=== PATIENT | female | born 1995 | race Caucasian/White ===

== ENCOUNTER 2023-08-14 14:55 | Emergency (ER) | payer MEDICAID, SELFPAY ==
[2023-08-14 15:00] VITALS: BP 140/79; PULSE 91; TEMP 37.2; O2SAT 95; BMI 33.8
--- NOTE | 2023-08-14 15:13 | ED_ITS ---
HPI HPI - General Adult General Chief complaint: Abdominal Pain Stated complaint: UTI SYMPTOMS, NAUSEA, ABDOMINAL PAIN Time Seen by Provider: 08/14/23 14:57 Source: patient Mode of arrival: walk-in Limitations: no limitations History of Present Illness HPI narrative: Patient presents to ED complaining of nausea vomiting and lower abdominal pain. She has low-grade fever at 99. She has a history of UTIs and started having some frequency yesterday. She took Azo and then today started having right lower abdominal pain. She has some mild right flank pain but more of its anterior. She also reports history of ovarian cyst which feels similar to this in the past. She reports that she is unable to get because she has had a surgery on her tubes before. She reports 2 episodes of vomiting today. She is alert, ambulated to the bathroom and back in no acute distress. She does still have her gallbladder and appendix. Related Data Home Medications ?Medication ?Instructions ?Recorded ?Confirmed cariprazine 3 mg capsule (Vraylar) mg 08/14/23 lamotrigine 100 mg tablet mg 08/14/23 lamotrigine 150 mg tablet mg 08/14/23 sertraline 50 mg tablet mg 08/14/23 Previous Rx's ?Medication ?Instructions ?Recorded ciprofloxacin HCl 500 mg tablet 500 mg PO BID 7 days #14 tabs 08/14/23 (Cipro) ondansetron 4 mg disintegrating 4 mg PO DAILY PRN nausea and 08/14/23 tablet vomiting #15 tabs oxycodone-acetaminophen 5 mg-325 1 tab PO Q6H #10 tabs 08/14/23 mg tablet (Percocet) tamsulosin 0.4 mg capsule (Flomax) 0.4 mg PO DAILY #14 caps 08/14/23 Allergies Allergy/AdvReac Type Severity Reaction Status Date / Time No Known Drug Allergies Allergy Verified 08/14/23 15:02 Opioid HPI Opioid Management Most Recent Opioid Data: Last Pain Scale 6 08/14/23 17:02 Last MAR Pain Assessment 08/14/23 17:02 Review of Systems ROS Status of ROS 10 or more systems reviewed and unremark able except as noted in history and below Exam Narrative Exam Narrative: Time Seen: [] Vital Signs: [Per nurse's notes.] General: [Alert] Skin: [Warm, dry, no rash.] Head: [Normocephalic, atraumatic.] Neck: [Supple, trachea midline.] Eye: [Pupils are equal, round and reactive to light, extraocular movements are intact, normal conjunctiva.] Ears, nose, mouth and throat: oral mucosa moist. Cardiovascular: [Regular rate and rhythm, no murmur.] Respiratory: [Lungs are clear to auscultation, respirations are non-labored, breath sounds are equal.] Chest wall: [No tenderness, no deformity.] Gastrointestinal: [Soft, Mild to moderate tenderness right lower quadrant non distended, normal bowel sounds.] MSK: 5 out of 5 muscle strength x 4 extremities no calf pain or edema Lymphatics: [No lymphadenopathy.] Psychiatric: [Cooperative, appropriate mood & affect.] Neurological: [Alert and oriented to person, place, time, and situation, no focal neurological deficit observed.] Constitutional Vital Signs, click to edit/add: Last Vital Signs Temp 99.0 F 08/14/23 15:00 Pulse 91 H 08/14/23 15:00 Resp 16 08/14/23 15:00 BP 140/79 08/14/23 15:00 Pulse Ox 95 08/14/23 15:00 O2 Del Method Room Air 08/14/23 15:00 Course Vital Signs Vital signs: Vital Signs Temperature 99.0 F 08/14/23 15:00 Pulse Rate 91 H 08/14/23 15:00 Respiratory Rate 16 08/14/23 15:00 Blood Pressure 140/79 08/14/23 15:00 Pulse Oximetry 95 08/14/23 15:00 Oxygen Delivery Method Room Air 08/14/23 15:00 Temperature 99.0 F 08/14/23 15:00 Pulse Rate 91 H 08/14/23 15:00 Respiratory Rate 16 08/14/23 15:00 Blood Pressure 140/79 08/14/23 15:00 Pulse Oximetry 95 08/14/23 15:00 Oxygen Delivery Method Room Air 08/14/23 15:00 Medical Decision Making [facility] Narrative Medical decision making narrative: Patient has a 2 mm stone on the right. White blood cell count 13. BUN/creatinine are normal. Patient's pain is better with the medication although not completely resolved. She was given another dose of pain medication which did help. Patient will be sent home with pain medicine nausea medicine and Cipro. Her mom worked for a urology office for many years and she states she will be able to get close follow-up with urology. Patient instructed to return if fevers chills vomiting worsening pain or any other symptoms persist. Patient comfortable care plan for home. Differential Diagnosis Differential Diagnosis: UTI, pyelonephritis, kidney stone, acute appendicitis Medical Records Medical records reviewed: Yes I reviewed the patient's medical records Lab Data Lab results reviewed: Yes I reviewed the patient's lab results Labs: Lab Results 08/14/23 08/14/23 Range/Units 15:27 15:30 WBC 13.1 H (4.0-11.0) 10^3/uL RBC 4.72 (4.20-5.40) 10^6/uL Hgb 12.3 (12.0-16.0) g/dL Hct 38.5 (36.0-48.0) % MCV 81.6 (81.0-99.0) fL MCH 26.1 L (26.7-34.0) pg MCHC 31.9 (29.9-35.2) g/dL RDW 14.9 (11.0-15.0) % Plt Count 473 H (150-450) 10^3/uL MPV 9.3 L (9.5-13.5) fL Neut % (Auto) 62.6 (43.0-75.0) % Lymph % (Auto) 29.2 (20.5-60.0) % [place] % (Auto) 5.7 (1.7-12.0) % Eos % (Auto) 1.8 (0.9-7.0) % Baso % (Auto) 0.4 (0.2-2.0) % Neut # (Auto) 8.2 H (1.4-6.5) 10^3/uL Lymph # (Auto) 3.8 (1.2-3.8) 10^3/uL [place] # (Auto) 0.8 (0.3-0.8) 10^3/uL Eos # (Auto) 0.2 (0.0-0.7) 10^3/uL Baso # (Auto) 0.1 (0.0-0.1) 10^3/uL Abs Immat Gran (auto) 0.04 H (0.00-0.03) 10^3/uL Imm/Tot Granulo (auto) 0.3 (0.0-0.5) % Sodium 140 (136-145) mmol/L Potassium 3.7 (3.5-5.1) mmol/L Chloride 102 (98-107) mmol/L Carbon Dioxide 28.9 (21.0-32.0) mmol/L Anion Gap 12.8 BUN 17.0 (7.0-18.0) mg/dL Creatinine 0.93 (0.55-1.02) mg/dL Est GFR ( Amer) >60 (>=60) Est GFR (Non-Af Amer) >60 (>=60) BUN/Creatinine Ratio 18.3 Glucose 89 (74-106) mg/dL Calcium 9.1 (8.5-10.1) mg/dL Total Bilirubin 0.3 (0.2-1.0) mg/dL AST 8 L (15-37) U/L ALT 32 (14-59) U/L Alkaline Phosphatase 127 H (46-116) U/L Total Protein 8.3 H (6.4-8.2) g/dL Albumin 3.9 (3.4-5.0) g/dL Globulin 4.4 g/dL Albumin/Globulin Ratio 0.9 Urine Color Dk. orange (YELLOW) Urine Clarity Clear (CLEAR) Urine pH Color interference A (5.0-9.0) Ur Specific [place] 1.025 (1.005-1.025) Urine Protein Color interference A (NEG/TRACE) mg/dL Urine Glucose (UA) Color interference A (NEGATIVE) mg/dL Urine Ketones Color interference A (NEGATIVE) mg/dL Urine Occult Blood Color interference A (NEGATIVE) Urine Nitrite Color interference A (NEGATIVE) Urine Bilirubin Color interference A (NEGATIVE) Urine Urobilinogen Color interference A (0.2-1.0) EU/dL Ur Leukocyte Esterase Color interference A (NEGATIVE) Urine RBC 20-50 A (0-2) #/HPF Urine WBC 0-2 A (NONE SEEN) #/HPF Ur Squamous Epith Cells Few A (NONE/RARE) #/LPF Urine Crystals None seen (None Seen) #/HPF Urine Bacteria Trace A (NONE SEEN) #/HPF Urine Casts None seen (NONE SEEN) #/LPF Urine Mucus Trace A (NONE SEEN) Ur Culture Indicated? No Urine HCG, Qual Negative (NEGATIVE) Imaging Data CT scan - abdomen: Radiologist's impression: ITS Impressions Abdomen/Pelvis CT 08/14/23 16:07 IMPRESSION: 1. Obstructing 2 mm right UVJ stone resulting in mild hydronephrosis. Bilateral nephrolithiasis.. 2. Mild thickening of the terminal ileum. Correlate for terminal ileitis. Electronically authenticated by: MIL KILLIAN Date: 08/14/2023 16:53 Discharge Plan Discharge Stand Alone Forms: Portal Instructions Chief Complaint: Abdominal Pain Clinical Impression: Kidney stone Patient Disposition: Home, Self-Care Time of Disposition Decision: 17:07 Condition: Good Mode of Transportation: Private Vehicle Prescriptions / Home Meds: New ciprofloxacin HCl [Cipro] 500 mg tablet 500 mg PO BID 7 Days Qty: 14 0RF oxycodone-acetaminophen [Percocet] 5-325 mg tablet 1 tab PO Q6H Qty: 10 0RF tamsulosin [Flomax] 0.4 mg capsule 0.4 mg PO DAILY Qty: 14 0RF ondansetron 4 mg tablet,disintegrating 4 mg PO DAILY PRN (Reason: nausea and vomiting) Qty: 15 0RF No Action lamotrigine 150 mg tablet sertraline 50 mg tablet lamotrigine 100 mg tablet Vraylar 3 mg capsule Print Language: Hungarian Instructions: Kidney Stones (ED) Referrals: CHETAN RUTH [Primary Care Provider] - 1 week
[2023-08-14] MEDS: ONDANSETRON PF 4 MG/2 ML VIAL IV (15:33)
[2023-08-14] MEDS: KETOROLAC TROMETHAMINE 30 MG/ML VIAL 15 MG IVP (15:35)
[2023-08-14] MEDS: 0.9 % SODIUM CHLORIDE 1,000 ML 999 ML IV (15:37)
[2023-08-14 15:52] LABS: Basophils Absolute Auto 0.1 10^3/uL (0.0-0.1); Basophils Percent Auto 0.4 % (0.2-2.0); Eosinophils Absolute Auto 0.2 10^3/uL (0.0-0.7); Eosinophils Percent Auto 1.8 % (0.9-7.0); Hematocrit 38.5 % (36.0-48.0); Hemoglobin 12.3 g/dL (12.0-16.0); Immature Granulocytes Abs Auto 0.04 10^3/uL (0.00-0.03); Immature Granulocytes Pct Auto 0.3 % (0.0-0.5); Lymphocytes Absolute Auto 3.8 10^3/uL (1.2-3.8); Lymphocytes Percent Auto 29.2 % (20.5-60.0); Mean Corpuscular HGB Conc 31.9 g/dL (29.9-35.2); Mean Corpuscular Hemoglobin 26.1 pg (26.7-34.0); Mean Corpuscular Volume 81.6 fL (81.0-99.0); Mean Platelet Volume 9.3 fL (9.5-13.5); Monocytes Absolute Auto 0.8 10^3/uL (0.3-0.8); Monocytes Percent Auto 5.7 % (1.7-12.0); Neutrophils Absolute Auto 8.2 10^3/uL (1.4-6.5); Neutrophils Percent Auto 62.6 % (43.0-75.0); Platelet Count 473 10^3/uL (150-450); Red Blood Count 4.72 10^6/uL (4.20-5.40); Red Cell Distribution Width 14.9 % (11.0-15.0); White Blood Count 13.1 10^3/uL (4.0-11.0)
[2023-08-14 15:53] LABS: Clarity Urine CLEAR (CLEAR); Color Urine DK. ORANGE (YELLOW); Specific Gravity Urine 1.025 (1.005-1.025)
[2023-08-14 15:56] LABS: HCG Qualitative Urine* NEGATIVE (NEGATIVE); Internal Control Within Normal Limits
[2023-08-14 16:00] LABS: Bilirubin Urine COLOR INTERFERENCE (NEGATIVE); Blood Urine COLOR INTERFERENCE (NEGATIVE); Glucose Urine UA COLOR INTERFERENCE mg/dL (NEGATIVE); Ketones Urine COLOR INTERFERENCE mg/dL (NEGATIVE); Leukocyte Esterase Urine COLOR INTERFERENCE (NEGATIVE); Nitrite Urine COLOR INTERFERENCE (NEGATIVE); Protein Urine COLOR INTERFERENCE mg/dL (NEG/TRACE); Urine Microscopic Indicated YES; Urobilinogen Urine COLOR INTERFERENCE EU/dL (0.2-1.0); pH Urine COLOR INTERFERENCE (5.0-9.0)
[2023-08-14 16:02] LABS: Bacteria Urine TRACE #/HPF (NONE SEEN); Cast Seen? NONE SEEN #/LPF (NONE SEEN); Crystals Seen? None Seen #/HPF (None Seen); Mucus Urine TRACE (NONE SEEN); RBC Urine 20-50 #/HPF (0-2); Squamous Epithelial Cell Urine FEW #/LPF (NONE/RARE); Urine Culture Indicated NO; WBC Urine 0-2 #/HPF (NONE SEEN)
[2023-08-14 16:06] LABS: Alanine Aminotransferase 32 U/L (14-59); Albumin Globulin Ratio 0.9; Albumin Level 3.9 g/dL (3.4-5.0); Alkaline Phosphatase 127 U/L (46-116); Anion Gap 12.8; Aspartate Amino Transferase 8 U/L (15-37); BUN Creatinine Ratio 18.3; Bilirubin Total 0.3 mg/dL (0.2-1.0); Calcium 9.1 mg/dL (8.5-10.1); Carbon Dioxide 28.9 mmol/L (21.0-32.0); Chloride 102 mmol/L (98-107); Estimated GFR (African America >60 (>=60); Estimated GFR (Non-African Ame >60 (>=60); Globulin 4.4 g/dL; Glucose 89 mg/dL (74-106); Potassium 3.7 mmol/L (3.5-5.1); Sodium 140 mmol/L (136-145); Total Protein 8.3 g/dL (6.4-8.2)
--- NOTE | 2023-08-14 16:07 | CT_ITS ---
The [address] [address] Patient Name: LEONA GOODSON MRN: [id number] date: 1995 Sex: F Assigned Patient Location: ER Current Patient Location: ER Accession/Order Number: [id number] Exam Date: 08/14/2023 16:11 Report Date: 08/14/2023 16:53 At the request of: MONET GAYTAN Procedure: CT abdomen pelvis w con CT ABDOMEN/PELVIS WITH IV CONTRAST. INDICATION: RLQ pain. COMPARISON: 09/28/2011. TECHNIQUE: Contiguous axial images were obtained from the lung bases to the pelvic floor following the intravenous administration of contrast. Coronal and sagittal reformations are provided. FINDINGS: LOWER LUNGS: Clear. LIVER/BILIARY TREE: No mass. No intrahepatic ductal dilatation. GALLBLADDER: No significant gallbladder wall thickening. No radiopaque stone. CBD: Normal CBD. SPLEEN: Normal in size. PANCREAS: No acute findings. No peripancreatic fluid or inflammation. No pancreatic duct dilatation. No discrete mass. ADRENALS: Normal. KIDNEYS: There is an obstructing 2 x 2 mm right UVJ stone resulting in mild hydronephrosis There are nonobstructing bilateral renal stones measuring up to 6 mm. STOMACH AND BOWEL: Stomach is unremarkable. No dilated bowel loops. There is mild thickening of the terminal ileum APPENDIX: Unremarkable. PERITONEAL CAVITY: No fluid. No fat stranding. ABDOMINAL WALL: No subcutaneous stranding. No subcutaneous fluid collection. There is a small umbilical hernia containing fat LYMPH NODES: No mesenteric or retroperitoneal lymphadenopathy by CT criteria. ABDOMINAL AORTA: No aneurysm. PELVIS: Right UVJ 2 mm stone as described above MUSCULOSKELETAL: No acute osseous abnormality. CT/CT abdomen pelvis w con IMPRESSION: 1. Obstructing 2 mm right UVJ stone resulting in mild hydronephrosis. Bilateral nephrolithiasis.. 2. Mild thickening of the terminal ileum. Correlate for terminal ileitis. Electronically authenticated by: MIL KILLIAN Date: 08/14/2023 16:53
[2023-08-14] MEDS: MORPHINE SULFATE 4 MG/ML VIAL IV (17:02)
[2023-08-14 17:19] VITALS: BP 104/60; PULSE 88; O2SAT 100
== END 2023-08-14 17:19 | disposition home or self-care (01) ==
PROVIDERS: Emergency Provider Emergency Medicine; PCP Family Medicine
DX: N20.0 Calculus of kidney (principal); Z87.440 Personal history of urinary (tract) infections
CPT/HCPCS: 36415; 74177; 80053; 81001; 84703; 85025; 96361; 96374; 96375; 99285; J1885; J2270; J2405; Q9967

== ENCOUNTER 2023-08-16 04:43 | Observation (INO) | payer MEDICAID, SELFPAY ==
[2023-08-16] VITALS (15 sets, daily range): BP systolic 88–147; BP diastolic 59–95; PULSE 61–86; TEMP 36.7–36.9; O2SAT 90–97; BMI 33.8; BMI 35.3
--- NOTE | 2023-08-16 05:00 | XR_ITS ---
The [address] [address] Patient Name: LEONA GOODSON MRN: [id number] date: 1995 Sex: F Assigned Patient Location: ER Current Patient Location: ER Accession/Order Number: [id number] Exam Date: 08/16/2023 06:08 Report Date: 08/16/2023 06:29 At the request of: EVANS MARKER Procedure: XR abdomen 1V EXAM: XR abdomen 1V HISTORY: right sided kidney stone COMPARISON: CT abdomen pelvis, 08/14/2023. TECHNIQUE: AP abdominal x-ray. FINDINGS: There are 2 adjacent stones in the upper pole of the right kidney measuring 3 mm. Previously noted 2 mm stone at the right UVJ is not visualized. Several pelvic phleboliths are incidentally noted. Bowel gas pattern appears normal. XR/XR abdomen 1V IMPRESSION: 1. Right-sided nephrolithiasis. 2. Nonvisualization of the tiny 2 mm stone at the right UVJ seen on recent abdominal CT scan. This may be too small to visualize or passed in the interval. 3. No acute abdominal findings. Electronically authenticated by: CHRISTINE GREEN Date: 08/16/2023 06:29
--- NOTE | 2023-08-16 05:17 | ED.ABDPAIN1 ---
HPI - Abdominal Pain General Chief Complaint: Abdominal Pain Stated Complaint: ABD PAIN Time Seen by Provider: 08/16/23 04:50 Source: patient Mode of arrival: walk-in Limitations: no limitations History of Present Illness HPI narrative: This 27-year-old female who was diagnosed with a 2 mm right-sided kidney stone on Sunday, 2 days ago presents for evaluation of intractable pain and intractable nausea and vomiting. She states she cannot keep down the nausea medicine, the antibiotics, the Flomax or the Percocet she was prescribed for pain control and nausea control and to help her pass the stone. She has not had any fever. She denies any chest pain or shortness of breath. She states she has been vomiting so much that she is barely urinating. I reviewed her chart from her ED visit on 08/14/2023. At that time she presented with a low-grade fever of 99 and had a white count of 13 and antibiotics were ordered. Her urine at that time was contaminated with Azo and not cultured. Related Data Home Medications ?Medication ?Instructions ?Recorded ?Confirmed cariprazine 3 mg capsule (Vraylar) mg 08/14/23 lamotrigine 100 mg tablet mg 08/14/23 lamotrigine 150 mg tablet mg 08/14/23 sertraline 50 mg tablet mg 08/14/23 Previous Rx's ?Medication ?Instructions ?Recorded ciprofloxacin HCl 500 mg tablet 500 mg PO BID 7 days #14 tabs 08/14/23 (Cipro) ondansetron 4 mg disintegrating 4 mg PO DAILY PRN nausea and 08/14/23 tablet vomiting #15 tabs oxycodone-acetaminophen 5 mg-325 1 tab PO Q6H #10 tabs 08/14/23 mg tablet (Percocet) tamsulosin 0.4 mg capsule (Flomax) 0.4 mg PO DAILY #14 caps 08/14/23 Allergies Allergy/AdvReac Type Severity Reaction Status Date / Time No Known Drug Allergies Allergy Verified 08/16/23 04:50 Review of Systems ROS Status of ROS 10 or more systems reviewed and unremarkable except as noted in history and below Exam Narrative Exam Narrative: Vital signs and Nursing Notes reviewed: Patient is afebrile with a normal pulse, blood pressure is elevated at 147/95, she is not hypoxic with pulse ox of 96% on room air General: Awake, alert, nontoxic but uncomfortable appearing female, she is lying on her right side and crying, no respiratory distress, multiple episodes of dry heaves in the emergency department HEENT: Normocephalic atraumatic, mucous membranes are pink and dry Chest: Lungs are clear to auscultation with good air entry, there is no wheezing rhonchi or rales appreciated no accessory muscle use, patient is speaking in complete sentences-no chest wall tenderness to palpation CVS: Regular rate and rhythm S1-S2, no murmurs rubs or gallops, pulses are brisk and equal bilaterally ABD: Soft, nondistended, mild tenderness in the right lower quadrant and along the distribution of the right ureter and right lower lumbar region Extremities: Moving all extremities, no lower extremity tenderness or swelling noted, negative Homans' sign, pulses are brisk and equal bilaterally Skin: Normal in appearance without rash,pallor, petechiae or purpura Neuro: No focal deficits Constitutional Vital Signs, click to edit/add: Last Vital Signs Temp 98.1 F 08/16/23 04:47 Pulse 84 08/16/23 04:47 Resp 20 08/16/23 04:47 BP 147/95 H 08/16/23 04:47 Pulse Ox 96 08/16/23 04:47 O2 Del Method Room Air 08/16/23 04:47 Course Vital Signs Vital signs: Vital Signs Temperature 98.1 F 08/16/23 04:47 Pulse Rate 84 08/16/23 04:47 Respiratory Rate 20 08/16/23 04:47 Blood Pressure 147/95 H 08/16/23 04:47 Pulse Oximetry 96 08/16/23 04:47 Oxygen Delivery Method Room Air 08/16/23 04:47 Temperature 98.1 F 08/16/23 04:47 Pulse Rate 84 08/16/23 04:47 Respiratory Rate 20 08/16/23 04:47 Blood Pressure 147/95 H 08/16/23 04:47 Pulse Oximetry 96 08/16/23 04:47 Oxygen Delivery Method Room Air 08/16/23 04:47 MDM - Abdominal Pain MDM Narrative Medical decision making narrative: This 27-year-old female who was diagnosed with a 2 mm right-sided kidney stone on [place] [address] Brar and discharged home with Cipro, Zofran, Percocet and Flomax presents for evaluation of ongoing right lower quadrant abdominal pain with intractable nausea and vomiting. She states she cannot keep down any of her medications and is still having pain. She was noted to have a low-grade fever of 99 when she was here on Sunday. Her urine did not show any sign of infection but was contaminated with Azo and culture was not ordered. In light of this she was medicated with IV fluids, IV Zofran, IV Toradol, IV Dilaudid, IM Phenergan and a dose of IV Rocephin. Routine labs were ordered and she has an elevated WBC count at 15 today, 13.3 2 days ago-she has not had a fever and this may be due to her vomiting. Her BUN and creatinine are elevated compared to her baseline with a creatinine of 1.29 today likely indicating a degree of dehydration. After IV fluids Zofran Toradol Dilaudid and Phenergan she is feeling better. She is tolerating ice chips. She will receive an additional liter of normal saline and if she is able to tolerate ice chips and pain is under control she will be discharged home. I will change her antiemetics to Phenergan and her pain medication to [place] as her nausea and vomiting may be related to the medications as well as the recent kidney stone. X-ray of the abdomen does not show any stone at this time however it was noted that it may be too small to visualize on a KUB film. Medical Records Medical records narrative: [place] [address] XRay Report Signed Patient: LEONA GOODSON MR#: [id number] : 1995 Acct:[id number] Age/Sex: 27 / F ADM Date: 08/16/23 Loc: ER Attending Dr: Ordering Physician: Evans Marie Date of Service: 08/16/23 Procedure(s): XR abdomen 1V Accession Number(s): [id number] cc: CHETAN RUTH ; Evans Marie~ The [place] [id number] Patient Name: LEONA GOODSON MRN: [id number] date: 1995 Sex: F Assigned Patient Location: ER Current Patient Location: ER Accession/Order Number: [id number] Exam Date: 08/16/2023 06:08 Report Date: 08/16/2023 06:29 At the request of: EVANS MARKER Procedure: XR abdomen 1V EXAM: XR abdomen 1V HISTORY: right sided kidney stone COMPARISON: CT abdomen pelvis, 08/14/2023. TECHNIQUE: AP abdominal x-ray. FINDINGS: There are 2 adjacent stones in the upper pole of the right kidney measuring 3 mm. Previously noted 2 mm stone at the right UVJ is not visualized. Several pelvic phleboliths are incidentally noted. Bowel gas pattern appears normal. XR/XR abdomen 1V IMPRESSION: 1. Right-sided nephrolithiasis. 2. Nonvisualization of the tiny 2 mm stone at the right UVJ seen on recent abdominal CT scan. This may be too small to visualize or passed in the interval. 3. No acute abdominal findings Lab Data Labs: Lab Results 08/16/23 08/16/23 Range/Units 05:05 05:10 WBC 15.3 H (4.0-11.0) 10^3/uL RBC 4.83 (4.20-5.40) 10^6/uL Hgb 12.8 (12.0-16.0) g/dL Hct 39.4 (36.0-48.0) % MCV 81.6 (81.0-99.0) fL MCH 26.5 L (26.7-34.0) pg MCHC 32.5 (29.9-35.2) g/dL RDW 14.8 (11.0-15.0) % Plt Count 532 H (150-450) 10^3/uL MPV 9.4 L (9.5-13.5) fL Neut % (Auto) 78.8 H (43.0-75.0) % Lymph % (Auto) 15.7 L (20.5-60.0) % [place] % (Auto) 4.2 (1.7-12.0) % Eos % (Auto) 0.6 L (0.9-7.0) % Baso % (Auto) 0.4 (0.2-2.0) % Neut # (Auto) 12.0 H (1.4-6.5) 10^3/uL Lymph # (Auto) 2.4 (1.2-3.8) 10^3/uL [place] # (Auto) 0.6 (0.3-0.8) 10^3/uL Eos # (Auto) 0.1 (0.0-0.7) 10^3/uL Baso # (Auto) 0.1 (0.0-0.1) 10^3/uL Abs Immat Gran (auto) 0.05 H (0.00-0.03) 10^3/uL Imm/Tot Granulo (auto) 0.3 (0.0-0.5) % Sodium 138 (136-145) mmol/L Potassium 4.1 (3.5-5.1) mmol/L Chloride 101 (98-107) mmol/L Carbon Dioxide 27.6 (21.0-32.0) mmol/L Anion Gap 13.5 BUN 23.0 H (7.0-18.0) mg/dL Creatinine 1.29 H (0.55-1.02) mg/dL Est GFR ( Amer) 60 (>=60) Est GFR (Non-Af Amer) 50 L (>=60) BUN/Creatinine Ratio 17.8 Glucose 135 H (74-106) mg/dL Calcium 9.3 (8.5-10.1) mg/dL Total Bilirubin 0.3 (0.2-1.0) mg/dL AST 12 L (15-37) U/L ALT 30 (14-59) U/L Alkaline Phosphatase 125 H (46-116) U/L Total Protein 8.6 H (6.4-8.2) g/dL Albumin 4.0 (3.4-5.0) g/dL Globulin 4.6 g/dL Albumin/Globulin Ratio 0.9 Urine Color Lt. yellow (YELLOW) Urine Clarity Clear (CLEAR) Urine pH 7.0 (5.0-9.0) Ur Specific [place] 1.025 (1.005-1.025) Urine Protein Negative (NEG/TRACE) mg/dL Urine Glucose (UA) Negative (NEGATIVE) mg/dL Urine Ketones Negative (NEGATIVE) mg/dL Urine Occult Blood Small A (NEGATIVE) Urine Nitrite Positive A (NEGATIVE) Urine Bilirubin Negative (NEGATIVE) Urine Urobilinogen 0.2 (0.2-1.0) EU/dL Ur Leukocyte Esterase Negative (NEGATIVE) Urine RBC 2-5 A (0-2) #/HPF Urine WBC 5-10 A (NONE SEEN) #/HPF Ur Squamous Epith Cells Few A (NONE/RARE) #/LPF Urine Crystals Seen A (None Seen) #/HPF Amorphous Sediment Few Urine Bacteria Moderate A (NONE SEEN) #/HPF Urine Casts None seen (NONE SEEN) #/LPF Urine Mucus Large A (NONE SEEN) Ur Culture Indicated? Yes Discharge Plan Discharge Chief Complaint: Abdominal Pain Clinical Impression: Kidney stone Patient Disposition: Still a Patient Prescriptions / Home Meds: No Action lamotrigine 150 mg tablet sertraline 50 mg tablet lamotrigine 100 mg tablet Vraylar 3 mg capsule ciprofloxacin HCl [Cipro] 500 mg tablet 500 mg PO BID 7 Days Qty: 14 0RF oxycodone-acetaminophen [Percocet] 5-325 mg tablet 1 tab PO Q6H Qty: 10 0RF tamsulosin [Flomax] 0.4 mg capsule 0.4 mg PO DAILY Qty: 14 0RF ondansetron 4 mg tablet,disintegrating 4 mg PO DAILY PRN (Reason: nausea and vomiting) Qty: 15 0RF Print Language: Montenegrin Referrals: CHETAN RUTH [Primary Care Provider] - 1 week
[2023-08-16 05:34] LABS: Basophils Absolute Auto 0.1 10^3/uL (0.0-0.1); Basophils Percent Auto 0.4 % (0.2-2.0); Eosinophils Absolute Auto 0.1 10^3/uL (0.0-0.7); Eosinophils Percent Auto 0.6 % (0.9-7.0); Hematocrit 39.4 % (36.0-48.0); Hemoglobin 12.8 g/dL (12.0-16.0); Immature Granulocytes Abs Auto 0.05 10^3/uL (0.00-0.03); Immature Granulocytes Pct Auto 0.3 % (0.0-0.5); Lymphocytes Absolute Auto 2.4 10^3/uL (1.2-3.8); Lymphocytes Percent Auto 15.7 % (20.5-60.0); Mean Corpuscular HGB Conc 32.5 g/dL (29.9-35.2); Mean Corpuscular Hemoglobin 26.5 pg (26.7-34.0); Mean Corpuscular Volume 81.6 fL (81.0-99.0); Mean Platelet Volume 9.4 fL (9.5-13.5); Monocytes Absolute Auto 0.6 10^3/uL (0.3-0.8); Monocytes Percent Auto 4.2 % (1.7-12.0); Neutrophils Percent Auto 78.8 % (43.0-75.0); Platelet Count 532 10^3/uL (150-450); Red Blood Count 4.83 10^6/uL (4.20-5.40); Red Cell Distribution Width 14.8 % (11.0-15.0); White Blood Count 15.3 10^3/uL (4.0-11.0)
[2023-08-16] MEDS: ONDANSETRON PF 4 MG/2 ML VIAL IV (05:34)
[2023-08-16 05:35] LABS: Bilirubin Urine NEGATIVE (NEGATIVE); Blood Urine SMALL (NEGATIVE); Clarity Urine CLEAR (CLEAR); Color Urine LT. YELLOW (YELLOW); Glucose Urine UA NEGATIVE (NEGATIVE); Ketones Urine NEGATIVE (NEGATIVE); Leukocyte Esterase Urine NEGATIVE (NEGATIVE); Nitrite Urine POSITIVE (NEGATIVE); Protein Urine NEGATIVE (NEG/TRACE); Specific Gravity Urine 1.025 (1.005-1.025); Urobilinogen Urine 0.2 EU/dL (0.2-1.0)
[2023-08-16] MEDS: HYDROMORPHONE HCL 1 MG/ML CARTRIDGE IV (05:35)
[2023-08-16] MEDS: KETOROLAC TROMETHAMINE 30 MG/ML VIAL IVP (05:38)
[2023-08-16] MEDS: FAMOTIDINE/PF 20 MG/2 ML VIAL IV (05:39)
[2023-08-16] MEDS: 0.9 % SODIUM CHLORIDE 1,000 ML 1000 ML IV ×2 (05:41→06:22)
[2023-08-16] MEDS: PROMETHAZINE HCL 25 MG/ML VIAL 12.5 MG IM (05:41)
[2023-08-16 05:45] LABS: Amorphous Sediment Urine FEW; Bacteria Urine MODERATE #/HPF (NONE SEEN); Cast Seen? NONE SEEN #/LPF (NONE SEEN); Crystals Seen? Seen #/HPF (None Seen); Mucus Urine LARGE (NONE SEEN); Squamous Epithelial Cell Urine FEW #/LPF (NONE/RARE); Urine Culture Indicated YES
[2023-08-16 05:50] LABS: Alanine Aminotransferase 30 U/L (14-59); Albumin Globulin Ratio 0.9; Alkaline Phosphatase 125 U/L (46-116); Anion Gap 13.5; Aspartate Amino Transferase 12 U/L (15-37); BUN Creatinine Ratio 17.8; Bilirubin Total 0.3 mg/dL (0.2-1.0); Calcium 9.3 mg/dL (8.5-10.1); Carbon Dioxide 27.6 mmol/L (21.0-32.0); Chloride 101 mmol/L (98-107); Estimated GFR (African America 60 (>=60); Estimated GFR (Non-African Ame 50 (>=60); Globulin 4.6 g/dL; Glucose 135 mg/dL (74-106); Potassium 4.1 mmol/L (3.5-5.1); Sodium 138 mmol/L (136-145); Total Protein 8.6 g/dL (6.4-8.2)
[2023-08-16] MEDS: CEFTRIAXONE 1,000 MG in 0.9 % SODIUM CHLORIDE 50 ML 100 MG IV (06:18)
--- NOTE | 2023-08-16 09:48 | US_ITS ---
[address] [address] Patient Name: LEONA GOODSON MRN: [id number] date: 1995 Sex: F Assigned Patient Location: MS Current Patient Location: MS Accession/Order Number: [id number] Exam Date: 08/16/2023 11:00 Report Date: 08/16/2023 12:29 At the request of: JENNA ARREOLA Procedure: US renal bladder EXAMINATION: US renal bladder HISTORY: Flank Pain COMPARISON: 08/14/2023 TECHNIQUE: Ultrasound examination was performed of the bladder. FINDINGS: Right Kidney: Normal in size, contour and cortical echotexture. Hydronephrosis. Nonobstructing nephroliths. The cortex measures 0.9 cm. Height: 5.93 cm Length: 12.36 cm Width: 5.71 cm Left Kidney: Normal in size, contour and cortical echotexture. No hydronephrosis or solid cortical mass. Nonobstructing nephrolithiasis measuring up to 7 mm. The cortex measures 0.7 cm Height: 4.88 cm Length: 9.55 cm Width: 4.37 cm Urinary bladder: Prevoid volume 560 mL. Post void volume: 4 mL Distal right ureterolith measuring 6 mm. Ureteral jets: Not visualized on the right, normal on the left US/US renal bladder IMPRESSION: 6 mm distal right ureterolith with mild hydronephrosis Electronically authenticated by: PATEL LEVY Date: 08/16/2023 12:29
--- NOTE | 2023-08-16 09:51 | P.HP_ITS ---
HPI H&P: HPI History of Present Illness Chief complaint: ABD PAIN/ KIDNEY STONE Narrative: Patient with no history of kidney stones had acute onset of pain, was seen in the emergency room and found to have a 2 mm stone and sent home, her pain deteriorated so she Juvencio presented. Repeat KUB did not demonstrate the stone but does show significant hydronephrosis. Patient was admitted for pain control with positive UTI and possible pyelonephritis complicated by kidney stone with moderate hydronephrosis When I saw patient in the medical surgical floor, she was resting comfortably in bed. Did receive pain medication. Discussed plan of care for possible cystoscopy and stent placement later in the day. Patient denied any other complaints Opioid HPI Opioid Management Most Recent Pain and Opioid Data: Last Pain Scale 3 08/16/23 17:00 Last Pain Assessment 08/16/23 19:43 Last ED Pain Assessment 08/14/23 17:18 Last MAR Pain Assessment 08/14/23 17:02 Last ORT Total Score 4 08/16/23 09:46 Last ORT Risk Category Moderate Risk 08/16/23 09:46 Review of Systems ROS Status of ROS 10 or more systems reviewed and unremark able except as noted in history and below [facility] Medical History (Updated 08/16/23 @ 09:49 by Trena Pham) Bipolar 2 disorder ?F31.81 - Bipolar II disorder (ICD-10) Social History Highest level of school completed/degree received: Bachelor's degree Meds Home Medications and Allergies Home Medications ?Medication ?Instructions ?Recorded ?Confirmed ?Type ciprofloxacin HCl 500 mg tablet 500 mg PO BID 7 days #14 tabs 08/14/23 08/16/23 Rx (Cipro) lamotrigine 150 mg tablet 150 mg PO .QHS 08/14/23 08/16/23 History ondansetron 4 mg disintegrating 4 mg PO DAILY PRN nausea and 08/14/23 08/16/23 Rx tablet vomiting #15 tabs oxycodone-acetaminophen 5 mg-325 1 tab PO Q6H #10 tabs 08/14/23 08/16/23 Rx mg tablet (Percocet) tamsulosin 0.4 mg capsule (Flomax) 0.4 mg PO DAILY #14 caps 08/14/23 08/16/23 Rx cariprazine 3 mg capsule (Vraylar) 3 mg PO .QHS 08/16/23 08/16/23 History hyoscyamine sulfate 0.125 mg 0.125 mg sublingual QID #20 tabs 08/16/23 Rx sublingual tablet sertraline 50 mg tablet 50 mg PO .QHS 08/16/23 08/16/23 History Allergies Allergy/AdvReac Type Severity Reaction Status Date / Time No Known Drug Allergies Allergy Verified 08/16/23 04:50 Exam Constitutional Vital Signs, click to edit/add: Last Vital Signs Temp 98.0 F 08/16/23 09:46 Pulse 73 08/16/23 09:46 Resp 18 08/16/23 09:46 BP 100/66 08/16/23 09:46 Pulse Ox 93 L 08/16/23 09:46 O2 Del Method Room Air 08/16/23 09:46 Documenting provider has reviewed patient's vital signs: yes Common normals: no apparent distress HENMT Common normals: normocephalic Chest Common normals: inspection of chest normal Respiratory Common normals: normal respiratory effort and no retractions Cardio Common normals: regular rate and regular rhythm GI Common normals: Normal to inspection, nondistended, normoactive bowel sounds present Results Labs Labs: Short CBC 08/16/23 Range/Units 05:10 WBC 15.3 H (4.0-11.0) 10^3/uL Hgb 12.8 (12.0-16.0) g/dL Hct 39.4 (36.0-48.0) % Plt Count 532 H (150-450) 10^3/uL BMP 08/16/23 05:10 Sodium 138 Potassium 4.1 Chloride 101 Carbon Dioxide 27.6 BUN 23.0 H Creatinine 1.29 H Glucose 135 H Calcium 9.3 Liver Function 08/16/23 Range/Units 05:10 Total Bilirubin 0.3 (0.2-1.0) mg/dL AST 12 L (15-37) U/L ALT 30 (14-59) U/L Alkaline Phosphatase 125 H (46-116) U/L Albumin 4.0 (3.4-5.0) g/dL Urine 08/16/23 Range/Units 05:05 Urine Color Lt. yellow (YELLOW) Urine Clarity Clear (CLEAR) Urine pH 7.0 (5.0-9.0) Ur Specific Stephan 1.025 (1.005-1.025) Urine Protein Negative (NEG/TRACE) mg/dL Urine Glucose (UA) Negative (NEGATIVE) mg/dL Assessment and Plan Assessment and Plan (1) Kidney stone: Plan Uncontrolled hypertension, acute kidney injury with a baseline creatinine of 0.93 progressing to 1.21, that is 138.7% above baseline. Significant leukocytosis, thrombocythemia, elevated liver function tests secondary to acute right-sided pyelonephritis secondary to obstructive kidney stone with moderate hydronephrosis. Case discussed with urology. Plan for cystoscopy later in the day. Plan of care based on findings at cystoscopy Bipolar disorder-continue with home medications Acute kidney injury as outlined above-IV fluids Leukocytosis as outlined above-monitor daily Admission status: With kidney stone, possible discharge later today so placed patient observation status.
[2023-08-16] MEDS: LACTATED RINGER'S SOLUTION 1,000 ML 100 ML IV (10:32)
--- NOTE | 2023-08-16 10:50 | CM.NOTE ---
Rounds made with Dr. Boone. Dr. Boone reviewed plan of care w Emma and plan for OR. Emma verbalizes understanding. Dr. Boone discussed possible discharge later today after surgery
[2023-08-16 10:58] LABS: Lactate/Lactic Acid 1.4 mmol/L (0.4-2.0)
[2023-08-16 11:15] LABS: HCG Qualitative NEGATIVE (NEGATIVE); Internal Control Within Normal Limits
[2023-08-16] MEDS: TAMSULOSIN HCL 0.4 MG CAPSULE 0.400000000000000022 MG PO (12:30)
[2023-08-16] MEDS: CIPROFLOXACIN IN 5 % DEXTROSE 400 MG/200 ML PIGGYBACK 200 MG IV (12:31)
[2023-08-16] MEDS: HYOSCYAMINE SULFATE 0.125 MG TAB.SUBL SL (12:31)
--- NOTE | 2023-08-16 18:47 | PM.DS1 ---
DS: Providers Provider Date of admission: 08/16/23 08:50 Primary care physician: CHETAN RUTH Consults: 08/16/23 09:45 Consult to Pharmacy Routine Consulting Provider: Reason for consultation: Please [place] me when Med Rec is Updated Has provider been notified: No Consult to Urology Routine Consulting Provider: Jesse Ba Reason for consultation: hydronepohrosis Has provider been notified: Yes DS: Diagnosis Discharge Diagnosis (1) Kidney stone: Plan Right-sided hydronephrosis with right sided ureteral lithiasis. Status post cystoscopy DS: Summary Hospital Course Hospital Course: Patient was admitted with hydronephrosis after failed outpatient treatment of nephrolithiasis. Patient was made NPO. She had cystoscopy done. See operative report. Patient stable after procedure and was discharged to home in improving condition. Medications see list. Follow-up with PCP and urology as indicated. Status at Discharge Overall status at discharge: patient is not back to baseline Time Spent with Patient Time attestation: Total time spent providing and/or coordinating discharge services: Time spent: less than 30 minutes Exam Constitutional Vital Signs, click to edit/add: Last Vital Signs Temp 98.0 F 08/16/23 09:46 Pulse 73 08/16/23 09:46 Resp 18 08/16/23 09:46 BP 100/66 08/16/23 09:46 Pulse Ox 97 08/16/23 16:15 O2 Del Method Room Air 08/16/23 16:15 Documenting provider has reviewed patient's vital signs: yes Common normals: no apparent distress HENOH Common normals: normocephalic Chest Common normals: inspection of chest normal Respiratory Common normals: normal respiratory effort and no retractions Cardio Common normals: regular rate and regular rhythm GI Common normals: Normal to inspection, nondistended, normoactive bowel sounds present DS: Data Data Completed and Pending Labs on day of discharge: Labs from last 24 hours 08/16/23 08/16/23 08/16/23 10:11 05:10 05:05 WBC 15.3 H RBC 4.83 Hgb 12.8 Hct 39.4 MCV 81.6 MCH 26.5 L MCHC 32.5 RDW 14.8 Plt Count 532 H MPV 9.4 L Neut % (Auto) 78.8 H Lymph % (Auto) 15.7 L [place] % (Auto) 4.2 Eos % (Auto) 0.6 L Baso % (Auto) 0.4 Neut # (Auto) 12.0 H Lymph # (Auto) 2.4 [place] # (Auto) 0.6 Eos # (Auto) 0.1 Baso # (Auto) 0.1 Abs Immat Gran (auto) 0.05 H Imm/Tot Granulo (auto) 0.3 Sodium 138 Potassium 4.1 Chloride 101 Carbon Dioxide 27.6 Anion Gap 13.5 BUN 23.0 H Creatinine 1.29 H Est GFR ( Amer) 60 Est GFR (Non-Af Amer) 50 L BUN/Creatinine Ratio 17.8 Glucose 135 H Lactate 1.4 Calcium 9.3 Total Bilirubin 0.3 AST 12 L ALT 30 Alkaline Phosphatase 125 H Total Protein 8.6 H Albumin 4.0 Globulin 4.6 Albumin/Globulin Ratio 0.9 Serum HCG, Qual Negative Urine Color Lt. yellow Urine Clarity Clear Urine pH 7.0 Ur Specific [place] 1.025 Urine Protein Negative Urine Glucose (UA) Negative Urine Ketones Negative Urine Occult Blood Small A Urine Nitrite Positive A Urine Bilirubin Negative Urine Urobilinogen 0.2 Ur Leukocyte Esterase Negative Urine RBC 2-5 A Urine WBC 5-10 A Ur Squamous Epith Cells Few A Urine Crystals Seen A Amorphous Sediment Few Urine Bacteria Moderate A Urine Casts None seen Urine Mucus Large A Ur Culture Indicated? Yes Discharge Plan Discharge Disposition: Home, Self-Care Condition: Good Assessment: Pt is A&OX4, speech clear and appropriate. Gait steady without dizziness or complaint. IV discontinued without complications. Denies pain at present time. C/O irritation at urethra. Discussed discharge instructions. Pt educated to best of RN's capabilities. Plan of Treatment: Pt discharged with plan to follow up in office with PCP and Urology. Discharge Medications: New hyoscyamine sulfate 0.125 mg Tablet, Sublingual 0.125 mg sublingual QID Qty: 20 0RF Continued lamotrigine 150 mg tablet 150 mg PO .QHS ciprofloxacin HCl [Cipro] 500 mg tablet 500 mg PO BID 7 Days Qty: 14 0RF oxycodone-acetaminophen [Percocet] 5-325 mg tablet 1 tab PO Q6H Qty: 10 0RF tamsulosin [Flomax] 0.4 mg capsule 0.4 mg PO DAILY Qty: 14 0RF ondansetron 4 mg tablet,disintegrating 4 mg PO DAILY PRN (Reason: nausea and vomiting) Qty: 15 0RF sertraline 50 mg tablet 50 mg PO .QHS Vraylar 3 mg capsule 3 mg PO .QHS Activity: increase activity as tolerated, return to work once cleared by your PCP/specialist and resume usual activities as tolerated Diet: advance to your usual diet Print Language: [place] Patient Instructions: Kidney Stones (GEN), Hydronephrosis (GEN) Forms: Portal Instructions Follow Up Appointments: Call office in the AM to schedule your follow up appointment with Dr Ba as discussed with Physician. Discharge Date/Time: 08/16/23 21:14
--- NOTE | 2023-08-16 19:16 | P.URON_ITS ---
Urology Surgery Operative Note Operative Note Procedure Date: 08/16/23 Time Out Performed: yes Pre-op Diagnosis: Obstructing right ureteral calculus Post-op Diagnosis: other (Same plus distal right ureteral stricture) Procedures performed: 1. Cystoscopy. 2. Right rigid ureteral dilation. 3. Right ureteroscopy. 4. Thulium laser lithotripsy of right ureteral calculus. 5. Stone basket extraction. 6. Placement of 4.8 Ecuadorean variable length right ureteral stent Anesthesia: General-LMA Primary Surgeon: Jesse Ba Complications: None Estimated blood loss (mL): 0 Findings: Distal right ureteral stricture. 4 mm stone proximal to the stricture. Specimens: Right ureteral calculus fragments Drains: 4.8 Ecuadorean variable length right ureteral stent Indications for Procedures: This lady has been through the ER twice for a 2 mm right distal ureteral calculus. She was admitted to the hospital earlier today for pain management and urology consultation. She now presents for cystoscopy, right ureteroscopy, stone manipulation and possible stent placement. She has signed an informed consent after risks were explained. Detailed description of Procedure: The patient was brought to the operating room and placed on the operating room table in the supine position. SCDs were placed on the lower extremities and turned on and functioning during the entire case. Timeout was done by all parties in the room. We all agreed upon the patient's identification and the planned procedures for this patient. Genn. anesthesia was then administered. The patient was then repositioned into the modified dorsal lithotomy position. All pressure points were satisfactorily padded. Genitalia were sterilely prepped and draped in usual fashion.I started by passing a 22 Ecuadorean Olympus cystoscope per urethra and into the bladder. Panendoscopy in the bladder revealed no evidence of any tumors or stones. The right ureteral orifice was edematous and erythematous. While using fluoroscopy I could not appreciate a stone. I then passed a Glidewire through the scope and cannulated the right ureter and I could feel the tip of the wire hitting a stone and going beyond it into the kidney. I then used a 8 and 10 Ecuadorean rigid dilator to dilate the distal ureter. I could feel a popping sensation through a stricture. Cloudy debris then rolled out of the right ureter into the bladder. The cystoscope was removed. I then passed a semirigid ureteroscope up the right ureter and got right to the stone. It was linear and oblong. I then used a 200 Angstrom laser fiber and made contact with the stone. I then used 6 W On the fragment mode. The stone was cracked up into a few pieces. A nitinol basket was used and the pieces were extracted out and dumped in the base of the bladder. After going up and down the ureter numerous times it was stone free when I was done. The ureteroscope was removed. The cystoscope was backloaded over the wire and passed into the bladder and a 4.8 Ecuadorean ureteral stent was slid over the wire up to the kidney. The wire was removed and there were good curls in the kidney and in the bladder. I then used the Ilich evacuator and the stone pieces were removed from the base of the bladder and these were sent for stone analysis. The bladder was drained of its contents and the scope was then removed. She was then transferred to a [facility] bed and wheeled to PACU in stable condition.
--- NOTE | 2023-08-16 19:18 | FL_ITS ---
The [address] [address] Patient Name: LEONA GOODSON MRN: [id number] date: 1995 Sex: F Assigned Patient Location: MS Current Patient Location: Accession/Order Number: [id number] Exam Date: 08/16/2023 18:35 Report Date: 08/17/2023 07:08 At the request of: HAIDER SOUZA Procedure: FL fluoroscopy <1hr NON-READ EXAM: FL fluoroscopy <1hr NON-READ HISTORY: TECHNIQUE: FINDINGS: Please see Operative Report. Electronically authenticated by: RADIOLOGIST NO Date: 08/17/2023 07:08
--- NOTE | 2023-08-16 19:24 | PC.NURSE ---
191 Bedside Nursing report completed. Pt remains in OR at present time. Awaiting PACU notification and updated report.
[2023-08-16] MEDS: SOLIFENACIN SUCCINATE 10 MG TABLET PO (19:29)
--- NOTE | 2023-08-17 13:09 | PM.CN ---
Consult Note: [facility] Data of Consult Consult date: 08/16/23 Requesting Physician: Seth Boone MD Primary Care Provider: CHETAN RUTH Consult Narrative Reason for consult: Obstructing right ureteral calculus and UTI Narrative: This lady presented to the emergency room just a couple days ago with acute right flank pain. She had a CT scan done and this showed a 2 mm distal right ureteral calculus with ipsilateral hydronephrosis. She was discharged to home. Her pain intermittently continued until today when it became severe again. She had some nausea And burning with urination but no fevers or shaking chills. She presented to the emergency room today. Her white count was found to be 15.3 thousand. Her creatinine bumped up to 1.2. She was pancultured and empirically started on Cipro. KUB x-ray was done and no stone was seen. She was admitted for pain management and urologic consultation.Urology was consulted for the above reasons. She has no stones in the past.She does not get recurrent urinary tract infections. cc:: CC: Seth Boone MD Review of Systems ROS Status of ROS 10 or more systems reviewed and unremarkable except as noted in history and below [facility] Medical History Bipolar 2 disorder ?F31.81 - Bipolar II disorder (ICD-10) Social History Highest level of school completed/degree received: Bachelor's degree Meds Home Medications and Allergies Home Medications ?Medication ?Instructions ?Recorded ?Confirmed ?Type ciprofloxacin HCl 500 mg tablet 500 mg PO BID 7 days #14 tabs 08/14/23 08/16/23 Rx (Cipro) lamotrigine 150 mg tablet 150 mg PO .QHS 08/14/23 08/16/23 History ondansetron 4 mg disintegrating 4 mg PO DAILY PRN nausea and 08/14/23 08/16/23 Rx tablet vomiting #15 tabs oxycodone-acetaminophen 5 mg-325 1 tab PO Q6H #10 tabs 08/14/23 08/16/23 Rx mg tablet (Percocet) tamsulosin 0.4 mg capsule (Flomax) 0.4 mg PO DAILY #14 caps 06/25/24 06/27/24 Rx cariprazine 3 mg capsule (Vraylar) 3 mg PO .QHS 08/16/23 08/16/23 History hyoscyamine sulfate 0.125 mg 0.125 mg sublingual QID #20 tabs 08/16/23 Rx sublingual tablet sertraline 50 mg tablet 50 mg PO .QHS 08/16/23 08/16/23 History Allergies Allergy/AdvReac Type Severity Reaction Status Date / Time No Known Drug Allergies Allergy Verified 08/16/23 04:50 Exam Narrative Exam Narrative: She is resting comfortably in the bed. She is in no acute distress. Afebrile vital signs are stable. Abdomen is soft but tender in the right lower quadrant and tender in the right CVA. No masses are palpable. Constitutional Vital Signs, click to edit/add: Last Vital Signs Temp 98.1 F 08/16/23 20:46 Pulse 62 08/16/23 20:46 Resp 18 08/16/23 20:46 BP 116/76 08/16/23 20:46 Pulse Ox 95 08/16/23 20:58 O2 Del Method Room Air 08/16/23 20:58 Assessment and Plan Assessment and Plan (1) Ureteral stone with hydronephrosis: Assessment and Plan: This lady has a 6 mm distal right ureteral calculus causing ipsilateral hydronephrosis VERONICA, UTI and pain. She is admitted for pain management. She needs to get un obstructed.She is getting added on for surgery later today for cystoscopy right stent placement and possible ureteroscopic stone manipulation. (2) Kidney stone: Assessment and Plan: On her ultrasound she has bilateral nonobstructing renal stones. This suggest that she has a metabolic disorder causing her stones. Once she is stent free we then will need to do a full stone metabolic workup to figure out the etiology of her stone formation and help her with future stone prevention. (3) Urinary tract infection: Assessment and Plan: She seems to have a concomitant UTI from her stone. She is being managed with Cipro while in the hospital. (4) VERONICA (acute kidney injury): Assessment and Plan: Her obstructing stone has caused her creatinine to raise up to 1.2. This should normalize once she is stented. Over 30 minutes of clinical time was spent talking with the nursing staff, the patient and reviewing her chart and films. Thank you for letting me take part in her care.
--- NOTE | 2023-08-20 11:39 | CM.DCFOLLOWU ---
Person spoke with: patient How are you feeling? well How is your pain? limited Did you understand your discharge instructions? yes Do you have any questions about your discharge instructions? no Were you given any prescriptions at discharge? yes Were you able to get your prescriptions filled? yes Do you understand how to take your medications as ordered? yes Do you have any questions about your follow up appointment and do you plan to keep your follow up appointment? no questions, reviewed follow ups Is there anything else that you would like to discuss? no Questions/Comments/Concerns/Other: no
== END 2023-08-16 21:14 | disposition home or self-care (01) ==
LOC: ER 07:44 → MS 08:53
PROVIDERS: Emergency Medicine; Urology; Admitting Provider Family Medicine; Emergency Provider Emergency Medicine Emergency Medical Services; PCP Family Medicine; Visit Provider Family Medicine
PROC: (CPT 918; principal; 2023-08-16 16:15)
DX: N13.6 Pyonephrosis (principal); I10 Essential (primary) hypertension; N17.9 Acute kidney failure, unspecified; R79.89 Other specified abnormal findings of blood chemistry; F31.9 Bipolar disorder, unspecified; D72.829 Elevated white blood cell count, unspecified
CPT/HCPCS: 00918; 52320; 52356; 36415; 74018; 76000; 76770; 80053; 81001; 82365; 83605; 84703; 85025; 87040; 87086; 94667; 94668; 94761; 96365; 96367; 96372; 96375; 99285; 99999; G0378; J0696; J0744; J1170; J1885; J2250; J2371; J2405; J2704; J3010

== ENCOUNTER 2024-09-06 17:07 | Emergency (ER) | payer OTHER, SELFPAY ==
[2024-09-06 17:11] VITALS: BP 132/77; PULSE 115; TEMP 36.8; O2SAT 98; BMI 32.9
--- NOTE | 2024-09-06 17:23 | ED.ABDPAIN1 ---
HPI - Abdominal Pain General Chief Complaint: Abdominal Pain Stated Complaint: Kidney Stone Time Seen by Provider: 09/06/24 17:22 Source: patient Mode of arrival: walk-in Limitations: no limitations History of Present Illness HPI narrative: The patient is a 28-year-old female is coming to the ER with a right sided flank pain that started this morning, pain associate with nausea and vomiting. Pain on arrival is 10 out of 10 and the patient mentioned that she had a history of kidney stone before and she had to had a surgery for the There is no history of fever or chills and no other complaints Patient mentioned that she is actively in her menstruation period As well Related Data Home Medications ?Medication ?Instructions ?Recorded ?Confirmed lamotrigine 150 mg tablet 150 mg PO .QHS 08/14/23 08/16/23 cariprazine 3 mg capsule (Vraylar) 3 mg PO .QHS 08/16/23 08/16/23 sertraline 50 mg tablet 50 mg PO .QHS 08/16/23 08/16/23 Previous Rx's ?Medication ?Instructions ?Recorded ciprofloxacin HCl 500 mg tablet 500 mg PO BID 7 days #14 tabs 08/14/23 (Cipro) ondansetron 4 mg disintegrating 4 mg PO DAILY PRN nausea and 08/14/23 tablet vomiting #15 tabs oxycodone-acetaminophen 5 mg-325 1 tab PO Q6H #10 tabs 08/14/23 mg tablet (Percocet) tamsulosin 0.4 mg capsule (Flomax) 0.4 mg PO DAILY #14 caps 08/14/23 hyoscyamine sulfate 0.125 mg 0.125 mg sublingual QID #20 tabs 08/16/23 sublingual tablet Allergies Allergy/AdvReac Type Severity Reaction Status Date / Time No Known Drug Allergies Allergy Verified 09/06/24 17:10 Review of Systems ROS Status of ROS 10 or more systems reviewed and unremarkable except as noted in history and below PFSH PFSH Medical History Bipolar 2 disorder ?F31.81 - Bipolar II disorder (ICD-10) Social History Highest level of school completed/degree received: Bachelor's degree Little interest or pleasure in doing things: not at all Feeling down, depressed, or hopeless: not at all Exam Narrative Exam Narrative: Nurses notes and vital signs reviewed and patient is not hypoxic. General: Well-appearing and in distress due to pain Skin: Warm, dry, no pallor noted. No rash. Head: Normocephalic, atraumatic. Neck: Supple, non-tender. Respiratory: No accessory muscle use or respiratory distress. Lungs are clear to auscultation, no wheezing, rales or rhonchi Chest Wall: no tenderness Back: No midline thoracic or lumbar vertebral tenderness. Right CVA tenderness Musculoskeletal: normal ROM, no calf or popliteal tenderness, no lower extremity edema/swelling GI: Abdomen is soft, non-distended. Normal bowel sounds. No masses appreciated. No tenderness to palpation. No rebound, guarding, or rigidity noted. Neurological: A&O x4. No cranial nerve dysfunction observed. No truncal ataxia. Moves all extremities. Sensation intact. Psychiatric: Cooperative and interactive. Normal mood and affect. Constitutional Vital Signs, click to edit/add: Last Vital Signs Temp 98.3 F 09/06/24 17:11 Pulse 115 H 09/06/24 17:11 Resp 20 09/06/24 17:11 BP 132/77 09/06/24 17:11 Pulse Ox 98 09/06/24 17:11 O2 Del Method Room Air 09/06/24 17:11 Course Vital Signs Vital signs: Vital Signs Temperature 98.3 F 09/06/24 17:11 Pulse Rate 115 H 09/06/24 17:11 Respiratory Rate 20 09/06/24 17:11 Blood Pressure 132/77 09/06/24 17:11 Pulse Oximetry 98 09/06/24 17:11 Oxygen Delivery Method Room Air 09/06/24 17:11 Temperature 98.3 F 09/06/24 17:11 Pulse Rate 115 H 09/06/24 17:11 Respiratory Rate 20 09/06/24 17:11 Blood Pressure 132/77 09/06/24 17:11 Pulse Oximetry 98 09/06/24 17:11 Oxygen Delivery Method Room Air 09/06/24 17:11 MDM - Abdominal Pain MDM Narrative Medical decision making narrative: The patient was noted to be tachycardic on arrival she was started IV fluid in addition to Toradol and Zofran for pain and nausea The patient then had a white blood cell elevated of 13 and lactic acid was 2.6 the patient then was started on sepsis protocol coverage with fluid 30 cc/kg in addition to the patient also was covered after blood culture with ciprofloxacin for possible UTI The chemistry showed no acute pathology and the patient test was negative Especially with the patient presentation and possible kidney stone awaiting the results of the CT Lab Data Labs: Lab Results 09/06/24 09/06/24 Range/Units 17:35 18:00 WBC 13.2 H (4.0-11.0) 10^3/uL RBC 4.50 (4.20-5.40) 10^6/uL Hgb 11.9 L (12.0-16.0) g/dL Hct 36.2 (36.0-48.0) % MCV 80.4 L (81.0-99.0) fL MCH 26.4 L (26.7-34.0) pg MCHC 32.9 (29.9-35.2) g/dL RDW 14.8 (11.0-15.0) % Plt Count 569 H (150-450) 10^3/uL MPV 9.1 L (9.5-13.5) fL Neut % (Auto) 69.3 (43.0-75.0) % Lymph % (Auto) 21.7 (20.5-60.0) % [place] % (Auto) 5.9 (1.7-12.0) % Eos % (Auto) 2.6 (0.9-7.0) % Baso % (Auto) 0.3 (0.2-2.0) % Neut # (Auto) 9.1 H (1.4-6.5) 10^3/uL Lymph # (Auto) 2.9 (1.2-3.8) 10^3/uL [place] # (Auto) 0.8 (0.3-0.8) 10^3/uL Eos # (Auto) 0.3 (0.0-0.7) 10^3/uL Baso # (Auto) 0.0 (0.0-0.1) 10^3/uL Abs Immat Gran (auto) 0.03 (0.00-0.03) 10^3/uL Imm/Tot Granulo (auto) 0.2 (0.0-0.5) % Sodium 144 (136-145) mmol/L Potassium 3.7 (3.5-5.1) mmol/L Chloride 105 (98-107) mmol/L Carbon Dioxide 30.1 (21.0-32.0) mmol/L Anion Gap 12.6 BUN 12.0 (7.0-18.0) mg/dL Creatinine 1.02 (0.55-1.02) mg/dL Est GFR ( Amer) >60 (>=60 mL/min/1.73m^2) Est GFR (Non-Af Amer) >60 (>=60 mL/min/1.73m^2) BUN/Creatinine Ratio 11.8 Glucose 97 (74-106) mg/dL Lactate 2.6 H* (0.4-2.0) mmol/L Calcium 9.3 (8.5-10.1) mg/dL Total Bilirubin 0.1 L (0.2-1.0) mg/dL AST 15 (15-37) U/L ALT 37 (14-59) U/L Alkaline Phosphatase 127 H (46-116) U/L Total Protein 7.8 (6.4-8.2) g/dL Albumin 3.6 (3.4-5.0) g/dL Globulin 4.2 g/dL Albumin/Globulin Ratio 0.9 Serum HCG, Qual Negative (NEGATIVE) Urine Color Lt. yellow (YELLOW) Urine Clarity Clear (CLEAR) Urine pH 7.5 (5.0-9.0) Ur Specific [place] 1.015 (1.005-1.025) Urine Protein 30 A (NEG/TRACE) mg/dL Urine Glucose (UA) Negative (NEGATIVE) mg/dL Urine Ketones Negative (NEGATIVE) mg/dL Urine Occult Blood Large A (NEGATIVE) Urine Nitrite Negative (NEGATIVE) Urine Bilirubin Negative (NEGATIVE) Urine Urobilinogen 0.2 (0.2-1.0) EU/dL Ur Leukocyte Esterase Large A (NEGATIVE) Urine RBC 2-5 A (0-2) #/HPF Urine WBC 20-50 A (NONE SEEN) #/HPF Ur Squamous Epith Cells Few A (NONE/RARE) #/LPF Urine Crystals None seen (None Seen) #/HPF Urine Bacteria Moderate A (NONE SEEN) #/HPF Urine Casts None seen (NONE SEEN) #/LPF Urine Mucus Trace A (NONE SEEN) Ur Culture Indicated? Yes-[facility] [place] Discharge Plan Discharge Patient Disposition: Still a Patient
--- NOTE | 2024-09-06 17:39 | CT_ITS ---
The [address] [address] Patient Name: LEONA GOODSON MRN: [id number] date: 1995 Sex: F Assigned Patient Location: ED.MAIN Current Patient Location: ED.MAIN Accession/Order Number: [id number] Exam Date: 09/06/2024 18:45 Report Date: 09/06/2024 18:51 At the request of: KRISTINE DENG MD Procedure: CT abdomen pelvis wo con CT ABDOMEN AND PELVIS WITHOUT INTRAVENOUS CONTRAST: CLINICAL HISTORY: rt flank pain hx of kidney stones COMPARISON: Abdominal x-ray 08/16/2023, CT abdomen pelvis 08/14/2023 TECHNIQUE: Spiral images were obtained through the abdomen and pelvis without intravenous contrast. This CT exam was performed using one or more following dose reduction techniques: Automated exposure control, adjustment of the mA and/or kV according to patient size, or use of iterative reconstruction technique. FINDINGS: Lung Bases: [No focal airspace.] Organs:Right renal staghorn calculi up to 2.2 cm in size. Left-sided renal calculi measuring up to 6 mm in size. There is mild urothelial thickening involving the right proximal ureter and right collecting system. No definite distal ureteral calculi identified. Otherwise the liver, spleen, adrenals, pancreas unremarkable.[ GI: Mild retained stool throughout the colon without evidence of bowel obstruction. Appendix unremarkable.[ Pelvis:[Bladder collapsed. Slight heterogeneous appearance of the uterus. No definite adnexal mass.] Peritoneum/Retroperitoneum:No free air or free fluid. Small fat-containing umbilical hernia.[ Abd wall/Bones:No suspicious osseous lesion..[ CT/CT abdomen pelvis wo con IMPRESSION: Right sided staghorn calculi and slight thickening of the proximal collecting system and ureter with mild stranding fat stranding could be infectious or inflammatory or reactive due to the staghorn calculi.. Recently passed right-sided ureteral calculus could be considered in appropriate clinical setting. Impression dictated by: Wayne Wylie M.D. 09/06/2024 6:51 PM Dictation Location: [place] [address] Electronically authenticated by: [id number] Y Date: 09/06/2024 18:51
[2024-09-06] MEDS: KETOROLAC TROMETHAMINE 30 MG/ML VIAL IVP (17:47)
[2024-09-06] MEDS: 0.9 % SODIUM CHLORIDE 1,000 ML 1000 ML IV (17:48)
[2024-09-06 17:51] LABS: Hematocrit 36.2 % (36.0-48.0); Hemoglobin 11.9 g/dL (12.0-16.0); Immature Granulocytes Abs Auto 0.03 10^3/uL (0.00-0.03); Immature Granulocytes Pct Auto 0.2 % (0.0-0.5); Lymphocytes Absolute Auto 2.9 10^3/uL (1.2-3.8); Mean Corpuscular HGB Conc 32.9 g/dL (29.9-35.2); Mean Corpuscular Hemoglobin 26.4 pg (26.7-34.0); Mean Corpuscular Volume 80.4 fL (81.0-99.0); Platelet Count 569 10^3/uL (150-450); Red Blood Count 4.50 10^6/uL (4.20-5.40); White Blood Count 13.2 10^3/uL (4.0-11.0)
[2024-09-06 18:06] LABS: Alanine Aminotransferase 37 U/L (14-59); Albumin Globulin Ratio 0.9; Albumin Level 3.6 g/dL (3.4-5.0); Alkaline Phosphatase 127 U/L (46-116); Anion Gap 12.6; Aspartate Amino Transferase 15 U/L (15-37); Blood Urea Nitrogen 12.0 mg/dL (7.0-18.0); Calcium 9.3 mg/dL (8.5-10.1); Carbon Dioxide 30.1 mmol/L (21.0-32.0); Chloride 105 mmol/L (98-107); Estimated GFR (African America >60 (>=60 mL/min/1.73m^2); Estimated GFR (Non-African Ame >60 (>=60 mL/min/1.73m^2); Globulin 4.2 g/dL; Glucose 97 mg/dL (74-106); Potassium 3.7 mmol/L (3.5-5.1); Sodium 144 mmol/L (136-145); Total Protein 7.8 g/dL (6.4-8.2)
[2024-09-06 18:09] LABS: Glucose Urine UA NEGATIVE (NEGATIVE)
[2024-09-06 18:14] LABS: Lactate/Lactic Acid 2.6 mmol/L (0.4-2.0)
[2024-09-06 18:20] LABS: Cast Seen? NONE SEEN #/LPF (NONE SEEN); Crystals Seen? None Seen #/HPF (None Seen); Urine Culture Indicated YES-FRMC
[2024-09-06 19:15] VITALS: BP 117/82; PULSE 93; O2SAT 99
[2024-09-06] MEDS: 0.9 % SODIUM CHLORIDE 1,503 ML 501 ML IV (19:15)
[2024-09-06] MEDS: CIPROFLOXACIN IN 5 % DEXTROSE 400 MG/200 ML PREMIX 200 MG IV (19:30)
[2024-09-06] MEDS: HYDROCODONE/ACET 5-325 MG TABLET 1 TAB PO ×2 (20:06→20:22)
== END 2024-09-06 20:26 | disposition home or self-care (01) ==
PROVIDERS: Emergency Medicine; Emergency Provider Emergency Medicine; PCP Family Medicine
DX: N20.0 Calculus of kidney (principal); N39.0 Urinary tract infection, site not specified; D72.829 Elevated white blood cell count, unspecified; Z87.442 Personal history of urinary calculi
CPT/HCPCS: 36415; 74176; 80053; 81001; 83605; 84703; 85025; 87040; 87086; 87088; 87186; 96361; 96365; 96375; 99285; J0744; J1885; J2405

== ENCOUNTER 2024-09-09 12:33 | Outpatient (OUT) | payer OTHER, SELFPAY ==
--- OUTSIDE RECORDS SUMMARY | 2024-09-08 23:59 | XMS_ITS | Continuity of Care Document ---
Author Organization [facility] Address [address] [place] [address] [place] [address] Care Team Providers Care Doctor Of Dental Medicine Name Role Phone THEO ACOSTA Primary Care Physician Encounter FT_AMBFIN [id number] Date(s): 09/08/24 - 09/08/24 [facility] [address] [place] [address] [place] [address]- Encounter Diagnosis Acute cystitis(Discharge Diagnosis) - 09/08/24 Right flank pain(Discharge Diagnosis) - 09/08/24 Kidney stones(Discharge Diagnosis) - 09/08/24 Discharge Disposition: Home (Routine DC) Attending Physician: Jesse SOUZA MD Encounter Type: Clinic Allergies, Adverse Reactions, Alerts Substance Criticality Severity Reaction Reaction Severity Status NuvaRing High criticality Severe Depression Ac tive Immunizations Given and Recorded Vaccine Date Status Refusal Reason influenza virus vaccine, inactivated 03/06/23 Ron rded influenza virus vaccine, inactivated 12/22/22 Ron rded influenza virus vaccine, inactivated 11/25/19 Ron rded influenza virus vaccine, inactivated 01/24/19 Ron rded SARS-CoV-2 (COVID-19) mRNA BNT-162b2 vax 01/06/21 Recorded SARS-CoV-2 (COVID-19) mRNA BNT-162b2 vax 12/08/20 Recorded measles/mumps/rubella virus vaccine 03/06/19 Recor ded measles/mumps/rubella virus vaccine 08/16/01 Recor ded measles/mumps/rubella virus vaccine 04/06/97 Recor ded diphtheria/pertussis, acel/tetanus adult 01/24/19 Recorded diphtheria/pertussis, acel/tetanus adult 10/09/17 Recorded poliovirus vaccine, inactivated 04/25/01 Recorded poliovirus vaccine, inactivated 01/15/98 Recorded poliovirus vaccine, inactivated 05/01/96 Recorded poliovirus vaccine, inactivated 02/29/96 Recorded DTaP, unspecified formulation 04/25/01 Recorded DTaP, unspecified formulation 01/15/98 Recorded DTaP, unspecified formulation 07/01/96 Recorded DTaP, unspecified formulation 05/01/96 Recorded DTaP, unspecified formulation 02/29/96 Recorded varicella virus vaccine 07/27/00 Recorded hepatitis B pediatric vaccine 07/01/96 Recorded hepatitis B pediatric vaccine 02/29/96 Recorded hepatitis B pediatric vaccine 95 Recorded Medications acetaminophen-hydrocodone 325 mg-5 mg oral tablet 1 tab(s), Refill(s) 0 Start Date: 09/08/24 Status: Ordered Repeat number: 1 ciprofloxacin 500 mg Tab 14 EA, 0 Refill(s), TAKE 1 TABLET BY MOUTH TWICE DAILY FOR 7 DAYS, Refills(s) 0 Start Date: 09/08/24 Status: Ordered Repeat number: 1 ketorolac 10 mg Tab 10 mg = 1 tab(s), Oral, q4hr, PRN for pain, # 60 tab(s), Refills(s) 0 Start Date: 09/08/24 Status: Ordered Quantity: 60.0 Unit: tab(s) Repeat number: 1 lamotrigine 150 mg Tab mg tab(s), Oral, BID, Refills(s) 0 Start Date: 12/31/19 Status: Ordered Repeat number: 1 Vistaril 25 mg Cap mg cap(s), Oral, QID, Refills(s) 0 Start Date: 12/31/19 Status: Ordered Repeat number: 1 Vraylar 3 mg oral capsule mg cap(s), Oral, Daily, Refills(s) 0 Start Date: 12/31/19 Status: Ordered Repeat number: 1 Zoloft 50 mg Tab mg tab(s), Oral, Daily, Refills(s) 0 Start Date: 12/31/19 Status: Ordered Repeat number: 1 Problem List Condition Confirmation Course Effective Dates Status Health St atus Informant Asymptomatic bacteriuria in 1 Confirmed Active Chronic cystitis Confirmed Active Dysuria Confirmed Active Hyperemesis gravidarum 2 Confirmed Active Kidney stones Confirmed Active Nausea and vomiting 3 Confirmed Active Right flank pain Confirmed Active Urinary tract infectious disease 4 Confirmed Active 1Outside Source Comment: Problem List clean-up per request of Phys. EHR Cmte 2Outside Source Comment: Problem List clean-up per request of Phys. EHR Cmte 3Outside Source Comment: Problem List clean-up per request of Phys. EHR Cmte 4Outside Source Comment: Problem List clean-up per request of Phys. EHR Cmte Procedures Procedure Date Related Diagnosis Body Site Status Cysto/UD Completed Social History Social History Type Response Smoking Status Never (less than 100 in lifetime);Never entered on: 09/08/24 Sex Female Sex Representation Female (finding) Hospital Discharge Instructions Patient Education 09/08/2024 18:01:10 Laser Therapy for Kidney Stones, Care After Laser Therapy for Kidney Stones, Care After After laser therapy for kidney stones, it is common to have: ??? Pain. ??? A burning feeling when you pee (urinate). ??? Small amounts of blood in your pee (urine). ??? A need to pee a lot. ??? Parts of the kidney stone in your pee. ??? Mild discomfort in your back when you pee. You may have this if you had a small mesh tube (stent) placed during the procedure. Follow these instructions at home: Medicines ??? Take ityj-wgx-mkwpkkh and prescription medicines only as told by your health care provider. ??? If you were prescribed antibiotics, take them as told by your provider. Do not stop using the antibiotic even if you start to feel better. ??? Ask your provider if the medicine prescribed to you: ??? Requires you to avoid driving or using machinery. ??? Can cause constipation. You may need to take these actions to prevent or treat constipation: ??? Drink enough fluid to keep your pee pale yellow. ??? Take skom-bni-vfcnpau or prescription medicines. ??? Eat foods that are high in fiber, such as beans, whole grains, and fresh fruits and vegetables. ??? Limit foods that are high in fat and processed sugars, such as fried or sweet foods. Activity ??? If you were given a sedative during the procedure, it can affect you for several hours. Do not drive or operate machinery until your provider says that it is safe. ??? Return to your normal activities as told by your provider. Ask your provider what activities are safe for you. General instructions ??? Your provider may recommend that you drink a lot of water for a few hours after your procedure.If you have heart or kidney disease, ask your provider how much you should drink. ??? You may be asked to strain your pee to collect any stone pieces that you pass. Your provider may have these pieces tested. ??? Do not take baths, swim, or use a hot tub until your provider approves. Ask your provider if you may take warm baths to soothe the burning. ??? Keep all follow-up visits. If you have a stent, you will need to go back to your provider to have it removed. Your provider may give you more instructions. Make sure you know what you can and cannot do. Contact a health care provider if: ??? You have pain or a burning feeling that lasts for more than 2 days. ??? You feel nauseous. ??? You vomit more and more often. ??? You have trouble peeing. ??? You have pain that gets worse or does not get better with medicine. ??? You have a fever or shaking chills. Get help right away if: ??? You cannot pee, even when your bladder feels full. ??? You faint. ??? You have chest pain, shortness of breath, or cough up blood. ??? You have: ??? Bright red blood or blood clots in your pee. ??? Severe pain or discomfort. ??? Pain in your abdomen. ??? Swelling in your legs. These symptoms may be an emergency. Get help right away. Call 911. ??? Do not wait to see if the symptoms will go away. ??? Do not drive yourself to the hospital. This information is not intended to replace advice given to you by your health care provider. Make sure you discuss any questions you have with your health care provider. Document Revised: 10/06/2022 Document Reviewed: 10/06/2022 [employer] Patient Education ?? 2023 [employer] Shelf. 09/08/2024 18:01:10 Laser Therapy for Kidney Stones Laser Therapy for Kidney Stones Laser therapy for kidney stones is a procedure to break up rock-like masses that form inside the kidneys (kidney stones). It is done using a device that beams a strong light (laser) on the kidney stones. This breaks the stones up into small pieces. These small pieces may leave your body when you pee (urinate) or may be taken out during the procedure. You may need laser therapy if you have kidney stones that are painful or that are stopping you frombeing able to pee. Tell a health care provider about: ??? Any allergies you have. ??? All medicines you are taking, including vitamins, herbs, eye drops, creams, and rqvj-alu-mvkvagi medicines. ??? Any problems you or family members have had with anesthesia. ??? Any bleeding problems you have. ??? Any surgeries you have had. ??? Any medical conditions you have. ??? Whether you are or may be . What are the risks? Your health care provider will talk with you about risks. These may include: ??? Infection. ??? Bleeding. ??? Allergic reactions to medicines. ??? Damage to: ??? The part of your body that drains pee (urine) from the bladder (urethra). ??? The bladder. ??? The tube that connects the bladder to the kidneys (ureter). ??? Urinary tract infection (UTI). ??? Urethral stricture. This is when the urethra is narrowed by scarring. ??? Trouble peeing. ??? Blockage of the kidney. This may be caused by a piece of kidney stone. What happens before the procedure? When to stop eating and drinking Follow instructions from your provider about what you may eat and drink. These may include: ??? 8 hours before the procedure ??? Stop eating most foods. Do not eat meat, fried foods, or fatty foods. ??? Eat only light foods, such as toast or crackers. ??? All liquids are okay except energy drinks and alcohol. ??? 6 hours before the procedure ??? Stop eating. ??? Drink only clear liquids, such as water, clear fruit juice, black coffee, plain tea, and sportsdrinks. ??? Do not drink energy drinks or alcohol. ??? 2 hours before the procedure ??? Stop drinking all liquids. ??? You may be allowed to take medicines with small sips of water. ??? If you do not follow your provider's instructions, your procedure may be delayed or canceled. Medicines ??? Ask your provider about: ??? Changing or stopping your regular medicines. These include any diabetes medicines or blood thinners you take. ??? Taking medicines such as aspirin and ibuprofen. These medicines can thin your blood. Do not take them unless your provider tells you to. ??? Taking mgco-svr-pbhdopg medicines, vitamins, herbs, and supplements. Tests ??? You may have a physical exam before the procedure. You may also have tests done. These may include: ??? Imaging tests. ??? Blood or pee tests. Surgery safety ??? Ask your provider: ??? How your surgery site will be marked. ??? What steps will be taken to help prevent infection. These steps may include: ??? Removing hair at the surgery site. ??? Washing skin with a soap that kills germs. ??? Taking antibiotics. General instructions ??? Do not use any products that contain nicotine or tobacco for at least 4 weeks before the procedure. These products include cigarettes, chewing tobacco, and vaping devices, such as e-cigarettes. If you need help quitting, ask your provider. ??? If you will be going home right after the procedure, plan to have a responsible adult: ??? Take you home from the hospital or clinic. You will not be allowed to drive. ??? Care for you for the time you are told. What happens during the procedure? An IV will be inserted into one of your veins. ??? You will be given: ??? A sedative. This helps you relax. ??? Anesthesia. This keeps you from feeling pain. It will make you fall asleep for surgery. ??? A tool with a camera on the end (ureteroscope) will be put into your urethra. It will be moved through your bladder to your kidney. It will send pictures to a screen in the operating room. This will show what parts of your kidney need to be treated. ??? A tube will be put through the ureteroscope. It will be moved into your kidney. ??? The laser device will be put into your kidney through the tube. The laser will be used to breakup the kidney stones. ??? A tool with a tiny wire basket may be put through the tube into your kidney. This can help remove the small pieces of the kidney stone. ??? A small mesh tube (stent) may be placed to allow your kidney to drain. ??? The tube and ureteroscope will be taken out at the end of the surgery. The procedure may vary among providers and hospitals. What happens after the procedure? Your blood pressure, heart rate, breathing rate, and blood oxygen level will be monitored untilyou leave the hospital or clinic. ??? If you had a stent placed, it may have a string that will be secured to your skin. This helps your provider remove the stent. ??? You may be given a strainer to collect any stone pieces that you pass in your pee. Your provider may have these tested. This information is not intended to replace advice given to you by your health care provider. Make sure you discuss any questions you have with your health care provider. Document Revised: 10/06/2022 Document Reviewed: 10/06/2022 [employer] Patient Education ?? 2023 the Shelf. Follow Up Care 09/08/2024 14:33:27 With:HARLEY MACKAY, Jesse Robertson, URL Address: [facility] [address], [place] [address]- When: Unknown Patient Care team information Care Team Personnel Name: THEO ACOSTA DO Member Role: Primary Care Physician Address: [address] [place] [address]- Telecom: Care Team Related Persons Name: NATAN CHASE Insurance Providers Guarantor name: Health Plan Information #: 1 Payer: NA Payer Identifier: [id number] Member Number: [id number] Group Number: [id number] Subscriber Identifier: [id number] Relationship to Subscriber: Self Coverage Type: PRIVATE HEALTH INSURANCE Coverage Verification Date: NA Telecom: NA Address: NA
--- OUTSIDE RECORDS SUMMARY | 2024-09-09 12:37 | XMS_ITS | Clinical Summary ---
Author Organization [facility] Address [address] [place] [address] Care Team Providers Care Certified Medical Assistant Name Role Phone ConsueloAlexandrebliane Penelope Collins APRN-BUSINESS SUPPORT PROFESSIONAL Unavailable Blane Beavers DO Primary Care Provider Allergies Active Allergy Reactions Criticality Noted Date Comments Etonogestrel-Ethinyl Estradiol Other 07/01 Severe depression Medications SEMAGLUTIDE PO Take by mouth Active Cariprazine HCl (Vraylar) 3 MG capsuleIndicati ons:Bipolar 2 disorder (HCC) Take 1 capsule by mouth Daily 90 capsule 05/29/2024 Active sertraline (Zoloft) 50 MG tabletIndicatio ns:Bipolar 2 disorder (HCC) Take 1 tablet (50 mg) by mouth Daily 90 tablet 05/29/2024 Active lamoTRIgine (LaMICtal) 150 MG tabletIndicatio ns:Bipolar 2 disorder (HCC) Take 1 tablet (150 mg) by mouth Daily 90 tablet 05/29/2024 Active Active Problems Problem Noted Date Diagnosed Date Abnormal cytological finding s in specimens from other organs, systems and tissues 02/08/2023 Cannabis abuse 02/08/2023 Cervical high risk HPV (human papillomavirus) te st positive 02/08/2023 Depression 02/08/2023 Disorder of female genital organ 02/08/2023 Menstrual disorder 02/08/2023 Bipolar 2 disorder 07/01/2022 Anxiety 07/01/2022 Encounters Date Type Department Care Team Description 09/09/2024 Abstract [facility] [address] [place] [address] Blane Beavers DO from Last 3 Months Immunizations Immunization Administration Dates Next Due DTaP, Unspecified 04/25/2001, 8,07/01/1996,1996,02/29/1996 Hep B, Adolescent or Pediatric 07/01/1996,1996,1995 IPV 04/25/2001, 8,05/01/1996,1996 Influenza, injectable, MDCK, preservative free, quadrivalent 01/24/2019 Influenza, injectable, quadr ivalent, preservative free 12/22/2022,11/25/2019 MMR 03/06/2019,08/16/2001,04/06/1997 PPD Test 10/24/2022, 0,05/02/2019,2019 Tdap 01/24/2019,10/09/2017,10/23/2014 Varicella 07/27/2000 Family History Medical History Relation Name Comments Hypertension Father Testicular cancer Father Diabetes Mother Depression Mother's Brother DJ Schizophrenia Mother's Brother DJ Crohn's disease Mother's Sister Lung cancer Paternal Grandfather Relation Name Status Comments Brother 1 Daughter 1 Father Alive Mother Alive Mother's Brother DJ Mother's Sister Paternal Grandfather Son 2 Social History Tobacco Use Types Packs/Day Years Used Date Smoking Tobacco: Never Smokeless Tobacco: Never Tobacco Cessation:Counseling Given: Not Answered Alcohol Use Standard Drinks/Week Comments Not Currently 0 (1 standard drink = 0.6 oz pure alcohol) 80-200 mg of caffiene, energy drinks Humiliation, Afraid, Rape, and Kick questionnair e Answer Date Recorded Within the last year, have y ou been afraid of your partner or ex-partner? No 02/09/2023 Within the last year, have y ou been humiliated or emotionally abused in other ways by your partner or ex-partner? No Within the last year, have y ou been kicked, hit, slapped, or otherwise physically hurt by your partner or ex-partner? No 02/09/2023 Within the last year, have y ou been raped or forced to have any kind of sexual activity by your partner or ex-partner? No 02/09/2023 Social Connection and Isolat ion Panel [NHANES] Answer Date Recorded In a typical week, how many times do you talk on the phone with family, friends, or neighbors? More than three times a week 02/09/2023 How often do you get togethe r with friends or relatives? Once a week 02/09/2023 How often do you attend chur or adventism services? Never 02/09/2023 Do you belong to any clubs o r organizations such as taoist groups, unions, fraternal or athletic groups, or school groups? No 02/09/2023 How often do you attend meet ings of the clubs or organizations you belong to? Never 02/09/2023 Are you , , di vorced, , never , or living with a partner? Living with partner 02/09/2023 AUDIT-C Answer Date Recorded Q1: How often do you have a drink containing alc ohol? Monthly or less 02/09/2023 Q2: How many drinks containi ng alcohol do you have on a typical day when you are drinking? 1 or 2 02/09/2023 Q3: How often do you have si x or more drinks on one occasion? Never 02/09/2023 Overall Financial Resource Strain (CARDIA) Answe r Date Recorded How hard is it for you to pa y for the very basics like food, housing, medical care, and heating? Hard 02/09/2023 PHQ-2 Answer Date Recorded Patient Health Questionnaire-2 Score 1 12/17/2023 [facility] of Occupat ional Health - Occupational Stress Questionnaire Answer Date Recorded Do you feel stress - tense, restless, nervous, or anxious, or unable to sleep at night because your mind is troubled all the time - these days? Not at all 02/09/2023 Exercise Vital Sign Answer Date Recorde d On average, how many days pe r week do you engage in moderate to strenuous exercise (like a brisk walk)? 0 days 02/09/2023 On average, how many minutes do you engage in exercise at this level? 0 min 02/09/2023 Hunger Vital Sign Answer Date Recorded Within the past 12 months, y ou worried that your food would run out before you got the money to buy more. Patient declined Within the past 12 months, t he food you bought just didn't last and you didn't have money to get more. Patient declined PRAPARE - Transportation Answer Date Re corded In the past 12 months, has l ack of transportation kept you from medical appointments or from getting medications? No 01/20 In the past 12 months, has l ack of transportation kept you from meetings, work, or from getting things needed for daily living? No 02/09/2023 Housing Stability Vital Sign Answer Bhavin e Recorded In the last 12 months, was t here a time when you were not able to pay the mortgage or rent on time? Yes 02/09/2023 In the last 12 months, how many places have you lived? 1 02/09/2023 In the last 12 months, was t here a time when you did not have a steady place to sleep or slept in a fdc (including now)? No 02/09/2023 Education Answer Date Recorded What is the highest level of school you have completed or the highest degree you have received? Master's degree (e.g., MA, MS, Jennifer, MEd, RESEARCH INTERVIEWER, NILAM) 03/19/2023 Comments Unknown Sex and Gender Information Value Date Recorded Sex Assigned at Not on file Legal Sex Female 6:35 PM EDT Gender Identity Not on file Sexual Orientation Not on file Occupation Industry Job Start Date Job End Date Not on file Not on file Not on file Not on file Last Filed Vital Signs Vital Sign Reading Time Taken Comments Blood Pressure 112/76 05/29/2024 11:20 AM EDT Pulse 101 05/29/2024 11:20 AM EDT Temperature 36.3 C (97.4 F) 04/08/2024 9:02 AM EST Respiratory Rate - - Oxygen Saturation 98% 04/08/2024 9:02 AM EST Inhaled Oxygen Concentration - - Weight 86.2 kg (190 lb) 05/29/2024 11:20 AM EDT Height 157.5 cm (5' 2 ) 04/08/2024 9:02 AM EST Body Mass Index 34.75 04/08/2024 9:02 AM EST Plan of Treatment Upcoming Encounters Date Type Department Care Team (Late st Contact Info) Description 09/19/2024 10:00 AM EDT Office Visit [facility] [address] [place] [address] Penelope Walker, CLINICAL ADVISOR-BUSINESS SUPPORT PROFESSIONAL 112 [facility] 160 [place] [address] Health Maintenance Due Date Last Done Comments Influenza Vaccine (#1) 2024 4, 12/22/2022, 11/25/2019, Additional history exists Insurance [facility] Care Teams Certified Medical Assistant Relationship Specialty Start Date End Date Blane Beavers DO [address] [place] [address] PCP - General Family Medicine 02/09/23 Penelope Walker, CLINICAL ADVISOR-BUSINESS SUPPORT PROFESSIONAL [address] [facility] 160 [place] [address] Nurse Practitioner Behavioral Health 07/28/22
--- OUTSIDE RECORDS SUMMARY | 2024-09-09 12:37 | XMS_ITS | Encounter Summary ---
Author Organization [facility] Address [address] [place] [address] Care Team Providers Care Business Manager Name Role Phone Penelope Walker CHIEF SALES OFFICER-ORACLE FINANCIALS DEVELOPER Unavailable Blane Beavers DO Primary Care Provider [phone]- [phone] Penelope Walker CHIEF SALES OFFICER-ORACLE FINANCIALS DEVELOPER Unavailable Encounter Details Date Type Department Care Team (Late st Contact Info) Description 08/17/2023 Abstract [facility] [address] [facility] 230 [place] [phone] Blane Beavers DO [address] [facility] 230 [place], [place] [id number] Social History Tobacco Use Types Packs/Day Years Used Date Smoking Tobacco: Never Smokeless Tobacco: Never Alcohol Use Standard Drinks/Week Comments Yes 0 (1 standard drink = 0.6 oz pure alcohol) 600 mg of caffiene, energy drinks Humiliation, Afraid, [...] 02/09/2023 How often do you attend chur Job[employer]ore[employer] or sabianist services? Never 02/09/2023 Do you belong to any clubs o r organizations such as caodaism groups, unions, fraternal or athletic groups, or [...] Answer Date Recorded Patient Health Questionnaire-2 Score 0 04/13/2023 [facility] of Occupat ional Health - Occupational Stress [...] place to sleep or slept in a senior care (including now)? No 02/09/2023 Education Answer Date Recorded What is the highest level of school you have completed or the highest degree you have received? 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 [address] [place] [address] Penelope Walker, CHIEF SALES OFFICER-ORACLE FINANCIALS DEVELOPER [address] [place] [address] documented as of this encounter Visit Diagnoses Not on filedocumented in this encounter Care Teams Business Manager Relationship Specialty Start Date End Date Blane Beavers DO [address] [facility] 230 [place] [address] PCP - General Family Medicine 02/09/23 Penelope Walker, CHIEF SALES OFFICER-ORACLE FINANCIALS DEVELOPER 112 [facility] 160 [place] [address] [facility] 02/20/24 Penelope Walker, CHIEF SALES OFFICER-ORACLE FINANCIALS DEVELOPER [address] [address] Nurse Practitioner Behavioral Health 07/28/22 documented as of this encounter
--- OUTSIDE RECORDS SUMMARY | 2024-09-09 12:37 | XMS_ITS | Encounter Summary ---
Author Organization [facility] Address [address] [place] [address] Care Team Providers Care Chain Sales Representative Name Role Phone Penelope Walker SURVEY RESEARCH ASSOCIATE-ORTHODONTIST Unavailable Blane Beavers DO Primary Care Provider [phone] Encounter Details Date Type Department Care Team (Late st Contact Info) Description 09/09/2024 Abstract [facility] [address] [facility] [address] [place] [phone] Blane Beavers DO [address] [facility] [address] [place] [address] Social History Tobacco Use Types Packs/Day Years Used Date Smoking Tobacco: Never Smokeless Tobacco: Never Alcohol Use Standard Drinks/Week Comments Not Currently [...] How often do you attend chur or pentecostalism services? Never 02/09/2023 Do you belong to any clubs o r organizations such as confucianist groups, unions, fraternal or athletic groups, or [...] Recorded Patient Health Questionnaire-2 Score 1 12/17/2023 [facility] of Occupat ional Health - [...] place to sleep or slept in a intermediate (including now)? No 02/09/2023 Education Answer Date Recorded What is the highest level of school you have completed or the highest degree you have received? Master's degree (e.g., MA, MS, Jennifer, MEd, METER/RELAY TECHNICIAN, NILAM) 03/19/2023 Comments Unknown Sex and Gender Information Value Date Recorded Sex Assigned at Not on file Legal Sex Female 6:35 PM EDT Gender Identity Not on file Sexual Orientation Not on file Occupation Industry Job Start Date Job End Date Not on file Not on file Not on file Not on file documented as of this encounter Plan of Treatment Upcoming Encounters Date Type Department Care Team (Late st Contact Info) Description 09/19/2024 10:00 AM EDT Office Visit [facility] [address] [place] [address] Penelope Walker, SURVEY RESEARCH ASSOCIATE-ORTHODONTIST [address] [facility] 160 [place] [address] documented as of this encounter Visit Diagnoses Not on filedocumented in this encounter Care Teams Chain Sales Representative Relationship Specialty Start Date End Date Blane Beavers DO [address] [facility] [address] [place] [address] PCP - General Family Medicine 02/09/23 Penelope Walker, SURVEY RESEARCH ASSOCIATE-ORTHODONTIST [address] [facility] 160 [place] [address] Nurse Practitioner Behavioral Health 07/28/22 documented as of this encounter
--- OUTSIDE RECORDS SUMMARY | 2024-09-09 12:37 | XMS_ITS | Encounter Summary ---
Author Organization [facility] Address [address] [place] [address] Care Team Providers Care Crts Name Role Phone Penelope Walker FITNESS MANAGEMENT DIRECTOR-SHOE SALESMAN Unavailable Blane Beavers DO Primary Care Provider [phone] Penelope Walker FITNESS MANAGEMENT DIRECTOR-SHOE SALESMAN Unavailable Encounter Details Date Type Department Care Team (Late st Contact Info) Description 08/17/2023 Abstract [facility] [address] [facility] 230 [place] [phone] Blane Beavers DO [address] [facility] 230 [place], [place] [address] Social History Tobacco Use Types Packs/Day Years [...] 02/09/2023 How often do you attend chur [employer] or synagogue services? Never 02/09/2023 Do you belong to any clubs o r organizations such as sabianism groups, unions, fraternal or athletic groups, or [...] Recorded Patient Health Questionnaire-2 Score 0 04/13/2023 [facility] of Occupat ional Health - [...] to sleep or slept in a senior living (including now)? No 02/09/2023 Education Answer Date Recorded What is the highest level of school you have completed or the highest degree you have received? 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 on file Not on nidia e Not on file documented as of this encounter Plan of Treatment Upcoming Encounters Date Type Department Care Team (Late st Contact Info) Description 09/19/2024 10:00 AM EDT Office Visit [facility] [address] [place] [address] Penelope Walker, FITNESS MANAGEMENT DIRECTOR-SHOE SALESMAN [address] [place] [address] documented as of this encounter Visit Diagnoses Not on filedocumented in this encounter Care Teams Crts Relationship Specialty Start Date End Date Blane Beavers DO [address] [facility] 230 [place] [address] PCP - General Family Medicine 02/09/23 Penelope Walker, FITNESS MANAGEMENT DIRECTOR-SHOE SALESMAN 112 [facility] 160 [place] [address] [facility] 02/20/24 Penelope Walker, FITNESS MANAGEMENT DIRECTOR-SHOE SALESMAN [address] [address] Nurse Practitioner Behavioral Health 07/28/22 documented as of this encounter
--- OUTSIDE RECORDS SUMMARY | 2024-09-09 12:37 | XMS_ITS | Continuity of Care Document ---
Author Organization Replaced By [facility] Address [address] [place] [address] Social History Not on File Plan of Treatment Not on file
--- OUTSIDE RECORDS SUMMARY | 2024-09-09 12:38 | XMS_ITS | Encounter Summary ---
Author Organization [facility] Address [address] [place] [address] Care Team Providers Care Newspaper Deliverer Name Role Phone Penelope Walker HANDS ASSEMBLER-BRANCH LENDING MANAGER Unavailable Blane Beavers DO Primary Care Provider [phone]- [phone] Peenlope Walker HANDS ASSEMBLER-BRANCH LENDING MANAGER Unavailable Encounter Details Date Type Department Care Team (Late st Contact Info) Description 08/17/2023 Abstract [facility] [address] [facility] 230 [place] [phone] Blane Beavers DO [address] [facility] 230 [place], [place] [address] Social History Tobacco Use Types Packs/Day Years [...] 02/09/2023 How often do you attend chur Tamr or evangelical services? Never 02/09/2023 Do you belong to any clubs o r organizations such as jain groups, unions, fraternal or athletic groups, or [...] Recorded Patient Health Questionnaire-2 Score 0 04/13/2023 [facility] of Occupat ional Health - Occupational [...] place to sleep or slept in a residential (including now)? No 02/09/2023 Education Answer Date Recorded What is the highest level of school you have completed or the highest degree you have received? 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 on file Not on nidia e Not on file documented as of this encounter Plan of Treatment Upcoming Encounters Date Type Department Care Team (Late st Contact Info) Description 09/19/2024 10:00 AM EDT Office Visit [facility] [address] [place] [address] Penelope Walker, HANDS ASSEMBLER-BRANCH LENDING MANAGER [address] [place] [address] documented as of this encounter Visit Diagnoses Not on filedocumented in this encounter Care Teams Newspaper Deliverer Relationship Specialty Start Date End Date Blane Beavers DO [address] [facility] 230 [place] [address] PCP - General Family Medicine 02/09/23 Penelope Walker, HANDS ASSEMBLER-BRANCH LENDING MANAGER 112 [facility] 160 [place] [address] [facility] 02/20/24 Penelope Walker, HANDS ASSEMBLER-BRANCH LENDING MANAGER [address] [address] Nurse Practitioner Behavioral Health 07/28/22 documented as of this encounter
--- OUTSIDE RECORDS SUMMARY | 2024-09-09 12:38 | XMS_ITS | Encounter Summary ---
Author Organization [facility] Address [address] [place] [address] Care Team Providers Care Relief Charge Nurse Name Role Phone Penelope Walker FEATHER MAKER-INFRASTRUCTURE MANAGER Unavailable Blane Beavers DO Primary Care Provider [phone]- [phone] Penelope Walker FEATHER MAKER-INFRASTRUCTURE MANAGER Unavailable Encounter Details Date Type Department Care Team (Late st Contact Info) Description 08/17/2023 Abstract [facility] [address] [facility] 230 [place] [phone] Blane Beavers DO [address] [facility] 230 [place], [place] [id number] Social History Tobacco Use Types Packs/Day Years [...] 02/09/2023 How often do you attend chur [employer] or worship services? Never 02/09/2023 Do you belong to any clubs o r organizations such as judaism groups, unions, fraternal or athletic groups, or [...] Recorded Patient Health Questionnaire-2 Score 0 04/13/2023 [facility] of Occupat ional Health - Occupational Stress [...] place to sleep or slept in a correction (including now)? No 02/09/2023 Education Answer Date Recorded What is the highest level of school you have completed or the highest degree you have received? 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 Not on nidia e Not on file documented as of this encounter Plan of Treatment Upcoming Encounters Date Type Department Care Team (Late st Contact Info) Description 09/19/2024 10:00 AM EDT Office Visit [facility] [address] [place] [address] Penelope Walker, FEATHER MAKER-INFRASTRUCTURE MANAGER [address] [place] [address] documented as of this encounter Visit Diagnoses Not on filedocumented in this encounter Care Teams Relief Charge Nurse Relationship Specialty Start Date End Date Blane Beavers DO [address] [facility] 230 [place] [address] PCP - General Family Medicine 02/09/23 Penelope Walker, FEATHER MAKER-INFRASTRUCTURE MANAGER 112 [facility] 160 [place] [address] [facility] 02/20/24 Penelope Walker, FEATHER MAKER-INFRASTRUCTURE MANAGER [address] [address] Nurse Practitioner Behavioral Health 07/28/22 documented as of this encounter
--- OUTSIDE RECORDS SUMMARY | 2024-09-09 12:38 | XMS_ITS | Encounter Summary ---
Author Organization [facility] Address [address] [place] [address] Care Team Providers Care Bobbin Sorter Name Role Phone Penelope Walker LABOR STANDARDS DIRECTOR-LUMBER STACKER Unavailable Blane Beavers DO Primary Care Provider [phone]- [phone] Penelope Walker LABOR STANDARDS DIRECTOR-LUMBER STACKER Unavailable Encounter Details Date Type Department Care Team (Late st Contact Info) Description 08/17/2023 Abstract [facility] [address] [facility] 230 [place] [phone] Blane Beavers DO [address] [facility] 230 [place], [place] [address] Social History Tobacco Use Types Packs/Day Years [...] 02/09/2023 How often do you attend chur [employer] or protestant services? 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 on 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 Not on nidia e Not on file documented as of this encounter Plan of Treatment Upcoming Encounters Date Type Department Care Team (Late st Contact Info) Description 09/19/2024 10:00 AM EDT Office Visit [facility] [address] [place] [address] Penelope Walker, LABOR STANDARDS DIRECTOR-LUMBER STACKER [address] [place] [address] documented as of this encounter Visit Diagnoses Not on filedocumented in this encounter Care Teams Bobbin Sorter Relationship Specialty Start Date End Date Blane Beavers DO [address] [facility] 230 [place] [address] PCP - General Family Medicine 02/09/23 Penelope Walker, LABOR STANDARDS DIRECTOR-LUMBER STACKER 112 [facility] 160 [place] [address] [facility] 02/20/24 Penelope Walker, LABOR STANDARDS DIRECTOR-LUMBER STACKER [address] [address] Nurse Practitioner Behavioral Health 07/28/22 documented as of this encounter
--- OUTSIDE RECORDS SUMMARY | 2024-09-09 12:38 | XMS_ITS | Encounter Summary ---
Author Organization [employer] tem Address [id number] [address] [place] [address] Care Team Providers Care Director Of Marketing Communications Name Role Phone Unavailable Primary Care Provider Unavailabl e Encounter Details Date Type Department Care Team (Late st Contact Info) Description 05/20/2020 Orders Only Maternal- Medicine at [address] [place] [address] External, Scanning Provider Social History Tobacco Use Types Packs/Day Years Used Date Smoking Tobacco: Never Alcohol Use Standard Drinks/Week Comments Not Currently 0 (1 standard drink = 0.6 oz pur e alcohol) Childcare Answer Date Recorded Childcare Unknown 07/28/2018 Employment Answer Date Recorded Employment Unknown 07/28/2018 Purpose - Life Answer Date Recorded Purpose and direction in life Unknown Comments Yes Sex and Gender Information Value Date Recorded Sex Assigned at Not on file Legal Sex Female 12:11 PM EDT Gender Identity Not on file Sexual Orientation Not on file documented as of this encounter Plan of Treatment Not on file documented as of this encounter Procedures Procedure Name Priority Date/Time Associated Diagnosis Comments US PREG LMTD 1 OR MORE FETUS Routine 05/17/2020 US PREG LMTD 1 OR MORE FETUS Routine 04/19/2020 US PREG LMTD 1 OR MORE FETUS Routine 01/30/2020 documented in this encounter Results * Ultrasound limited 1 or more fetus (05/17/2020) Anatomical Region Laterality Modality OB-ROAD SUPERVISOR OF ENGINES Ultrasound Narrative 05/17/2020 See attached report us Scanning Provider External IMG US ORDERABLES Philippe richi Result - Final * Ultrasound limited 1 or more fetus (04/19/2020) Anatomical Region Laterality Modality OB-ROAD SUPERVISOR OF ENGINES Ultrasound Narrative 04/19/2020 See attached report us Scanning Provider External IMG US ORDERABLES Philippe richi Result - Final * Ultrasound limited 1 or more fetus (01/30/2020) Anatomical Region Laterality Modality OB-ROAD SUPERVISOR OF ENGINES Ultrasound Narrative 01/30/2020 See attached report us Scanning Provider External IMG US ORDERABLES Philippe richi Result - Final documented in this encounter Visit Diagnoses Not on filedocumented in this encounter
--- OUTSIDE RECORDS SUMMARY | 2024-09-09 12:38 | XMS_ITS | Clinical Summary ---
Author Organization [employer] tem Address [id number] [address] [place] [address] Care Team Providers Care Toys And Games Hand Finisher Name Role Phone Unavailable Primary Care Provider Unavailabl e Allergies Active Allergy Reactions Criticality Noted Date Comments Etonogestrel-Ethinyl Estradiol 05/20 Medications sertraline (ZOLOFT) 50 mg tablet Take 50 mg by mouth daily. Active ondansetron ODT (ZOFRAN-ODT) 8 mg disintegrating tablet Dissolve 8 mg on tongue every 8 (eight) hours as needed for nausea or vomiting. Active Active Problems No known active problems Family History Medical History Relation Name Comments Hypertension Father Crohn's disease Maternal Aunt Depression Maternal Uncle Schizophrenia Maternal Uncle Lung cancer Paternal Grandfather Relation Name Status Comments Brother Alive Daughter Alive Father Alive Maternal Aunt Maternal Uncle Mother Alive Paternal Grandfather Son Alive Social History Tobacco Use Types Packs/Day Years Used Date Smoking Tobacco: Never Smokeless Tobacco: Never Alcohol Use Standard Drinks/Week Comments Not Currently 0 (1 standard drink = 0.6 oz pur e alcohol) Childcare Answer Date Recorded Childcare Unknown 07/28/2018 Employment Answer Date Recorded Employment Unknown 07/28/2018 Purpose - Life Answer Date Recorded Purpose and direction in life Unknown Comments No Sex and Gender Information Value Date Recorded Sex Assigned at Not on file Legal Sex Female 12:11 PM EDT Gender Identity Not on file Sexual Orientation Not on file Last Filed Vital Signs Vital Sign Reading Time Taken Comments Blood Pressure 112/71 05/25/2020 9:08 AM EDT Pulse 115 05/25/2020 9:08 AM EDT Temperature 36.8 C (98.2 F) 09/07/2017 6:39 PM EDT Respiratory Rate 18 09/07/2017 8:15 PM EDT Oxygen Saturation 98% 09/07/2017 6:39 PM EDT Inhaled Oxygen Concentration - - Weight 65.2 kg (143 lb 12.8 oz) 05/25/2020 9:08 AM EDT Height 160 cm (5' 3 ) 05/25/2020 9:08 AM EDT Body Mass Index 25.47 05/25/2020 9:08 AM EDT Plan of Treatment Health Maintenance Due Date Last Done Comments Depression Screening 2007 Tobacco Screening 2007 Adult BMI Screening 12/18/2013 DTaP,Tdap and Td Vaccines (1 - Tdap) 12/18/2014 Pap Smear 01/29/2023 01/30/2020 Influenza Vaccine 10/20/2024 Medical Devices Not on file Procedures Procedure Name Priority Date/Time Associated Diagnosis Comments HIGH RISK HPV W/ALMA Routine 01/30/2020 from Last 3 Months or Most Recently Relevant to Health Maintenance Results * High risk HPV w/alma (01/30/2020) Other High Risk Hpv See attached report MANUALLY TRANSCRIBED RESULTS Comment:See attached report us Not In System Ref Prov LAB BLOOD ORDERABLES Edit ed Result - Final MANUALLY TRANSCRIBED RESULTS from Last 3 Months or Most Recently Relevant to Health Maintenance Insurance [facility] MEDICAID Member Subscriber Plan / Payer (Ef fective 2022-Present) Name:Mahan, Emma Member ID:Not on file Relation to Subscriber:Self Name:Emma Mahan Subscriber ID:Not on file Payer ID:Not on file Group ID:Not on file Type:Not on file Address: [facility] [id number] [place] [id number] Advance Directives * Full Code (Latest Code Status on File) Date Activated Date Inactivated Comments 09/07/2017 8:59 PM 09/07/2017 11:24 PM
--- OUTSIDE RECORDS SUMMARY | 2024-09-09 12:38 | XMS_ITS | Encounter Summary ---
Author Organization [facility] Address [address] [place] [address] Care Team Providers Care Qa Specialist Name Role Phone Penelope Walker VISITOR SERVICES REPRESENTATIVE-WINDOWS ADMINISTRATOR Unavailable Blane Beavers DO Primary Care Provider +1- [phone] Penelope Walker VISITOR SERVICES REPRESENTATIVE-WINDOWS ADMINISTRATOR Unavailable Encounter Details Date Type Department Care Team (Late st Contact Info) Description 08/17/2023 Abstract [facility] [address] [facility] 230 [place] [phone] Blane Beavers DO [address] [facility] [address] [place], [place] [id number] Social History Tobacco Use Types Packs/Day Years [...] 02/09/2023 How often do you attend chur [employer] or yarsanism services? Never 02/09/2023 Do you belong to any clubs o r organizations such as jewish groups, unions, fraternal or athletic groups, or [...] Recorded Patient Health Questionnaire-2 Score 0 04/13/2023 [facility] of Occupat ional Health - [...] place to sleep or slept in a fci (including now)? No 02/09/2023 Education Answer Date Recorded What is the highest level of school you have completed or the highest degree you have received? 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 on file Not on nidia e Not on file documented as of this encounter Plan of Treatment Upcoming Encounters Date Type Department Care Team (Late st Contact Info) Description 09/19/2024 10:00 AM EDT Office Visit [facility] [address] [place] [address] Penelope Walker, VISITOR SERVICES REPRESENTATIVE-WINDOWS ADMINISTRATOR [address] [place] [address] documented as of this encounter Visit Diagnoses Not on filedocumented in this encounter Care Teams Qa Specialist Relationship Specialty Start Date End Date Blane Beavers DO [address] [facility] [address] [place] [address] PCP - General Family Medicine 02/09/23 Penelope Walker, VISITOR SERVICES REPRESENTATIVE-WINDOWS ADMINISTRATOR 112 [facility] 160 [place] [address] [facility] 02/20/24 Penelope Walker, VISITOR SERVICES REPRESENTATIVE-WINDOWS ADMINISTRATOR [address] [address] Nurse Practitioner Behavioral Health 07/28/22 documented as of this encounter
--- OUTSIDE RECORDS SUMMARY | 2024-09-09 12:38 | XMS_ITS | Encounter Summary ---
Author Organization [employer] tem Address [id number] [address] [place] [address] Care Team Providers Care Kick Boxer Name Role Phone Unavailable Primary Care Provider Unavailabl e Encounter Details Date Type Department Care Team (Late st Contact Info) Description 05/20/2020 Telephone Maternal- Medicine at [facility] [address] [place] [address] Charley Reyes LPN Social History Tobacco Use Types Packs/Day Years [...] on file documented as of this encounter Visit Diagnoses Not on filedocumented in this encounter
--- OUTSIDE RECORDS SUMMARY | 2024-09-09 12:38 | XMS_ITS | Encounter Summary ---
Author Organization [facility] Address [address] [place] [address] Care Team Providers Care Drink Mixer Name Role Phone Penelope Walker MIXED CROP AND LIVESTOCK FARM WORKER-OCULAR CARE TECHNOLOGIST Unavailable Blane Beavers DO Primary Care Provider [phone]- [phone] Penelope Walker MIXED CROP [employer] LIVESTOCK FARM WORKER-OCULAR CARE TECHNOLOGIST Unavailable Encounter Details Date Type Department Care Team (Late st Contact Info) Description 08/17/2023 Abstract [facility] [address] [facility] 230 [place] [phone] Blane Beavers DO [address] [facility] [address] [place], [place] [phone] Social History Tobacco Use Types Packs/Day Years [...] 02/09/2023 How often do you attend chur [employer] or baptist services? Never 02/09/2023 Do you belong to any clubs o r organizations such as roman catholic groups, unions, fraternal or athletic groups, or [...] Recorded Patient Health Questionnaire-2 Score 0 04/13/2023 [facility] of Occupat ional Health - Occupational Stress [...] place to sleep or slept in a long term (including now)? No 02/09/2023 Education Answer Date Recorded What is the highest level of school you have completed or the highest degree you have received? 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 on file Not on nidia e Not on file documented as of this encounter Plan of Treatment Upcoming Encounters Date Type Department Care Team (Late st Contact Info) Description 09/19/2024 10:00 AM EDT Office Visit [facility] [address] [place] [address] Penelope Walker, MIXED CROP AND LIVESTOCK FARM WORKER-OCULAR CARE TECHNOLOGIST [address] [place] [address] documented as of this encounter Visit Diagnoses Not on filedocumented in this encounter Care Teams Drink Mixer Relationship Specialty Start Date End Date Blane Beavers DO [address] [facility] [address] [place] [address] PCP - General Family Medicine 02/09/23 Peneloep Walker, MIXED CROP AND LIVESTOCK FARM WORKER-OCULAR CARE TECHNOLOGIST 112 [facility] 160 [place] [address] [facility] 02/20/24 Penelope Walker, MIXED CROP AND LIVESTOCK FARM WORKER-OCULAR CARE TECHNOLOGIST [address] [address] Nurse Practitioner Behavioral Health 07/28/22 documented as of this encounter
--- OUTSIDE RECORDS SUMMARY | 2024-09-09 12:38 | XMS_ITS | Encounter Summary ---
Author Organization [facility] Address [address] [place] [address] Care Team Providers Care Asbestos Shingle Inspector Name Role Phone Penelope Walker CONTINUOUS PROCESS TANNER ROTARY DRUM-DELIVERY MAN Unavailable Blane Beavers DO Primary Care Provider [phone]- [phone] Penelope Walker CONTINUOUS PROCESS TANNER ROTARY DRUM-DELIVERY MAN Unavailable Encounter Details Date Type Department Care Team (Late st Contact Info) Description 08/17/2023 Abstract [facility] [address] [facility] 230 [place] [phone] Blane Beavers DO [address] [facility] 230 [place], [place] [phone] Social History Tobacco Use Types Packs/Day Years [...] 02/09/2023 How often do you attend chur [employer] or faith services? 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 on file Not on nidia e Not on file documented as of this encounter Plan of Treatment Upcoming Encounters Date Type Department Care Team (Late st Contact Info) Description 09/19/2024 10:00 AM EDT Office Visit [facility] [address] [place] [address] Penelope Walker, CONTINUOUS PROCESS TANNER ROTARY DRUM-DELIVERY MAN [address] [place] [address] documented as of this encounter Visit Diagnoses Not on filedocumented in this encounter Care Teams Asbestos Shingle Inspector Relationship Specialty Start Date End Date Blane Beavers DO [address] [facility] 230 [place] [address] PCP - General Family Medicine 02/09/23 Penelope Walker, CONTINUOUS PROCESS TANNER ROTARY DRUM-DELIVERY MAN 112 [facility] 160 [place] [address] [facility] 02/20/24 Penelope Walker, CONTINUOUS PROCESS TANNER ROTARY DRUM-DELIVERY MAN [address] [address] Nurse Practitioner Behavioral Health 07/28/22 documented as of this encounter
--- OUTSIDE RECORDS SUMMARY | 2024-09-09 12:38 | XMS_ITS | Encounter Summary ---
Author Organization [facility] Address [address] [place] [address] Care Team Providers Care Technical Sales Associate Name Role Phone Penelope Walker LIBRARY ACQUISITIONS TECHNICIAN-PHARMACISTS Unavailable Blane Beavers DO Primary Care Provider [phone]- [phone] Penelope Walker LIBRARY ACQUISITIONS TECHNICIAN-PHARMACISTS Unavailable Encounter Details Date Type Department Care Team (Late st Contact Info) Description 08/17/2023 Abstract [facility] [address] [facility] 230 [place] [phone] Blane Beavers DO [address] [facility] 230 [place], [place] [id number] Social History Tobacco Use Types Packs/Day Years [...] 02/09/2023 How often do you attend chur [employer] or buddhism services? 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 on 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 Not on nidia e Not on file documented as of this encounter Plan of Treatment Upcoming Encounters Date Type Department Care Team (Late st Contact Info) Description 09/19/2024 10:00 AM EDT Office Visit [facility] [address] [place] [address] Penelope Walker, LIBRARY ACQUISITIONS TECHNICIAN-PHARMACISTS [address] [place] [address] documented as of this encounter Visit Diagnoses Not on filedocumented in this encounter Care Teams Technical Sales Associate Relationship Specialty Start Date End Date Blane Beavers DO [address] [facility] [address] [place] [address] PCP - General Family Medicine 02/09/23 Penelope Walker, LIBRARY ACQUISITIONS TECHNICIAN-PHARMACISTS 112 [facility] 160 [place] [address] [facility] 02/20/24 Penelope Walker, LIBRARY ACQUISITIONS TECHNICIAN-PHARMACISTS [address] [address] Nurse Practitioner Behavioral Health 07/28/22 documented as of this encounter
--- OUTSIDE RECORDS SUMMARY | 2024-09-09 12:38 | XMS_ITS | Encounter Summary ---
Author Organization [facility] Address [address] [place] [address] Care Team Providers Care Public Address Servicer Name Role Phone Penelope Walker HANDBAG FINISHER-DONATIONS ATTENDANT Unavailable Blane Beavers DO Primary Care Provider [phone] Penelope Walker HANDBAG FINISHER-DONATIONS ATTENDANT Unavailable Reason for Visit * Reason Comments Med Refill Encounter Details Date Type Department Care Team (Late st Contact Info) Description 07/15/2023 Refill [facility] [address] [facility] [address] [place] [phone] Penelope Walker, HANDBAG FINISHER-DONATIONS ATTENDANT [address] [facility] 160 [place] [address] Bipolar 2 disorder (HCC) Social History Tobacco Use Types Packs/Day Years [...] How often do you attend chur or methodist services? Never 02/09/2023 Do you belong to any clubs o r organizations such as faith groups, unions, fraternal or athletic groups, or [...] Recorded Patient Health Questionnaire-2 Score 0 04/13/2023 [facility] [place] [facility] of Occupat ional Health - Occupational Stress [...] Master's degree (e.g., MA, MS, Jennifer, MEd, RESIDENTIAL ELECTRICIAN, NILAM) 03/19/2023 Comments Unknown Sex and Gender Information Value Date Recorded Sex Assigned at Not on file Legal Sex Female 6:35 PM EDT Gender Identity Not on file Sexual Orientation Not on file Occupation Industry Job Start Date Job End Date 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 on file Not on nidia e Not on file documented as of this encounter Plan of Treatment Upcoming Encounters Date Type Department Care Team (Late st Contact Info) Description 09/19/2024 10:00 AM EDT Office Visit [facility] [address] [place] [address] Penelope Walker, HANDBAG FINISHER-DONATIONS ATTENDANT [address] [place] [address] documented as of this encounter Visit Diagnoses Diagnosis Bipolar 2 disorder (HCC) Other bipolar disorders documented in this encounter Care Teams Public Address Servicer Relationship Specialty Start Date End Date Blane Beavers DO [address] [facility] 230 [place] [address] PCP - General Family Medicine 02/09/23 Penelope Walker, HANDBAG FINISHER-DONATIONS ATTENDANT 112 [facility] 160 [place] [address] PCP - [facility] 02/20/24 Penelope Walker, HANDBAG FINISHER-DONATIONS ATTENDANT 112 [facility] 160 [place] [address] Nurse Practitioner Behavioral Health 07/28/22 documented as of this encounter
--- OUTSIDE RECORDS SUMMARY | 2024-09-09 12:38 | XMS_ITS | Encounter Summary ---
Author Organization [facility] Address [address] [place] [address] Care Team Providers Care Media Supervisor Name Role Phone Penelope Walker RETORT LOAD EXPEDITER-BULK SEALER OPERATOR Unavailable Blane Beavers DO Primary Care Provider [phone]- [phone] Penelope Walker RETORT LOAD EXPEDITER-BULK SEALER OPERATOR Unavailable Encounter Details Date Type Department Care Team (Late st Contact Info) Description 08/17/2023 Abstract [facility] [address] [facility] 230 [place] [phone] Blane Beavers DO [address] [facility] 230 [place], [place] [phone] Social History Tobacco Use Types Packs/Day Years [...] 02/09/2023 How often do you attend chur [employer] or quaker services? Never 02/09/2023 Do you belong to any clubs o r organizations such as lutheran groups, unions, fraternal or athletic groups, or [...] Recorded Patient Health Questionnaire-2 Score 0 04/13/2023 [facility] of Occupat ional Health - Occupational [...] place to sleep or slept in a assisted (including now)? No 02/09/2023 Education Answer Date Recorded What is the highest level of school you have completed or the highest degree you have received? 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 [address] [place] [address] Penelope Walker, RETORT LOAD EXPEDITER-BULK SEALER OPERATOR [address] [place] [address] documented as of this encounter Visit Diagnoses Not on filedocumented in this encounter Care Teams Media Supervisor Relationship Specialty Start Date End Date Blane Beavers DO [address] [facility] 230 [place] [address] PCP - General Family Medicine 02/09/23 Penelope Walker, RETORT LOAD EXPEDITER-BULK SEALER OPERATOR 112 [facility] 160 [place] [address] [facility] 02/20/24 Penelope Walker, RETORT LOAD EXPEDITER-BULK SEALER OPERATOR [address] [address] Nurse Practitioner Behavioral Health 07/28/22 documented as of this encounter
--- OUTSIDE RECORDS SUMMARY | 2024-09-09 12:38 | XMS_ITS | Encounter Summary ---
Author Organization [facility] Address [address] [place] [address] Care Team Providers Care Preventive Maintenance Engineer Name Role Phone Abrahan Merrill MD Primary Care Provider + [phone] Penelope Walker DIE FINISHER FORGING-MACHINE TRY OUT SETTER Unavailable Blane Beavers DO Primary Care Provider + [phone] Penelope Walker DIE FINISHER FORGING-MACHINE TRY OUT SETTER Unavailable Encounter Details Date Type Department Care Team (Late st Contact Info) Description 01/29/2023 Abstract [facility] [address] [facility] [address] [place] [address] Blane Beavers DO [address] [facility] 230 [place] [address] Social History Tobacco Use Types Packs/Day Years Used Date Smoking Tobacco: Never Smokeless Tobacco: Never Alcohol Use Standard Drinks/Week Comments Yes 0 (1 standard drink = 0.6 oz pure alcohol) 600 mg of caffiene, energy drinks AUDIT-C Answer Date Recorded Q1: How often do you have a drink containing alc ohol? 2-4 times a month 12/20/2022 Q2: How many drinks containi ng alcohol do you have on a typical day when you are drinking? 1 or 2 12/20/2022 Q3: How often do you have si x or more drinks on one occasion? Never 12/20/2022 PHQ-2 Answer Date Recorded Patient Health Questionnaire-2 Score 2 12/20/2022 Comments Unknown Sex and Gender Information Value Date Recorded Sex Assigned at Not on file Legal Sex Female 6:35 PM EDT Gender Identity Not on file Sexual Orientation Not on file COVID-19 Exposure Response Date Recorded In the last 10 days, have yo u been in contact with someone who was confirmed or suspected to have Coronavirus/COVID-19? No / Unsure 01/25/2023 1:58 PM EST documented as of this encounter Plan of Treatment Upcoming Encounters Date Type Department Care Team (Late st Contact Info) Description 09/19/2024 10:00 AM EDT Office Visit [facility] [address] [facility] [address] [place] [phone] Penelope Walker DIE FINISHER FORGING-MACHINE TRY OUT SETTER 112 [facility] 160 [place] [address] documented as of this encounter Visit Diagnoses Not on filedocumented in this encounter Care Teams Preventive Maintenance Engineer Relationship Specialty Start Date End Date Abrahan Merrill MD [address] [place] [address] PCP - General Family Medicine 07/28/22 02/08/23 Blane Beavers DO [address] [facility] 230 [place] [address] PCP - General Family Medicine 02/09/23 Penelope Walker DIE FINISHER FORGING-MACHINE TRY OUT SETTER 112 [facility] 160 [place] [address] PCP - [employer] 02/20/24 Penelope Walker DIE FINISHER FORGING-MACHINE TRY OUT SETTER 112 [facility] 160 [place] [address] Nurse Practitioner Behavioral Health 07/28/22 documented as of this encounter
--- NOTE | 2024-09-09 12:55 | XR_ITS ---
The [address] [address] Patient Name: LEONA GOODSON MRN: [id number] date: 1995 Sex: F Assigned Patient [facility] Current Patient Location: [facility] Accession/Order Number: [id number] Exam Date: 09/09/2024 13:15 Report Date: 09/09/2024 13:15 At the request of: HAIDER SOUZA MD Procedure: XR chest 2V Chest 2 views CLINICAL HISTORY: Preop exam COMPARISON: None FINDINGS: Heart normal size. Lungs are clear. No free air. XR/XR chest 2V IMPRESSION: NO ACUTE CARDIOPULMONARY ABNORMALITY. Impression dictated by: José Manuel Sim Jr. [email or web address] 09/09/2024 1:15 PM Dictation Location: [place] [address] Electronically authenticated by: [id number] Y Date: 09/09/2024 13:15
--- NOTE | 2024-09-09 13:05 | PM.PRESUREVA ---
History of Present Illness History of Present Illness Chief complaint: Right Kidney Stone Narrative: Patient presents for presurgical testing. Please see HPI from Dr. Ba dated September 08, 2024. Review of Systems ROS Narrative Please see ROS from Dr. Ba dated September 08, 2024. PFSH PFS Medical History (Updated 09/09/24 @ 12:54 by Lizz Glass NP) Bipolar disorder ?F31.9 - Bipolar disorder, unspecified (ICD-10) Depression ?F32.A - Depression, unspecified (ICD-10) Anxiety ?F41.9 - Anxiety disorder, unspecified (ICD-10) Kidney stone ?N20.0 - Calculus of kidney (ICD-10) Bipolar 2 disorder ?F31.81 - Bipolar II disorder (ICD-10) Surgical History (Updated 09/09/24 @ 12:54 by Lizz Glass NP) Status post dilation of urethral narrowing ?Z98.890 - Other specified postprocedural states (ICD-10) History of salpingectomy ?Z90.79 - Acquired absence of other genital organ(s) (ICD-10) S/P cystoscopy with ureteral stent placement (08/16/23) ?Z96.0 - Presence of urogenital implants (ICD-10) H/O lithotripsy ?Z98.890 - Other specified postprocedural states (ICD-10) Family History (Updated 09/09/24 @ 12:54 by Lizz Glass NP) Other Family history of diabetes mellitus Family history of hypertension Family history of prostate cancer Social History (Updated 09/09/24 @ 12:51 by Lizz Glass NP) Within the past year, how often did you have a drink containing alcohol: monthly or less Do you use any of these nicotine containing products: vaping products Non-prescribed substance use: denies use 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 Highest level of school completed/degree received: Bachelor's degree Little interest or pleasure in doing things: not at all Feeling down, depressed, or hopeless: not at all Meds Home Medications and Allergies Home Medications ?Medication ?Instructions ?Recorded ?Confirmed ?Type ciprofloxacin HCl 500 mg tablet 500 mg PO BID 7 days #14 tabs 08/14/23 09/09/24 Rx (Cipro) lamotrigine 150 mg tablet 150 mg PO .QHS 08/14/23 09/09/24 History cariprazine 3 mg capsule (Vraylar) 3 mg PO .QHS 08/16/23 09/09/24 History sertraline 50 mg tablet 50 mg PO .QHS 08/16/23 09/09/24 History ketorolac 10 mg tablet 10 mg PO Q8H PRN pain 5 days #15 09/06/24 09/09/24 Rx tabs Allergies Allergy/AdvReac Type Severity Reaction Status Date / Time ethinyl estradiol (From Allergy suicidal Verified 09/09/24 12:48 NuvaRing) etonogestrel (From NuvaRing) Allergy suicidal Verified 09/09/24 12:48 Exam Narrative Exam Narrative: Constitutional: Awake, alert, comfortable, well-appearing, nontoxic, interactive, vital signs as charted Head: Normocephalic, atraumatic Neck: Supple, normal appearance, normal range of motion, no meningeal signs, no lymphadenopathy Respiratory: No respiratory distress, breath sounds clear Cardiovascular: Regular rate and rhythm, strong and regular heart tones Abdomen: Nontender, normal bowel sounds, soft, no CVA tenderness Musculoskeletal: Normal gait, no swelling or edema Skin: No rashes or induration, no lesions, only visible skin inspected Neuro: No neurological deficits, normal sensation Psychiatric: Oriented ?3, normal affect Assessment and Plan Assessment and Plan (1) Kidney stone: Plan Cystoscopy, right retrograde, right ureteroscopy, holmium laser, possible right stent placement scheduled with Dr. Ba September 11, 2024.
[2024-09-09 13:25] LABS: INR 1.02; Partial Thromboplastin Time 27.8 sec (22.3-36.2); Prothrombin Time 10.8 sec (9.0-11.6)
== END 2024-09-09 12:34 | disposition home or self-care (01) ==
LOC: PST 12:35
PROVIDERS: PCP Family Medicine; Visit Provider Urology
DX: Z01.810 Encounter for preprocedural cardiovascular examination (principal); Z01.812 Encounter for preprocedural laboratory examination; Z01.818 Encounter for other preprocedural examination; N20.0 Calculus of kidney; N30.90 Cystitis, unspecified without hematuria
CPT/HCPCS: 71046; 85610; 85730; G0463

== ENCOUNTER 2024-09-11 08:34 | Day surgery (SDC) | payer OTHER, SELFPAY ==
[2024-09-09 13:02] VITALS: BP 126/82; PULSE 104; TEMP 36.3; O2SAT 97; BMI 33.3
[2024-09-11] VITALS (19 sets, daily range): BP systolic 106–149; BP diastolic 68–85; PULSE 89–108; TEMP 36.2–36.3; O2SAT 94–98; BMI 33.3
--- NOTE | 2024-09-11 09:06 | PC.NURSE ---
Patient has bruising bilateral arms and right had from IV sticks from recent er trip.
[2024-09-11] MEDS: CEFAZOLIN SODIUM 2 GM/50 ML D5W PREMIX IV (09:17)
[2024-09-11] MEDS: LEVOFLOXACIN 750 MG/150 ML IV (10:12)
[2024-09-11] MEDS: D5W IV (10:12)
[2024-09-11] MEDS: CEFAZOLIN SODIUM 1 GM/50 ML D5W PREMIX IV (10:19)
--- NOTE | 2024-09-11 11:56 | P.URON_ITS ---
Urology Surgery Operative Note Operative Note Procedure Date: 09/11/24 Time Out Performed: yes Pre-op Diagnosis: Right nephrolithiasis; partial staghorn Post-op Diagnosis: same as pre-op Procedures performed: 1. Cystoscopy. 2. Right ureteroscopy. 3. Right pyeloscopy. 4. Thulium laser lithotripsy of a very large stone burden i.e. greater than 2.5 cm. For over 1 hour 3. Stone fragment extraction. 4. Placement of 7 Northern Irish variable length right ureteral stent Anesthesia: JANET Primary Surgeon: Jesse Ba Complications: None Estimated blood loss (mL): 0 Findings: Extremely large right partial staghorn stone with an adjacent 8 mm stone. Specimens: Right renal stone pieces Drains: 7 Northern Irish variable length right ureteral stent Indications for Procedures: This 28-year-old lady developed flank pain and was found to have not only a UTI but a partial staghorn stone in the right renal collecting system. This was within the renal pelvis and it was essentially 2.5 cm. There was an adjacent stone about 8 mm also. She has been on oral Cipro for several days and her culture was pansensitive. She now presents for cystoscopy right stent placement and probable pyeloscopy and thulium laser lithotripsy. She has signed an informed consent after all risks were explained. Detailed description of Procedure: The patient was brought to the operating room and placed on the operating room table in the supine position. SCDs were placed on the lower extremities and turned on and functioning during the entire case. Timeout was done by all parties in the room. We all agreed upon the patient's identification and the planned procedures for this patient. Genn. anesthesia was then administered. The patient was then repositioned into the modified dorsal lithotomy position. All pressure points were satisfactorily padded. Genitalia were sterilely prepped and draped in usual fashion. I started by passing a 22 Northern Irish Olympus cystoscope per urethra and into the bladder. Panendoscopy in the bladder revealed no evidence of any tumor stones or lesions. I then passed a Glidewire through the scope and up the right ureter and it got right into the renal pelvis where I could see her large stone. The wire hit the stone and wrapped around it into the calyces. The scope was removed and I then passed a 10/12 Northern Irish ureteral access sheath over the wire up to the L5 position. The wire and stylette were then removed. I then passed a flexible ureteroscope through the sheath and into the ureter and ascended up the ureter and then went into the renal pelvis. I then passed the 270 ? laser fiber through the scope and made contact with the stone. I used the thulium laser initially at 8 W dusting then 10 W dusting. I ultimately went up to 15 W dusting. I then intermittently switched to 10 W fragmenting. The stone slowly steadily fragmented and dusted. A dramatic amount of debris and sand was created due to the very large size of the stone burden. We lasered straight for well over an hour. Upon completion, we could not appreciate any true formed stone remaining. Fluoroscopically we could not see any except for the ghost shadow of dust. The wire was passed through the scope into the kidney and the scope and sheath were then removed. Prior to removing the sheath we had tiny fragments E flux down the sheath into a specimen cup and these were sent for stone analysis. Cystoscope was backloaded over the wire and passed into the bladder and a 7 Northern Irish variable length stent was passed over the wire up to the kidney. The wire was removed and there were good curls in the kidney and in the bladder. The bladder was drained of its contents and the scope was then removed. The anesthetic was then reversed. She was then [facility] and wheeled to PACU in stable condition.
[2024-09-11] MEDS: HYDROMORPHONE HCL 0.5 MG/0.5 ML SYRINGE IV ×3 (12:06→12:29)
[2024-09-11] MEDS: SOLIFENACIN SUCCINATE 10 MG TABLET PO (12:06)
--- NOTE | 2024-09-11 12:52 | PC.NURSE ---
PATIENT STATES SHE IS UNCOMFORTABLE . PATIENT REQUESTED HEAT TO BE APPLIED RATING PAIN AT A 5. PATIENT STATES HEAT FEELS GOOD.
[2024-09-11] MEDS: PROMETHAZINE HCL 25 MG TABLET PO (13:59)
== END 2024-09-11 14:27 | disposition home or self-care (01) ==
PROVIDERS: Anesthesiology; PCP Family Medicine; Visit Provider Urology
PROC: (CPT 918; principal; 2024-09-11 09:30)
DX: N20.0 Calculus of kidney (principal); N30.90 Cystitis, unspecified without hematuria; F32.A Depression, unspecified; Z87.440 Personal history of urinary (tract) infections; F17.290 Nicotine dependence, other tobacco product, uncomplicated; Z98.51 Tubal ligation status
CPT/HCPCS: 52356; 36415; 76000; 82365; 84703; 99999; J0690; J1100; J1171; J1885; J2250; J2405; J2704; J3010; Q0169

== ENCOUNTER 2024-09-16 13:18 | Outpatient (OUT) | payer OTHER, SELFPAY ==
--- OUTSIDE RECORDS SUMMARY | 2018-09-25 09:00 | XMS_ITS | Continuity of Care Document ---
Author Organization [employer] [facility] Address [address] [facility] [place] [address] Phone Care Team Providers Care Heavy Truck Technician Name Role Phone Unavailable Unavailable Unavailable Procedures [...] Immunity Screen, ACIF. @ Test Performed By: [employer] [facility] Boby Casey M.D., Ph.D., Contamination Consultant [address] [place] [phone] [facility] #[id number] Panel Description: Mumps IgG Ab Final SPECIMEN: [...] Diagnoses Date Provider Providers Copied on Encounter [employer] [facility], [address] [facility], [place], [place], [id number], [place] tel:[phone] [facility] No Information No Information Family History [...]
--- OUTSIDE RECORDS SUMMARY | 2020-09-09 09:48 | XMS_ITS | Continuity of Care Document ---
Author Organization [facility] Address [address] [place] [address] Phone Care Team Providers Care Wood Gouger Name Role Phone Dee Gonzalez Unavailable Unavaila [...] Diagnoses Date Provider Providers Copied on Encounter [facility], [address] [place], [place], [id number], [place] tel:[phone] [facility] No Information 1 Maykel Price. [address] [place], [place], [id number] , [place]. tel:[phone] [facility], [address] [place], [place], [address], [place] tel:[phone] [facility] No Information 0 Caio Geller. [address] [place], [place], [id number] , [place]. tel: [phone] [facility], [address] [place], [place], [address], [place] tel:[phone] [facility] Encounter for screening for respiratory tuberculosis 9 [facility] [address] [place], [place], [address] , [place]. tel: [phone] [facility], [address] [place] [address], [id number], [place] tel:[phone] [facility] Encounter for screening for respiratory tuberculosis 9 [facility] DO Gauthier. [address] [place], [place], [address] , [place]. tel: [phone] OFFICE/OUTPAT IENT VISIT, EST [facility], [address] [place], [place], [address], [place] tel:[phone] [facility] Initial Visit (chief complaint) control (chief complaint) Gynecological ExaminationOther specified contraceptive managementNeoplasm of uncertain behavior of other and unspecified female genital organs 4 [facility] [address] [place], [place], [address] , [place]. tel: [phone] Family History Family Member Type Diagnosis Age [...] name Insurance type Covered republican ID Authoriza tidaniel(s) [place] [employer] [facility]FC 190 [id number] Medicaid Wrap - [facility] [place] [id number] [place] [employer] [place] 190 [id number] [place] [employer] [place] 190 [id number] Medicaid Wrap - [facility] [place] [id number] Social History Type Description Quantity Date Captured [...]
--- OUTSIDE RECORDS SUMMARY | 2024-09-16 13:20 | XMS_ITS | Encounter Summary ---
Author Organization [facility] Address [address] [facility] [place] [address] Care Team Providers Care Elevator Starter Name Role Phone Penelope Walker EMERGENCY DEPARTMENT-CRAB FISHERMAN Unavailable Blane Beavers DO Primary Care Provider [phone] Penelope Walker EMERGENCY DEPARTMENT-CRAB FISHERMAN Unavailable Encounter Details Date Type Department Care Team (Late st Contact Info) Description 08/17/2023 Abstract [facility] [address] [facility] [address] [place] [address] Blane Beavers DO [address] [facility] [address] [place] [address] Social History Tobacco Use Types Packs/Day Years [...] 02/09/2023 How often do you attend chur ch or caodaism services? Never 02/09/2023 Do you belong to any clubs o r organizations such as methodist groups, unions, fraternal or athletic groups, or [...] Recorded Patient Health Questionnaire-2 Score 0 04/13/2023 [facility] Occupat ional Health - [...] place to sleep or slept in a nursing home (including now)? No 02/09/2023 Education Answer Date Recorded What is the highest level of school you have completed or the highest degree you have received? 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 on file Not on nidia e Not on file documented as of this encounter Plan of Treatment Upcoming Encounters Date Type Department Care Team (Late st Contact Info) Description 09/19/2024 10:00 AM EDT [facility] [address] [place] [address] Penelope Walker, EMERGENCY DEPARTMENT-CRAB FISHERMAN [address] [place], [place] [id number] documented as of this encounter Visit Diagnoses Not on filedocumented in this encounter Care Teams Elevator Starter Relationship Specialty Start Date End Date Blane Beavers DO [address] [facility] [address] [place] [address] PCP - General Family Medicine 02/09/23 Penelope Walker, TRISTAN-CRAB FISHERMAN 112 [facility] 160 [place] [address] [facility] - [facility] 02/20/24 Penelope Walker, TRISTAN-CRAB FISHERMAN [address] [address] Nurse Practitioner Behavioral Health 07/28/22 documented as of this encounter
--- OUTSIDE RECORDS SUMMARY | 2024-09-16 13:20 | XMS_ITS | Encounter Summary ---
Author Organization [facility] Address [address] [facility] [place] [address] Care Team Providers Care Hide Shaker Name Role Phone Penelope Walker ARCHITECTURAL TECHNICIAN-BLANKET FOLDER Unavailable Blane Beavers DO Primary Care Provider [phone] Penelope Walker ARCHITECTURAL TECHNICIAN-BLANKET FOLDER Unavailable Encounter Details Date Type Department Care Team (Late st Contact Info) Description 08/17/2023 Abstract [facility] [address] [facility] [address] [place] [address] Blane Beavers DO [address] [facility] [address] [place] [address] Social History Tobacco Use Types Packs/Day Years [...] often do you attend chur ch or amish services? 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) Not on file Not on nidia e Not on file documented as of this encounter Plan of Treatment Upcoming Encounters Date Type Department Care Team (Late st Contact Info) Description 09/19/2024 10:00 AM EDT Office [facility] [address] [place] [address] Penelope Walker, ARCHITECTURAL TECHNICIAN-BLANKET FOLDER [address] [place], [place] [id number] documented as of this encounter Visit Diagnoses Not on filedocumented in this encounter Care Teams Hide Shaker Relationship Specialty Start Date End Date Blane Beavers DO [address] [facility] 230 [place] [address] PCP - General Family Medicine 02/09/23 Penelope Walker, TRISTAN-BLANKET FOLDER 112 [facility] 160 [place] [address] [facility] 02/20/24 Penelope Walker, TRISTAN-BLANKET FOLDER [address] [address] Nurse Practitioner Behavioral Health 07/28/22 documented as of this encounter
--- OUTSIDE RECORDS SUMMARY | 2024-09-16 13:20 | XMS_ITS | Clinical Summary ---
Author Organization [facility] Address [address] [place] [address] Care Team Providers Care Master Electrician Name Role Phone ConsueloAlexandreShamir valladaresPenelope Karina CALDERONN-FITNESS PLAN COORDINATOR Unavailable Blane Beavers DO Primary Care Provider Allergies Active Allergy Reactions Criticality Noted Date Comments Etonogestrel-Ethinyl Estradiol Other 07/01 Severe depression Medications SEMAGLUTIDE PO Take by mouth Active sertraline (Zoloft) 50 MG tabletIndicatio ns:Bipolar 2 disorder (HCC) Take 1 tablet (50 mg) by mouth Daily 90 tablet 5 Active lamoTRIgine (LaMICtal) 150 MG tabletIndicatio ns:Bipolar 2 disorder (HCC) Take 1 tablet (150 mg) by mouth Daily 90 tablet 5 Active Cariprazine HCl (Vraylar) 3 MG capsuleIndicati ons:Bipolar 2 disorder (HCC) Take 1 capsule by mouth Daily 90 capsule 5 12/11/19 25 Active Cariprazine HCl (Vraylar) 3 MG capsuleIndicati ons:Bipolar 2 disorder (HCC) Take 1 capsule by mouth Daily 90 capsule 5 09/12/19 25 Discontinu ed(Reorder ) Active Problems Problem Noted Date Diagnosed Date Abnormal cytological finding s in specimens from other organs, systems and tissues 02/08/2023 Cannabis abuse 02/08/2023 Cervical high risk HPV (human papillomavirus) te st positive 02/08/2023 Depression 02/08/2023 Disorder of female genital organ 02/08/2023 Menstrual disorder 02/08/2023 Bipolar 2 disorder 07/01/2022 Anxiety 07/01/2022 Encounters Date Type Department Care Team Description 09/11/2024 Refill [facility] [address] [place] [address] Penelope Walker, MUNICIPAL CLERK-FITNESS PLAN COORDINATOR Bipolar 2 disorder (HCC) 09/09/2024 Abstract [facility] [address] [place] [address] Blane Beavers, DO 09/09/2024 Abstract [facility] [address] [place] [address] Blane Beavers, DO 09/09/2024 Abstract [facility] [address] [place] [address] Blane Beavers, DO from Last 3 Months Immunizations Immunization [...] How often do you attend chur or bahai services? Never 02/09/2023 Do you belong to any clubs o r organizations such as yazdanism groups, unions, fraternal or athletic groups, or [...] Recorded Patient Health Questionnaire-2 Score 1 12/17/2023 [facility]at ional [facility] - Occupational Stress Questionnaire Answer Date Recorded [...] Master's degree (e.g., MA, MS, Jennifer, MEd, VICE PRESIDENT MEDICAL AFFAIRS, [place]) 03/19/2023 Comments Unknown Sex and Gender [...] 09/19/2024 10:00 AM EDT Office Visit [facility] [address] [place] [address] Penelope Walker, MUNICIPAL CLERK-FITNESS PLAN COORDINATOR [address] [place] [address] Health Maintenance Due Date Last Done Comments Influenza Vaccine (#1) 2024 4, 12/22/2022, 11/25/2019, Additional history exists Insurance [facility] [employer] [employer] Care Teams Master Electrician Relationship Specialty Start Date End Date Blane Beavers DO [address] [facility] 230 [place] [address] PCP - General Family Medicine 02/09/23 Penelope Walker, MUNICIPAL CLERK-FITNESS PLAN COORDINATOR [address] [facility] 160 [place] [address] Nurse Practitioner Behavioral Health 07/28/22
--- OUTSIDE RECORDS SUMMARY | 2024-09-16 13:20 | XMS_ITS | Encounter Summary ---
Author Organization [facility] Address [address] [place] [address] Care Team Providers Care Vascular Technologist Name Role Phone Penelope Walker MAT WORKER-CASH APPLICATIONS MANAGER Unavailable Blane Beavers DO Primary Care Provider [phone] Penelope Walker MAT WORKER-CASH APPLICATIONS MANAGER Unavailable Encounter Details Date Type Department Care Team (Late st Contact Info) Description 08/17/2023 Abstract [facility] [address] [facility] [address] [place] [address] Blane Beavers DO [address] [facility] [address] [place] [address] Social History Tobacco Use Types Packs/Day Years [...] often do you attend chur ch or cheondoism services? Never 02/09/2023 Do you belong to any clubs o r organizations such as latter day groups, unions, fraternal or athletic groups, or [...] Recorded Patient Health Questionnaire-2 Score 0 04/13/2023 [facility] of Occupat ional Health - Occupational [...] place to sleep or slept in a retirement (including now)? No 02/09/2023 Education Answer Date Recorded What is the highest level of school you have completed or the highest degree you have received? 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 on file Not on nidia e Not on file documented as of this encounter Plan of Treatment Upcoming Encounters Date Type Department Care Team (Late st Contact Info) Description 09/19/2024 10:00 AM EDT Office [facility] [address] [place] [address] Penelope Walker, MAT WORKER-CASH APPLICATIONS MANAGER [address] [place], [place] [phone] documented as of this encounter Visit Diagnoses Not on filedocumented in this encounter Care Teams Vascular Technologist Relationship Specialty Start Date End Date Blane Beavers DO [address] [facility] 230 [place] [address] PCP - General Family Medicine 02/09/23 Penelope Walker, TRISTAN-CASH APPLICATIONS MANAGER 112 [facility] 160 [place] [address] [facility] 02/20/24 Penelope Walker, TRISTAN-CASH APPLICATIONS MANAGER [address] [address] Nurse Practitioner Behavioral Health 07/28/22 documented as of this encounter
--- OUTSIDE RECORDS SUMMARY | 2024-09-16 13:20 | XMS_ITS | Encounter Summary ---
Author Organization [employer] tem Address [id number] [address] [place] [address] Care Team Providers Care Continuous Still Operator Name Role Phone Unavailable Primary Care Provider Unavailabl e Encounter Details Date Type Department Care Team (Late st Contact Info) Description 05/20/2020 Telephone Maternal- Medicine at [facility] [address] [place] [address] Charley Reyes LPN Social History [...]
--- OUTSIDE RECORDS SUMMARY | 2024-09-16 13:20 | XMS_ITS | Encounter Summary ---
Author Organization [facility] Address [address] [facility] [place] [address] Care Team Providers Care House Painting Instructor Name Role Phone Penelope Walker FIRST AID OFFICER-LOCKSTITCHER Unavailable Blane Beavers DO Primary Care Provider +[phone]- [phone] Penelope Walker FIRST AID OFFICER-LOCKSTITCHER Unavailable Encounter Details Date Type Department Care Team (Late st Contact Info) Description 08/17/2023 Abstract [facility] [address] [facility] [address] [place] [address] Blane Beavers DO [address] [facility] [address] [place] [address] Social History Tobacco Use Types Packs/Day Years [...] often do you attend chur ch or advent services? 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) Not on file Not on nidia e Not on file documented as of this encounter Plan of Treatment Upcoming Encounters Date Type Department Care Team (Late st Contact Info) Description 09/19/2024 10:00 AM EDT Office [facility] [address] [place] [address] Penelope Walker, FIRST AID OFFICER-LOCKSTITCHER [address] [place], [place] [id number] documented as of this encounter Visit Diagnoses Not on filedocumented in this encounter Care Teams House Painting Instructor Relationship Specialty Start Date End Date Blane Beavers DO [address] [facility] 230 [place] [address] PCP - General Family Medicine 02/09/23 Penelope Walker, TRISTAN-LOCKSTITCHER 112 [facility] 160 [place] [address] [facility] 02/20/24 Penelope Walker, TRISTAN-LOCKSTITCHER [address] [address] Nurse Practitioner Behavioral Health 07/28/22 documented as of this encounter
--- OUTSIDE RECORDS SUMMARY | 2024-09-16 13:20 | XMS_ITS | Encounter Summary ---
Author Organization [facility] Address [address] [facility] [place] [address] Care Team Providers Care Brokerage Purchase And Sale Clerk Name Role Phone Penelope Walker PROPERTY MANAGEMENT SUPERVISOR-ADVERTISER Unavailable Blane Beavers DO Primary Care Provider +[phone]- [phone] Penelope Walker PROPERTY MANAGEMENT SUPERVISOR-ADVERTISER Unavailable Encounter Details Date Type Department Care Team (Late st Contact Info) Description 08/17/2023 Abstract [facility] [address] [facility] [address] [place] [address] Blane Beavers DO [address] [facility] [address] [place] [address] Social History Tobacco Use Types Packs/Day Years [...] often do you attend chur ch or congregation services? Never 02/09/2023 Do you belong to any clubs o r organizations such as scientology groups, unions, fraternal or athletic groups, or [...] Recorded Patient Health Questionnaire-2 Score 0 04/13/2023 [facility] of Occupat ional Health - [...] place to sleep or slept in a mcc (including now)? No 02/09/2023 Education Answer Date Recorded What is the highest level of school you have completed or the highest degree you have received? 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 on file Not on nidia e Not on file documented as of this encounter Plan of Treatment Upcoming Encounters Date Type Department Care Team (Late st Contact Info) Description 09/19/2024 10:00 AM EDT Office [facility] [address] [place] [address] Penelope Walker, PROPERTY MANAGEMENT SUPERVISOR-ADVERTISER [address] [place], [place] [id number] documented as of this encounter Visit Diagnoses Not on filedocumented in this encounter Care Teams Brokerage Purchase And Sale Clerk Relationship Specialty Start Date End Date Blane Beavers DO [address] [facility] 230 [place] [address] PCP - General Family Medicine 02/09/23 Penelope Walker, TRISTAN-ADVERTISER 112 [facility] 160 [place] [address] [facility] 02/20/24 Penelope Walker, TRISTAN-ADVERTISER [address] [address] Nurse Practitioner Behavioral Health 07/28/22 documented as of this encounter
--- OUTSIDE RECORDS SUMMARY | 2024-09-16 13:20 | XMS_ITS | Encounter Summary ---
Author Organization [facility] Address [address] [facility] [place] [address] Care Team Providers Care Assistant Administrator Name Role Phone Penelope Walker FIRE WATCHMAN-FINAL ASSEMBLY INSPECTOR Unavailable Blane Beavers DO Primary Care Provider +[phone]- [phone] Penelope Walker FIRE WATCHMAN-FINAL ASSEMBLY INSPECTOR Unavailable Encounter Details Date Type Department Care Team (Late st Contact Info) Description 08/17/2023 Abstract [facility] [address] [facility] [address] [place] [address] Blane Beavers DO [address] [facility] [address] [place] [address] Social History Tobacco Use Types Packs/Day Years [...] often do you attend chur ch or jewish services? Never 02/09/2023 Do you belong to any clubs o r organizations such as christianity groups, unions, fraternal or athletic groups, or [...] Recorded Patient Health Questionnaire-2 Score 0 04/13/2023 [facility] of Occupat ional Health - [...] place to sleep or slept in a skilled nursing (including now)? No 02/09/2023 Education Answer Date Recorded What is the highest level of school you have completed or the highest degree you have received? 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 on file Not on nidia e Not on file documented as of this encounter Plan of Treatment Upcoming Encounters Date Type Department Care Team (Late st Contact Info) Description 09/19/2024 10:00 AM EDT Office [facility] [address] [place] [address] Penelope Walker, FIRE WATCHMAN-FINAL ASSEMBLY INSPECTOR [address] [place], [place] [phone] documented as of this encounter Visit Diagnoses Not on filedocumented in this encounter Care Teams Assistant Administrator Relationship Specialty Start Date End Date Blane Beavers DO [address] [facility] 230 [place] [address] PCP - General Family Medicine 02/09/23 Penelope Walker, TRISTAN-FINAL ASSEMBLY INSPECTOR 112 [facility] 160 [place] [address] [facility] 02/20/24 Penelope Walker, TRISTAN-FINAL ASSEMBLY INSPECTOR [address] [address] Nurse Practitioner Behavioral Health 07/28/22 documented as of this encounter
--- OUTSIDE RECORDS SUMMARY | 2024-09-16 13:20 | XMS_ITS | Encounter Summary ---
Author Organization [facility] Address [address] [facility] [place] [address] Care Team Providers Care Industrial Hygiene Technician Name Role Phone Penelope Walker ASSOCIATE PROFESSOR OF ART HISTORY-SALES OFFICE ADMINISTRATOR Unavailable Blane Beavers DO Primary Care Provider [phone]- [phone] Penelope Walker ASSOCIATE PROFESSOR OF ART HISTORY-SALES OFFICE ADMINISTRATOR Unavailable Encounter Details Date Type Department Care Team (Late st Contact Info) Description 08/17/2023 Abstract [facility] [address] [facility] [address] [place] [address] Blane Beavers DO [address] [facility] [address] [place] [address] Social History Tobacco Use Types Packs/Day Years [...] often do you attend chur ch or yazidism services? Never 02/09/2023 Do you belong to any clubs o r organizations such as anabaptism groups, unions, fraternal or athletic groups, or [...] Recorded Patient Health Questionnaire-2 Score 0 04/13/2023 [facility] of Occupat ional Health - Occupational [...] place to sleep or slept in a chcf (including now)? No 02/09/2023 Education Answer Date Recorded What is the highest level of school you have completed or the highest degree you have received? 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 Not on nidia e Not on file documented as of this encounter Plan of Treatment Upcoming Encounters Date Type Department Care Team (Late st Contact Info) Description 09/19/2024 10:00 AM EDT Office [facility] [address] [place] [address] Penelope Walker, ASSOCIATE PROFESSOR OF ART HISTORY-SALES OFFICE ADMINISTRATOR [address] [place], [place] [phone] documented as of this encounter Visit Diagnoses Not on filedocumented in this encounter Care Teams Industrial Hygiene Technician Relationship Specialty Start Date End Date Blane Beavers DO [address] [facility] 230 [place] [address] PCP - General Family Medicine 02/09/23 Penelope Walker, TRISTAN-SALES OFFICE ADMINISTRATOR 112 [facility] 160 [place] [address] [facility] 02/20/24 Penelope Walker, TRISTAN-SALES OFFICE ADMINISTRATOR [address] [address] Nurse Practitioner Behavioral Health 07/28/22 documented as of this encounter
--- OUTSIDE RECORDS SUMMARY | 2024-09-16 13:20 | XMS_ITS | Encounter Summary ---
Author Organization [employer] Address [id number] [address] [place] [address] Care Team Providers Care Refrigeration Tech Name Role Phone Unavailable Primary Care Provider Unavailabl e Encounter Details Date Type Department Care Team (Late st Contact Info) Description 05/20/2020 Orders Only Maternal- Medicine at [facility] [address] [place] [address] External, Scanning Provider Social History [...] more fetus (05/17/2020) Anatomical Region Laterality Modality OB-ELECTRICAL CAD DESIGNER Ultrasound Narrative 05/17/2020 See attached report us Scanning Provider External IMG US ORDERABLES Philippe richi Result - Final * Ultrasound limited 1 or more fetus (04/19/2020) Anatomical Region Laterality Modality OB-ELECTRICAL CAD DESIGNER Ultrasound Narrative 04/19/2020 See attached report us Scanning Provider External IMG US ORDERABLES Philippe richi Result - Final * Ultrasound limited 1 or more fetus (01/30/2020) Anatomical Region Laterality Modality OB-ELECTRICAL CAD DESIGNER Ultrasound Narrative 01/30/2020 See attached report us Scanning Provider External IMG US ORDERABLES Philippe richi Result - Final documented in this encounter Visit Diagnoses Not on filedocumented in this encounter
--- OUTSIDE RECORDS SUMMARY | 2024-09-16 13:20 | XMS_ITS | Encounter Summary ---
Author Organization [facility] Address [address] [place] [address] Care Team Providers Care Electrical Accessories I Assembler Name Role Phone Penelope Walker CHANNEL MAN-APPLICATION SUPPORT Unavailable Blane Beavers DO Primary Care Provider [phone] Penelope Walker CHANNEL MAN-APPLICATION SUPPORT Unavailable Encounter Details Date Type Department Care Team (Late st Contact Info) Description 08/17/2023 Abstract [facility] [address] [facility] [address] [place] [address] Blane Beavers DO [address] [facility] [address] [place] [address] Social History Tobacco Use Types Packs/Day Years [...] any clubs o r organizations such as presybeterian groups, unions, fraternal or athletic groups, or [...] Recorded Patient Health Questionnaire-2 Score 0 04/13/2023 [facility] of Occupat ional Health - Occupational [...] place to sleep or slept in a jail (including now)? No 02/09/2023 Education Answer Date Recorded What is the highest level of school you have completed or the highest degree you have received? 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 Not on nidia e Not on file documented as of this encounter Plan of Treatment Upcoming Encounters Date Type Department Care Team (Late st Contact Info) Description 09/19/2024 10:00 AM EDT Office [facility] [address] [place] [address] Penelope Walker, CHANNEL MAN-APPLICATION SUPPORT [address] [place], [place] [phone] documented as of this encounter Visit Diagnoses Not on filedocumented in this encounter Care Teams Electrical Accessories I Assembler Relationship Specialty Start Date End Date Blane Beavers DO [address] [facility] 230 [place] [address] PCP - General Family Medicine 02/09/23 Penelope Walker, TRISTAN-APPLICATION SUPPORT 112 [facility] 160 [place] [address] [facility] 02/20/24 Penelope Walker, TRISTAN-APPLICATION SUPPORT [address] [address] Nurse Practitioner Behavioral Health 07/28/22 documented as of this encounter
--- OUTSIDE RECORDS SUMMARY | 2024-09-16 13:20 | XMS_ITS | Encounter Summary ---
Author Organization [facility] Address [address] [facility] [place] [address] Care Team Providers Care Cutlet Maker Pork Name Role Phone Penelope Walker MANAGER ENT-FUEL CELL ASSEMBLER Unavailable Blane Beavers DO Primary Care Provider [phone] Encounter Details Date Type Department Care Team (Late st Contact Info) Description 09/09/2024 Abstract [facility] [address] [facility] [address] [place] [address] Blane Beavers DO [address] [facility] [address] [place] [address] Social History Tobacco Use Types [...] How often do you attend chur or jain services? Never 02/09/2023 Do you belong to any clubs o r organizations such as buddhist groups, unions, fraternal or athletic groups, or [...] Recorded Patient Health Questionnaire-2 Score 1 12/17/2023 [facility] of Occupat ional Health - Occupational Stress [...] Master's degree (e.g., MA, MS, Jennifer, MEd, PAYROLL EXAMINER, NILAM) 03/19/2023 Comments Unknown Sex and Gender [...] 09/19/2024 10:00 AM EDT Office Visit [facility] [address] [place] [address] Penelope Walker, MANAGER ENT-FUEL CELL ASSEMBLER [address] [place] [address] documented as of this encounter Visit Diagnoses Not on filedocumented in this encounter Care Teams Cutlet Maker Pork Relationship Specialty Start Date End Date Blane Beavers DO [address] [facility] 230 [place] [address] PCP - General Family Medicine 02/09/23 Penelope Walker, MANAGER ENT-FUEL CELL ASSEMBLER 112 [facility] 160 [place] [address] Nurse Practitioner Behavioral Health 07/28/22 documented as of this encounter
--- OUTSIDE RECORDS SUMMARY | 2024-09-16 13:21 | XMS_ITS | Encounter Summary ---
Author Organization [facility] Address [address] [place] [address] Care Team Providers Care Stamp Presser Name Role Phone Abrahan Merrill MD Primary Care Provider + [phone] Penelope Walker WIDTH STRIPPER-CHAIN MORTISER OPERATOR Unavailable Blane Beavers DO Primary Care Provider [phone] Penelope Walker WIDTH STRIPPER-CHAIN MORTISER OPERATOR Unavailable Encounter Details Date Type Department Care Team (Late st Contact Info) Description 01/29/2023 [facility] [address] [facility] [address] [place] [address] Blane Beavers DO [address] [facility] 230 [place] [address] Social History Tobacco Use Types [...] Upcoming Encounters Date Type Department Care Team ([facility] st Contact Info) Description 09/19/2024 10:00 AM EDT Office Visit [facility] [address] [facility] [address] [place] [address] Penelope Walker WIDTH STRIPPER-CHAIN MORTISER OPERATOR 112 [facility] 160 [place] [address] documented as of this encounter Visit Diagnoses Not on filedocumented in this encounter Care Teams Stamp Presser Relationship Specialty Start Date End Date Abrahan Merrill MD [address] [place] [address] PCP - General Family Medicine 07/28/22 02/08/23 Blane Beavers DO [address] [place] [address] PCP - General Family Medicine 02/09/23 Penelope Walker WIDTH STRIPPER-CHAIN MORTISER OPERATOR 112 [facility] 160 [place] [address] PCP - [employer] 02/20/24 Penelope Walker WIDTH STRIPPER-CHAIN MORTISER OPERATOR 112 [facility] 160 [place] [address] Nurse Practitioner Behavioral Health 07/28/22 documented as of this encounter
--- OUTSIDE RECORDS SUMMARY | 2024-09-16 13:21 | XMS_ITS | Encounter Summary ---
Author Organization [facility] Address [address] [facility] [place] [address] Care Team Providers Care Lead Burner Helper Name Role Phone Penelope Walker TERADATA ARCHITECT-SCHOOL OCCUPATIONAL THERAPIST Unavailable Blane Beavers DO Primary Care Provider [phone] Penelope Walker TERADATA ARCHITECT-SCHOOL OCCUPATIONAL THERAPIST Unavailable Encounter Details Date Type Department Care Team (Late st Contact Info) Description 08/17/2023 Abstract [facility] [address] [facility] [address] [place] [address] Blane Beavers DO [address] [facility] [address] [place] [address] Social History Tobacco Use Types Packs/Day Years [...] often do you attend chur ch or restorationism services? 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 on file Not on nidia e Not on file documented as of this encounter Plan of Treatment Upcoming Encounters Date Type Department Care Team (Late st Contact Info) Description 09/19/2024 10:00 AM EDT Office [facility] [address] [place] [address] Penelope Walker, TERADATA ARCHITECT-SCHOOL OCCUPATIONAL THERAPIST [address] [place], [place] [phone] documented as of this encounter Visit Diagnoses Not on filedocumented in this encounter Care Teams Lead Burner Helper Relationship Specialty Start Date End Date Blane Beavers DO [address] [facility] 230 [place] [address] PCP - General Family Medicine 02/09/23 Penelope Walker, TRISTAN-SCHOOL OCCUPATIONAL THERAPIST 112 [facility] 160 [place] [address] [facility] 02/20/24 Penelope Walker, TRISTAN-SCHOOL OCCUPATIONAL THERAPIST [address] [address] Nurse Practitioner Behavioral Health 07/28/22 documented as of this encounter
--- OUTSIDE RECORDS SUMMARY | 2024-09-16 13:21 | XMS_ITS | Clinical Summary ---
Author Organization [email or web address] Address [id number] [address] [place] [address] Care Team Providers Care Floor Hand Name Role Phone Unavailable Primary Care Provider [...] Most Recently Relevant to Health Maintenance Insurance [facility] MEDICAID Member Subscriber Plan / Payer (Ef fective 2022-Present) Name:Mahan, Emma Member ID:Not on file Relation to Subscriber:Self Name:Emma Mahan Subscriber ID:Not on file Payer ID:Not on file Group ID:Not on file Type:Not on file Address: [facility] [id number] [place] [id number] Advance Directives * Full Code (Latest Code Status on File) Date Activated Date Inactivated Comments 09/07/2017 8:59 PM 09/07/2017 11:24 PM
--- OUTSIDE RECORDS SUMMARY | 2024-09-16 13:21 | XMS_ITS | Encounter Summary ---
Author Organization [facility] Address [address] [place] [address] Care Team Providers Care Director Of Ancillary Services Name Role Phone Penelope Walker DRY DRUG WORKER-LIGHTOUT EXAMINER Unavailable Blane Beavers DO Primary Care Provider [phone] Encounter Details Date Type Department Care Team (Late st Contact Info) Description 09/09/2024 Abstract [facility] [address] [facility] [address] [place] [address] Blane Beavers DO [address] [facility] [address] [place] [address] Social History Tobacco Use Types [...] How often do you attend chur or jehovah's witness services? Never 02/09/2023 Do you belong to any clubs o r organizations such as pentecostalism groups, unions, fraternal or athletic groups, or [...] Recorded Patient Health Questionnaire-2 Score 1 12/17/2023 [facility] of Occupat ional Health - Occupational Stress [...] place to sleep or slept in a prison (including now)? No 02/09/2023 Education Answer Date Recorded What is the highest level of school you have completed or the highest degree you have received? Master's degree (e.g., MA, MS, Jennifer, MEd, IRRIGATIONIST DESIGNER, NILAM) 03/19/2023 Comments Unknown Sex and Gender [...] Health [address] [place] [address] Penelope Walker, DRY DRUG WORKER-LIGHTOUT EXAMINER [address] [place] [address] documented as of this encounter Visit Diagnoses Not on filedocumented in this encounter Care Teams Director Of Ancillary Services Relationship Specialty Start Date End Date Blane Beavers DO [address] [facility] 230 [place] [address] PCP - General Family Medicine 02/09/23 Penelope Walker, DRY DRUG WORKER-LIGHTOUT EXAMINER 112 [facility] 160 [place] [address] Nurse Practitioner Behavioral Health 07/28/22 documented as of this encounter
--- OUTSIDE RECORDS SUMMARY | 2024-09-16 13:21 | XMS_ITS | Encounter Summary ---
Author Organization [facility] Address [address] [facility] [place] [address] Care Team Providers Care Turfgrass Technician Name Role Phone Penelope Walker HOB GRINDER-ALUMNI RELATIONS COORDINATOR Unavailable Blane Beavers DO Primary Care Provider +[phone] Penelope Walker HOB GRINDER-ALUMNI RELATIONS COORDINATOR Unavailable Reason for Visit * Reason Comments Med Refill Encounter Details Date Type Department Care Team (Late st Contact Info) Description 07/15/2023 Refill [facility] [address] [facility] [address] [place] [id number] Penelope Walker, HOB GRINDER-ALUMNI RELATIONS COORDINATOR [address] [place] [address] Bipolar 2 disorder (HCC) Social History Tobacco [...] How often do you attend chur or orthodoxy services? 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 on file Not on nidia e Not on file documented as of this encounter Plan of Treatment Upcoming Encounters Date Type Department Care Team (Late st Contact Info) Description 09/19/2024 10:00 AM EDT Office Visit [facility] [address] [place] [address] Penelope Walker, HOB GRINDER-ALUMNI RELATIONS COORDINATOR [address] [place] [address] documented as of this encounter Visit Diagnoses Diagnosis Bipolar 2 disorder (HCC) Other bipolar disorders documented in this encounter Care Teams Turfgrass Technician Relationship Specialty Start Date End Date Blane Beavers DO [address] [place] [address] PCP - General Family Medicine 02/09/23 Penelope Walker, HOB GRINDER-ALUMNI RELATIONS COORDINATOR [address] [facility] 160 [place] [address] PCP - [facility] 02/20/24 Penelope Walker, HOB GRINDER-ALUMNI RELATIONS COORDINATOR [address] [facility] 160 [place] [address] Nurse Practitioner Behavioral Health 07/28/22 documented as of this encounter
--- OUTSIDE RECORDS SUMMARY | 2024-09-16 13:21 | XMS_ITS | Encounter Summary ---
Author Organization [facility] Address [address] [place] [address] Care Team Providers Care Facilities Officer Name Role Phone Penelope Walker DUNGEON MASTER-LOCAL COMPANY INTERMODAL TRUCK DRIVER Unavailable Blane Beavers DO Primary Care Provider + [phone] Reason for Visit * Reason Onset Date Comments Med Refill 09/11/2024 Encounter Details Date Type Department Care Team (Late st Contact Info) Description 09/11/2024 Refill [facility] 112 [facility] 160 [place] [phone] Penelope Walker, DUNGEON MASTERLOCAL COMPANY INTERMODAL TRUCK DRIVER 112 [facility] 160 [place] [address] Bipolar 2 disorder (HCC) Social History Tobacco [...] often do you attend chur ch or druze services? Never 02/09/2023 Do you belong to [...] Recorded Patient Health Questionnaire-2 Score 1 12/17/2023 [facility] of Occupat ional Health - Occupational Stress [...] place to sleep or slept in a snf (including now)? No 02/09/2023 Education Answer Date Recorded What is the highest level of school you have completed or the highest degree you have received? Master's degree (e.g., MA, MS, Jennifer, MEd, NEW CAR SALESPERSON, NILAM) 03/19/2023 Comments Unknown Sex and Gender [...] Health [address] [place] [address] Penelope Walker, DUNGEON MASTER-LOCAL COMPANY INTERMODAL TRUCK DRIVER [address] [place] [address] documented as of this encounter Visit Diagnoses Diagnosis Bipolar 2 disorder (HCC) Other bipolar disorders documented in this encounter Care Teams Facilities Officer Relationship Specialty Start Date End Date Blane Beavers DO [address] [facility] 230 [place] [address] PCP - General Family Medicine 02/09/23 Penelope Walker, DUNGEON MASTER-LOCAL COMPANY INTERMODAL TRUCK DRIVER 112 [facility] 160 [place] [address] Nurse Practitioner Behavioral Health 07/28/22 documented as of this encounter
--- OUTSIDE RECORDS SUMMARY | 2024-09-16 13:21 | XMS_ITS | Encounter Summary ---
Author Organization [facility] Address [address] [facility] [place] [address] Care Team Providers Care Musical Instruments Assembler Name Role Phone Penelope Walker DIRECTOR HR COMMUNICATIONS-SHUTTLE HAND Unavailable Blane Beavers DO Primary Care Provider +1 [phone] Encounter Details Date Type Department Care Team (Late st Contact Info) Description 09/09/2024 Abstract [facility] [address] [facility] [address] [place] [address] Blane Beavers DO [address] [facility] [address] [place] [address] Social History Tobacco Use Types [...] How often do you attend chur or protestant services? Never 02/09/2023 Do you belong to any clubs o r organizations such as holiness groups, unions, fraternal or athletic groups, or [...] Recorded Patient Health Questionnaire-2 Score 1 12/17/2023 [facility] of Occupat ional Health - Occupational Stress [...] Master's degree (e.g., MA, MS, Jennifer, MEd, LPN RN, NILAM) 03/19/2023 Comments Unknown Sex and Gender [...] [facility] [address] [facility] [address] [place] [address] Penelope Walker, DIRECTOR HR COMMUNICATIONS-SHUTTLE HAND [address] [place] [address] documented as of this encounter Visit Diagnoses Not on filedocumented in this encounter Care Teams Musical Instruments Assembler Relationship Specialty Start Date End Date Blane Beavers DO [address] [place] [address] PCP - General Family Medicine 02/09/23 Penelope Walker, DIRECTOR HR COMMUNICATIONS-SHUTTLE HAND [address] [facility] 160 [place] [address] Nurse Practitioner Behavioral Health 07/28/22 documented as of this encounter
--- OUTSIDE RECORDS SUMMARY | 2024-09-16 13:21 | XMS_ITS | Encounter Summary ---
Author Organization [facility] Address [address] [facility] [place] [address] Care Team Providers Care Medication Aid Name Role Phone Penelope Walker MANAGER OF HUMAN RESOURCES-ASSIGNMENT EDITOR Unavailable Blane Beavers DO Primary Care Provider [phone] Penelope Walker MANAGER OF HUMAN RESOURCES-ASSIGNMENT EDITOR Unavailable Encounter Details Date Type Department Care Team (Late st Contact Info) Description 08/17/2023 Abstract [facility] [address] [facility] [address] [place] [address] Blane Beavers DO [address] [facility] [address] [place] [address] Social History Tobacco Use Types Packs/Day Years [...] often do you attend chur ch or sabianism services? 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 on file Not on nidia e Not on file documented as of this encounter Plan of Treatment Upcoming Encounters Date Type Department Care Team (Late st Contact Info) Description 09/19/2024 10:00 AM EDT Office Visit [facility] [address] [place] [address] Penelope Walker, MANAGER OF HUMAN RESOURCES-ASSIGNMENT EDITOR [address] [place], [place] [phone] documented as of this encounter Visit Diagnoses Not on filedocumented in this encounter Care Teams Medication Aid Relationship Specialty Start Date End Date Blane Beavers DO [address] [facility] 230 [place] [address] PCP - General Family Medicine 02/09/23 Penelope Walker, TRISTAN-ASSIGNMENT EDITOR 112 [facility] 160 [place] [address] [facility]/24 Penelope Walker, TRISTAN-ASSIGNMENT EDITOR [address] [address] Nurse Practitioner Behavioral Health 07/28/22 documented as of this encounter
== END 2024-09-16 13:19 | disposition home or self-care (01) ==
LOC: PST 13:18
PROVIDERS: PCP Family Medicine; Visit Provider Urology
DX: Z01.818 Encounter for other preprocedural examination (principal); N20.0 Calculus of kidney

== ENCOUNTER 2024-09-17 00:27 | Inpatient (IN) | payer OTHER, SELFPAY ==
--- OUTSIDE RECORDS SUMMARY | 2018-09-25 09:00 | XMS_ITS | Continuity of Care Document ---
Author Organization [facility] [employer] [facility] Address [address] [facility] [place] [address] Phone Care Team Providers Care Dag Sprayer Name Role Phone Unavailable Unavailable Unavailable Procedures [...] Immunity Screen, ACIF. @ Test Performed By: [employer] [facility] Boby Casey M.D., Ph.D., Sand Plant Attendant [address] [place] [phone] [facility] #[id number] Panel Description: Mumps IgG Ab Final SPECIMEN: [...] Diagnoses Date Provider Providers Copied on Encounter [facility], [address] [facility], [place], [place], [id number], [place] tel:[phone] [facility] No Information No Information Family History Family Member Type Diagnosis Age At Onset No Information Payers Payer name Insurance type Covered libertarian ID Authoriza tion(s) No Information Social History [...]
--- OUTSIDE RECORDS SUMMARY | 2020-09-09 09:48 | XMS_ITS | Continuity of Care Document ---
Author Organization [facility] Address [address] [place] [address] Phone Care Team Providers Care Motor Coach Bus Driver Name Role Phone Dee Gonzalez Unavailable Unavaila [...] Copied on Encounter [facility], [address] [place], [place], [id number], [place] tel:[phone] [facility] No Information 1 Maykel Price. [address] [place], [place], [address] , [place]. tel:[phone] [facility], [address] [place], [place], [address], [place] tel:[phone] [facility] No Information 0 Caio Geller. [address] [place], [place], [address] , [place]. tel: [phone] [facility], [address] [place], [place], [address], [place] tel:[phone] [facility] for [facility] [address] [place], [place], [address] , [place]. tel: [phone] [facility], [address] [place] [address], [id number], [place] tel:[phone] [facility] Encounter for screening for respiratory tuberculosis 9 [facility] DO Gauthier. [address] [place], [place], [address] , [place]. tel: [phone] OFFICE/OUTPAT IENT VISIT, EST [facility], [address] [place], [place], [address], [place] tel:[phone] [facility] Initial Visit (chief complaint) control (chief complaint) Gynecological ExaminationOther specified contraceptive managementNeoplasm of uncertain behavior of other and unspecified female genital organs 4 [facility] [address] [place], [place], [address] , [place]. tel: [phone] Family History Family Member Type Diagnosis Age At Onset Mother Problem (finding) Alive and well Paternal grandfather Problem (finding) malignant neopl asm of lung Father Problem (finding) Alive and well Immunizations Vaccine Date Status Comments Flulaval/ Fluarix administered Source: Ne w Immunization Record Influenza administered Source: New Imm unization Record Tdap (Boostrix) administered Source: New Immunization Record Payers Payer name Insurance type Covered alliance party ID Authoriza tidaniel(s) [place] [facility]FC 190 [id number] Medicaid Wrap - [facility] [place] [id number] [place] [employer] [place] 190 [id number] [place] [employer] [place] 190 [id number] Medicaid Wrap - [facility] [place] [id number] Social History Type Description Quantity Date Captured [...]
[2024-09-17] VITALS (8 sets, daily range): BP systolic 102–136; BP diastolic 61–86; PULSE 84–111; TEMP 36.5–37.8; O2SAT 92–97; BMI 32.9; BMI 33.6
--- OUTSIDE RECORDS SUMMARY | 2024-09-17 00:43 | XMS_ITS | Encounter Summary ---
Author Organization [facility] Address [address] [facility] [place] [address] Care Team Providers Care Streetcar Motorman Name Role Phone Penelope Walker POTTERY DECORATOR-FRAMEMAN Unavailable Blane Beavers DO Primary Care Provider [phone] Penelope Walker POTTERY DECORATOR-FRAMEMAN Unavailable Encounter Details Date Type Department Care Team (Late st Contact Info) Description 08/17/2023 Abstract [facility] [address] [facility] [address] [place] [address] Blane Beavers DO [address] [facility] [address] [place] [address] Social History Tobacco Use Types Packs/Day Years [...] often do you attend chur ch or zoroastrian services? 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 on file Not on nidai e Not on file documented as of this encounter Plan of Treatment Upcoming Encounters Date Type Department Care Team (Late st Contact Info) Description 09/19/2024 10:00 AM EDT Office Visit [facility] [address] [place] [address] Penelope Walker, POTTERY DECORATOR-FRAMEMAN [address] [place], [place] [id number] documented as of this encounter Visit Diagnoses Not on filedocumented in this encounter Care Teams Streetcar Motorman Relationship Specialty Start Date End Date Blane Beavers DO [address] [facility] 230 [place] [address] PCP - General Family Medicine 02/09/23 Penelope Walker, TRISTAN-FRAMEMAN [address] [facility] 160 [place] [address] [facility] 02/20/24 Penelope Walker, TRISTAN-FRAMEMAN [address] [address] Nurse Practitioner Behavioral Health 07/28/22 documented as of this encounter
--- OUTSIDE RECORDS SUMMARY | 2024-09-17 00:43 | XMS_ITS | Clinical Summary ---
Author Organization [facility] Address [id number] [address] [place] [address] Care Team Providers Care Associate Editor Name Role Phone Unavailable Primary Care Provider [...] Most Recently Relevant to Health Maintenance Insurance [facility] MEDICAID Member Subscriber Plan / Payer (Ef fective 2022-Present) Name:Mahan, Emma Member ID:Not on file Relation to Subscriber:Self Name:Emma Mahan Subscriber ID:Not on file Payer ID:Not on file Group ID:Not on file Type:Not on file Address: [facility] [id number] [place] [id number] Advance Directives * Full Code (Latest Code Status on File) Date Activated Date Inactivated Comments 09/07/2017 8:59 PM 09/07/2017 11:24 PM
--- OUTSIDE RECORDS SUMMARY | 2024-09-17 00:43 | XMS_ITS | Encounter Summary ---
Author Organization [facility] Address [address] [place] [address] Care Team Providers Care Patternmaker Wood Name Role Phone Penelope Walker LABOR TRAINING MANAGER-PROPELLANT CHARGE ZONE ASSEMBLER Unavailable Blane Beavers DO Primary Care Provider [phone] Penelope Walker LABOR TRAINING MANAGER-PROPELLANT CHARGE ZONE ASSEMBLER Unavailable Encounter Details Date Type Department Care Team (Late st Contact Info) Description 08/17/2023 Abstract [facility] [address] [facility] [address] [place] [address] Blane Beavers DO [address] [facility] [address] [place] [address] Social History Tobacco Use Types Packs/Day Years [...] often do you attend chur ch or shinto services? 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 on file Not on nidia e Not on file documented as of this encounter Plan of Treatment Upcoming Encounters Date Type Department Care Team (Late st Contact Info) Description 09/19/2024 10:00 AM EDT Office Visit [facility] [address] [place] [address] Penelope Walker, LABOR TRAINING MANAGER-PROPELLANT CHARGE ZONE ASSEMBLER [address] [place], [place] [phone] documented as of this encounter Visit Diagnoses Not on filedocumented in this encounter Care Teams Patternmaker Wood Relationship Specialty Start Date End Date Blane Beavers DO [address] [place] [address] PCP - General Family Medicine 02/09/23 Penelope Walker, TRISTAN-PROPELLANT CHARGE ZONE ASSEMBLER 112 [facility] 160 [place] [address] [facility] 02/20/24 Penelope Walker, TRISTAN-PROPELLANT CHARGE ZONE ASSEMBLER [address] [address] Nurse Practitioner Behavioral Health 07/28/22 documented as of this encounter
--- OUTSIDE RECORDS SUMMARY | 2024-09-17 00:43 | XMS_ITS | Encounter Summary ---
Author Organization [facility] Address [address] [facility] [place] [address] Care Team Providers Care Sail Lay Out Worker Name Role Phone Penelope Walker PACS ADMINISTRATOR-WOOD MECHANIST Unavailable Blane Beavers DO Primary Care Provider +1 [phone] Encounter Details Date Type Department Care Team (Late st Contact Info) Description 09/09/2024 Abstract [facility] [address] [facility] [address] [place] [address] Blane Beavers DO [address] [facility] [address] [place] [address] Social History Tobacco Use Types [...] How often do you attend chur or hinduism services? Never 02/09/2023 Do you belong to any clubs o r organizations such as mandaen groups, unions, fraternal or athletic groups, or [...] Recorded Patient Health Questionnaire-2 Score 1 12/17/2023 [facility] of Occupat ional Health [...] degree (e.g., MA, MS, Jennifer, MEd, SENIOR QA ENGINEER, NILAM) 03/19/2023 Comments Unknown Sex and Gender [...] Health [address] [place] [address] Penelope Walker, PACS ADMINISTRATOR-WOOD MECHANIST [address] [place] [address] documented as of this encounter Visit Diagnoses Not on filedocumented in this encounter Care Teams Sail Lay Out Worker Relationship Specialty Start Date End Date Blane Beavers DO [address] [facility] 230 [place] [address] PCP - General Family Medicine 02/09/23 Penelope Walker, PACS ADMINISTRATOR-WOOD MECHANIST [address] [facility] 160 [place] [address] Nurse Practitioner Behavioral Health 07/28/22 documented as of this encounter
--- OUTSIDE RECORDS SUMMARY | 2024-09-17 00:43 | XMS_ITS | Encounter Summary ---
Author Organization [facility] Address [address] [facility] [place] [address] Care Team Providers Care Environmental Property Assessor Name Role Phone Penelope Walker ENDOCRINOLOGY TEACHER-ATHLETIC COACH Unavailable Blane Beavers DO Primary Care Provider [phone]- [phone] Penelope Walker ENDOCRINOLOGY TEACHER-ATHLETIC COACH Unavailable Encounter Details Date Type Department Care Team (Late st Contact Info) Description 08/17/2023 Abstract [facility] [address] [facility] [address] [place] [address] Blane Beavers DO [address] [facility] [address] [place] [address] Social History Tobacco Use Types Packs/Day Years [...] Master's degree (e.g., MA, MS, Jennifer, MEd, LEAD PERFORMANCE SUPPORT ANALYST, NILAM) 03/19/2023 Comments Unknown Sex and Gender Information Value Date Recorded Sex Assigned at Not on file Legal Sex Female 6:35 PM EDT Gender Identity Not on file Sexual Orientation Not on file Occupation Industry Job Start Date Job 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 Not on nidia e Not on file documented as of this encounter Plan of Treatment Upcoming Encounters Date Type Department Care Team (Late st Contact Info) Description 09/19/2024 10:00 AM EDT Office Visit [facility] [address] [place] [address] Penelope Walker, ENDOCRINOLOGY TEACHER-ATHLETIC COACH [address] [place], [place] [id number] documented as of this encounter Visit Diagnoses Not on filedocumented in this encounter Care Teams Environmental Property Assessor Relationship Specialty Start Date End Date Blane Beavers DO [address] [facility] 230 [place] [address] PCP - General Family Medicine 02/09/23 Penelope Walker, TRISTAN-ATHLETIC COACH 112 [facility] 160 [place] [address] [facility] Penelope Walker, TRISTAN-ATHLETIC COACH [address] [address] Nurse Practitioner Behavioral Health 07/28/22 documented as of this encounter
--- OUTSIDE RECORDS SUMMARY | 2024-09-17 00:43 | XMS_ITS | Encounter Summary ---
Author Organization [facility] Address [address] [facility] [place] [address] Care Team Providers Care Instructor Creeler Name Role Phone Penelope Walker ACCOUNT EXECUTIVE KEY ACCOUNTS-TONGSMAN Unavailable Blane Beavers DO Primary Care Provider +[phone] Encounter Details Date Type Department Care Team (Late st Contact Info) Description 09/09/2024 Abstract [facility] [address] [facility] [address] [place] [address] Blane Beavers DO [address] [facility] [address] [place] [address] Social History Tobacco Use Types [...] How often do you attend chur or quaker services? Never 02/09/2023 Do you belong to any clubs o r organizations such as pentecostal groups, unions, fraternal or athletic groups, or [...] Recorded Patient Health Questionnaire-2 Score 1 12/17/2023 [facility] of Occupat ional Health - Occupational [...] place to sleep or slept in a long-term (including now)? No 02/09/2023 Education Answer Date Recorded What is the highest level of school you have completed or the highest degree you have received? Master's degree (e.g., MA, MS, Jennifer, MEd, CADET DECK, NILAM) 03/19/2023 Comments Unknown Sex and Gender [...] [address] [place] [address] Penelope Walker, ACCOUNT EXECUTIVE KEY ACCOUNTS-TONGSMAN [address] [place] [address] documented as of this encounter Visit Diagnoses Not on filedocumented in this encounter Care Teams Instructor Creeler Relationship Specialty Start Date End Date Blane Beavers DO [address] [facility] 230 [place] [address] PCP - General Family Medicine 02/09/23 Penelope Walker, ACCOUNT EXECUTIVE KEY ACCOUNTS-TONGSMAN [address] [facility] 160 [place] [address] Nurse Practitioner Behavioral Health 07/28/22 documented as of this encounter
--- OUTSIDE RECORDS SUMMARY | 2024-09-17 00:43 | XMS_ITS | Clinical Summary ---
Author Organization [facility] Address [address] [place] [address] Care Team Providers Care Palliative Care Coordinator Name Role Phone ConsueloAlexandreShamir valladaresPenelope Karina CALDERONN-TRACTOR DRIVER TEAMSTER Unavailable Blane Beavers DO Primary Care Provider [...] Behavioral Health [address] [place] [address] Penelope Walker, PYROMETER MECHANIC-TRACTOR DRIVER TEAMSTER Bipolar 2 disorder (HCC) 09/09/2024 Abstract [facility] [address] [place] [address] Blane Beavers, DO 09/09/2024 Abstract [facility] [address] [place] [address] Blane Beavers, DO 09/09/2024 Abstract [facility] [address] [place] [address] Blane Beavers, DO from Last [...] How often do you attend chur or yazdanism services? Never 02/09/2023 Do you belong to any clubs o r organizations such as shinto groups, unions, fraternal or athletic groups, or [...] Recorded Patient Health Questionnaire-2 Score 1 12/17/2023 [facility] of Occupat ional [facility] - Occupational Stress Questionnaire Answer Date Recorded [...] place to sleep or slept in a alf (including now)? No 02/09/2023 Education Answer Date Recorded What is the highest level of school you have completed or the highest degree you have received? Master's degree (e.g., MA, MS, Jennifer, MEd, OPERATIONS SUPERVISOR CHEMICAL CLEANING, NILAM) 03/19/2023 Comments Unknown Sex and Gender [...] Health [address] [place] [address] Penelope Walker, PYROMETER MECHANIC-TRACTOR DRIVER TEAMSTER [address] [place] [address] Health Maintenance Due Date Last Done Comments Influenza Vaccine (#1) 2024 4, 12/22/2022, 11/25/2019, Additional history exists Insurance [employer] Care Teams Palliative Care Coordinator Relationship Specialty Start Date End Date Blane Beavers DO [address] [place] [address] PCP - General Family Medicine 02/09/23 Penelope Walker, PYROMETER MECHANIC-TRACTOR DRIVER TEAMSTER 112 [facility] 160 [place] [address] Nurse Practitioner Behavioral Health 07/28/22
--- OUTSIDE RECORDS SUMMARY | 2024-09-17 00:43 | XMS_ITS | Encounter Summary ---
Author Organization [facility] Address [address] [place] [place] [address] Care Team Providers Care Ecommerce Analyst Name Role Phone Penelope Walker RETAIL PRESENTATION SPECIALIST-CONTENT CREATION MANAGER Unavailable Blane Beavers DO Primary Care Provider [phone]- [phone] Penelope Walker RETAIL PRESENTATION SPECIALIST-CONTENT CREATION MANAGER Unavailable Encounter Details Date Type Department Care Team (Late st Contact Info) Description 08/17/2023 Abstract [facility] [address] [facility] [address] [address] [place] [address] Blane Beavers DO [address] [facility] [address] [place] [address] Social History Tobacco Use Types Packs/Day Years [...] often do you attend chur ch or yazdanism services? Never 02/09/2023 Do you belong to any clubs o r organizations such as amish groups, unions, fraternal or athletic groups, or [...] Recorded Patient Health Questionnaire-2 Score 0 04/13/2023 [facility] of Occupat ional Health - [...] place to sleep or slept in a care home (including now)? No 02/09/2023 Education Answer Date Recorded What is the highest level of school you have completed or the highest degree you have received? 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 on file Not on ndiia e Not on file documented as of this encounter Plan of Treatment Upcoming Encounters Date Type Department Care Team (Late st Contact Info) Description 09/19/2024 10:00 AM EDT Office [facility] [address] [place] [address] Penelope Walker, RETAIL PRESENTATION SPECIALIST-CONTENT CREATION MANAGER [address] [place], [place] [id number] documented as of this encounter Visit Diagnoses Not on filedocumented in this encounter Care Teams Ecommerce Analyst Relationship Specialty Start Date End Date Blane Beavers DO [address] [facility] 230 [place] [address] PCP - General Family Medicine 02/09/23 Peneolpe Walker, TRISTAN-CONTENT CREATION MANAGER [address] [facility] 160 [place] [address] [facility] 02/20/24 Penelope Walker, TRISTAN-CONTENT CREATION MANAGER [address] [address] Nurse Practitioner Behavioral Health 07/28/22 documented as of this encounter
--- OUTSIDE RECORDS SUMMARY | 2024-09-17 00:43 | XMS_ITS | Encounter Summary ---
Author Organization [facility] Address [address] [place] [address] Care Team Providers Care Round Corner Cutter Operator Name Role Phone Penelope Walker AGRONOMY MANAGER-MOTTLER MACHINE FEEDER Unavailable Blane Beavers DO Primary Care Provider [phone]- [phone] Penelope Walker AGRONOMY MANAGER-MOTTLER MACHINE FEEDER Unavailable Encounter Details Date Type Department Care Team (Late st Contact Info) Description 08/17/2023 Abstract [facility] [address] [place] [address] Blane Beavers DO [address] [facility] [address] [place] [address] Social History Tobacco Use Types Packs/Day Years [...] any clubs o r organizations such as druze groups, unions, fraternal or athletic groups, or [...] Master's degree (e.g., MA, MS, Jennifer, MEd, RUSTIC TERRAZZO SETTER, NILAM) 03/19/2023 Comments Unknown Sex and Gender Information Value Date Recorded Sex Assigned at Not on file Legal Sex Female 6:35 PM EDT Gender Identity Not on file Sexual Orientation Not on file Occupation Industry Job Start Date Job End Date 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 on file Not on nidia e Not on file documented as of this encounter Plan of Treatment Upcoming Encounters Date Type Department Care Team (Late st Contact Info) Description 09/19/2024 10:00 AM EDT Office [facility] [address] [place] [address] Penelope Walker, AGRONOMY MANAGER-MOTTLER MACHINE FEEDER [address] [place], [place] [id number] documented as of this encounter Visit Diagnoses Not on filedocumented in this encounter Care Teams Round Corner Cutter Operator Relationship Specialty Start Date End Date Blane Beavers DO [address] [facility] 230 [place] [address] PCP - General Family Medicine 02/09/23 Penelope Walker, TRISTAN-MOTTLER MACHINE FEEDER 112 [facility] 160 [place] [address] [facility] 02/20/24 Penelope Walker, TRISTAN-MOTTLER MACHINE FEEDER [address] [address] Nurse Practitioner Behavioral Health 07/28/22 documented as of this encounter
--- OUTSIDE RECORDS SUMMARY | 2024-09-17 00:43 | XMS_ITS | Encounter Summary ---
Author Organization [facility] Address [address] [place] [address] Care Team Providers Care Venetian Blind Mechanic Name Role Phone Penelope Walker WOOL MIXER-BIOMED TECH Unavailable Blane Beavers DO Primary Care Provider [phone] Encounter Details Date Type Department Care Team (Late st Contact Info) Description 09/09/2024 Abstract [facility] [address] [facility] [address] [place] [address] Blane Beavers DO [address] [facility] [address] [facility] [address] [place] [address] Social History Tobacco Use Types [...] How often do you attend chur or yarsani services? Never 02/09/2023 Do you belong to any clubs o r organizations such as orthodox groups, unions, fraternal or athletic groups, or [...] Recorded Patient Health Questionnaire-2 Score 1 12/17/2023 [facility] of Occupat ional Health - Occupational Stress [...] place to sleep or slept in a halfway (including now)? No 02/09/2023 Education Answer Date Recorded What is the highest level of school you have completed or the highest degree you have received? Master's degree (e.g., MA, MS, Jennifer, MEd, DAMAGED FREIGHT INSPECTOR, NILAM) 03/19/2023 Comments Unknown Sex and Gender [...] Health [address] [place] [address] Penelope Walker, WOOL MIXER-BIOMED TECH [address] [place] [address] documented as of this encounter Visit Diagnoses Not on filedocumented in this encounter Care Teams Venetian Blind Mechanic Relationship Specialty Start Date End Date Blane Beavers DO [address] [facility] 230 [place] [address] PCP - General Family Medicine 02/09/23 Penelope Walker, WOOL MIXER-BIOMED TECH [address] [place] [facility] 160 [place] [address] Nurse Practitioner Behavioral Health 07/28/22 documented as of this encounter
--- OUTSIDE RECORDS SUMMARY | 2024-09-17 00:43 | XMS_ITS | Encounter Summary ---
Author Organization [facility] Address [address] [place] [address] Care Team Providers Care Industrial Health And Safety Professor Name Role Phone Abrahan Merrill MD Primary Care Provider [phone] Penelope Walker HERB DOCTOR-UNIT LEADER Unavailable Blane Beavers DO Primary Care Provider + [phone] Penelope aWlker HERB DOCTOR-UNIT LEADER Unavailable Encounter Details Date Type Department Care Team (Late st Contact Info) Description 01/29/2023 Abstract [facility] [address] [facility] [address] [place] [address] Blane Beavers DO [address] [facility] 230 [place] [address] Social History Tobacco Use Types [...] Upcoming Encounters Date Type Department Care Team ([facility] st Contact Info) Description 09/19/2024 10:00 AM EDT Office Visit [facility] [address] [facility] [address] [place] [address] Penelope Walker HERB DOCTOR-UNIT LEADER 112 [facility] 160 [place] [address] documented as of this encounter Visit Diagnoses Not on filedocumented in this encounter Care Teams Industrial Health And Safety Professor Relationship Specialty Start Date End Date Abrahan Merrill MD [address] [place] [address] PCP - General Family Medicine 07/28/22 02/08/23 Blane Beavers DO [address] [place] [address] PCP - General Family Medicine 02/09/23 Penelope Walker HERB DOCTOR-UNIT LEADER 112 [facility] 160 [place] [address] PCP - [employer] 02/20/24 Penelope Walker HERB DOCTOR-UNIT LEADER 112 [facility] 160 [place] [address] Nurse Practitioner Behavioral Health 07/28/22 documented as of this encounter
--- OUTSIDE RECORDS SUMMARY | 2024-09-17 00:43 | XMS_ITS | Encounter Summary ---
Author Organization [employer] tem Address [id number] [place] [address] Care Team Providers Care Cafeteria Team Leader Name Role Phone Unavailable Primary Care Provider Unavailabl e Encounter Details Date Type Department Care Team (Late st Contact Info) Description 05/20/2020 Telephone Maternal- Medicine at [facility] [address] [place] [address] Charley Reyes LPN Social History [...]
--- OUTSIDE RECORDS SUMMARY | 2024-09-17 00:43 | XMS_ITS | Encounter Summary ---
Author Organization [facility] Address [address] [facility] [place] [address] Care Team Providers Care Refinery Operator Visbreaking Name Role Phone Penelope Walker TELESALES MANAGER-BOWLING ALLEY REFINISHER Unavailable Blane Beavers DO Primary Care Provider [phone] Penelope Walker TELESALES MANAGER-BOWLING ALLEY REFINISHER Unavailable Encounter Details Date Type Department Care Team (Late st Contact Info) Description 08/17/2023 Abstract [facility] [address] [facility] [address] [place] [address] Blane Beavers DO [address] [facility] [address] [place] [address] Social History Tobacco Use Types Packs/Day Years [...] often do you attend chur ch or scientologist services? Never 02/09/2023 Do you belong to any clubs o r organizations such as denominational groups, unions, fraternal or athletic groups, or [...] Recorded Patient Health Questionnaire-2 Score 0 04/13/2023 [facility] of Occupat ional Health - [...] place to sleep or slept in a group home (including now)? No 02/09/2023 Education Answer Date Recorded What is the highest level of school you have completed or the highest degree you have received? 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 on file Not on nidia e Not on file documented as of this encounter Plan of Treatment Upcoming Encounters Date Type Department Care Team (Late st Contact Info) Description 09/19/2024 10:00 AM EDT Office [facility] [address] [place] [address] Penelope Walker, TELESALES MANAGER-BOWLING ALLEY REFINISHER [address] [place], [place] [phone] documented as of this encounter Visit Diagnoses Not on filedocumented in this encounter Care Teams Refinery Operator Visbreaking Relationship Specialty Start Date End Date Blane Beavers DO [address] [facility] 230 [place] [address] PCP - General Family Medicine 02/09/23 Penelope Walker, TRISTAN-BOWLING ALLEY REFINISHER 112 [facility] 160 [place] [address] [facility] 02/20/24 Penelope Walker, TRISTAN-BOWLING ALLEY REFINISHER [address] [address] Nurse Practitioner Behavioral Health 07/28/22 documented as of this encounter
--- OUTSIDE RECORDS SUMMARY | 2024-09-17 00:43 | XMS_ITS | Encounter Summary ---
Author Organization [facility] Address [address] [place] [address] Care Team Providers Care Field Mechanical Meter Tester Name Role Phone Penelope Walker AIR CHIEF MARSHAL-PORCELAIN ENAMELER Unavailable Blane Beavers DO Primary Care Provider [phone] Penelope Walker AIR CHIEF MARSHAL-PORCELAIN ENAMELER Unavailable Reason for Visit * Reason Comments Med Refill Encounter Details Date Type Department Care Team (Late st Contact Info) Description 07/15/2023 Refill [facility] [address] [facility] [address] [place] [phone] Penelope Walker, AIR CHIEF MARSHAL-PORCELAIN ENAMELER [address] [place] [address] Bipolar 2 disorder (HCC) Social History Tobacco [...] How often do you attend chur or nondenominational services? Never 02/09/2023 Do you belong to [...] Recorded Patient Health Questionnaire-2 Score 0 04/13/2023 [facility] of Occupat ional Health - Occupational Stress [...] place to sleep or slept in a half-way (including now)? No 02/09/2023 Education Answer Date Recorded What is the highest level of school you have completed or the highest degree you have received? 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 on file Not on nidia e Not on file documented as of this encounter Plan of Treatment Upcoming Encounters Date Type Department Care Team (Late st Contact Info) Description 09/19/2024 10:00 AM EDT Office Visit [facility] [address] [place] [address] Penelope Walker, AIR CHIEF MARSHAL-PORCELAIN ENAMELER [address] [place] [address] documented as of this encounter Visit Diagnoses Diagnosis Bipolar 2 disorder (HCC) Other bipolar disorders documented in this encounter Care Teams Field Mechanical Meter Tester Relationship Specialty Start Date End Date Blane Beavers DO [address] [place] [address] PCP - General Family Medicine 02/09/23 Penelope Walker, AIR CHIEF MARSHAL-PORCELAIN ENAMELER [address] [facility] 160 [place] [address] PCP - [facility] 02/20/24 Penelope Walker, AIR CHIEF MARSHAL-PORCELAIN ENAMELER 112 [address] [facility] 160 [place] [address] Nurse Practitioner Behavioral Health 07/28/22 documented as of this encounter
--- OUTSIDE RECORDS SUMMARY | 2024-09-17 00:43 | XMS_ITS | Encounter Summary ---
Author Organization [facility] Address [address] [facility] [place] [address] Care Team Providers Care Director Of Head Start Name Role Phone Penelope Walker TRANSPORTATION ENGINEERING TECHNICIAN-DRESSING MACHINE OPERATOR Unavailable Blane Beavers DO Primary Care Provider [phone] Penelope Walker TRANSPORTATION ENGINEERING TECHNICIAN-DRESSING MACHINE OPERATOR Unavailable Encounter Details Date Type Department Care Team (Late st Contact Info) Description 08/17/2023 Abstract [facility] [address] [facility] [address] [place] [address] Blane Beavers DO [address] [facility] [address] [place] [address] Social History Tobacco Use Types Packs/Day Years [...] often do you attend chur ch or latter day services? Never 02/09/2023 Do you belong to any clubs o r organizations such as mormon groups, unions, fraternal or athletic groups, or [...] Questionnaire-2 Score 0 04/13/2023 [facility] of Occupat ional Health - Occupational [...] place to sleep or slept in a custodial (including now)? No 02/09/2023 Education Answer Date Recorded What is the highest level of school you have completed or the highest degree you have received? 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) Not on file Not on nidia e Not on file documented as of this encounter Plan of Treatment Upcoming Encounters Date Type Department Care Team (Late st Contact Info) Description 09/19/2024 10:00 AM EDT Office [facility] [address] [place] [address] Penelope Walker, TRANSPORTATION ENGINEERING TECHNICIAN-DRESSING MACHINE OPERATOR [address] [place], [place] [id number] documented as of this encounter Visit Diagnoses Not on filedocumented in this encounter Care Teams Director Of Head Start Relationship Specialty Start Date End Date Blane Beavers DO [address] [facility] 230 [place] [address] PCP - General Family Medicine 02/09/23 Penelope Walker, TRISTAN-DRESSING MACHINE OPERATOR 112 [facility] 160 [place] [address] [facility] 02/20/24 Penelope Walker, TRISTAN-DRESSING MACHINE OPERATOR [address] [address] Nurse Practitioner Behavioral Health 07/28/22 documented as of this encounter
--- OUTSIDE RECORDS SUMMARY | 2024-09-17 00:43 | XMS_ITS | Encounter Summary ---
Author Organization [facility] Address [address] [facility] [place] [address] Care Team Providers Care Engraver Wood Name Role Phone Penelope Walker STORES ASSISTANT-ACTION INSTALLER Unavailable Blane Beavers DO Primary Care Provider [phone] Penelope Walker STORES ASSISTANT-ACTION INSTALLER Unavailable Encounter Details Date Type Department Care Team (Late st Contact Info) Description 08/17/2023 Abstract [facility] [address] [facility] [address] [place] [address] Blane Beavers DO [address] [facility] [address] [place] [address] Social History Tobacco Use Types Packs/Day Years [...] often do you attend chur ch or restoration services? 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 on file Not on nidia e Not on file documented as of this encounter Plan of Treatment Upcoming Encounters Date Type Department Care Team (Late st Contact Info) Description 09/19/2024 10:00 AM EDT Office [facility] [address] [place] [address] Penelope Walker, STORES ASSISTANT-ACTION INSTALLER [address] [place], [place] [id number] documented as of this encounter Visit Diagnoses Not on filedocumented in this encounter Care Teams Engraver Wood Relationship Specialty Start Date End Date Blane Beavers DO [address] [facility] 230 [place] [address] PCP - General Family Medicine 02/09/23 Penelope Walker, TRISTAN-ACTION INSTALLER 112 [facility] 160 [place] [address] [facility] 02/20/24 Penelope Walker, TRISTAN-ACTION INSTALLER [address] [address] Nurse Practitioner Behavioral Health 07/28/22 documented as of this encounter
--- OUTSIDE RECORDS SUMMARY | 2024-09-17 00:43 | XMS_ITS | Encounter Summary ---
Author Organization [facility] Address [address] [facility] [place] [address] Care Team Providers Care Cashier And Waiter/Waitress Name Role Phone Penelope Walker TIMBER MANAGEMENT SPECIALIST-CHEMISTRY TECHNOLOGIST Unavailable Blane Beavers DO Primary Care Provider [phone] Penelope Walker TIMBER MANAGEMENT SPECIALIST-CHEMISTRY TECHNOLOGIST Unavailable Encounter Details Date Type Department Care Team (Late st Contact Info) Description 08/17/2023 Abstract [facility] [address] [facility] [address] [place] [address] Blane Beavers DO [address] [facility] [address] [place] [address] Social History Tobacco Use Types Packs/Day Years [...] often do you attend chur ch or moravian services? 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) Not on file Not on nidia e Not on file documented as of this encounter Plan of Treatment Upcoming Encounters Date Type Department Care Team (Late st Contact Info) Description 09/19/2024 10:00 AM EDT Office Visit [facility] [address] [place] [address] Penelope Walker, TIMBER MANAGEMENT SPECIALIST-CHEMISTRY TECHNOLOGIST [address] [place], [place] [id number] documented as of this encounter Visit Diagnoses Not on filedocumented in this encounter Care Teams Cashier And Waiter/Waitress Relationship Specialty Start Date End Date Blane Beavers DO [address] [facility] 230 [place] [address] PCP - General Family Medicine 02/09/23 Penelope Walker, TRISTAN-CHEMISTRY TECHNOLOGIST 112 [facility] 160 [place] [address] [facility] 02/20/24 Penelope Walker, TRISTAN-CHEMISTRY TECHNOLOGIST [address] [address] Nurse Practitioner Behavioral Health 07/28/22 documented as of this encounter
--- OUTSIDE RECORDS SUMMARY | 2024-09-17 00:43 | XMS_ITS | Encounter Summary ---
Author Organization [facility] Address [address] [place] [address] Care Team Providers Care Tennis Player Name Role Phone Penelope Walker CLINICAL SERVICES ASSISTANT-WOOD TILE INSTALLATION HELPER Unavailable Blane Beavers DO Primary Care Provider [phone] Penelope Walker CLINICAL SERVICES ASSISTANT-WOOD TILE INSTALLATION HELPER Unavailable Encounter Details Date Type Department Care Team (Late st Contact Info) Description 08/17/2023 Abstract [facility] [address] [place] [id number] Blane Beavers DO [address] [facility] [address] [place] [address] Social History Tobacco Use Types Packs/Day Years [...] often do you attend chur ch or hoahaoism services? Never 02/09/2023 Do you belong to [...] place to sleep or slept in a detention (including now)? No 02/09/2023 Education Answer Date Recorded What is the highest level of school you have completed or the highest degree you have received? 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 on file Not on nidia e Not on file documented as of this encounter Plan of Treatment Upcoming Encounters Date Type Department Care Team (Late st Contact Info) Description 09/19/2024 10:00 AM EDT Office [facility] [address] [place] [address] Penelope Walker, CLINICAL SERVICES ASSISTANT-WOOD TILE INSTALLATION HELPER [address] [place], [place] [id number] documented as of this encounter Visit Diagnoses Not on filedocumented in this encounter Care Teams Tennis Player Relationship Specialty Start Date End Date Blane Beavers DO [address] [facility] [address] [place] [address] PCP - General Family Medicine 02/09/23 Penelope Walker, TRISTAN-WOOD TILE INSTALLATION HELPER 112 [facility] [address] [place] [address] [facility] 02/20/24 Penelope Walker, TRISTAN-WOOD TILE INSTALLATION HELPER [address] [address] Nurse Practitioner Behavioral Health 07/28/22 documented as of this encounter
--- OUTSIDE RECORDS SUMMARY | 2024-09-17 00:43 | XMS_ITS | Encounter Summary ---
Author Organization [employer] tem Address [id number] [address] [place] [address] Care Team Providers Care Desizing Pad Operator Name Role Phone Unavailable Primary Care Provider Unavailabl e Encounter Details Date Type Department Care Team (Late st Contact Info) Description 05/20/2020 Orders Only Maternal- Medicine at [facility] [address] [place] [address] External, Scanning Provider Social History [...] more fetus (05/17/2020) Anatomical Region Laterality Modality OB-FINANCIAL ANALYSIS ADVISOR Ultrasound Narrative 05/17/2020 See attached report us Scanning Provider External IMG US ORDERABLES Philippe richi Result - Final * Ultrasound limited 1 or more fetus (04/19/2020) Anatomical Region Laterality Modality OB-FINANCIAL ANALYSIS ADVISOR Ultrasound Narrative 04/19/2020 See attached report us Scanning Provider External IMG US ORDERABLES Philippe richi Result - Final * Ultrasound limited 1 or more fetus (01/30/2020) Anatomical Region Laterality Modality OB-FINANCIAL ANALYSIS ADVISOR Ultrasound Narrative 01/30/2020 See attached report us Scanning Provider External IMG US ORDERABLES Philippe richi Result - Final documented in this encounter Visit Diagnoses Not on filedocumented in this encounter
--- OUTSIDE RECORDS SUMMARY | 2024-09-17 00:44 | XMS_ITS | Encounter Summary ---
Author Organization [facility] Address [address] [place] [address] Care Team Providers Care C Iron Worker Name Role Phone Penelope Walker SUPERINTENDENT DISTRIBUTION-CHAIN SALES CONSULTANT Unavailable Blane Beavers DO Primary Care Provider + [phone] Reason for Visit * Reason Onset Date Comments Med Refill 09/11/2024 Encounter Details Date Type Department Care Team (Late st Contact Info) Description 09/11/2024 Refill [facility] [address] [facility] [address] [place] [phone] Penelope Walker, SUPERINTENDENT DISTRIBUTIONCHAIN SALES CONSULTANT 112 [facility] [address] [place] [address] Bipolar 2 disorder (HCC) Social History Tobacco [...] any clubs o r organizations such as mormonism groups, unions, fraternal or athletic groups, or [...] Recorded Patient Health Questionnaire-2 Score 1 12/17/2023 [facility] - Occupational [...] Master's degree (e.g., MA, MS, Jennifer, MEd, DIE MACHINE OPERATOR, NILAM) 03/19/2023 Comments Unknown Sex [...] Health [address] [place] [address] Penelope Walker, SUPERINTENDENT DISTRIBUTION-CHAIN SALES CONSULTANT [address] [place] [address] documented as of this encounter Visit Diagnoses Diagnosis Bipolar 2 disorder (HCC) Other bipolar disorders documented in this encounter Care Teams C Iron Worker Relationship Specialty Start Date End Date Blane Beavers DO [address] [facility] [address] [place] [address] PCP - General Family Medicine 02/09/23 Penelope Walker, SUPERINTENDENT DISTRIBUTION-CHAIN SALES CONSULTANT 112 [facility] [address] [place] [address] Nurse Practitioner Behavioral Health 07/28/22 documented as of this encounter
--- NOTE | 2024-09-17 01:01 | CT_ITS ---
The [address] [address] Patient Name: LEONA GOODSON MRN: [id number] date: 1995 Sex: F Assigned Patient Location: ER Current Patient Location: [place] Accession/Order Number: [id number] Exam Date: 09/17/2024 06:02 Report Date: 09/17/2024 06:09 At the request of: EVANS SUMNER MD Procedure: CT abdomen pelvis wo con CT abdomen pelvis wo con 09/17/2024 1:48 AM SIGNS AND SYMPTOMS: ^S/P ;ithortripsy with right stent placement 09/11, right flank pain with nausea and vomiting TECHNIQUE: Multidetector ct axial images of the abdomen and pelvis were obtained without IV contrast. Multiplanar reformats were performed and reviewed to further define anatomy and possible pathology. CT was performed with one or more of the following dose reduction techniques: Automated exposure control, adjustment of the mA and/or kV according to patient size, or use of iterative reconstruction technique. COMPARISON: 09/06/2024 FINDINGS: Lower Chest: There is linear scarring in the right lung base. ABDOMEN: Liver: Within normal limits. Bile Ducts: Normal caliber. Gallbladder: No calcified gallstones. Normal caliber wall. Pancreas: Within normal limits. Spleen: Within normal limits. Adrenals: Within normal limits. Kidneys: Multiple large stone fragments are noted in the right renal pelvis consistent with interval lithotripsy of a staghorn calculus in the right renal pelvis. There is peripelvic fat stranding with mild right hydronephrosis. The proximal aspect of a right ureteral stent is noted within the right renal pelvis. Smaller nonobstructing left-sided renal stones are redemonstrated. Pelvis: Reproductive Organs: No pelvic masses. Ureters: A right ureteral stent is present. There is periureteral fat stranding on the right. Bladder: Within normal limits. Bowel: Normal caliber. There is a normal appendix in the right lower quadrant. Mesenteric Lymph Nodes: No enlarged mesenteric lymph nodes. Peritoneum: No ascites or free air, no fluid collection. Vessels: within normal limits Retroperitoneum: Within normal limits. Abdominal Wall: Within normal limits. Bones: Within normal limits. CT/CT abdomen pelvis wo con IMPRESSION: Multiple large stone fragments are noted in the right renal pelvis consistent with interval lithotripsy of a staghorn calculus in the right renal pelvis. There is peripelvic fat stranding with mild right hydronephrosis. A right ureteral stent is in satisfactory position. Fat stranding extends along the right ureter. Smaller nonobstructing left-sided renal stones are redemonstrated. No free fluid or free air. There is a normal appendix in the right lower quadrant. Impression dictated by: Lanre Sal M.D. 09/17/2024 6:09 AM Dictation Location: [place] [address] Electronically authenticated by: [id number] Y Date: 09/17/2024 06:09
--- NOTE | 2024-09-17 01:03 | ED_ITS ---
HPI - Abdominal Pain General Stated Complaint: LOWER ABDOMINAL PAIN, POST URO SURGERY Time Seen by Provider: 09/17/24 00:30 Mode of arrival: walk-in History of Present Illness HPI narrative: This 28-year-old female who is status post lithotripsy and right ureteral stent placement by Dr. Ba last , 09/11/2024 presents for evaluation of ongoing abdominal and flank pain with nausea. The patient states she has been so sick since the procedure she cannot get off the bed. She was sent home with a prescription for ketorolac. She had some leftover [place] which she has been out of for several days. She states that those medications are barely taking th off of her pain. Her temperature was mildly elevated at triage at 99.9. She has not had any fevers or chills. She has been urinating dark urine. She is also constipated and states she has not had a bowel movement since her procedure. She states the urologist nurse did follow-up with her after her procedure and she thought she was feeling better but they are unaware that her symptoms have worsened over the past several days. She states she cannot do anything. She cannot eat, drink, get off the couch or go to work due to her discomfort. She did have a kidney stone and ureteral stent a year ago but does not think it was as difficult to recover from as this is. Related Data Home Medications ?Medication ?Instructions ?Recorded ?Confirmed lamotrigine 150 mg tablet 150 mg PO .QHS 08/14/2308/21 cariprazine 3 mg capsule (Vraylar) 3 mg PO .QHS 09/17/24 sertraline 50 mg tablet 50 mg PO .QHS 08/16/2309/17 Previous Rx's ?Medication ?Instructions ?Recorded ketorolac 10 mg tablet 10 mg PO Q8H PRN pain 5 days #15 09/06/24 tabs cephalexin 500 mg capsule 500 mg PO BID 7 days #14 cap s 09/11/24 Allergies Allergy/AdvReac Type Severity Reaction Status Date / Time ethinyl estradiol (From Allergy suicidal Verified 09/17/24 01:44 NuvaRing) etonogestrel (From NuvaRing) Allergy suicidal Verified 09/17/24 01:44 Review of Systems ROS Status of ROS 10 or more systems reviewed and unremark able except as noted in history and below [facility] Medical History (Updated 09/17/24 @ 02:18 by Margarita Marie MD) Ureteral stone with hydronephrosis ?N13.2 - Hydronephrosis with renal and ureteral calculous obstruction (ICD- 10) Urinary tract infection ?N39.0 - Urinary tract infection, site not specified (ICD-10) VERONICA (acute kidney injury) ?N17.9 - Acute kidney failure, unspecified (ICD-10) Acute flank pain ?R10.9 - Unspecified abdominal pain (ICD-10) UTI (urinary tract infection) ?N39.0 - Urinary tract infection, site not specified (ICD-10) Staghorn calculus ?N20.0 - Calculus of kidney (ICD-10) PONV (postoperative nausea and vomiting) ?R11.2 - Nausea with vomiting, unspecified (ICD-10) ?Z98.890 - Other specified postprocedural states (ICD-10) Bipolar disorder ?F31.9 - Bipolar disorder, unspecified (ICD-10) Depression ?F32.A - Depression, unspecified (ICD-10) Anxiety ?F41.9 - Anxiety disorder, unspecified (ICD-10) Kidney stone ?N20.0 - Calculus of kidney (ICD-10) Bipolar 2 disorder ?F31.81 - Bipolar II disorder (ICD-10) Surgical History Status post dilation of urethral narrowing ?Z98.890 - Other specified postprocedural states (ICD-10) History of salpingectomy ?Z90.79 - Acquired absence of other genital organ(s) (ICD-10) S/P cystoscopy with ureteral stent placement (08/16/23) ?Z96.0 - Presence of urogenital implants (ICD-10) H/O lithotripsy ?Z98.890 - Other specified postprocedural states (ICD-10) Family History Other Family history of diabetes mellitus Family history of hypertension Family history of prostate cancer Social History Within the past year, how often did you have a drink containing alcohol: monthly or less Do you use any of these nicotine containing products: vaping products Nicotine containing products detail: vaped yesterday Non-prescribed substance use: denies use 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 Highest level of school completed/degree received: Bachelor's degree Little interest or pleasure in doing things: not at all Feeling down, depressed, or hopeless: not at all Exam Narrative Exam Narrative: Vital signs and Nursing Notes reviewed: Patient's temperature is mildly elevated 99.9, pulse is elevated 97, she has a stable blood pressure 136/86, she is not hypoxic with pulse ox of 95% on room air General: Awake, alert, oriented, nontoxic but uncomfortable appearing female, no respiratory distress HEENT: Normocephalic atraumatic, mucous membranes are moist and pink, eyes are clear, normal conjunctiva, vision is grossly intact Neck: Supple, no meningeal signs, no anterior or posterior cervical lymphadenopathy Chest: Lungs are clear to auscultation with good air entry, there is no wheezing rhonchi or rales appreciated no accessory muscle use, patient is speaking in complete sentences-no chest wall tenderness to palpation CVS: Regular rate and rhythm S1-S2, no murmurs rubs or gallops, pulses are brisk and equal bilaterally ABD: Softly distended with tenderness in the right lower lumbar region flank region and along the distribution of the right ureter and right lower quadrant, there is also mild tenderness and fullness in the left lower quadrant. Extremities: Moving all extremities, no lower extremity tenderness or swelling noted, negative Homans' sign, pulses are brisk and equal bilaterally Skin: Normal in appearance without rash,pallor, petechiae or purpura Neuro: No focal deficits Constitutional Vital Signs, click to edit/add: Last Vital Signs Temp 99.9 F 09/17/24 00:32 Pulse 97 H 09/17/24 00:32 Resp 16 09/17/24 00:32 BP 136/86 09/17/24 00:32 Pulse Ox 95 09/17/24 00:32 O2 Del Method Room Air 09/17/24 00:32 Course Vital Signs Vital signs: Vital Signs Temperature 99.9 F 09/17/24 00:32 Pulse Rate 97 H 09/17/24 00:32 Respiratory Rate 16 09/17/24 00:32 Blood Pressure 136/86 09/17/24 00:32 Pulse Oximetry 95 09/17/24 00:32 Oxygen Delivery Method Room Air 09/17/24 00:32 Temperature 99.9 F 09/17/24 00:32 Pulse Rate 97 H 09/17/24 00:32 Respiratory Rate 16 09/17/24 00:32 Blood Pressure 136/86 09/17/24 00:32 Pulse Oximetry 95 09/17/24 00:32 Oxygen Delivery Method Room Air 09/17/24 00:32 MDM - Abdominal Pain MDM Narrative Medical decision making narrative: This 28-year-old female who had lithotripsy for a staghorn calculi on , 09/11/2024 with a right ureteral stent placement with Dr. Ba presents for michelle luation of ongoing nausea, vomiting, right flank pain and right lower quadrant abdominal pain as well as constipation. She was unaware that she had a fever. Upon arrival it was noted that she had an elevated temperature. A rectal temperature was taken by myself and was 100.1. Septic workup was ordered including CBC with differential, comprehensive metabolic profile, urinalysis, 2 sets of blood cultures and lactic acid. Her white count is elevated 9.2 with a mildly low hemoglobin of 9.4. Comprehensive metabolic profile is mostly normal with mild elevation in her creatinine of 1.26. Urine is positive for leukocyte esterase and 75-100 white blood cells per high- power field. CT scan was ordered and is pending at the time of this dictation. An IV was placed and she was medicated with IV fluids, Zofran, Tylenol for her fever and Dilaudid. Her nausea improved but pain was persistent and she was remedicated with additional Dilaudid. I did review her urine culture results from last weekend she was positive for Klebsiella pneumoniae which was sensitive to most medications including Levaquin. 750 mg of IV Levaquin was ordered. I did discuss this case with urology on-call Dr. Segura who has agreed to see the patient in consult but advised that she will not likely have a procedure while she is actively sick or has an infection. The patient was made aware of this. She remains hemodynamically stable in the emergency department. The case was also discussed with the hospitalist and she is excepted for admission to [facility]. Lab Data Labs: Lab Results 09/17/24 09/17/24 Range/Units 00:55 01:18 WBC 19.2 H (4.0-11.0) 10^3/uL RBC 3.61 L (4.20-5.40) 10^6/uL Hgb 9.4 L (12.0-16.0) g/dL Hct 29.0 L (36.0-48.0) % MCV 80.3 L (81.0-99.0) fL MCH 26.0 L (26.7-34.0) pg MCHC 32.4 (29.9-35.2) g/dL RDW 15.0 (11.0-15.0) % Plt Count 592 H (150-450) 10^3/uL MPV 9.0 L (9.5-13.5) fL Neut % (Auto) 76.0 H (43.0-75.0) % Lymph % (Auto) 14.2 L (20.5-60.0) % [place] % (Auto) 7.1 (1.7-12.0) % Eos % (Auto) 1.6 (0.9-7.0) % Baso % (Auto) 0.3 (0.2-2.0) % Neut # (Auto) 14.6 H (1.4-6.5) 10^3/uL Lymph # (Auto) 2.7 (1.2-3.8) 10^3/uL [place] # (Auto) 1.4 H (0.3-0.8) 10^3/uL Eos # (Auto) 0.3 (0.0-0.7) 10^3/uL Baso # (Auto) 0.1 (0.0-0.1) 10^3/uL Abs Immat Gran (auto) 0.15 H (0.00-0.03) 10^3/uL Imm/Tot Granulo (auto) 0.8 H (0.0-0.5) % Sodium 134 L (136-145) mmol/L Potassium 4.5 (3.5-5.1) mmol/L Chloride 97 L (98-107) mmol/L Carbon Dioxide 29.1 (21.0-32.0) mmol/L Anion Gap 12.4 BUN 16.0 (7.0-18.0) mg/dL Creatinine 1.26 H (0.55-1.02) mg/dL Est GFR ( Amer) >60 (>=60 mL/min/1.73m^2) Est GFR (Non-Af Amer) 51 L (>=60 mL/min/1.73m^2) BUN/Creatinine Ratio 12.7 Glucose 124 H (74-106) mg/dL Lactate 1.2 (0.4-2.0) mmol/L Calcium 9.6 (8.5-10.1) mg/dL Total Bilirubin 0.4 (0.2-1.0) mg/dL AST 48 H (15-37) U/L ALT 91 H (14-59) U/L Alkaline Phosphatase 400 H (46-116) U/L Total Protein 8.0 (6.4-8.2) g/dL Albumin 2.4 L (3.4-5.0) g/dL Globulin 5.6 g/dL Albumin/Globulin Ratio 0.4 Serum HCG, Qual Negative (NEGATIVE) Urine Color Yellow (YELLOW) Urine Clarity Clear (CLEAR) Urine pH 6.0 (5.0-9.0) Ur Specific [place] 1.020 (1.005-1.025) Urine Protein 100 A (NEG/TRACE) mg/dL Urine Glucose (UA) Negative (NEGATIVE) mg/dL Urine Ketones Negative (NEGATIVE) mg/dL Urine Occult Blood Large A (NEGATIVE) Urine Nitrite Negative (NEGATIVE) Urine Bilirubin Negative (NEGATIVE) Urine Urobilinogen 1.0 (0.2-1.0) EU/dL Ur Leukocyte Esterase Moderate A (NEGATIVE) Urine RBC 2-5 A (0-2) #/HPF Urine WBC 75-100 A (NONE SEEN) #/HPF Ur Squamous Epith Cells Few A (NONE/RARE) #/LPF Urine Crystals Seen A (None Seen) #/HPF Amorphous Sediment Few Urine Bacteria Large A (NONE SEEN) #/HPF Urine Casts None seen (NONE SEEN) #/LPF Urine Mucus None seen (NONE SEEN) Ur Culture Indicated[place] [place] Discharge Clinical Impression: Post-procedural fever, Complicated urinary tract infection Patient Disposition: Admitted As Inpatient Time of Disposition Decision: 02:18 Condition: Fair
[2024-09-17 01:24] LABS: Hematocrit 29.0 % (36.0-48.0); Hemoglobin 9.4 g/dL (12.0-16.0); Immature Granulocytes Abs Auto 0.15 10^3/uL (0.00-0.03); Immature Granulocytes Pct Auto 0.8 % (0.0-0.5); Lymphocytes Absolute Auto 2.7 10^3/uL (1.2-3.8); Mean Corpuscular HGB Conc 32.4 g/dL (29.9-35.2); Mean Corpuscular Hemoglobin 26.0 pg (26.7-34.0); Mean Corpuscular Volume 80.3 fL (81.0-99.0); Platelet Count 592 10^3/uL (150-450); Red Blood Count 3.61 10^6/uL (4.20-5.40); White Blood Count 19.2 10^3/uL (4.0-11.0)
[2024-09-17 01:26] LABS: Glucose Urine UA NEGATIVE (NEGATIVE)
[2024-09-17] MEDS: 0.9 % SODIUM CHLORIDE 1,000 ML 1000 ML IV (01:29)
[2024-09-17] MEDS: HYDROMORPHONE HCL 1 MG/ML CARTRIDGE IV ×2 (01:30→02:09)
[2024-09-17 01:41] LABS: Cast Seen? NONE SEEN #/LPF (NONE SEEN); Crystals Seen? Seen #/HPF (None Seen); Urine Culture Indicated YES-FRMC
[2024-09-17 01:48] LABS: Alanine Aminotransferase 91 U/L (14-59); Albumin Globulin Ratio 0.4; Albumin Level 2.4 g/dL (3.4-5.0); Alkaline Phosphatase 400 U/L (46-116); Anion Gap 12.4; Aspartate Amino Transferase 48 U/L (15-37); Blood Urea Nitrogen 16.0 mg/dL (7.0-18.0); Calcium 9.6 mg/dL (8.5-10.1); Carbon Dioxide 29.1 mmol/L (21.0-32.0); Chloride 97 mmol/L (98-107); Estimated GFR (African America >60 (>=60 mL/min/1.73m^2); Estimated GFR (Non-African Ame 51 (>=60 mL/min/1.73m^2); Globulin 5.6 g/dL; Glucose 124 mg/dL (74-106); Potassium 4.5 mmol/L (3.5-5.1); Sodium 134 mmol/L (136-145); Total Protein 8.0 g/dL (6.4-8.2)
[2024-09-17 02:03] LABS: Lactate/Lactic Acid 1.2 mmol/L (0.4-2.0)
[2024-09-17] MEDS: ACETAMINOPHEN 325 MG TABLET 650 MG PO ×2 (02:08→10:38)
[2024-09-17] MEDS: LEVOFLOXACIN IN DEXTROSE 5 % 750 MG/150 ML PREMIX 100 MG IV (02:41)
[2024-09-17] MEDS: KETOROLAC TROMETHAMINE 30 MG/ML VIAL IVP (02:44)
[2024-09-17] MEDS: 0.9 % SODIUM CHLORIDE 1,000 ML 200 ML IV ×2 (04:19→09:14)
[2024-09-17] MEDS: SENNOSIDES/DOCUSATE SODIUM 1 TAB TABLET PO (04:21)
[2024-09-17] MEDS: ENOXAPARIN SODIUM 30 MG/0.3 ML SYRINGE SUBQ (04:21)
[2024-09-17 05:42] LABS: Hematocrit 26.6 % (36.0-48.0); Hemoglobin 8.4 g/dL (12.0-16.0); Immature Granulocytes Abs Auto 0.14 10^3/uL (0.00-0.03); Immature Granulocytes Pct Auto 0.7 % (0.0-0.5); Lymphocytes Absolute Auto 2.9 10^3/uL (1.2-3.8); Mean Corpuscular HGB Conc 31.6 g/dL (29.9-35.2); Mean Corpuscular Hemoglobin 25.5 pg (26.7-34.0); Mean Corpuscular Volume 80.9 fL (81.0-99.0); Platelet Count 562 10^3/uL (150-450); Red Blood Count 3.29 10^6/uL (4.20-5.40); White Blood Count 19.3 10^3/uL (4.0-11.0)
[2024-09-17 06:03] LABS: Alanine Aminotransferase 75 U/L (14-59); Albumin Globulin Ratio 0.4; Albumin Level 2.1 g/dL (3.4-5.0); Alkaline Phosphatase 333 U/L (46-116); Anion Gap 14.3; Aspartate Amino Transferase 33 U/L (15-37); Blood Urea Nitrogen 14.0 mg/dL (7.0-18.0); Calcium 8.9 mg/dL (8.5-10.1); Carbon Dioxide 26.8 mmol/L (21.0-32.0); Chloride 100 mmol/L (98-107); Estimated GFR (African America >60 (>=60 mL/min/1.73m^2); Estimated GFR (Non-African Ame 57 (>=60 mL/min/1.73m^2); Globulin 5.3 g/dL; Glucose 134 mg/dL (74-106); Potassium 4.1 mmol/L (3.5-5.1); Sodium 137 mmol/L (136-145); Total Protein 7.4 g/dL (6.4-8.2)
[2024-09-17] MEDS: DOCUSATE SODIUM 100 MG CAPSULE 200 MG PO ×2 (08:34→21:35)
--- NOTE | 2024-09-17 09:00 | CM.NOTE ---
Rounds made with Dr. Connors, pt will be inpt status. Dr. Connors discussed with pt diagnosis and plan of care. Pt will continue IV antibiotics and fluids. Awaiting repeat cultures.
[2024-09-17] MEDS: HYDROMORPHONE HCL 0.5 MG/0.5 ML SYRINGE IVP (09:12)
--- NOTE | 2024-09-17 09:38 | PM.IMHP1 ---
Internal Medicine - H&P: HPI History of Present Illness Chief complaint: LOWER ABD PAIN, POST URO SURGERY, POST OP INFECTIO Narrative: Please be aware I am seeing this pt for the first time today. Pt was admitted by night hospitalist. This is a 28 y.o female with recent bilateral renal colic s/p right ureteroscopy and lithotripsy of a very large stone burden greater than 2.5 cm (procedure lasted for more than 1 hour) 4 days ago and was scheduled for stent removal and left lithotripsy/cystoscopy in few days, states that soon after the procedure continued to have right flank pain radiating to the lower abdomen, 11/28, sharp and severe continuous, not alleviated by pain medications, a/w nausea and vomiting, with fever and chills yesterday, with a rectal temperature of 100.1. She decided to come to the ED for further workup. She met severe sepsis criteria: leukocytosis, fever, tachycardia, and increased lactic acid. CT abdomen pelvis showed multiple large stone fragments noted in the right renal pelvis consistent with interval lithotripsy of a staghorn calculus in the right renal pelvis. Right ureteral stent in satisfactory position, fat stranding extends along the right ureter. Smaller non-obstructing left sided renal stones, no free fluid or free air. Pt was admitted under hospitalist service for further workup and management. Review of Systems ROS Status of ROS 10 or more systems reviewed and unremarkable except as noted in history and below [facility] Medical History (Updated 09/17/24 @ 02:18 by Margarita Marie MD) Ureteral stone with hydronephrosis ?N13.2 - Hydronephrosis with renal and ureteral calculous obstruction (ICD-10) Urinary tract infection ?N39.0 - Urinary tract infection, site not specified (ICD-10) VERONICA (acute kidney injury) ?N17.9 - Acute kidney failure, unspecified (ICD-10) Acute flank pain ?R10.9 - Unspecified abdominal pain (ICD-10) UTI (urinary tract infection) ?N39.0 - Urinary tract infection, site not specified (ICD-10) Staghorn calculus ?N20.0 - Calculus of kidney (ICD-10) PONV (postoperative nausea and vomiting) ?R11.2 - Nausea with vomiting, unspecified (ICD-10) ?Z98.890 - Other specified postprocedural states (ICD-10) Bipolar disorder ?F31.9 - Bipolar disorder, unspecified (ICD-10) Depression ?F32.A - Depression, unspecified (ICD-10) Anxiety ?F41.9 - Anxiety disorder, unspecified (ICD-10) Kidney stone ?N20.0 - Calculus of kidney (ICD-10) Bipolar 2 disorder ?F31.81 - Bipolar II disorder (ICD-10) Surgical History Status post dilation of urethral narrowing ?Z98.890 - Other specified postprocedural states (ICD-10) History of salpingectomy ?Z90.79 - Acquired absence of other genital organ(s) (ICD-10) S/P cystoscopy with ureteral stent placement (08/16/23) ?Z96.0 - Presence of urogenital implants (ICD-10) H/O lithotripsy ?Z98.890 - Other specified postprocedural states (ICD-10) Family History Other Family history of diabetes mellitus Family history of hypertension Family history of prostate cancer Social History (Updated 09/17/24 @ 04:14 by Ana Marion RN) Within the past year, how often did you have a drink containing alcohol: monthly or less Do you use any of these nicotine containing products: vaping products Nicotine containing products detail: vaped yesterday Non-prescribed substance use: denies use 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 Highest level of school completed/degree received: Bachelor's degree Are you now , , , , never or living with a partner: In a typical week, how many times do you talk on the telephone with family, friends, or neighbors: twice per week How often do you get together with friends or relatives: twice per week Little interest or pleasure in doing things: not at all Feeling down, depressed, or hopeless: not at all Gender Identity: female Meds Home Medications and Allergies Home Medications ?Medication ?Instructions ?Recorded ?Confirmed ?Type lamotrigine 150 mg tablet 150 mg PO .QHS 08/14/23 09/17/24 History cariprazine 3 mg capsule (Vraylar) 3 mg PO .QHS 08/16/23 09/17/24 History sertraline 50 mg tablet 50 mg PO .QHS 08/16/23 09/17/24 History ketorolac 10 mg tablet 10 mg PO Q8H PRN pain 5 days #15 09/06/24 09/17/24 Rx tabs cephalexin 500 mg capsule 500 mg PO BID 7 days #14 caps 09/11/24 09/17/24 Rx mirabegron 50 mg tablet,extended 50 mg PO Q24H 09/17/24 09/17/24 History release 24 hr Allergies Allergy/AdvReac Type Severity Reaction Status Date / Time ethinyl estradiol (From Allergy suicidal Verified 09/17/24 01:44 NuvaRing) etonogestrel (From NuvaRing) Allergy suicidal Verified 09/17/24 01:44 Exam Narrative Exam Narrative: Constitutional: Ill appearing, not in acute distress, pleasant and cooperative, in pain slightly uncomfortable HEENT: Normocephalic atraumatic, mucous membranes are moist and pink, eyes are clear, normal conjunctiva, vision is grossly intact Neck: Supple, no meningeal signs, no anterior or posterior cervical lymphadenopathy Chest: Lungs are clear to auscultation with good air entry, there is no wheezing rhonchi or rales appreciated no accessory muscle use, patient is speaking in complete sentences-no chest wall tenderness to palpation CVS: Regular rate and rhythm S1-S2, no murmurs rubs or gallops, pulses are brisk and equal bilaterally ABD: Softly distended with tenderness in the right lower lumbar region flank region and along the distribution of the right ureter and right lower quadrant with +ve right CVA tenderness. Extremities: Moving all extremities, no lower extremity tenderness or swelling noted, negative Homans' sign, pulses are brisk and equal bilaterally Skin: Normal in appearance without rash,pallor, petechiae or purpura Neuro: No focal deficits, following commands, alert and oriented x3 Constitutional Vital Signs, click to edit/add: Last Vital Signs Temp 97.7 F 09/17/24 07:27 Pulse 90 09/17/24 07:45 Resp 16 09/17/24 07:27 BP 120/79 09/17/24 07:27 Pulse Ox 94 L 09/17/24 07:27 O2 Del Method Room Air 09/17/24 07:27 Internal Medicine - H&P: Reslt Labs Labs: Short CBC 09/17/24 09/17/24 Range/Units 01:18 05:31 WBC 19.2 H 19.3 H (4.0-11.0) 10^3/uL Hgb 9.4 L 8.4 L (12.0-16.0) g/dL Hct 29.0 L 26.6 L (36.0-48.0) % Plt Count 592 H 562 H (150-450) 10^3/uL BMP 09/17/24 09/17/24 01:18 05:31 Sodium 134 L 137 Potassium 4.5 4.1 Chloride 97 L 100 Carbon Dioxide 29.1 26.8 BUN 16.0 14.0 Creatinine 1.26 H 1.13 H Glucose 124 H 134 H Calcium 9.6 8.9 Liver Function 09/17/24 09/17/24 Range/Units 01:18 05:31 Total Bilirubin 0.4 0.3 (0.2-1.0) mg/dL AST 48 H 33 (15-37) U/L ALT 91 H 75 H (14-59) U/L Alkaline Phosphatase 400 H 333 H (46-116) U/L Albumin 2.4 L 2.1 L (3.4-5.0) g/dL Urine 09/17/24 Range/Units 00:55 Urine Color Yellow (YELLOW) Urine Clarity Clear (CLEAR) Urine pH 6.0 (5.0-9.0) Ur Specific [place] 1.020 (1.005-1.025) Urine Protein 100 A (NEG/TRACE) mg/dL Urine Glucose (UA) Negative (NEGATIVE) mg/dL Assessment and Plan Assessment and Plan (1) Complicated urinary tract infection: (2) Ureteral stone with hydronephrosis: (3) Staghorn calculus: (4) Depression: (5) Bipolar disorder: (6) Anxiety: (7) Bipolar 2 disorder: Plan Complicated UTI, with Recent Right ureteral stenting and bilateral nephrolithiasis Ruling out Bacteremia -Pt admitted to medical floor -Continue with IV ceftriaxone 2 grams q24 hours -Follow up Urine and blood cultures -Continuing Oxycodone and dilaudid for pain PRN -Continuing with additional bag of 1 liter NS -Urology consulted and aware of the pt, will see pt as consult as informed by ED -Enoxaparin for DVT PPx -Avoiding NSAIDs for possible slight VERONICA -Discussed the plan with the pt and
[2024-09-17] MEDS: HYOSCYAMINE SULFATE 0.125 MG TAB.SUBL SL (13:01)
[2024-09-17] MEDS: HYDROMORPHONE HCL 1 MG/ML CARTRIDGE IVP (13:03)
--- NOTE | 2024-09-17 13:38 | PM.CN ---
Consult Note: HPI Data of Consult Consult date: 09/17/24 Requesting Physician: Prema Lees MD Primary Care Provider: Blane Beavers Consult Narrative Reason for consult: Pain, UTI, sepsis Narrative: 28 year old female with history of nephrolithiasis who underwent right ureteroscopy with laser lithotripsy/stent placement by Dr. Ba on 09/11/24 for partial staghorn is admitted with uncontrolled renal colic and PO intolerance, found to have UTI sepsis. Tm rectal 100.1F, tachycardic in 90s, WBC 19, lactate 1.2, Cr mildly elevated 1.2 improved to 1.13 today, UA concerning for infection. CT AP wo contrast notes multiple large stone fragments within right renal pelvis with perinephric stranding and mild hydronephrosis. Right ureteral stent in appropriate position. On personal review, significant stone debris within right collecting system with likely stone fragments remaining, although difficult to discern given degree of debris. Patient was given fluids, given levofloxacin, continued on ceftriaxone, and admitted to hospitalist for further care. Urology was consulted for further evaluation. She has remained afebrile, labs slightly improving from overnight, tolerating PO. Her main complaint is RLQ/suprapubic pain from stent pain/bladder spasms. She has had poor fluid intake at home due to nausea/vomiting. Toradol is helping her pain at home. Now she just feels loopy from narcotics, but still with discomfort. Notes constipation, no BM since surgery. Denies hematuria, passage of fragments, incontinence or feeling of incomplete emptying. cc:: CC: Prema Lees MD Review of Systems ROS Status of ROS 10 or more systems reviewed and unremarkable except as noted in history and below Constitutional Reports: fatigue; Denies: chills Eyes Denies: change in vision or blurry vision Cardiovascular Denies: chest pain or palpitations Respiratory Denies: shortness of breath or cough Gastrointestinal Reports: abdominal pain, nausea and vomiting Genitourinary Denies: urinary incontinence or difficulty voiding Musculoskeletal Reports: back pain; Denies: neck pain Integumentary/Breast Denies: rash or itching Neurological Denies: numbness in extremities or confusion Hematologic/Lymphatic Denies: easy bruising or easy bleeding PFSH PFS Medical History (Updated 09/17/24 @ 14:13 by Paola Segura MD) Ureteral stone with hydronephrosis ?N13.2 - Hydronephrosis with renal and ureteral calculous obstruction (ICD-10) Urinary tract infection ?N39.0 - Urinary tract infection, site not specified (ICD-10) VERONICA (acute kidney injury) ?N17.9 - Acute kidney failure, unspecified (ICD-10) Acute flank pain ?R10.9 - Unspecified abdominal pain (ICD-10) UTI (urinary tract infection) ?N39.0 - Urinary tract infection, site not specified (ICD-10) Staghorn calculus ?N20.0 - Calculus of kidney (ICD-10) PONV (postoperative nausea and vomiting) ?R11.2 - Nausea with vomiting, unspecified (ICD-10) ?Z98.890 - Other specified postprocedural states (ICD-10) Bipolar disorder ?F31.9 - Bipolar disorder, unspecified (ICD-10) Depression ?F32.A - Depression, unspecified (ICD-10) Anxiety ?F41.9 - Anxiety disorder, unspecified (ICD-10) Kidney stone ?N20.0 - Calculus of kidney (ICD-10) Bipolar 2 disorder ?F31.81 - Bipolar II disorder (ICD-10) Surgical History Status post dilation of urethral narrowing ?Z98.890 - Other specified postprocedural states (ICD-10) History of salpingectomy ?Z90.79 - Acquired absence of other genital organ(s) (ICD-10) S/P cystoscopy with ureteral stent placement (08/16/23) ?Z96.0 - Presence of urogenital implants (ICD-10) H/O lithotripsy ?Z98.890 - Other specified postprocedural states (ICD-10) Family History Other Family history of diabetes mellitus Family history of hypertension Family history of prostate cancer Social History (Updated 09/17/24 @ 04:14 by Ana Marion RN) Within the past year, how often did you have a drink containing alcohol: monthly or less Do you use any of these nicotine containing products: vaping products Nicotine containing products detail: vaped yesterday Non-prescribed substance use: denies use 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 Highest level of school completed/degree received: Bachelor's degree Are you now , , , , never or living with a partner: In a typical week, how many times do you talk on the telephone with family, friends, or neighbors: twice per week How often do you get together with friends or relatives: twice per week Little interest or pleasure in doing things: not at all Feeling down, depressed, or hopeless: not at all Gender Identity: female Meds Home Medications and Allergies Home Medications ?Medication ?Instructions ?Recorded ?Confirmed ?Type lamotrigine 150 mg tablet 150 mg PO .QHS 08/14/23 09/17/24 History cariprazine 3 mg capsule (Vraylar) 3 mg PO .QHS 08/16/23 09/17/24 History sertraline 50 mg tablet 50 mg PO .QHS 08/16/23 09/17/24 History ketorolac 10 mg tablet 10 mg PO Q8H PRN pain 5 days #15 09/06/24 09/17/24 Rx tabs cephalexin 500 mg capsule 500 mg PO BID 7 days #14 caps 09/11/24 09/17/24 Rx mirabegron 50 mg tablet,extended 50 mg PO Q24H 09/17/24 09/17/24 History release 24 hr Allergies Allergy/AdvReac Type Severity Reaction Status Date / Time ethinyl estradiol (From Allergy suicidal Verified 09/17/24 01:44 NuvaRing) etonogestrel (From NuvaRing) Allergy suicidal Verified 09/17/24 01:44 Exam Narrative Exam Narrative: No acute distress, appears fatigued Nonlabored respirations, symmetric chest rise, on room air Normal rate and rhythm, no peripheral edema Right lower quadrant with tenderness to palpation, non distended Right CVA and suprapubic tenderness to palpation, no right CVA tenderness to palpation Moves all extremities, no deformities Alert and oriented x 4, no acute focal deficits Skin dry, intact Appropriate, cooperative Constitutional Vital Signs, click to edit/add: Last Vital Signs Temp 98.7 F 09/17/24 11:04 Pulse 98 H 09/17/24 11:04 Resp 18 09/17/24 11:04 BP 115/61 09/17/24 11:04 Pulse Ox 97 09/17/24 11:04 O2 Del Method Room Air 09/17/24 11:04 Results Labs Labs: Short CBC 09/17/24 09/17/24 Range/Units 01:18 05:31 WBC 19.2 H 19.3 H (4.0-11.0) 10^3/uL Hgb 9.4 L 8.4 L (12.0-16.0) g/dL Hct 29.0 L 26.6 L (36.0-48.0) % Plt Count 592 H 562 H (150-450) 10^3/uL BMP 09/17/24 09/17/24 01:18 05:31 Sodium 134 L 137 Potassium 4.5 4.1 Chloride 97 L 100 Carbon Dioxide 29.1 26.8 BUN 16.0 14.0 Creatinine 1.26 H 1.13 H Glucose 124 H 134 H Calcium 9.6 8.9 Liver Function 09/17/24 09/17/24 Range/Units 01:18 05:31 Total Bilirubin 0.4 0.3 (0.2-1.0) mg/dL AST 48 H 33 (15-37) U/L ALT 91 H 75 H (14-59) U/L Alkaline Phosphatase 400 H 333 H (46-116) U/L Albumin 2.4 L 2.1 L (3.4-5.0) g/dL Urine 09/17/24 Range/Units 00:55 Urine Color Yellow (YELLOW) Urine Clarity Clear (CLEAR) Urine pH 6.0 (5.0-9.0) Ur Specific [place] 1.020 (1.005-1.025) Urine Protein 100 A (NEG/TRACE) mg/dL Urine Glucose (UA) Negative (NEGATIVE) mg/dL Imaging CT scan - abdomen: Attestation: I personally reviewed and interpreted this imaging study as follows: (see HPI) Assessment and Plan Assessment and Plan (1) Complicated urinary tract infection: (2) Sepsis: (3) Renal colic on right side: (4) Pain due to ureteral stent: (5) Post-procedural fever: Plan 28 year old female as above admitted with uncontrolled pain and PO intolerance s/p right ureteroscopy with laser lithotripsy/stent placement by Dr. Ba on 09/11/24 for partial staghorn. She is admitted for sepsis treatment based on criteria, improving with IV antibiotics and hydration. She was scheduled for L ESWL, R stent removal tomorrow with Dr. Ba, which she was told is now cancelled. Discussed how intervention is not recommended during active infection and although very bothersome, stent removal at this time is not recommended. We will optimize her stent pain control with medications. Discussed overall treatment plan for antibiotics, follow up on urine/blood cultures. Pt and family state their understanding, all questions/concerns addressed. -Oxybutynin prn for bladder spasms/stent pain (pt on mirabegron at home, not available here). Vesicare also available if oxybutynin not effective -IV/PO hydration -Cont empiric abx, follow up urine/blood cultures, treat 7-14 days pending blood cultures -Pyridium prn for dysuria/bladder pain -Toradol 10 mg q6h prn for inflammatory stent pain -Tylenol prn for pain/inflammation as well -bowel regimen given constipation: fluids, colace, miralax -Follow up with Dr. Ba after UTI treated for completion of ongoing treatment plan
[2024-09-17] MEDS: KETOROLAC TROMETHAMINE 30 MG/ML VIAL 15 MG IVP (14:27)
[2024-09-17] MEDS: 0.9 % SODIUM CHLORIDE 1,000 ML 100 ML IV (14:46)
[2024-09-17] MEDS: OXYCODONE HCL 5 MG TABLET PO (17:00)
[2024-09-17] MEDS: SERTRALINE HCL 50 MG TABLET PO (21:35)
[2024-09-17] MEDS: LAMOTRIGINE 100 MG TABLET 150 MG PO (21:35)
[2024-09-17] MEDS: POLYETHYLENE GLYCOL 3350 17 GM POWDER PACKET PO (21:36)
[2024-09-17] MEDS: CARIPRAZINE 3 MG 3 EACH PO (21:39)
[2024-09-18] VITALS (8 sets, daily range): BP systolic 104–122; BP diastolic 67–81; PULSE 73–118; TEMP 37.2–39.4; O2SAT 90–96
[2024-09-18] MEDS: HYDROMORPHONE HCL 1 MG/ML CARTRIDGE IVP ×2 (00:55→06:23)
[2024-09-18] MEDS: PROMETHAZINE HCL 12.5 MG in 0.9 % SODIUM CHLORIDE 50 ML 204 MG IV ×2 (00:56→06:22)
[2024-09-18 05:35] LABS: Hematocrit 28.6 % (36.0-48.0); Hemoglobin 9.2 g/dL (12.0-16.0); Immature Granulocytes Abs Auto 0.18 10^3/uL (0.00-0.03); Immature Granulocytes Pct Auto 0.9 % (0.0-0.5); Lymphocytes Absolute Auto 3.6 10^3/uL (1.2-3.8); Mean Corpuscular HGB Conc 32.2 g/dL (29.9-35.2); Mean Corpuscular Hemoglobin 25.8 pg (26.7-34.0); Mean Corpuscular Volume 80.1 fL (81.0-99.0); Platelet Count 636 10^3/uL (150-450); Red Blood Count 3.57 10^6/uL (4.20-5.40); White Blood Count 20.9 10^3/uL (4.0-11.0)
[2024-09-18 06:17] LABS: Alanine Aminotransferase 62 U/L (14-59); Albumin Globulin Ratio 0.4; Albumin Level 2.4 g/dL (3.4-5.0); Alkaline Phosphatase 368 U/L (46-116); Anion Gap 14.2; Aspartate Amino Transferase 26 U/L (15-37); Blood Urea Nitrogen 10.0 mg/dL (7.0-18.0); Calcium 9.5 mg/dL (8.5-10.1); Carbon Dioxide 28.1 mmol/L (21.0-32.0); Chloride 99 mmol/L (98-107); Estimated GFR (African America 50 (>=60 mL/min/1.73m^2); Estimated GFR (Non-African Ame 42 (>=60 mL/min/1.73m^2); Globulin 5.9 g/dL; Glucose 107 mg/dL (74-106); Magnesium 2.2 mg/dL (1.8-2.4); Potassium 4.3 mmol/L (3.5-5.1); Sodium 137 mmol/L (136-145); Total Protein 8.3 g/dL (6.4-8.2)
[2024-09-18] MEDS: ENOXAPARIN SODIUM 30 MG/0.3 ML SYRINGE SUBQ (06:21)
[2024-09-18] MEDS: DOCUSATE SODIUM 100 MG CAPSULE 200 MG PO ×2 (09:46→20:56)
--- NOTE | 2024-09-18 09:51 | CT_ITS ---
The [address] [address] Patient Name: LEONA GOODSON MRN: [id number] date: 1995 Sex: F Assigned Patient Location: [place] Current Patient Location: [place] Accession/Order Number: [id number] Exam Date: 09/18/2024 10:31 Report Date: 09/18/2024 10:36 At the request of: ANILA MCGARRY MD Procedure: CT abdomen pelvis wo con CT abdomen pelvis wo con 09/18/2024 10:09 AM SIGNS AND SYMPTOMS: ^ruling out abscess and obstruction, right flank pain status post lithotripsy and ureteral stent placement TECHNIQUE: Multidetector ct axial images of the abdomen and pelvis were obtained without IV contrast. Multiplanar reformats were performed and reviewed to further define anatomy and possible pathology. CT was performed with one or more of the following dose reduction techniques: Automated exposure control, adjustment of the mA and/or kV according to patient size, or use of iterative reconstruction technique. COMPARISON: 09/17/2004 FINDINGS: Lower Chest: There is atelectasis in the right lung base. ABDOMEN: Liver: Within normal limits. Bile Ducts: Normal caliber. Gallbladder: No calcified gallstones. Normal caliber wall. Pancreas: Within normal limits. Spleen: Within normal limits. Adrenals: Within normal limits. Kidneys: Multiple large stone fragments are noted in the right renal pelvis consistent with interval lithotripsy of a staghorn calculus in the right renal pelvis. There is peripelvic fat stranding with mild right hydronephrosis. The proximal aspect of a right ureteral stent is noted within the right renal pelvis. There is a persistent enhancement within the right renal cortex suggesting renal insufficiency. Smaller nonobstructing left-sided renal stones are redemonstrated. Pelvis: Reproductive Organs: No pelvic masses. Ureters: A right ureteral stent is present. There is periureteral fat stranding on the right. Bladder: Within normal limits. Bowel: Normal caliber. There is a large amount stool within the colon suggesting constipation. There is a normal appendix. Mesenteric Lymph Nodes: No enlarged mesenteric lymph nodes. Peritoneum: No ascites or free air, no fluid collection. Vessels: within normal limits Retroperitoneum: Within normal limits. Abdominal Wall: There is a fat-containing periumbilical hernia. Bones: Within normal limits. CT/CT abdomen pelvis wo con IMPRESSION: Multiple large stone fragments are noted in the right renal pelvis consistent with interval lithotripsy of a staghorn calculus in the right renal pelvis. There is peripelvic fat stranding with mild right hydronephrosis. There is a persistent enhancement within the right renal cortex suggesting renal insufficiency. Smaller nonobstructing left-sided renal stones are redemonstrated. There is a large amount stool within the colon suggesting constipation. Impression dictated by: Lanre Sal M.D. 09/18/2024 10:36 AM Dictation Location: [place] [address] Electronically authenticated by: [id number] Y Date: 09/18/2024 10:36
--- NOTE | 2024-09-18 10:00 | CM.NOTE ---
Rounds made with Dr. Connors, discussed with pt plan of care. Pt will have repeat CT today and Dr. Connors will reach out to Dr. Agarwal for further recommendations. Pt continues with abdominal pain and spasms to R abdomen.
[2024-09-18] MEDS: 0.9 % SODIUM CHLORIDE 1,000 ML 100 ML IV ×2 (11:08→20:55)
[2024-09-18] MEDS: HYDROMORPHONE HCL 1 MG/ML CARTRIDGE 1.5 MG IVP ×3 (11:14→23:48)
[2024-09-18] MEDS: SOLIFENACIN SUCCINATE 10 MG TABLET PO (11:15)
[2024-09-18] MEDS: PROCHLORPERAZINE 10 MG/2 ML VIAL 5 MG IV ×3 (11:18→23:30)
[2024-09-18] MEDS: ACETAMINOPHEN 500 MG TABLET 1000 MG PO ×2 (11:42→21:43)
--- NOTE | 2024-09-18 12:18 | PM.PN ---
Progress Note: Subjective Subjective Interval history: Patient seen and examined at bedside. Had a rough night stating that she was having Omid pain with nausea and vomiting. Also she was complaining of spasms in her bladder. No fever no chills overnight. Labs were reviewed still having leukocytosis and does have slight VERONICA. I did discuss with her in details myself and the nurse at bedside the risks of ketorolac including VERONICA, but patient is on getting the medication, which I understand because she is she was very much in pain and the opioids were not helping. Exam Narrative Exam Narrative: Constitutional: Ill appearing, not in acute distress, pleasant and cooperative, in pain and was not comfortable HEENT: Normocephalic atraumatic, mucous membranes are moist and pink, eyes are clear, normal conjunctiva, vision is grossly intact Neck: Supple, no meningeal signs, no anterior or posterior cervical lymphadenopathy Chest: Lungs are clear to auscultation with good air entry, there is no wheezing rhonchi or rales appreciated no accessory muscle use, patient is speaking in complete sentences-no chest wall tenderness to palpation CVS: Regular rate and rhythm S1-S2, no murmurs rubs or gallops, pulses are brisk and equal bilaterally ABD: Softly distended with tenderness in the right lower lumbar region flank region and along the distribution of the right ureter and right lower quadrant with +ve right CVA tenderness, there is some voluntary guarding, but no signs of acute abdomen Extremities: Moving all extremities, no lower extremity tenderness or swelling noted, negative Homans' sign, pulses are brisk and equal bilaterally Skin: Normal in appearance without rash,pallor, petechiae or purpura Neuro: No focal deficits, following commands, alert and oriented x3 Constitutional Vital Signs, click to edit/add: Last Vital Signs Temp 100.1 F 09/18/24 11:34 Pulse 103 H 09/18/24 11:34 Resp 20 09/18/24 11:34 BP 108/70 09/18/24 11:34 Pulse Ox 95 09/18/24 11:34 O2 Del Method Room Air 09/18/24 11:34 Progress Note: Objective Labs Labs: Short CBC 09/18/24 Range/Units 05:22 WBC 20.9 H (4.0-11.0) 10^3/uL Hgb 9.2 L (12.0-16.0) g/dL Hct 28.6 L (36.0-48.0) % Plt Count 636 H (150-450) 10^3/uL BMP 09/18/24 05:22 Sodium 137 Potassium 4.3 Chloride 99 Carbon Dioxide 28.1 BUN 10.0 Creatinine 1.49 H Glucose 107 H Calcium 9.5 Liver Function 09/18/24 Range/Units 05:22 Total Bilirubin 0.3 (0.2-1.0) mg/dL AST 26 (15-37) U/L ALT 62 H (14-59) U/L Alkaline Phosphatase 368 H (46-116) U/L Albumin 2.4 L (3.4-5.0) g/dL Progress Note: A&P Assessment and Plan (1) Complicated urinary tract infection: (2) Sepsis: (3) Renal colic on right side: (4) Pain due to ureteral stent: (5) Post-procedural fever: Plan Complicated UTI due to Klebsiella pneumonia,, with Recent Right ureteral stenting and bilateral nephrolithiasis Ruling out Bacteremia -Pt admitted to medical floor -Continue with IV ceftriaxone 2 grams q24 hours -Follow up Urine and blood cultures -Continuing Oxycodone and dilaudid for pain PRN -Continuing with additional bag of 1 liter NS -Urology consulted and aware of the pt, will see pt as consult as informed by ED -Enoxaparin for DVT PPx -Avoiding NSAIDs for possible slight VERONICA -Discussed the plan with the pt and 09/18/2024 patient remains in pain and had a rough night with nausea vomiting and abdominal pain. She remains on IV ceftriaxone 2 g every 24 I will. Her labs reviewed showing leukocytosis which is persistent as well as VERONICA. Stopped her ketorolac completely. Also stopped her enoxaparin. I will put her on SCDs. I spoke with Dr. Gutierrez, reviewed with her the CT of the pelvis which did not show any much changes. As predicted low, this pain is typical for stent pain, she already ordered. DM as needed for dysuria/bladder pain as well as oxybutynin. She states that patient will need treatment for 7 to 14 days pending blood cultures. Also mentioned that we will need to continue with IV hydration and CT of the pelvis would not change plan of management. I started her on IV NS 100 mL/h for total of 2 L today as well. Will check renal function tomorrow. Discussed the plan with the patient at bedside. Answered all her questions. Patient will need at least another day or 2 with IV antibiotics and hydration given her VERONICA as well as persistent pain. Also will need IV antibiotics for now pending blood cultures and urine cultures
[2024-09-18 23:19] LABS: Lactate/Lactic Acid 0.8 mmol/L (0.4-2.0)
[2024-09-18] MEDS: FLUCONAZOLE IN NACL,ISO-OSM 200 MG/100 ML PREMIX 100 MG IV (23:26)
[2024-09-18] MEDS: SERTRALINE HCL 50 MG TABLET PO (23:28)
[2024-09-18] MEDS: LAMOTRIGINE 100 MG TABLET 150 MG PO (23:29)
[2024-09-18] MEDS: POLYETHYLENE GLYCOL 3350 17 GM POWDER PACKET PO (23:29)
[2024-09-19] VITALS (8 sets, daily range): BP systolic 116–132; BP diastolic 77–89; PULSE 92–123; TEMP 37.1–38; O2SAT 90–96
[2024-09-19] MEDS: IMIPENEM/CILASTATIN SODIUM 1,000 MG in 0.9 % SODIUM CHLORIDE 250 ML 250 MG IV ×3 (00:49→16:02)
[2024-09-19] MEDS: HYDROMORPHONE HCL 1 MG/ML CARTRIDGE 1.5 MG IVP ×5 (05:04→22:52)
[2024-09-19] MEDS: PROCHLORPERAZINE 10 MG/2 ML VIAL 5 MG IV ×3 (05:04→18:41)
[2024-09-19 05:35] LABS: Hematocrit 25.9 % (36.0-48.0); Hemoglobin 8.3 g/dL (12.0-16.0); Mean Corpuscular HGB Conc 32.0 g/dL (29.9-35.2); Mean Corpuscular Hemoglobin 26.0 pg (26.7-34.0); Mean Corpuscular Volume 81.2 fL (81.0-99.0); Platelet Count 560 10^3/uL (150-450); Red Blood Count 3.19 10^6/uL (4.20-5.40); White Blood Count 22.1 10^3/uL (4.0-11.0)
[2024-09-19 05:54] LABS: Alanine Aminotransferase 47 U/L (14-59); Albumin Globulin Ratio 0.4; Albumin Level 2.0 g/dL (3.4-5.0); Alkaline Phosphatase 364 U/L (46-116); Anion Gap 14.3; Aspartate Amino Transferase 16 U/L (15-37); Blood Urea Nitrogen 9.0 mg/dL (7.0-18.0); Calcium 9.0 mg/dL (8.5-10.1); Carbon Dioxide 27.0 mmol/L (21.0-32.0); Chloride 99 mmol/L (98-107); Estimated GFR (African America >60 (>=60 mL/min/1.73m^2); Estimated GFR (Non-African Ame 55 (>=60 mL/min/1.73m^2); Globulin 5.5 g/dL; Glucose 119 mg/dL (74-106); Potassium 4.3 mmol/L (3.5-5.1); Sodium 136 mmol/L (136-145); Total Protein 7.5 g/dL (6.4-8.2)
[2024-09-19] MEDS: HYOSCYAMINE SULFATE 0.125 MG TAB.SUBL SL (08:35)
[2024-09-19] MEDS: DOCUSATE SODIUM 100 MG CAPSULE 200 MG PO ×2 (08:35→21:18)
--- NOTE | 2024-09-19 09:21 | PC.NURSE ---
administered fleets enema at this time as ordered
--- NOTE | 2024-09-19 10:38 | PC.NURSE ---
administered fleets enema patient tolerated well. Patient had some aparna after and a total of 800 ml of fluids which included urine and aparna from rectum. Patient states she had some relief with gas passing . Abdomen was soft after emema. Prior to enema tummy was obtunded sounded tympanic.
--- NOTE | 2024-09-19 12:42 | PC.NURSE ---
800 ml's of urine enema liquid and stool. Stool mostly aparna
--- NOTE | 2024-09-19 13:42 | P.PN_ITS ---
Progress Note: Subjective Subjective Interval history: Patient seen and examined at bedside. Had a rough night stating that she was having Omid pain with nausea and vomiting. Also she was complaining of spasms in her bladder. No fever no chills overnight. Labs were reviewed still having leukocytosis and does have slight VERONICA. I did discuss with her in details myself and the nurse at bedside the risks of ketorolac including VERONICA, but patient is on getting the medication, which I understand because she is she was very much in pain and the opioids were not helping. 09/19: Patient is resting comfortably in bed. She is in no acute distress. She is complaining of right sided abdominal pain. Exam Narrative Exam Narrative: Currently she has a temp of 99 5. She did have a fever near 103 last night. Sh e is intermittently tachycardic. Her most recent pulse is 110. Her blood pressure is stable. Constitutional Vital Signs, click to edit/add: Last Vital Signs Temp 99.5 F 09/19/24 12:00 Pulse 110 H 09/19/24 12:00 Resp 18 09/19/24 12:00 BP 125/83 09/19/24 12:00 Pulse Ox 94 L 09/19/24 12:00 O2 Del Method Room Air 09/19/24 12:00 O2 Flow Rate 2 09/19/24 08:00 Progress Note: Objective Labs Labs: Short CBC 09/19/24 Range/Units 05:19 WBC 22.1 H (4.0-11.0) 10^3/uL Hgb 8.3 L (12.0-16.0) g/dL Hct 25.9 L (36.0-48.0) % Plt Count 560 H (150-450) 10^3/uL BMP 09/19/24 05:19 Sodium 136 Potassium 4.3 Chloride 99 Carbon Dioxide 27.0 BUN 9.0 Creatinine 1.17 H Glucose 119 H Calcium 9.0 Liver Function 09/19/24 Range/Units 05:19 Total Bilirubin 0.6 (0.2-1.0) mg/dL AST 16 (15-37) U/L ALT 47 (14-59) U/L Alkaline Phosphatase 364 H (46-116) U/L Albumin 2.0 L (3.4-5.0) g/dL Progress Note: A&P Assessment and Plan (1) Complicated urinary tract infection: Assessment and Plan: Although her urinary tract culture was negative, it seems as though she has pyelonephritis from her stone surgery. It is possible that her blood culture will come back positive. Nevertheless, she needs to be on the broad-spectrum antibiotic that she has been switched to today, and continue with IV fluid resuscitation. Her white count is slightly elevated at 22,000. Her kidney function is slightly improved at creatinine of 1.1. If her kidney function worsens and/or her vitals become compromised then we should reimage her kidney with either a renal ultrasound or a CAT scan to make sure that she is not obstructed by the copious amount of stone debris created during surgery. She has not been getting her bladder spasm medicine until this morning. If we keep her on this somewhat regularly she will achieve more comfort. Of course we have to balance the risks of contributing to constipation with these medicines since we do not have any of the nonanticholinergic bladder spasm medicines at this hospital. For her bowels, adding milk of magnesia 3 tablespoons now and 3 more in [address] Gutierrez is on-call this weekend and she will reevaluate her tomorrow. (2) Sepsis: (3) Renal colic on right side: (4) Pain due to ureteral stent: (5) Post-procedural fever:
[2024-09-19] MEDS: MAGNESIUM HYDROXIDE 2,400 MG/10 ML ORAL.SUSP 3600 MG PO ×2 (13:48→20:14)
--- NOTE | 2024-09-19 15:30 | PM.PN ---
Progress Note: Subjective Subjective Interval history: Seen this afternoon the patient is lying in bed taking a brief nap. She says that she has not had much of an appetite and did not really eat any food today. She has been taking drinks of water. She did take the first dose of Milk of Magnesia ordered by urology with Dr. Ba. The patient says that she is not having any bladder spasms anymore. She continues to have the stent pain and she points to the area over the right kidney. She got a fleets enema this morning which only relieved a little bit of stool but she began passing gas much better after that. Last night she had temperatures up to 103 ?F. Today she has not had any temperatures. Her antibiotics were removed from Rocephin 2 g IV every 24 hours to imipenem. So far she has not had any fevers today. Exam Narrative Exam Narrative: Lying in bed. Resting. Cardiac: Regular rate and rhythm. Pulm: Clear to auscultation anteriorly. Respirations: Easy. No wheezing. GI: Bowel sounds are rather hypoactive to auscultation. Tenderness as expected over the right anterior kidney region. No tenderness anywhere else in the belly. Constitutional Vital Signs, click to edit/add: Last Vital Signs Temp 99.5 F 09/19/24 12:00 Pulse 110 H 09/19/24 12:00 Resp 18 09/19/24 12:00 BP 125/83 09/19/24 12:00 Pulse Ox 94 L 09/19/24 12:00 O2 Del Method Room Air 09/19/24 12:00 O2 Flow Rate 2 09/19/24 08:00 Progress Note: Objective Labs Labs: Short CBC 09/19/24 Range/Units 05:19 WBC 22.1 H (4.0-11.0) 10^3/uL Hgb 8.3 L (12.0-16.0) g/dL Hct 25.9 L (36.0-48.0) % Plt Count 560 H (150-450) 10^3/uL BMP 09/19/24 05:19 Sodium 136 Potassium 4.3 Chloride 99 Carbon Dioxide 27.0 BUN 9.0 Creatinine 1.17 H Glucose 119 H Calcium 9.0 Liver Function 09/19/24 Range/Units 05:19 Total Bilirubin 0.6 (0.2-1.0) mg/dL AST 16 (15-37) U/L ALT 47 (14-59) U/L Alkaline Phosphatase 364 H (46-116) U/L Albumin 2.0 L (3.4-5.0) g/dL Progress Note: A&P Assessment and Plan (1) Complicated urinary tract infection: (2) Sepsis: Qualifiers: Sepsis type: sepsis due to unspecified organism Sepsis acute organ dysfunction status: without acute organ dysfunction Qualified Code(s): A41.9 - Sepsis, unspecified organism (3) Renal colic on right side: (4) Pain due to ureteral stent: Qualifiers: Encounter type: sequela Qualified Code(s): T83.84XS - Pain due to genitourinary prosthetic devices, implants and grafts, sequela (5) Post-procedural fever: Plan Assessment: Complicated bacterial urinary tract infection, with recent right treatment of nephrolithiasis and right ureteral stent placement. High risk bacteremia. Constipation due to medications. Ongoing tachycardia. Ongoing fevers. Elevated creatinine level, present on admission, but improved after IV fluids. Discussion: So far 2 different blood culture sets x 2 are negative. Her urine culture from this day was sent to [facility] and it was collected on 09/17/2024 and it has come back as a final report of less than 9000 colonies of mixed bacterial skin contaminants. The previous urine culture from a couple weeks ago when she had the urologic procedure grew 2 different bacteria with Klebsiella that were all sensitive to all antibiotics. So the exact infecting organism at this time is not known. Plan: Continue IV imipenem. Will provide 2 L of IV fluids today with lactated Ringer's and then reevaluate for the need for IV fluids tomorrow. GI protection with Protonix 40 mg twice daily. Bowel regimen has been intensified by Dr. Ba. Patient may require repeat imaging if she does not make clinical progress over the next 24 to 48 hours.
[2024-09-19] MEDS: BISACODYL 5 MG TABLET 10 MG PO (16:02)
[2024-09-19] MEDS: POLYETHYLENE GLYCOL 3350 17 GM POWDER PACKET PO (21:18)
[2024-09-19] MEDS: LAMOTRIGINE 100 MG TABLET 150 MG PO (21:18)
[2024-09-19] MEDS: SERTRALINE HCL 50 MG TABLET PO (21:18)
[2024-09-19] MEDS: PANTOPRAZOLE SODIUM 40 MG TABLET.DR PO (21:18)
[2024-09-20] VITALS (9 sets, daily range): BP systolic 100–118; BP diastolic 62–78; PULSE 104–120; TEMP 36.8–37.9; O2SAT 91–94
[2024-09-20] MEDS: IMIPENEM/CILASTATIN SODIUM 1,000 MG in 0.9 % SODIUM CHLORIDE 250 ML 250 MG IV ×3 (00:11→17:39)
[2024-09-20] MEDS: PROCHLORPERAZINE 10 MG/2 ML VIAL 5 MG IV ×3 (01:18→15:49)
[2024-09-20] MEDS: HYDROMORPHONE HCL 1 MG/ML CARTRIDGE 1.5 MG IVP ×2 (03:48→08:15)
[2024-09-20 06:48] LABS: Hematocrit 25.8 % (36.0-48.0); Hemoglobin 8.2 g/dL (12.0-16.0); Mean Corpuscular HGB Conc 31.8 g/dL (29.9-35.2); Mean Corpuscular Hemoglobin 25.5 pg (26.7-34.0); Mean Corpuscular Volume 80.1 fL (81.0-99.0); Platelet Count 640 10^3/uL (150-450); Red Blood Count 3.22 10^6/uL (4.20-5.40); White Blood Count 27.8 10^3/uL (4.0-11.0)
[2024-09-20 06:59] LABS: Anion Gap 13.8; Blood Urea Nitrogen 8.0 mg/dL (7.0-18.0); Calcium 9.1 mg/dL (8.5-10.1); Carbon Dioxide 30.4 mmol/L (21.0-32.0); Chloride 97 mmol/L (98-107); Estimated GFR (African America >60 (>=60 mL/min/1.73m^2); Estimated GFR (Non-African Ame >60 (>=60 mL/min/1.73m^2); Glucose 124 mg/dL (74-106); Potassium 4.2 mmol/L (3.5-5.1); Sodium 137 mmol/L (136-145)
[2024-09-20 07:14] LABS: INR 1.20; Partial Thromboplastin Time 31.6 sec (22.3-36.2); Prothrombin Time 12.5 sec (9.0-11.6)
[2024-09-20 07:31] LABS: Basophils Abs Manual 0.00 10^3/uL (0.00-0.10); Basophils Percent Manual 0.0 % (0.2-2.0); Eosinophils Absolute Manual 0.00 10^3/uL (0.00-0.70); Eosinophils Percent Manual 0.0 % (0.9-7.0); Lymphocytes Absolute Manual 5.00 10^3/uL (1.20-3.80); Lymphocytes Percent Manual 18.0 % (20.5-60.0); Monocytes Absolute Manual 0.55 10^3/uL (0.30-0.80); Monocytes Percent Manual 2.0 % (1.7-12.0); Segmented Neut Absolute Manual 22.24 10^3/uL (1.4-6.5); Segmented Neutrophils % Manual 80.0 (43.0-75.0)
[2024-09-20] MEDS: POLYETHYLENE GLYCOL 3350 17 GM POWDER PACKET PO (08:22)
[2024-09-20] MEDS: DOCUSATE SODIUM 100 MG CAPSULE 200 MG PO ×2 (08:22→21:22)
[2024-09-20] MEDS: PANTOPRAZOLE SODIUM 40 MG TABLET.DR PO ×2 (08:23→21:22)
[2024-09-20] MEDS: BISACODYL 5 MG TABLET 10 MG PO (08:23)
[2024-09-20 10:04] LABS: Magnesium 2.1 mg/dL (1.8-2.4)
[2024-09-20] MEDS: POLYETHYLENE GLYCOL 3350 238 GM BOTTLE PO (11:36)
[2024-09-20] MEDS: KETOROLAC TROMETHAMINE 30 MG/ML VIAL IVP ×3 (11:37→21:22)
--- NOTE | 2024-09-20 13:25 | PM.PN ---
Progress Note: Subjective Subjective Interval history: Seen on rounds this morning the patient says that she feels about the same. She still has the right upper quadrant abdominal pain. She has had some nausea. No vomiting. Overnight she did not move her bowels at all. That was after the 2 doses of milk of magnesia that she got yesterday afternoon. Still no bowel movements. She notes that she is not having bladder spasms like she was having before. On blood work her white blood count has risen over the last 4 days from 19.3 up to 20.9 up to 22.1 and then up to 27.8. With IV fluids yesterday her creatinine is improved from 1.49 on September 18 at 1.17 yesterday to 0.99 today. The patient is having a little bit of belching. She denies having much flatus. Yesterday evening up until midnight she was having low-grade temperature elevations up to 100.1 and 100.2. But much better than the 102 degrees and 103 degrees that she was having in the evening of September 18. I discussed with the patient that if the bowel regimen she got this morning does not work I will have her sip on a Gatorade and MiraLAX in the colonoscopy style prep, with help from a Dulcolax suppository, to try and get her bowels moving. We really need those to move today. Given that her creatinine is improved I will put her on IV Toradol. And we can try and reduce her reliance on IV Dilaudid. She is on Protonix 40 mg twice daily. Exam Narrative Exam Narrative: General: Exam is unchanged from yesterday. She looks about the same. Still has a moderate amount of right upper quadrant abdominal pain. Pulmonary: Auscultating anteriorly lungs are clear. No wheezing. Respirations calm and easy. Cardiac: Regular rate and rhythm. No murmurs auscultation. GI: Bowel sounds are present but mildly hypoactive. No acute peritoneal signs. Very tender in the right upper quadrant, similar to the way that she was yesterday. Skin is warm dry and well-perfused. Constitutional Vital Signs, click to edit/add: Last Vital Signs Temp 98.8 F 09/20/24 11:47 Pulse 106 H 09/20/24 11:47 Resp 18 09/20/24 11:47 BP 112/78 09/20/24 11:47 Pulse Ox 93 L 09/20/24 11:47 O2 Del Method Nasal Cannula 09/20/24 11:47 O2 Flow Rate 2 09/20/24 11:47 Progress Note: Objective Labs Labs: Short CBC 09/20/24 Range/Units 06:19 WBC 27.8 H (4.0-11.0) 10^3/uL Hgb 8.2 L (12.0-16.0) g/dL Hct 25.8 L (36.0-48.0) % Plt Count 640 H (150-450) 10^3/uL BMP 09/20/24 06:19 Sodium 137 Potassium 4.2 Chloride 97 L Carbon Dioxide 30.4 BUN 8.0 Creatinine 0.99 Glucose 124 H Calcium 9.1 Progress Note: A&P Assessment and Plan (1) Complicated urinary tract infection: (2) Renal colic on right side: (3) Pain due to ureteral stent: Qualifiers: Encounter type: sequela Qualified Code(s): T83.84XS - Pain due to genitourinary prosthetic devices, implants and grafts, sequela (4) Constipation by delayed colonic transit: Plan Assessment: Complicated bacterial urinary tract infection. Severe constipation. Exact infectious etiology is not clear. Blood cultures x 2 are negative and the urine culture that was obtained when she first came in just grew mild bacterial skin contaminants. Plan: Continue IV imipenem. Start Toradol today to reduce her reliance on IV Dilaudid. Bowel regimen is intensified today. Protonix 40 mg p.o. twice daily. I did discuss the case by telephone with urology with Dr. Segura.
[2024-09-20] MEDS: SOLIFENACIN SUCCINATE 10 MG TABLET PO (15:00)
[2024-09-20] MEDS: PROMETHAZINE HCL 25 MG in 0.9 % SODIUM CHLORIDE 50 ML 204 MG IV (19:17)
[2024-09-20] MEDS: HYDROMORPHONE HCL 1 MG/ML CARTRIDGE IVP (20:41)
[2024-09-20] MEDS: SERTRALINE HCL 50 MG TABLET PO (21:22)
[2024-09-20] MEDS: LAMOTRIGINE 100 MG TABLET 150 MG PO (21:22)
[2024-09-21] VITALS (10 sets, daily range): BP systolic 98–122; BP diastolic 57–82; PULSE 95–113; TEMP 36.8–37.7; O2SAT 88–95
[2024-09-21] MEDS: IMIPENEM/CILASTATIN SODIUM 1,000 MG in 0.9 % SODIUM CHLORIDE 250 ML 250 MG IV ×2 (00:06→08:14)
[2024-09-21] MEDS: PROCHLORPERAZINE 10 MG/2 ML VIAL 5 MG IV ×2 (01:24→08:04)
[2024-09-21] MEDS: KETOROLAC TROMETHAMINE 30 MG/ML VIAL IVP (04:43)
[2024-09-21 06:10] LABS: Hematocrit 25.6 % (36.0-48.0); Hemoglobin 8.4 g/dL (12.0-16.0); Mean Corpuscular HGB Conc 32.8 g/dL (29.9-35.2); Mean Corpuscular Hemoglobin 26.0 pg (26.7-34.0); Mean Corpuscular Volume 79.3 fL (81.0-99.0); Platelet Count 783 10^3/uL (150-450); Red Blood Count 3.23 10^6/uL (4.20-5.40); White Blood Count 25.5 10^3/uL (4.0-11.0)
[2024-09-21 06:12] LABS: Anion Gap 10.5; Blood Urea Nitrogen 10.0 mg/dL (7.0-18.0); Calcium 9.1 mg/dL (8.5-10.1); Carbon Dioxide 30.4 mmol/L (21.0-32.0); Chloride 99 mmol/L (98-107); Estimated GFR (African America >60 (>=60 mL/min/1.73m^2); Estimated GFR (Non-African Ame >60 (>=60 mL/min/1.73m^2); Glucose 113 mg/dL (74-106); Magnesium 2.3 mg/dL (1.8-2.4); Potassium 3.9 mmol/L (3.5-5.1); Sodium 136 mmol/L (136-145)
[2024-09-21 06:26] LABS: Basophils Abs Manual 0.00 10^3/uL (0.00-0.10); Basophils Percent Manual 0.0 % (0.2-2.0); Eosinophils Absolute Manual 0.25 10^3/uL (0.00-0.70); Eosinophils Percent Manual 1.0 % (0.9-7.0); Lymphocytes Absolute Manual 2.55 10^3/uL (1.20-3.80); Lymphocytes Percent Manual 10.0 % (20.5-60.0); Monocytes Absolute Manual 0.76 10^3/uL (0.30-0.80); Monocytes Percent Manual 3.0 % (1.7-12.0); Segmented Neut Absolute Manual 21.93 10^3/uL (1.4-6.5); Segmented Neutrophils % Manual 86.0 (43.0-75.0)
[2024-09-21] MEDS: PANTOPRAZOLE SODIUM 40 MG TABLET.DR PO ×2 (08:04→21:19)
[2024-09-21] MEDS: TAMSULOSIN HCL 0.4 MG CAPSULE PO (08:04)
[2024-09-21] MEDS: HYDROMORPHONE HCL 1 MG/ML CARTRIDGE IVP (08:14)
--- NOTE | 2024-09-21 09:59 | PM.PN ---
Progress Note: Subjective Subjective Interval history: Yesterday the patient did take bowel regimen, including colonoscopy style MiraLAX with Gatorade, and did move her bowels. Later, in the afternoon, she did vomit about 300 mL. She then vomited a little bit more yesterday afternoon. She says that she notices that at nighttime when she sleeps she gets some jumpy reactions. She will notice that her arms are jumping while she is sleeping. This morning she has nausea. She has been able to eat a little bit of food. She has not had any vomiting today. She told the bedside nurse that her bowel movements were liquid. She still has tremendous amount of pain in the right upper quadrant. Really no pain over the bladder. No bladder spasms. Exam Narrative Exam Narrative: General: Reclining in bed. in the room. Mother on telephone on speaker-phone in the room. Awake. Alert. Generally nontoxic. Pulmonary: Clear to auscultation throughout. No wheezing. Cardiac: Regular rate to auscultation, no murmurs auscultation. GI: She has really nice and active bowel sounds today. No acute peritoneal signs. Still a tremendous amount of pain in the right upper quadrant. Constitutional Vital Signs, click to edit/add: Last Vital Signs Temp 98.6 F 09/21/24 07:37 Pulse 100 H 09/21/24 08:22 Resp 18 09/21/24 07:37 BP 113/76 09/21/24 07:37 Pulse Ox 92 L 09/21/24 08:22 O2 Del Method Room Air 09/21/24 07:37 O2 Flow Rate 2 09/20/24 15:47 Progress Note: Objective Labs Labs: Short CBC 09/21/24 Range/Units 05:30 WBC 25.5 H (4.0-11.0) 10^3/uL Hgb 8.4 L (12.0-16.0) g/dL Hct 25.6 L (36.0-48.0) % Plt Count 783 H (150-450) 10^3/uL BMP 09/21/24 05:30 Sodium 136 Potassium 3.9 Chloride 99 Carbon Dioxide 30.4 BUN 10.0 Creatinine 1.02 Glucose 113 H Calcium 9.1 Progress Note: A&P Assessment and Plan (1) Complicated urinary tract infection: (2) Renal colic on right side: (3) Pain due to ureteral stent: Qualifiers: Encounter type: sequela Qualified Code(s): T83.84XS - Pain due to genitourinary prosthetic devices, implants and grafts, sequela (4) Constipation by delayed colonic transit: Plan After I saw the patient I had a telephone conversation with Dr. Paola Segura, on-call this weekend for urology. The patient's white blood count did improve a tiny bit. But her platelet count continues to increase. We will recommend that the patient get a CT scan of her abdomen and pelvis, to follow-up on 1 from a few days ago. Her creatinine has been stable so it is okay for her to get IV CT scan contrast. Her white blood count was 27.8 yesterday and improved a little bit to 25.5 today. Her platelet count had started about 500 when this problem began and has increased daily. Yesterday it was 640. Today it is 783. The patient is still requiring IV pain medications with Dilaudid every 4 hours and IV Toradol. She has been getting antinausea medicines with IV Compazine regularly. Today will switch nausea medications to IV Reglan. It turns out that this hospital does stock IV Tylenol so I will use doses of that to see if we can reduce her reliance on the IV Dilaudid. Assessment: Complicated bacterial urinary tract infection, after lithotripsy to the right kidney. Severe constipation. Exact infectious etiology is not clear. Blood cultures x 2 are negative and the urine culture that was obtained when she first came in just grew mild bacterial skin contaminants. Plan: Continue IV imipenem. IV Tylenol today in addition to the scheduled IV Toradol. Switch antiemetics from IV Compazine to IV Reglan. Protonix 40 mg p.o. twice daily. Repeat CT scan of the abdomen pelvis, with IV contrast. 10:13 am +++ +++ [address] scan of the abdomen pelvis is completed, this time with IV contrast. I then had a telephone discussion with urology with Dr. Paola Segura, radiology with Dr. Lanre Sal, and review of the CT images with Dr. Paola Segura. The right kidney has a variety of changed areas in the intracapsular region, which are felt to be most likely due to a perinephric hematoma. There is also an incidental finding of a tiny right-sided pleural effusion and some airspace opacity right along the diaphragm on the right side. This could be either atelectasis or pneumonia. I then gave verbal results to the patient. On 09/06/2024 her hemoglobin was 11.9. When she presented to this hospital (09/17) her hemoglobin was 9.4. Then it went as low as 8.3 (on 09/19) and over the last couple days it has gotten a little bit better at 8.4 today. This favors the intracapsular hematoma. I discussed with the patient that at this time there is no specific treatment. As long as the hemoglobin stays stable and there is no evidence of active bleeding this can just be monitored conservatively. Over time her body will begin to gently reabsorb the blood products and she should feel the pain in her kidney gradually get better. I did tell the patient that if it were to develop evidence of bleeding again, such as a dramatic drop in hemoglobin or onset of low blood pressures, then she would need to be transferred to a tertiary care center for interventional radiology to embolize the source of bleeding. I discussed with the patient that if there had been evidence of abscess formation then she would have needed to be transferred to a tertiary care center for needle drainage of the abscess. I told the patient that this hematoma collection may be imaged again in the next few days by renal ultrasound, depending on her clinical progress. The patient asked about being able to go home. The right kidney pain is improved from a 9 this morning down to a 5 now. She did get a dose of the IV Tylenol. She has gotten 1 dose of the IV Reglan. She has been eating some food during the daytime today. She is making plenty of urine. She does notice that if she moves a certain way the right kidney pain is much worse. I did tell her that we need to take this 1 day at a time and that when she goes home her pain will need to be manageable with light daily activities. I did prevocational/rehabilitation counselor the patient that she must not have any strenuous physical activity. She can have light activity such as walking around the room and sitting in the chair. She can have a shower as long as she does it very lightly and carefully. Given the presence of the hematoma we will avoid NSAIDs, and I have canceled the order for Toradol that she had been getting over the last 24 hours. The patient asked what medications she could use at home in that setting and I said that she could use Tylenol with oxycodone for breakthrough pain. We will use a sleeve compression devices for DVT prophylaxis. The patient expressed understanding and had no additional questions at the end of my session with her.
--- NOTE | 2024-09-21 10:05 | CT_ITS ---
The [address] [address] Patient Name: LEONA GOODSON MRN: [id number] date: 1995 Sex: F Assigned Patient Location: [place] Current Patient Location: [place] Accession/Order Number: [id number] Exam Date: 09/21/2024 14:07 Report Date: 09/21/2024 14:16 At the request of: NILA SALDIVAR Procedure: CT abdomen pelvis w con CT abdomen pelvis w con 09/21/2024 10:08 AM SIGNS AND SYMPTOMS: Right flank pain, vomiting TECHNIQUE: Multidetector ct axial images of the abdomen and pelvis were obtained with IV contrast. Multiplanar reformats were performed and reviewed to further define anatomy and possible pathology. CT was performed with one or more of the following dose reduction techniques: Automated exposure control, adjustment of the mA and/or kV according to patient size, or use of iterative reconstruction technique. COMPARISON: 09/18/2024 FINDINGS: Lower Chest: There is right basilar airspace opacity with scarring in the right middle lobe. There is a small right-sided pleural effusion. This may represent sequelae of pneumonia or dependent atelectasis. ABDOMEN: Liver: Within normal limits. Bile Ducts: Normal caliber. Gallbladder: No calcified gallstones. Normal caliber wall. Pancreas: Within normal limits. Spleen: Within normal limits. Adrenals: Within normal limits. Kidneys: There are stone fragments in the right renal collecting system similar to the prior exam. A right-sided ureteral stent is noted in the right renal pelvis. There is better visualization of an intracapsular hematoma on the right measuring 7 x 5 x 12 mm in greatest dimension compressing the normal right renal cortex. This is largest near the superior pole. Layering subacute blood products are noted dependently. This is significantly better visualized with the addition of intravenous contrast on the current study. Nonobstructing renal stones are redemonstrated on the left. Pelvis: Reproductive Organs: No pelvic masses. Ureters: A right-sided ureteral stent is redemonstrated. Fat stranding surrounds the right ureter. Bladder: Within normal limits. Bowel: Normal caliber. Mesenteric Lymph Nodes: No enlarged mesenteric lymph nodes. Peritoneum: No ascites or free air, no fluid collection. Vessels: within normal limits Retroperitoneum: There is fluid in the right paracolic gutter and along the retroperitoneum along the psoas muscle. This is more prominent when compared to the prior exam. Abdominal Wall: Within normal limits. Bones: Degenerative changes are noted in the sacral iliac joints. CT/CT abdomen pelvis w con IMPRESSION: There is better visualization of an intracapsular hematoma on the right measuring 7 x 5 x 12 mm in greatest dimension compressing the normal right renal cortex. This is largest near the superior pole. Layering subacute blood products are noted dependently. This is significantly better visualized with the addition of intravenous contrast on the current study. Nonobstructing renal stones are redemonstrated on the left. There is fluid in the right paracolic gutter and along the retroperitoneum along the psoas muscle. This is more prominent when compared to the prior exam. A right-sided ureteral stent is redemonstrated. Nonobstructing renal stones and stone fragments are noted bilaterally, unchanged when compared to the prior exam. There is right basilar airspace opacity with scarring in the right middle lobe. There is a small right-sided pleural effusion. This may represent sequelae of pneumonia or dependent atelectasis. This is worse when compared to the prior exam. Impression dictated by: Lanre Sal M.D. 09/21/2024 2:16 PM Dictation Location: [place] [address] Electronically authenticated by: [id number] Y Date: 09/21/2024 14:16
[2024-09-21] MEDS: ACETAMINOPHEN 1,000 MG/100 ML PREMIX 400 MG IV ×2 (10:35→16:44)
[2024-09-21] MEDS: 0.9 % SODIUM CHLORIDE 1,000 ML 150 ML IV (10:35)
[2024-09-21] MEDS: METOCLOPRAMIDE HCL 10 MG/2 ML VIAL IVP (14:29)
[2024-09-21] MEDS: ERTAPENEM SODIUM 1 GM in 0.9 % SODIUM CHLORIDE 50 ML IV (16:11)
[2024-09-21] MEDS: LIDOCAINE 5% PATCH 1 PATCH TOPICAL (16:11)
[2024-09-21] MEDS: OXYCODONE HCL 5 MG TABLET 10 MG PO ×2 (18:25→23:46)
[2024-09-21] MEDS: LAMOTRIGINE 100 MG TABLET 150 MG PO (21:19)
[2024-09-21] MEDS: SERTRALINE HCL 50 MG TABLET PO (21:19)
[2024-09-21] MEDS: DOCUSATE SODIUM 100 MG CAPSULE 200 MG PO (21:19)
[2024-09-21] MEDS: CARIPRAZINE 3 MG 3 EACH PO (21:20)
[2024-09-22] VITALS (21 sets, daily range): BP systolic 94–127; BP diastolic 61–87; PULSE 84–110; TEMP 36.8–37.5; O2SAT 92–96
[2024-09-22] MEDS: METOCLOPRAMIDE HCL 10 MG/2 ML VIAL IVP ×4 (00:26→23:12)
[2024-09-22] MEDS: HYDROMORPHONE HCL 1 MG/ML CARTRIDGE IVP ×2 (04:14→08:50)
[2024-09-22] MEDS: REMOVE PATCH 1 PATCH TOPICAL (05:19)
[2024-09-22 06:35] LABS: Anion Gap 9.7; Blood Urea Nitrogen 10.0 mg/dL (7.0-18.0); Calcium 9.0 mg/dL (8.5-10.1); Carbon Dioxide 28.3 mmol/L (21.0-32.0); Chloride 97 mmol/L (98-107); Estimated GFR (African America >60 (>=60 mL/min/1.73m^2); Estimated GFR (Non-African Ame >60 (>=60 mL/min/1.73m^2); Glucose 104 mg/dL (74-106); Potassium 4.0 mmol/L (3.5-5.1); Sodium 131 mmol/L (136-145)
[2024-09-22 06:37] LABS: Magnesium 2.0 mg/dL (1.8-2.4)
[2024-09-22 07:06] LABS: Hemoglobin 7.7 g/dL (12.0-16.0); Immature Granulocytes Abs Auto 0.23 10^3/uL (0.00-0.03); Immature Granulocytes Pct Auto 1.0 % (0.0-0.5); Lymphocytes Absolute Auto 2.8 10^3/uL (1.2-3.8); Mean Corpuscular HGB Conc 32.5 g/dL (29.9-35.2); Mean Corpuscular Hemoglobin 25.8 pg (26.7-34.0); Mean Corpuscular Volume 79.5 fL (81.0-99.0); Platelet Count 783 10^3/uL (150-450); Red Blood Count 2.98 10^6/uL (4.20-5.40); White Blood Count 23.9 10^3/uL (4.0-11.0)
[2024-09-22 07:35] LABS: Hematocrit 23.7 % (36.0-48.0)
--- NOTE | 2024-09-22 07:54 | PC.NURSE ---
Dr. Lees notified at 0743 of CBC results, VS, pain control reported, and CT report from yesterday. Dr. Lees told RN to notify urology. Dr. Segura with urology was notified of CBC results, VS, pain control reported, and CT report from yesterday at 0748. Dr. Segura said to notify hospitalist station inspector (Dr. Urena.) Dr. Urena called at 0753 with report of VS, CBC results, CT results and what urology said. Dr. Urena told RN he was on his way in and will be on the floor shortly.
--- NOTE | 2024-09-22 09:10 | PC.NURSE ---
Dr. Urena rounding on floor. Dr. Urena told RN that he is unable to place orders at this time and asked RN to place orders for blood transfusion protocol. Asked RN to place orders for type and screen and transfuse 2 units of packed red blood cells. Please see orders entered via verbal order read back. No further orders at this time.
--- NOTE | 2024-09-22 10:15 | CM.NOTE ---
Rounds made with Dr. Urena, pt continues to c/o R sided abdominal pain. Pt and requesting transfer to higher level of care. Dr. Urena explained lab work and CT findings with pt and answered all questions. Dr. Urena will start transfer process. Pt will get transfusion today and will change pain medication to help control pain.
[2024-09-22] MEDS: 0.9 % SODIUM CHLORIDE 250 ML 10 ML IV ×3 (11:55→17:09)
[2024-09-22] MEDS: KETOROLAC TROMETHAMINE 30 MG/ML VIAL 15 MG IVP ×2 (12:40→18:11)
--- NOTE | 2024-09-22 12:48 | CM.NOTE ---
Called [facility] transfer line to start transfer process and spoke with bed coordinator.
--- NOTE | 2024-09-22 13:10 | CM.NOTE ---
Facesheet faxed to [facility] [phone]
--- NOTE | 2024-09-22 13:18 | CM.NOTE ---
[facility] called back and will not be able to accept pt in transfer. Called [facility] transfer line to initiate transfer. Updated Dr. Urena and pt.
--- NOTE | 2024-09-22 14:48 | CM.NOTE ---
[facility] accepted pt and awaiting bed availability. Updated pt and .
--- NOTE | 2024-09-22 15:14 | PM.PN ---
Progress Note: Subjective Subjective Interval history: Seen and evaluated this morning, she is currently lying in bed with head of bed elevated 30 degrees. Her boyfriend and mother are present at bedside. Patient still has the right sided abdominal discomfort which radiates around her back to her costovertebral angle. She has questions pertaining to why she is requiring a blood transfusion today, her boyfriend has numerous questions about overall management, why she does not seem to be improving and ultimately inquires about transfer to a larger hospital for further management/intervention/second opinion. Answered all questions best my ability, ensured the patient that we will keep her on the same antibiotics, there is evidence of a hematoma on CT scan but that her hemoglobin is only a small drop from yesterday and that the transfusion is more of a precaution than the necessity. Patient and her family are initially requesting looking into [facility] for transfer, I did let know that I would start there. Exam Narrative Exam Narrative: General: Awake and alert, appears uncomfortable and tired but no overall distress HEENT: Normocephalic, atraumatic, no scleral icterus noted Lungs: Clear to auscultation bilaterally Cardiac: Regular rate and rhythm, no murmurs appreciated GI: Soft, she does appear to be diffusely tender in her abdomen though it is focused primarily on the right quadrant, this does wrap around to her costovertebral angle. Extremities: Active and passive range of motion intact throughout, no edema Neuro: Cranial nerves II through XII intact, no focal deficits noted Skin: No rashes or lesions, no signs of jaundice Constitutional Vital Signs, click to edit/add: Last Vital Signs Temp 98.4 F 09/22/24 14:49 Pulse 93 H 09/22/24 14:49 Resp 18 09/22/24 14:49 BP 108/75 09/22/24 14:49 Pulse Ox 94 L 09/22/24 14:49 O2 Del Method Room Air 09/22/24 14:49 O2 Flow Rate 1 09/22/24 04:00 Progress Note: Objective Labs Labs: Short CBC 09/22/24 Range/Units 06:59 WBC 23.9 H (4.0-11.0) 10^3/uL Hgb 7.7 L (12.0-16.0) g/dL Hct 23.7 L* (36.0-48.0) % Plt Count 783 H (150-450) 10^3/uL BMP 09/22/24 06:03 Sodium 131 L Potassium 4.0 Chloride 97 L Carbon Dioxide 28.3 BUN 10.0 Creatinine 1.01 Glucose 104 Calcium 9.0 Progress Note: A&P Assessment and Plan (1) Perinephric hematoma: Assessment and Plan: ? Continue with supportive care, pain control as ordered ? I did continue her Toradol today 50 mg IV push every 6 hours for pain, this does seem to work best for her ? She will receive 2 units PRBC today as precautionary measure as her hemoglobin tended to trend down to 7.7 today ? Did reach out to [facility] in [place], she is accepted and is currently pending a bed availability. ? Urology on consult, I did speak with them numerous times today. ? Continue ertapenem as ordered despite negative blood and urine cultures. Her white count is persistently elevated. (2) Complicated urinary tract infection: Assessment and Plan: See above (3) Renal colic on right side: Assessment and Plan: See above, supportive care and pain management (4) Pain due to ureteral stent: Qualifiers: Encounter type: sequela Qualified Code(s): T83.84XS - Pain due to genitourinary prosthetic devices, implants and grafts, sequela (5) Constipation by delayed colonic transit: Plan ? DVT prophylaxis addressed with SCDs ? Regular diet as tolerated ? Full code Accepted in transfer to [facility], pending bed availability
[2024-09-22] MEDS: ERTAPENEM SODIUM 1 GM in 0.9 % SODIUM CHLORIDE 50 ML IV (17:09)
--- NOTE | 2024-09-22 17:22 | P.PN_ITS ---
Progress Note: Subjective Subjective Interval history: Seen and evaluated this morning, she is currently lying in bed with head of bed elevated 30 degrees. Her boyfriend and mother are present at bedside. Patient still has the right sided abdominal discomfort which radiates around her back to her costovertebral angle. She has questions pertaining to why she is requiring a blood transfusion today, her boyfriend has numerous questions about overall management, why she does not seem to be improving and ultimately inquires about transfer to a larger hospital for further management/intervention/second opinion. Answered all questions best my ability, ensured the patient that we will keep her on the same antibiotics, there is evidence of a hematoma on CT scan but that her hemoglobin is only a small drop from yesterday and that the transfusion is more of a precaution than the necessity. Patient and her family are initially requesting looking into [facility] for transfer, I did let know that I would start there. 09/22: She has just completed her second of 2 units of packed red blood cells. She is feeling quite a bit better at this time. Her vital signs are stable. Her blood pressure is 108/58. Her pulse is trending downward at 89. She is voiding well. She is apparently getting scheduled IV Toradol now for pain. She seems quite comfortable at this time. Exam Constitutional Vital Signs, click to edit/add: Last Vital Signs Temp 98.7 F 09/22/24 15:49 Pulse 90 09/22/24 15:49 Resp 18 09/22/24 15:49 BP 105/72 09/22/24 15:49 Pulse Ox 94 L 09/22/24 15:49 O2 Del Method Room Air 09/22/24 15:49 O2 Flow Rate 1 09/22/24 04:00 Progress Note: Objective Labs Labs: Short CBC 09/22/24 Range/Units 06:59 WBC 23.9 H (4.0-11.0) 10^3/uL Hgb 7.7 L (12.0-16.0) g/dL Hct 23.7 L* (36.0-48.0) % Plt Count 783 H (150-450) 10^3/uL BMP 09/22/24 06:03 Sodium 131 L Potassium 4.0 Chloride 97 L Carbon Dioxide 28.3 BUN 10.0 Creatinine 1.01 Glucose 104 Calcium 9.0 Progress Note: A&P Assessment and Plan (1) Perinephric hematoma: Assessment and Plan: She has a subcapsular hematoma by CT scan. Her hemoglobin presumedly is near 10 after receiving 2 units of blood. Her vitals are stable. Her white count is trending downwards. Today it is 23.9 thousand. I would check an H&H in about an hour and then in the morning and see where we stand. If she begins to trickle downward with her hemoglobin we then may need to get a CT angiogram to attempt to find a location of active bleeding from the right kidney. If this is found, it then can most likely get embolized by interventional radiology in [place] rather handily. Regarding the Toradol, I would recommend to keep this as a as needed drug versus a scheduled drug. (2) Complicated urinary tract infection: (3) Renal colic on right side: (4) Pain due to ureteral stent: Qualifiers: Encounter type: sequela Qualified Code(s): T83.84XS - Pain due to genitourinary prosthetic devices, implants and grafts, sequela (5) Constipation by delayed colonic transit:
[2024-09-22] MEDS: LIDOCAINE 5% PATCH 1 PATCH TOPICAL (18:11)
[2024-09-22 18:15] LABS: Hematocrit 31.8 % (36.0-48.0); Hemoglobin 10.6 g/dL (12.0-16.0)
[2024-09-22] MEDS: LAMOTRIGINE 100 MG TABLET 150 MG PO (21:18)
[2024-09-22] MEDS: PANTOPRAZOLE SODIUM 40 MG TABLET.DR PO (21:18)
[2024-09-22] MEDS: DOCUSATE SODIUM 100 MG CAPSULE 200 MG PO (21:19)
[2024-09-22] MEDS: SERTRALINE HCL 50 MG TABLET PO (21:19)
[2024-09-22] MEDS: CARIPRAZINE 3 MG 3 EACH PO (21:21)
[2024-09-23] MEDS: KETOROLAC TROMETHAMINE 30 MG/ML VIAL 15 MG IVP ×4 (00:12→18:49)
[2024-09-23 04:00] VITALS: BP 114/77; PULSE 84; TEMP 37.6; O2SAT 92
[2024-09-23 05:53] LABS: Hematocrit 30.1 % (36.0-48.0); Hemoglobin 10.2 g/dL (12.0-16.0); Immature Granulocytes Abs Auto 0.25 10^3/uL (0.00-0.03); Immature Granulocytes Pct Auto 1.2 % (0.0-0.5); Lymphocytes Absolute Auto 2.8 10^3/uL (1.2-3.8); Mean Corpuscular HGB Conc 33.9 g/dL (29.9-35.2); Mean Corpuscular Hemoglobin 27.0 pg (26.7-34.0); Mean Corpuscular Volume 79.6 fL (81.0-99.0); Platelet Count 811 10^3/uL (150-450); Red Blood Count 3.78 10^6/uL (4.20-5.40); White Blood Count 21.3 10^3/uL (4.0-11.0)
[2024-09-23] MEDS: METOCLOPRAMIDE HCL 10 MG/2 ML VIAL IVP ×2 (06:14→12:39)
[2024-09-23 06:16] LABS: Anion Gap 14.9; Blood Urea Nitrogen 14.0 mg/dL (7.0-18.0); Calcium 9.2 mg/dL (8.5-10.1); Carbon Dioxide 25.4 mmol/L (21.0-32.0); Chloride 99 mmol/L (98-107); Estimated GFR (African America >60 (>=60 mL/min/1.73m^2); Estimated GFR (Non-African Ame >60 (>=60 mL/min/1.73m^2); Glucose 104 mg/dL (74-106); Potassium 4.3 mmol/L (3.5-5.1); Sodium 135 mmol/L (136-145)
[2024-09-23] MEDS: REMOVE PATCH 1 PATCH TOPICAL (06:19)
[2024-09-23 06:29] LABS: Magnesium 2.4 mg/dL (1.8-2.4)
[2024-09-23] MEDS: DOCUSATE SODIUM 100 MG CAPSULE 200 MG PO ×2 (08:52→21:07)
[2024-09-23] MEDS: PANTOPRAZOLE SODIUM 40 MG TABLET.DR PO ×2 (08:52→21:07)
[2024-09-23 08:54] VITALS: BP 103/70; PULSE 96; TEMP 36.7; O2SAT 93
[2024-09-23] MEDS: OXYCODONE HCL 5 MG TABLET 10 MG PO (11:15)
[2024-09-23] MEDS: TAMSULOSIN HCL 0.4 MG CAPSULE PO (11:15)
[2024-09-23 11:17] VITALS: O2SAT 95
[2024-09-23 12:00] VITALS: BP 109/74; PULSE 90; TEMP 36.7; O2SAT 93
[2024-09-23] MEDS: ACETAMINOPHEN 1,000 MG/100 ML PREMIX 400 MG IV (12:39)
--- NOTE | 2024-09-23 15:04 | P.PN_ITS ---
Progress Note: Subjective Subjective Interval history: When I see the patient on rounds this afternoon to her mother is just got home. Her mother had brought in the patient's children, so they could see each other. The patient explains that she feels like her pain is getting better. The pain is now more on the back instead of the right upper quadrant. She says that she had been reading about stent pain and read that if she lay with that right side down that would help with the pain. She continues to have a lot of nausea. She ate a hearty breakfast but then vomited it back up. And so she has not really been using oral pain medications because she is worried that she will vomit them and then have to wait a while before she can get another dose of pain medicines. She explains that at home, before this acute situation, she always had a lot of nausea and a very sensitive stomach. She described that even a fan blowing on her with cool air would cause her to feel nauseous. Along the way we have tried a variety of different antinausea medicines. The patient thinks that the 1 that worked best was the singular dose of IV Phenergan that she got. I did tell the patient that we have oral Phenergan, and that would be something that she could use at home, but she does not want rely on oral pills at this time. She says that she had a regular bowel movement. Not having any headache. Not coughing. No fevers or chills. No diaphoresis. No night sweats. Later, after my visit, I discussed the case with urology with Dr. Ba by phone. The plan is to continue the antibiotics with ertapenem, recheck BMP and CBC in the morning, and if she continues to make clinical progress she could theoretically be discharged home tomorrow. Exam Narrative Exam Narrative: General: Lying in bed, lying with her right side down, which is new for her. Back: She does have pain in the costovertebral angle, as expected. The rest of her back is normal. No visible bruising. Pulmonary: Clear to auscultation throughout. No wheezing. No crackles. No cough. Cardiac: Regular rate and rhythm. No murmurs to auscultation. Lower extremities: No edema. GI: Bowel sounds are nice and normal active. cutting machine tender helper in the right upper quadrant. Constitutional Vital Signs, click to edit/add: Last Vital Signs Temp 98.1 F 09/23/24 12:00 Pulse 90 09/23/24 12:00 Resp 16 09/23/24 12:00 BP 109/74 09/23/24 12:00 Pulse Ox 93 L 09/23/24 12:00 O2 Del Method Room Air 09/23/24 12:00 O2 Flow Rate 1 09/22/24 04:00 Progress Note: Objective Labs Labs: Short CBC 09/22/24 09/23/24 Range/Units 18:05 05:45 WBC 21.3 H (4.0-11.0) 10^3/uL Hgb 10.6 L 10.2 L (12.0-16.0) g/dL Hct 31.8 L 30.1 L (36.0-48.0) % Plt Count 811 H (150-450) 10^3/uL BMP 09/23/24 05:45 Sodium 135 L Potassium 4.3 Chloride 99 Carbon Dioxide 25.4 BUN 14.0 Creatinine 1.00 Glucose 104 Calcium 9.2 Progress Note: A&P Assessment and Plan (1) Perinephric hematoma: (2) Complicated urinary tract infection: (3) Renal colic on right side: (4) Pain due to ureteral stent: Qualifiers: Encounter type: sequela Qualified Code(s): T83.84XS - Pain due to genitourinary prosthetic devices, implants and grafts, sequela (5) Constipation by delayed colonic transit: Plan Perinephric hematoma. Persistent leukocytosis. Acute blood loss anemia, treated with 2 units of PRBCs on 10/23/2024. ? Continue with supportive care, pain control as ordered ? Toradol 15 mg IV push every 6 hours for pain, this does seem to work best for her ? Switching antinausea medicines from IV Reglan to IV Compazine, as Compazine would be something that she could use at home. ? Still no bed availability at [facility]. However I suspect that the patient does not need any endovascular procedures. Hopefully she will continue along this trend. ? Urology on consult. ? Continue ertapenem as ordered despite negative blood and urine cultures. Her white count is persistently elevated.
[2024-09-23] MEDS: LIDOCAINE 5% PATCH 1 PATCH TOPICAL (16:43)
[2024-09-23] MEDS: PROCHLORPERAZINE 10 MG/2 ML VIAL IV (16:44)
[2024-09-23] MEDS: ERTAPENEM SODIUM 1 GM in 0.9 % SODIUM CHLORIDE 50 ML IV (16:44)
[2024-09-23 20:00] VITALS: BP 116/79; PULSE 82; TEMP 36.9; O2SAT 95
[2024-09-23] MEDS: LAMOTRIGINE 100 MG TABLET 150 MG PO (21:07)
[2024-09-23] MEDS: SERTRALINE HCL 50 MG TABLET PO (21:07)
[2024-09-23] MEDS: CARIPRAZINE 3 MG 3 EACH PO (21:08)
[2024-09-23] MEDS: HYDROMORPHONE HCL 1 MG/ML CARTRIDGE IVP (22:05)
[2024-09-23 23:52] VITALS: BP 102/71; PULSE 94; TEMP 37.7; O2SAT 94
[2024-09-24] MEDS: KETOROLAC TROMETHAMINE 30 MG/ML VIAL 15 MG IVP ×2 (01:45→08:10)
[2024-09-24 04:00] VITALS: BP 102/69; PULSE 91; TEMP 37.4; O2SAT 93
[2024-09-24] MEDS: REMOVE PATCH 1 PATCH TOPICAL (04:17)
[2024-09-24 06:14] LABS: Hematocrit 31.7 % (36.0-48.0); Hemoglobin 10.6 g/dL (12.0-16.0); Immature Granulocytes Abs Auto 0.20 10^3/uL (0.00-0.03); Immature Granulocytes Pct Auto 0.9 % (0.0-0.5); Lymphocytes Absolute Auto 3.3 10^3/uL (1.2-3.8); Mean Corpuscular HGB Conc 33.4 g/dL (29.9-35.2); Mean Corpuscular Hemoglobin 26.9 pg (26.7-34.0); Mean Corpuscular Volume 80.5 fL (81.0-99.0); Platelet Count 964 10^3/uL (150-450); Red Blood Count 3.94 10^6/uL (4.20-5.40); White Blood Count 21.8 10^3/uL (4.0-11.0)
[2024-09-24 06:30] LABS: Anion Gap 13.4; Blood Urea Nitrogen 17.0 mg/dL (7.0-18.0); Calcium 8.9 mg/dL (8.5-10.1); Carbon Dioxide 25.8 mmol/L (21.0-32.0); Chloride 99 mmol/L (98-107); Estimated GFR (African America >60 (>=60 mL/min/1.73m^2); Estimated GFR (Non-African Ame >60 (>=60 mL/min/1.73m^2); Glucose 110 mg/dL (74-106); Potassium 4.2 mmol/L (3.5-5.1); Sodium 134 mmol/L (136-145)
[2024-09-24 07:51] VITALS: BP 127/66; PULSE 86; TEMP 37.4; O2SAT 95
[2024-09-24] MEDS: PANTOPRAZOLE SODIUM 40 MG TABLET.DR PO (08:11)
[2024-09-24] MEDS: PROCHLORPERAZINE 10 MG/2 ML VIAL IV (08:11)
[2024-09-24] MEDS: DOCUSATE SODIUM 100 MG CAPSULE 200 MG PO (08:11)
[2024-09-24] MEDS: BISACODYL 5 MG TABLET 10 MG PO (08:11)
--- NOTE | 2024-09-24 10:00 | CM.NOTE ---
Rounds made with Dr. Urena, pt will discharge to home today and f/u with Dr. Ba. Pt will have outpatient lab work prior to f/u with Dr. Ba.
[2024-09-24 11:31] VITALS: BP 102/70; PULSE 88; TEMP 36.8; O2SAT 95
--- NOTE | 2024-09-26 13:58 | PM.DS1 ---
DS: Providers Provider Date of admission: 09/17/24 03:01 Primary care physician: Blane Beavers Consults: 09/17/24 02:40 Consult to Urology Routine Consulting Provider: Paola Segura Reason for consultation: Kidney stone 09/18/24 22:10 Consult to Pharmacy Routine Consulting Provider: Reason for consultation: Antbx dose adjustement for renal failure Discharging clinician: KAYLEEN JANE DS: Diagnosis Discharge Diagnosis (1) Perinephric hematoma: (2) Complicated urinary tract infection: (3) Renal colic on right side: (4) Pain due to ureteral stent: Qualifiers: Encounter type: sequela Qualified Code(s): T83.84XS - Pain due to genitourinary prosthetic devices, implants and grafts, sequela (5) Constipation by delayed colonic transit: DS: Summary Hospital Course Hospital Course: Miss Mahan is a 28-year-old female who was admitted to the hospital evening of September 16. She was admitted for concerns for complication from prior lithotripsy with a CT scan showing multiple large stone fragments in the right renal pelvis. She was seen on urology consultation recommended starting oxybutynin, continuing with IV and p.o. hydration, she was started on antibiotics, Toradol for pain otherwise supportive care. The initial CT scan in the ER was then without contrast so we were unable to assess the full renal anatomy. Her pain did not seem to be improving despite opioids and Toradol, her kidney function remained stable. On September 21, a repeat CT scan with contrast was performed and showed evidence of a perinephric hematoma. Her hemoglobin had been stable in the low 8 range however it did drop down to 7 point 7 in the morning of September 22, due to this there is concern for continued bleeding she received 2 units PRBC. At that point in time the patient was quite frustrated with her prolonged hospitalization and concern from the family if she were to require intervention they could have done this hospital. A call was made to [facility], they declined the patient. A call was then made to [facility] in [place] for request to transfer for concerns/second opinion/possible intervention, she was accepted to [facility] if needed for IR embolization however the patient's pain continued to improve in this point forward. Her hemoglobin stabilized. Her white count continued to remain elevated at 22 and her platelets continue to trend up throughout the admission. The morning of September 24, her pain had improved significantly. She was subsequently cleared for discharge from urology standpoint with repeat labs to be done on the morning of September 26 including CBC. I did discharge her from the hospital on Augmentin, oxycodone, and Toradol. Pharmacy called me and actually refused to fill the Toradol prescription as she had been on Toradol for almost 2 weeks straight now, I did not realize that and I agreed to hold off on further Toradol dosing. At the time of writing his discharge summary, September 26, her repeat CBC did return and her platelets are over thousand. Her white count has continued to be elevated and remains at 22 despite continued antibiotics. I will order a peripheral smear through [facility]. Time Spent with Patient Time attestation: Total time spent providing and/or coordinating discharge services: Exam Narrative Exam Narrative: General: Awake and alert, no acute distress HEENT: Normocephalic, atraumatic, no scleral icterus noted Lungs: Clear to auscultation bilaterally Cardiac: Regular rate and rhythm, no murmurs appreciated GI: Soft, nontender, regular bowel sounds. Extremities: Active and passive range of motion intact throughout, no edema Neuro: Cranial nerves II through XII intact, no focal deficits noted Skin: No rashes or lesions, no signs of jaundice Constitutional Vital Signs, click to edit/add: Last Vital Signs Temp 98.2 F 09/24/24 11:31 Pulse 88 09/24/24 11:31 Resp 17 09/24/24 11:31 BP 102/70 09/24/24 11:31 Pulse Ox 95 09/24/24 11:31 O2 Del Method Room Air 09/24/24 11:31 O2 Flow Rate 1 09/22/24 04:00 Discharge Plan Discharge Disposition: Home, Self-Care Condition: Fair Discharge Medications: New hyoscyamine sulfate 0.125 mg Tablet, Sublingual 0.125 mg sublingual BID PRN (Reason: Cramping) 10 Days Qty: 20 0RF docusate sodium 100 mg Capsule 200 mg PO BID 15 Days Qty: 60 0RF oxycodone 5 mg Tablet 5 mg PO Q8H PRN (Reason: Mild Pain) 5 Days Qty: 15 0RF amoxicillin-pot clavulanate [Augmentin] 500-125 mg tablet 1 tab PO BID Qty: 10 0RF Continued lamotrigine 150 mg tablet 150 mg PO .QHS sertraline 50 mg tablet 50 mg PO .QHS Vraylar 3 mg capsule 3 mg PO .QHS mirabegron 50 mg tablet extended release 24 hr 50 mg PO Q24H ketorolac 10 mg tablet 10 mg PO Q8H PRN (Reason: pain) 5 Days Qty: 15 0RF Discontinued cephalexin 500 mg capsule 500 mg PO BID 7 Days Qty: 14 0RF Patient Comments: 09/11/24-09/17/24 Activity: resume usual activities as tolerated Diet: regular diet Print Language: [place] Patient Instructions: Acute Kidney Injury (DC), Kidney Stones (DC), Flank Pain (ED) Life Skills Specialist/Chainstitch Felled Seam Operator Instructions: Pt given lab slip for outpatient labs to be drawn for follow up Forms: Portal Instructions Follow Up Appointments: Dr Beavers (PCP) October 02 10am [phone] Dr. Connolly's office (urology) will call the patient to schedule a follow up appt. [phone] Discharge Date/Time: 09/24/24 13:19
--- NOTE | 2024-09-26 15:24 | CM.DCFOLLOWU ---
1st attempt 09/26/24, no answer
--- NOTE | 2024-09-30 14:38 | CM.DCFOLLOWU ---
2nd attempt 09/30/24, no answer
--- NOTE | 2024-10-01 15:20 | CM.DCFOLLOWU ---
3rd attempt 10/01/24, no answer
== END 2024-09-24 13:19 | disposition home or self-care (01) | DRG 863 ==
LOC: ER 02:18 → MS 03:07
PROVIDERS: Hospitalist; Internal Medicine; Admitting Provider Student in an Organized Health Care Education/Training Program; Emergency Provider Emergency Medicine; PCP Family Medicine; Visit Provider Internal Medicine
DX: T81.40XA Infection following a procedure, unspecified, initial encounter (principal); N17.9 Acute kidney failure, unspecified; F31.81 Bipolar II disorder; T83.84XA Pain due to genitourinary prosthetic devices, implants and grafts, initial encounter; S37.011A Minor contusion of right kidney, initial encounter; D62 Acute posthemorrhagic anemia; N39.0 Urinary tract infection, site not specified; F17.290 Nicotine dependence, other tobacco product, uncomplicated; Z87.442 Personal history of urinary calculi; Z82.49 Family history of ischemic heart disease and other diseases of the circulatory system; B96.1 Klebsiella pneumoniae [K. pneumoniae] as the cause of diseases classified elsewhere; Z96.0 Presence of urogenital implants; N32.89 Other specified disorders of bladder; Y83.8 Other surgical procedures as the cause of abnormal reaction of the patient, or of later complication, without mention of misadventure at the time of the procedure; K59.03 Drug induced constipation; X58.XXXA Exposure to other specified factors, initial encounter; N20.0 Calculus of kidney
CPT/HCPCS: 36415; 36430; 74176; 74177; 80048; 80053; 80074; 81001; 83605; 83735; 84703; 85007; 85014; 85018; 85025; 85027; 85610; 85730; 86850; 86900; 86901; 86923; 87040; 87086; 94761; 96365; 96375; 96376; 99285; J0131; J0696; J0743; J0780; J1171; J1335; J1650; J1885; J2405; J2550; J2765; P9016; Q9967

== ENCOUNTER 2024-09-26 12:19 | Outpatient (OUT) | payer OTHER, SELFPAY ==
--- OUTSIDE RECORDS SUMMARY | 2018-09-25 09:00 | XMS_ITS | Continuity of Care Document ---
Author Organization [employer] Address [address] [facility] [place] [address] Phone Care Team Providers Care Supervisor Coal Handling Name Role Phone Unavailable Unavailable Unavailable Procedures [...] Immunity Screen, ACIF. @ Test Performed By: [facility] Boby Casey M.D., Ph.D., Senior Executive Assistant [address] [place] [phone] [facility] #[id number] Panel Description: Mumps IgG Ab Final SPECIMEN: [...] Diagnoses Date Provider Providers Copied on Encounter [facility], [address] [facility], [place], [place], [id number], [place] tel:[phone] [facility] No Information No Information Family [...]
--- OUTSIDE RECORDS SUMMARY | 2020-09-09 09:48 | XMS_ITS | Continuity of Care Document ---
Author Organization [facility] Address [address] [place] [address] Phone Care Team Providers Care Porcelain Buildup Assistant Name Role Phone Dee Gonzalez Unavailable Unavaila [...] Diagnoses Date Provider Providers Copied on Encounter [facility], [address] [place], [place], [id number], [place] tel:[phone] [facility] No Information 1 Maykel Price. [address] [place], [place], [id number] , [place]. tel:[phone] [facility], [address] [place], [place], [address], [place] tel:[phone] [facility] No Information 0 Caio Geller. [address] [place], [place], [address] , [place]. tel: [phone] [facility], [address] [place], [place], [address], [place] tel:[phone] [facility] En[facility] for [facility] [address] [place], [place], [address] , [place]. tel: [phone] [facility], [address] [place] [address], [id number], [place] tel:[phone] [facility] Encounter for screening for respiratory tuberculosis 9 [facility] DO Gauthier. [address] [place], [place], [address] , [place]. tel: [phone] OFFICE/OUTPAT IENT VISIT, EST [facility], [address] [place], [place], [address], [place] tel:[phone] [facility] Initial Visit (chief complaint) control (chief complaint) Gynecological ExaminationOther specified contraceptive managementNeoplasm of uncertain behavior of other and unspecified female genital organs [facility] [address] [place], [address] , [place]. tel: [phone] Family History Family Member Type Diagnosis Age [...] type Covered alliance party ID Authoriza tidaniel(s) [place] [facility]FC 190 [id number] Medicaid Wrap - [facility] [place] [id number] [place] [facility] [place] 190 [id number] [place] [facility] [place] 190 [id number] Medicaid Wrap - [facility] [place] [id number] Social History Type Description Quantity Date Captured [...]
--- OUTSIDE RECORDS SUMMARY | 2024-09-26 12:25 | XMS_ITS | Encounter Summary ---
Author Organization [employer] tem Address [id number] [address] [place] [address] Care Team Providers Care Ore Bridge Operator Name Role Phone Unavailable Primary Care Provider Unavailabl e Encounter Details Date Type Department Care Team (Late st Contact Info) Description 05/20/2020 Orders Only Maternal- Medicine at [facility] [address] [place] [address] External, Scanning Provider Social History [...] more fetus (05/17/2020) Anatomical Region Laterality Modality OB-RHEOLOGIST Ultrasound Narrative 05/17/2020 See attached report us Scanning Provider External IMG US ORDERABLES Philippe richi Result - Final * Ultrasound limited 1 or more fetus (04/19/2020) Anatomical Region Laterality Modality OB-RHEOLOGIST Ultrasound Narrative 04/19/2020 See attached report us Scanning Provider External IMG US ORDERABLES Philippe richi Result - Final * Ultrasound limited 1 or more fetus (01/30/2020) Anatomical Region Laterality Modality OB-RHEOLOGIST Ultrasound Narrative 01/30/2020 See attached report us Scanning Provider External IMG US ORDERABLES Philippe richi Result - Final documented in this encounter Visit Diagnoses Not on filedocumented in this encounter
--- OUTSIDE RECORDS SUMMARY | 2024-09-26 12:25 | XMS_ITS | Encounter Summary ---
Author Organization [facility] Address [address] [place] [place] [address] Care Team Providers Care Transportation Manager Name Role Phone Penelope Walker CHOCOLATE PRODUCTION MACHINE OPERATOR-MILIEU COORDINATOR Unavailable Blane Beavers DO Primary Care Provider [phone] Penelope Walker CHOCOLATE PRODUCTION MACHINE OPERATOR-MILIEU COORDINATOR Unavailable Encounter Details Date Type Department Care Team (Late st Contact Info) Description 08/17/2023 Abstract [facility] [address] [place] [phone] Blane Beavers DO [address] [facility] [address] [place] [address] Social History Tobacco Use Types Packs/Day Years [...] often do you attend chur ch or confucianism services? Never 02/09/2023 Do you belong to any clubs o r organizations such as worship groups, unions, fraternal or athletic groups, or [...] Recorded Patient Health Questionnaire-2 Score 0 04/13/2023 [facility] of Occupat ional Health - Occupational Stress [...] have received? 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 on file Not on nidia e Not on file documented as of this encounter Plan of Treatment Upcoming Encounters Date Type Department Care Team (Late st Contact Info) Description 10/02/2024 10:00 AM EDT Office Visit [facility] [address] [place] [phone] Blane Beavers, [address] [place] [address] 10/30/2024 9:30 AM EDT [facility] [address] [facility] [address] [place] [address] Penelope Walker, CHOCOLATE PRODUCTION MACHINE OPERATOR-MILIEU COORDINATOR [address] [facility] [address] [place] [address] documented as of this encounter Visit Diagnoses Not on filedocumented in this encounter Care Teams Transportation Manager Relationship Specialty Start Date End Date Blane Beavers DO [address] [facility] [address] [place] [address] PCP - General Family Medicine 02/09/23 Penelope Walker, CHOCOLATE PRODUCTION MACHINE OPERATOR-MILIEU COORDINATOR [address] [facility] [address] [place] [address] [facility] 02/20/24 Penelope Walker, CHOCOLATE PRODUCTION MACHINE OPERATOR-MILIEU COORDINATOR [address] [facility] [address] [place] [address] Nurse Practitioner Behavioral Health 07/28/22 documented as of this encounter
--- OUTSIDE RECORDS SUMMARY | 2024-09-26 12:25 | XMS_ITS | Encounter Summary ---
Author Organization [facility] Address [address] [place] [address] Care Team Providers Care Heating And Blending Supervisor Name Role Phone Penelope Walker ARMAMENT MECHANIC-TELECOMMUNICATIONS LINE INSTALLER Unavailable Blane Beavers DO Primary Care Provider Penelope Walker ARMAMENT MECHANIC-TELECOMMUNICATIONS LINE INSTALLER Unavailable Encounter Details Date Type Department Care Team (Late st Contact Info) Description 08/17/2023 Abstract [facility] [address] [place] [phone] Blane Beavers DO [address] [facility] [address] [place] [address] Social History Tobacco Use Types Packs/Day Years [...] often do you attend chur ch or adventism services? 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 [address] [place] [address] Penelope Walker, ARMAMENT MECHANIC-TELECOMMUNICATIONS LINE INSTALLER [address] [facility] [address] [place] [address] documented as of this encounter Visit Diagnoses Not on filedocumented in this encounter Care Teams Heating And Blending Supervisor Relationship Specialty Start Date End Date Blane Beavers DO [address] [facility] [address] [place] [address] PCP - General Family Medicine 02/09/23 Penelope Walker, ARMAMENT MECHANIC-TELECOMMUNICATIONS LINE INSTALLER [address] [facility] [address] [place] [address] [facility] 02/20/24 Penelope Walker, ARMAMENT MECHANIC-TELECOMMUNICATIONS LINE INSTALLER [address] [facility] [address] [place] [address] Nurse Practitioner Behavioral Health 07/28/22 documented as of this encounter
--- OUTSIDE RECORDS SUMMARY | 2024-09-26 12:25 | XMS_ITS | Encounter Summary ---
Author Organization [facility] Address [address] [place] [address] Care Team Providers Care Events Intern Name Role Phone Penelope Walker MANAGER SYSTEM-PRODUCT SAFETY MANAGER Unavailable Blane Beavers DO Primary Care Provider [phone] Penelope Walker MANAGER SYSTEM-PRODUCT SAFETY MANAGER Unavailable Encounter Details Date Type Department Care Team (Late st Contact Info) Description 08/17/2023 Abstract [facility] [address] [place] [phone] Blane Beavers DO [address] [facility] [address] [place] [address] Social History Tobacco Use Types Packs/Day Years [...] often do you attend chur ch or orthodox services? 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 on file Not on nidia e Not on file documented as of this encounter Plan of Treatment Upcoming Encounters Date Type Department Care Team (Late st Contact Info) Description 10/02/2024 10:00 AM EDT Office Visit [facility] [address] [place] [phone] Blane Beavers, [address] [place] [address] 10/30/2024 9:30 AM EDT Office Visit [facility] [address] [facility] [address] [place] [address] Penelope Walker, MANAGER SYSTEM-PRODUCT SAFETY MANAGER [address] [facility] [address] [place] [address] documented as of this encounter Visit Diagnoses Not on filedocumented in this encounter Care Teams Events Intern Relationship Specialty Start Date End Date Blane Beavers DO [address] [facility] [address] [place] [address] PCP - General Family Medicine 02/09/23 Penelope Walker, MANAGER SYSTEM-PRODUCT SAFETY MANAGER 112 [facility] [address] [place] [address] [facility] 02/20/24 Penelope Walker, MANAGER SYSTEM-PRODUCT SAFETY MANAGER [address] [place] [facility] [address] [place] [address] Nurse Practitioner Behavioral Health 07/28/22 documented as of this encounter
--- OUTSIDE RECORDS SUMMARY | 2024-09-26 12:25 | XMS_ITS | Clinical Summary ---
Author Organization Dynamics tem Address [id number] [address] [place] [address] Care Team Providers Care [place] Coiling Machine Setter Name Role Phone Unavailable Primary Care Provider [...] Tobacco Screening 2007 Adult BMI Screening 12/18/2013 Pap Smear 01/29/2023 01/30/2020 COVID-19 Vaccine (3 2023-2 5 season) 2023 01/06/2021, 12/08/2020 Influenza Vaccine 10/20/2024 03/06/2023, , 11/25/2019, Additional history exists DTaP,Tdap and Td Vaccines (9 - Td or Tdap) 01/24/2029 01/24/2019, 10/09/2017, 10/23/2014, Additional history exists Medical Devices Not on file Procedures Procedure Name Priority Date/Time Associated Diagnosis Comments HIGH RISK HPV W/NANCY Routine 01/30/2020 from Last 3 Months or Most Recently Relevant to Health Maintenance Results * High risk HPV w/nancy (01/30/2020) Other High Risk Hpv See attached report MANUALLY TRANSCRIBED RESULTS Comment:See attached report us Not In System Ref Prov LAB BLOOD ORDERABLES Edit ed Result - Final MANUALLY TRANSCRIBED RESULTS from Last 3 Months or Most Recently Relevant to Health Maintenance Insurance [facility] MEDICAID Advance Directives * Full Code (Latest Code Status on File) Date Activated Date Inactivated Comments 09/07/2017 8:59 PM 09/07/2017 11:24 PM
--- OUTSIDE RECORDS SUMMARY | 2024-09-26 12:25 | XMS_ITS | Encounter Summary ---
Author Organization [facility] Address [address] [place] [address] Care Team Providers Care Rubber Insulator Name Role Phone Penelope Walker CREATIVE SERVICES MANAGER-COSTING ANALYST Unavailable Blane Beavers DO Primary Care Provider Penelope Walker CREATIVE SERVICES MANAGER-COSTING ANALYST Unavailable Encounter Details Date Type Department Care Team (Late st Contact Info) Description 08/17/2023 Abstract [facility] [place] [facility] [address] [facility] [address] [place] [address] Blane Beavers DO [address] [facility] [address] [place] [address] Social History Tobacco Use Types Packs/Day Years [...] any clubs o r organizations such as mandaeism groups, unions, fraternal or athletic groups, or [...] Recorded Patient Health Questionnaire-2 Score 0 04/13/2023 [facility] of Occupat ional Health - Occupational [...] Master's degree (e.g., MA, MS, Jennifer, MEd, CONFIDENTIAL SECRETARY, NILAM) 03/19/2023 Comments Unknown Sex and Gender Information Value Date Recorded Sex Assigned at Not on file Legal Sex Female 6:35 PM EDT Gender Identity Not on file Sexual Orientation Not on file Occupation Industry Job Start Date Job End Date 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 on file Not on nidia e Not on file documented as of this encounter Plan of Treatment Upcoming Encounters Date Type Department Care Team (Late st Contact Info) Description 10/02/2024 10:00 AM EDT [facility] [address] [place] [phone] Blane Beavers, [address] [place] [address] 10/30/2024 9:30 AM EDT [facility] 112 [facility] [address] [place] [address] Penelope Walker, CREATIVE SERVICES MANAGER-COSTING ANALYST 112 [facility] [address] [place] [address] documented as of this encounter Visit Diagnoses Not on filedocumented in this encounter Care Teams Rubber Insulator Relationship Specialty Start Date End Date Blane Beavers DO [address] [facility] 230 [place] [address] PCP - General Family Medicine 02/09/23 Penelope Walker, CREATIVE SERVICES MANAGER-COSTING ANALYST [address] [facility] [address] [place] [address] [facility] 02/20/24 Penelope Walker, CREATIVE SERVICES MANAGER-COSTING ANALYST 112 [facility] [address] [place] [address] Nurse Practitioner Behavioral Health 07/28/22 documented as of this encounter
--- OUTSIDE RECORDS SUMMARY | 2024-09-26 12:25 | XMS_ITS | Encounter Summary ---
Author Organization [facility] Address [address] [facility] [place] [address] Care Team Providers Care Tip Inserter Name Role Phone Penelope Walker RETAIL LOSS PREVENTION INVESTIGATOR-PRE WAVE ASSEMBLER Unavailable Blane Beavers DO Primary Care Provider Penelope Walker RETAIL LOSS PREVENTION INVESTIGATOR-PRE WAVE ASSEMBLER Unavailable Encounter Details Date Type Department Care Team (Late st Contact Info) Description 08/17/2023 Abstract [facility] [place] [facility] [address] [facility] [address] [place] [address] Blane Beavers DO [address] [facility] [address] [place] [address] Social History Tobacco Use Types Packs/Day Years [...] often do you attend chur ch or faith services? 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 [address] [place] [address] Penelope Walker, RETAIL LOSS PREVENTION INVESTIGATOR-PRE WAVE ASSEMBLER [address] [facility] [address] [place] [address] documented as of this encounter Visit Diagnoses Not on filedocumented in this encounter Care Teams Tip Inserter Relationship Specialty Start Date End Date Blane Beavers DO [address] [facility] 230 [place] [address] PCP - General Family Medicine 02/09/23 Penelope Walker, RETAIL LOSS PREVENTION INVESTIGATOR-PRE WAVE ASSEMBLER 112 [facility] [address] [place] [address] [facility] 02/20/24 Penelope Walker, RETAIL LOSS PREVENTION INVESTIGATOR-PRE WAVE ASSEMBLER [address] [facility] [address] [place] [address] Nurse Practitioner Behavioral Health 07/28/22 documented as of this encounter
--- OUTSIDE RECORDS SUMMARY | 2024-09-26 12:25 | XMS_ITS | Encounter Summary ---
Author Organization [facility] Address [address] [place] [address] Care Team Providers Care Theater Manager Name Role Phone Penelope Walker SKIP HOIST ENGINEER-INSPECTOR SET UP AND LAY OUT Unavailable Blane Beavers DO Primary Care Provider Penelope Walker SKIP HOIST ENGINEER-INSPECTOR SET UP AND LAY OUT Unavailable Encounter Details Date Type Department Care Team (Late st Contact Info) Description 08/17/2023 Abstract [facility] [address] [address] [place] [phone] Blane Beavers DO [address] [facility] [address] [place] [address] Social History Tobacco Use Types Packs/Day Years [...] often do you attend chur ch or pentecostalism services? 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 Not on nidia e Not on file documented as of this encounter Plan of Treatment Upcoming Encounters Date Type Department Care Team (Late st Contact Info) Description 10/02/2024 10:00 AM EDT Office Visit [facility] [address] [place] [phone] Blane Beavers, [address] [place] [address] 10/30/2024 9:30 AM EDT Office [facility] 112 [facility] [address] [place] [address] Penelope Walker, SKIP HOIST ENGINEER-INSPECTOR SET UP AND LAY OUT 112 [facility] [address] [place] [address] documented as of this encounter Visit Diagnoses Not on filedocumented in this encounter Care Teams Theater Manager Relationship Specialty Start Date End Date Blane Beavers DO [address] [facility] 230 [place] [address] PCP - General Family Medicine 02/09/23 Penelope Walker, SKIP HOIST ENGINEER-INSPECTOR SET UP AND LAY OUT 112 [facility] [address] [place] [address] [facility] 02/20/24 Penelope Walker, SKIP HOIST ENGINEER-INSPECTOR SET UP AND LAY OUT 112 [facility] [address] [place] [address] Nurse Practitioner Behavioral Health 07/28/22 documented as of this encounter
--- OUTSIDE RECORDS SUMMARY | 2024-09-26 12:25 | XMS_ITS | Encounter Summary ---
Author Organization [facility] Address [address] [facility] [place] [address] Care Team Providers Care Dowel Inspector Name Role Phone Penelope Walker MANAGING SUPERVISOR-FRAME STYLIST Unavailable Blane Beavers DO Primary Care Provider [phone] Encounter Details Date Type Department Care Team (Late st Contact Info) Description 09/17/2024 Abstract [facility] [address] [facility] [address] [place] [phone] Blane Beavers DO [address] [place] [address] Social History Tobacco Use Types [...] How often do you attend chur or episcopalian services? Never 02/09/2023 Do you belong to [...] Patient Health Questionnaire-2 Score 1 12/17/2023 [facility] of Occupat ional Health - [...] degree (e.g., MA, MS, Jennifer, MEd, HAND PLUG SHAPER, NILAM) 03/19/2023 Comments Unknown Sex and Gender [...] Description 10/02/2024 10:00 AM EDT Office Visit [facility] [address] [place] [address] Blane Beavers DO [address] [place] [address] 10/30/2024 9:30 AM EDT Office [facility] [address] [place] [phone] Penelope Walker MANAGING SUPERVISOR-FRAME STYLIST 112 [facility] 160 [place] [address] documented as of this encounter Visit Diagnoses Not on filedocumented in this encounter Care Teams Dowel Inspector Relationship Specialty Start Date End Date Blane Beavers DO [address] [facility] 230 [place] [address] PCP - General Family Medicine 02/09/23 Penelope Walker, MANAGING SUPERVISOR-FRAME STYLIST 112 [facility] 160 [place] [address] Nurse Practitioner Behavioral Health 07/28/22 documented as of this encounter
--- OUTSIDE RECORDS SUMMARY | 2024-09-26 12:25 | XMS_ITS | Encounter Summary ---
Author Organization [facility] Address [address] [facility] [place] [address] Care Team Providers Care Automobile Or Truck Rental Dispatcher Name Role Phone Penelope Walker SLUBBER MACHINE OPERATOR-INTERACTIVE DIGITAL MEDIA SPECIALIST Unavailable Blane Beavers DO Primary Care Provider Penelope Walker SLUBBER MACHINE OPERATOR-INTERACTIVE DIGITAL MEDIA SPECIALIST Unavailable Encounter Details Date Type Department Care Team (Late st Contact Info) Description 08/17/2023 Abstract [facility] [address] [facility] [address] [place] [phone] Blane Beavers DO [address] [facility] [address] [place] [address] Social History Tobacco Use Types Packs/Day Years [...] often do you attend chur ch or methodist services? 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 [address] [place] [address] documented as of this encounter Visit Diagnoses Not on filedocumented in this encounter Care Teams Automobile Or Truck Rental Dispatcher Relationship Specialty Start Date End Date Blane Beavers DO [address] [facility] 230 [place] [address] PCP - General Family Medicine 02/09/23 Penelope Walker, SLUBBER MACHINE OPERATOR-INTERACTIVE DIGITAL MEDIA SPECIALIST 112 [facility] [address] [place] [address] [facility] 02/20/24 Penelope Walker, SLUBBER MACHINE OPERATOR-INTERACTIVE DIGITAL MEDIA SPECIALIST [address] [facility] [address] [place] [address] Nurse Practitioner Behavioral Health 07/28/22 documented as of this encounter
--- OUTSIDE RECORDS SUMMARY | 2024-09-26 12:25 | XMS_ITS | Encounter Summary ---
Author Organization [facility] Address [address] [place] [address] Care Team Providers Care Molder Name Role Phone Penelope Walker RECREATION ENGINEER-CLIENT CARE COORDINATOR Unavailable Blane Beavers DO Primary Care Provider [phone] Encounter Details Date Type Department Care Team (Late st Contact Info) Description 09/17/2024 Abstract [facility] [address] [facility] [address] [place] [phone] Blane Beavers DO [address] [facility] [address] [place] [address] Social History Tobacco Use Types [...] How often do you attend chur or jewish services? Never 02/09/2023 Do you belong to any clubs o r organizations such as congregational groups, unions, fraternal or athletic groups, or [...] Recorded Patient Health Questionnaire-2 Score 1 12/17/2023 [facility] of Occupat ional Health [...] Master's degree (e.g., MA, MS, Jennifer, MEd, WAFFLE MACHINE OPERATOR, NILAM) 03/19/2023 Comments Unknown Sex [...] [address] [place] [address] Blane Beavers DO [address] [place] [address] 10/30/2024 9:30 AM EDT Office [facility] [address] [place] [phone] Penelope Walker RECREATION ENGINEER-CLIENT CARE COORDINATOR [address] [facility] 160 [place] [address] documented as of this encounter Visit Diagnoses Not on filedocumented in this encounter Care Teams Molder Relationship Specialty Start Date End Date Blane Beavers DO [address] [facility] 230 [place] [address] PCP - General Family Medicine 02/09/23 Penelope Walker, RECREATION ENGINEER-CLIENT CARE COORDINATOR 112 [facility] 160 [place] [address] Nurse Practitioner Behavioral Health 07/28/22 documented as of this encounter
--- OUTSIDE RECORDS SUMMARY | 2024-09-26 12:25 | XMS_ITS | Encounter Summary ---
Author Organization [facility] Address [address] [facility] [place] [address] Care Team Providers Care Distresser Name Role Phone Penelope Walker SCRAP CRANE OPERATOR-BICYCLE RACER Unavailable Blane Beavers DO Primary Care Provider [phone] Penelope Walker SCRAP CRANE OPERATOR-BICYCLE RACER Unavailable Reason for Visit * Reason Comments Med Refill Encounter Details Date Type Department Care Team (Late st Contact Info) Description 07/15/2023 Refill [facility] [address] [facility] [address] [place] [phone] Penelope Walker, SCRAP CRANE OPERATOR-BICYCLE RACER [address] [place] [address] Bipolar 2 disorder (HCC) Social History Tobacco [...] How often do you attend chur or amish services? 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 Not on nidia e Not on file documented as of this encounter Plan of Treatment Upcoming Encounters Date Type Department Care Team (Late st Contact Info) Description 10/02/2024 10:00 AM EDT [facility] Visit [facility] [address] [place] [address] Blane Beavers, DO [address] [place], [place] [address] 10/30/2024 9:30 AM EDT Office Visit [facility] [place] [facility] 112 [facility] [address] [place] [address] Penelope Walker, SCRAP CRANE OPERATOR-BICYCLE RACER [address] [facility] [address] [place] [address] documented as of this encounter Visit Diagnoses Diagnosis Bipolar 2 disorder (HCC) Other bipolar disorders documented in this encounter Care Teams Distresser Relationship Specialty Start Date End Date Blane Beavers DO [address] [facility] 230 [place] [address] PCP - General Family Medicine 02/09/23 Penelope Walker, SCRAP CRANE OPERATOR-BICYCLE RACER 112 [facility] [address] [place] [address] PCP - [place] [employer] 02/20/24 Penelope Walker, SCRAP CRANE OPERATOR-BICYCLE RACER [address] [facility] 160 [place] [address] Nurse Practitioner Behavioral Health 07/28/22 documented as of this encounter
--- OUTSIDE RECORDS SUMMARY | 2024-09-26 12:25 | XMS_ITS | Encounter Summary ---
Author Organization [facility] Address [address] [place] [address] Care Team Providers Care Mold Carrier Name Role Phone Penelope Walker HEALTH CARE SANITARY TECHNICIAN-PARTY DIRECTOR Unavailable Blane Beavers DO Primary Care Provider [phone] Encounter Details Date Type Department Care Team (Late st Contact Info) Description 09/23/2024 Abstract [facility] [address] [facility] [address] [place] [address] Blane Beavers DO [address] [facility] [address] [place] [address] Social History Tobacco Use Types Packs/Day Years Used Date Smoking Tobacco: Never Smokeless Tobacco: Never Alcohol Use Standard Drinks/Week Comments Not Currently 0 (1 standard drink = 0.6 oz pure alcohol) 80-200 mg of caffiene, energy drinks B1300 Health Literacy Answer Date Recor ded How often do you need to hav e someone help you when you read instructions, pamphlets, or other written material from your doctor or pharmacy? Never 09/25/2024 Humiliation, Afraid, Rape, and Kick questionnair e Answer Date Recorded Within the last year, have y ou been afraid of your partner or ex-partner? No 09/25/2024 Within the last year, have y ou been humiliated or emotionally abused in other ways by your partner or ex-partner? No Within the last year, have y ou been kicked, hit, slapped, or otherwise physically hurt by your partner or ex-partner? No 09/25/2024 Within the last year, have y ou been raped or forced to have any kind of sexual activity by your partner or ex-partner? No 09/25/2024 Social Connection and Isolat ion Panel [NHANES] Answer Date Recorded In a typical week, how many times do you talk on the phone with family, friends, or neighbors? More than three times a week 09/25/2024 How often do you get togethe r with friends or relatives? Three times a week 09/25/2024 How often do you attend chur ch or sabianism services? Never 09/25/2024 Do you belong to any clubs o r organizations such as moravian groups, unions, fraternal or athletic groups, or school groups? No 09/25/2024 How often do you attend meet ings of the clubs or organizations you belong to? Never 09/25/2024 Are you , , di vorced, , never , or living with a partner? 09/25/2024 AUDIT-C Answer Date Recorded Q1: How often do you have a drink containing alcohol? Never 09/25/2024 Q2: How many drinks containi ng alcohol do you have on a typical day when you are drinking? Patient does not drink Q3: How often do you have si x or more drinks on one occasion? Never 09/25/2024 Overall Financial Resource Strain (CARDIA) Answe r Date Recorded How hard is it for you to pa y for the very basics like food, housing, medical care, and heating? Not very hard 09/25/2024 PHQ-2 Answer Date Recorded Patient Health Questionnaire-2 Score 1 12/17/2023 [facility] of Occupat ional Health - Occupational Stress Questionnaire Answer Date Recorded Do you feel stress - tense, restless, nervous, or anxious, or unable to sleep at night because your mind is troubled all the time - these days? Not at all 09/25/2024 Exercise Vital Sign Answer Date Recorde d On average, how many days pe r week do you engage in moderate to strenuous exercise (like a brisk walk)? 0 days 09/25/2024 On average, how many minutes do you engage in exercise at this level? 10 min 09/25/2024 Hunger Vital Sign Answer Date Recorded Within the past 12 months, y ou worried that your food would run out before you got the money to buy more. Never true 09/26/19 25 Within the past 12 months, t he food you bought just didn't last and you didn't have money to get more. Never true 09/25/2024 PRAPARE - Transportation Answer Date Re corded In the past 12 months, has l ack of transportation kept you from medical appointments or from getting medications? No 08/2024 In the past 12 months, has l ack of transportation kept you from meetings, work, or from getting things needed for daily living? No 09/25/2024 Housing Stability Vital Sign Answer Bhavin e [...] place to sleep or slept in a mcfp (including now)? No 02/09/2023 Housing Stability Vital Sign Answer Bhavin e Recorded In the last 12 months, was t here a time when you were not able to pay the mortgage or rent on time? No 09/25/2024 In the past 12 months, how m any times have you moved where you were living? 1 09/25/2024 At any time in the past 12 m [facility], were you homeless or living in a mcfp (including now)? No 09/25/2024 Education Answer Date Recorded What is the highest level of school you have completed or the highest degree you have received? Master's degree (e.g., MA, MS, Jennifer, MEd, OPTICAL FABRICATOR, NILAM) 03/19/2023 Comments Unknown Sex and Gender Information Value Date Recorded Sex Assigned at Not on file Legal Sex Female 6:35 PM EDT Gender Identity Not on file Sexual Orientation Not on file Occupation Industry Job Start Date Job End Date Not on file Not on file Not on file Not on file documented as of this encounter Functional Status * Audit-C Score Answer Date of Assessment Author 0 09/25/2024 8:39 AM EDT Mychart, Generic * Q1: How often do you have a drink containing alcohol? Answer Date of Assessment Author Never 09/25/2024 8:39 AM EDT Mychart, Generic * Q2: How many drinks containing alcohol do you have on a typical day when you are drinking? Answer Date of Assessment Author Patient does not drink 09/25/2024 8:39 AM EDT My chart, Generic * Q3: How often do you have six or more drinks on one occasion? Answer Date of Assessment Author Never 09/25/2024 8:39 AM EDT Mychart, Generic documented as of this encounter Plan of Treatment Upcoming Encounters Date Type Department Care Team (Late st Contact Info) Description 10/02/2024 10:00 AM EDT Office Visit [facility] [place] [facility] [address] [place] [address] Blane Beavers DO [address] [place] [address] 10/30/2024 9:30 AM EDT Office Visit [facility] [place] [facility] [address] [place] [address] Penelope Walker, HEALTH CARE SANITARY TECHNICIAN-PARTY DIRECTOR [address] [place] [address] documented as of this encounter Visit Diagnoses Not on filedocumented in this encounter Care Teams Mold Carrier Relationship Specialty Start Date End Date Blane Beavers DO [address] [place] [address] PCP - General Family Medicine 02/09/23 Penelope Walker, HEALTH CARE SANITARY TECHNICIAN-PARTY DIRECTOR [address] [place] [address] Nurse Practitioner Behavioral Health 07/28/22 documented as of this encounter
--- OUTSIDE RECORDS SUMMARY | 2024-09-26 12:25 | XMS_ITS | Encounter Summary ---
Author Organization [facility] Address [address] [facility] [place] [address] Care Team Providers Care Coding Validator Name Role Phone Penelope Walker EXTRUSION FORMER-MARINE EXTENSION AGENT Unavailable Blane Beaevrs DO Primary Care Provider [phone] Encounter Details Date Type Department Care Team (Late st Contact Info) Description 09/17/2024 Abstract [facility] [place] [facility] [address] [facility] [address] [place] [address] Blane Beavers DO [address] [facility] [address] [place] [address] Social History Tobacco Use Types [...] How often do you attend chur or faith services? Never 02/09/2023 Do you belong to any clubs o r organizations such as sikh groups, unions, fraternal or athletic groups, or [...] Recorded Patient Health Questionnaire-2 Score 1 12/17/2023 [facility] of Occupat ional Health - Occupational [...] Master's degree (e.g., MA, MS, Jennifer, MEd, STARBUCKS CLERK, NILAM) 03/19/2023 Comments Unknown Sex and Gender [...] [address] [place] [address] Blane Beavers DO [address] [place] [address] 10/30/2024 9:30 AM EDT [facility] [address] [place] [address] Penelope Walker EXTRUSION FORMER-MARINE EXTENSION AGENT 112 [facility] 160 [place] [address] documented as of this encounter Visit Diagnoses Not on filedocumented in this encounter Care Teams Coding Validator Relationship Specialty Start Date End Date Blane Beavers DO [address] [facility] 230 [place] [address] PCP - General Family Medicine 02/09/23 Penelope Walker, EXTRUSION FORMER-MARINE EXTENSION AGENT 112 [facility] 160 [place] [address] Nurse Practitioner Behavioral Health 07/28/22 documented as of this encounter
--- OUTSIDE RECORDS SUMMARY | 2024-09-26 12:25 | XMS_ITS | Encounter Summary ---
Author Organization [facility] Address [address] [facility] [place] [place] [address] Care Team Providers Care Valet Cashier Name Role Phone Penelope Walker CHINCHILLA MACHINE OPERATOR-LOCOMOTIVE INSPECTOR Unavailable Blane Beavers DO Primary Care Provider Penelope Walker CHINCHILLA MACHINE OPERATOR-LOCOMOTIVE INSPECTOR Unavailable Encounter Details Date Type Department Care Team (Late st Contact Info) Description 08/17/2023 Abstract [facility] [place] [facility] [address] [facility] [address] [place] [address] Blane Beavers DO [address] [facility] [address] [place] [address] Social History Tobacco Use Types Packs/Day Years [...] often do you attend chur ch or rastafarian services? 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 160 [place] [address] Penelope Walker, CHINCHILLA MACHINE OPERATOR-LOCOMOTIVE INSPECTOR [address] [facility] 160 [place] [address] documented as of this encounter Visit Diagnoses Not on filedocumented in this encounter Care Teams Valet Cashier Relationship Specialty Start Date End Date Blane Beavers DO [address] [facility] 230 [place] [address] PCP - General Family Medicine 02/09/23 Penelope Walker, CHINCHILLA MACHINE OPERATOR-LOCOMOTIVE INSPECTOR 112 [facility] 160 [place] [address] [facility] 02/20/24 Penelope Walker, CHINCHILLA MACHINE OPERATOR-LOCOMOTIVE INSPECTOR [address] [facility] [address] [place] [address] Nurse Practitioner Behavioral Health 07/28/22 documented as of this encounter
--- OUTSIDE RECORDS SUMMARY | 2024-09-26 12:25 | XMS_ITS | Encounter Summary ---
Author Organization [facility] Address [address] [facility] [place] [address] Care Team Providers Care Commercial Credit Analyst Name Role Phone Penelope Walker WHOLESALE AND RETAIL MERCHANT-CAN INSPECTOR Unavailable Blane Beavers DO Primary Care Provider [phone] Encounter Details Date Type Department Care Team (Late st Contact Info) Description 09/17/2024 Abstract [facility] [place] [facility] [address] [facility] [address] [place] [phone] Blane Beavers DO [address] [facility] [address] [place] [address] Social History Tobacco Use Types [...] How often do you attend chur or buddhist services? Never 02/09/2023 Do you belong to [...] Recorded Patient Health Questionnaire-2 Score 1 12/17/2023 [facility] of Occupat ional Health [...] Master's degree (e.g., MA, MS, Jennifer, MEd, PET CARE ASSISTANT, NILAM) 03/19/2023 Comments Unknown Sex and Gender [...] [address] [place] [address] Blane Beavers DO [address] [place] [address] 10/30/2024 9:30 AM EDT Office [facility] [address] [place] [address] Penelope Walker WHOLESALE AND RETAIL MERCHANT-CAN INSPECTOR 112 [facility] 160 [place] [address] documented as of this encounter Visit Diagnoses Not on filedocumented in this encounter Care Teams Commercial Credit Analyst Relationship Specialty Start Date End Date Blane Beavers DO [address] [facility] 230 [place] [address] PCP - General Family Medicine 02/09/23 Penelope Walker, WHOLESALE AND RETAIL MERCHANT-CAN INSPECTOR 112 [facility] 160 [place] [address] Nurse Practitioner Behavioral Health 07/28/22 documented as of this encounter
--- OUTSIDE RECORDS SUMMARY | 2024-09-26 12:25 | XMS_ITS | Encounter Summary ---
Author Organization [facility] Address [address] [place] [address] Care Team Providers Care New Car Driver Name Role Phone ConsueloAlexadnreblaine Penelope Collins POLICE SUPERINTENDENT-WAREHOUSE ORDER PULLER Unavailable Blane Beavers DO Primary Care Provider + [phone] Encounter Details Date Type Department Care Team (Late st Contact Info) Description 09/26/2024 Patient Outreach [facility] [address] [place] [phone] Beth Jha, GEOFF [address] [place] [address] Social History Tobacco Use Types Packs/Day Years [...] 09/25/2024 How often do you attend chur or religion services? Never 09/25/2024 Do you belong to [...] Recorded Patient Health Questionnaire-2 Score 1 12/17/2023 [facility] of Occupat ional Health - Occupational Stress [...] in a correction (including now)? No 02/09/2023 Housing Stability Vital [...] time in the past 12 m [facility], were you homeless or living in a correction (including now)? No 09/25/2024 Education Answer Date Recorded What is the highest level of school you have completed or the highest degree you have received? Master's degree (e.g., MA, MS, Jennifer, MEd, LUMBER CHECKER, NILAM) 03/19/2023 Comments Unknown Sex and Gender Information Value Date Recorded Sex Assigned at Not on file Legal Sex Female 6:35 PM EDT Gender Identity Not on file Sexual Orientation Not on file Occupation Industry Job Start Date Job End Date Not on file Not on file Not on file Not on file documented as of this encounter Progress Notes * Beth Jha RN - 09/26/2024 10:56 AM EDT Images from the original note were not included. Flowsheet Row Patient Outreach from 09/26/2024 in [facility] with Beth Jha RN Hospital Information ED, Hospital or Intermediate Facility Discharge? Hospital Patient has been contacted within two business days of discharge Yes Diagnosis Perinephric hematoma, complicated UTI, Renal colic right side, Pain due to uretral stent Discharge Date 09/24/24 Discharged To: Home Setting Discharge Hospital [facility] Engagement Admission Date 09/17/24 Medications Discharge medications reviewed and reconciled from hospital? Yes Is the patient having any side effects they believe may be caused by any medication additions or changes? No Does the patient have all medications ordered at discharge? Yes Nursing Interventions Nurse provided patient education Prescription Comments New: oxycodone, ketoralac, augmentin, scopalomine patch, hycosamine Appointments Does the patient have a primary care provider? Yes [follow up with Dr Beavers 10/02 at 10am] Nursing Interventions Verified appointment date/time/provider Does the patient have any upcoming specialty appointments? Yes [follow up with Dr Ba 10/01 at 9:30am] Nursing Interventions Advised patient to keep appointment Self Management Does patient have home health? no Patient Teaching Does the patient have access to their discharge instructions? Yes Nursing Interventions Reviewed instructions with patient What is the patient's perception of their health status since discharge? Same [pt states she reallydoes not feel better. Continues with pain and nausea/vomitting although the patch is helping. Pain meds help with pain but she states she only has so many. Pt hoping to have stent removed next week after visit with Dr Ba.] Wrap Up Wrap Up Additional Comments pt had lithotripsy 09/11 and continued to have pain and nausea/vomitting. Pt was evaluated in ER at [facility] and admitted. CT results showing Perinephric hematoma. Pt had elevated WBC count and her HGB was low. Pt did receive 2 units of RBC in hospital. pt rec'd pain/nausea/antibiotics via IV while in the hospital. Pt DC home with oral pain, nausea, antibiotic medications. She has follow up with Dr Ba 10/[address] Beavers 10/02. Pt reports she is feeling okay. taking medications ot help with pain/nausea. Pt was on her way to have labs drawn. Pt declines 30 day monitor and Declines CCM at this time. Advise pt to call office with needs/concerns. documented in this encounter Plan of Treatment Upcoming Encounters Date Type Department Care Team (Late st Contact Info) Description 10/02/2024 10:00 AM EDT [facility] Visit [facility] [address] [place] [address] Blane Beavers DO [address] [place] [address] 10/30/2024 9:30 AM EDT Office [facility] 112 [facility] 160 [place] [address] Penelope Walker, POLICE SUPERINTENDENT-WAREHOUSE ORDER PULLER 112 [facility] 160 [place] [address] documented as of this encounter Visit Diagnoses Diagnosis Sepsis, due to unspecified organism, unspecified whether acute organ dysfunction present (HCC)- Primary Kidney stones Calculus of kidney documented in this encounter Care Teams New Car Driver Relationship Specialty Start Date End Date Blane Beavers DO [address] [place] [address] PCP - General Family Medicine 02/09/23 Penelope Walker, POLICE SUPERINTENDENT-WAREHOUSE ORDER PULLER 112 [facility] 160 [place] [address] Nurse Practitioner Behavioral Health 07/28/22 documented as of this encounter
--- OUTSIDE RECORDS SUMMARY | 2024-09-26 12:25 | XMS_ITS | Encounter Summary ---
Author Organization [facility] Address [address] [facility] [place] [address] Care Team Providers Care Mission Coordinator Name Role Phone Penelope Walker BILLING ASSOCIATE-WELL FLOW OPERATOR Unavailable Blane Beavers DO Primary Care Provider [phone] Encounter Details Date Type Department Care Team (Late st Contact Info) Description 09/09/2024 Abstract [facility] [place] [facility] [address] [email or web address] [address] [place] [address] Blane Beavers DO [address] [facility] [address] [place] [address] Social History Tobacco Use [...] How often do you attend chur or congregational services? Never 02/09/2023 Do you belong to any clubs o r organizations such as religious groups, unions, fraternal or athletic groups, or [...] Recorded Patient Health Questionnaire-2 Score 1 12/17/2023 [facility] of Occupat ional [...] place to sleep or slept in a penitentiary (including now)? No 02/09/2023 Education Answer Date Recorded What is the highest level of school you have completed or the highest degree you have received? Master's degree (e.g., MA, MS, Jennifer, MEd, MANAGER CANCER, NILAM) 03/19/2023 Comments Unknown Sex and Gender [...] [address] [place] [address] Blane Beavers DO [address] [place] [address] 10/30/2024 9:30 AM EDT Office [facility] [address] [place] [address] Penelope Walker BILLING ASSOCIATE-WELL FLOW OPERATOR 112 [facility] 160 [place] [address] documented as of this encounter Visit Diagnoses Not on filedocumented in this encounter Care Teams Mission Coordinator Relationship Specialty Start Date End Date Blane Beavers DO [address] [facility] 230 [place] [address] PCP - General Family Medicine 02/09/23 Penelope Walker, BILLING ASSOCIATE-WELL FLOW OPERATOR 112 [facility] 160 [place] [address] Nurse Practitioner Behavioral Health 07/28/22 documented as of this encounter
--- OUTSIDE RECORDS SUMMARY | 2024-09-26 12:25 | XMS_ITS | Clinical Summary ---
Author Organization [facility] Address [address] [place] [address] Care Team Providers Care Box Printer Name Role Phone ConsueloAlexandreblaine Penelope Collins APRN-CUSTOMS AGENT Unavailable Blane Beavers DO Primary Care Provider [phone] Allergies Active Allergy Reactions Criticality Noted Date Comments Etonogestrel-Ethinyl Estradiol Other 07/01 Severe depression Medications SEMAGLUTIDE PO Take by mouth A ctive sertraline (Zoloft) 50 MG tabletIndicati ons:Bipolar 2 disorder (HCC) Take 1 tablet (50 mg) by mouth Daily 90 tablet 5 Active lamoTRIgine (LaMICtal) 150 MG tabletIndicati ons:Bipolar 2 disorder (HCC) Take 1 tablet (150 mg) by mouth Daily 90 tablet 5 Active Cariprazine HCl (Vraylar) 3 MG capsuleIndicat ions:Bipolar 2 disorder (HCC) Take 1 capsule by mouth Daily 90 capsule 5 025 Active amoxicillin-cl avulanate (Augmentin) 500-125 MG tablet Take 500 mg by mouth in the morning and 500 mg before bedtime. 5 025 Active docusate sodium (Colace) 100 MG capsule Take 100 mg by mouth 2 (two) times a day as needed for constipation 5 Active ketorolac (Toradol) 10 MG tablet Take 10 mg by mouth every 4 (four) hours if needed for moderate pain or mild pain 5 Active oxyCODONE (Roxicodone) 5 MG immediate release tablet Take 5 mg by mouth every 6 (six) hours if needed for severe pain or moderate pain 5 Active scopolamine (Transderm-Sco p) 1 mg/72 hr patch [address] 1 patch on the skin every 3rd (third) day 5 Active hyoscyamine (Levsin) 0.125 MG SL tablet Take 0.125 mg by mouth every 6 (six) hours if needed for cramping 5 Active Cariprazine HCl (Vraylar) 3 MG capsuleIndicat ions:Bipolar 2 disorder (HCC) Take 1 capsule by mouth Daily 90 capsule 5 025 Discontin ued(Reord er) Active Problems Problem Noted Date Diagnosed Date Chronic cystitis 09/26/2024 Dysuria 09/26/2024 Kidney stones 09/26/2024 Nausea and vomiting 09/26/2024 Overview (09/26/2024): Outside Source Comment: Problem List clean-up per request of Phys. EHR Cmte Abnormal cytological finding s in specimens from other organs, systems and tissues 02/08/2023 Cannabis abuse 02/08/2023 Cervical high risk HPV (human papillomavirus) te st positive 02/08/2023 Depression 02/08/2023 Disorder of female genital organ 02/08/2023 Menstrual disorder 02/08/2023 Bipolar 2 disorder 07/01/2022 Anxiety 07/01/2022 Encounters Date Type Department Care Team Description 09/26/2024 Patient Outreach [facility] [address] [place] [address] Beth Jha RN 09/25/2024 Travel 09/23/2024 [facility] [address] [place] [address] [place] [address] Blane Beavers DO 09/23/2024 Abstract [facility] [address] [place] [address] [place] [address] Powell, Blane L, DO 09/22/2024 Abstract [facility] [address] [place] [address] [place] [address] Powell, Blane L, DO 09/22/2024 Abstract [facility] [address] [place] [address] [place] [address] Powell, Blane L, DO 09/22/2024 Abstract [facility] [facility] [address] [place] [address] [place] [address] Powell, Blane L, DO 09/22/2024 Abstract [facility] [facility] [address] [place] [address] [place] [address] Powell, Blane L, DO 09/19/2024 Abstract [facility] [facility] [address] [place] [address] [place] [address] Powell, Blane L, DO 09/19/2024 Abstract [facility] [facility] [address] [place] [address] [place] [address] Powell, Blane L, DO 09/18/2024 Abstract [facility] [address] [place] [address] [place] [address] Powell, Blane L, DO 09/18/2024 Abstract [facility] [place] [facility] [address] [place] [address] [place] [phone] Powell, Blane L, DO 09/17/2024 Abstract [facility] [address] [place] [address] [place] [address] Powell, Blane L, DO 09/17/2024 Abstract [facility] [address] [place] [address] [place] [address] Powell, Blane L, DO 09/17/2024 Abstract [facility] [facility] [address] [place] [address] [place] [address] Powell, Blane L, DO 09/17/2024 Abstract [facility] [address] [place] [address] Blane Beavers, DO 09/17/2024 Abstract [facility] [address] [place] [address] Blane Beavers, DO 09/11/2024 Refill [facility] [place] [facility] [address] [place] [address] [place] [address] Penelope Walker, BOOM OPERATOR-CUSTOMS AGENT Bipolar 2 disorder (HCC) 09/09/2024 Abstract [facility] [address] [place] [address] Blane Beavers, DO 09/09/2024 Abstract [facility] [address] [place] [address] Blane Beavers, DO 09/09/2024 Abstract [facility] [address] [place] [address] Blane Beavers, DO from Last 3 Months Immunizations Immunization Administration Dates Next Due DTaP, Unspecified 04/25/2001, 8,07/01/1996,1996,02/29/1996 Hep B, Adolescent or Pediatric 07/01/1996,1996,1995 IPV 04/25/2001, 8,05/01/1996,1996 Influenza, Unspecified 12/22/2022,11/25/2019,07/2018 Influenza, injectable, MDCK, preservative free, quadrivalent 01/24/2019 Influenza, injectable, quadrivalent 03/06/2023 Influenza, injectable, quadr ivalent, preservative free 12/22/2022,11/25/2019 MMR 03/06/2019,08/16/2001,04/06/1997 PPD Test 10/24/2022, 0,05/02/2019,2019 Polio, Unspecified 04/25/2001, 8,05/01/1996,1996 Tdap 01/24/2019,10/09/2017,10/23/2014 Varicella 07/27/2000 Family History Medical [...] week 09/25/2024 How often do you attend [facility] or islam services? Never 09/25/2024 Do you belong to any clubs o r organizations such as mosque groups, unions, fraternal or athletic groups, or [...] Recorded Patient Health Questionnaire-2 Score 1 12/17/2023 [facility] of Occupat ional [facility] - Occupational Stress Questionnaire Answer [...] a skilled nursing (including now)? No 02/09/2023 Housing Stability Vital Sign Answer Bhavin e Recorded In the last 12 months, was t here a time when you were not able to pay the mortgage or rent on time? No 09/25/2024 In the past 12 months, how m any times have you moved where you were living? 1 09/25/2024 At any time in the past 12 m [facility], were you homeless or living in a skilled nursing (including now)? No 09/25/2024 Education Answer Date Recorded What is the highest level of school you have completed or the highest degree you have received? Master's degree (e.g., MA, MS, Jennifer, MEd, VACUUM TRUCK DRIVER, NILAM) 03/19/2023 Comments Unknown Sex and Gender [...] Family Practice [address] [place] [address] Blane Beavers DO [address] [facility] [address] [place] [address] 10/30/2024 9:30 AM EDT Office Visit [facility] [facility] 112 [facility] 160 [place] [address] Penelope Walker, BOOM OPERATOR-CUSTOMS AGENT 112 [facility] 160 [place] [address] Health Maintenance Due Date Last Done Comments Influenza Vaccine (#1) 2024 , 12/22/2022, 12/22/2022, Additional history exists Insurance [employer] Care Teams Box Printer Relationship Specialty Start Date End Date Blane Beavers DO [address] [facility] [place] [address] PCP - General Family Medicine 02/09/23 Penelope Walker, BOOM OPERATOR-CUSTOMS AGENT 112 [facility] [address] [place] [address] Nurse Practitioner Behavioral Health 07/28/22
--- OUTSIDE RECORDS SUMMARY | 2024-09-26 12:25 | XMS_ITS | Encounter Summary ---
Author Organization [facility] Address [address] [facility] [place] [address] Care Team Providers Care Kraft Digester Operator Name Role Phone Penelope Walker NEUROLOGY TECHNICIAN-PEST CONTROL PILOT Unavailable Blane Beavers DO Primary Care Provider [phone] Encounter Details Date Type Department Care Team (Late st Contact Info) Description 09/17/2024 Abstract [facility] [place] [facility] [address] [facility] [address] [place] [phone] Blane Beavers DO [address] [facility] [address] [place] [address] Social History Tobacco Use Types [...] Recorded Patient Health Questionnaire-2 Score 1 12/17/2023 [facility] of Occupat ional Health - Occupational [...] degree (e.g., MA, MS, Jennifer, MEd, DIRECTOR PROCESS ENGINEERING, NILAM) 03/19/2023 Comments Unknown Sex and Gender [...] [address] [place] [address] Blane Beavers DO [address] [place] [address] 10/30/2024 9:30 AM EDT [facility] [address] [place] [address] Penelope Walker NEUROLOGY TECHNICIAN-PEST CONTROL PILOT 112 [facility] 160 [place] [address] documented as of this encounter Visit Diagnoses Not on filedocumented in this encounter Care Teams Kraft Digester Operator Relationship Specialty Start Date End Date Blane Beavers DO [address] [facility] 230 [place] [address] PCP - General Family Medicine 02/09/23 Penelope Walker, NEUROLOGY TECHNICIAN-PEST CONTROL PILOT 112 [facility] 160 [place] [address] Nurse Practitioner Behavioral Health 07/28/22 documented as of this encounter
--- OUTSIDE RECORDS SUMMARY | 2024-09-26 12:25 | XMS_ITS | Encounter Summary ---
Author Organization [facility] Address [address] [place] [address] Care Team Providers Care Plugman Name Role Phone Penelope Walker TOUCH UP PAINTER HAND-PASTRY ARTIST Unavailable Blane Beavers DO Primary Care Provider Penelope Walker TOUCH UP PAINTER HAND-PASTRY ARTIST Unavailable Encounter Details Date Type Department Care Team (Late st Contact Info) Description 08/17/2023 Abstract [facility] [address] [facility] [address] [place] [address] Blane Beavers DO [address] [facility] [address] [place] [address] Social History Tobacco Use Types Packs/Day Years [...] Patient Health Questionnaire-2 Score 0 04/13/2023 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) Not on file Not on nidia e Not on file documented as of this encounter Plan of Treatment Upcoming Encounters Date Type Department Care Team (Late st Contact Info) Description 10/02/2024 10:00 AM EDT Office Visit [facility] [address] [place] [phone] Blane Beavers, [address] [place] [address] 10/30/2024 9:30 AM EDT [facility] 112 [facility] [address] [place] [address] Penelope Walker, TOUCH UP PAINTER HAND-PASTRY ARTIST 112 [facility] [address] [place] [address] documented as of this encounter Visit Diagnoses Not on filedocumented in this encounter Care Teams Plugman Relationship Specialty Start Date End Date Blane Beavers DO [address] [facility] 230 [place] [address] PCP - General Family Medicine 02/09/23 Penelope Walker, TOUCH UP PAINTER HAND-PASTRY ARTIST 112 [facility] [address] [place] [address] [facility] 02/20/24 Penelope Walker, TOUCH UP PAINTER HAND-PASTRY ARTIST 112 [facility] [address] [place] [address] Nurse Practitioner Behavioral Health 07/28/22 documented as of this encounter
--- OUTSIDE RECORDS SUMMARY | 2024-09-26 12:25 | XMS_ITS | Encounter Summary ---
Author Organization [facility] Address [id number] [address] [place] [address] Care Team Providers Care Security Rover Name Role Phone Unavailable Primary Care Provider Unavailabl e Encounter Details Date Type Department Care Team (Late st Contact Info) Description 05/20/2020 Telephone Maternal- Medicine at [facility] [address] [place] [address] Charley Reyes LPN Social History [...]
--- OUTSIDE RECORDS SUMMARY | 2024-09-26 12:25 | XMS_ITS ---
Author Organization [facility] Address [address] [facility] [place] [address] Care Team Providers Care Binder And Box Builder Name Role Phone ConsueloLes Penelope Collins FOREST FIRE SPECIALIST SUPERVISOR-HOGSHEAD STOCK CLERK Unavailable Blane Beavers DO Primary Care Provider + [phone] Inpatient Discharge Transitional Care Management (TCM) Status:Closed (Closed) Start date:09/24/2024 Enrollment date:09/26/2024 Enrollment reason:Identified using hospital discharge data End date:09/26/2024 Close reason:Discharged home Overview Patient discharged from [facility] on 09/24. Please contact for hospital GARRICK and schedule follow-up appointment within 7-14 days. <September 25, 2024, 13:30 - Kassy Rowell LPN> X1 attempt to reach pt. Called [facility] and per MR there is no DC summary yet. <September 26, 2024, 11:24 - Beth Jha RN> GARRICK completed. Meds reconciled with pt. Pt declines ccm and 30 day monitor Case Team Name Relationship Phone Beth Jha RN(Responsible Staff) Registered Nurse [phone] Continued Care and Services Coordination
--- OUTSIDE RECORDS SUMMARY | 2024-09-26 12:25 | XMS_ITS | Encounter Summary ---
Author Organization [facility] Address [address] [place] [address] Care Team Providers Care Tip Mender Name Role Phone Sury-Penelope Saldana WATERWORKS OPERATOR-DATA COLLECTION TECHNICIAN Unavailable Blane Beavers DO Primary Care Provider + [phone] Encounter Details Date Type Department Care Team (Latest Contact Info) Description 09/25/2024 Travel Social History Tobacco Use Types Packs/Day Years [...] often do you attend chur ch or yazidi services? Never 09/25/2024 Do you belong to [...] Recorded Patient Health Questionnaire-2 Score 1 12/17/2023 [facility] Questionnaire Answer [...] place to sleep or slept in a usp (including now)? No 02/09/2023 Housing Stability Vital Sign Answer Bhavin e Recorded In the last 12 months, was t here a time when you were not able to pay the mortgage or rent on time? No 09/25/2024 In the past 12 months, how m any times have you moved where you were living? 1 09/25/2024 At any time in the past [address] [facility], were you homeless or living in a usp (including now)? No 09/25/2024 Education Answer Date Recorded What is the highest level of school you have completed or the highest degree you have received? Master's degree (e.g., MA, MS, Jennifer, MEd, EARLY CHILDHOOD COORDINATOR, NILAM) 03/19/2023 Comments Unknown Sex and [...] Assessment Author 0 09/25/2024 8:39 AM EDT Raquel, Generic * Q1: How often do you have a drink containing alcohol? Answer Date of Assessment Author Never 09/25/2024 8:39 AM EDT Raquel, Generic * Q2: How many drinks containing [...] 10/02/2024 10:00 AM EDT Office Visit [facility] [address] [place] [address] Blane Beavers DO [address] [place] [address] 10/30/2024 9:30 AM EDT Office Visit [facility] [facility] [address] [facility] [address] [place] [address] Penelope Walker WATERWORKS OPERATOR-DATA COLLECTION TECHNICIAN [address] [facility] [address] [place] [address] documented as of this encounter Visit Diagnoses Not on filedocumented in this encounter Care Teams Tip Mender Relationship Specialty Start Date End Date Blane Beavers DO [address] [place] [address] PCP - General Family Medicine 02/09/23 Penelope Walker, WATERWORKS OPERATOR-DATA COLLECTION TECHNICIAN [address] [facility] [address] [place] [address] Nurse Practitioner Behavioral Health 07/28/22 documented as of this encounter
--- OUTSIDE RECORDS SUMMARY | 2024-09-26 12:25 | XMS_ITS | Encounter Summary ---
Author Organization [facility] Address [address] [facility] [place] [address] Care Team Providers Care Steam Bone Press Tender Name Role Phone Penelope Walker PROJECT COORDINATOR RN-COTTON CLASSER AIDE Unavailable Blane Beavers DO Primary Care Provider Penelope Walker PROJECT COORDINATOR RN-COTTON CLASSER AIDE Unavailable Encounter Details Date Type Department Care Team (Late st Contact Info) Description 08/17/2023 Abstract [facility] [address] [place] [address] Blane Beavers DO [address] [facility] [address] [place] [address] Social History Tobacco Use Types Packs/Day Years [...] often do you attend chur ch or confucianist services? 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 on file Not on nidia e Not on file documented as of this encounter Plan of Treatment Upcoming Encounters Date Type Department Care Team (Late st Contact Info) Description 10/02/2024 10:00 AM EDT Office Visit [facility] [address] [place] [address] Blane Beavers, [address] [place] [address] 10/30/2024 9:30 AM EDT Office Visit [facility] 112 [facility] [address] [place] [address] Penelope Walker, PROJECT COORDINATOR RN-COTTON CLASSER AIDE 112 [facility] [address] [place] [address] documented as of this encounter Visit Diagnoses Not on filedocumented in this encounter Care Teams Steam Bone Press Tender Relationship Specialty Start Date End Date Blane Beavers DO [address] [facility] 230 [place] [address] PCP - General Family Medicine 02/09/23 Penelope Walker, PROJECT COORDINATOR RN-COTTON CLASSER AIDE 112 [facility] [address] [place] [address] [facility] 02/20/24 Penelope Walker, PROJECT COORDINATOR RN-COTTON CLASSER AIDE [address] [facility] [address] [place] [address] Nurse Practitioner Behavioral Health 07/28/22 documented as of this encounter
--- OUTSIDE RECORDS SUMMARY | 2024-09-26 12:25 | XMS_ITS | Encounter Summary ---
Author Organization [facility] Address [address] [facility] [place] [address] Care Team Providers Care Tool Adjuster Name Role Phone Penelope Walker MEDICAL RECEPTION-MANAGER ADOBE Unavailable Blane Beavers DO Primary Care Provider [phone] Encounter Details Date Type Department Care Team (Late st Contact Info) Description 09/23/2024 Abstract [facility] [address] [facility] [address] [place] [address] Blane Beavers DO [address] [facility] [address] [place] [address] Social History Tobacco Use Types [...] often do you attend chur ch or jew services? Never 09/25/2024 Do you belong to [...] Recorded Patient Health Questionnaire-2 Score 1 12/17/2023 [facility] of Occupat ional Health - Occupational Stress [...] place to sleep or slept in a fpc (including now)? No 02/09/2023 Housing Stability Vital Sign Answer Bhavin e Recorded In the last 12 months, was t here a time when you were not able to pay the mortgage or rent on time? No 09/25/2024 In the past 12 months, how m any times have you moved where you were living? 1 09/25/2024 At any time in the past 12 m [facility], were you homeless or living in a fpc (including now)? No 09/25/2024 Education Answer Date Recorded What is the highest level of school you have completed or the highest degree you have received? Master's degree (e.g., MA, MS, Jennifer, MEd, CLEANING STAFF SUPERVISOR, NILAM) 03/19/2023 Comments Unknown Sex and Gender [...] [address] [place] [address] Blane Beavers DO [address] [place] [address] 10/30/2024 9:30 AM EDT Office Visit [facility] [address] [place] [address] Penelope Walker, MEDICAL RECEPTION-MANAGER ADOBE [address] [place] [address] documented as of this encounter Visit Diagnoses Not on filedocumented in this encounter Care Teams Tool Adjuster Relationship Specialty Start Date End Date Blane Beavers DO [address] [place] [address] PCP - General Family Medicine 02/09/23 Penelope Walker, MEDICAL RECEPTION-MANAGER ADOBE [address] [place] [address] Nurse Practitioner Behavioral Health 07/28/22 documented as of this encounter
--- OUTSIDE RECORDS SUMMARY | 2024-09-26 12:26 | XMS_ITS | Encounter Summary ---
Author Organization [facility] Address [address] [facility] [place] [place] [address] Care Team Providers Care Chocolate Packer Name Role Phone Penelope Walker SENIOR PAINTER-FRONT END MANAGER Unavailable Blane Beavers DO Primary Care Provider [phone] Encounter Details Date Type Department Care Team (Late st Contact Info) Description 09/18/2024 Abstract [facility] [address] [place] [address] Blane Beavers DO [address] [facility] [address] [place] [address] Social History Tobacco Use Types [...] How often do you attend chur or worship services? Never 02/09/2023 Do you belong to any clubs o r organizations such as baptism groups, unions, fraternal or athletic groups, or [...] Recorded Patient Health Questionnaire-2 Score 1 12/17/2023 [facility] of Occupat ional [...] Master's degree (e.g., MA, MS, Jennifer, MEd, INVENTORY CONTROL ASSISTANT, NILAM) 03/19/2023 Comments Unknown Sex and [...] [address] [place] [address] Blane Beavers DO [address] [place] [address] 10/30/2024 9:30 AM EDT Office [facility] [address] [place] [address] Penelope Walker SENIOR PAINTER-FRONT END MANAGER 112 [facility] 160 [place] [address] documented as of this encounter Visit Diagnoses Not on filedocumented in this encounter Care Teams Chocolate Packer Relationship Specialty Start Date End Date Blane Beavers DO [address] [facility] 230 [place] [address] PCP - General Family Medicine 02/09/23 Penelope Walker, SENIOR PAINTER-FRONT END MANAGER 112 [facility] 160 [place] [address] Nurse Practitioner Behavioral Health 07/28/22 documented as of this encounter
--- OUTSIDE RECORDS SUMMARY | 2024-09-26 12:26 | XMS_ITS | Encounter Summary ---
Author Organization [facility] Address [address] [facility] [place] [address] Care Team Providers Care Electrician Supervisor Substation Name Role Phone Penelope Walker MONTESSORI TEACHER-LEAD SPRINKLER Unavailable Blane Beavers DO Primary Care Provider [phone] Encounter Details Date Type Department Care Team (Late st Contact Info) Description 09/09/2024 Abstract [facility] [address] [facility] [address] [place] [address] Blane Beavers DO [address] [facility] [address] [place] [address] Social History Tobacco Use Types [...] How often do you attend chur or mosque services? Never 02/09/2023 Do you belong to any clubs o r organizations such as restorationist groups, unions, fraternal or athletic groups, or [...] Recorded Patient Health Questionnaire-2 Score 1 12/17/2023 [facility] of Occupat ional Health [...] in a usp (including now)? No 02/09/2023 Education Answer Date Recorded What is the highest level of school you have completed or the highest degree you have received? Master's degree (e.g., MA, MS, Jennifer, MEd, JAVA SDET, NILAM) 03/19/2023 Comments Unknown Sex and Gender [...] [address] [place] [address] Blane Beavers DO [address] [place] [address] 10/30/2024 9:30 AM EDT Office [facility] [address] [place] [address] Penelope Walker MONTESSORI TEACHER-LEAD SPRINKLER 112 [facility] [address] [place] [address] documented as of this encounter Visit Diagnoses Not on filedocumented in this encounter Care Teams Electrician Supervisor Substation Relationship Specialty Start Date End Date Blane Beavers DO [address] [facility] 230 [place] [address] PCP - General Family Medicine 02/09/23 Penelope Walker, MONTESSORI TEACHER-LEAD SPRINKLER 112 [facility] [address] [place] [address] Nurse Practitioner Behavioral Health 07/28/22 documented as of this encounter
--- OUTSIDE RECORDS SUMMARY | 2024-09-26 12:26 | XMS_ITS | Encounter Summary ---
Author Organization [facility] Address [address] [facility] [place] [address] Care Team Providers Care Boatswain Mate Name Role Phone Penelope Walker EQUINE PHARMACOLOGY TECHNICIAN-WAFER SUBSTRATE TESTER Unavailable Blane Beavers DO Primary Care Provider [phone] Encounter Details Date Type Department Care Team (Late st Contact Info) Description 09/22/2024 Abstract [facility] [address] [facility] [address] [place] [address] Blane Beavers DO [address] [facility] [address] [place] [address] Social History Tobacco Use Types [...] often do you attend chur ch or jainism services? Never 09/25/2024 Do you belong to any clubs o r organizations such as confucianism groups, unions, fraternal or athletic groups, or [...] Recorded Patient Health Questionnaire-2 Score 1 12/17/2023 [facility] of Occupat ional Health - Occupational Stress [...] in a penitentiary (including now)? No 02/09/2023 Housing Stability Vital [...] time in the past [address] [facility], were you homeless or living in a penitentiary (including now)? No 09/25/2024 Education Answer Date Recorded What is the highest level of school you have completed or the highest degree you have received? Master's degree (e.g., MA, MS, Jennifer, MEd, MOVING VAN DRIVER, NILAM) 03/19/2023 Comments Unknown Sex and [...] [address] [place] [address] Blane Beavers DO [address] [place] [address] 10/30/2024 9:30 AM EDT Office Visit [facility] [facility] [address] [place] [address] Penelope Walker, EQUINE PHARMACOLOGY TECHNICIAN-WAFER SUBSTRATE TESTER [address] [place] [address] documented as of this encounter Visit Diagnoses Not on filedocumented in this encounter Care Teams Boatswain Mate Relationship Specialty Start Date End Date Blane Beavers DO [address] [place] [address] PCP - General Family Medicine 02/09/23 Penelope Walker, EQUINE PHARMACOLOGY TECHNICIAN-WAFER SUBSTRATE TESTER [address] [place] [address] Nurse Practitioner Behavioral Health 07/28/22 documented as of this encounter
--- OUTSIDE RECORDS SUMMARY | 2024-09-26 12:26 | XMS_ITS | Encounter Summary ---
Author Organization [facility] Address [address] [place] [address] Care Team Providers Care Placement Officer Name Role Phone Abrahan Merrill MD Primary Care Provider + [phone] Penelope Walker SENIOR COMPUTER SPECIALIST-UPPER CASER Unavailable Blane Beavers DO Primary Care Provider + [phone] Penelope Walker SENIOR COMPUTER SPECIALIST-UPPER CASER Unavailable Encounter Details Date Type Department Care Team (Late st Contact Info) Description 01/29/2023 [facility] [address] [facility] [address] [place] [address] Blane Beavers DO [address] [facility] 230 [place] [address] Social History Tobacco Use Types [...] Upcoming Encounters Date Type Department Care Team ([facility] Contact Info) Description 10/02/2024 10:00 AM EDT Office Visit [facility] [address] [address] Blane Beavers DO [address] [address] 10/30/2024 9:30 AM EDT Office [facility] [address] [facility] 160 [place] [address] Penelope Walker APRN-UPPER CASER 112 [facility] 160 [place] [address] documented as of this encounter Visit Diagnoses Not on filedocumented in this encounter Care Teams Placement Officer Relationship Specialty Start Date End Date Abrahan Merrill MD [address] [place] [address] PCP - General Family Medicine 07/28/22 02/08/23 Blane Beavers DO [address] [address] PCP - General Family Medicine 02/09/23 Penelope Walker SENIOR COMPUTER SPECIALIST-UPPER CASER 112 [facility] 160 [place] [address] PCP - [place] [employer] 02/20/24 Penelope Walker, SENIOR COMPUTER SPECIALIST-UPPER CASER [address] [address] Nurse Practitioner Behavioral Health 07/28/22 documented as of this encounter
--- OUTSIDE RECORDS SUMMARY | 2024-09-26 12:26 | XMS_ITS | Encounter Summary ---
Author Organization [facility] Address [address] [facility] [place] [address] Care Team Providers Care Flag Signaler Name Role Phone Penelope Walker DIGITAL ACCOUNT SUPERVISOR-LOADING UNIT OPERATOR Unavailable Blane Beavers DO Primary Care Provider [phone] Encounter Details Date Type Department Care Team (Late st Contact Info) Description 09/19/2024 Abstract [facility] [address] [facility] [address] [place] [address] Blane Beavers DO [address] [facility] [address] [place] [address] Social History Tobacco Use Types [...] How often do you attend chur or gnosticism services? Never 02/09/2023 Do you belong to any clubs o r organizations such as voodoo groups, unions, fraternal or athletic groups, or [...] Recorded Patient Health Questionnaire-2 Score 1 12/17/2023 [facility] of Occupat ional Health [...] degree (e.g., MA, MS, Jennifer, MEd, SENIOR SHAREPOINT DEVELOPER, NILAM) 03/19/2023 Comments Unknown Sex and [...] [address] [place] [address] Blane Beavers DO [address] [place] [address] 10/30/2024 9:30 AM EDT Office [facility] [address] [place] [address] Penelope Walker DIGITAL ACCOUNT SUPERVISOR-LOADING UNIT OPERATOR 112 [facility] 160 [place] [address] documented as of this encounter Visit Diagnoses Not on filedocumented in this encounter Care Teams Flag Signaler Relationship Specialty Start Date End Date Blane Beavers DO [address] [facility] 230 [place] [address] PCP - General Family Medicine 02/09/23 Penelope Walker, DIGITAL ACCOUNT SUPERVISOR-LOADING UNIT OPERATOR 112 [facility] 160 [place] [address] Nurse Practitioner Behavioral Health 07/28/22 documented as of this encounter
--- OUTSIDE RECORDS SUMMARY | 2024-09-26 12:26 | XMS_ITS | Encounter Summary ---
Author Organization [facility] Address [address] [place] [address] Care Team Providers Care Rod Buster Helper Name Role Phone Penelope Walker COST ESTIMATING ENGINEER-DRILL SHARPENER OPERATOR Unavailable Blane Beavers DO Primary Care Provider [phone] Encounter Details Date Type Department Care Team (Late st Contact Info) Description 09/22/2024 Abstract [facility] [address] [place] [address] Blane Beavers DO [address] [facility] [address] [place] [address] Social History Tobacco Use Types [...] often do you attend chur ch or jehovah's witness services? Never 09/25/2024 Do you belong to any clubs o r organizations such as jainism groups, unions, fraternal or athletic groups, or [...] Recorded Patient Health Questionnaire-2 Score 1 12/17/2023 [facility] of Occupat ional Health - Occupational Stress [...] in a retirement (including now)? No 02/09/2023 Housing Stability Vital [...] time in the past [address] [facility], were you homeless or living in a retirement (including now)? No 09/25/2024 Education Answer Date Recorded What is the highest level of school you have completed or the highest degree you have received? Master's degree (e.g., MA, MS, Jennifer, MEd, [employer], NILAM) 03/19/2023 Comments Unknown Sex and Gender [...] [address] [place] [address] Blane Beavers DO [address] [place] [address] 10/30/2024 9:30 AM EDT Office Visit [facility] [address] [place] [address] Penelope Walker, COST ESTIMATING ENGINEER-DRILL SHARPENER OPERATOR [address] [place] [address] documented as of this encounter Visit Diagnoses Not on filedocumented in this encounter Care Teams Rod Buster Helper Relationship Specialty Start Date End Date Blane Beavers DO [address] [place] [address] PCP - General Family Medicine 02/09/23 Penelope Walker, COST ESTIMATING ENGINEER-DRILL SHARPENER OPERATOR [address] [place] [address] Nurse Practitioner Behavioral Health 07/28/22 documented as of this encounter
--- OUTSIDE RECORDS SUMMARY | 2024-09-26 12:26 | XMS_ITS | Encounter Summary ---
Author Organization [facility] Address [address] [facility] [place] [address] Care Team Providers Care Baggage Smasher Name Role Phone Penelope Walker NATIONAL FLATBED TRUCK DRIVER-SENIOR PROCESS CONTROL TECH Unavailable Blane Beavers DO Primary Care Provider [phone] Encounter Details Date Type Department Care Team (Late st Contact Info) Description 09/09/2024 Abstract [facility] [address] [place] [address] Blane Beavers DO [address] [place] [address] Social History Tobacco Use Types [...] any clubs o r organizations such as scientologist groups, unions, fraternal or athletic groups, or [...] Recorded Patient Health Questionnaire-2 Score 1 12/17/2023 [facility] of Occupat ional [...] Master's degree (e.g., MA, MS, Jennifer, MEd, AIR LIAISON AND SPECIAL STAFF, NILAM) 03/19/2023 Comments Unknown Sex and Gender [...] [address] [place] [address] Blane Beavers DO [address] [place] [address] 10/30/2024 9:30 AM EDT [facility] [address] [place] [address] Penelope Walker NATIONAL FLATBED TRUCK DRIVER-SENIOR PROCESS CONTROL TECH 112 [facility] 160 [place] [address] documented as of this encounter Visit Diagnoses Not on filedocumented in this encounter Care Teams Baggage Smasher Relationship Specialty Start Date End Date Blane Beavers DO [address] [facility] 230 [place] [address] PCP - General Family Medicine 02/09/23 Penelope Walker, NATIONAL FLATBED TRUCK DRIVER-SENIOR PROCESS CONTROL TECH 112 [facility] 160 [place] [address] Nurse Practitioner Behavioral Health 07/28/22 documented as of this encounter
--- OUTSIDE RECORDS SUMMARY | 2024-09-26 12:26 | XMS_ITS | Encounter Summary ---
Author Organization [facility] Address [address] [place] [place] [address] Care Team Providers Care Tube Drawing Supervisor Name Role Phone Penelope Walker CLIENT CARE MANAGER-LABORER PULLET FARM Unavailable Blane Beavers DO Primary Care Provider [phone] Encounter Details Date Type Department Care Team (Late st Contact Info) Description 09/22/2024 Abstract [facility] [address] [place] [address] Blane Beavers DO [address] [facility] [address] [place] [address] Social History Tobacco Use Types [...] attend chur ch or advent services? Never 09/25/2024 Do you belong to [...] Recorded Patient Health Questionnaire-2 Score 1 12/17/2023 [facility] of Occupat ional Health - Occupational Stress [...] in a custodial (including now)? No 02/09/2023 Housing Stability Vital [...] time in the past 12 m [facility], were you homeless or living in a custodial (including now)? No 09/25/2024 Education Answer Date Recorded What is the highest level of school you have completed or the highest degree you have received? Master's degree (e.g., MA, MS, Jennifer, MEd, RETAIL RECEIVING CLERK, NILAM) 03/19/2023 Comments Unknown Sex and [...] [address] [place] [address] Blane Beavers DO [address] [place] [address] 10/30/2024 9:30 AM EDT Office Visit [facility] [address] [place] [address] Penelope Walker, CLIENT CARE MANAGER-LABORER PULLET FARM [address] [place] [address] documented as of this encounter Visit Diagnoses Not on filedocumented in this encounter Care Teams Tube Drawing Supervisor Relationship Specialty Start Date End Date Blane Beavers DO [address] [place] [address] PCP - General Family Medicine 02/09/23 Penelope Walker, CLIENT CARE MANAGER-LABORER PULLET FARM [address] [place] [address] Nurse Practitioner Behavioral Health 07/28/22 documented as of this encounter
--- OUTSIDE RECORDS SUMMARY | 2024-09-26 12:26 | XMS_ITS | Encounter Summary ---
Author Organization [facility] Address [address] [facility] [place] [address] Care Team Providers Care Primary Care Sales Representative Name Role Phone Penelope Walker LINE SERVICE PERSON-SLOT ROUTER Unavailable Blane Beavers DO Primary Care Provider [phone] Encounter Details Date Type Department Care Team (Late st Contact Info) Description 09/22/2024 Abstract [facility] [address] [facility] [address] [place] [address] Blane Beavers DO [address] [facility] [address] [place] [address] Social History Tobacco Use Types [...] Recorded Patient Health Questionnaire-2 Score 1 12/17/2023 [facility] [place] of Occupat ional Health - Occupational Stress [...] any time in the past 12 m [facility], were you homeless or living in a penitentiary (including now)? No 09/25/2024 Education Answer Date Recorded What is the highest level of school you have completed or the highest degree you have received? Master's degree (e.g., MA, MS, Jennifer, MEd, DERRICK ENGINEER, NILAM) 03/19/2023 Comments Unknown Sex and [...] [address] [place] [address] Blane Beavers DO [address] [place] [address] 10/30/2024 9:30 AM EDT Office Visit [facility] [address] [place] [address] Penelope Walker, LINE SERVICE PERSON-SLOT ROUTER [address] [place] [address] documented as of this encounter Visit Diagnoses Not on filedocumented in this encounter Care Teams Primary Care Sales Representative Relationship Specialty Start Date End Date Blane Beavers DO [address] [place] [address] PCP - General Family Medicine 02/09/23 Penelope Walker, LINE SERVICE PERSON-SLOT ROUTER [address] [place] [address] Nurse Practitioner Behavioral Health 07/28/22 documented as of this encounter
--- OUTSIDE RECORDS SUMMARY | 2024-09-26 12:26 | XMS_ITS | Encounter Summary ---
Author Organization [facility] Address [address] [place] [place] [address] Care Team Providers Care Silver Chaser Name Role Phone Penelope Walker COMMERCIAL LOAN ANALYST-BEHAVIORAL SCIENCE CHAIR Unavailable Blane Beavers DO Primary Care Provider [phone] Encounter Details Date Type Department Care Team (Late st Contact Info) Description 09/19/2024 Abstract [facility] [address] [facility] [facility] [address] [place] [address] Blane Beavers DO [address] [facility] [address] [place] [address] Social History Tobacco Use Types [...] How often do you attend chur or zoroastrian services? Never 02/09/2023 Do you belong to any clubs o r organizations such as episcopalian groups, unions, fraternal or athletic groups, or [...] Recorded Patient Health Questionnaire-2 Score 1 12/17/2023 [facility] of Occupat ional Health [...] degree (e.g., MA, MS, Jennifer, MEd, SENIOR INSIGHT MANAGER INTERNATIONAL, NILAM) 03/19/2023 Comments Unknown Sex and Gender [...] [address] [place] [address] Blane Beavers DO [address] [place] [address] 10/30/2024 9:30 AM EDT Office [facility] [address] [place] [address] Penelope Walker COMMERCIAL LOAN ANALYST-BEHAVIORAL SCIENCE CHAIR 112 [facility] 160 [place] [address] documented as of this encounter Visit Diagnoses Not on filedocumented in this encounter Care Teams Silver Chaser Relationship Specialty Start Date End Date Blane Beavers DO [address] [facility] 230 [place] [address] PCP - General Family Medicine 02/09/23 Penelope Walker, COMMERCIAL LOAN ANALYST-BEHAVIORAL SCIENCE CHAIR 112 [facility] 160 [place] [address] Nurse Practitioner Behavioral Health 07/28/22 documented as of this encounter
--- OUTSIDE RECORDS SUMMARY | 2024-09-26 12:26 | XMS_ITS | Encounter Summary ---
Author Organization [facility] Address [address] [place] [address] Care Team Providers Care Minilab Operator Name Role Phone Penelope Walker BOTTLE TESTER-ROSS FURNACE OPERATOR Unavailable Blane Beavers DO Primary Care Provider [phone] Encounter Details Date Type Department Care Team (Late st Contact Info) Description 09/18/2024 Abstract [facility] [address] [place] [address] Blane Beavers DO [address] [email or web address] [address] [place] [address] Social History Tobacco Use Types [...] How often do you attend chur or buddhism services? Never 02/09/2023 Do you belong to any clubs o r organizations such as islam groups, unions, fraternal or athletic groups, or [...] Recorded Patient Health Questionnaire-2 Score 1 12/17/2023 [facility] of Occupat ional Health - Occupational [...] Master's degree (e.g., MA, MS, Jennifer, MEd, TRUCKMAN, NILAM) 03/19/2023 Comments Unknown Sex and Gender [...] [address] [place] [address] Blane Beavers DO [address] [place] [address] 10/30/2024 9:30 AM EDT Office [facility] [address] [place] [address] Penelope Walker BOTTLE TESTER-ROSS FURNACE OPERATOR 112 [facility] 160 [place] [address] documented as of this encounter Visit Diagnoses Not on filedocumented in this encounter Care Teams Minilab Operator Relationship Specialty Start Date End Date Blane Beavers DO [address] [facility] 230 [place] [address] PCP - General Family Medicine 02/09/23 Penelope Walker, BOTTLE TESTER-ROSS FURNACE OPERATOR 112 [facility] 160 [place] [address] Nurse Practitioner Behavioral Health 07/28/22 documented as of this encounter
[2024-09-26 12:51] LABS: Hematocrit 33.5 % (36.0-48.0); Hemoglobin 10.7 g/dL (12.0-16.0); Mean Corpuscular HGB Conc 31.9 g/dL (29.9-35.2); Mean Corpuscular Hemoglobin 26.3 pg (26.7-34.0); Mean Corpuscular Volume 82.3 fL (81.0-99.0); Red Blood Count 4.07 10^6/uL (4.20-5.40); White Blood Count 22.2 10^3/uL (4.0-11.0)
[2024-09-26 13:19] LABS: Lymphocytes Absolute Manual 3.33 10^3/uL (1.20-3.80); Lymphocytes Percent Manual 15.0 % (20.5-60.0); Monocytes Absolute Manual 1.33 10^3/uL (0.30-0.80); Monocytes Percent Manual 6.0 % (1.7-12.0); Platelet Count 1047 10^3/uL (150-450); Segmented Neut Absolute Manual 17.09 10^3/uL (1.4-6.5); Segmented Neutrophils % Manual 77.0 (43.0-75.0)
[2024-09-26 13:20] LABS: Basophils Abs Manual 0.00 10^3/uL (0.00-0.10); Basophils Percent Manual 0.0 % (0.2-2.0); Eosinophils Absolute Manual 0.44 10^3/uL (0.00-0.70); Eosinophils Percent Manual 2.0 % (0.9-7.0)
[2024-09-26 13:53] LABS: Anion Gap 14.9; Blood Urea Nitrogen 21.0 mg/dL (7.0-18.0); Calcium 9.3 mg/dL (8.5-10.1); Carbon Dioxide 26.4 mmol/L (21.0-32.0); Chloride 99 mmol/L (98-107); Estimated GFR (African America >60 (>=60 mL/min/1.73m^2); Estimated GFR (Non-African Ame 55 (>=60 mL/min/1.73m^2); Glucose 109 mg/dL (74-106); Potassium 4.3 mmol/L (3.5-5.1); Sodium 136 mmol/L (136-145)
== END 2024-09-26 12:20 | disposition home or self-care (01) ==
LOC: LAB 12:23
PROVIDERS: PCP Family Medicine; Visit Provider Internal Medicine
DX: R10.84 Generalized abdominal pain (principal); Z96.0 Presence of urogenital implants; D75.838 Other thrombocytosis; D72.828 Other elevated white blood cell count; D64.9 Anemia, unspecified
CPT/HCPCS: 36415; 80048; 85007; 85027

== ENCOUNTER 2024-10-23 14:45 | Outpatient (OUT) | payer OTHER, SELFPAY ==
--- OUTSIDE RECORDS SUMMARY | 2018-09-25 09:00 | XMS_ITS | Continuity of Care Document ---
Author Organization [facility] Address [address] [facility] [place] [address] Phone Care Team Providers Care Gear Hobber Set Up Operator Name Role Phone Unavailable Unavailable Unavailable Procedures [...] Immunity Screen, ACIF. @ Test Performed By: [employer] [facility] Boby Casey M.D., Ph.D., Loaf Counter [address] [place] [address] [facility] #[id number] Panel Description: Mumps IgG Ab Final SPECIMEN: [...] Diagnoses Date Provider Providers Copied on Encounter [facility], [address] [facility], [place], [place], [id number], [place] tel:[phone] [facility] No Information No Information Family History Family Member Type Diagnosis Age At Onset No Information Payers Payer name Insurance type Covered green party ID Authoriza tion(s) No Information Social History [...]
--- OUTSIDE RECORDS SUMMARY | 2020-09-09 09:48 | XMS_ITS | Continuity of Care Document ---
Author Organization [facility] Address [address] [place] [address] Phone Care Team Providers Care Print Inspector Name Role Phone Dee Gonzalez Unavailable Unavaila [...] Diagnoses Date Provider Providers Copied on Encounter [facility], [address] [place], [place], [id number], [place] tel:[phone] [facility] No Information 1 Maykel Price. [address] [place], [place], [id number] , [place]. tel:[phone] [facility], [address] [place], [place], [address], [place] tel:[phone] [facility] No Information 0 Caio Geller. [address] [place], [place], [id number] , [place]. tel: [phone] [facility], [address] [place], [place], [address], [place] tel:[phone] [facility] Encounter for screening for respiratory [facility] 9 [facility] [address] [place], [address] , [place]. tel: [phone] [facility], [address] [place] [address], [id number], [place] tel:[phone] [facility] Encounter for screening for respiratory tuberculosis 9 [facility] DO Gauthier. [address] [place], [place], [address] , [place]. tel: [phone] OFFICE/OUTPAT IENT VISIT, EST [facility], [address] [place], [place], [address], [place] tel:[phone] [facility] Initial Visit (chief complaint) control (chief complaint) Gynecological ExaminationOther specified contraceptive managementNeoplasm of uncertain behavior of other and unspecified female genital organs 4 [facility] [address] [place], [place], [address] , [place]. tel: [phone] Family History Family Member Type Diagnosis Age At Onset Mother Problem (finding) Alive and well Paternal grandfather Problem (finding) malignant neopl asm of lung Father Problem (finding) Alive and well Immunizations Vaccine Date Status Comments Flulaval/ Fluarix administered Source: Ne w Immunization Record Influenza administered Source: New Imm unization Record Tdap (Boostrix) administered Source: New Immunization Record Payers Payer name Insurance type Covered republican ID Authoriza tiadniel(s) [place] [facility]FC 190 [id number] Medicaid Wrap - [facility] [place] [id number] [place] [facility] [place] 190 [id number] [place] [facility] [place] 190 [id number] Medicaid Wrap - [facility] [place] [id number] Social History Type Description Quantity Date Captured [...]
--- OUTSIDE RECORDS SUMMARY | 2024-10-10 08:28 | XMS_ITS | Continuity of Care Document ---
Author Organization [facility] Address [address] [place] [address] Phone Care Team Providers Care [place] Pur[place] Name Role Phone Abrahan Merrill MD Primary Care Provider Jesse Jaime DO Emergency Provider [phone] Mily Young MD Attending Provider [phone] Margarita Marie DO Attending Provider Soy Urena DO Attending Provider [phone] Blane Beavers DO Primary Care Provider [phone] Jesse Ba MD Attending Provider Tana Tellez ARCHITECTURAL ASSOCIATE-C Attending Provider Blane Severino II DO Attending Provider Care Teams Patient Care Team Team Status: Active Member Role Status Dates Blane Beavers DO Primary Care Provider Active Visit Care Team Team Status: Inactive Member Role Status Dates Arbahan Merrill MD Primary Care Provider Active Start: September 06, 2024 End: September 06, 2024 Jesse Jaime DO Emergency Provider Active St art: September 06, 2024 End: September 06, 2024 Visit Care Team Team Status: Inactive Member Role Status Dates Mily Young MD Attending Provider Active Sta rt: September 06, 2024 End: September 06, 2024 Visit Care Team Team Status: Inactive Member Role Status Dates Margarita Marie , DO Attending Provider Active Start: September 17, 2024 End: September 17, 2024 Visit Care Team Team Status: Inactive Member Role Status Dates Soy Urena DO Attending Provider Active St art: September 26, 2024 End: September 26, 2024 Visit Care Team Team Status: Inactive Member Role Status Dates Blane Beavers DO Primary Care Provider Active Start: September 30, 2024 End: September 30, 2024 Jesse Ba MD Attending Provider Active St art: September 30, 2024 End: September 30, 2024 Visit Care Team Team Status: Inactive Member Role Status Dates Blane Beavers DO Primary Care Provider Active Start: October 04, 2024 End: October 04, 2024 Jesse Ba MD Attending Provider Active St art: October 04, 2024 End: October 04, 2024 Patient Care Team Team Status: Inactive Member Role Status Dates RICHIE EarlC Attending Provider Active Start: October 10, 2024 End: October 10, 2024 Blane Beavers DO Primary Care Provider Active Start: October 10, 2024 End: October 10, 2024 Visit Care Team Team Status: Active Member Role Status Dates Blane Severino II, DO Attending Provider Active Start: October 10, 2024 Blane Beavers DO Primary Care Provider Active Start: October 10, 2024 Chief Complaint and Reason for Visit Chief Complaint Admit Date rt side pain-hx stones September 06, 2024 4 :20pm Unknown September 06, 2024 6:00 pm Unknown September 17, 2024 12:5 5am Unknown September 26, 2024 12: 19pm n20.0 September 30, 2024 10 :23am N20.0 N12 October 04, 2024 10 :47am NEW thrombocytopenia October 10, 2024 1 0:59am thrombocytopenia October 10, 2024 11 :00am Allergies, Adverse Reactions, Alerts Allergen Type Severity Reaction Last Updated Verified Status Comments nuva ring Allergy Unknown Unknown Reaction October 10, 2024 11:18am No Active suicidal ideation Social History Smoking Status Status Start Date End Date Date of Observa tion Never smoked tobacco (finding) August 29, 2020 10:34pm Observation Status Observation Response Date of Response Legal Sex Female (finding) Sex Assigned At Female December [birth year] Problems Active Problems Medical Problem Onset Date Status Comments Iron deficiency Unknown Active Inactive/Resolved Problems Medical Problem Onset Date Status Comments Urinary tract infection Unknown Resolved Prob corby List clean-up per request of Phys. EHR Cmte Hyperemesis gravidarum Unknown Resolved Probl em List clean-up per request of Phys. EHR Cmte Unknown Resolved Problem List cl dalila-up per request of Phys. EHR Cmte Asymptomatic bacteriuria in Unknown Resolved Problem List clean-u p per request of Phys. EHR Cmte Nausea and vomiting Unknown Resolved Problem List clean-up per request of Phys. EHR Cmte Medications Medication Status Dose Units Route Directions Qty Days St art Date Stop Date End Date Instructions Adherence Cephalexin (Keflex) 500 mg capsule Discont inued 500 MG PO Twice daily 2017 1:00am Febru edouard 2017 1:00a m Febru edouard 2017 1:04a m space evenly during waking hours Ondansetron (Zofran Odt) 4 mg tablet,disi ntegrating Discont inued 4 MG PO Q8H as needed for nausea and vomiting 9 2017 1:00am Augus t 2017 9:40a m Sertraline 100 mg tablet Active 100 MG PO Daily at bedtime August 29, 2020 12:00a m Unknown Ferrous Sulfate 325 mg (65 mg iron) tablet Discont inued 325 MG PO Daily 30 August 31, 2020 12:00a m Augus t 2024 11:14 am Ibuprofen 600 mg tablet Discont inued 600 MG PO Every 6 hours as needed for pain August 31, 2020 12:00a m Augus t 2024 11:14 am do not exceed 4 doses in a 24 hour period Tramadol 50 mg tablet Discont inued 50 MG PO Q6H as needed for pain 10 October 09, 2017 12:00a m [facility] cynthia 2019 5:54p m Ibuprofen 600 mg tablet Discont inued 600 MG PO Every 6 hours as needed for pain October 09, 2017 12:00a m [facility] cynthia 2019 5:54p m do not exceed 4 doses in a 24 hour period Ondansetron 4 mg Tablet,Disi ntegrating Discont inued 4 MG PO Q6H [facility] er 2019 1:00am August 29, 2020 11:03 pm Cephalexin (Keflex) 250 mg capsule Discont inued 250 MG PO Four times daily 28 7 [facility] er 2019 1:00am August 29, 2020 11:04 pm Metoclopram char Hcl (Reglan) 10 mg tablet Discont inued 10 MG PO Q6H as needed for nausea and vomiting 5 3 [facility] er 2019 1:00am August 29, 2020 11:03 pm Lamotrigine (Lamictal) 100 mg tablet Active 100 MG PO Daily October 10, 2024 12:00a m Unknown Cariprazine (Vraylar) 3 mg capsule Active 3 MG PO Daily October 10, 2024 12:00a m Unknown Ondansetron 8 mg tablet,disi ntegrating Active 8 MG PO Every 8 hours as needed for nausea and vomiting October 10, 2024 12:00a m Unknown Promethazin e 25 mg tablet Active 25 MG PO Every 6 hours as needed for nausea and vomiting October 10, 2024 12:00a m Unknown Immunizations Immunization Event Date Not Given Reason Dose Number [employer] Lot Number Vaccine Information Statement (VIS) Detail Administration Location Tetanus, Diphtheria, Pertussis (Tdap) October 09, 2017 [id number] [facility] Procedures Procedure Date Performed Status XR chest 2V* October 04, 2024 11:09am comple richi Urine Culture September 06, 2024 completed Urine Culture September 17, 2024 completed Relevant Diagnostic Tests and/or Laboratory Data Laboratory Results Test Collection Date/Time Result Date/Time Result Interpretation Reference Range Result Comment Performing Site Correcte d White Blood Count September 30, 2024 10:30am September 30, 2024 11:36am 18.3 10*3/uL Above high normal 3.8-11.6 [facility] [id number] [address] [facility] [address] Correcte d White Blood Count October 04, 2024 10:59am October 04, 2024 1:12pm 12.3 10*3/uL Above high normal 3.8-11.6 [facility] [id number] [address] [facility] [address] Uncorrec richi WBC Count September 30, 2024 10:30am September 30, 2024 11:36am 18.3 10*3/uL Above high normal 3.8-11.6 [facility] [id number] [address] [facility] [address] Uncorrec richi WBC Count October 04, 2024 10:59am October 04, 2024 1:12pm 12.3 10*3/uL Above high normal 3.8-11.6 [facility] [id number] [address] [place] [address] 51748 Red Blood Count September 30, 2024 10:30am September 30, 2024 11:36am 4.13 10*6/uL 3.60-5.00 [facility] [id number] [address] [place] [address] 79178 Red Blood Count October 04, 2024 10:59am October 04, 2024 1:12pm 4.20 10*6/uL 3.60-5.00 [facility] [id number] [address] [place] [address] 87275 Hemoglob in September 30, 2024 10:30am September 30, 2024 11:36am 10.9 g/dL Below low normal 11.8-15.4 [facility] [id number] [address] [place] [address] 82794 Hemoglob in October 04, 2024 10:59am October 04, 2024 1:12pm 11.1 g/dL Below low normal 11.8-15.4 [facility] [id number] [address] [place] [address] 59258 Hematocr it September 30, 2024 10:30am September 30, 2024 11:36am 32.6 % Below low normal 34.0-46.4 [facility] [id number] [address] [facility] 84[address] Hematocr it October 04, 2024 10:59am October 04, 2024 1:12pm 33.2 % Below low normal 34.0-46.4 [facility] [id number] [address] [place] [address] 96708 Mean Corpuscu lar Volume September 30, 2024 10:30am September 30, 2024 11:36am 79.1 fL Below low normal 80-100 [facility] [id number] [address] [place] [address] 31712 Mean Corpuscu lar Volume October 04, 2024 10:59am October 04, 2024 1:12pm 79.1 fL Below low normal 80-100 [facility] [id number] [address] [place] [address] 55351 Mean Corpuscu lar Hemoglob in September 30, 2024 10:30am September 30, 2024 11:36am 26.4 pg 24.7-34.3 [facility] [id number] [address] [place] [address] 52843 Mean Corpuscu lar Hemoglob in October 04, 2024 10:59am October 04, 2024 1:12pm 26.5 pg 24.7-34.3 [facility] [id number] [address] [place] [address] 94042 Mean Corpuscu lar Hemoglob in [place] September 30, 2024 10:30am September 30, 2024 11:36am 33.4 g/dL 32.0-35.0 [facility] [id number] [address] [place] [address] 26391 Mean Corpuscu lar Hemoglob in [place] October 04, 2024 10:59am October 04, 2024 1:12pm 33.6 g/dL 32.0-35.0 [facility] [id number] [address] [place] [address] 48709 Red Cell Distribu tion Width September 30, 2024 10:30am September 30, 2024 11:36am 17.2 % Above high normal 11.9-15.3 [facility] [id number] [address] [place] [address] 50574 Red Cell Distribu tion Width October 04, 2024 10:59am October 04, 2024 1:12pm 17.0 % Above high normal 11.9-15.3 [facility] [id number] [address] [place] [address] 66533 Platelet Count September 30, 2024 10:30am September 30, 2024 11:36am 1095 10*3/uL Above upper panic limits 150-450 Critical valueresul t calledat 1136 on 09/30/24 [facility] [id number] [address] [place] [address] 41693 Platelet Count October 04, 2024 10:59am October 04, 2024 1:17pm 1082 10*3/uL Above upper panic limits 150-450 Unable to reach provider for critical result. manager heart physician unable to take result. Results faxed. Faxed Results to [phone] at 1316 on 10/04/24 [facility] [id number] [address] [facility] 9[address] Mean Platelet Volume September 30, 2024 10:30am September 30, 2024 11:36am 7.0 fL 6.3-10.7 [facility] [id number] [address] [facility] 15930 Mean Platelet Volume October 04, 2024 10:59am October 04, 2024 1:12pm 6.9 fL 6.3-10.7 [facility] [id number] [address] [facility] 54013 Neutroph ils (%) (Auto) September 30, 2024 10:30am September 30, 2024 12:13pm 75.2 % . [facility] [id number] [address] [facility] 61275 Neutroph ils (%) (Auto) October 04, 2024 10:59am October 04, 2024 1:12pm 62.7 % . [facility] [id number] [address] [facility] 8[address]01 Lymphocy mike (%) (Auto) September 30, 2024 10:30am September 30, 2024 12:13pm 17.1 % . [facility] [id number] [address] [facility] 607[address] Lymphocy mike (%) (Auto) October 04, 2024 10:59am October 04, 2024 1:12pm 27.5 % . [facility] [id number] [address] [facility] 29546 Monocyte s (%) (Auto) September 30, 2024 10:30am September 30, 2024 12:13pm 5.8 % . [facility] [id number] [address] [facility] 38698 Monocyte s (%) (Auto) October 04, 2024 10:59am October 04, 2024 1:12pm 4.8 % . [facility] [id number] [address] [facility] 77997 Eosinoph ils (%) (Auto) September 30, 2024 10:30am September 30, 2024 12:13pm 1.1 % . [facility] [id number] [address] [facility] 48960 Eosinoph ils (%) (Auto) October 04, 2024 10:59am October 04, 2024 1:12pm 3.7 % . [facility] [id number] [address] [facility] 18579 Basophil s (%) (Auto) September 30, 2024 10:30am September 30, 2024 12:13pm 0.8 % . [facility] [id number] [address] [facility] 36877 Basophil s (%) (Auto) October 04, 2024 10:59am October 04, 2024 1:12pm 1.3 % . [facility] [id number] [address] [facility] 62988 Nucleate d RBC Relative Count (auto) September 30, 2024 10:30am September 30, 2024 12:13pm 0.1 /100{WBC} 0-0.5 [facility] [id number] [address] [facility] 84285 Nucleate d RBC Relative Count (auto) October 04, 2024 10:59am October 04, 2024 1:12pm 0.0 /100{WBC} 0-0.5 [facility] [id number] [address] [facility] 68000 Neutroph ils # (Auto) September 30, 2024 10:30am September 30, 2024 12:13pm 13.8 10*3/uL Above high normal 1.8-7.7 [facility] [id number] [address] [facility] 72710 Neutroph ils # (Auto) October 04, 2024 10:59am October 04, 2024 1:12pm 7.7 10*3/uL 1.8-7.7 [facility] [id number] [address] [facility] 38229 Lymphocy mike # (Auto) September 30, 2024 10:30am September 30, 2024 12:13pm 3.1 10*3/uL 1.00-4.8 [facility] [id number] [address] [facility] 57148 Lymphocy mike # (Auto) October 04, 2024 10:59am October 04, 2024 1:12pm 3.4 10*3/uL 1.00-4.8 [facility] [id number] [address] [facility] 53373 Monocyte s # (Auto) September 30, 2024 10:30am September 30, 2024 12:13pm 1.1 10*3/uL Above high normal 0.0-0.8 [facility] [id number] [address] [facility] 23198 Monocyte s # (Auto) October 04, 2024 10:59am October 04, 2024 1:12pm 0.6 10*3/uL 0.0-0.8 [facility] [id number] [address] [place] [address] 67677 Eosinoph ils # (Auto) September 30, 2024 10:30am September 30, 2024 12:13pm 0.2 10*3/uL 0.0-0.45 [facility] [id number] [address] [place] [address] 85465 Eosinoph ils # (Auto) October 04, 2024 10:59am October 04, 2024 1:12pm 0.5 10*3/uL Above high normal 0.0-0.45 [facility] [id number] [address] [facility] 04052 Basophil s # (Auto) September 30, 2024 10:30am September 30, 2024 12:13pm 0.1 10*3/uL 0.0-0.2 [facility] [id number] [address] [facility] 10878 Basophil s # (Auto) October 04, 2024 10:59am October 04, 2024 1:12pm 0.2 10*3/uL 0.0-0.2 [facility] [id number] [address] [place] [address] 80503 Red Blood Cell Morpholo gy September 30, 2024 10:30am September 30, 2024 12:13pm N/A [facility] [id number] [address] [place] [address] 33866 Red Blood Cell Morpholo gy October 04, 2024 10:59am October 04, 2024 1:17pm N/A [facility] [id number] [address] [facility] 68457 Anisocyt osis September 30, 2024 10:30am September 30, 2024 12:13pm Moderate [facility] [id number] [address] [facility] 50068 Anisocyt osis October 04, 2024 10:59am October 04, 2024 1:17pm Moderate [facility] [id number] [address] [facility] 53081 Platelet Estimate September 30, 2024 10:30am September 30, 2024 12:13pm Increased Normal [facility] [id number] [address] [facility] 19292 Platelet Estimate October 04, 2024 10:59am October 04, 2024 1:17pm Increased Normal [facility] [id number] [address] [facility] 57524 Platelet Morpholo gy Comment September 30, 2024 10:30am September 30, 2024 12:13pm Normal Normal [facility] [id number] [address] [facility] 92887 Platelet Morpholo gy Comment October 04, 2024 10:59am October 04, 2024 1:17pm Normal Normal [facility] [id number] [address] [facility] 11812 CBC Comment September 30, 2024 10:30am September 30, 2024 12:14pm See comment Thrombocyt osis is often reactive in nature. If the thrombocyt osis remains persistent and unexplaine d for greater than 3 months, recommend additional hematologi c work-up or hematology consultati on as clinically indicated. Slide referred to pathologis t for review [facility] [id number] [address] [facility] 12448 Slides for Patholog ist Review September 30, 2024 10:30am September 30, 2024 12:16pm Ordered path review [facility] [id number] [address] [facility] 63921 Glucose Level September 30, 2024 10:30am September 30, 2024 12:15pm 97 mg/dL 70-100 ADA recommende d reference rangeRando m Glucose Reference Range is dependent on time and content of last meal. Glucose of more than 200 mg/dL in a nonstresse d, ambulatory subject supports the diagnosis of Diabetes Mellitus. [facility] [id number] [address] [facility] 92327 Glucose Level October 04, 2024 10:59am October 04, 2024 11:57am 102 mg/dL Above high normal 70-100 ADA recommende d reference rangeRando m Glucose Reference Range is dependent on time and content of last meal. Glucose of more than 200 mg/dL in a nonstresse d, ambulatory subject supports the diagnosis of Diabetes Mellitus. [facility] [id number] [address] [facility] 18832 Blood Urea Nitrogen September 30, 2024 10:30am September 30, 2024 12:15pm 18 mg/dL 09-12 [facility] [id number] [address] [facility] 74696 Blood Urea Nitrogen October 04, 2024 10:59am October 04, 2024 11:57am 18 mg/dL 09-12 [facility] [id number] [address] [facility] 23794 Creatini ne September 30, 2024 10:30am September 30, 2024 12:15pm 0.98 mg/dL 0.60-1.20 [facility] [id number] [address] [facility] 19045 Creatini ne October 04, 2024 10:59am October 04, 2024 11:57am 0.79 mg/dL 0.60-1.20 [facility] [id number] [address] [facility] 32327 Estimate d GFR (CKD-EPI ) September 30, 2024 10:30am September 30, 2024 12:15pm > 60.0 mL/Min [facility] [id number] [address] [facility] 63944 Estimate d GFR (CKD-EPI ) October 04, 2024 10:59am October 04, 2024 11:57am > 60.0 mL/Min [facility] [id number] [address] [facility] 67336 Sodium Level September 30, 2024 10:30am September 30, 2024 12:15pm 137 mmol/L 136-145 [facility] [id number] [address] [facility] 68730 Sodium Level October 04, 2024 10:59am October 04, 2024 11:57am 138 mmol/L 136-145 [facility] [id number] [address] [facility] 89442 Potassiu m Level September 30, 2024 10:30am September 30, 2024 12:15pm 5.1 mmol/L 3.5-5.1 [facility] [id number] [address] [facility] 70452 Potassiu m Level October 04, 2024 10:59am October 04, 2024 11:57am 5.0 mmol/L 3.5-5.1 [facility] [id number] [address] [facility] 19508 Chloride Level September 30, 2024 10:30am September 30, 2024 12:15pm 100 mmol/L 98-107 [facility] [id number] [address] [facility] 92696 Chloride Level October 04, 2024 10:59am October 04, 2024 11:57am 101 mmol/L 98-107 [facility] [id number] [address] [facility] 87874 Carbon Dioxide Level September 30, 2024 10:30am September 30, 2024 12:15pm 27.3 mmol/L 21.0-31.0 [facility] [id number] [address] [facility] 45457 Carbon Dioxide Level October 04, 2024 10:59am October 04, 2024 11:57am 29.4 mmol/L 21.0-31.0 [facility] [id number] [address] [facility] 27677 Anion Gap September 30, 2024 10:30am September 30, 2024 12:15pm 14.8 mEq/L 6.0-15.0 [facility] [id number] [address] [facility] 25968 Anion Gap October 04, 2024 10:59am October 04, 2024 11:57am 12.6 mEq/L 6.0-15.0 [facility] [id number] [address] [facility] 90654 Calcium Level September 30, 2024 10:30am September 30, 2024 12:15pm 9.0 mg/dL 8.6-10.3 [facility] [id number] [address] [facility] 93277 Calcium Level October 04, 2024 10:59am October 04, 2024 11:57am 9.4 mg/dL 8.6-10.3 [facility] [id number] [address] [facility] 13807 Total Protein September 30, 2024 10:30am September 30, 2024 12:15pm 7.6 g/dL 6.4-8.9 [facility] [id number] [address] [facility] 83886 Albumin September 30, 2024 10:30am September 30, 2024 12:15pm 3.3 g/dL Below low normal 3.5-5.7 [facility] [id number] [address] [facility] 92297 Globulin September 30, 2024 10:30am September 30, 2024 12:15pm 4.3 g/dL [facility] [id number] [address] [place] [address] 06018 Albumin/ Globulin Ratio September 30, 2024 10:30am September 30, 2024 12:15pm 0.8 [facility] [id number] [address] [place] [address] 84664 Total Bilirubi n September 30, 2024 10:30am September 30, 2024 12:15pm 0.5 mg/dL 0.3-1.0 [facility] [id number] [address] [facility] 39972 Aspartat e Amino Transf (AST/SGO T) September 30, 2024 10:30am September 30, 2024 12:15pm 48 U/L Above high normal 13-39 [facility] [id number] [address] [facility] 64455 Alanine Aminotra nsferase (ALT/SGP T) September 30, 2024 10:30am September 30, 2024 12:15pm 94 U/L Above high normal 7-52 [facility] [id number] [address] [facility] 44526 Alkaline Phosphat ase September 30, 2024 10:30am September 30, 2024 12:15pm 523 U/L Above high normal 34-104 [facility] [id number] [address] [place] [address] 30915 Lactate Dehydrog enase September 30, 2024 10:29am September 30, 2024 12:13pm 253 U/L 140-271 [facility] [id number] [address] [place] [address] 09200 Iron Level September 30, 2024 10:29am September 30, 2024 12:13pm 13 ug/dL Below low normal 50-212 [facility] [id number] [address] [place] [address] 46583 Total Iron Binding Capacity September 30, 2024 10:29am September 30, 2024 12:13pm 259 ug/dL 255-450 [facility] [id number] [address] [place], [place] [address] Iron Saturati on September 30, 2024 10:29am September 30, 2024 12:13pm 5.0 % Below low normal 20-50 [facility] [id number] [address] [place] [address] 86302 Transfer rin September 30, 2024 10:29am September 30, 2024 12:13pm 185 mg/dL Below low normal 203-362 [facility] [id number] [address] [place] [address] 61111 Ferritin September 30, 2024 10:29am September 30, 2024 12:33pm 574.8 ng/mL Above high normal 11.0-306.8 [facility] [id number] [address] [place] [address] 24589 Pharmacy Creatini ne Clearanc e (Chem September 30, 2024 10:30am September 30, 2024 12:15pm N/A [facility] [id number] [address] [place] [address] 63890 Pharmacy Creatini ne Clearanc e (Chem October 04, 2024 10:59am October 04, 2024 11:57am N/A [facility] [id number] [address] [place] [address] 97456 JAK2 [id number] September 30, 2024 10:29am October 06, 2024 8:58am See comment See report. Scanned copy available in EMR. [facility] [id number] [address] [place] [address] 92053 Serum Immunofi xation September 30, 2024 10:29am October 02, 2024 4:09pm Comment . No monoclonal ity detected. [facility] 00 Immunogl obulin G September 30, 2024 10:29am October 02, 2024 4:09pm 1394 mg/dL [id number] [facility] 00 Immunogl obulin A September 30, 2024 10:29am October 02, 2024 4:09pm 425 mg/dL Above high normal 87-352 [facility] 00 Immunogl obulin M September 30, 2024 10:29am October 02, 2024 4:09pm 120 mg/dL [id number] Performed at: [address] [id number] Director: Jose Perea PhD, Phone: [phone] [facility] 00 Serum Total Protein September 30, 2024 10:29am October 01, 2024 4:09pm 7.5 g/dL 6.0-8.5 [facility] 00 Albumin (Send Out) September 30, 2024 10:29am October 01, 2024 4:09pm 2.4 g/dL Below low normal 2.9-4.4 [facility] 00 Alpha-1- Globulin s September 30, 2024 10:29am October 01, 2024 4:09pm 0.7 g/dL Above high normal 0.0-0.4 [facility] 00 Alpha-2- Globulin s September 30, 2024 10:29am October 01, 2024 4:09pm 1.6 g/dL Above high normal 0.4-1.0 [facility] 00 Beta Globulin s September 30, 2024 10:29am October 01, 2024 4:09pm 1.4 g/dL Above high normal 0.7-1.3 [facility] 00 Gamma Globulin s September 30, 2024 10:29am October 01, 2024 4:09pm 1.4 g/dL 0.4-1.8 [facility] 00 Protein Electrop horesis M-Nixon September 30, 2024 10:29am October 01, 2024 4:09pm Comment: g/dL Not Observed SPE shows asymmetric al beta. Suggest serum MADAY and free lightchain analysis for further evaluation . [facility] Globulin (PEP) September 30, 2024 10:29am October 01, 2024 4:09pm 5.1 g/dL Above high normal 2.2-3.9 [facility] 00 Albumin/ Globulin (PEP) September 30, 2024 10:29am October 01, 2024 4:09pm 0.5 Below low normal 0.7-1.7 [facility] 00 Protein Electrop horesis Note September 30, 2024 10:29am October 01, 2024 4:09pm Comment . Protein electropho resis scan will follow via computer,m ail, or machine feller delivery.P erformed at: [address] [id number] ab Director: Jose Perea PhD, Phone: [phone] [facility] 00 Urine Free [place] Light Chains September 30, 2024 10:30am October 02, 2024 6:36am 521.80 mg/L Above high normal 1.17-86.46 [facility] Urine Free Lambda Light Chains September 30, 2024 10:30am October 02, 2024 6:36am 131.24 mg/L Above high normal 0.27-15.21 [facility] Urine Free [place]/La mbda Ratio 24 Hr September 30, 2024 10:30am October 02, 2024 6:36am 3.98 1.83-14.26 Performed at: [address] [id number] ab Director: Dov López MD, Phone: [phone] [facility] 00 Microbiology Results Procedure Source Result Collection Date/Time Result Date/Time Result Comment Performing Site Urine Culture Urine Klebsiella pneumoniae September 06, 2024 6:00pm September 08, 2024 8:56am [facility] [id number] [address] [place], [place] [id number] Urine Klebsiella pneumoniae#2 September 06, 2024 6:00pm September 08, 2024 8:56am [facility] [id number] [address] [place] [id number] Urine Culture Urine, Clean-Voided Midstream 2 Days September 17, 2024 12:55am September 19, 2024 9:42am [facility] [id number] [address] [place] [address] Diagnostic Imaging Reports Author José Manuel Sim [facility] Authored October 04, 2024 12 :05pm Report Dictated Date/Time Dictated By Status Radiology Report October 04, 2024 12:05pm Jun Sim Jr DO completed [facility] [place] [address] [place] [address] XRay Report Signed Patient: Emma Mahan MR#: [id number] : 1995 Acct:[id number] Age/Sex: 28 / F ADM Date: 5 Loc: [place] Room: Type: [facility] Attending Dr: Jesse Ba MD Copies to: Jesse Ba MD~ Ordering Provider: Jesse Ba MD Date of Service: 10/04/24 XR/XR chest 2V*: N20.0, N12, THROMBOCYTOPENIA, ANEMIA, PLEURAL EFFUSION Chest 2 views CLINICAL HISTORY: Aspiration pneumonia. COMPARISON: None FINDINGS: Heart normal in size. Left lower lobe scarring. No consolidation pneumothorax pleural effusion or free air. XR/XR chest 2V* IMPRESSION: LEFT LOWER LOBE SCARRING. NO CONSOLIDATION TO SUGGEST PNEUMONIA. Impression dictated by: José Manuel Sim Jr., D.O. 10/04/2024 12:06 PM Dictation Location: [facility]18 Transcribed By: [facility] 10/04/24 1206 Dictated By: José Manuel Sim Jr, DO 10/04/24 120 Signed By: <Electronically signed by José Manuel Sim Jr, DO in OV> 10/04/24 1206 Vital Signs Vital Reading Result Reference Range Collection Date/Time Height 63 [in_i] October 10 10:59am Weight 80.73 kg October 10 10:59am Body Temperature 97.5 [degF] 97.6-99.0 September 10:59am Heart Rate 104 /min 60-100 October 10 10:59am Respiratory rate 16 /min 12-24 September 10:59am Oxygen saturation by Pulse oximetry 97 % 95-100 October 10, 2024 10 :59am BP Systolic 124 mm[Hg] 100-140 October 10 10:59am BP Diastolic 84 mm[Hg] 60-100 October 10 10:59am BMI (Body Mass Index) 31.5 kg/m2 October 10, 2024 10:59am Height 63 [in_i] October 10 10:59am Weight 80.73 kg October 10 10:59am Advance Directives Advance Directive Response Recorded Date/ Time Advance Directives No March 14, 2017 11:09am Insurance Providers Guarantor Emma Mahan Address [address] [place] [id number] Contact Info. Home Phone: Payer Policy Id Subscriber's Name Subscriber Id Effe ctive Date Expiration Date MMO [id number] Emma Mahan [id number] Nay COOPER/AAKASH [id number] Prateek Hyde [id number] [place] [employer] [id number] Emma Mahan [id number] [facility] [id number] Emma Mahan [id number] Encounters Encounter Location(s) Arrival/Admit Date Discharge/Depart Date Provider(s) Departed Emergency -Emergency Room September 06, 2024 4:20pm September 06, 2024 4:41pm Departed Referred -[facility] September 06, 2024 6:00pm September 06, 2024 6:01pm Mily Young MD Departed Referred -[facility] September 17, 2024 12:55am September 17, 2024 12:56am Margarita Marie DO Departed Referred -[facility] September 26, 2024 12:19pm September 26, 2024 12:20pm Soy Urena DO Departed Clinical -Lab [facility] September 30, 2024 10:23am September 30, 2024 10:24am Jesse Ba MD Departed Clinical -Lab [facility] October 04, 2024 10:47am October 04, 2024 10:48am Jesse Ba MD Departed Physician/Provi lolis Office Visit -[facility] October 10, 2024 10:59am October 10, 2024 12:27pm LEO Earl Registered Recurring -[facility] Acute October 10, 2024 11:00am Blane Severino , YESSI DO Plan of Treatment Author Tana Tellez [facility] Authored October 10, 2024 12 :18pm She is intolerant of oral ir on. She develop with constipation with this. SHe did just have severe constipation for 10 days. Vivian completed a test which was negative. consider hydrea if Dr. Ba would be willing to do procedure if platelets were controlled - Labs at 4 days and 8 days Future Tests Future scheduled test information is unavailable Pending Tests Test Name Ordered Date Scheduled Date CT abdomen pelvis w con October 10, 2024 12:01p m [address] chest w con October 10, 2024 12:01pm 1 Week s Comprehensive Metabolic Panel October 10, 2024 12:06pm 1 Weeks Future Visits Future appointment information is unavailable Referrals to Other Providers Reason for Referral Referral Start Date Provider Provider Contact Information Provider Address Abrahan Merrill MD Work Phone: [phone] [facility] [place] [address] Future Procedures Procedure Name Ordered Date Scheduled Date BCR-ABL Neogenomic October 10, 2024 12:06pm 1 W eeks Complete Blood Count Auto Diff October 10, 2024 12:06pm 1 Weeks Future Medications Future medication information is unavailable Patient Instructions Instruction Admit Date Ondansetron Promethazine October 10, 2024 10:59am
--- OUTSIDE RECORDS SUMMARY | 2024-10-23 14:49 | XMS_ITS | Encounter Summary ---
Author Organization [facility] Address [address] [place] [address] Care Team Providers Care Humanities Teacher Name Role Phone ConsueloAlexandrePenelope valladares Karina HUDSON-FINANCIAL ADMINISTRATION OFFICER Unavailable Blane Beavers DO Primary Care Provider [phone] Encounter Details Date Type Department Care Team (Late st Contact Info) Description 09/09/2024 Abstract [facility] [address] [facility] [address] [place] [address] Blane Beavers DO [address] [facility] [address] [place] [address] Social History Tobacco Use Types Packs/Day Years [...] How often do you attend chur or evangelical services? Never 02/09/2023 Do you [...] Recorded Patient Health Questionnaire-2 Score 1 12/17/2023 [facility] - [...] Master's degree (e.g., MA, MS, Jennifer, MEd, BIRTH CERTIFICATE CLERK, NILAM) 03/19/2023 Comments Unknown Sex and [...] Care Team (Late st Contact Info) Description 11/27/2024 3:00 PM EDT Office Visit [facility] 112 [facility] [address] [place] [address] Penelope Walker APRN-FINANCIAL ADMINISTRATION OFFICER 112 [facility] [address] [place] [address] documented as of this encounter Visit Diagnoses Not on filedocumented in this encounter Care Teams Humanities Teacher Relationship Specialty Start Date End Date Blane Beavers DO [address] [facility] 230 [place] [address] PCP - General Family Medicine 02/09/23 Penelope Walker APRN-FINANCIAL ADMINISTRATION OFFICER 112 [facility] 160 [place] [address] Nurse Practitioner Behavioral Health 07/28/22 documented as of this encounter
--- OUTSIDE RECORDS SUMMARY | 2024-10-23 14:49 | XMS_ITS | Encounter Summary ---
Author Organization [facility] Address [address] [place] [address] Care Team Providers Care Tree Faller Name Role Phone Penelope Walker SAILING INSTRUCTOR-FIELD SUPPORT SPECIALIST Unavailable Blane Beavers DO Primary Care Provider Penelope Walker SAILING INSTRUCTOR-FIELD SUPPORT SPECIALIST Unavailable Encounter Details Date Type Department Care Team (Late st Contact Info) Description 08/17/2023 Abstract [facility] [address] [facility] [address] [place] [phone] Blane Beavers DO [address] [facility] 230 [place], [place] [phone] Social History Tobacco Use Types Packs/Day Years [...] How often do you attend chur or denominational services? 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 on file Not on nidia e Not on file documented as of this encounter Plan of Treatment Upcoming Encounters Date Type Department Care Team (Late st Contact Info) Description 11/27/2024 3:00 PM EDT Office Visit [facility] 112 [facility] [address] [place] [address] Penelope Walker, SAILING INSTRUCTOR-FIELD SUPPORT SPECIALIST 112 [facility] 160 [place] [address] documented as of this encounter Visit Diagnoses Not on filedocumented in this encounter Care Teams Tree Faller Relationship Specialty Start Date End Date Blane Beavers DO [address] [facility] 230 [place] [address] PCP - General Family Medicine 02/09/23 Penelope Walker, SAILING INSTRUCTOR-FIELD SUPPORT SPECIALIST 112 [facility] 160 [place] [address] PCP - [place] [facility] 02/20/24 Penelope Walker, SAILING INSTRUCTOR-FIELD SUPPORT SPECIALIST [address] [address] Nurse Practitioner Behavioral Health 07/28/22 documented as of this encounter
--- OUTSIDE RECORDS SUMMARY | 2024-10-23 14:49 | XMS_ITS | Encounter Summary ---
Author Organization [facility] Address [address] [place] [address] Care Team Providers Care Writer Name Role Phone Penelope Walker COMPUTER VIDEO GAME DESIGNER-CAN TESTER Unavailable Blane Beavers DO Primary Care Provider Penelope Walker COMPUTER VIDEO GAME DESIGNER-CAN TESTER Unavailable Encounter Details Date Type Department Care Team (Late st Contact Info) Description 08/17/2023 Abstract [facility] [address] [facility] 230 [place] [phone] Blane Beavers DO [address] [facility] 230 [place], [place] [phone] Social History Tobacco Use Types Packs/Day Years [...] How often do you attend chur or uatsdin services? Never 02/09/2023 Do you belong to [...] Patient Health Questionnaire-2 Score 0 04/13/2023 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 on file Not on nidia e Not on file documented as of this encounter Plan of Treatment Upcoming Encounters Date Type Department Care Team (Late st Contact Info) Description 11/27/2024 3:00 PM EDT Office Visit [facility] 112 [facility] [address] [place] [address] Penelope Walker, COMPUTER VIDEO GAME DESIGNER-CAN TESTER 112 [facility] 160 [place] [address] documented as of this encounter Visit Diagnoses Not on filedocumented in this encounter Care Teams Writer Relationship Specialty Start Date End Date Blane Beavers DO [address] [facility] 230 [place] [address] PCP - General Family Medicine 02/09/23 Penelope Walker, COMPUTER VIDEO GAME DESIGNER-CAN TESTER 112 [facility] 160 [place] [address] PCP - [place] [employer] 02/20/24 Penelope Walker, COMPUTER VIDEO GAME DESIGNER-CAN TESTER [address] [address] Nurse Practitioner Behavioral Health 07/28/22 documented as of this encounter
--- OUTSIDE RECORDS SUMMARY | 2024-10-23 14:49 | XMS_ITS | Encounter Summary ---
Author Organization [facility] Address [id number] [place] [address] Care Team Providers Care Wick And Base Assembler Name Role Phone Unavailable Primary Care Provider Unavailabl e Encounter Details Date Type Department Care Team (Late st Contact Info) Description 05/20/2020 Orders Only Maternal- Medicine at [facility] [address] [place] [phone] External, Scanning Provider Social History Tobacco Use [...] more fetus (05/17/2020) Anatomical Region Laterality Modality OB-COURT DEPUTY Ultrasound Narrative 05/17/2020 See attached report us Scanning Provider External IMG US ORDERABLES Philippe richi Result - Final * Ultrasound limited 1 or more fetus (04/19/2020) Anatomical Region Laterality Modality OB-COURT DEPUTY Ultrasound Narrative 04/19/2020 See attached report us Scanning Provider External IMG US ORDERABLES Philippe richi Result - Final * Ultrasound limited 1 or more fetus (01/30/2020) Anatomical Region Laterality Modality OB-COURT DEPUTY Ultrasound Narrative 01/30/2020 See attached report us Scanning Provider External IMG US ORDERABLES Philippe richi Result - Final documented in this encounter Visit Diagnoses Not on filedocumented in this encounter
--- OUTSIDE RECORDS SUMMARY | 2024-10-23 14:49 | XMS_ITS | Encounter Summary ---
Author Organization [facility] Address [address] [place] [address] Care Team Providers Care Expressive Therapist Name Role Phone ConsueloAlexandrePenelope valladares Karina HUDSON-DIRECTOR LOAN Unavailable Blane Beavers DO Primary Care Provider [phone] Encounter Details Date Type Department Care Team (Late st Contact Info) Description 09/26/2024 [facility] [address] [facility] [address] [place] [address] Blane Beavers DO [address] [facility] Chu [address] [place] [address] Social History Tobacco Use Types Packs/Day Years [...] attend chur ch or caodaism services? Never 09/25/2024 Do you belong to [...] Recorded Patient Health Questionnaire-2 Score 1 12/17/2023 [facility] - Occupational Stress Questionnaire Answer [...] [facility] the [facility], were you homeless or living in a [facility] (including now)? No 09/25/2024 Education Answer Date Recorded What is the highest level of school you have completed or the highest degree you have received? Master's degree (e.g., MA, MS, Jennifer, MEd, RESTORATION SILVERSMITH, NILAM) 03/19/2023 Comments Unknown Sex and Gender [...] Office Visit [facility] [facility] 112 [facility] [address] [place] [address] Penelope Walker, GANG MOWER OPERATOR-DIRECTOR LOAN 112 [facility] [address] [place] [address] documented as of this encounter Visit Diagnoses Not on filedocumented in this encounter Care Teams Expressive Therapist Relationship Specialty Start Date End Date Blane Beavers DO [address] [facility] 230 [place] [address] PCP - General Family Medicine 02/09/23 Penelope Walker, GANG MOWER OPERATOR-DIRECTOR LOAN 112 [facility] [address] [place] [address] Nurse Practitioner Behavioral Health 07/28/22 documented as of this encounter
--- OUTSIDE RECORDS SUMMARY | 2024-10-23 14:49 | XMS_ITS | Clinical Summary ---
Author Organization [employer] [facility] tem Address [id number] [address] [place] [address] Care Team Providers Care Drier Name Role Phone Unavailable Primary Care Provider Unavailabl e Allergies Active Allergy Reactions Criticality Noted Date Comments Etonogestrel-Ethinyl Estradiol 05/20 Medications sertraline (ZOLOFT) 50 mg tablet Take 50 mg by mouth daily. Active ondansetron ODT (ZOFRAN-ODT) 8 mg disintegrating tablet Dissolve 8 mg on tongue every 8 (eight) hours as needed for nausea or vomiting. Active cariprazine (VRAYLAR) 3 mg capsule Take 1 capsule (3 mg total) by mouth in the morning. 5 12/11/19 25 Active ketorolac (TORADOL) 10 mg tablet Take 1 tablet (10 mg total) by mouth every 4 (four) hours as needed. 5 Active lamoTRIgine (LaMICtal) 150 mg tablet Take 1 tablet (150 mg total) by mouth in the morning. 5 Active CEPHalexin (KEFLEX) 500 mg capsule Take 1 capsule (500 mg total) by mouth in the morning and 1 capsule (500 mg total) at noon and 1 capsule (500 mg total) in the evening and 1 capsule (500 mg total) before bedtime. Do all this for 10 days. 40 capsule 5 10/12/19 25 HYDROcodone-acetam inophen (NORCO) 5-325 mg per tabletIndications: Flank pain Take 1 tablet by mouth every 6 (six) hours as needed for pain for up to 3 days. Max Daily Amount: 4 tablets 5 tablet 5 08/16/20 25 Active Problems Problem Noted Date Diagnosed Date Flank pain 10/01/2024 Encounters Date Type Department Care Team Description 10/01/2024 8:54 AM EDT - 10/01/2024 2:33 PM EDT Emergency [facility] - Emergency Department [address] [place] [address] Boaz Fraser DO Ford, Jeffrey S, MD Flank pain (Primary Dx) Discharge Disposition: Left Against Medical Advice or Discontinued Care 10/01/2024 Travel from Last 3 Months Family History Medical History Relation Name Comments [...] Employment Answer Date Recorded Employment Unknown 07/28/2018 Hunger Screening Answer Date Recorded Within the past 12 months we worried whether our food would run out before we got money to buy more. Never True 10/01/2024 Within the past 12 months th e food we bought just didn't last and we didn't have money to get more. Never True 10/01/2024 Purpose - Life Answer Date Recorded Purpose and direction in life Unknown Comments No Sex and Gender Information Value Date Recorded Sex Assigned at Not on file Legal Sex Female 12:11 PM EDT Gender Identity Not on file Sexual Orientation Not on file Last Filed Vital Signs Vital Sign Reading Time Taken Comments Blood Pressure 130/90 10/01/2024 2:28 PM EDT Pulse 96 10/01/2024 2:28 PM EDT Temperature 37.3 C (99.2 F) 10/01/2024 9:15 AM EDT Respiratory Rate 26 10/01/2024 2:28 PM EDT Oxygen Saturation 97% 10/01/2024 2:28 PM EDT Inhaled Oxygen Concentration - - Weight 65.2 kg (143 lb 12.8 oz) 05/25/2020 9:08 AM EDT Height 160 cm (5' 3 ) 05/25/2020 9:08 AM EDT Body Mass Index 25.47 05/25/2020 9:08 AM EDT Plan of Treatment Health Maintenance Due Date Last Done Comments Depression Screening 2007 Tobacco Screening 2007 Adult BMI Screening 12/18/2013 Pap Smear 01/29/2023 01/30/2020 COVID-19 Vaccine (2023-2 5 season) 2023 01/06/2021, 12/08/2020 Influenza Vaccine 10/20/2024 03/06/2023, , 11/25/2019, Additional history exists DTaP,Tdap and Td Vaccines (9 - Td or Tdap) 01/24/2029 01/24/2019, 10/09/2017, 10/23/2014, Additional history exists Medical Devices Not on file Procedures Procedure Name Priority Date/Time Associated Diagnosis Comments POCT NURSING URINE MACROSCOPIC UA Routine 10/01/2024 11:26 AM EDT ER EXTRA URINE MARBLE STAT 10/01/2024 11:12 AM EDT ER EXTRA URINE CULTURE STAT 10/01/2024 11:12 AM EDT ER EXTRA URINE STAT 10/01/2024 11:12 AM EDT BLOOD CULTURE STAT 10/01/2024 10:34 AM EDT BLOOD CULTURE STAT 10/01/2024 10:[address] ABDOMEN AND PELVIS W CONT STAT 10/01/2024 9:55 AM EDT MUNOZ TOP ON ICE STAT 10/01/2024 9:27 AM EDT LAVENDER TOP STAT 10/01/2024 9:27 AM EDT PST TOP STAT 10/01/2024 9:27 AM EDT BLUE TOP STAT 10/01/2024 9:27 AM EDT LACTATE W/ REFLEX Add-On 10/01/2024 9:2 7 AM EDT MAGNESIUM STAT Add-on 10/01/2024 9:27 AM EDT COMPREHENSIVE METABOLIC PANEL STAT Add-on 10/01/2024 9:27 AM EDT CBC WITH AUTO DIFFERENTIAL STAT Add-on 10/01/2024 9:27 AM EDT RAINBOW DRAW STAT 10/01/2024 9:27 AM EDT HIGH RISK HPV W/ALMA Routine 01/30/2020 from Last 3 Months or Most Recently Relevant to Health Maintenance Results * (ABNORMAL) POCT Nursing Urine Macroscopic UA (10/01/2024 11:26 AM EDT) POC Urine Specific [place] 1.010 1.010, 1.015, 1.020, 1.025 10/01/2024 11:18 AM EDT [facility] POC Urine Leukocyte Esterase Small(A) Negative 10/01/2024 11:18 AM EDT [facility] POC Urine Nitrite Negative Negative 10/01/2024 11:18 AM T [facility] POC Urine pH 6.5 5.0, 6.0, 6.5, 7.0, 7.5, 8.0, 8.5, 5.5 10/01/2024 11:18 AM EDT [facility] POC Urine Protein Trace(A) Negative 10/01/2024 11:18 AM EDT [facility] POC Urine Glucose Negative Negative 10/01/2024 11:18 AM EDT [facility] POC Urine Ketones Negative Negative 10/01/2024 11:18 AM EDT [facility] POC Urine Urobilinogen 0.2 E.U./dL 10/01/2024 11:18 AM EDT [facility] POC Urine Bilirubin Negative Negative 10/01/2024 11:18 AM EDT [facility] POC Urine Blood/HGB Small(A) Negative 10/01/2024 11:18 AM EDT [facility] Urine 10/01/2024 11:2 6 AM EDT 10/01/2024 11:18 AM EDT us Boaz Fraser DO POINT OF CARE TEST ORDERABLE S Final Result [facility] [address] [place] [address], [place] * Extra Urine [place] (10/01/2024 11:12 AM EDT) Extra Tube Auto Resulted 10/01/2024 1:01 PM EDT [facility] Urine Urine specimen collection, clean catch / Unknown 10/01/2024 11:12 AM EDT 10/01/2024 11:59 AM EDT Boaz Fraser DO URINE ORDERABLES Final Resul t Performing Organization Address City/[facility]/ZIP Co de Phone Number [facility] [address] [place] [address], [place] [phone] * Extra Urine Culture (10/01/2024 11:12 AM EDT) Extra Tube Auto Resulted 10/01/2024 1:01 PM EDT [facility] Urine Urine specimen collection, clean catch / Unknown 10/01/2024 11:12 AM EDT 10/01/2024 11:59 AM EDT Boaz Fraser DO URINE ORDERABLES Final Resul t Performing Organization Address City/[facility]/ZIP Co de Phone Number [facility] [address] [place] [address], [place] [phone] * Extra Urine (10/01/2024 11:12 AM EDT) Extra Tube Auto Resulted 10/01/2024 1:01 PM EDT [facility] Urine Urine specimen collection, clean catch / Unknown 10/01/2024 11:12 AM EDT 10/01/2024 11:59 AM EDT Boaz Fraser DO URINE ORDERABLES Final Resul t [facility] [address] [place] [address], * Blood culture #2 (10/01/2024 10:34 AM EDT) Only the most recent of2 resultswithin the time period is included. CULTURE RESULTS NO GROWTH 5 DAYS 10/06/2024 12:02 PM EDT [facility] Blood Venous blood / Unknown Venipuncture / Unknown 10/01/2024 10:34 AM EDT 10/01/2024 11:21 AM EDT Kam Martinez MD MICROBIOLOGY - GENERAL ORDERABLES Final Result Performing Organization Address City/[facility]/ZIP Co de Phone Number [facility] [address] [place] [address], * CT abdomen and pelvis with contrast (10/01/2024 9:55 AM EDT) Anatomical Region Laterality Modality Body, Abdomen, Body Covera N/A Compu richi Tomography 10/01/2024 10:0 6 AM EDT Narrative 10/01/2024 10:10 AM EDT HISTORY: Pain. Recent kidney stone with surgery. Evaluate for hematoma. COMPARISON: None TECHNIQUE: Routine CT abdomen and pelvis obtained after the uncomplicated intravenous administration of contrast material.Multiplanar reformats obtained from the axial data. Automated exposure control was utilized. CONTRAST: Omnipaque FINDINGS/IMPRESSION: Liver and gallbladder: Normal. Main portal vein is patent Spleen: Normal. Pancreas: Normal. Adrenal glands: Normal. Kidneys: Double-J ureter stent has been placed on the right. Multiple stones are appreciated in the distended right renal pelvis. There is also calcification near the right UPJ junction. The course of the stent appears appropriate. At least mild hydronephrosis does persist. The lobulated mixed attenuation but primarily cystic right perinephric process is appreciated may represent degraded hematoma. This does have mass effect on the kidney and multiple structures including the IVC. Continued follow-up by urology is required. No evidence of active extravasation at this time. Subcentimeter nonobstructing left renal stones are noted. Left retroaortic renal vein course. Bowel: No bowel obstruction. Assessment the bowel is hampered in the setting, no contrast and retained stool. There is no concerning gastric distention. No free air. No free fluid. Aorta: Normal in size Pelvis: Uterus is anteverted. Uterus and adnexa appear age-appropriate. No urinary bladder stone is seen Osseous structures: No acute osseous process All CT scans at this facility use dose modulation, iterative reconstruction, and/or weight based dosing when appropriate to reduce radiation dose to as low as reasonably achievable. Finalized by Jenise Walters MD on 10/01/2024 10:10 AM Procedure Note Jenise Walters MD - 10/01/2024 HISTORY: Pain. Recent kidney stone with surgery. Evaluate for hematoma. COMPARISON: None TECHNIQUE: Routine CT abdomen and pelvis obtained after the uncomplicatedintravenous administration of contrast material.Multiplanar reformatsobtained from the axial data. Automated exposure control was utilized. CONTRAST: Omnipaque FINDINGS/IMPRESSION: Liver and gallbladder: Normal. Main portal vein is patent Spleen: Normal. Pancreas: Normal. Adrenal glands: Normal. Kidneys: Double-J ureter stent has been placed on the right. Multiplestones are appreciated in the distended right renal pelvis. There is alsocalcification near the right UPJ junction. The course of the stent appearsappropriate. At least mild hydronephrosis does persist. The lobulated mixed attenuation but primarily cystic right perinephricprocess is appreciated may represent degraded hematoma. This does havemass effect on the kidney and multiple structures including the IVC.Continued follow-up by urology is required. No evidence of activeextravasation at this time. Subcentimeter nonobstructing left renal stones are noted. Leftretroaortic renal vein course. Bowel: No bowel obstruction. Assessment the bowel is hampered in thesetting, no contrast and retained stool. There is no concerning gastricdistention. No free air. No free fluid. Aorta: Normal in size Pelvis: Uterus is anteverted. Uterus and adnexa appear age-appropriate. Nourinary bladder stone is seen Osseous structures: No acute osseous process All CT scans at this facility use dose modulation, iterativereconstruction, and/or weight based dosing when appropriate to reduceradiation dose to as low as reasonably achievable. Finalized by Jenise Walters MD on 10/01/2024 10:10 AM Kam Martinez MD IMG CT ORDERABLES Final Result * Munoz Top On Ice (10/01/2024 9:27 AM EDT) Extra Tube Auto Resulted 10/01/2024 11:01 AM EDT [facility] Blood Venous blood / Unknown 10/01/2024 9:27 AM EDT 10/01/2024 10:14 AM EDT Boaz Fraser DO LAB BLOOD ORDERABLES Final R esult [facility] [address] [place] [address], * Lactate w/ Reflex (10/01/2024 9:27 AM EDT) LACTATE W/REFLEX 1.4 0.4 - 2.0 mmol/L 10/01/2024 10:33 AM EDT [facility] Blood Venous blood / Unknown 10/01/2024 9:27 AM EDT 10/01/2024 10:14 AM EDT Narrative [facility] - 10/01/2024 10:33 AM EDT Result did not trigger repeat Lactate, re-order if needed. us Kam Martinez MD LAB BLOOD ORDERABLES Fi nal Result [facility] [address] [place] [address], * (ABNORMAL) CBC auto differential (10/01/2024 9:27 AM EDT) WBC 19.3(H) 4 - 11 x10E9/L 10/01/2024 10:36 AM EDT [facility] RBC Count 3.94 3.8 - 5.2 X10E12/L 10/01/2024 10:36 AM EDT [facility] Hemoglobin 10.2(L) 11.7 - 15.5 g/dL 10/01/2024 10:36 AM EDT [facility] Hematocrit 31.0(L) 35 - 47 % 10/01/2024 10:36 AM EDT [facility] MCV 79(L) 80 - 100 fL 10/01/2024 10:36 AM EDT [facility] MCH 25.9(L) 27 - 34 pg 10/01/2024 10:36 AM EDT [facility] MCHC 33.0 32 - 36 g/dL 10/01/2024 10:36 AM EDT [facility] RDW 16.6(H) 11.5 - 15 % 10/01/2024 10:36 AM EDT [facility] Platelet Count 1,005(HH) 150 - 450 X10E9/L 10/01/2024 10:36 AM EDT [facility] MPV 7.1 7 - 12 fL 10/01/2024 10:36 AM EDT [facility] Neutrophils % 83 % 10/01/2024 10:36 AM EDT [facility] Comment:This is an appended report. These results have been appended to a previously preliminary verified report. Lymphocytes % 14 % 10/01/2024 10:36 AM EDT [facility] Comment:This is an appended report. These results have been appended to a previously preliminary verified report. Monocytes % 3 % 10/01/2024 10:36 AM EDT [facility] Comment:This is an appended report. These results have been appended to a previously preliminary verified report. Neutrophils Absolute (M) 16.0(H) 1.5 - 6.6 10*3/uL 10/01/2024 10:36 AM EDT [facility] Comment:This is an appended report. These results have been appended to a previously preliminary verified report. Lymphocytes Absolute 2.7 1.0 - 3.5 10*3/uL 10/01/2024 10:36 AM EDT [facility] Comment:This is an appended report. These results have been appended to a previously preliminary verified report. Monocytes Absolute 0.6 0.0 - 0.9 10*3/uL 10/01/2024 10:36 AM EDT [facility] Comment:This is an appended report. These results have been appended to a previously preliminary verified report. Rouleaux 1+ 10/01/2024 10:36 AM EDT [facility] Comment:This is an appended report. These results have been appended to a previously preliminary verified report. Differential Type MANUAL DIFFERENTIAL 10/01/2024 10:36 AM EDT [facility] Comment:This is an appended report. These results have been appended to a previously preliminary verified report. Blood Venous blood / Unknown 10/01/2024 9:27 AM EDT 10/01/2024 9:38 AM EDT us Boaz Fraser DO LAB BLOOD ORDERABLES Final R esult [facility] [address] [place] [address], * Lavender Top (10/01/2024 9:27 AM EDT) Extra Tube Auto Resulted 10/01/2024 11:01 AM EDT [facility] Blood Venous blood / Unknown 10/01/2024 9:27 AM EDT 10/01/2024 9:38 AM EDT [facility] LAB BLOOD ORDERABLES Final R esult [facility] [address] [place] [address], [place] [phone] * PST TOP (10/01/2024 9:27 AM EDT) Extra Tube Auto Resulted 10/01/2024 11:01 AM EDT [facility] Blood Venous blood / Unknown 10/01/2024 9:27 AM EDT 10/01/2024 9:38 AM EDT Boaz Fraser DO LAB BLOOD ORDERABLES Final R esult [facility] [address] [place] [address], * Light Blue Top (10/01/2024 9:27 AM EDT) Extra Tube Auto Resulted 10/01/2024 11:01 AM EDT [facility] Blood Venous blood / Unknown 10/01/2024 9:27 AM EDT 10/01/2024 9:38 AM EDT Boaz YOOWALK LAB BLOOD ORDERABLES Final R esult [facility] [address] [place] [address], [place] [phone] * Magnesium (10/01/2024 9:27 AM EDT) MAGNESIUM 2.3 1.8 - 2.6 mg/dL 10/01/2024 10:15 AM EDT [facility] Blood Venous blood / Unknown 10/01/2024 9:27 AM EDT 10/01/2024 9:38 AM EDT [facility] LAB BLOOD ORDERABLES Final R esult [facility] [address] [place] [address], * (ABNORMAL) Comprehensive metabolic panel (10/01/2024 9:27 AM EDT) SODIUM 135 134 - 146 mmol/L 10/01/2024 10:15 AM EDT [facility] POTASSIUM 4.3 3.5 - 5.0 mmol/L 10/01/2024 10:15 AM EDT [facility] CHLORIDE 97(L) 98 - 109 mmol/L 10/01/2024 10:15 AM EDT [facility] CARBON DIOXIDE 26 22 - 32 mmol/L 10/01/2024 10:15 AM EDT [facility] ANION GAP 12 5 - 15 mmol/L 10/01/2024 10:15 AM EDT [facility] BLOOD UREA NITROGEN 16 5 - 23 mg/dL 10/01/2024 10:15 AM EDT [facility] CREATININE 1.06(H) 0.40 - 1.00 mg/dL 10/01/2024 10:15 AM EDT [facility] Comment:METHOD TRACEABLE TO IDMO STANDARD GLUCOSE 108(H) 65 - 99 mg/dL 10/01/2024 10:15 AM EDT [facility] CALCIUM 9.3 8.5 - 10.5 mg/dL 10/01/2024 10:15 AM EDT [facility] TOTAL PROTEIN 8.2(H) 6.0 - 8.0 g/dL 10/01/2024 10:15 AM EDT [facility] ALBUMIN 3.4 3.2 - 5.3 g/dL 10/01/2024 10:15 AM EDT [facility] ALKALINE PHOSPHATASE 488(H) 39 - 130 U/L 10/01/2024 10:15 AM EDT [facility] AST 33 <=41 U/L 10/01/2024 10:15 AM EDT [facility] ALT 84(H) <=31 U/L 10/01/2024 10:15 AM EDT [facility] BILIRUBIN,TOTAL 0.6 0.3 - 1.2 mg/dL 10/01/2024 10:15 AM EDT [facility] EGFR Non-Race Dependent 73 >=60 ml/min/1.7 3sq.m 10/01/2024 10:15 AM EDT [facility] Comment: Reported eGFR is based on the CKD-EPI 2020 equation that does not use a race coefficient. Blood Venous blood / Unknown 10/01/2024 9:27 AM EDT 10/01/2024 9:38 AM EDT Boaz Fraser DO LAB BLOOD ORDERABLES Final R esult [facility] [address] [place] [address], * High risk HPV w/alma (01/30/2020) Other High Risk Hpv See attached report MANUALLY TRANSCRIBED RESULTS Comment:See attached report us Not In System Ref Prov LAB BLOOD ORDERABLES Edit ed Result - Final Performing Organization Address City/[facility]/ZIP Co de Phone Number MANUALLY TRANSCRIBED RESULTS from Last 3 Months or Most Recently Relevant to Health Maintenance Insurance [employer] Advance Directives * Full Code (Latest Code Status on File) Date Activated Date Inactivated Comments 09/07/2017 8:59 PM 09/07/2017 11:24 PM
--- OUTSIDE RECORDS SUMMARY | 2024-10-23 14:49 | XMS_ITS | Encounter Summary ---
Author Organization [facility] tem Address [id number] [address] [place] [address] Care Team Providers Care Billet Grinder Name Role Phone Unavailable Primary Care Provider Unavailabl e Encounter Details Date Type Department Care Team (Late st Contact Info) Description 05/20/2020 Telephone Maternal- Medicine at [facility] [address] [place] [id number] Charley Reyes LPN Social History Tobacco Use [...]
--- OUTSIDE RECORDS SUMMARY | 2024-10-23 14:49 | XMS_ITS | Encounter Summary ---
Author Organization [facility] Address [address] [place] [address] Care Team Providers Care Survey Supervisor Name Role Phone Penelope Walker COCONUT COOKER-INGOT BUGGY OPERATOR Unavailable Blane Beavers DO Primary Care Provider [phone] Penelope Walker [employer]INGOT BUGGY OPERATOR Unavailable Encounter Details Date Type Department Care Team (Late st Contact Info) Description 08/17/2023 [facility] [address] [facility] [address] [place] [id number] Blane Beavers DO [address] [facility] [address] [place], [place] [id number] Social History Tobacco Use Types Packs/Day Years [...] How often do you attend chur or taoist services? Never 02/09/2023 Do you belong to any clubs o r organizations such as orthodoxy groups, unions, fraternal or athletic groups, or [...] in a mcfp (including now)? No 02/09/2023 Education Answer Date Recorded What is the highest level of school you have completed or the highest degree you have received? 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 [address] [place] [address] documented as of this encounter Visit Diagnoses Not on filedocumented in this encounter Care Teams Survey Supervisor Relationship Specialty Start Date End Date Blane Beavers DO [address] [facility] [address] [place] [address] PCP - General Family Medicine 02/09/23 Penelope Walker, [employer]INGOT BUGGY OPERATOR [address] [place] [facility] [address] [place] [address] PCP - [place] [employer] 02/20/24 Penelope Walker, [employer]INGOT BUGGY OPERATOR [address] [address] Nurse Practitioner Behavioral Health 07/28/22 documented as of this encounter
--- OUTSIDE RECORDS SUMMARY | 2024-10-23 14:49 | XMS_ITS | Clinical Summary ---
Author Organization [facility] Address [address] [place] [address] Care Team Providers Care Trading Manager Name Role Phone SuryPrabhaPenelope Saldana APRN-FIRST OFFICER AND FLIGHT INSTRUCTOR Unavailable Blane Beavers DO Primary Care Provider [...] Daily 90 capsule 5 12/11/19 25 Active docusate sodium (Colace) 100 MG capsule [...] hours if needed for cramping 5 Active amoxicillin-cl avulanate (Augmentin) 500-125 MG tablet Take 500 mg by mouth in the morning and 500 mg before bedtime. 5 09/30/19 25 Active Problems Problem Noted Date Diagnosed [...] Encounters Date Type Department Care Team Description 10/17/2024 External Result Encounter [facility] External Department Unsolicited Blane Severino, DO 10/10/2024 Abstract [facility] [address] [place] [address] Blane Beavers, 09/30/2024 External Result Encounter [facility] External Department Unsolicited Blane Severino, DO 09/30/2024 External Result Encounter [facility] External Department Unsolicited Blane Severino, DO 09/30/2024 External Result Encounter [facility] External Department Unsolicited Blane Severino, DO 09/30/2024 External Result Encounter [facility] External Department Unsolicited Blane Severino, DO 09/30/2024 External Result Encounter [facility] External Department Unsolicited Blane Severino, DO 09/30/2024 External Result Encounter [facility] External Department Unsolicited Blane Severino, DO 09/30/2024 External Result Encounter [facility] External Department Unsolicited Blane Severino, DO 09/26/2024 Abstract [facility] [address] [place] [address] Blane Beavers, DO 09/26/2024 Abstract [facility] [address] [place] [address] Blane Beavers, DO 09/26/2024 Patient Outreach [facility] [address] [place] [address] Beth Jha, GEOFF 09/25/2024 Travel 09/23/2024 Abstract [facility] [address] [place] [address] Blane Beavers, DO 09/23/2024 Abstract [facility] [address] [place] [address] Blane Beavers, DO 09/22/2024 Abstract [facility] [address] [place] [address] Blane Beavers, DO 09/22/2024 Abstract [facility] [address] [place] [address] Blane Beavers, DO 09/22/2024 Abstract [facility] [address] [place] [address] Blane Beavers, DO 09/22/2024 Abstract [facility] [address] [place] [address] Blane Beavers, DO 09/19/2024 Abstract [facility] [place] [facility] [address] [place] [address] [place], Blane L, DO 09/19/2024 Abstract [facility] [place] [facility] [address] [place] [phone] [place], Blane L, DO 09/18/2024 Abstract [facility] [address] [place] [address] [place], Blane L, DO 09/18/2024 Abstract [facility] [address] [place] [phone] [place], Blane L, DO 09/17/2024 Abstract [facility] [address] [place] [address] [place], Blane L, DO 09/17/2024 Abstract [facility] [place] [facility] [address] [place] [address] [place], Blane L, DO 09/17/2024 Abstract [facility] [place] [facility] [address] [place] [phone] [place], Blane L, DO 09/17/2024 Abstract [facility] [address] [place] [address] [place], Blane L, DO 09/17/2024 Abstract [facility] [address] [place] [address] [place], Blane L, DO 09/11/2024 Refill [facility] [address] [place] [address] Penelope Walker, ART LIBRARIAN-FIRST OFFICER AND FLIGHT INSTRUCTOR Bipolar 2 disorder (HCC) 09/09/2024 Abstract [facility] [address] [place] [address] [place], Blane L, DO 09/09/2024 Abstract [facility] [address] [place] [address] Blane Beavers DO 09/09/2024 Abstract [facility] [address] [place] [address] Blane Beavers, from Last 3 Months Immunizations Immunization Administration [...] you attend chur or mosque services? Never 09/25/2024 Do you belong to [...] Recorded Patient Health Questionnaire-2 Score 1 12/17/2023 [facility] - Occupational Stress Questionnaire Answer Date Recorded [...] in a detention (including now)? No 02/09/2023 Housing Stability Vital Sign Answer Bhavin e Recorded In the last 12 months, was t here a time when you were not able to pay the mortgage or rent on time? No 09/25/2024 In the past 12 months, how m any times have you moved where you were living? 1 09/25/2024 At any time in the past 12 m [facility], were you homeless or living in a detention (including now)? No 09/25/2024 Education Answer Date Recorded What is the highest level of school you have completed or the highest degree you have received? Master's degree (e.g., MA, MS, Jennifer, MEd, BUFFER COPPER, NILAM) 03/19/2023 Comments Unknown Sex and Gender [...] Office Visit [facility] 112 [facility] 160 [place] [address] Penelope Walker, ART LIBRARIAN-FIRST OFFICER AND FLIGHT INSTRUCTOR 112 [facility] 160 [place] [address] Health Maintenance Due Date Last Done Comments Influenza Vaccine (#1) 2024 4, 12/22/2022, 12/22/2022, Additional history exists Procedures Procedure Name Priority Date/Time Associated Diagnosis Comments CBC WITH AUTO DIFFERENTIAL Routine 10/17/2024 2:10 PM EDT FR KAPPA/LAMBDA LTC URINE Routine 09/30/2024 10:30 AM EDT PATHOLOGIST SLIDE REVIEW ([facility]) Routine 09/30/2024 10:30 AM EDT COMPREHENSIVE METABOLIC PANEL Routine 09/30/2024 10:30 AM EDT SCAN AND CBC Routine 09/30/2024 10:30 AM EDT JOSHUA 2 NEOGENOMIC Routine 09/30/2024 10:2 9 AM EDT IMMUNOFIXATION,SERUM ([facility]) Routine 09/30/2024 10:29 AM EDT PROTEIN ELECTROPHORESIS, SERUM Routine 09/30/2024 10:29 AM EDT FERRITIN Routine 09/30/2024 10:29 AM EDT IRON AND TOTAL IRON BINDING CAPACITY Routine 09/30/2024 10:29 AM EDT LD Routine 09/30/2024 10:29 AM EDT from Last 3 Months Results * (ABNORMAL) CBC auto differential (10/17/2024 2:10 PM EDT) WBC 9.4 3.8 - 11.6 [CFU]/mL 10/17/2024 2:31 PM EDT [facility] UNCORRECTED WHITE BLOOD COUNT 9.4 3.8 - 11.6 10*3/uL 10/17/2024 2:31 PM EDT [facility] RBC 4.32 3.60 - 5.00 10*6/uL 10/17/2024 2:31 PM EDT [facility] HEMOGLOBIN 11.6(L) 11.8 - 15.4 g/dL 10/17/2024 2:31 PM EDT [facility] HEMATOCRIT 34.5 34.0 - 46.4 % 10/17/2024 2:31 PM EDT [facility] MCV 79.8(L) 80 - 100 fL 10/17/2024 2:31 PM EDT [facility] MCH 26.9 24.7 - 34.3 pg 10/[facility] M[facility]C 33.7 32.0 - 35.0 g/dL 10/17/2024 2:31 PM EDT [facility] RED CELL DISTRIBUTION WIDTH, RDW 18.9(H) 11.9 - 15.3 % 10/17/2024 2:31 PM EDT [facility] PLATELET COUNT 509(H) 150 - 450 10*3/uL 10/17/2024 2:31 PM EDT [facility] MEAN PLATELET VOLUME, MPV 7.3 6.3 - 10.7 fL 10/17/2024 2:31 PM EDT [facility] NEUTROPHILS, % 54.0 . % 10/17/2024 2:31 PM EDT [facility] LYMPHOCYTES, % 34.2 . % 10/17/2024 2:31 PM EDT [facility] MONOCYTE/MACROPHA GE, % 6.4 . % 10/17/2024 2:31 PM EDT [facility] EOSINOPHILS, % 4.4 . % 10/17/2024 2:31 PM EDT [facility] BASOPHILS, % 1.0 . % 10/17/2024 2:31 PM EDT [facility] NRBC 0.0 0 - 0.5 /100{WBC} 10/17/2024 2:31 PM EDT [facility] NEUTROPHILS 5.1 1.8 - 7.7 10*3/uL 10/17/2024 2:31 PM EDT [facility] LYMPHOCYTES 3.2 1.00 - 4.8 10*3/uL 10/17/2024 2:31 PM EDT [facility] MONOCYTES 0.6 0.0 - 0.8 10*3/uL 10/17/2024 2:31 PM EDT [facility] EOSINOPHILS 0.4 0.0 - 0.45 10*3/uL 10/17/2024 2:31 PM EDT [facility] BASOPHILS 0.1 0.0 - 0.2 10*3/uL 10/17/2024 2:31 PM EDT [facility] Blood (Blood) 10/17/2024 2:1 0 PM EDT 10/17/2024 2:18 PM EDT Blane Tre Severino DO LAB BLOOD ORDERABLES Terese l Result Performing Organization Address City/[facility]/ZIP Co de Phone Number [facility] [address] [place] [address], [facility] [address] [place] [address] * FR KAPPA/LAMBDA LTC URINE (09/30/2024 10:30 AM EDT) FREE KAPPA LIGHT CHAINS, URINE 521.80 1.17 - 86.46 mg/L 10/02/2024 6:36 AM EDT [facility] FREE LAMBDA LT CHAINS, URINE 131.24 0.27 - 15.21 mg/L 10/02/2024 6:36 AM EDT [facility] KAPPA/LAMBDA RATIO 24 HR UR 3.98 1.83 - 14.26 10/02/2024 6:36 AM EDT [facility] Comment: Performed at: [facility] [address] [id number] Certified Nurse Midwife: Dov López MD, Phone: [phone] Urine Topography unknown / Unknown 09/30/2024 10:30 AM EDT 09/30/2024 10:30 AM EDT Blane Tre Severino DO LAB BLOOD ORDERABLES Terese l Result [facility] [address] [place] [address], * (ABNORMAL) SCAN AND CBC (09/30/2024 10:30 AM EDT) WBC 18.3(H) 3.8 - 11.6 [CFU]/mL 09/30/2024 11:34 AM EDT [facility] UNCORRECTED WHITE BLOOD COUNT 18.3(H) 3.8 - 11.6 10*3/uL 09/30/2024 11:34 AM EDT [facility] RBC 4.13 3.60 - 5.00 10*6/uL 09/30/2024 11:34 AM EDT [facility] HEMOGLOBIN 10.9(L) 11.8 - 15.4 g/dL 09/30/2024 11:34 AM EDT [facility] HEMATOCRIT 32.6(L) 34.0 - 46.4 % 09/30/2024 11:34 AM EDT [facility] MCV 79.1(L) 80 - 100 fL 09/30/2024 11:34 AM EDT [facility] MCH 26.4 24.7 - 34.3 pg 09/30/2024 11:34 AM EDT [facility] MCHC 33.4 32.0 - 35.0 g/dL 09/30/2024 11:34 AM EDT [facility] RED CELL DISTRIBUTION WIDTH, RDW 17.2(H) 11.9 - 15.3 % 09/30/2024 11:34 AM EDT [facility] PLATELET COUNT 1,095(HH) 150 - 450 10*3/uL 09/30/2024 11:36 AM EDT [facility] Comment: Critical value result called at 1136 on 09/30/24 MEAN PLATELET VOLUME, MPV 7.0 6.3 - 10.7 fL 09/30/2024 11:34 AM EDT [facility] NEUTROPHILS, % 75.2 . % 09/30/2024 12:13 PM EDT [facility] LYMPHOCYTES, % 17.1 . % 09/30/2024 12:13 PM EDT [facility] MONOCYTE/MACROPH AGE, % 5.8 . % 09/30/2024 12:13 PM EDT [facility] EOSINOPHILS, % 1.1 . % 09/30/2024 12:13 PM EDT [facility] BASOPHILS, % 0.8 . % 09/30/2024 12:13 PM EDT [facility] NRBC 0.1 0 - 0.5 /100{WBC} 09/30/2024 12:13 PM EDT [facility] NEUTROPHILS 13.8(H) 1.8 - 7.7 10*3/uL 09/30/2024 12:13 PM EDT [facility] LYMPHOCYTES 3.1 1.00 - 4.8 10*3/uL 09/30/2024 12:13 PM EDT [facility] MONOCYTES 1.1(H) 0.0 - 0.8 10*3/uL 09/30/2024 12:13 PM EDT [facility] EOSINOPHILS 0.2 0.0 - 0.45 10*3/uL 09/30/2024 12:13 PM EDT [facility] BASOPHILS 0.1 0.0 - 0.2 10*3/uL 09/30/2024 12:13 PM EDT [facility] ANISOCYTOSIS Moderate 09/30/2024 12:13 PM EDT [facility] PLATELET ESTIMATE Increased Normal 09/30/2024 12:13 PM EDT [facility] PLATELET MORPHOLOGY Normal Normal 09/30/2024 12:13 PM EDT [facility] ADDITIONAL COMMENTS 09/30/2024 12:14 PM EDT [facility] Comment: Thrombocytosis is often reactive in nature. If the thrombocytosis remains persistent and unexplained for greater than 3 months, recommend additional hematologic work-up or hematology consultation as clinically indicated. Slide referred to pathologist for review Blood (Blood) 09/30/2024 10: 30 AM EDT 09/30/2024 10:30 AM EDT Blane Severino DO LAB BLOOD ORDERABLES Terese l Result Performing Organization Address City/[facility]/ZIP Co de Phone Number [place] [phone], [place] [phone] * PATHOLOGIST SLIDE REVIEW ([facility] (09/30/2024 10:30 AM EDT) PATHOLOGIST SLIDE REVIEW Ordered Path Review 09/30/2024 12:16 PM EDT [facility] Other Topography unknown / Unknown 09/30/2024 10:30 AM EDT 09/30/2024 10:30 AM EDT Blane Severino DO LAB BLOOD ORDERABLES Terese l Result Performing Organization Address City/[facility]/ZIP Co de Phone Number [address] [address], [facility] [address] [place] [phone] * (ABNORMAL) Comprehensive metabolic panel (09/30/2024 10:30 AM EDT) Glucose 97 70 - 100 mg/dL 09/30/2024 12:15 PM EDT [facility] Comment: Random Glucose Reference Range is dependent on time and content of last meal. Glucose of more than 200 mg/dL in a nonstressed, ambulatory subject supports the diagnosis of Diabetes Mellitus. ADA recommended reference range BUN 18 7 - 25 mg/dL 09/30/2024 12:15 PM EDT [facility] CREATININE 0.98 0.60 - 1.20 mg/dL 09/30/2024 12:15 PM EDT [facility] ESTIMATED GFR >60.0 09/30/2024 12:15 PM EDT [facility] Sodium 137 136 - 145 mmol/L 09/30/2024 12:15 PM T [facility] Potassium, Bld 5.1 3.5 - 5.1 mmol/L 09/30/2024 12:15 PM EDT [facility] Chloride 100 98 - 107 mmol/L 09/30/2024 12:15 PM EDT [facility] Carbon Dioxide 27.3 21.0 - 31.0 mmol/L 09/30/2024 12:15 PM EDT [facility] Anion Gap 14.8 6.0 - 15.0 09/30/2024 12:15 PM EDT [facility] Calcium 9.0 8.6 - 10.3 mg/dL 09/30/2024 12:15 PM EDT [facility] TOTAL PROTEIN 7.6 6.4 - 8.9 g/dL 09/30/2024 12:15 PM T [facility] ALBUMIN LEVEL 3.3(L) 3.5 - 5.7 g/dL 09/30/2024 12:15 PM EDT [facility] GLOBULIN 4.3 g/dL 09/30/2024 12:15 PM EDT [facility] ALBUMIN/GLOBULIN RATIO 0.8 09/30/2024 12:15 PM EDT [facility] BILIRUBIN,TOTAL 0.5 0.3 - 1.0 mg/dL 09/30/2024 12:15 PM EDT [facility] ASPARTATE AMINO TRANSFERASE 48(H) 13 - 39 U/L 09/30/2024 12:15 PM EDT [facility] ALANINE AMINOTRANSFERASE 94(H) 7 - 52 U/L 09/30/2024 12:15 PM EDT [facility] ALKALINE PHOSPHATASE 523(H) 34 - 104 U/L 09/30/2024 12:15 PM EDT [facility] Other Topography unknown / Unknown 09/30/2024 10:30 AM EDT 09/30/2024 10:30 AM EDT Narrative [facility] - 09/30/2024 12:15 PM EDT NON FASTING Blane Severino DO LAB BLOOD ORDERABLES Terese l Result Performing Organization Address City/[facility] Co de Phone Number [facility] [address] [place] [address], [facility] [address] [place] [phone] * JOSHUA 2 NEOGENOMIC (09/30/2024 10:29 AM EDT) JOSHUA 2 NEOGENOMIC 10/06/2024 8:58 AM EDT [facility] Comment:See report. Scanned copy available in EMR. Other Topography unknown / Unknown 09/30/2024 10:29 AM EDT 09/30/2024 10:29 AM EDT Blane Severino DO [facility] Final Res ult [place] [phone], [facility] [address] [place] [address] * IMMUNOFIXATION,SERUM ([facility]) (09/30/2024 10:29 AM EDT) IMMUNOFIXATION, SERUM Comment . 10/02/2024 4:09 PM EDT [facility] Comment:No monoclonality det ected. IMMUNOGLOBULIN G 1,394 586 - 1,602 mg/dL 10/02/2024 4:09 PM EDT [facility] IMMUNOGLOBULIN A, SERUM 425 87 - 352 mg/dL 10/02/2024 4:09 PM EDT [facility] IMMUNOGLOBULIN M, SERUM 120 26 - 217 mg/dL 10/02/2024 4:09 PM EDT [facility] Comment: Performed at: - [address] [id number] Certified Nurse Midwife: Jose Perea PhD, Phone: [phone] Other Topography unknown / Unknown 09/30/2024 10:29 AM EDT 09/30/2024 10:29 AM EDT Blane Severino DO LAB BLOOD ORDERABLES Terese l Result Performing Organization Address [facility] [place] [address], * (ABNORMAL) Iron and TIBC (09/30/2024 10:29 AM EDT) IRON 13(L) 50 - 212 ug/dL 09/30/2024 12:13 PM EDT [facility] TOTAL IRON BINDING CAPACITY 259 255 - 450 ug/dL 09/30/2024 12:13 PM EDT [facility] % IRON SATURATION 5.0(L) 20 - 50 % 09/30/2024 12:13 PM EDT [facility] TRANSFERRIN 185(L) 203 - 362 mg/dL 09/30/2024 12:13 PM EDT [facility] Other Topography unknown / Unknown 09/30/2024 10:29 AM EDT 09/30/2024 10:29 AM EDT Narrative [facility] - 09/30/2024 12:33 PM EDT NOT FASTING Blane Severino DO LAB BLOOD ORDERABLES Terese l Result Performing Organization Address [facility] Co de Phone Number [address] [address], [facility] [address] [place], [place] [phone] * Protein electrophoresis, serum (09/30/2024 10:29 AM EDT) TOTAL PROTEIN, SERUM 7.5 6.0 - 8.5 g/dL 10/01/2024 4:09 PM EDT [facility] ALBUMIN, SERUM 2.4 2.9 - 4.4 g/dL 10/01/2024 4:09 PM EDT [facility] [id number] 0.7 0.0 - 0.4 g/dL 10/01/2024 4:09 PM EDT [facility] [id number] 1.6 0.4 - 1.0 g/dL 10/01/2024 4:09 PM EDT [facility] BETA GLOBULIN 1.4 0.7 - 1.3 g/dL 10/01/2024 4:09 PM EDT [facility] GAMMA GLOBULIN 1.4 0.4 - 1.8 g/dL 10/01/2024 4:09 PM EDT [facility] M-SPIKE Comment: Not Observed g/dL 10/01/2024 4:09 PM T [facility] Comment: SPE shows asymmetrical beta. Suggest serum MADAY and free light chain analysis for further evaluation. GLOBULIN, TOTAL 5.1 2.2 - 3.9 g/dL 10/01/2024 4:09 PM T [facility] A/G RATIO 0.5 0.7 - 1.7 10/01/2024 4:09 PM EDT [facility] SPE-NOTE Comment . 10/01/2024 4:09 PM T [facility] Comment: Protein electrophoresis scan will follow via computer, mail, or licensed psychologist delivery. Performed at: [address] [id number] Certified Nurse Midwife: Jose Perea PhD, Phone: [phone] Other Topography unknown / Unknown 09/30/2024 10:29 AM EDT 09/30/2024 10:29 AM EDT us Blane Severino DO LAB BLOOD ORDERABLES Terese trish Result [facility] [address] [place] [address], * Lactate dehydrogenase (09/30/2024 10:29 AM EDT) LDH LACTATE DEHYDROGENASE 253 140 - 271 U/L 09/30/2024 12:13 PM EDT [facility] Other Topography unknown / Unknown 09/30/2024 10:29 AM EDT 09/30/2024 10:29 AM EDT [facility] - 09/30/2024 12:33 PM EDT NOT FASTING Blane Severino DO LAB BLOOD ORDERABLES Terese l Result Performing Organization Address City/[facility]/ZIP Co de Phone Number [address] [address], [facility] [address] [place] [address] * (ABNORMAL) Ferritin (09/30/2024 10:29 AM EDT) FERRITIN 574.8(H) 11.0 - 306.8 ng/mL 09/30/2024 12:33 PM EDT [facility] Other Topography unknown / Unknown 09/30/2024 10:29 AM EDT 09/30/2024 10:29 AM EDT [facility] - 09/30/2024 12:33 PM EDT NOT FASTING Blane Severino DO LAB BLOOD ORDERABLES Terese l Result Performing Organization Address City/[facility] Co de Phone Number [address] [address], [facility] [address] [place] [address] from Last 3 Months Insurance [employer] Care Teams Trading Manager Relationship Specialty Start Date End Date Blane Beavers DO [address] [facility] [address] [place] [address] PCP - General Family Medicine 02/09/23 Penelope Walker, ART LIBRARIAN-FIRST OFFICER AND FLIGHT INSTRUCTOR 112 [facility] [address] [place] [address] Nurse Practitioner Behavioral Health 07/28/22
--- OUTSIDE RECORDS SUMMARY | 2024-10-23 14:49 | XMS_ITS | Encounter Summary ---
Author Organization [facility] Address [address] [place] [address] Care Team Providers Care Tester [employer]ed [employer] Boards Name Role Phone Penelope Walker ETIQUETTE COACH-DINING SERVICES DIRECTOR Unavailable Blane Beavers DO Primary Care Provider [phone] Penelope Walker ETIQUETTE COACH-DINING SERVICES DIRECTOR Unavailable Reason for Visit * Reason Comments Med Refill Encounter Details Date Type Department Care Team (Late st Contact Info) Description 07/15/2023 Refill [facility] [address] [facility] [address] [place] [phone] Penelope Walker, ETIQUETTE COACH-DINING SERVICES DIRECTOR [address] [facility] [address] [place] [address] Bipolar 2 disorder (HCC) Social History Tobacco [...] How often do you attend chur or judaism services? 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) Not on file Not on nidia e Not on file documented as of this encounter Plan of Treatment Upcoming Encounters Date Type Department Care Team (Late st Contact Info) Description 11/27/2024 3:00 PM EDT Office Visit [facility] [address] [facility] [address] [place] [address] Penelope Walker, ETIQUETTE COACH-DINING SERVICES DIRECTOR [address] [place] [address] documented as of this encounter Visit Diagnoses Diagnosis Bipolar 2 disorder (HCC) Other bipolar disorders documented in this encounter Care Teams Tester [employer]ed [employer] Boards Relationship Specialty Start Date End Date Blane Beavers DO [address] [facility] [address] [place] [address] PCP - General Family Medicine 02/09/23 Penelope Walker, ETIQUETTE COACH-DINING SERVICES DIRECTOR [address] [facility] [address] [place] [address] [facility] 02/20/24 Penelope Walker, ETIQUETTE COACH-DINING SERVICES DIRECTOR 112 [facility] [address] [place] [address] Nurse Practitioner Behavioral Health 07/28/22 documented as of this encounter
--- OUTSIDE RECORDS SUMMARY | 2024-10-23 14:49 | XMS_ITS | Clinical Summary ---
Author Organization [facility] Address [address] [place] [address] Care Team Providers Care Director Of Therapy Services Name Role Phone Unavailable Primary Care Provider Unavailabl e Source Comments The following information is NOT included in Care Everywhere downloads:Psychiatric notes, ECG results, Cardiac Rehab notes, Pulmonary Function notes, data from SmartForms (includes but not limited toPregnancy data,audiograms, eye exams, pre-surgical evaluation notes, well-child exam data).[facility] Encounters Date Type Department Care Team Description 09/22/2024 Telephone [facility] Care Management/Patient Access [address] [place] [address] Tai Ferguson MD from Last 3 Months Social History Tobacco Use Types Packs/Day Years Used Date Smoking Tobacco: Never Assessed Comments Unknown Sex and Gender Information Value Date Recorded Sex Assigned at Not on file Legal Sex Female 1:34 PM EDT Gender Identity Not on file Sexual Orientation Not on file Last Filed Vital Signs Vital Sign Reading Time Taken Comments Blood Pressure 102/71 09/24/2024 3:34 AM EDT Pulse 94 09/24/2024 3:34 AM EDT Temperature 37.7 C (99.8 F) 09/24/2024 3:34 AM EDT Respiratory Rate 18 09/24/2024 3:34 AM EDT Oxygen Saturation 94% 09/24/2024 3:34 AM EDT RA Inhaled Oxygen Concentration - - Weight - - Height - - Body Mass Index - - Plan of Treatment Health Maintenance Due Date Last Done Comments HIV Test 12/18/2010 Hepatitis C Antibody 12/18/2013 Tdap Booster 12/18/2013 Hepatitis A (HAV) Vaccine (optional start 19+ years) 12/18/2014 Hepatitis B (HBV) Vaccine (1 of 3 - 19+ 3-dose series) 12/18/2014 Pap Smear 12/18/2016 HPV Vaccine (optional start 27-45 years) 12/18/2022 COVID-19 Vaccine (1 2023-2 5 season) 2024 Influenza Vaccine (#1) 2024 Shingles (RZV) Vaccine (1 of 2) 12/18/2045 Mammography Discontinued Pneumococcal Vaccine(s) Aged Out No l onger eligible based on patient's age to complete this topic Insurance [employer] - HMO/PPO/POS
--- OUTSIDE RECORDS SUMMARY | 2024-10-23 14:49 | XMS_ITS | Encounter Summary ---
Author Organization [facility] Address [address] [place] [address] Care Team Providers Care Correctional Therapy Director Name Role Phone Penelope Walker ECONOMIC RESEARCH ANALYST-FARM TRUCK DRIVER Unavailable Blane Beavers DO Primary Care Provider [phone] Penelope Walker ECONOMIC RESEARCH ANALYST-FARM TRUCK DRIVER Unavailable Encounter Details Date Type Department Care Team (Late st Contact Info) Description 08/17/2023 Abstract [facility] [address] [facility] [place] 230 [place] [phone] Blane Beavers DO [address] [facility] 230 [place], [place] [id number] Social History Tobacco Use Types Packs/Day Years [...] How often do you attend chur or baptism services? 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 on file Not on nidia e Not on file documented as of this encounter Plan of Treatment Upcoming Encounters Date Type Department Care Team (Late st Contact Info) Description 11/27/2024 3:00 PM EDT Office Visit [facility] [place] [facility] 112 [facility] [address] [place] [address] Penelope Walker, ECONOMIC RESEARCH ANALYST-FARM TRUCK DRIVER 112 [facility] 160 [place] [address] documented as of this encounter Visit Diagnoses Not on filedocumented in this encounter Care Teams Correctional Therapy Director Relationship Specialty Start Date End Date Blane Beavers DO [address] [facility] 230 [place] [address] PCP - General Family Medicine 02/09/23 Penelope Walker, ECONOMIC RESEARCH ANALYST-FARM TRUCK DRIVER 112 [place] [facility] 160 [place] [address] PCP - [place] [employer] 02/20/24 Penelope Walker, ECONOMIC RESEARCH ANALYST-FARM TRUCK DRIVER [address] [address] Nurse Practitioner Behavioral Health 07/28/22 documented as of this encounter
--- OUTSIDE RECORDS SUMMARY | 2024-10-23 14:49 | XMS_ITS | Encounter Summary ---
Author Organization [facility] Address [address] [place] [address] Care Team Providers Care Director Product Management Name Role Phone Penelope Walker GSA COORDINATOR-POCKET SETTER LOCKSTITCH Unavailable Blane Beavers DO Primary Care Provider Penelope Walker GSA COORDINATOR-POCKET SETTER LOCKSTITCH Unavailable Encounter Details Date Type Department Care Team (Late st Contact Info) Description 08/17/2023 [facility] [address] [facility] 230 [place] [phone] Blane Beavers DO [address] [facility] 230 [place], [place] [id number] Social History Tobacco Use Types Packs/Day Years [...] How often do you attend chur or alevism services? 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 160 [place] [address] documented as of this encounter Visit Diagnoses Not on filedocumented in this encounter Care Teams Director Product Management Relationship Specialty Start Date End Date Blane Beavers DO [address] [facility] 230 [place] [address] PCP - General Family Medicine 02/09/23 Penelope Walker, GSA COORDINATOR-POCKET SETTER LOCKSTITCH 112 [facility] 160 [place] [address] PCP - [place] [employer] 02/20/24 Penelope Walker, GSA COORDINATOR-POCKET SETTER LOCKSTITCH [address] [address] Nurse Practitioner Behavioral Health 07/28/22 documented as of this encounter
--- OUTSIDE RECORDS SUMMARY | 2024-10-23 14:49 | XMS_ITS | Encounter Summary ---
Author Organization [facility] Address [address] [place] [address] Care Team Providers Care Mold Puller Name Role Phone Penelope Walker HOSPITAL SALES REPRESENTATIVE-FIRE DEPARTMENT BATTALION CHIEF Unavailable Blane Beavers DO Primary Care Provider Penelope Walker HOSPITAL SALES REPRESENTATIVE-FIRE DEPARTMENT BATTALION CHIEF Unavailable Encounter Details Date Type Department Care Team (Late st Contact Info) Description 08/17/2023 [facility] [address] [facility] 230 [place] [phone] Blane Beavers DO [address] [facility] 230 [place], [place] [phone] Social History Tobacco Use Types Packs/Day Years [...] How often do you attend chur or sikh services? 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) Not on file Not on nidia e Not on file documented as of this encounter Plan of Treatment Upcoming Encounters Date Type Department Care Team (Late st Contact Info) Description 11/27/2024 3:00 PM EDT Office Visit [facility] [place] [facility] 112 [facility] [address] [place] [address] Penelope Walker, HOSPITAL SALES REPRESENTATIVE-FIRE DEPARTMENT BATTALION CHIEF 112 [facility] 160 [place] [address] documented as of this encounter Visit Diagnoses Not on filedocumented in this encounter Care Teams Mold Puller Relationship Specialty Start Date End Date Blane Beavers DO [address] [facility] 230 [place] [address] PCP - General Family Medicine 02/09/23 Penelope Walker, HOSPITAL SALES REPRESENTATIVE-FIRE DEPARTMENT BATTALION CHIEF 112 [place] [facility] 160 [place] [address] PCP - [place] Commercial 02/20/24 Penelope Walker, HOSPITAL SALES REPRESENTATIVE-FIRE DEPARTMENT BATTALION CHIEF [address] [address] Nurse Practitioner Behavioral Health 07/28/22 documented as of this encounter
--- OUTSIDE RECORDS SUMMARY | 2024-10-23 14:49 | XMS_ITS | Encounter Summary ---
Author Organization [facility] Address [address] [place] [address] Care Team Providers Care Computer Game Programmer Name Role Phone Penelope Wakler GALVANOMETER ASSEMBLER-LEASING AGENT Unavailable Blane Beavers DO Primary Care Provider Penelope Walker GALVANOMETER ASSEMBLER-LEASING AGENT Unavailable Encounter Details Date Type Department Care Team (Late st Contact Info) Description 08/17/2023 [facility] [address] [facility] 230 [place] [phone] Blane Beavers DO [address] [facility] 230 [place], [place] [phone] Social History Tobacco Use Types Packs/Day Years [...] How often do you attend chur or jew services? Never 02/09/2023 Do you belong to any clubs o r organizations such as gnosticism groups, unions, fraternal or athletic groups, or [...] Recorded Patient Health Questionnaire-2 Score 0 04/13/2023 [facility] of Occupat ional Health - Occupational [...] in a fpc (including now)? No 02/09/2023 Education Answer Date Recorded What is the highest level of school you have completed or the highest degree you have received? 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) Not on file Not on nidia e Not on file documented as of this encounter Plan of Treatment Upcoming Encounters Date Type Department Care Team (Late st Contact Info) Description 11/27/2024 3:00 PM EDT Office Visit [facility] [place] [facility] 112 [facility] [address] [place] [address] Penelope Walker, GALVANOMETER ASSEMBLER-LEASING AGENT 112 [facility] 160 [place] [address] documented as of this encounter Visit Diagnoses Not on filedocumented in this encounter Care Teams Computer Game Programmer Relationship Specialty Start Date End Date Blane Beavers DO [address] [facility] 230 [place] [address] PCP - General Family Medicine 02/09/23 Penelope Walker, GALVANOMETER ASSEMBLER-LEASING AGENT 112 [place] [facility] 160 [place] [address] PCP - [place] Commercial 02/20/24 Penelope Walker, GALVANOMETER ASSEMBLER-LEASING AGENT [address] [address] Nurse Practitioner Behavioral Health 07/28/22 documented as of this encounter
--- OUTSIDE RECORDS SUMMARY | 2024-10-23 14:49 | XMS_ITS | Clinical Summary ---
Author Organization [facility] Address [address] [place] [address] Care Team Providers Care Creative Writing English Professor Name Role Phone Unavailable Primary Care Provider Unavailabl e Allergies Active Allergy Reactions Criticality Noted Date Comments Etonogestrel-Ethinyl Estradiol Other: See Comments 10/03/2024 Medications sertraline (ZOLOFT) 50 mg tablet Take 50 mg by mouth once daily. 05/29/2024 Active lamoTRIgine (LAMICTAL) 150 mg tablet Take 150 mg by mouth once daily. Active cariprazine (VRAYLAR) 3 mg capsule Take 3 mg by mouth once daily. Active hydrocodone/acet aminophen (NORCO ORAL) Take by mouth. 0 Active scopolamine (TRANSDERM-SCOP) patch 1.5 mg/72 hr (delivers 1 mg over 3 days) Apply 1 patch as directed. 09/24/2024 Active cephALEXin (KEFLEX) 500 mg capsule Take 500 mg by mouth two times a day. 10/01/2024 Encounters Date Type Department Care Team Description 10/06/2024 Telephone Hematology/Medical Oncology [address] [facility] [place] [address] Marquita Rosario MD Patient Update 10/03/2024 3:20 PM EDT Office Visit Urology [address] [place] [address] Jose Townsend MD Calculus of kidney with calculus of ureter (Primary Dx); Postprocedural hematoma of a genitourinary system organ or structure following a genitourinary system procedure; Aspiration pneumonia, unspecified aspiration pneumonia type, unspecified laterality, unspecified part of lung (HCC); Thrombocytosis; Leukocytosis, unspecified type 10/03/2024 Travel 10/02/2024 Telephone Urology [address] [place] [address] Jose Townsend MD 09/30/2024 Nurse Triage NURSE PLASTER CASTER [address] [place] [address] aMrianne Sears, GEOFF Blurred Vision from Last 3 Months Immunizations Immunization Administration Dates Next Due influenza vaccine, unspecified formulation 03/06 Social History Tobacco Use Types Packs/Day Years Used Date Smoking Tobacco: Never Assessed Area Deprivation Index Answer Date Ron rded National Score (1-100), lower number is lower ri sk 78 10/03/2024 State Score (1-10), lower number is lower risk 6 10/03/2024 Data from: https://www.neighborhoodatlas.[facility]/. Last address used for calculation [address] [facility] 6 10/03/2024 Comments Unknown Sex and Gender Information Value Date Recorded Sex Assigned at Not on file Legal Sex Female 11:25 AM EST Gender Identity Not on file Sexual Orientation Not on file Last Filed Vital Signs Vital Sign Reading Time Taken Comments Blood Pressure 109/78 10/03/2024 3:51 PM EDT Pulse 77 10/03/2024 3:51 PM EDT Temperature - - Respiratory Rate - - Oxygen Saturation - - Inhaled Oxygen Concentration - - Weight 81.6 kg (180 lb) 10/03/2024 3:51 PM EDT Height - - Body Mass Index - - Plan of Treatment Health Maintenance Due Date Last Done Comments Anxiety Screening 12/18/2013 Depression Screening 12/18/2013 HIV Screening 12/18/2013 Hepatitis C Screening 12/18/2013 Cervical Cancer Screening 12/18/2016 HPV Vaccine (1 - 3-dose SCDM series) 12/18/2022 Influenza Vaccine (#1) 2024 , 12/22/2022, 11/25/2019, Additional history exists DTaP,Tdap,Td Vaccine (9 - Td or Tdap) 01/24/2029 01/24/2019, 10/09/2017, 10/23/2014, Additional history exists Hepatitis B Vaccine Completed 07/01/1996, 02/29/1996, 1995 Insurance [facility]
--- OUTSIDE RECORDS SUMMARY | 2024-10-23 14:49 | XMS_ITS | Encounter Summary ---
Author Organization [facility] Address [address] [place] [address] Care Team Providers Care Equipment Validation Engineer Name Role Phone ConsueloAlexandrePenelope valladares Karina HUDSON-REFERENCE DATA EXPERT Unavailable Blane Beavers DO Primary Care Provider Encounter Details Date Type Department Care Team (Late st Contact Info) Description 09/17/2024 Abstract [facility] [address] [facility] 230 [place] [address] Blane Beavers DO [address] [facility] 230 [place] [address] Social History Tobacco Use Types Packs/Day Years [...] How often do you attend chur or rastafarian services? Never 02/09/2023 Do you [...] Master's degree (e.g., MA, MS, Jennifer, MEd, UNDERWATER TRAPPER, NILAM) 03/19/2023 Comments Unknown Sex and Gender [...] Health 112 [facility] [address] [place] [address] Penelope Walker APRN-REFERENCE DATA EXPERT 112 [facility] [address] [place] [address] documented as of this encounter Visit Diagnoses Not on filedocumented in this encounter Care Teams Equipment Validation Engineer Relationship Specialty Start Date End Date Blane Beavers DO [address] [facility] 230 [place] [address] PCP - General Family Medicine 02/09/23 Penelope Walker APRN-REFERENCE DATA EXPERT 112 [facility] 160 [place] [address] Nurse Practitioner Behavioral Health 07/28/22 documented as of this encounter
--- OUTSIDE RECORDS SUMMARY | 2024-10-23 14:49 | XMS_ITS | Encounter Summary ---
Author Organization [facility] Address [address] [place] [address] Care Team Providers Care Wool Spotter Name Role Phone Penelope Walker FORENSIC SCIENTIST-BAG MACHINE HELPER Unavailable Blane Beavers DO Primary Care Provider Penelope Walker FORENSIC SCIENTIST-BAG MACHINE HELPER Unavailable Encounter Details Date Type Department Care Team (Late st Contact Info) Description 08/17/2023 [facility] [address] [facility] 230 [place] [phone] Blane Beavers DO [address] [facility] 230 [place], [place] [phone] Social History Tobacco Use Types Packs/Day Years [...] any clubs o r organizations such as anglican groups, unions, fraternal or athletic groups, or [...] Master's degree (e.g., MA, MS, Jennifer, MEd, REGIONAL AGRONOMIST, NILAM) 03/19/2023 Comments Unknown Sex and Gender Information Value Date Recorded Sex Assigned at Not on file Legal Sex Female 6:35 PM EDT Gender Identity Not on file Sexual Orientation Not on file 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 [address] [place] [address] Penelope Walker, FORENSIC SCIENTIST-BAG MACHINE HELPER 112 [facility] 160 [place] [address] documented as of this encounter Visit Diagnoses Not on filedocumented in this encounter Care Teams Wool Spotter Relationship Specialty Start Date End Date Blane Beavers DO [address] [facility] 230 [place] [address] PCP - General Family Medicine 02/09/23 Penelope Walker, FORENSIC SCIENTIST-BAG MACHINE HELPER 112 [place] [facility] 160 [place] [address] PCP - [place] [employer] 02/20/24 Penelope Walker, FORENSIC SCIENTIST-BAG MACHINE HELPER [address] [address] Nurse Practitioner Behavioral Health 07/28/22 documented as of this encounter
--- OUTSIDE RECORDS SUMMARY | 2024-10-23 14:50 | XMS_ITS | Encounter Summary ---
Author Organization [facility] Address [address] [place] [address] Care Team Providers Care Filling And Packing Supervisor Name Role Phone ConsueloAlexandrePenelope valladares Karina HUDSON-CITY MANAGER Unavailable Blane Beavers DO Primary Care Provider Encounter Details Date Type Department Care Team (Late st Contact Info) Description 09/18/2024 Abstract [facility] [address] [facility] 230 [place] [address] Blane Beavers DO [address] [facility] 230 [place] [address] Social History Tobacco Use Types Packs/Day Years [...] How often do you attend chur or congregation services? Never 02/09/2023 Do you [...] Master's degree (e.g., MA, MS, Jennifer, MEd, ALMOND ROASTER, NILAM) 03/19/2023 Comments Unknown Sex and Gender [...] Office Visit [facility] [place] [facility] 112 [facility] [address] [place] [address] Penelope Walker APRN-CITY MANAGER 112 [facility] [address] [place] [address] documented as of this encounter Visit Diagnoses Not on filedocumented in this encounter Care Teams Filling And Packing Supervisor Relationship Specialty Start Date End Date Blane Beavers DO [address] [facility] 230 [place] [address] PCP - General Family Medicine 02/09/23 Penelope Walker APRN-CITY MANAGER 112 [place] [facility] 160 [place] [address] Nurse Practitioner Behavioral Health 07/28/22 documented as of this encounter
--- OUTSIDE RECORDS SUMMARY | 2024-10-23 14:50 | XMS_ITS | Encounter Summary ---
Author Organization [facility] Address [address] [place] [address] Care Team Providers Care Brickmason Apprentice Name Role Phone Penelope Walker RIDES SUPERVISOR-RUG CLEANER HAND Unavailable Blane Beavers DO Primary Care Provider Penelope Walker RIDES SUPERVISOR-RUG CLEANER HAND Unavailable Encounter Details Date Type Department Care Team (Late st Contact Info) Description 08/17/2023 Abstract [facility] [address] [facility] 230 [place] [phone] Blane Beavers DO [address] [facility] 230 [place], [place] [phone] Social History Tobacco Use Types Packs/Day Years [...] How often do you attend chur or mu-ism services? 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 [address] [place] [address] Penelope Walker, RIDES SUPERVISOR-RUG CLEANER HAND 112 [facility] 160 [place] [address] documented as of this encounter Visit Diagnoses Not on filedocumented in this encounter Care Teams Brickmason Apprentice Relationship Specialty Start Date End Date Blane Beavers DO [address] [facility] 230 [place] [address] PCP - General Family Medicine 02/09/23 Penelope Walker, RIDES SUPERVISOR-RUG CLEANER HAND 112 [facility] 160 [place] [address] PCP - [place] Commercial 02/20/24 Penelope Walker, RIDES SUPERVISOR-RUG CLEANER HAND [address] [address] Nurse Practitioner Behavioral Health 07/28/22 documented as of this encounter
--- OUTSIDE RECORDS SUMMARY | 2024-10-23 14:50 | XMS_ITS | Encounter Summary ---
Author Organization [facility] Address [address] [place] [address] Care Team Providers Care Director New Product Name Role Phone ConsueloAlexandrePenelope valladares Karina HUDSON-SCREEN MAKER Unavailable Blane Beavers DO Primary Care Provider Encounter Details Date Type Department Care Team (Late st Contact Info) Description 09/23/2024 [facility] [address] [facility] CHU [address] [place] [address] Blane Beavers DO [address] [facility] Chu 230 [place] [address] Social History Tobacco Use Types Packs/Day Years [...] often do you attend chur ch or presybeterian services? Never 09/25/2024 Do you belong to [...] Recorded Patient Health Questionnaire-2 Score 1 12/17/2023 [facility] - [...] Master's degree (e.g., MA, MS, Jennifer, MEd, CHEMICAL PLANT MANAGER, NILAM) 03/19/2023 Comments Unknown Sex and [...] [facility] [address] [facility] [address] [place] [address] Penelope Walker, TIMBER BUYER-SCREEN MAKER [address] [facility] [address] [place] [address] documented as of this encounter Visit Diagnoses Not on filedocumented in this encounter Care Teams Director New Product Relationship Specialty Start Date End Date Blane Beavers DO [address] [facility] 230 [place] [address] PCP - General Family Medicine 02/09/23 Penelope Walker, TIMBER BUYER-SCREEN MAKER [address] [facility] [address] [place] [address] Nurse Practitioner Behavioral Health 07/28/22 documented as of this encounter
--- OUTSIDE RECORDS SUMMARY | 2024-10-23 14:50 | XMS_ITS | Encounter Summary ---
Author Organization [facility] Address [address] [place] [address] Care Team Providers Care Electroneurodiagnostic Technician Name Role Phone ConsueloAlexandrePenelope valladares Karina HUDSON-CARPENTER ASSISTANT Unavailable Blane Beavers DO Primary Care Provider Encounter Details Date Type Department Care Team (Late st Contact Info) Description 09/19/2024 Abstract [facility] [address] [facility] CHU [address] [place] [address] Blane Beavers DO [address] [facility] Chu 230 [place] [address] Social History Tobacco Use Types Packs/Day Years [...] Recorded Patient Health Questionnaire-2 Score 1 12/17/2023 [facility] - Occupational [...] Master's degree (e.g., MA, MS, Jennifer, MEd, LEADERSHIP PROGRAM ASSOCIATE, NILAM) 03/19/2023 Comments Unknown Sex and [...] Office Visit [facility] 112 [facility] [address] [place] [address] Penelope Walker APRN-CARPENTER ASSISTANT 112 [facility] [address] [place] [address] documented as of this encounter Visit Diagnoses Not on filedocumented in this encounter Care Teams Electroneurodiagnostic Technician Relationship Specialty Start Date End Date Blane Beavers DO [address] [facility] 230 [place] [address] PCP - General Family Medicine 02/09/23 Penelope Walker APRN-CARPENTER ASSISTANT 112 [facility] 160 [place] [address] Nurse Practitioner Behavioral Health 07/28/22 documented as of this encounter
--- OUTSIDE RECORDS SUMMARY | 2024-10-23 14:50 | XMS_ITS | Encounter Summary ---
Author Organization [facility] Address [address] [place] [address] Care Team Providers Care Tactical Air Defense Controller Name Role Phone ConsueloAlexandrePenelope valladares Karina HUDSON-VOICE PROFESSOR Unavailable Blane Beavers DO Primary Care Provider Encounter Details Date Type Department Care Team (Late st Contact Info) Description 09/09/2024 Abstract [facility] [address] [facility] CHU [address] [place] [address] Blane Beavers DO [address] [facility] Chu 230 [place] [address] Social History Tobacco Use Types Packs/Day Years [...] How often do you attend chur or confucianism services? Never 02/09/2023 Do you [...] Recorded Patient Health Questionnaire-2 Score 1 12/17/2023 [facility] ional Health [...] Master's degree (e.g., MA, MS, Jennifer, MEd, VACATION GUIDE, NILAM) 03/19/2023 Comments Unknown Sex and Gender [...] Office Visit [facility] 112 [facility] [address] [place] [address] Penelope Walker APRN-VOICE PROFESSOR 112 [facility] [address] [place] [address] documented as of this encounter Visit Diagnoses Not on filedocumented in this encounter Care Teams Tactical Air Defense Controller Relationship Specialty Start Date End Date Blane Beavers DO [address] [facility] 230 [place] [address] PCP - General Family Medicine 02/09/23 Penelope Walker APRN-VOICE PROFESSOR 112 [facility] 160 [place] [address] Nurse Practitioner Behavioral Health 07/28/22 documented as of this encounter
--- OUTSIDE RECORDS SUMMARY | 2024-10-23 14:50 | XMS_ITS | Encounter Summary ---
Author Organization [facility] Address [address] [place] [address] Care Team Providers Care Psychiatry Teacher Name Role Phone Abrahan Merrill MD Primary Care Provider + [phone] Penelope Walker TICKETING AGENT-EXPLORATION GEOLOGIST Unavailable Blane Beavers DO Primary Care Provider [phone] Penelope Walker TICKETING AGENT-EXPLORATION GEOLOGIST Unavailable Encounter Details Date Type Department Care Team (Late st Contact Info) Description 01/29/2023 [facility] [address] [facility] CHU 230 [place] [address] Blane Beavers DO [address] [facility] Chu 230 [place] [address] Social History Tobacco Use Types [...] Office Visit [facility] [address] [place] [address] Penelope Walker TICKETING AGENT-EXPLORATION GEOLOGIST [address] [address] documented as of this encounter Visit Diagnoses Not on filedocumented in this encounter Care Teams Psychiatry Teacher Relationship Specialty Start Date End Date Abrahan Merrill MD [address] [place] [address] PCP - General Family Medicine 07/28/22 02/08/23 Blane Beavers DO [address] [address] PCP - General Family Medicine 02/09/23 Penelope Walker TICKETING AGENT-EXPLORATION GEOLOGIST [address] [address] PCP - [place] [employer] 02/20/24 Penelope Walker TICKETING AGENT-EXPLORATION GEOLOGIST [address] [address] Nurse Practitioner Behavioral Health 07/28/22 documented as of this encounter
--- OUTSIDE RECORDS SUMMARY | 2024-10-23 14:50 | XMS_ITS | Encounter Summary ---
Author Organization [facility] Address [address] [place] [address] Care Team Providers Care Community Reinvestment Act Officer Name Role Phone ConsueloAlexandrePenelope valladares Karina HUDSON-MICROFILMER Unavailable Blane Beavers DO Primary Care Provider Encounter Details Date Type Department Care Team (Late st Contact Info) Description 10/10/2024 [facility] [address] [facility]U 230 [place] [address] Blane Beavers DO [address] [facility] Chu 230 [place] [address] Social History Tobacco Use Types Packs/Day Years [...] any clubs o r organizations such as hoahaoism groups, unions, fraternal or athletic groups, or [...] Recorded Patient Health Questionnaire-2 Score 1 12/17/2023 [facility] - Occupational Stress Questionnaire Answer [...] any time in the past 12 m [facility], were you homeless or living in a skilled nursing (including now)? No 09/25/2024 Education Answer Date Recorded What is the highest level of school you have completed or the highest degree you have received? Master's degree (e.g., MA, MS, Jennifer, MEd, COPIER AND PRINTER FIELD TECHNICIAN, NILAM) 03/19/2023 Comments Unknown Sex and [...] Office Visit [facility] 112 [facility] [address] [place] [address] Penelope Walker, BOTTLE AND GLASS INSPECTOR-MICROFILMER 112 [facility] [address] [place] [address] documented as of this encounter Visit Diagnoses Not on filedocumented in this encounter Care Teams Community Reinvestment Act Officer Relationship Specialty Start Date End Date Blane Beavers DO [address] [facility] 230 [place] [address] PCP - General Family Medicine 02/09/23 Penelope Walker, BOTTLE AND GLASS INSPECTOR-MICROFILMER 112 [facility] 160 [place] [address] Nurse Practitioner Behavioral Health 07/28/22 documented as of this encounter
--- OUTSIDE RECORDS SUMMARY | 2024-10-23 14:50 | XMS_ITS | Encounter Summary ---
Author Organization [facility] Address [address] [place] [address] Care Team Providers Care Cartridge Maker Name Role Phone ConsueloAlexandrePenelope valladares Karina HUDSON-[facility] Unavailable Blane Beavers DO Primary Care Provider Encounter Details Date Type Department Care Team (Late st Contact Info) Description 09/22/2024 [facility] [address] [facility] 230 [place] [address] Blane Beavers DO [address] [facility] Chu 230 [place] [address] Social History Tobacco Use Types Packs/Day Years [...] attend chur ch or hoahaoism services? Never 09/25/2024 Do you belong to any clubs o r organizations such as latter-day groups, unions, fraternal or athletic groups, or [...] Questionnaire-2 Score 1 12/17/2023 [facility] - Occupational Stress Questionnaire [...] a care home (including now)? No 02/09/2023 Housing Stability Vital Sign Answer Bhavin e Recorded In the last 12 months, was t here a time when you were not able to pay the mortgage or rent on time? No 09/25/2024 In the past 12 months, how m any times have you moved where you were living? 1 09/25/2024 At any time in the past 12 m [facility], were you homeless or living in a care home (including now)? No 09/25/2024 Education Answer Date Recorded What is the highest level of school you have completed or the highest degree you have received? Master's degree (e.g., MA, MS, Jennifer, MEd, PRODUCTION LINE WELDER, NILAM) 03/19/2023 Comments Unknown Sex and Gender [...] [facility] [address] [facility] 160 [place] [address] Penelope Walker, RUBY ON RAILS DEVELOPER-[facility] [address] [facility] 160 [place] [address] documented as of this encounter Visit Diagnoses Not on filedocumented in this encounter Care Teams Cartridge Maker Relationship Specialty Start Date End Date Blane Beavers DO [address] [facility] 230 [place] [address] PCP - General Family Medicine 02/09/23 Penelope Walker, RUBY ON RAILS DEVELOPER-[facility] [address] [facility] 160 [place] [address] Nurse Practitioner Behavioral Health 07/28/22 documented as of this encounter
--- OUTSIDE RECORDS SUMMARY | 2024-10-23 14:50 | XMS_ITS | Encounter Summary ---
Author Organization [facility] Address [address] [place] [address] Care Team Providers Care Gemologist Name Role Phone ConsueloAlexandrePenelope valladares Karina HUDSON-LOOP SEWER Unavailable Blane Beavers DO Primary Care Provider Encounter Details Date Type Department Care Team (Late st Contact Info) Description 09/22/2024 [facility] [address] [facility] CHU 230 [place] [address] Blane Beavers DO [address] [facility] Chu 230 [place] [address] Social History Tobacco Use Types Packs/Day Years [...] attend chur ch or adventism services? Never 09/25/2024 Do you belong to any clubs o r organizations such as evangelical groups, unions, fraternal or athletic groups, or [...] Recorded Patient Health Questionnaire-2 Score 1 12/17/2023 [facility] - Occupational Stress [...] any time in the past 12 m [facility], were you homeless or living in a m[facility]p (including now)? No 09/25/2024 Education Answer Date Recorded What is the highest level of school you have completed or the highest degree you have received? Master's degree (e.g., MA, MS, Jennifer, MEd, TIRE STRIPPER, NILAM) 03/19/2023 Comments Unknown Sex and Gender [...] [facility] [address] [facility] 160 [place] [address] Penelope Walker, LAN ADMINISTRATOR-LOOP SEWER [address] [facility] 160 [place] [address] documented as of this encounter Visit Diagnoses Not on filedocumented in this encounter Care Teams Gemologist Relationship Specialty Start Date End Date Blane Beavers DO [address] [facility] 230 [place] [address] PCP - General Family Medicine 02/09/23 Penelope Walker, LAN ADMINISTRATOR-LOOP SEWER [address] [facility] 160 [place] [address] Nurse Practitioner Behavioral Health 07/28/22 documented as of this encounter
--- OUTSIDE RECORDS SUMMARY | 2024-10-23 14:50 | XMS_ITS | Encounter Summary ---
Author Organization [facility] Address [address] [place] [address] Care Team Providers Care Adult Caregiver Name Role Phone ConsueloAlexandrePenelope valladares Karina HUDSON-BLOCK MECHANIC Unavailable Blane Beavers DO Primary Care Provider [phone] Encounter Details Date Type Department Care Team (Late st Contact Info) Description 09/18/2024 Abstract [facility] [address] [facility] CHU 230 [place] [address] Blane Beavers DO [address] [facility] Chu 230 [place] [address] Social History Tobacco Use Types Packs/Day Years [...] How often do you attend chur or restorationist services? Never 02/09/2023 Do you belong to [...] Master's degree (e.g., MA, MS, Jennifer, MEd, POWDER COAT PAINTER, NILAM) 03/19/2023 Comments Unknown Sex and Gender [...] Office Visit [facility] 112 [facility] [address] [place] [address] Penelope Walker APRN-BLOCK MECHANIC 112 [facility] [place] [facility] [address] [place] [address] documented as of this encounter Visit Diagnoses Not on filedocumented in this encounter Care Teams Adult Caregiver Relationship Specialty Start Date End Date Blane Beavers DO [address] [facility] 230 [place] [address] PCP - General Family Medicine 02/09/23 Penelope Walker APRN-BLOCK MECHANIC 112 [facility] 160 [place] [address] Nurse Practitioner Behavioral Health 07/28/22 documented as of this encounter
--- OUTSIDE RECORDS SUMMARY | 2024-10-23 14:50 | XMS_ITS | Encounter Summary ---
Author Organization [facility] Address [address] [place] [address] Care Team Providers Care Retail Advertising Sales Manager Name Role Phone ConsueloAlexandrePenelope valladares Karina HUDSON-AIRCRAFT CLEANER Unavailable Blane Beavers DO Primary Care Provider Encounter Details Date Type Department Care Team (Late st Contact Info) Description 09/09/2024 Abstract [facility] [address] [facility] CHU [address] [place] [address] Blane Beavers DO [address] [facility] Chu [address] [place] [address] Social History Tobacco Use Types Packs/Day Years [...] How often do you attend chur or yarsanism services? Never 02/09/2023 Do you [...] Recorded Patient Health Questionnaire-2 Score 1 12/17/2023 [facility]at [...] Master's degree (e.g., MA, MS, Jennifer, MEd, FLOOR MECHANIC, NILAM) 03/19/2023 Comments Unknown Sex and [...] Visit [facility] 112 [facility] [address] [place] [address] Penelope Walker APRN-AIRCRAFT CLEANER 112 [facility] [address] [place] [address] documented as of this encounter Visit Diagnoses Not on filedocumented in this encounter Care Teams Retail Advertising Sales Manager Relationship Specialty Start Date End Date Blane Beavers DO [address] [facility] 230 [place] [address] PCP - General Family Medicine 02/09/23 Penelope Walker APRN-AIRCRAFT CLEANER 112 [place] [facility] 160 [place] [address] Nurse Practitioner Behavioral Health 07/28/22 documented as of this encounter
--- OUTSIDE RECORDS SUMMARY | 2024-10-23 14:50 | XMS_ITS | Encounter Summary ---
Author Organization [facility] Address [address] [place] [address] Care Team Providers Care Youth Program Director Name Role Phone ConsueloAlexandrePenelope valladares Karina HUDSON-DESKTOP PUBLISHING OPERATOR Unavailable Blane Beavers DO Primary Care Provider Encounter Details Date Type Department Care Team (Late st Contact Info) Description 09/23/2024 [facility] [address] [facility] CHU [address] [place] [address] Blane Beavers DO [address] [facility] Chu [address] [place] [address] Social History Tobacco Use Types Packs/Day Years [...] attend chur ch or orthodox services? Never 09/25/2024 Do you belong to any clubs o r organizations such as spiritism groups, unions, fraternal or athletic groups, or [...] Recorded Patient Health Questionnaire-2 Score 1 12/17/2023 [facility] - Occupational Stress Questionnaire [...] in a alf (including now)? No 02/09/2023 Housing Stability Vital Sign Answer Bhavin e Recorded In the last 12 months, was t here a time when you were not able to pay the mortgage or rent on time? No 09/25/2024 In the past 12 months, how m any times have you moved where you were living? 1 09/25/2024 At any time in the past 12 m [facility], were you homeless or living in a alf (including now)? No 09/25/2024 Education Answer Date Recorded What is the highest level of school you have completed or the highest degree you have received? Master's degree (e.g., MA, MS, Jennifer, MEd, SOLUTION ANALYST, NILAM) 03/19/2023 Comments Unknown Sex and [...] [facility] [address] [facility] 160 [place] [address] Penelope Walker, CORSETIER-DESKTOP PUBLISHING OPERATOR [address] [facility] [address] [place] [address] documented as of this encounter Visit Diagnoses Not on filedocumented in this encounter Care Teams Youth Program Director Relationship Specialty Start Date End Date Blane Beavers DO [address] [facility] 230 [place] [address] PCP - General Family Medicine 02/09/23 Penelope Walker, CORSETIER-DESKTOP PUBLISHING OPERATOR [address] [facility] 160 [place] [address] Nurse Practitioner Behavioral Health 07/28/22 documented as of this encounter
--- OUTSIDE RECORDS SUMMARY | 2024-10-23 14:50 | XMS_ITS | Encounter Summary ---
Author Organization [facility] Address [address] [place] [address] Care Team Providers Care Sensor Technician Name Role Phone ConsueloAlexandrePenelope valladares Karina HUDSON-KNIFE SETTER Unavailable Blane Beavers DO Primary Care Provider Encounter Details Date Type Department Care Team (Late st Contact Info) Description 09/17/2024 Abstract [facility] [address] [facility] CHU [address] [place] [address] Blane Beavers DO [address] [facility] Chu [address] [place] [address] Social History Tobacco Use Types Packs/Day Years [...] How often do you attend chur or anglican services? Never 02/09/2023 Do you belong to [...] Master's degree (e.g., MA, MS, Jennifer, MEd, PROPERTY APPRAISER, NILAM) 03/19/2023 Comments Unknown Sex and Gender [...] 112 [facility] [address] [place] [address] Penelope Walker APRN-KNIFE SETTER 112 [facility] [address] [place] [address] documented as of this encounter Visit Diagnoses Not on filedocumented in this encounter Care Teams Sensor Technician Relationship Specialty Start Date End Date Blane Beavers DO [address] [facility] 230 [place] [address] PCP - General Family Medicine 02/09/23 Penelope Walker APRN-KNIFE SETTER 112 [facility] 160 [place] [address] Nurse Practitioner Behavioral Health 07/28/22 documented as of this encounter
--- OUTSIDE RECORDS SUMMARY | 2024-10-23 14:50 | XMS_ITS | Encounter Summary ---
Author Organization [facility] Address [address] [place] [address] Care Team Providers Care Director Of Extension Work Name Role Phone Penelope Walker APRN-GUEST SERVICES LEAD Unavailable Blane Beavers DO Primary Care Provider Encounter Details Date Type Department Care Team (Late st Contact Info) Description 10/17/2024 External Result Encounter [facility] External Department Unsolicited Blane Severino, DO [address] [place] [address] Social History Tobacco Use Types Packs/Day Years [...] often do you attend chur ch or synagogue services? Never 09/25/2024 Do you belong to any clubs o r organizations such as restorationism groups, unions, fraternal or athletic groups, or [...] Recorded Patient Health Questionnaire-2 Score 1 12/17/2023 [facility] [place] of Occupat ional Health - Occupational Stress [...] in a halfway (including now)? No 02/09/2023 Housing Stability Vital Sign Answer Bhavin e Recorded In the last 12 months, was t here a time when you were not able to pay the mortgage or rent on time? No 09/25/2024 In the past 12 months, how m any times have you moved where you were living? 1 09/25/2024 At any time in the past 12 m [facility], were you homeless or living in a halfway (including now)? No 09/25/2024 Education Answer Date Recorded What is the highest level of school you have completed or the highest degree you have received? Master's degree (e.g., MA, MS, Jennifer, MEd, CALL CENTER NURSE, NILAM) 03/19/2023 Comments Unknown Sex and Gender [...] Office Visit [facility] [facility] 112 [facility] [address] [place] [address] Penelope Walker, CONCRETE PRODUCTS MACHINE OPERATOR-GUEST SERVICES LEAD 112 [facility] [address] [place] [address] documented as of this encounter Procedures Procedure Name Priority Date/Time Associated Diagnosis Comments CBC WITH AUTO DIFFERENTIAL Routine 10/17/2024 2:10 PM EDT documented in this encounter Results * (ABNORMAL) CBC auto differential (10/17/2024 2:10 PM EDT) WBC 9.4 3.8 - 11.6 [CFU]/mL 10/17/2024 2:31 PM EDT [facility] UNCORRECTED WHITE BLOOD COUNT 9.4 3.8 - 11.6 10*3/uL 10/17/2024 2:31 PM EDT [facility] RBC 4.32 3.60 - 5.00 10*6/uL 10/17/2024 2:31 PM EDT [facility] HEMOGLOBIN 11.6(L) 11.8 - 15.4 g/dL 10/17/2024 2:31 PM EDT [facility] HEMATOCRIT 34.5 34.0 - 46.4 % 10/17/2024 2:31 PM EDT [facility] MCV 79.8(L) 80 - 100 fL 10/17/2024 2:31 PM EDT [facility] MCH 26.9 24.7 - 34.3 pg 10/17/2024 2:31 PM EDT [facility] MCHC 33.7 32.0 - 35.0 g/dL 10/17/2024 2:31 PM EDT [facility] RED CELL DISTRIBUTION WIDTH, RDW 18.9(H) 11.9 - 15.3 % 10/17/2024 2:31 PM EDT [facility] PLATELET COUNT 509(H) 150 - 450 10*3/uL 10/17/2024 2:31 PM EDT [facility] MEAN PLATELET VOLUME, MPV 7.3 6.3 - 10.7 fL 10/17/2024 2:31 PM EDT [facility] NEUTROPHILS, % 54.0 . % 10/17/2024 2:31 PM EDT [facility] LYMPHOCYTES, % 34.2 . % 10/17/2024 2:31 PM EDT [facility] MONOCYTE/MACROPHA GE, % 6.4 . % 10/17/2024 2:31 PM EDT [facility] EOSINOPHILS, % 4.4 . % 10/17/2024 2:31 PM EDT [facility] BASOPHILS, % 1.0 . % 10/17/2024 2:31 PM EDT [facility] NRBC 0.0 0 - 0.5 /100{WBC} 10/17/2024 2:31 PM EDT [facility] NEUTROPHILS 5.1 1.8 - 7.7 10*3/uL 10/17/2024 2:31 PM EDT [facility] LYMPHOCYTES 3.2 1.00 - 4.8 10*3/uL 10/17/2024 2:31 PM EDT [facility] MONOCYTES 0.6 0.0 - 0.8 10*3/uL 10/17/2024 2:31 PM EDT [facility] EOSINOPHILS 0.4 0.0 - 0.45 10*3/uL 10/17/2024 2:31 PM EDT [facility] BASOPHILS 0.1 0.0 - 0.2 10*3/uL 10/17/2024 2:31 PM EDT [facility] Blood (Blood) 10/17/2024 2:1 0 PM EDT 10/17/2024 2:18 PM EDT Blane Severino DO LAB BLOOD ORDERABLES Terese l Result [facility] [address] [place] [address], [facility] [address] [place] [address] documented in this encounter Visit Diagnoses Not on filedocumented in this encounter Care Teams Director Of Extension Work Relationship Specialty Start Date End Date Blane Beavers DO [address] [facility] [address] [place] [address] PCP - General Family Medicine 02/09/23 Penelope Walker APRN-GUEST SERVICES LEAD 112 [facility] 160 [place] [address] Nurse Practitioner Behavioral Health 07/28/22 documented as of this encounter
--- OUTSIDE RECORDS SUMMARY | 2024-10-23 14:50 | XMS_ITS | Encounter Summary ---
Author Organization [facility] Address [address] [place] [address] Care Team Providers Care Guide Dog Instructor Name Role Phone ConsueloAlexandrePenelope valladares Karina HUDSON-MOSAIC TECHNICIAN Unavailable Blane Beavers DO Primary Care Provider Encounter Details Date Type Department Care Team (Late st Contact Info) Description 09/17/2024 Abstract [facility] [address] [facility] [address] [place] [address] Blane Beavers DO [address] [facility] [address] [place] [address] Social History Tobacco Use Types Packs/Day Years [...] How often do you attend chur or temple services? Never 02/09/2023 Do you belong to any clubs o r organizations such as adventism groups, unions, fraternal or athletic groups, or [...] Recorded Patient Health Questionnaire-2 Score 1 12/17/2023 [facility] of Occupat ional Health - [...] Master's degree (e.g., MA, MS, Jennifer, MEd, SMELTER OPERATOR, NILAM) 03/19/2023 Comments Unknown Sex and [...] Office Visit [facility] [facility] 112 [facility] [address] [place] [address] Penelope Walker APRN-MOSAIC TECHNICIAN 112 [facility] [address] [place] [address] documented as of this encounter Visit Diagnoses Not on filedocumented in this encounter Care Teams Guide Dog Instructor Relationship Specialty Start Date End Date Blane Beavers DO [address] [facility] 230 [place] [address] PCP - General Family Medicine 02/09/23 Penelope Walker APRN-MOSAIC TECHNICIAN 112 [place] [facility] [address] [place] [address] Nurse Practitioner Behavioral Health 07/28/22 documented as of this encounter
--- OUTSIDE RECORDS SUMMARY | 2024-10-23 14:50 | XMS_ITS | Encounter Summary ---
Author Organization [facility] Address [address] [place] [address] Care Team Providers Care Factory Engineer Name Role Phone ConsueloAlexandrePenelope valladares Karina HUDSON-CARPENTER SUPERVISOR WOODEN SHIP Unavailable Blane Beavers DO Primary Care Provider Encounter Details Date Type Department Care Team (Late st Contact Info) Description 09/17/2024 Abstract [facility] [address] [facility] [address] [place] [address] Blane Beavers DO [address] [facility] [address] [place] [address] Social History Tobacco Use Types Packs/Day Years [...] How often do you attend chur or caodaism services? Never 02/09/2023 Do you belong to any clubs o r organizations such as protestant groups, unions, fraternal or athletic groups, or [...] Recorded Patient Health Questionnaire-2 Score 1 12/17/2023 [facility] of Occupat ional Health - [...] Master's degree (e.g., MA, MS, Jennifer, MEd, DAM WORKER, NILAM) 03/19/2023 Comments Unknown Sex and [...] Office Visit [facility] [facility] 112 [facility] [address] [place] [address] Penelope Walker APRN-CARPENTER SUPERVISOR WOODEN SHIP 112 [facility] [address] [place] [address] documented as of this encounter Visit Diagnoses Not on filedocumented in this encounter Care Teams Factory Engineer Relationship Specialty Start Date End Date Blane Beavers DO [address] [facility] 230 [place] [address] PCP - General Family Medicine 02/09/23 Penelope Walker APRN-CARPENTER SUPERVISOR WOODEN SHIP [address] [place] [facility] 160 [place] [address] Nurse Practitioner Behavioral Health 07/28/22 documented as of this encounter
--- OUTSIDE RECORDS SUMMARY | 2024-10-23 14:50 | XMS_ITS | Encounter Summary ---
Author Organization [facility] Address [address] [place] [address] Care Team Providers Care Fire Hose Curer Name Role Phone Penelope Walker VACUUM REPAIRER-INVENTORY ASSOCIATE AND DRIVER Unavailable Blane Beavers DO Primary Care Provider Penelope Walker VACUUM REPAIRER-INVENTORY ASSOCIATE AND DRIVER Unavailable Encounter Details Date Type Department Care Team (Late st Contact Info) Description 08/17/2023 [facility] [address] [facility] [address] [place] [id number] Blane Beavers DO [address] [facility] 230 [place], [place] [id number] Social History Tobacco Use Types Packs/Day Years [...] place to sleep or slept in a longterm (including now)? No 02/09/2023 Education Answer Date Recorded What is the highest level of school you have completed or the highest degree you have received? 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) Not on file Not on nidia e Not on file documented as of this encounter Plan of Treatment Upcoming Encounters Date Type Department Care Team (Late st Contact Info) Description 11/27/2024 3:00 PM EDT Office Visit [facility] [facility] 112 [facility] [address] [place] [address] Penelope Walker, VACUUM REPAIRER-INVENTORY ASSOCIATE AND DRIVER 112 [facility] 160 [place] [address] documented as of this encounter Visit Diagnoses Not on filedocumented in this encounter Care Teams Fire Hose Curer Relationship Specialty Start Date End Date Blane Beavers DO [address] [facility] 230 [place] [address] PCP - General Family Medicine 02/09/23 Penelope Walker, VACUUM REPAIRER-INVENTORY ASSOCIATE AND DRIVER [address] [facility] 160 [place] [address] PCP - Beasley [employer] 02/20/24 Penelope Walker, VACUUM REPAIRER-INVENTORY ASSOCIATE AND DRIVER [address] [address] Nurse Practitioner Behavioral Health 07/28/22 documented as of this encounter
--- OUTSIDE RECORDS SUMMARY | 2024-10-23 14:50 | XMS_ITS | Encounter Summary ---
Author Organization [facility] Address [address] [place] [address] Care Team Providers Care Systems Mgr Name Role Phone ConsueloAlexandrePenelope valladares Karina HUDSON-OCCUP THERAPIST Unavailable Blane Beavers DO Primary Care Provider [phone] Encounter Details Date Type Department Care Team (Late st Contact Info) Description 09/17/2024 Abstract [facility] [address] [facility] [address] [place] [address] Blane Beavers DO [address] [facility] [address] [place] [address] Social History Tobacco Use Types Packs/Day Years [...] Recorded Patient Health Questionnaire-2 Score 1 12/17/2023 [facility] of Occupat ional Health - Occupational [...] Master's degree (e.g., MA, MS, Jennifer, MEd, CONCESSION WORKER, NILAM) 03/19/2023 Comments Unknown Sex and [...] Office Visit [facility] [facility] 112 [facility] [address] [place] [address] Penelope Walker APRN-OCCUP THERAPIST 112 [facility] [address] [place] [address] documented as of this encounter Visit Diagnoses Not on filedocumented in this encounter Care Teams Systems Mgr Relationship Specialty Start Date End Date Blane Beavers DO [address] [facility] 230 [place] [address] PCP - General Family Medicine 02/09/23 Penelope Walker APRN-OCCUP THERAPIST 112 [facility] 160 [place] [address] Nurse Practitioner Behavioral Health 07/28/22 documented as of this encounter
--- OUTSIDE RECORDS SUMMARY | 2024-10-23 14:50 | XMS_ITS | Encounter Summary ---
Author Organization [facility] Address [address] [place] [address] Care Team Providers Care Tree Scout Name Role Phone ConsueloAlexandrePenelope valladares Karina HUDSON-SEWING MACHINE OPERATOR SEMIAUTOMATIC Unavailable Blane Beavers DO Primary Care Provider [phone] Encounter Details Date Type Department Care Team (Late st Contact Info) Description 09/22/2024 [facility] [address] [facility] 230 [place] [address] Blane Beavers DO [address] [facility] [address] [place] [address] Social History Tobacco Use Types Packs/Day Years [...] Score 1 12/17/2023 [facility] - Occupational Stress [...] in a assisted (including now)? No 02/09/2023 Housing Stability Vital Sign Answer Bhavin e Recorded In the last 12 months, was t here a time when you were not able to pay the mortgage or rent on time? No 09/25/2024 In the past 12 months, how m any times have you moved where you were living? 1 09/25/2024 At any time in the past 12 m [facility], were you homeless or living in a assisted (including now)? No 09/25/2024 Education Answer Date Recorded What is the highest level of school you have completed or the highest degree you have received? Master's degree (e.g., MA, MS, Jennifer, MEd, MUSIC REHABILITATION THERAPIST, NILAM) 03/19/2023 Comments Unknown Sex and Gender [...] [facility] [facility] [address] [facility] 160 [place] [address] Penelope Walker, ETL TESTER-SEWING MACHINE OPERATOR SEMIAUTOMATIC [address] [facility] 160 [place] [address] documented as of this encounter Visit Diagnoses Not on filedocumented in this encounter Care Teams Tree Scout Relationship Specialty Start Date End Date Blane Beavers DO [address] [facility] 230 [place] [address] PCP - General Family Medicine 02/09/23 Penelope Walker, ETL TESTER-SEWING MACHINE OPERATOR SEMIAUTOMATIC [address] [facility] 160 [place] [address] Nurse Practitioner Behavioral Health 07/28/22 documented as of this encounter
--- OUTSIDE RECORDS SUMMARY | 2024-10-23 14:50 | XMS_ITS | Encounter Summary ---
Author Organization [facility] Address [address] [place] [address] Care Team Providers Care Guest Services Representative Name Role Phone ConsueloAlexandrePenelope valladares Karina HUDSON-TRAFFIC WORKFORCE REPRESENTATIVE Unavailable Blane Beavers DO Primary Care Provider Encounter Details Date Type Department Care Team (Late st Contact Info) Description 09/22/2024 [facility] [address] [facility] [address] [place] [address] Blane Beavers DO [address] [facility] Chu 230 [place] [address] Social History Tobacco Use Types Packs/Day Years [...] often do you attend chur ch or holiness services? Never 09/25/2024 Do you belong to any clubs o r organizations such as rastafari groups, unions, fraternal or athletic groups, or [...] Recorded Patient Health Questionnaire-2 Score 1 12/17/2023 [facility] - Occupational Stress Questionnaire [...] a group home (including now)? No 02/09/2023 Housing Stability [...] in the past 12 m [facility], were you homeless or living in a group home (including now)? No 09/25/2024 Education Answer Date Recorded What is the highest level of school you have completed or the highest degree you have received? Master's degree (e.g., MA, MS, Jennifer, MEd, YEAST SUPERVISOR, NILAM) 03/19/2023 Comments Unknown Sex and [...] [facility] [facility] [address] [facility] 160 [place] [address] Penelope Walker, INLAYER SILVER-TRAFFIC WORKFORCE REPRESENTATIVE [address] [facility] 160 [place] [address] documented as of this encounter Visit Diagnoses Not on filedocumented in this encounter Care Teams Guest Services Representative Relationship Specialty Start Date End Date Blane Beavers DO [address] [facility] 230 [place] [address] PCP - General Family Medicine 02/09/23 Penelope Walker, INLAYER SILVER-TRAFFIC WORKFORCE REPRESENTATIVE [address] [facility] 160 [place] [address] Nurse Practitioner Behavioral Health 07/28/22 documented as of this encounter
--- OUTSIDE RECORDS SUMMARY | 2024-10-23 14:50 | XMS_ITS | Encounter Summary ---
Author Organization [facility] Address [address] [place] [address] Care Team Providers Care Computer Science Instructor Name Role Phone ConsueloAlexandrePenelope valladares Karina HUDSON-HIRED HAND Unavailable Blane Beavers DO Primary Care Provider Encounter Details Date Type Department Care Team (Late st Contact Info) Description 09/19/2024 Abstract [facility] [address] [facility] [address] [place] [address] Blane Beavers DO [address] [facility] [address] [place] [address] Social History Tobacco Use Types Packs/Day Years [...] any clubs o r organizations such as tenriism groups, unions, fraternal or athletic groups, or [...] Recorded Patient Health Questionnaire-2 Score 1 12/17/2023 [facility] of Occupat ional Health [...] Master's degree (e.g., MA, MS, Jennifer, MEd, PROCESS DEVELOPMENT TECHNICIAN, NILAM) 03/19/2023 Comments Unknown Sex and [...] Visit [facility] [place] [facility] 112 [facility] [address] [place] [address] Penelope Walker APRN-HIRED HAND 112 [facility] [address] [place] [address] documented as of this encounter Visit Diagnoses Not on filedocumented in this encounter Care Teams Computer Science Instructor Relationship Specialty Start Date End Date Blane Beavers DO [address] [facility] 230 [place] [address] PCP - General Family Medicine 02/09/23 Penelope Walker APRN-HIRED HAND [address] [facility] 160 [place] [address] Nurse Practitioner Behavioral Health 07/28/22 documented as of this encounter
--- OUTSIDE RECORDS SUMMARY | 2024-10-23 14:50 | XMS_ITS | Encounter Summary ---
Author Organization [facility] Address [address] [place] [address] Care Team Providers Care Patent Searcher Name Role Phone ConsueloAlexandrePenelope valladares Karina HUDSON-MEDICAL INSURANCE CLAIMS SPECIALIST Unavailable Blane Beavers DO Primary Care Provider Encounter Details Date Type Department Care Team (Late st Contact Info) Description 09/26/2024 Abstract [facility] [address] [facility] [address] [place] [address] Blane Beavers DO [address] [facility] Chu [address] [place] [address] Social History Tobacco Use Types Packs/Day Years [...] often do you attend chur ch or tenriism services? Never 09/25/2024 Do you belong to any clubs o r organizations such as uatsdin groups, unions, fraternal or athletic groups, or [...] Recorded Patient Health Questionnaire-2 Score 1 12/17/2023 [facility] - Occupational Stress Questionnaire [...] a long term (including now)? No 02/09/2023 Housing Stability Vital [...] were you homeless or living in a long term (including now)? No 09/25/2024 Education Answer Date Recorded What is the highest level of school you have completed or the highest degree you have received? Master's degree (e.g., MA, MS, Jennifer, MEd, BAGGAGE SCREENER, NILAM) 03/19/2023 Comments Unknown Sex and Gender [...] Office Visit [facility] [place] [facility] 112 [facility] [address] [place] [address] Penelope Walker, WILDLIFE CONSERVATION OFFICER-MEDICAL INSURANCE CLAIMS SPECIALIST 112 [facility] 160 [place] [address] documented as of this encounter Visit Diagnoses Not on filedocumented in this encounter Care Teams Patent Searcher Relationship Specialty Start Date End Date Blane Beavers DO [address] [facility] 230 [place] [address] PCP - General Family Medicine 02/09/23 Penelope Walker, WILDLIFE CONSERVATION OFFICER-MEDICAL INSURANCE CLAIMS SPECIALIST 112 [facility] 160 [place] [address] Nurse Practitioner Behavioral Health 07/28/22 documented as of this encounter
== END 2024-10-23 14:46 | disposition home or self-care (01) ==
LOC: PST 14:46
PROVIDERS: PCP Family Medicine; Visit Provider Urology
DX: Z01.818 Encounter for other preprocedural examination (principal); N20.0 Calculus of kidney

== ENCOUNTER 2024-10-30 08:38 | Day surgery (SDC) | payer OTHER, SELFPAY ==
[2024-10-30] VITALS (9 sets, daily range): BP systolic 121–141; BP diastolic 79–100; PULSE 69–92; TEMP 36.1; O2SAT 92–96; BMI 32.8
--- NOTE | 2024-10-30 | XR_ITS ---
[address] [address] Patient Name: LEONA GOODSON MRN: [id number] date: 1995 Sex: F Assigned Patient Location: [facility] Current Patient Location: Accession/Order Number: [id number] Exam Date: 10/30/2024 10:24 Report Date: 10/30/2024 14:08 At the request of: HAIDER SOUZA MD Procedure: XR urethrogram retrograde Intraoperative study. Reason for exam: Right ureteral stent in place. Findings: 1 images were obtained intraoperatively. Cannulation of the right collecting system is seen. Cumulative Air Kerma in mGy: 37.18 mGy XR/XR urethrogram retrograde Impression: Intraoperative study. Impression dictated by: José Manuel Sim Jr., D.O. 10/30/2024 2:08 PM Dictation Location: [place] [address] Electronically authenticated by: [id number] Y Date: 10/30/2024 14:08
[2024-10-30] MEDS: FAMOTIDINE/PF 20 MG/2 ML VIAL IV (09:20)
[2024-10-30] MEDS: SCOPOLAMINE 1 MG/3 DAYS TRANSDERM PATCH 1 PATCH TD (09:21)
[2024-10-30] MEDS: CEFAZOLIN SODIUM 2 GM/50 ML D5W PREMIX IV (10:14)
[2024-10-30] MEDS: IOHEXOL 300 MG/ML - 50 ML BTL INJ (10:56)
--- NOTE | 2024-10-30 12:27 | P.URON_ITS ---
Urology Surgery Operative Note Operative Note Procedure Date: 10/30/24 Time Out Performed: yes Pre-op Diagnosis: Right nephrolithiasis status post ureteroscopic laser lithotripsy and right stent placement. Post-op Diagnosis: same as pre-op Procedures performed: 1. Cystoscopy. 2. Stent removal. 3. Right ureteroscopy. 4. Right ureteral stone basket extraction. 5. Right retrograde pyelogram. 6. Right pyeloscopy. 7. Thulium laser lithotripsy of multiple right renal calculi. 8. Placement of 7 Bangladeshi variable length right ureteral stent Anesthesia: JANET Primary Surgeon: Jesse Ba Complications: None Estimated blood loss (mL): 5 Findings: 1. Right proximal ureteral calculus. 2. Copious fragmented small renal stone pieces. 3. A few 4 to 6 mm stones in the lower pole. Specimens: Right proximal ureteral calculus Drains: 7 Bangladeshi variable length right ureteral stent Indications for Procedures: This lady had a large stone burden of 2-1/2 to 3 cm in her right kidney for which she underwent ureteroscopic laser lithotripsy and stent placement September 11, 2024. She had a few small stone pieces remaining and copious stone debris. Postoperatively, she developed a subcapsular hematoma and she had thrombocytosis. She was anticoagulated and evaluated by a apple press operator. Her platelets are back down near normal. Her apple press operator felt it was perfectly safe to proceed with surgery. She now presents for clean up ureteroscopic laser lithotripsy and stent change. She has signed an informed consent after risks were explained. Detailed description of Procedure: The patient was brought to the operating room and placed on the operating room table in the supine position. SCDs were placed on the lower extremities and turned on and functioning during the entire case. Timeout was done by all parties in the room. We all agreed upon the patient's identification and the planned procedures for this patient. Genn. anesthesia was then administered. The patient was then repositioned into the modified dorsal lithotomy position. All pressure points were satisfactorily padded. Genitalia were sterilely prepped and draped in usual fashion. I started by passing a 22 Bangladeshi Olympus cystoscope per urethra and into the bladder. Panendoscopy in the bladder revealed no tumors stones or lesions. The stent was moderately encrusted. A flexible grasper grasped the end of the stent and it was brought out the urethral meatus. I was able to pass a wire through the stent up into the kidney and remove the old stent. I then slid a 10/12 Bangladeshi ureteral access sheath over the wire up to the L5 position. The wire and stylette were removed. I then passed a flexible ureteroscope through the access sheath and into the ureter. As I ascended up the ureter I found a sizable stone at the proximal ureter. I used a 0 tip nitinol basket and I was able to get it down and out. It was sent for stone analysis. I then ascended further up the ureter and then at the UPJ noticed quite a bit of stone in the debris adhered to the wall of the ureter. A 200 Angstrom laser fiber was used and this was lasered off. I then entered into the upper mid and lower pole calyces. Visibility was patchy due to poor irrigation flow. The larger sheaths were on backorder. I found several areas of small stones which I lasered with the thulium laser at 10 W on the dusting mode. Most of the stone burden was in the lower pole. I spent quite a bit of time lasering all stone pieces and there were 2 stones that were approximately 5 to 6 mm which were fully dusted. Upon completion, all we could appreciate was laser dust and no true stones. Fluoroscopically we saw no true formed stones remaining. The wire was then passed through the scope into the kidney and the scope and sheath were removed. Cystoscope was backloaded over the wire and passed into the bladder. I then slid a 7 Bangladeshi variable length stent over the wire up into the kidney. The wire was removed and there were good curls in the kidney and in the bladder. Bladder was drained of its contents and the scope was removed. The anesthetic was then reversed. She was then transferred to a [facility] bed and wheeled to PACU in stable condition.
[2024-10-30] MEDS: SOLIFENACIN SUCCINATE 10 MG TABLET PO (12:58)
--- NOTE | 2024-10-30 13:43 | PC.NURSE ---
Patient urinated as indicated prior to discharge. Patient is in stable condition denies any pain at discharge.
== END 2024-10-30 13:50 | disposition home or self-care (01) ==
LOC: SURGOUT 08:39
PROVIDERS: PCP Family Medicine; Visit Provider Urology
PROC: (CPT 918; principal; 2024-10-30 10:10)
DX: N20.0 Calculus of kidney (principal); D66 Hereditary factor VIII deficiency; F17.290 Nicotine dependence, other tobacco product, uncomplicated; F41.9 Anxiety disorder, unspecified; F32.A Depression, unspecified
CPT/HCPCS: 52356; 36415; 74420; 82365; 84703; 99999; J0690; J1100; J1885; J2250; J2405; J2704; J3010; J3490; Q9967

== ENCOUNTER 2024-12-22 21:48 | Emergency (ER) | payer OTHER, SELFPAY ==
--- OUTSIDE RECORDS SUMMARY | 2018-09-25 08:00 | XMS_ITS | Continuity of Care Document ---
Author Organization [facility] Address [address] [facility] [place] [address] Phone Care Team Providers Care Customer Success Representative Name Role Phone Unavailable Unavailable Unavailable Procedures Procedure Date Void Venipuncture Results Test Name Date and Time Measure Units Reference Range Abnormal Flag Status Comments Panel Description: Rubella IgG Lvl Final SPECIMEN: source: Blood COMMENT ORDERING PROVIDER: LETITIA LUCAS Final COMMENT PATIENT TYPE: P Final Rubella IgG Lvl 019 01:21:09 40.00 Internat ional_Un it/m Final Reference range for Rubella IgG Abs: < 5 IU/mL NONREACTIVE- Antibody level may be insufficient to provide protection against Rubella virus infection. 5 - 9 IU/mL INDETERMINATE - Suggest repeat testing on a new specimen within 1-2 weeks may help clarify Rubella antibody atatus. > 9 IU/mL REACTIVE - Indicates current or past infection or vaccination. Panel Description: Rubeola IgG Lvl Final SPECIMEN: source: Blood COMMENT ORDERING PROVIDER: LETITIA LUCAS Final COMMENT PATIENT TYPE: OUTPATIENT Final Rubeola IgG Lvl 019 13:53:55 1.65 Final <0.50 No Rubeo la IgG antibody detected. > or = 0.50 to <0.70 Equivocal-Sugges t repeat testing on a new specimen.> or = 0.70 Positive-Rubeola IgG antibody detected.Patient s with a current primary infection of measles (Rubeola) may not begin producing measureable IgG until several days after infection. Panel Description: Varicella-Zoster Virus Antibo dy (IgG) Final SPECIMEN: source: Blood COMMENT ORDERING PROVIDER: LETITIA LUCAS Final COMMENT PATIENT TYPE: OUTPATIENT Final Varicella-z kane IgG Abs 17:06:30 2771.00 Index < 135.00 H Final Index Interpretation ----- < 135.00 Negative - Antibody not detected 135.00 - 164.99 Equivocal > or = 165.00 Positive - Antibody detected A positive result indicates that the patient has antibody to VZVbut does not differentiate between an active or past infection. The clinical diagnosis must be interpreted in conjunction with the clinical signs and symptoms of the patient. This assay reliably measures immunity due to previous infection but may not be sensitive enough to detect antibodies induced by vaccination. Thus, a negative result in a vaccinated individual does not necessarily indicate susceptibility to VZV infection. A more sensitive test for vaccination-hollis roya immunity is Varicella Zoster Virus Antibody Immunity Screen, ACIF. @ Test Performed By: [facility] Boby Casey M.D., Ph.D., Stock And Station Agent [address] [place] [id number] [facility] #[id number] Panel Description: Mumps IgG Ab Final SPECIMEN: source: Blood COMMENT ORDERING PROVIDER: LETITIA LUCAS Final COMMENT PATIENT TYPE: OUTPATIENT Final Mumps IgG Abs 13:58:40 0.02 0.00-0.34 N Final <0.35 Negative - No Mumps IgG antibody detected. > or = 0.35 to <0.50 Equivocal-Sugges t repeat testing on a new specimen. > or = to 0.50 Positive-Mumps IgG antibody detected. Patients with a current primary infection of Mumps may not begin producing measureable IgG until several days after infection. Advance Directives Directive Yes / No Effective Date File Name No Information Encounters Encounter Description Practice Location Reason(s) For Visit Diagnoses Date Provider Providers Copied on Encounter [facility], [address] [facility], [place], [place], [id number], [place] tel:[phone] [facility] No Information No Information Family History Family Member Type Diagnosis Age At Onset No Information Payers Payer name Insurance type Covered republican ID Authoriza tion(s) No Information Social History Type Description Quantity Date Captured Comments Sex Female Smoking Status No Information Chief Complaint And Reason For Visit No Information Reason For Referral Reason For Referral No Information History Of Present Illness Encounter Date Complaint History Of Prese nt Illness No Information Functional Status Date Functional Assessmen t No Information Instructions Date Instruction Additional Infor mation No Information Assessments Type Assessment Date No Information Patient Care Teams Name Effective Dates (start - stop) Status Members No Information
--- OUTSIDE RECORDS SUMMARY | 2020-09-09 08:48 | XMS_ITS | Continuity of Care Document ---
Author Organization [facility] Address [address] [place] [address] Phone Care Team Providers Care Clinical Social Work Therapist Name Role Phone Dee Gonzalez Unavailable Unavaila ble Allergies, Adverse Reactions, Alerts Substance Reaction Status Criticality No Known allergies Medications Medication Instructions Dosage Effective Dates (start - stop) Status Comments 03/10 (28) 1 mg-20 mcg tablet take 1 tablet by oral route every day 1.00 tablet - Active Procedures Procedure Date IMMUNIZATION ADMIN FLU VAC NO PRSV 4 PATRICIA 3 YRS+ TB INTRADERMAL TEST UDS Exempt TB INTRADERMAL TEST IMMUNIZATION ADMIN, EACH ADD TDAP VACCINE >7 IM IMMUNIZATION ADMIN CCIIV4 VAC NO PRSV 0.5 ML IM UDS Exempt URINE TEST OFFICE/OUTPATIENT VISIT, EST OFFICE/OUTPATIENT VISIT, EST [facility] SPECIMEN HANDLING (GC/CHLAMYDIA) Apr Herpes Simplex Virus URINE TEST 03/10 Advance Directives Directive Yes / No Effective Date File Name No Information Encounters Encounter Description Practice Location Reason(s) For Visit Diagnoses Date Provider Providers Copied on Encounter [facility], [address] [place], [place], [id number], [place] tel:[phone] [facility] No Information 1 Maykel Price. [address] [place], [place], [address] , [place]. tel:[phone] [facility], [address] [place], [place], [id number], [place] tel:[phone] [facility] No Information 0 Caio Geller. [address] [place], [place], [id number] , [place]. tel: [phone] [facility], [address] [place], [place], [id number], [place] tel:[phone] [facility] for [facility] [address] [place], [place], [id number] , [place]. tel: [phone] [facility], [address] [place] [address], [id number], [place] tel:[phone] [facility] Encounter for screening for respiratory tuberculosis 9 [facility] DO Gauthier. [address] [place], [place], [id number] , [place]. tel: [phone] OFFICE/OUTPAT IENT VISIT, EST [facility], [address] [place], [place], [address], [place] tel:[phone] [facility] Initial Visit (chief complaint) control (chief complaint) Gynecological ExaminationOther specified contraceptive managementNeoplasm of uncertain behavior of other and unspecified female genital organs [facility] [address] [place], [place], [id number] , [place]. tel: [phone] Family History Family Member Type Diagnosis Age At Onset Mother Problem (finding) Alive and well Paternal grandfather Problem (finding) malignant neopl asm of lung Father Problem (finding) Alive and well Immunizations Vaccine Date Status Comments Flulaval/ Fluarix administered Source: Ne w Immunization Record Influenza administered Source: New Imm unization Record Tdap (Boostrix) administered Source: New Immunization Record Payers Payer name Insurance type Covered constitution party ID Authoriza tidaniel(s) [place] [facility]FC 190 [id number] Medicaid Wrap - [facility] [place] [id number] [place] [employer] [place] 190 [id number] [place] [employer] [place] 190 [id number] Medicaid Wrap - [facility] [place] [id number] Social History Type Description Quantity Date Captured Comments Alcohol Use Details Unknown Caffeine Use Details Unknown Tobacco Use Status No Information Smoking Status No Information Sex Female Sexual Orientation Straight or heterosexual Gender Identity Female Chief Complaint And Reason For Visit No [...]
[2024-12-22 22:00] VITALS: BP 155/90; PULSE 105; TEMP 36.8; O2SAT 99; BMI 32.9
--- OUTSIDE RECORDS SUMMARY | 2024-12-22 22:06 | XMS_ITS | Clinical Summary ---
Author Organization [facility] Address [address] [place] [id number] Care Team Providers Care Jumbo Operator Name Role Phone Unavailable Primary Care Provider Unavailabl e Allergies Active AllergyReactionsCriticalityNoted DateCommentsEtonogestrel-Ethinyl EstradiolOther: See Zqaivuwk46/15/2025 Medications MedicationSigDispense QuantityRefillsLast FilledStart DateEnd DateStatus sertraline (ZOLOFT) 50 mg tablet Take 50 mg by mouth once daily.5Active lamoTRIgine (LAMICTAL) 150 mg tablet Take 150 mg by mouth once daily.Active cariprazine (VRAYLAR) 3 mg capsule Take 3 mg by mouth once daily.Active hydrocodone/acetaminophen (NORCO ORAL) Take by mouth.0Active scopolamine (TRANSDERM-SCOP) patch 1.5 mg/72 hr (delivers 1 mg over 3 days) Apply 1 patch as directed.5Active Encounters DateTypeDepartmentCare KhbqUskitynejyt63/18/2025Telephone Hematology/Medical Oncology [facility] [place] [address] Marquita Rosario MD Patient Nvlqzl0010/03/2024 3:20 PM EDTOffice Visit Urology [address] [facility] [place] [address] Jose Townsend MD Calculus of kidney with calculus of ureter (Primary Dx); Postprocedural hematoma of a genitourinary system organ or structure following a genitourinary system procedure; Aspiration pneumonia, unspecified aspiration pneumonia type, unspecified laterality, unspecified part of lung (HCC); Thrombocytosis; Leukocytosis, unspecified type10/03/20244024Qjusfo80/14/2025Telephone Urology [address] [place] [address] Jose Townsend MD 09/30/2024Nurse Triage NURSE ADDICTIONS COUNSELOR [address] [place] [address] Marianne Sears, GEOFF Blurred Visionfrom Last 3 Months Immunizations ImmunizationAdministration DatesNext Dueinfluenza vaccine, unspecified thtzdoxeodz77/16/2024 Social History Tobacco UseTypesPacks/DayYears UsedDateSmoking Tobacco: Never AssessedArea Deprivation IndexAnswerDate RecordedNational Score (1-100), lower number is lower mesf014010/03/2024State Score (1-10), lower number is lower gnvf24410/03/2024 Data from: https://www.neighborhoodatlas.[facility]/. Last address used for eycxccmtjpf[address] [facility] [address]/03/2024CommentsUnknownSex and Gender InformationValueDate RecordedSex Assigned at BirthNot on fileLegal SexFemale 03/16/2023 11:25 AM ESTGender IdentityNot on fileSexual OrientationNot on file Last Filed Vital Signs Vital SignReadingTime TakenCommentsBlood Ghbfwgsb832/78010/03/2024 3:51 PM EDT Zpcva484310/03/2024 3:51 PM EDTTemperature--Respiratory Rate--Oxygen Saturation-- Inhaled Oxygen Concentration--Wzgtdh50.6 kg (180 lb)10/03/2024 3:51 PM EDTHeight --Body Mass Index-- Plan of Treatment Health MaintenanceDue DateLast DoneCommentsAnxiety Awyvtjblv19/30/2014Depression Ixbmwbxrr81/30/2014HIV Hgxpskfyk99/30/2014Hepatitis C Klmdhsgee28/30/2014 Cervical Cancer Hmgbwybmi52/30/2017HPV Vaccine (1 - 3-dose SCDM series) 3Covid-19 Vaccine ( - season)511/, 12/08/2020 Influenza Vaccine (#1)501/, 12/22/2022, 11/25/2019, Additional history existsDTaP,Tdap,Td Vaccine (9 - Td or Tdap)9103/27/2018, 10/09/2017, 10/23/2014, Additional history existsHepatitis B VaccineCompleted 07/01/1996, 02/29/1996, 1995 Insurance * Guarantor: Emma Mahan TypeRelation to PatientDate of BirthPhone Billing AddressPersonal/LugmzzUqae74/30/[address] [address]
--- OUTSIDE RECORDS SUMMARY | 2024-12-22 22:06 | XMS_ITS | Clinical Summary ---
Author Organization [facility] Address [address] [place] [address] Care Team Providers Care Report Writer Name Role Phone Unavailable Primary Care Provider Unavailabl e Source Comments The following information is NOT included in Care Everywhere downloads:Psychiatric notes, ECG results, Cardiac Rehab notes, Pulmonary Function notes, data from SmartForms (includes but not limited toPregnancy data,audiograms, eye exams, pre-surgical evaluation notes, well-child exam data).[facility] Encounters DateTypeDepartmentCare PuprPyphbowdiia97/04/2025Telephone [facility] Care Management/Patient Access [address] [place] [address] Tai Ferguson MD from Last 3 Months Social History Tobacco UseTypesPacks/DayYears UsedDateSmoking Tobacco: Never Assessed CommentsUnknownSex and Gender InformationValueDate RecordedSex Assigned at Not on fileLegal FelVpllbh55/04/2025 1:34 PM EDTGender IdentityNot on fileSexual OrientationNot on file Last Filed Vital Signs Vital SignReadingTime TakenCommentsBlood Wbgmyosh242/7108 3:34 AM EDT Aisdt8296 3:34 AM CRBXfrzpwdawxf45.7 ??C (99.8 ??F)09/24/2024 3:34 AM EDTRespiratory Dusv3665 3:34 AM EDTOxygen Hfwcqdiccf05%09/24/2024 3:34 AM EDTRAInhaled Oxygen Concentration--Weight--Height--Body Mass Index-- Plan of Treatment Health MaintenanceDue DateLast DoneCommentsHIV Test12/18/2010Hepatitis C Ochoujzy16/30/2014Tdap Zyzosgk7412/18/2013Hepatitis A (HAV) Vaccine (optional start 19+ years)12/18/2014Hepatitis B (HBV) Vaccine (1 of 3 - 19+ 3-dose series) 12/18/2014Pap Smear12/18/2016HPV Vaccine (optional start 27-45 years)12/18/2022 COVID-19 Vaccine (1 - 2024- season)2024Influenza Vaccine (#1)2024 Shingles (RZV) Vaccine (1 of 2)12/18/2045MammographyDiscontinuedPneumococcal Vaccine(s)Aged OutNo longer eligible based on patient's age to complete this topic Insurance
--- OUTSIDE RECORDS SUMMARY | 2024-12-22 22:06 | XMS_ITS | Clinical Summary ---
Author Organization [facility] Address [address] [place] [address] Care Team Providers Care Salad Counter Attendant Name Role Phone Penelope Walker APRN-SOFTWARE QUALITY AUTOMATION ENGINEER Unavailable Blane Beavers DO Primary Care Provider [phone] Allergies Active AllergyReactionsCriticalityNoted DateCommentsEtonogestrel-Ethinyl FgtvsozlhCkqvu52/13/2023 Severe depression Medications MedicationSigDispense QuantityRefillsLast FilledStart DateEnd DateStatus hydrOXYzine pamoate (Vistaril) 25 MG capsule Indications:AnxietyTake 2 capsules (50 mg) by mouth every 8 (eight) hours if needed for anxiety 60 capsule 5Active sertraline (Zoloft) 50 MG tablet Indications:Bipolar 2 disorder (HCC)Take 1 tablet (50 mg) by mouth Daily 90 tablet ctive lamoTRIgine (LaMICtal) 150 MG tablet Indications:Bipolar 2 disorder (HCC)Take 1 tablet (150 mg) by mouth Daily 90 tablet ctive Cariprazine HCl (Vraylar) 3 MG capsule Indications:Bipolar 2 disorder (HCC)Take 1 capsule by mouth Daily 90 capsule ctive SEMAGLUTIDE PO Take by mouth11/27/2024Discontinued(Therapy completed) sertraline (Zoloft) 50 MG tablet Indications:Bipolar 2 disorder (HCC)Take 1 tablet (50 mg) by mouth Daily 90 tablet Discontinued(Reorder) lamoTRIgine (LaMICtal) 150 MG tablet Indications:Bipolar 2 disorder (HCC)Take 1 tablet (150 mg) by mouth Daily 90 tablet Discontinued(Reorder) docusate sodium (Colace) 100 MG capsule Take 100 mg by mouth 2 (two) times a day as needed for gtcwvagersty94/06/2025 11/27/2024Discontinued(Therapy completed) ketorolac (Toradol) 10 MG tablet Take 10 mg by mouth every 4 (four) hours if needed for moderate pain or mild painDiscontinued(Therapy completed) oxyCODONE (Roxicodone) 5 MG immediate release tablet Take 5 mg by mouth every 6 (six) hours if needed for severe pain or moderate painDiscontinued(Therapy completed) scopolamine (Transderm-Scop) 1 mg/72 hr patch [address] 1 patch on the skin every 3rd (third) dayDiscontinued (Therapy completed) hyoscyamine (Levsin) 0.125 MG SL tablet Take 0.125 mg by mouth every 6 (six) hours if needed for pxvkboss43/06/2025 11/27/2024Discontinued(Therapy completed) Cariprazine HCl (Vraylar) 3 MG capsule Indications:Bipolar 2 disorder (HCC)Take 1 capsule by mouth Daily 30 capsule Discontinued(Reorder) Active Problems ProblemNoted DateDiagnosed DateChronic lwegagxq64/08/2632Puafrov89/08/2025Kidney kjxxbx9209/26/2024Nausea and qzefgfat83/08/2025 Overview (09/26/2024): Outside Source Comment: Problem List clean-up per request of Phys. EHR Cmte Abnormal cytological findings in specimens from other organs, systems and oyidieb62/21/2023Cannabis abuse02/08/2023ervical high risk HPV (human papillomavirus) test qibgcmyb26/21/1612Npryqmygzr84/21/2023isorder of female genital organ02/08/2023Menstrual qwvyubqd84/21/2023ipolar 2 ixcsxcnz84/13/2023 Zwfeveq4507/01/2022 Encounters DateTypeDepartmentCare SonhWctujpafefo69/09/2025 3:00 PM EDTOffice Visit [facility] [address] [facility] [address] [place] [address] Penelope Walker, CAREER DEVELOPMENT DIRECTOR-SOFTWARE QUALITY AUTOMATION ENGINEER Bipolar 2 disorder (HCC); Tymzrbx5411/27/2024amboo flowsheet [facility] [address] [facility] [address] [place] [address] Penelope Walker, CAREER DEVELOPMENT DIRECTOR-SOFTWARE QUALITY AUTOMATION ENGINEER 11/27/20243547Usaevh83/26/2025Patient Outreach [facility] [address] [facility] [place] [address] Sunday, Dayana, SYSTEMS INTEGRATION MANAGER 11/12/2024bstract [facility] [address] [facility] [address] [place] [address] Blane Beavers, DO 11/06/2024Refill [facility] [address] [facility] [address] [place] [address] Penelope Walker, CAREER DEVELOPMENT DIRECTOR-SOFTWARE QUALITY AUTOMATION ENGINEER Bipolar 2 disorder (HCC)10/17/2024External Result Encounter [facility] External Department Unsolicited Blane Severino, DO 10/10/2024bstract [facility] [address] [facility] [address] [place] [phone] Blane Beavers, DO 09/30/2024External Result Encounter [facility] External Department Unsolicited Blane Severino, DO 09/30/2024External Result Encounter [facility] External Department Unsolicited Blane Severino, DO 09/30/2024External Result Encounter [facility] External Department Unsolicited Blane Severino, DO 09/30/2024External Result Encounter [facility] External Department Unsolicited Blane Severino, DO 09/30/2024External Result Encounter [facility] External Department Unsolicited Blane Severino, DO 09/30/2024External Result Encounter [facility] External Department Unsolicited Blane Severino, DO 09/30/2024External Result Encounter [facility] External Department Unsolicited Blane Sveerino, DO 09/26/2024bstract [facility] [address] [place] [address] [place] [address] Blane Beavers, DO 09/26/2024bstract [facility] [facility] [address] [place] [address] [place] [phone] Blane Beavers, DO 09/26/2024Patient Outreach [facility] [address] [place] [address] Beth Jha, GEOFF 09/25/20243153Stafrm90/05/2025bstract [facility] [address] [place] [address] [place] [address] Blane Beavers, DO 09/23/2024bstract [facility] [address] [place] [address] [place] [address] Blane Beavers, DO 09/22/2024bstract [facility] [address] [place] [address] [place] [address] Blane Beavers, DO 09/22/2024bstract [facility] [address] [place] [place] [address] Blane Beavers, DO 09/22/2024bstract [facility] [address] [place] [address] [place] [address] Blane Beavers DO 5Abstract [facility] [address] [place] [place] [address] Blane Beavers DO from Last 3 Months Immunizations ImmunizationAdministration DatesNext DueDTaP, Xhbjzjnnkoc78/07/2002,01/15/1998, 07/01/1996,05/01/1996,02/29/1996Hep B, Adolescent or Zgsurchle36/13/1997, 02/29/1996,1995IPV04/25/2001,01/15/1998,05/01/1996,02/29/1996Influenza, Uyzujodshik46/03/2023,11/25/2019,01/24/2019Influenza, injectable, MDCK, preservative free, piotntvniwdn85/06/2019Influenza, injectable, quadrivalent 03/06/2023Influenza, injectable, quadrivalent, preservative free12/22/2022, 11/25/2019MMR03/06/2019,08/16/2001,04/06/1997PPD Test10/24/2022,05/09/2019, 05/02/2019,02/28/2019Polio, Whairmfkwzn69/07/2002,01/15/1998,05/01/1996, 02/29/1996Tdap103/27/2018,10/09/2017,10/23/20143131Qdwavmrzw81/08/2001 Family History Medical HistoryRelationNameCommentsHypertensionFatherBrianTesticular cancer FatherBrianDiabetesMotherRebeccaDepressionMother's BrotherDJSchizophrenia Mother's BrotherDJCrohn's diseaseMother's SisterLung cancerPaternal Grandfather YqqybdczByunPicwjzPjmzgpnpZadfyyj6Pupkqmbc5GgjopoZqhqzJcgjsQtsopiPcphzamRhrzq Mother's BrotherDJMother's SisterPaternal GrandfatherSon2 Social History Tobacco UseTypesPacks/DayYears UsedDateSmoking Tobacco: NeverSmokeless Tobacco: Never Tobacco Cessation:Counseling Given: Not Answered Alcohol UseStandard Drinks/WeekCommentsNot Currently0 (1 standard drink = 0.6 oz pure alcohol)80-200 mg of caffiene, energy iddgolU2405 Health LiteracyAnswerDate RecordedHow often do you need to have someone help you when you read instructions, pamphlets, or other written material from your doctor or pharmacy? Never09/25/2024Humiliation, Afraid, Rape, and Kick questionnaireAnswerDate RecordedWithin the last year, have you been afraid of your partner or ex-partner?No09/25/2024Within the last year, have you been humiliated or emotionally abused in other ways by your partner or ex-partner?No09/25/2024 Within the last year, have you been kicked, hit, slapped, or otherwise physically hurt by your partner or ex-partner?No09/25/2024Within the last year, have you been raped or forced to have any kind of sexual activity by your part ner or ex-partner?No09/25/2024Social Connection and Isolation PanelAnswerDate RecordedIn a typical week, how many times do you talk on the phone with family, friends, or neighbors?More than three times a week09/25/2024How often do you get together with friends or relatives?Three times a week09/25/2024How often do you attend adventism or restorationism services?Never09/25/2024Do you belong to any clubs or organizations such as adventism groups, unions, fraternal or athletic groups, or school groups?No09/25/2024How often do you attend meetings of the clubs or organizations you belong to?Never09/25/2024re you , , , , never , or living with a partner?Xgtgyde3209/25/2024UDIT-C AnswerDate RecordedQ1: How often do you have a drink containing alcohol?Never 09/25/2024Q2: How many drinks containing alcohol do you have on a typical day when you are drinking?Patient does not drink09/25/2024Q3: How often do you have six or more drinks on one occasion?Never09/25/2024Overall Financial Resource Strain (CARDIA)AnswerDate RecordedHow hard is it for you to pay for the very basics like food, housing, medical care, and heating?Not very hard09/25/2024 PHQ-2AnswerDate RecordedPatient Health Questionnaire-2 [facility]848[facility] [place] [facility] Occup[facility] Health - Occupational Stress QuestionnaireAnswerDate RecordedDo you feel stress - tense, restless, nervous, or anxious, or unable to sleep at night because yourmind is troubled all the time - these days?Not at all 09/25/2024Exercise Vital SignAnswerDate RecordedOn average, how many days per week do you engage in moderate to strenuous exercise (like a brisk walk)?0 days 09/25/2024On average, how many minutes do you engage in exercise at this level? 10 min09/25/2024Hunger Vital SignAnswerDate RecordedWithin the past 12 months, you worried that your food would run out before you got the money to buymore. Never true09/25/2024Within the past 12 months, the food you bought just didn't last and you didn't have money to get more.Never true09/25/2024PRAPARE - TransportationAnswerDate RecordedIn the past 12 months, has lack of transportation kept you from medical appointments or from getting medications?No 09/25/2024In the past 12 months, has lack of transportation kept you from meetings, work, or from getting things needed for daily living?No09/25/2024 Housing Stability Vital SignAnswerDate RecordedIn the last 12 months, was there a time when you were not able to pay the mortgage or rent on time?Yes02/09/2023 In the last 12 months, how many places have you lived?In the last 12 months, was there a time when you did not have a steady place to sleep or slept in ashelter (including now)?No02/09/2023Housing Stability Vital SignAnswerDate RecordedIn the last 12 months, was there a time when you were not able to pay the mortgage or rent on time?No09/25/2024In the past 12 months, how many times have you moved where you were living?t any time in the past 12 months, were you homeless or living in a care home (including now)?No09/25/2024 EducationAnswerDate RecordedWhat is the highest level of school you have completed or the highest degree you have received?Master's degree (e.g., MA, MS, Jennifer, MEd, WATER GAS OPERATOR, NILAM)4CommentsUnknownSex and Gender Information ValueDate RecordedSex Assigned at BirthNot on fileLegal BvmJkpqzc74/15/2023 6:35 PM EDTGender IdentityNot on fileSexual OrientationNot on fileOccupationIndustry Job Start DateJob End DateNot on fileNot on fileNot on fileNot on file Last Filed Vital Signs Vital SignReadingTime TakenCommentsBlood Apadxsdd275/8611/27/2024 3:00 PM EDT Criht086711/27/2024 3:00 PM RMWWhinfaazuwb32.3 ??C (97.4 ??F)04/08/2024 9:02 AM ESTRespiratory Rate--Oxygen Xrezufklrb66%04/08/2024 9:02 AM ESTInhaled Oxygen Concentration--Wyudgj06.6 kg (180 lb)11/27/2024 3:00 PM LTSAvqbzt338.5 cm (5' 2 )04/08/2024 9:02 AM ESTBody Mass Index32.9204/08/2024 9:02 AM EST Plan of Treatment DateTypeDepartmentCare Team (Latest Contact Info)Qwkcsogcuch51/20/2025 1:00 PM ESTOffice Visit [facility] [address] [facility] [address] [place] [address] Penelope Walker APRN-SOFTWARE QUALITY AUTOMATION ENGINEER [address] [facility] [address] [place] [address] Health MaintenanceDue DateLast DoneCommentsVaricella Vaccines (2 of 2 - 2-dose childhood series)HPV Vaccines (1 - 3-dose SCDM series) 12/18/2022OVID-19 Vaccine ( season), 12/08/2020 Influenza Vaccine (#1)501/, 12/22/2022, 12/22/2022, Additional history existsDTaP/Tdap/Td Vaccines (9 - Td or Tdap)912/07/2018, 10/09/2017, 10/23/2014, Additional history existsHepatitis B VaccinesCompleted 07/01/1996, 02/29/1996, 1995IPV SrsfrjedCkxphcxqi59/07/2002, 04/25/2001, 01/15/1998, Additional history existsMMR KyhqvmltLljiqapng76/16/2020, 08/16/2001, 04/06/1997HIB VaccinesAged OutNo longer eligible based on patient's age to complete this topicHepatitis A VaccinesAged OutNo longer eligible based on patient's age to complete this topicMeningococcal B VaccineAged OutNo longer eligible based on patient's age to complete this topicMeningococcal VaccineAged OutNo longer eligible based on patient's age to complete this topicPneumococcal Vaccine: Pediatrics (0 to 5 Years) and At-Risk Patients (6 to 64 Years)Aged Out No longer eligible based on patient's age to complete this topicRotavirus VaccinesAged OutNo longer eligible based on patient's age to complete this topic Procedures Procedure NamePriorityDate/TimeAssociated DiagnosisCommentsCBC WITH AUTO TQZPLUDTNBUTMucqqqn81/29/2025 2:10 PM EDT FR KAPPA/LAMBDA LTC ULVEZWpoupgk35/12/2025 10:30 AM EDT PATHOLOGIST SLIDE REVIEW ([facility])Omdqtra3209/30/2024 10:30 AM EDT COMPREHENSIVE METABOLIC ZKTCELozqhkm66/12/2025 10:30 AM EDT SCAN AND LNXEkmrtba76/12/2025 10:30 AM EDT JOSHUA 2 KUAVMKKLLJZroxzmh51/12/2025 10:29 AM EDT IMMUNOFIXATION,SERUM ([facility])Kainekb1209/30/2024 10:29 AM EDT PROTEIN ELECTROPHORESIS, NFPECZpzqwsa76/12/2025 10:29 AM EDT ZFYHAARDOydfdzf82/12/2025 10:29 AM EDT IRON AND TOTAL IRON BINDING BXMZONETAdxavpi76/12/2025 10:29 AM EDT LACTATE PHWUBGLDBUTEPGalncmf15/12/2025 10:29 AM EDT from Last 3 Months Results * (ABNORMAL) CBC auto differential (10/17/2024 2:10 PM EDT)ComponentValueRef RangeTest MethodAnalysis TimePerformed AtPathologist SignatureWBC9.43.8 - 11.6 [CFU]/mL10/17/2024 2:31 PM [facility] CtrUNCORRECTED WHITE BLOOD COUNT9.43.8 - 11.6 10*3/uL10/17/2024 2:31 PM [facility] CtrRBC4.323.60 - 5.00 10*6/uL10/17/2024 2:31 PM [facility] LjnFELPPFPRYY05.6(L)11.8 - 15.4 g/dL10/17/2024 2:31 PM [facility] IwqMPUZDZYKKT47.534.0 - 46.4 %10/17/2024 2:31 PM [facility] LgrKYY74.8(L)80 - 100 fL10/17/2024 2:31 PM [facility] TltMIH38.924.7 - 34.3 pg10/17/2024 2:31 PM [facility] OiqEIUL67.732.0 - 35.0 g/dL10/17/2024 2:31 PM [facility] CtrRED CELL DISTRIBUTION WIDTH, RDW18.9(H)11.9 - 15.3 % 10/17/2024 2:31 PM [facility] CtrPLATELET OEZQU124(H)150 - 450 10*3/uL10/17/2024 2:31 PM [facility] CtrMEAN PLATELET VOLUME, MPV7.36.3 - 10.7 fL10/17/2024 2:31 PM [facility] CtrNEUTROPHILS, %54.0. %10/17/2024 2:31 PM [facility] Ctr LYMPHOCYTES, %34.2. %10/17/2024 2:31 PM [facility] Ctr MONOCYTE/MACROPHAGE, %6.4. %10/17/2024 2:31 PM [facility] CtrEOSINOPHILS, %4.4. %10/17/2024 2:31 PM [facility] Ctr BASOPHILS, %1.0. %10/17/2024 2:31 PM [facility] CtrNRBC0.00 - 0.5 /100{WBC}10/17/2024 2:31 PM [facility] Ctr NEUTROPHILS5.11.8 - 7.7 10*3/10/17/2024 2:31 PM [facility] CtrLYMPHOCYTES3.21.00 - 4.8 10*3/10/17/2024 2:31 PM [facility] CtrMONOCYTES0.60.0 - 0.8 10*3/10/17/2024 2:31 PM EDT [facility] CtrEOSINOPHILS0.40.0 - 0.45 10*3/10/17/2024 2:31 PM [facility] CtrBASOPHILS0.10.0 - 0.2 10*3/10/17/2024 2:31 PM [facility] CtrSpecimen (Source)Anatomical Location / LateralityCollection Method / VolumeCollection TimeReceived TimeBlood (Blood)10/17/2024 2:10 PM EDT10/17/2024 2:18 PM EDT Narrative Authorizing ProviderResult TypeResult StatusBlane Severino DOLAB BLOOD ORDERABLESFinal ResultPerforming OrganizationAddressCity/State/ZIP CodePhone Number [facility] [address] [place] [address], [facility] [address] [place] [address] * FR KAPPA/LAMBDA LTC URINE (09/30/2024 10:30 AM EDT)ComponentValueRef RangeTest MethodAnalysis TimePerformed AtPathologist SignatureFREE KAPPA LIGHT CHAINS, LCBLE418.801.17 - 86.46 mg/L10/02/2024 6:36 AM EDTFIRELANDSFREE LAMBDA LT CHAINS, SWQZA512.240.27 - 15.21 mg/L10/02/2024 6:36 AM EDTFIRELANDS KAPPA/LAMBDA RATIO 24 HR UR3.981.83 - 14.2608 6:36 AM EDTFIREWASHINGTON RURAL [facility] Comment: Performed at: ??BN - [facility] [address] ??[id number] Customer Account Representative: Dov López MD, Phone: ??[phone] Specimen (Source)Anatomical Location / LateralityCollection Method / Volume Collection TimeReceived TimeUrineTopography unknown / Vzxxxxu1509/30/2024 10:30 AM EDT09/30/2024 10:30 AM EDT Narrative Authorizing ProviderResult TypeResult StatusTimuzair Severino DOLAB BLOOD ORDERABLESFinal ResultPerforming OrganizationAddressCity/State/ZIP CodePhone Number [address] [address], * (ABNORMAL) SCAN AND CBC (09/30/2024 10:30 AM EDT)ComponentValueRef RangeTest MethodAnalysis TimePerformed AtPathologist OgelqaedgYQZ12.3(H)3.8 - 11.6 [CFU]/mL09/30/2024 11:34 AM [facility] CtrUNCORRECTED WHITE BLOOD COUNT18.3(H)3.8 - 11.6 10*3/uL09/30/2024 11:34 AM [facility] CtrRBC4.133.60 - 5.00 10*6/uL09/30/2024 11:34 AM [facility] VtvLCNYTMNXRD29.9(L)11.8 - 15.4 g/dL09/30/2024 11:34 AM EDT [facility] VwpFSBOKYPNMM68.6(L)34.0 - 46.4 %09/30/2024 11:34 AM [facility] NagCOH96.1(L)80 - 100 fL09/30/2024 11:34 AM [facility] SojOYH97.424.7 - 34.3 pg09/30/2024 11:34 AM [facility] WdeGNZC47.432.0 - 35.0 g/dL09/30/2024 11:34 AM [facility] CtrRED CELL DISTRIBUTION WIDTH, RDW17.2(H)11.9 - 15.3 %09/30/2024 11:34 AM [facility] CtrPLATELET COUNT1,095 (HH)150 - 450 10*3/uL09/30/2024 11:36 AM [facility] Ctr Comment: Critical value result called at 1136 on 09/30/24 MEAN PLATELET VOLUME, MPV7.06.3 - 10.7 fL09/30/2024 11:34 AM [facility] CtrNEUTROPHILS, %75.2. %09/30/2024 12:13 PM [facility] CtrLYMPHOCYTES, %17.1. %09/30/2024 12:13 PM [facility] CtrMONOCYTE/MACROPHAGE, %5.8. %09/30/2024 12:13 PM [facility] CtrEOSINOPHILS, %1.1. %09/30/2024 12:13 PM [facility] CtrBASOPHILS, %0.8. %09/30/2024 12:13 PM [facility] CtrNRBC0.10 - 0.5 /100{WBC}09/30/2024 12:13 PM [facility] CmnVINTDLAYOBX47.8(H)1.8 - 7.7 10*3/uL09/30/2024 12:13 PM [facility] CtrLYMPHOCYTES3.11.00 - 4.8 10*3/uL09/30/2024 12:13 PM [facility] CtrMONOCYTES1.1(H)0.0 - 0.8 10*3/uL09/30/2024 12:13 PM [facility] CtrEOSINOPHILS0.20.0 - 0.45 10*3/uL09/30/2024 12:13 PM [facility] CtrBASOPHILS0.10.0 - 0.2 10*3/uL 09/30/2024 12:13 PM [facility] CtrANISOCYTOSISModerate 09/30/2024 12:13 PM [facility] CtrPLATELET ESTIMATEIncreased Fsnofv1009/30/2024 12:13 PM [facility] CtrPLATELET MORPHOLOGY UbivivFnzwrb38/12/2025 12:13 PM [facility] CtrADDITIONAL CMRIBUYS54/12/2025 12:14 PM [facility] CtrComment: Thrombocytosis is often reactive in nature. ??If the thrombocytosis remains persistent and unexplained for greater than 3 months, recommend additional hematologic work-up or hematology consultation as clinically indicated. Slide referred to pathologist for review Specimen (Source)Anatomical Location / LateralityCollection Method / Volume Collection TimeReceived TimeBlood (Blood)09/30/2024 10:30 AM EDT09/30/2024 10:30 AM EDT Narrative Authorizing ProviderResult TypeResult StatusTimuzair Severino [facility] BLOOD ORDERABLESFinal ResultPerforming OrganizationAddressCity/State/ZIP CodePhone Number [facility] [address] [place] [address], [facility] [address] [place] [phone] * PATHOLOGIST SLIDE REVIEW ([facility]) (09/30/2024 10:30 AM EDT)ComponentValueRef RangeTest MethodAnalysis TimePerformed AtPathologist SignaturePATHOLOGIST SLIDE REVIEWOrdered Path Gegban4409/30/2024 12:16 PM [facility] CtrSpecimen (Source)Anatomical Location / LateralityCollection Method / VolumeCollection TimeReceived TimeOtherTopography unknown / Unknown 09/30/2024 10:30 AM EDT09/30/2024 10:30 AM EDT Narrative Authorizing ProviderResult TypeResult StatusTimuzair Severino DOLAB BLOOD ORDERABLESFinal ResultPerforming OrganizationAddressCity/State/ZIP CodePhone Number [place] [phone], [facility] [address] [place] [address] * (ABNORMAL) Comprehensive metabolic panel (09/30/2024 10:30 AM EDT)Component ValueRef RangeTest MethodAnalysis TimePerformed AtPathologist SignatureGlucose 9770 - 100 mg/dL09/30/2024 12:15 PM [facility] CtrComment: Random Glucose Reference Range is dependent on time and content of last meal. Glucose of more than 200 mg/dL in a nonstressed, ambulatory subject supports the diagnosis of Diabetes Mellitus. ADA recommended reference range QED583 - 25 mg/dL09/30/2024 12:15 PM [facility] CtrCREATININE 0.980.60 - 1.20 mg/dL09/30/2024 12:15 PM [facility] Ctr ESTIMATED GFR>60. 12:15 PM [facility] GocTxszua481 136 - 145 mmol/L09/30/2024 12:15 PM [facility] CtrPotassium, Bld5.13.5 - 5.1 mmol/L09/30/2024 12:15 PM [facility] Ctr Pvcloiff38876 - 107 mmol/L09/30/2024 12:15 PM [facility] Ctr Carbon Chyleia98.321.0 - 31.0 mmol/L09/30/2024 12:15 PM [facility] CtrAnion Gap14.86.0 - 15.008 12:15 PM [facility] CtrCalcium9.08.6 - 10.3 mg/dL09/30/2024 12:15 PM [facility] CtrTOTAL PROTEIN7.66.4 - 8.9 g/dL09/30/2024 12:15 PM [facility] CtrALBUMIN LEVEL3.3(L)3.5 - 5.7 g/dL09/30/2024 12:15 PM T [facility] CtrGLOBULIN4.3g/dL09/30/2024 12:15 PM [facility] CtrALBUMIN/GLOBULIN RATIO0.808 12:15 PM [facility] CtrBILIRUBIN,TOTAL0.50.3 - 1.0 mg/dL09/30/2024 12:15 PM EDT [facility] CtrASPARTATE AMINO MAKXCEFNQIF34(H)13 - 39 U/L 09/30/2024 12:15 PM [facility] CtrALANINE PQHAXTTPDRUMXGHL27 (H)7 - 52 U/L09/30/2024 12:15 PM [facility] CtrALKALINE OXAENJKUTDD824(H)34 - 104 U/L09/30/2024 12:15 PM [facility] CtrSpecimen (Source)Anatomical Location / LateralityCollection Method / Volume Collection TimeReceived TimeOtherTopography unknown / Bbztgrs7609/30/2024 10:30 AM EDT09/30/2024 10:30 AM EDT Narrative [facility] - 09/30/2024 12:15 PM EDT NON FASTING Authorizing ProviderResult TypeResult StatusBlane Severino DOLAB BLOOD ORDERABLESFinal ResultPerforming OrganizationAddressCity/State/ZIP CodePhone Number [facility] [address] [place] [address], [facility] [address] [place] [address] * JOSHUA 2 NEOGENOMIC (09/30/2024 10:29 AM EDT)ComponentValueRef RangeTest Method Analysis TimePerformed AtPathologist SignatureJAK 2 IKRRBXIKQS40/18/2025 8:58 AM [facility] CtrComment:See report. Scanned copy available in EMR.Specimen (Source)Anatomical Location / LateralityCollection Method / VolumeCollection TimeReceived TimeOtherTopography unknown / Fndgmnw1809/30/2024 10:29 AM EDT09/30/2024 10:29 AM EDT Narrative Authorizing ProviderResult TypeResult StatusBlane Severino DOFIRELANDSFinal ResultPerforming OrganizationAddressCity/State/ZIP CodePhone Number [facility] [address] [place] [address], [facility] [address] [place] [address] * IMMUNOFIXATION,SERUM ([facility]) (09/30/2024 10:29 AM EDT)ComponentValueRef Range Test MethodAnalysis TimePerformed AtPathologist SignatureIMMUNOFIXATION, SERUM Comment.10/02/2024 4:09 PM EDTFIREWASHINGTON RURAL HEALTH COLLABORATIVE & NORTHWEST RURAL HEALTH NETWORKComment:No monoclonality detected. IMMUNOGLOBULIN G1,175690 - 1,602 mg/dL10/02/2024 4:09 PM [facility] IMMUNOGLOBULIN A, [id number] - 352 mg/dL10/02/2024 4:09 PM EDTFCOU[facility]E [facility] IMMUNOGLOBULIN M, PAOPO96128 - 217 mg/dL10/02/2024 4:09 PM [facility] Comment: Performed at: ??CB - [facility] [address] ??[id number] Customer Account Representative: Jose Perea PhD, Phone: ??[phone] Specimen (Source)Anatomical Location / LateralityCollection Method / Volume Collection TimeReceived TimeOtherTopography unknown / Zcgsfiq7609/30/2024 10:29 AM EDT09/30/2024 10:29 AM EDT Narrative Authorizing ProviderResult TypeResult StatusBlane Severino DOLAB BLOOD ORDERABLESFinal ResultPerforming OrganizationAddressCity/State/ZIP CodePhone Number [facility] [address] [place] [id number] * (ABNORMAL) Iron and TIBC (09/30/2024 10:29 AM EDT)ComponentValueRef RangeTest MethodAnalysis TimePerformed AtPathologist TysmdepggBLVS76(L)50 - 212 ug/dL 09/30/2024 12:13 PM [facility] CtrTOTAL IRON BINDING [id number] - 450 ug/dL09/30/2024 12:13 PM [facility] Ctr% IRON SATURATION5.0(L)20 - 50 %09/30/2024 12:13 PM [facility] NdlBPXBHYUHBCW288(L)203 - 362 mg/dL09/30/2024 12:13 PM [facility] CtrSpecimen (Source)Anatomical Location / Laterality Collection Method / VolumeCollection TimeReceived TimeOtherTopography unknown / Cmgaogk3909/30/2024 10:29 AM EDT09/30/2024 10:29 AM EDT Narrative [facility] - 09/30/2024 12:33 PM EDT NOT FASTING Authorizing ProviderResult TypeResult StatusBlane Severino DOLAB BLOOD ORDERABLESFinal ResultPerforming OrganizationAddressCity/State/ZIP CodePhone Number [facility] [address] [place] [address], [facility] [address] [place] [address] * Protein electrophoresis, serum (09/30/2024 10:29 AM EDT)ComponentValueRef RangeTest MethodAnalysis TimePerformed AtPathologist SignatureTOTAL PROTEIN, SERUM7.56.0 - 8.5 g/dL10/01/2024 4:09 PM EDTFIRELANDSALBUMIN, SERUM2.42.9 - 4.4 g/dL10/01/2024 4:09 PM QCKPTVZXPNWNFVGSY-3-VGAZCBMX8.70.0 - 0.4 g/dL 10/01/2024 4:09 PM DKHSYITZUPMEMEBFD-1-YMOYNXWE2.60.4 - 1.0 g/dL10/01/2024 4:09 PM EDTFIRELANDSBETA GLOBULIN1.40.7 - 1.3 g/dL10/01/2024 4:09 PM EDT FIRELANDSGAMMA GLOBULIN1.40.4 - 1.8 g/dL10/01/2024 4:09 PM EDTFIRELANDSM-SPIKE Comment:Not Observed g/dL10/01/2024 4:09 PM EDTFIRELANDSComment: SPE shows asymmetrical beta. Suggest serum MADAY and free light chain analysis for further evaluation. GLOBULIN, TOTAL5.12.2 - 3.9 g/dL10/01/2024 4:09 PM EDTFIRELANDSA/G RATIO0.50.7 - 1.708 4:09 PM EDTFIRELANDSSPE-NOTEComment.10/01/2024 4:09 PM EDT FIRELANDSComment: Protein electrophoresis scan will follow via computer, mail, or water main inspector delivery. Performed at: ??CB - [facility] [address] ??[id number] Customer Account Representative: Jose Perea PhD, Phone: ??[phone] Specimen (Source)Anatomical Location / LateralityCollection Method / Volume Collection TimeReceived TimeOtherTopography unknown / Rugojmj7309/30/2024 10:29 AM EDT09/30/2024 10:29 AM EDT Narrative Authorizing ProviderResult TypeResult StatusTimothy J Adamowicz DOLAB BLOOD ORDERABLESFinal ResultPerforming OrganizationAddressCity/State/ZIP CodePhone Number [facility] [address] [place] [address], * Lactate dehydrogenase (09/30/2024 10:29 AM EDT)ComponentValueRef RangeTest MethodAnalysis TimePerformed AtPathologist SignatureLDH LACTATE DEHYDROGENASE 974653 - 271 U/L09/30/2024 12:13 PM [facility] CtrSpecimen (Source)Anatomical Location / LateralityCollection Method / VolumeCollection TimeReceived TimeOtherTopography unknown / Hfsnzbo8309/30/2024 10:29 AM EDT 09/30/2024 10:29 AM EDT [facility] - 09/30/2024 12:33 PM EDT NOT FASTING Authorizing ProviderResult TypeResult StatusTimuzair Severino [facility]ITALAB BLOOD ORDERABLESFinal ResultPerforming OrganizationAddressCity/State/ZIP CodePhone Number [facility] [address] [place] [address], [facility] [address] [place] [address] * (ABNORMAL) Ferritin (09/30/2024 10:29 AM EDT)ComponentValueRef RangeTest MethodAnalysis TimePerformed AtPathologist DxeyncvvgJENNHSVS296.8(H)11.0 - 306.8 ng/mL09/30/2024 12:33 PM [facility] CtrSpecimen (Source)Anatomical Location / LateralityCollection Method / VolumeCollection TimeReceived TimeOtherTopography unknown / Yflrlsf1109/30/2024 10:29 AM EDT 09/30/2024 10:29 AM EDT [facility] - 09/30/2024 12:33 PM EDT NOT FASTING Authorizing ProviderResult TypeResult StatusTimuzair Severino DOLAB BLOOD ORDERABLESFinal ResultPerforming OrganizationAddressty/State/ZIP CodePhone Number [facility] [address] [place] [address], [facility] [address] [place] [address] from Last 3 Months Insurance * Guarantor: Emma Mahan TypeRelation to PatientDate of BirthPhone Billing AddressPersonal/RulpkoOdvc34/[birth year][address] [id number] Care Teams Team MemberRelationshipSpecialtyStart DateEnd Blane Beavers DO [address] [facility] [address] [place] [address] PCP - GeneralFamily Ljpecpti72/22/23 Penelope Walker, CAREER DEVELOPMENT DIRECTOR-SOFTWARE QUALITY AUTOMATION ENGINEER [address] [facility] [address] [place] [address] Nurse PractitionerKaleida Health07/28/22
--- OUTSIDE RECORDS SUMMARY | 2024-12-22 22:06 | XMS_ITS | Clinical Summary ---
Author Organization [facility] tem Address [facility] 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 Active ketorolac (TORADOL) 10 mg tablet Take 1 tablet (10 mg total) by mouth every 4 (four) hours as needed.09/08/2024 Active lamoTRIgine (LaMICtal) 150 mg tablet Take 1 tablet (150 mg total) by mouth in the morning.05/29/2024tive cariprazine (VRAYLAR) 3 mg capsule Take 1 capsule (3 mg total) by mouth in the morning.Expired Active Problems ProblemNoted DateDiagnosed DateFlank pain10/01/2024 Encounters DateTypeDepartmentCare ZgplUqfdloavvyn69/13/2025 8:54 AM EDT - 10/01/2024 2:33 PM EDTEmergency [facility] [address] [place] [address] Boaz Fraser DO Ford, Jeffrey S, MD Flank pain (Primary Dx) Discharge Disposition: Left Against Medical Advice or Discontinued Care 10/01/2024Travelfrom Last 3 Months Family History Medical HistoryRelationNameCommentsHypertensionFatherCrohn's diseaseMaternal AuntDepressionMaternal UncleSchizophreniaMaternal UncleLung cancerPaternal GrandfatherRelationNameStatusCommentsBrotherAliveDaughterAliveFatherAlive Maternal AuntMaternal UncleMotherAlivePaternal GrandfatherSonAlive Social History Tobacco UseTypesPacks/DayYears UsedDateSmoking Tobacco: NeverSmokeless Tobacco: NeverAlcohol UseStandard Drinks/WeekCommentsNot Currently0 (1 standard drink = 0.6 oz pure alcohol)ChildcareAnswerDate NbkwueiwZauzcsjhjTsbvpfp40/09/2019 EmploymentAnswerDate MsdlwzgrLdjijastmxEeezckz34/09/2019Hunger ScreeningAnswer Date RecordedWithin the past 12 months we worried whether our food would run out before we got money to buy more.Never True10/01/2024Within the past 12 months the food we bought just didn't last and we didn't have money to get more.Never True10/01/2024Purpose - LifeAnswerDate RecordedPurpose and direction in life Utetzbd56/11/2021CommentsNoSex and Gender InformationValueDate Recorded Sex Assigned at BirthNot on fileLegal TkqNmspfz68/06/2015 12:11 PM EDTGender IdentityNot on fileSexual OrientationNot on file Last Filed Vital Signs Vital SignReadingTime TakenCommentsBlood Lgzitjot204/9008 2:28 PM EDT Jfxfb237110/01/2024 2:28 PM XRQWseqwgowfsq66.3 ??C (99.2 ??F)10/01/2024 9:15 AM EDTRespiratory Cjwp986910/01/2024 2:28 PM EDTOxygen Gnrrtoounj32%10/01/2024 2:28 PM EDTInhaled Oxygen Concentration--Eczoam64.2 kg (143 lb 12.8 oz)05/25/2020 9:08 AM MAFGyktdq483 cm (5' 3 )05/25/2020 9:08 AM EDTBody Mass Index25.47 05/25/2020 9:08 AM EDT Plan of Treatment Health MaintenanceDue DateLast DoneCommentsDepression Uphkuwlem34/30/2008Tobacco Ktixztqkm03/30/2008dult BMI Xeayzzcgd85/30/2014Pap Smear/12/2019 COVID-19 Vaccine ( season)511/, 12/08/2020Influenza Zjpwkhy09/, 12/22/2022, 11/25/2019, Additional history exists DTaP,Tdap and Td Vaccines (9 - Td or Tdap), 10/09/2017, 10/23/2014, Additional history exists Medical Devices Not on file Procedures Procedure NamePriorityDate/TimeAssociated DiagnosisCommentsPOCT NURSING URINE MACROSCOPIC BNFffusjy35/13/2025 11:26 AM EDT ER EXTRA URINE ZNSCPLYWGC73/13/2025 11:12 AM EDT ER EXTRA URINE ADKKDTKEFCX52/13/2025 11:12 AM EDT ER EXTRA FPOUEPJND60/13/2025 11:12 AM EDT BLOOD GCRZLXESSJT15/13/2025 10:34 AM EDT BLOOD MSXPARJDMBW27/13/2025 10:[address] ABDOMEN AND PELVIS W GOSVCHTD83/13/2025 9:55 AM EDT MUNOZ TOP ON QQWKODC1910/01/2024 9:27 AM EDT LAVENDER MEYNZRE5210/01/2024 9:27 AM EDT PST KZNRVKV3110/01/2024 9:27 AM EDT BLUE LYUCOHF1010/01/2024 9:27 AM EDT LACTATE W/ REFLEXAdd-On08/ 9:27 AM EDT MAGNESIUMSTAT Add-on10/01/2024 9:27 AM EDT COMPREHENSIVE METABOLIC PANELSTAT Add-on10/01/2024 9:27 AM EDT CBC WITH AUTO DIFFERENTIALSTAT Add-on10/01/2024 9:27 AM EDT RAINBOW LMDTJNQF38/13/2025 9:27 AM EDT HIGH RISK HPV W/MDFSFtrkhgi86/11/2020 from Last 3 Months or Most Recently Relevant to Health Maintenance Results * (ABNORMAL) POCT Nursing Urine Macroscopic UA (10/01/2024 11:26 AM EDT) ComponentValueRef RangeTest MethodAnalysis TimePerformed AtPathologist [facility] Urine Specific Gravity1.0101.010, 1.015, 1.020, 1.4232110/01/2024 11:[address] [facility] Urine Leukocyte EsteraseSmall(A) Ermfuyua19/13/2025 11:[address] [facility] Urine Nitrite NhinpcuqAqwdzsoa98/13/2025 11:[address] [facility] Urine pH 6.55.0, 6.0, 6.5, 7.0, 7.5, 8.0, 8.5, 5.5010/01/2024 11:[address] [facility] Urine ProteinTrace(A)Mxwfrbvq09/13/2025 11:18 AM EDT [facility] Urine FmodbhkYrudqlqcOaudjdqv69/13/2025 11:[address] [facility] Urine HbpzbkgTwiptcvfJpiljewo39/13/2025 11:[address] [facility] Urine Urobilinogen0.2 E.U./dL10/01/2024 11:[address] [facility] Urine BilirubinNegativeNegative 10/01/2024 11:[address] [facility] Urine Blood/HGBSmall(A) Kttrmfyd39/13/2025 11:18 AM [facility]YSpec[facility] (Source) Anatomical Location / LateralityCollection Method / VolumeCollection Time Received ChejDucog04/13/2025 11:26 AM EDT10/01/2024 11:18 AM EDT Narrative Authorizing ProviderResult TypeResult StatusRobert W Fraser DOPOINT OF CARE TEST ORDERABLESFinal ResultPerforming OrganizationAddressCity/State/ZIP Code Phone Number [facility] [address] [place] [address], [place] * Extra Urine [place] (10/01/2024 11:12 AM EDT)ComponentValueRef RangeTest Method Analysis TimePerformed AtPathologist SignatureExtra TubeAuto Resulted 10/01/2024 1:01 PM [facility] LABORATORYSpecimen (Source) Anatomical Location / LateralityCollection Method / VolumeCollection Time Received TimeUrineUrine specimen collection, clean catch / Zumahfm4210/01/2024 11:12 AM EDT10/01/2024 11:59 AM EDT Narrative Authorizing ProviderResult TypeResult StatusRobert W Fraser DOURINE ORDERABLES Final ResultPerforming OrganizationAddressCity/State/ZIP CodePhone Number [facility] [address] [place] [address], * Extra Urine Culture (10/01/2024 11:12 AM EDT)ComponentValueRef RangeTest MethodAnalysis TimePerformed AtPathologist SignatureExtra TubeAuto Resulted 10/01/2024 1:01 PM [facility] LABORATORYSpecimen (Source) Anatomical Location / LateralityCollection Method / VolumeCollection Time Received TimeUrineUrine specimen collection, clean catch / Pgpcfsw6610/01/2024 11:12 AM EDT10/01/2024 11:59 AM EDT Narrative Authorizing ProviderResult TypeResult StatusRobert W Fraser DOURINE ORDERABLES Final ResultPerforming OrganizationAddressCity/State/ZIP CodePhone Number [facility] [address] [place] [address], * Extra Urine (10/01/2024 11:12 AM EDT)ComponentValueRef RangeTest Method Analysis TimePerformed AtPathologist SignatureExtra TubeAuto Resulted 10/01/2024 1:01 PM [facility] LABORATORYSpecimen (Source) Anatomical Location / LateralityCollection Method / VolumeCollection Time Received TimeUrineUrine specimen collection, clean catch / Qivdury3110/01/2024 11:12 AM EDT10/01/2024 11:59 AM EDT Narrative Authorizing ProviderResult TypeResult StatusRobert W Fraser DOURINE ORDERABLES Final ResultPerforming OrganizationAddressCity/State/ZIP CodePhone Number [facility] [address] [place] [address], * Blood culture #2 (10/01/2024 10:34 AM EDT) Only the most recent of2 resultswithin the time period is included. ComponentValueRef RangeTest MethodAnalysis TimePerformed AtPathologist Signature CULTURE RESULTSNO GROWTH 5 DAYS10/06/2024 12:02 PM [facility] LABORATORYSpecimen (Source)Anatomical Location / LateralityCollection Method / VolumeCollection TimeReceived TimeBloodVenous blood / UnknownVenipuncture / Buuvbyc9210/01/2024 10:34 AM EDT10/01/2024 11:21 AM EDT Narrative Authorizing ProviderResult TypeResult StatusAndrew D Riverside MDMICROBIOLOGY - GENERAL ORDERABLESFinal ResultPerforming OrganizationAddressCity/State/ZIP CodePhone Number [facility] [address] [place] [address], * CT abdomen and pelvis with contrast (10/01/2024 9:55 AM EDT)Anatomical Region LateralityModalityBody, Abdomen, Body CoveraN/AComputed TomographySpecimen (Source)Anatomical Location / LateralityCollection Method / VolumeCollection TimeReceived Time10/01/2024 10:06 AM EDT Narrative 10/01/2024 10:10 AM EDT HISTORY: Pain. Recent kidney stone with surgery. Evaluate for hematoma. COMPARISON: None TECHNIQUE: Routine CT abdomen and pelvis obtained after the uncomplicated intravenous administration of contrast material.Multiplanar reformats obtained from the axial data. Automated exposure control was utilized. CONTRAST: ??Omnipaque FINDINGS/IMPRESSION: Liver and gallbladder: Normal. Main portal vein is patent Spleen: Normal. Pancreas: Normal. Adrenal glands: Normal. Kidneys: Double-J ureter stent has been placed on the right. Multiple stones are appreciated in thedistended right renal pelvis. There is also calcification [...] adnexa appear age-appropriate. No urinary bladder stone isseen Osseous structures: No acute osseous process All [...] the uncomplicated intravenous administration of contrast material.Multiplanar reformatsobtained from the [...] Jenise Walters MD on 10/01/2024 10:10 AM Authorizing ProviderResult TypeResult StatusKam NGUYEN CT ORDERABLESFinal Result * Munoz Top On Ice (10/01/2024 9:27 AM EDT)ComponentValueRef RangeTest Method Analysis TimePerformed AtPathologist SignatureExtra TubeAuto Resulted 10/01/2024 11:01 AM [facility] LABORATORYSpecimen (Source) Anatomical Location / LateralityCollection Method / VolumeCollection Time Received TimeBloodVenous blood / Flpomzl4410/01/2024 9:27 AM EDT10/01/2024 10:14 AM EDT Narrative Authorizing ProviderResult TypeResult StatusRobert W [facility] BLOOD ORDERABLESFinal ResultPerforming OrganizationAddressCity/State/ZIP CodePhone Number [facility] [address] [place] [address], [place] [phone] * Lactate w/ Reflex (10/01/2024 9:27 AM EDT)ComponentValueRef RangeTest Method Analysis TimePerformed AtPathologist SignatureLACTATE W/REFLEX1.40.4 - 2.0 mmol/L10/01/2024 10:33 AM [facility] LABORATORYSpecimen (Source)Anatomical Location / LateralityCollection Method / VolumeCollection TimeReceived TimeBloodVenous blood / Brwiqeo6210/01/2024 9:27 AM EDT10/01/2024 10:14 AM EDT Narrative [facility] - 10/01/2024 10:33 AM EDT Result did not trigger repeat Lactate, re-order if needed. Authorizing ProviderResult TypeResult StatusKam DELGADILLO BLOOD ORDERABLESFinal ResultPerforming OrganizationAddressCity/State/ZIP CodePhone Number [facility] [address] [place] [address], * (ABNORMAL) CBC auto differential (10/01/2024 9:27 AM EDT)ComponentValueRef RangeTest MethodAnalysis TimePerformed AtPathologist IvflvaucxJIP65.3(H)4 - 11 x10E9/L10/01/2024 10:36 AM [facility] LABORATORYRBC Count3.94 3.8 - 5.2 X10E12/L10/01/2024 10:36 AM [facility] Quglojlqfo97.2(L)11.7 - 15.5 g/dL10/01/2024 10:36 AM [facility] MRAZKFQUSYOcepwsjqre99.0(L)35 - 47 %10/01/2024 10:36 AM [facility] SZPALMWMRADMU58(L)80 - 100 fL10/01/2024 10:36 AM [facility] SNBMTRJZRXAXN65.9(L)27 - 34 pg10/01/2024 10:36 AM [facility] OFKKNDBYUKMAQX76.032 - 36 g/dL10/01/2024 10:36 AM [facility] NYRYFXAFQJGOG14.6(H)11.5 - 15 %10/01/2024 10:36 AM [facility] LABORATORYPlatelet Count1,005(HH)150 - 450 X10E9/L10/01/2024 10:36 AM [facility] LABORATORYMPV7.17 - 12 fL10/01/2024 10:36 AM [facility] LABORATORYNeutrophils %83%10/01/2024 10:36 AM [facility] LABORATORYComment:This is an appended report. These results have been appended to a previously preliminary verified report. Lymphocytes %14%10/01/2024 10:36 AM [facility] Comment:This is an appended report. These results have been appended to a previously preliminary verified report.Monocytes %3%10/01/2024 10:36 AM EDT [facility] LABORATORYComment:This is an appended report. These results have been appended to a previously preliminary verified report. Neutrophils Absolute (M)16.0(H)1.5 - 6.6 10*3/uL10/01/2024 10:36 AM [facility] LABORATORYComment:This is an appended report. These results have been appended to a previously preliminary verified report.Lymphocytes Absolute2.71.0 - 3.5 10*3/uL10/01/2024 10:36 AM [facility] LABORATORYComment:This is an appended report. These results have been appended to a previously preliminary verified report.Monocytes Absolute0.60.0 - 0.9 10*3/uL10/01/2024 10:36 AM [facility] LABORATORYComment:This is an appended report. These results have been appended to a previously preliminary verified report.Rouleaux1+10/01/2024 10:36 AM [facility] LABORATORYComment:This is an appended report. These results have been appended to a previously preliminary verified report.Differential TypeMANUAL FUSOZILGSWXR44/13/2025 10:36 AM [facility] LABORATORYComment: This is an appended report. These results have been appended to a previously preliminary verified report.Specimen (Source)Anatomical Location / Laterality Collection Method / VolumeCollection TimeReceived TimeBloodVenous blood / Lxbzsvf2310/01/2024 9:27 AM EDT10/01/2024 9:38 AM EDT Narrative Authorizing ProviderResult TypeResult StatusRobert W [facility] BLOOD ORDERABLESFinal ResultPerforming OrganizationAddressCity/State/ZIP CodePhone Number [facility] [address] [place] [address], * Lavender Top (10/01/2024 9:27 AM EDT)ComponentValueRef RangeTest Method Analysis TimePerformed AtPathologist SignatureExtra TubeAuto Resulted 10/01/2024 11:01 AM [facility] LABORATORYSpecimen (Source) Anatomical Location / LateralityCollection Method / VolumeCollection Time Received TimeBloodVenous blood / Vauzsbs7310/01/2024 9:27 AM EDT10/01/2024 9:38 AM EDT Narrative Authorizing ProviderResult TypeResult StatusRobert W Fraser DOLAB BLOOD ORDERABLESFinal ResultPerforming OrganizationAddressCity/State/ZIP CodePhone Number [facility] [address] [place] [address], * PST TOP (10/01/2024 9:27 AM EDT)ComponentValueRef RangeTest MethodAnalysis TimePerformed AtPathologist SignatureExtra TubeAuto Oxrgytxy66/13/2025 11:01 AM [facility] LABORATORYSpecimen (Source)Anatomical Location / LateralityCollection Method / VolumeCollection TimeReceived TimeBloodVenous blood / Obrboou4110/01/2024 9:27 AM EDT10/01/2024 9:38 AM EDT Narrative Authorizing ProviderResult TypeResult StatusRobert W Fraser DOLAB BLOOD ORDERABLESFinal ResultPerforming OrganizationAddressCity/State/ZIP CodePhone Number [facility] [address] [place] [address], * Light Blue Top (10/01/2024 9:27 AM EDT)ComponentValueRef RangeTest Method Analysis TimePerformed AtPathologist SignatureExtra TubeAuto Resulted 10/01/2024 11:01 AM [facility] LABORATORYSpecimen (Source) Anatomical Location / LateralityCollection Method / VolumeCollection Time Received TimeBloodVenous blood / Awyruwd6010/01/2024 9:27 AM EDT10/01/2024 9:38 AM EDT Narrative Authorizing ProviderResult TypeResult StatusRobert W Fraser DOLAB BLOOD ORDERABLESFinal ResultPerforming OrganizationAddressCity/State/ZIP CodePhone Number [facility] [address] [place] [address], * Magnesium (10/01/2024 9:27 AM EDT)ComponentValueRef RangeTest MethodAnalysis TimePerformed AtPathologist SignatureMAGNESIUM2.31.8 - 2.6 mg/dL10/01/2024 10:15 AM [facility] LABORATORYSpecimen (Source)Anatomical Location / LateralityCollection Method / VolumeCollection TimeReceived Time BloodVenous blood / Xhgzgwp9310/01/2024 9:27 AM EDT10/01/2024 9:38 AM EDT Narrative Authorizing ProviderResult TypeResult StatusRobert W [facility] BLOOD ORDERABLESFinal ResultPerforming OrganizationAddressCity/State/ZIP CodePhone Number [facility] [address] [place] [address], * (ABNORMAL) Comprehensive metabolic panel (10/01/2024 9:27 AM EDT)Component ValueRef RangeTest MethodAnalysis TimePerformed AtPathologist SignatureSODIUM 367974 - 146 mmol/L10/01/2024 10:15 AM [facility] POTASSIUM4.33.5 - 5.0 mmol/L10/01/2024 10:15 AM [facility] UTUFNNPZTIRQOIRUJL25(L)98 - 109 mmol/L10/01/2024 10:15 AM [facility] LABORATORYCARBON HRHXEAH4534 - 32 mmol/L10/01/2024 10:15 AM [facility] LABORATORYANION GJR946 - 15 mmol/L10/01/2024 10:15 AM EDT [facility] LABORATORYBLOOD UREA DMZMTTOE375 - 23 mg/dL10/01/2024 10:15 AM [facility] LABORATORYCREATININE1.06(H)0.40 - 1.00 mg/dL10/01/2024 10:15 AM [facility] LABORATORYComment:METHOD TRACEABLE TO IDMS QIBEQMYYJHIQKSZ840(H)65 - 99 mg/dL10/01/2024 10:15 AM EDT [facility] LABORATORYCALCIUM9.38.5 - 10.5 mg/dL10/01/2024 10:15 AM [facility] LABORATORYTOTAL PROTEIN8.2(H)6.0 - 8.0 g/dL 10/01/2024 10:15 AM [facility] LABORATORYALBUMIN3.43.2 - 5.3 g/dL10/01/2024 10:15 AM [facility] LABORATORYALKALINE IEKHXJZLQBX140(H)39 - 130 U/L10/01/2024 10:15 AM [facility] GIYYMQUERMMTT17<=41 U/L10/01/2024 10:15 AM [facility] ZBYVLSIAYPGAI77(H)<=31 U/L10/01/2024 10:15 AM [facility] LABORATORYBILIRUBIN,TOTAL0.60.3 - 1.2 mg/dL10/01/2024 10:15 AM [facility] LABORATORYEGFR Non-Race Mmvzfnpys63>=60 ml/min/1.73sq.m 10/01/2024 10:15 AM [facility] LABORATORYComment: Reported eGFR is based on the CKD-EPI 2020 equation that does not use a race coefficient. Specimen (Source)Anatomical Location / LateralityCollection Method / Volume Collection TimeReceived TimeBloodVenous blood / Fcnmyvk5810/01/2024 9:27 AM EDT 10/01/2024 9:38 AM EDT Narrative Authorizing ProviderResult TypeResult StatusRobert W [facility] BLOOD ORDERABLESFinal ResultPerforming OrganizationAddressCity/State/ZIP CodePhone Number [facility] [address] [place] [address], [place] [phone] * High risk HPV w/nancy (01/30/2020)ComponentValueRef RangeTest MethodAnalysis TimePerformed AtPathologist SignatureOther High Risk HpvSee attached report MANUALLY TRANSCRIBED RESULTSComment:See attached report Narrative Authorizing ProviderResult TypeResult StatusNot In System Ref [facility] BLOOD ORDERABLESEdited Result - FinalPerforming OrganizationAddressCity/State/ZIP Code Phone Number MANUALLY TRANSCRIBED RESULTS from Last 3 Months or Most Recently Relevant to Health Maintenance Insurance * Guarantor: Emma MahanAccount TypeRelation to PatientDate of BirthPhone Billing AddressPersonal/OodsqfTwbi83/30/[address] [address] Advance Directives * Full Code (Latest Code Status on File) Date ActivatedDate InactivatedComments09/07/2017 8:59 PM09/07/2017 11:24 PM
--- NOTE | 2024-12-22 22:40 | PC.NURSE ---
left flank pain, known kidney stones, extensive urologic history, multiple surgeries, has been dealing with a right sided stone most recently, today pain is mostly in the left flank. Pain is severe, nausea and vomiting.
--- NOTE | 2024-12-22 22:43 | CT_ITS ---
The [address] [address] Patient Name: LEONA GOODSON MRN: [id number] date: 1995 Sex: F Assigned Patient Location: ER Current Patient Location: ER Accession/Order Number: [id number] Exam Date: 12/22/2024 23:06 Report Date: 12/22/2024 23:49 At the request of: ELMO BLANCAS MD Procedure: CT abdomen pelvis wo con CT Abdomen and Pelvis withoutcontrast TECHNIQUE: Axial imaging with 2-D reconstruction. The CT exam was performed using one or more the following dose reduction techniques: Automated exposure control, adjustment of the MA and/or Kv according to patient size, or use of the iterative reconstruction technique. COMPARISON: 09/21/2024 History: Left flank pain LIMITATIONS: None LOWER THORAX Unremarkable LIVER: Unremarkable GALLBLADDER: No gallbladder abnormality identified. BILE DUCTS: No dilatation SPLEEN: Unremarkable PANCREAS: Unremarkable ADRENAL GLANDS: Unremarkable KIDNEYS:Residual intracapsular hematoma in the right redemonstrated. Likely calcific changes. Right ureteral stent in place. Fragments of calculi in the inferior pole in the renal pelvis. Left nephrolithiasis measuring up to 4 mm. Obstructing stone in the left ureteropelvic junction. Mild hydronephrosis. AORTA: No abdominal aortic aneurysm identified. RETROPERITONEUM: No significant retroperitoneal abnormalities identified. MESENTERY:Unremarkable STOMACH:Unremarkable SMALL BOWEL: The small bowel loops are nondistended. APPENDIX: The appendix is normal. COLON: Unremarkable URINARY BLADDER: Urinary bladder is unremarkable. REPRODUCTIVE SYSTEM: Reproductive structures are unremarkable. PNEUMOPERITONEUM: None PERITONEAL FLUID:None BONY STRUCTURES: Unremarkable ABDOMINAL WALL: Unremarkable CT/CT abdomen pelvis wo con IMPRESSION: 5 mm obstructing left UPJ stone with mild hydronephrosis. Left nephrolithiasis measuring up to 4 mm. Right ureteral stent in place. Fragments of calcification in the inferior pole and in the renal pelvis on the right. Residual findings of capsular hematoma on the right. No significant mass effect seen. Impression dictated by: Luis Eduardo Tate M.D. 12/22/2024 11:49 PM Dictation Location: [facility] Electronically authenticated by: [id number] Y Date: 12/22/2024 23:49
--- NOTE | 2024-12-22 22:44 | ED_ITS ---
HPI HPI - Back Pain/Injury General Chief Complaint: Back Pain/Injury Stated Complaint: KIDNEY STONE ON LEFT SIDE DROPPED Time Seen by Provider: 12/22/24 22:42 Source: patient Mode of arrival: walk-in Limitations: no limitations History of Present Illness HPI Narrative: past history of kidney stones. presents with left renal colic and vomiting. no fever or chills. No resp symptoms. Requesting something for pain Related Data Home Medications ?Medication ?Instructions ?Recorded ?Confirmed lamotrigine 150 mg tablet 150 mg PO .QHS 08/14/2308/13 cariprazine 3 mg capsule (Vraylar) 3 mg PO .QHS 12/25/24 sertraline 50 mg tablet 50 mg PO .QHS 08/16/2312/25 Previous Rx's ?Medication ?Instructions ?Recorded cephalexin 500 mg capsule 500 mg PO BID 7 days #14 cap s 12/25/24 mirabegron 50 mg tablet,extended 50 mg PO Q24H #14 tab s 12/25/24 release 24 hr (Myrbetriq) Allergies Allergy/AdvReac Type Severity Reaction Status Date / Time ethinyl estradiol (From Allergy suicidal Verified 12/24/24 14:47 NuvaRing) etonogestrel (From NuvaRing) Allergy suicidal Verified 12/24/24 14:47 Opioid HPI Opioid Management Most Recent Opioid Data: Last Pain Scale 4 12/25/24, 13:12 Last Pain Assessment 12/25/24, 13:12 Last ED Pain Assessment 12/22/24, 23:31 Last MAR Pain Assessment 12/22/24, 23:52 Last ORT Total Score 4 09/17/24, 04:03 Last ORT Risk Category Moderate Risk 09/17/24, 04:03 Review of Systems 2 ROS Status of ROS 10 or more systems reviewed and unremark able except as noted in history and below [facility] Medical History (Updated 12/24/24 @ 14:51 by Lizz Glass NP) Ureteropelvic junction calculus ?N20.1 - Calculus of ureter (ICD-10) Aspiration pneumonia (09/17/24) ?J69.0 - Pneumonitis due to inhalation of food and vomit (ICD-10) Nausea ?R11.0 - Nausea (ICD-10) History of blood transfusion ?Z92.89 - Personal history of other medical treatment (ICD-10) Neutrophilia ?D72.828 - Other elevated white blood cell count (ICD-10) Iron deficiency ?E61.1 - Iron deficiency (ICD-10) Thrombocytosis ?D75.839 - Thrombocytosis, unspecified (ICD-10) Post-procedural fever ?R50.82 - Postprocedural fever (ICD-10) Complicated urinary tract infection ?N39.0 - Urinary tract infection, site not specified (ICD-10) Sepsis ?A41.9 - Sepsis, unspecified organism (ICD-10) Perinephric hematoma ?S37.019A - Minor contusion of unspecified kidney, initial encounter (ICD-10) Ureteral stone with hydronephrosis ?N13.2 - Hydronephrosis with renal and ureteral calculous obstruction (ICD- 10) Urinary tract infection ?N39.0 - Urinary tract infection, site not specified (ICD-10) VERONICA (acute kidney injury) ?N17.9 - Acute kidney failure, unspecified (ICD-10) Acute flank pain ?R10.9 - Unspecified abdominal pain (ICD-10) UTI (urinary tract infection) ?N39.0 - Urinary tract infection, site not specified (ICD-10) Staghorn calculus ?N20.0 - Calculus of kidney (ICD-10) PONV (postoperative nausea and vomiting) ?R11.2 - Nausea with vomiting, unspecified (ICD-10) ?Z98.890 - Other specified postprocedural states (ICD-10) Bipolar disorder ?F31.9 - Bipolar disorder, unspecified (ICD-10) Depression ?F32.A - Depression, unspecified (ICD-10) Anxiety ?F41.9 - Anxiety disorder, unspecified (ICD-10) Kidney stone ?N20.0 - Calculus of kidney (ICD-10) Bipolar 2 disorder ?F31.81 - Bipolar II disorder (ICD-10) Surgical History (Updated 12/24/24 @ 14:45 by Lizz Glass NP) S/P cystoscopy with ureteral stent placement (10/30/24) ?Z96.0 - Presence of urogenital implants (ICD-10) S/P cystoscopy with ureteral stent placement (09/11/24) ?Z96.0 - Presence of urogenital implants (ICD-10) Status post dilation of urethral narrowing ?Z98.890 - Other specified postprocedural states (ICD-10) History of salpingectomy ?Z90.79 - Acquired absence of other genital organ(s) (ICD-10) S/P cystoscopy with ureteral stent placement (08/16/23) ?Z96.0 - Presence of urogenital implants (ICD-10) H/O lithotripsy ?Z98.890 - Other specified postprocedural states (ICD-10) Family History Other Family history of diabetes mellitus Family history of hypertension Family history of prostate cancer Social History (Updated 09/17/24 @ 04:14 by Ana Marion RN) Within the past year, how often did you have a drink containing alcohol: monthly or less Do you use any of these nicotine containing products: vaping products Nicotine containing products detail: vaped yesterday Non-prescribed substance use: denies use 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 Highest level of school completed/degree received: Bachelor's degree Are you now , , , , never or living with a partner: In a typical week, how many times do you talk on the telephone with family, friends, or neighbors: twice per week How often do you get together with friends or relatives: twice per week Little interest or pleasure in doing things: not at all Feeling down, depressed, or hopeless: not at all Gender Identity: female Exam Constitutional Vital Signs, click to edit/add: Last Vital Signs Temp 98.2 F 12/22/24 22:00 Pulse 88 12/23/24 01:27 Resp 16 12/23/24 01:27 BP 108/76 12/23/24 01:27 Pulse Ox 96 12/23/24 01:27 O2 Del Method Room Air 12/23/24 01:27 Common normals: average body habitus, oriented x3, no limitations, healthy appearing, alert and well nourished General appearance: in distress and anxious HENMT Common normals: normocephalic and head/scalp atraumatic Eye Common normals: EOMs intact bilaterally and conjunctivae normal Respiratory Common normals: normal respiratory effort, no retractions, no use of accessory muscles and clear to auscultation bilaterally Cardio Common normals: S1 normal heart sound and S2 normal heart sound Rate: tachycardic GI Other: left flank tenderness Extremity Common normals: normal to inspection and full ROM Neuro Common normals: oriented x3, CN's II-XII intact bilaterally, moves all extremities and no focal motor deficits Psych Appearance: grossly normal Course Vital Signs Vital signs: Vital Signs Temperature 98.2 F 12/22/24 22:00 Pulse Rate 105 H 12/22/24 22:00 Respiratory Rate 20 12/22/24 22:00 Blood Pressure 155/90 H 12/22/24 22:00 Pulse Oximetry 99 12/22/24 22:00 Oxygen Delivery Method Room Air 12/22/24 22:00 Temperature 98.2 F 12/22/24 22:00 Pulse Rate 88 12/23/24 01:27 Respiratory Rate 16 12/23/24 01:27 Blood Pressure 108/76 12/23/24 01:27 Pulse Oximetry 96 12/23/24 01:27 Oxygen Delivery Method Room Air 12/23/24 01:27 MDM - Back Pain/Injury MDM Narrative Medical decision making narrative: known history of kidney stones. Presents with left renal colic. CT with finding of 5mm stone obstructing left UPJ with mild hydronephrosis. Pain controlled . UA positive and patient given dose of Rocephin. She has an appointment with Urology in 2 days. Past urine positive for Klebsiella that was hurtado sensitive. Patient discharged with prescription of Toradol and Keflex and is to keep her appointment with urology Lab Data Labs: Lab Results 12/22/24 12/22/24 12/23/24 Range/Units 22:34 22:42 01:32 WBC 15.0 H (4.0-11.0) 10^3/uL RBC 4.48 (4.20-5.40) 10^6/uL Hgb 12.9 (12.0-16.0) g/dL Hct 38.5 (36.0-48.0) % MCV 85.9 (81.0-99.0) fL MCH 28.8 (26.7-34.0) pg MCHC 33.5 (29.9-35.2) g/dL RDW 14.2 (11.0-15.0) % Plt Count 590 H (150-450) 10^3/uL MPV 8.7 L (9.5-13.5) fL Neut % (Auto) 59.4 (43.0-75.0) % Lymph % (Auto) 29.3 (20.5-60.0) % [place] % (Auto) 7.1 (1.7-12.0) % Eos % (Auto) 3.3 (0.9-7.0) % Baso % (Auto) 0.5 (0.2-2.0) % Neut # (Auto) 8.9 H (1.4-6.5) 10^3/uL Lymph # (Auto) 4.4 H (1.2-3.8) 10^3/uL [place] # (Auto) 1.1 H (0.3-0.8) 10^3/uL Eos # (Auto) 0.5 (0.0-0.7) 10^3/uL Baso # (Auto) 0.1 (0.0-0.1) 10^3/uL Abs Immat Gran (auto) 0.06 H (0.00-0.03) 10^3/uL Imm/Tot Granulo (auto) 0.4 (0.0-0.5) % Sodium 138 (136-145) mmol/L Potassium 3.4 L (3.5-5.1) mmol/L Chloride 101 (98-107) mmol/L Carbon Dioxide 25.9 (21.0-32.0) mmol/L Anion Gap 14.5 BUN 19.0 H (7.0-18.0) mg/dL Creatinine 1.19 H (0.55-1.02) mg/dL Est GFR ( Amer) >60 (>=60 mL/min/1.73m^2) Est GFR (Non-Af Amer) 54 L (>=60 mL/min/1.73m^2) BUN/Creatinine Ratio 16.0 Glucose 116 H (74-106) mg/dL Lactate 2.3 H* 1.8 (0.4-2.0) mmol/L Calcium 9.3 (8.5-10.1) mg/dL Total Bilirubin 0.2 (0.2-1.0) mg/dL AST 11 L (15-37) U/L ALT 36 (14-59) U/L Alkaline Phosphatase 150 H (46-116) U/L Total Protein 8.2 (6.4-8.2) g/dL Albumin 3.6 (3.4-5.0) g/dL Globulin 4.6 g/dL Albumin/Globulin Ratio 0.8 Urine Color Lt. yellow (YELLOW) Urine Clarity Clear (CLEAR) Urine pH 6.5 (5.0-9.0) Ur Specific [place] <=1.005 A (1.005-1.025) Urine Protein 30 A (NEG/TRACE) mg/dL Urine Glucose (UA) Negative (NEGATIVE) mg/dL Urine Ketones Negative (NEGATIVE) mg/dL Urine Occult Blood Large A (NEGATIVE) Urine Nitrite Negative (NEGATIVE) Urine Bilirubin Negative (NEGATIVE) Urine Urobilinogen 0.2 (0.2-1.0) EU/dL Ur Leukocyte Esterase Large A (NEGATIVE) Urine RBC 20-50 A (0-2) #/HPF Urine WBC 5-10 A (NONE SEEN) #/HPF Ur Squamous Epith Cells Few A (NONE/RARE) #/LPF Ur Transition Epith Cell Rare A (NONE SEEN) #/LPF Urine Crystals Seen A (None Seen) #/HPF Amorphous Sediment Rare Urine Bacteria Trace A (NONE SEEN) #/HPF Urine Casts None seen (NONE SEEN) #/LPF Urine Mucus Trace A (NONE SEEN) Ur Culture Indicated? Yes-[facility] [place] Discharge Plan Discharge Chief Complaint: Back Pain/Injury Clinical Impression: Kidney stone on left side, UTI (urinary tract infection) Patient Disposition: Home, Self-Care Prescriptions / Home Meds: No Action lamotrigine 150 mg tablet 150 mg PO .QHS sertraline 50 mg tablet 50 mg PO .QHS Vraylar 3 mg capsule 3 mg PO .QHS cephalexin 500 mg capsule 500 mg PO BID 7 Days Qty: 14 0RF mirabegron [Myrbetriq] 50 mg tablet extended release 24 hr 50 mg PO Q24H Qty: 14 0RF Print Language: [place] Instructions: Kidney Stones (ED), Urinary Tract Infection in Women (ED) Additional Instructions: follow up with Urology in 2 days as planned. Return if fever or uncontrolled pain Referrals: Blane Beavers [Primary Care Provider] - 1 week Discharge Date/Time: 12/23/24 03:05
[2024-12-22 22:47] LABS: Hematocrit 38.5 % (36.0-48.0); Hemoglobin 12.9 g/dL (12.0-16.0); Immature Granulocytes Abs Auto 0.06 10^3/uL (0.00-0.03); Immature Granulocytes Pct Auto 0.4 % (0.0-0.5); Lymphocytes Absolute Auto 4.4 10^3/uL (1.2-3.8); Mean Corpuscular HGB Conc 33.5 g/dL (29.9-35.2); Mean Corpuscular Hemoglobin 28.8 pg (26.7-34.0); Mean Corpuscular Volume 85.9 fL (81.0-99.0); Platelet Count 590 10^3/uL (150-450); Red Blood Count 4.48 10^6/uL (4.20-5.40); White Blood Count 15.0 10^3/uL (4.0-11.0)
[2024-12-22] MEDS: 0.9 % SODIUM CHLORIDE 1,000 ML 999 ML IV ×2 (22:52→23:54)
[2024-12-22] MEDS: KETOROLAC TROMETHAMINE 30 MG/ML VIAL IM (22:52)
[2024-12-22] MEDS: ORPHENADRINE 60 MG/2 ML VIAL IV (22:53)
[2024-12-22 22:58] LABS: Alanine Aminotransferase 36 U/L (14-59); Albumin Globulin Ratio 0.8; Albumin Level 3.6 g/dL (3.4-5.0); Alkaline Phosphatase 150 U/L (46-116); Anion Gap 14.5; Aspartate Amino Transferase 11 U/L (15-37); Blood Urea Nitrogen 19.0 mg/dL (7.0-18.0); Calcium 9.3 mg/dL (8.5-10.1); Carbon Dioxide 25.9 mmol/L (21.0-32.0); Chloride 101 mmol/L (98-107); Estimated GFR (African America >60 (>=60 mL/min/1.73m^2); Estimated GFR (Non-African Ame 54 (>=60 mL/min/1.73m^2); Globulin 4.6 g/dL; Glucose 116 mg/dL (74-106); Potassium 3.4 mmol/L (3.5-5.1); Sodium 138 mmol/L (136-145); Total Protein 8.2 g/dL (6.4-8.2)
[2024-12-22 23:04] LABS: Lactate/Lactic Acid 2.3 mmol/L (0.4-2.0)
[2024-12-22] MEDS: MORPHINE SULFATE 4 MG/ML VIAL IV (23:52)
[2024-12-23 00:09] LABS: Glucose Urine UA NEGATIVE (NEGATIVE)
[2024-12-23 00:16] LABS: Cast Seen? NONE SEEN #/LPF (NONE SEEN); Crystals Seen? Seen #/HPF (None Seen); Urine Culture Indicated YES-FRMC
[2024-12-23 01:27] VITALS: BP 108/76; PULSE 88; O2SAT 96
[2024-12-23 02:07] LABS: Lactate/Lactic Acid 1.8 mmol/L (0.4-2.0)
== END 2024-12-23 03:05 | disposition home or self-care (01) ==
PROVIDERS: Emergency Provider Internal Medicine; PCP Family Medicine
DX: N13.6 Pyonephrosis (principal); Z87.442 Personal history of urinary calculi; F17.290 Nicotine dependence, other tobacco product, uncomplicated
CPT/HCPCS: 36415; 74176; 80053; 81001; 83605; 85025; 87086; 96361; 96365; 96372; 96375; 99284; J0696; J1885; J2270; J2360; J2405

== ENCOUNTER 2024-12-24 14:32 | Outpatient (OUT) | payer OTHER, SELFPAY ==
--- OUTSIDE RECORDS SUMMARY | 2024-12-23 19:36 | XMS_ITS | Continuity of Care Document ---
Author Organization [facility] Address [address] [place] [address] Phone Care Team Providers Care Operator Specialist Communications Name Role Phone Soy Urena DO Attending Provider Blane Beavers DO Primary Care Provider Jesse Ba MD Attending Provider Tana Tellez Attending Provider Tiffany Brar DO Emergency Provider Yosvany Wyman MD Attending Provider + Samir Curran MD Attending Provider [phone] Care Teams Visit Care Team Team Status: Inactive Member Role/Relationship Status Dates Soy Urena DO Attending Provider Active St art: September 26, 2024 End: September 26, 2024 Visit Care Team Team Status: Inactive Member Role/Relationship Status Dates lBane Beavers DO Primary Care Provider Active Start: October 04, 2024 End: October 04, 2024Janeen Romano ProviderActiveStart: October 04, 2024 End: October 04, 2024 Visit Care Team Team Status: Inactive Member Role/Relationship Status Dates LEO Earl Attending Provider Active Start: October 10, 2024 End: October 10, 2024Kay Salgado Care ProviderActiveStart: October 10, 2024 End: October 10, 2024 Visit Care Team Team Status: Active Member Role/Relationship Status Dates Blane Beavers DO Primary Care Provider Active Start: October 21, 2024 Suresh Earl ProviderActiveStart: October 21, 2024 Visit Care Team Team Status: Inactive Member Role/Relationship Status Dates Blane Beavers DO Primary Care Provider Active Start: October 23, 2024 End: October 23, 2024PaJaneen Harris ProviderActiveStart: October 23, 2024 End: October 23, 2024 Visit Care Team Team Status: Inactive Member Role/Relationship Status Dates Blane Beavers DO Primary Care Provider Active Start: November 11, 2024 End: November 11, 2024Janeen Romano ProviderActiveStart: November 11, 2024 End: November 11, 2024 Visit Care Team Team Status: Inactive Member Role/Relationship Status Dates Blane Beavers DO Primary Care Provider Active Start: November 12, 2024 End: November 12, 2024Esteban Jackson ProviderActiveStart: November 12, 2024 End: November 12, 2024Janeen Michael ProviderActive Start: November 12, 2024 End: November 12, 2024 Patient Care Team Team Status: Inactive Member Role/Relationship Status Dates Samir Curran MD Attending Provider Active St art: December 22, 2024 End: December 22, 2024 Chief Complaint and Reason for Visit Chief Complaint Admit Date Unknown September 26, 2024 12: 19pm N20.0 N12 October 04, 2024 10 :47am NEW thrombocytopenia October 10, 2024 1 0:59am thrombocytopenia October 21, 2024 8:58am N20.0, R31.0 October 23, 2024 11:20am Urinary Tract Infection / UTI November 11, 2024 9:16am right side pain, fever, nausea, chest pa in November 12, 2024 2:24pm Unknown December 22, 2024 1 0:42pm Reason for Visit Admit Date Bleeding October 10, 2024 10 :59am Iron deficiency October 10, 2024 10 :59am Leukocytosis October 10, 2024 10 :59am Thrombocytosis October 10, 2024 10 :59am Acute urinary tract infection November 12, 2024 2:24pm Ureteral stone with hydronephrosis Septe mber 2024 2:24pm Allergies, Adverse Reactions, Alerts Allergen Type Severity Reaction Last Updated Verified Status Comments nuva ring Allergy Unknown Unknown Reaction October 10, 2024 10:18am No Active suicidal ideation Social History Smoking Status Status Start Date End Date Date of Observa tion Never smoked tobacco (finding) November 12, 2024 4:21pm Observation Status Observation Response Date of Response Legal Sex Female (finding) [facility] Family History Relationship Condition Age at Onset Recorded Date/T alan mother Diabetes mellitus Unknown fatherHypertensionUnknownMalignant neoplasm of prostateUnknown Problems Active Problems Problem Diagnosis/Recorded Date Onset Date Status C omments Bleeding October 10, 2024 11:40am Unknown Active LeukocytosisAugust 2024 11:51amUnknownActiveUreteral stone with hydronephrosisSeptember 2024 3:20pmUnknownActiveThrombocytosisAugust 2024 11:51amUnknownActiveAcute urinary tract infectionSeptember 2024 4:46pmUnknownActiveIron deficiencyAugust 2024 1:16pmUnknownActive Inactive/Resolved Problems Problem Diagnosis/Recorded Date Onset Date Status C omments Urinary tract infection March 14, 2017 1:17pm Unknown Resolved Proble m List clean-up per request of Phys. EHR Cmte Hyperemesis gravidarum March 14, 2017 12:31pm Unknown Resolved Probl em List clean-up per request of Phys. EHR Cmte October 08, 2017 12:35pm Unknown Resolved Problem List clean-up per request of Phys. EHR Cmte Asymptomatic bacteriuria in January 20, 2020 7:37pm Unknown Resolved Proble m List clean-up per request of Phys. EHR Cmte Nausea and vomiting January 20, 2020 7:37pm Unknown R esolved Problem List clean-up per request of Phys. EHR Cmte Medications Medication Status Dose Units Route Directions Qty Days Refills S tart Date Stop Date End Date Reason(s) Instructions Adherence Cephalexin (Keflex) 500 mg capsule Discontinued 500 MG PO Twice daily 20 10 0 March 14, 2017 12:00am March 23, 2017 12:00am March 24, 2017 12:04am space evenly during waking hoursOndansetron (Zofran Odt) 4 mg tablet,oyezzafngixlfkOjkwmrwkvlur6TWLSP6Y as needed for nausea and wynebpfb776 March 14, 2017 12:00amAugust 2017 8:40amSertraline 100 mg tabletActive 100MGPODaily at bedtimeJuly 2020 11:00pmUnknownFerrous Sulfate 325 mg (65 mg iron) hcpbhyIkgymzdrudww348KUFVIhnsx42837Tagr 2020 11:00pmAugust 2024 10:14amIbuprofen 600 mg hvdlktAvtjzoacnnex912PAQOMqvii 6 hours as needed for nmkf451Yghi 2020 11:00pmAugust 2024 10:14amdo not exceed 4 doses in a 24 hour periodKetorolac 10 mg hbxdavKmaqoy32YPWVQvehp 8 hours as needed for hjfx816Vuwgutdmu 2024 11:00pmmaximum total duration of 5 days from all oral, intranasal, or parenteral formulationsUnknownCiprofloxacin Hcl 500 mg amynhyGdkypb721WHQNSbrzu 12 goyez8889Eiwuaulhu 2024 11:00pmUnknown Phenazopyridine (Pyridium) 100 mg nryxhiJsreeq936USZYXejka times daily as needed for fysf296Xtvpugcyx 2024 11:00pmUnknownOxybutynin Chloride 5 mg tablet extended release 33jlSbarhg4OULLPrkjx999Ynvkmuuoe 2024 11:00pmUnknown Tramadol 50 mg itexvhMlwehswttdtx15PKURJ6B as needed for ifbw9805Aifoef 2017 11:00pmDece2019 4:54pmOther acute postprocedural painIbuprofen 600 mg npealtByiyzxxphtjr228WEVDLkehn 6 hours as needed for bacw026Zlyqwe 2017 11:00pmDece2019 4:54pmdo not exceed 4 doses in a 24 hour period Ondansetron 4 mg Tablet,KkrtbdymelmerjJsnodjkibdrk8LZYBN1HTspapafu 2019 12:00amJuly 2020 10:03pmCephalexin (Keflex) 250 mg cndpnseUwslzakfickr827 MGPOFour times yvish9013ZrdlvkbmJanuary 20, 2020 12:00amJuly 2020 10:04pm Metoclopramide Hcl (Reglan) 10 mg aaheppUbdozvnvuddg65FLIGS8I as needed for nausea and xwpkqlrn704Ppymufta 1st, 2020 12:00amJuly 2020 10:03pm Lamotrigine (Lamictal) 100 mg jxeoomFxkwcn965VOYRFpubjQyqggh 2024 11:00pm UnknownCariprazine (Vraylar) 3 mg mtaqvktYyfgbp8WICBQkudwWcgous 2024 11:00pmUnknownOndansetron 8 mg tablet,vrpjncbqdrdkysAvelpg0FTPGUggxu 8 hours as needed for nausea and dyeidklm440Mofdpe 21st, 2025 11:00pmUnknownPromethazine 25 mg txmjalIrnpsvlilcfb33RVXZNhrnz 6 hours as needed for nausea and ttqpoegx416 October 09, 2024 11:00pmSeptember 2024 1:11pm Immunizations Immunization Event Date Not Given Reason Dose Number Patient Placement Coordinator Lot Number Reason(s) Given Vaccine Information Statement (VIS) Detail Administration Location Tetanus, Diphtheria, Pertussis (Tdap) [id number] Device Date Implanted Device Details Polymeric ureteral stent November 12, 2024 UD I: [id number] Issuing Agency: [facility] Device Id: [id number] Expiration Date: 2028-08-14 Lot Number: [id number] Procedures Procedure Date Performed Status XR chest 2V* October 04, 2024 10:09am comple richi Urine Culture October 23, 2024 completed Urine Culture November 11, [address] abdomen pelvis wo con November 12, 2024 10 :04am completed Blood Culture November 12, 2024 completed Blood Culture November 12, 2024 completed Urine Culture November 12, 2024 completed Urine Culture November 12, 2024 completed OR Cysto/Retro/Stent/Stone/H olmium Laser (Right) November 12, 2024 3:40pm completed Urine Culture December 22, 2024 active Relevant Diagnostic Tests and/or Laboratory Data Laboratory Results Test Collection Date/Time Result Date/Time Result Interpretation Reference Range Result Comment Performing Site Corrected White Blood Count October 04, 2024 9:59am October 04, 2024 12:12pm 12.3 10*3/uL Above high normal 3.8-11.[address] [facility] [id number] [address] [facility] 71547Ebpqqirfg White Blood CountAugust 2024 1:10pmAugust 2024 1:31pm9.4 10*3/uL3.8-11.6[facility] [id number] [address] [facility] 67973Llshumdqt White Blood CountSeptember 2024 10:53am November 12, 2024 11:06am12.6 10*3/uLAbove high normal3.8-11.6[facility] [id number] [address] [facility] 04841Blposkpihxc WBC CountAugust 2024 9:59amAugust 2024 12:12pm12.3 10*3/uLAbove high normal3.8-11.6[facility] [id number] [address] [place] [address] 95543Ripfnhprfht WBC CountAugust 2024 1:10pmAugust 2024 1:31pm9.4 10*3/uL3.8-11.6[facility] [id number] [address] [facility] 75248Kgfrxcrrjhk WBC CountSeptember 2024 10:53amSeptember 2024 11:06am12.6 10*3/uLAbove high normal3.8-11.6[facility] [id number] [address] [place] [address] 90685Kcf Blood CountAugust 2024 9:59amAugust 2024 12:12pm4.20 10*6/uL3.60-5.00[facility] [id number] [address] [facility] 20500Jaq Blood CountAugust 2024 1:10pmAugust 2024 1:31pm 4.32 10*6/uL3.60-5.00[facility] [id number] [address] [place] [address] 86502Nil Blood CountSeptember 2024 10:53amSeptember 2024 11:06am3.73 10*6/uL3.60-5.00[facility] [id number] [address] [place] [address] 26003SrlpycmrnmNhgtmn 2024 9:59amAugust 2024 12:12pm11.1 g/dLBelow low cqeemr47.8-15.4[facility] [id number] [address] [place] [address] 02139DtayohybleFnizwu 2024 1:10pmAugust 2024 1:31pm11.6 g/dLBelow low kqhuzm93.8-15.[address] [place] [address] C[address] [id number] [address] [place] [address] 17022TtxutjwbiiCmwpqkqsb 2024 10:53amSeptember 2024 11:06am10.5 g/dLBelow low .8-15.[address] [place] [address] C[address] [id number] [address] [place] [address] 35215SfliowunwzOozcqr 2024 9:59amAugust 2024 12:12pm33.2 %Below low .0-46.[address] [place] [address] C[address] [id number] [address] [place] [address] 29612NjhafqwenbPoqnvh 2024 1:10pmAugust 2024 1:31pm34.5 %34.0-46.4[facility] [id number] [address] [place] [address] 59635QqrpluchcvSztcdwcgf 2024 10:53amSeptember 2024 11:06am30.9 %Below low .0-46.4[facility] [id number] [address] [place] [address] 68722Mzaz Corpuscular VolumeAugust 2024 9:59amAugust 2024 12:12pm79.1 fLBelow low zjdcor00-903IprmsdvxnMount [facility] [id number] [address] [facility] 45520Vchx Corpuscular VolumeAugust 2024 1:10pmAugust 2024 1:31pm79.8 fLBelow low iamblt11-660MywaspexkMount St. [facility] [id number] [address] [facility] 65771Lpmq Corpuscular VolumeSeptember 2024 10:53amSeptember 2024 11:06am82.7 aL71-056NhweudlbcMount St. [facility] [id number] [address] [facility] 87168Jiqe Corpuscular HemoglobinAugust 2024 9:59amAugust 2024 12:12pm26.5 pg24.7-34.[address] [place] [address] Ctr [id number] [address] [facility] 30137Fule Corpuscular HemoglobinAugust 2024 1:10pmAugust 2024 1:31pm26.9 pg24.7-34.[address] [place] [address] Ctr [id number] [address] [place] [address] 21632Dysf Corpuscular HemoglobinSeptember 2024 10:53am November 12, 2024 11:06am28.1 pg24.7-34.[address] [place] [address] Ctr [id number] [address] [place] [address] 52455Revn Corpuscular Hemoglobin ConcentAugust 2024 9:59am October 04, 2024 12:12pm33.6 g/dL32.0-35.0[facility] [id number] [address] [place] [address] 71419Cfoh Corpuscular Hemoglobin ConcentAugust 2024 1:10pm October 17, 2024 1:31pm33.7 g/dL32.0-35.0[facility] [id number] [address] [place] [address] 82559Uqex Corpuscular Hemoglobin ConcentSeptember 2024 10:53am November 12, 2024 11:06am34.0 g/dL32.0-35.0[facility] [id number] [address] [facility] 77866Rrg Cell Distribution WidthAugust 2024 9:59amAugust 2024 12:12pm17.0 %Above high nudcjt64.9-15.3[facility] [id number] [address] [facility] 02648Ppc Cell Distribution WidthAugust 2024 1:10pmAugust 2024 1:31pm18.9 %Above high .9-15.3[facility] [id number] [address] [place] [address] 65879Yle Cell Distribution WidthSeptember 2024 10:53am November 12, 2024 11:06am20.1 %Above high jlsesa07.9-15.3[facility] [id number] [address] [facility] 39928Dvaecczh CountAugust 2024 9:59ugu2024 12:17pm 1082 10*3/uLAbove upper panic qcmide042-573Ggwpdn to reach provider for critical result. house calls nurse physician unable to take result. Results faxed. Faxed Results to [phone] at 1316 on 10/04/24[facility] [id number] [address] [place] [address] 51938Idxzvqjv CountAugust 2024 1:10pmAugust 2024 1:31pm 509 10*3/uLAbove high gamegb081-325YvdrtreqwMount St. [facility] [id number] [address] [place] [address] 20275Vbhojlnh CountSeptember 2024 10:53amSeptember 2024 11:65am997 10*3/uLAbove high fwdkye086-046WjyrrhtnmMount [facility] [id number] [address] [place] [address] 30300Qrac Platelet VolumeAugust 2024 9:59amAugust 2024 12:12pm6.9 fL6.3-10.7[facility] [id number] [address] [facility] 52722Suwk Platelet VolumeAugust 2024 1:10pmAugust 2024 1:31pm7.3 fL6.3-10.7[facility] [id number] [address] [facility] 97709Jvpl Platelet VolumeSeptember 2024 10:53amSeptember 2024 11:06am6.9 fL6.3-10.7[facility] [id number] [address] [facility] 17430Mhmbcypy Distribution WidthSeptember 2024 10:53am November 12, 2024 11:06am23.62 %Above high normal0.00-20.00For adults in ED, MDW > 20.0 may be associated with a higher risk of sepsis during the first 12 h rs [address] [facility] [id number] [address] [facility] 65463Npenazbvepp (%) (Auto)October 04, 2024 9:59amAugust 2024 12:12pm62.[address] [id number] [address] [facility] 93821Cexwcibskjt (%) (Auto)October 17, 2024 1:10pmAugust 2024 1:31pm54.[address] [id number] [address] [facility] 16086Srnoxsubexx (%) (Auto)November 12, 2024 10:53amSeptember 2024 11:06am69.[address] [id number] [address] [facility] 25776Exounwtgofv (%) (Auto)October 04, 2024 9:59amAugust 2024 12:12pm27.[address] [id number] [address] [facility] 24773Kpazdmejvzd (%) (Auto)October 17, 2024 1:10pmAugust 2024 1:31pm34.[address] [id number] [address] [place] [address]Nuafipoefze (%) (Auto)November 12, 2024 10:53amSeptember 2024 11:06am22.1 %.[facility] [id number] [address] [facility] [place] [address]Azmoeqqag (%) (Auto)October 04, 2024 9:59amAugust 2024 12:12pm4.[address] [id number] [address] [facility] [place] [address]Tyjzjffmy (%) (Auto)October 17, 2024 1:10pmAugust 2024 1:31pm6.4 %.[facility] [id number] [address] [facility] [place] [address]Xxvmiypnk (%) (Auto)November 12, 2024 10:53amSeptember 2024 11:06am6.[address] %.[facility] [id number] [address] [facility] [place] [address]Cmqwzlmptaj (%) (Auto)October 04, 2024 9:59amAugust 2024 12:12pm3.7 %.[facility] [id number] [address] [facility] [place] [address]Spfslvvkdwj (%) (Auto)October 17, 2024 1:10pmAugust 2024 1:31pm4.4 %.[facility] [id number] [address] [facility] [place] [address]Swkupdzkbul (%) (Auto)November 12, 2024 10:53amSeptember 2024 11:06am1.[address] [id number] [address] [facility] [place] [address]Fphmvcala (%) (Auto)October 04, 2024 9:59amAugust 2024 12:12pm1.[address] [id number] [address] [facility] [place] [address]Aeobvclaa (%) (Auto)October 17, 2024 1:10pmAugust 2024 1:31pm1.[address] [id number] [address] [facility] [place] [address]Pprbzbxhm (%) (Auto)November 12, 2024 10:53amSeptember 2024 11:06am1.[address] [id number] [address] [facility] 04898Gidwpqywq RBC Relative Count (auto)October 04, 2024 9:59am October 04, 2024 12:12pm0.0 /100{WBC}0-0.5[facility] [id number] [address] [facility] 48952Jplgglfvp RBC Relative Count (auto)October 17, 2024 1:10pm October 17, 2024 1:31pm0.0 /100{WBC}0-0.5[facility] [id number] [address] [facility] 44358Vmfxnkhuj RBC Relative Count (auto)November 12, 2024 10:53am November 12, 2024 11:06am0.0 /100{WBC}0-0.5[facility] [id number] [address] [facility] 66783Odktxevznvp # (Auto)October 04, 2024 9:59amAugu2024 12:12pm7.7 10*3/uL1.8-7.7[facility] [id number] [address] [place] [address] 52956Hhfjxbmvggd # (Auto)October 17, 2024 1:10pmAugust 2024 1:31pm5.1 10*3/uL1.8-7.7[facility] [id number] [address] [place] [address] 94417Pxnuajeszbt # (Auto)November 12, 2024 10:53amSeptember 2024 11:06am8.7 10*3/uLAbove high normal1.8-7.7FM[facility] [id number] [address] [place] [address] 83576Ystewlpexdx # (Auto)October 04, 2024 9:59amAugust 2024 12:12pm3.4 10*3/uL1.00-4.8[facility] [id number] [address] [place] [address] 86144Ehfrlzgyybl # (Auto)October 17, 2024 1:10pmAugust 2024 1:31pm3.2 10*3/uL1.00-4.8[facility] [id number] [address] [facility] 51090Mtkrkncpjfh # (Auto)November 12, 2024 10:53amSeptember 2024 11:06am2.8 10*3/uL1.00-4.8[facility] [id number] [address] [facility] 635[address]Pnrfniavd # (Auto)October 04, 2024 9:59amAugust 2024 12:12pm0.6 10*3/uL0.0-0.8[facility] [id number] [address] [facility] 88167Acrqxzjrf # (Auto)October 17, 2024 1:10pmAugust 2024 1:31pm0.6 10*3/uL0.0-0.8[facility] [id number] [address] [place] [address] 60499Xvpyaxpjw # (Auto)November 12, 2024 10:53amSeptember 2024 11:06am0.8 10*3/uL0.0-0.8[facility] [id number] [address] [place] [address] 21782Ryemrfrhejk # (Auto)October 04, 2024 9:59amAugust 2024 12:12pm0.5 10*3/uLAbove high normal0.0-0.45[facility] [id number] [address] [facility] 29530Dixjwpfyisb # (Auto)October 17, 2024 1:10pmAugust 2024 1:31pm0.4 10*3/uL0.0-0.45[facility] [id number] [address] [place] [address] 44999Ywytdpfrqkn # (Auto)November 12, 2024 10:53amSeptember 2024 11:06am0.2 10*3/uL0.0-0.45[facility] [id number] [address] [facility] 79501Dmienbwia # (Auto)October 04, 2024 9:59amAugust 2024 12:12pm0.2 10*3/uL0.0-0.2[facility] [id number] [address] [facility] 03058Relesvsha # (Auto)October 17, 2024 1:10pmAugust 2024 1:31pm0.1 10*3/uL0.0-0.2[facility] [id number] [address] [facility] 06066Rsyifqhxb # (Auto)November 12, 2024 10:53amSeptember 2024 11:06am0.1 10*3/uL0.0-0.2[facility] [id number] [address] [facility] 10096Qyv Blood Cell MorphologyAugust 2024 9:30amAugu2024 11:13amN/[facility] [id number] [address] [facility] 48769Box Blood Cell MorphologyAugust 2024 9:59amAugust 2024 12:17pmN/[facility] [id number] [address] [facility] 60525DpyodgrkjpkbGrvupk 2024 9:30amAugu2024 11:13am ModerateMount [address] [facility] [id number] [address] [place] [address] 90337XquizjniyjvbZpfpbd 2024 9:59amAugust 2024 12:17pm ModerateMount [facility]. [facility] [id number] [address] [facility] 92076Sgmhdznr EstimateAugust 2024 9:30amAugu2024 11:13amIncreasedNormOhioHealth [facility] [id number] [address] [facility] 21478Mbxcpcia EstimateAugust 2024 9:59amAugust 2024 12:17pmIncreasedNormOhioHealth [facility] [id number] [address] [facility] 81817Yqogyvrz Morphology CommentAugust 2024 9:30amAugu2024 11:13amNormalNormOhioHealth [facility] [id number] [address] [facility] 39469Jzwmxubb Morphology CommentAugust 2024 9:59amAugust 2024 12:17pmNormalNormalMount St. [facility] [id number] [address] [facility] 24644JFX CommentAugust 2024 9:30amAugu2024 11:14amSee commentThrombocytosis is often reactive in nature. If the thrombocytosis remains persistent and unexplained for greater than 3 months, recommend additional hematologic work-up or hematology consultation as clinically indicated. Slide referred to pathologist for review[facility] [id number] [address] [facility] 47816Xvdeft for Pathologist ReviewAugust 2024 9:302024 11:16amOrdered path reviewMount St. [facility] [id number] [address] [facility] 40174Xywwqpwcc Time International RatioAugust 2024 1:10pm October 17, 2024 1:33pm1.0INR Therapeutic Range A) Pre- and Peroperative OAT started two weeks before surgery. NOT HIP SURGERY: 1.5 - 2.5 HIP SURGERY: 2 - 3B) Primary and secondary prevention of venous THROMBOSIS: 2 - 3C) Active venous thrombosis, pulmonary embolismand prevention of recurrent venous thrombosis: 2 - 3D) Prevention of arterial thromboembolismincluding patients with mechanical heart valves: 3 - 4.5[facility] [id number] [address] [facility] 32722Cdnfe ColorSeptember 2024 10:20amSeptember 2024 12:54pmLight-orangeAbnormal (applies to non-numeric results)YellowMount [facility]. [facility] [id number] [address] [place] [address] 25910Bisml ColorSeptember 2024 8:17amSeptember 2024 2:05pmYellowYellowMount St. [facility] [id number] [address] [facility] 37854Mgxlt ColorSeptember 2024 10:33amSeptember 2024 10:44amYellowYellowMount St. [facility] [id number] [address] [facility] 41289Lfwrq AppearanceSeptember 2024 10:20amSeptember 2024 12:54pmCloudyAbnormal (applies to non-numeric results)[facility] [id number] [address] [facility] 44840Rsnwz AppearanceSeptember 2024 8:17amSeptember 2024 2:05pmCloudyAbnormal (applies to non-numeric results)[facility] [id number] [address] [facility] 33469Kibjf AppearanceSeptember 2024 10:33amSeptember 2024 10:44amCloudyAbnormal (applies to non-numeric results)[facility] [id number] [address] [facility] 89581Anggf Specific GravitySeptember 2024 10:20amSeptember 2024 12:54pm1.0211.001-1.030[facility] [id number] 1[address] [facility] 69660Axjjv Specific GravitySeptember 2024 8:17amSeptember 2024 2:05pm1.0301.001-1.030[facility] [id number] [address] [facility] 24325Lddew Specific GravitySeptember 2024 10:33amSeptember 2024 10:44am1.032Above high normal1.001-1.030[facility] [id number] [address] [facility] 32143Hkrhk pHSeptember 2024 10:20amSeptember 2024 12:54pm 6.55.0-9.0[facility] [id number] [address] [facility] 35840Ryjfa pHSeptember 2024 8:17amSeptember 2024 2:05pm 6.55.0-9.0[facility] [id number] [address] [facility] 51587Srppk pHSeptember 2024 10:33amSeptember 2024 10:44am6.55.0-9.0Firla montes [facility] [id number] [address] [facility] 41676Iwimv Leukocyte EsteraseSeptember 2024 10:20amSeptember 2024 12:54pm4+Above high normalNegativeFirelands [facility] [id number] [address] [facility] 72903Hrxsn Leukocyte EsteraseSeptember 2024 8:17amSeptember 2024 2:05pm3+Above high normalNegativeFirelands [facility] [id number] [address] [facility] 93638Bcdyi Leukocyte EsteraseSeptember 2024 10:33amSeptember 2024 10:44am4+Above high normalNegative[facility] [id number] [address] [facility] 09140Fssbv NitriteSeptember 2024 10:20amSeptember 2024 12:54pmNegativeNegativeMount [address]. [facility] [id number] [address] [facility] 01878Ujxsb NitriteSeptember 2024 8:17amSeptember 2024 2:05pmNegativeNegativeMount [facility]. [facility] [id number] [address] [facility] 76708Yosnz NitriteSeptember 2024 10:33amSeptember 2024 10:44amNegativeNegative[address] [facility] [id number] [address] [facility] 94629Fyiwi ProteinSeptember 2024 10:20amSeptember 2024 12:54pm50 mg/dLAbove high normalNegativeAtrium [facility] [id number] [address] [facility] 20363Hbdzk ProteinSeptember 2024 8:17amSeptember 2024 2:05pm70 mg/dLAbove high normalNegativeFirelands [facility] [id number] [address] [facility] 96897Lxqcb ProteinSeptember 2024 10:33amSeptember 2024 10:44am70 mg/dLAbove high normalNegativeMount [facility]. [facility] [id number] [address] [facility] 61475Rkmhv Glucose (UA)October 23, 2024 10:20amSeptember 2024 12:54pmNormal mg/dLNormalMount St. [facility] [id number] 1[address] [facility] 16642Jkhwf Glucose (UA)November 11, 2024 8:17amSeptember 2024 2:05pmNormal mg/dLNormalMount St. [facility] [id number] [address] [facility] 46761Xhlsw Glucose (UA)November 12, 2024 10:33amSeptember 2024 10:44amNormal mg/dLNormalMount St. [facility] [id number] [address] [facility] 65306Qphzj KetonesSeptember 2024 10:20amSeptember 2024 12:54pmNegativeNegativeMount [facility]. [facility] [id number] 1[address] [facility] 20173Jxsfj KetonesSeptember 2024 8:17amSeptember 2024 2:05pmNegativeNegativeMount [facility]. [facility] [id number] [address] [facility] 56696Ltaus KetonesSeptember 2024 10:33amSeptember 2024 10:44amNegativeNegative[address] [facility] [id number] 1[address] [facility] 04996Mwhqn UrobilinogenSeptember 2024 10:20amSeptember 2024 12:54pmNormal mg/dLNormalMount St. [facility] [id number] 1[address] [facility] 29950Qnwws UrobilinogenSeptember 2024 8:17amSeptember 2024 2:05pm2 mg/dLAbove high normalNormalMount St. [facility] [id number] 1[address] [facility] 06541Ipddz UrobilinogenSeptember 2024 10:33amSeptember 2024 10:44am2 mg/dLAbove high normalNormalMount St. [facility] [id number] 1[address] [facility] 87150Wnbsu BilirubinSeptember 2024 10:20amSeptember 2024 12:54pmNegativeNegativeMount [facility]. [facility] [id number] [address] [facility] 46668Hehvd BilirubinSeptember 2024 8:17amSeptember 2024 2:05pmNegativeNegativeMount [facility]. [facility] [id number] [address] [facility] 13982Sjzhf BilirubinSeptember 2024 10:33amSeptember 2024 10:44amNegativeNegative[address] [facility] [id number] [address] [facility] 44918Fveht Occult BloodSeptember 2024 10:20amSeptember 2024 12:54pm3+Above high normalNegativeMount [facility] [id number] 1[address] [facility] 69711Odnom Occult BloodSeptember 2024 8:17amSeptember 2024 2:05pm1+Above high normalNegative[facility] [id number] 1[address] [facility] 64504Gusjf Occult BloodSeptember 2024 10:33amSeptember 2024 10:44am2+Above high normalNegativeMount [facility] [id number] 1[address] [facility] 68635Asmjg RBCSeptember 2024 10:20amSeptember 2024 1:06pm Innumerable [HPF]Above high normal0-4FMari[facility] [id number] 1[address] [facility] 57783Uhjiq RBCSeptember 2024 8:17amSeptember 2024 2:14pm 10-19 [HPF]Above high normal0-4FMarietta [facility] [id number] 1[address] [facility] 09204Ilrzq RBCSeptember 2024 10:33amSeptember 2024 10:83fx35-60 [HPF]Above high normal0-4FMarietta [facility] [id number] [address] [facility] 90712Fvmrh WBCSeptember 2024 10:20amSeptember 2024 1:06pm Innumerable [HPF]Above high normal[address] Ctr [id number] 1[address] [facility] 74405Vpomw WBCSeptember 2024 8:17amSeptember 2024 2:14pm 50-100 [HPF]Above high normal0-[address] [place] [address] Ctr [id number] 1[address] [facility] 88842Hqdvd WBCSeptember 2024 10:33amSeptember 2024 10:48amInnumerable [HPF]Above high normal0-[address] [place] [address] Ctr [id number] [address] [facility] 02864Jekls WBC ClumpsSeptember 2024 10:20amSeptember 2024 1:06pmMany [LPF]Above high normalNone [facility] [id number] [address] [facility] 67680Hvrqj WBC ClumpsSeptember 2024 10:33amSeptember 2024 10:48amFew [LPF]Above high normalNone [facility] [id number] [address] [facility] 26857Fxjhf Squamous Epithelial CellsSeptember 2024 10:20am October 23, 2024 1:88bf17-07 [HPF]Above high normal[address] Ctr [id number] 1[address] [facility] 77456Jhnaz Squamous Epithelial CellsSeptember 2024 8:17am November 11, 2024 2:71gx31-14 [HPF]Above high normal0-[address] [place] [address] Ctr [id number] 1[address] [facility] 00384Lqlqk Squamous Epithelial CellsSeptember 2024 10:33am November 12, 2024 10:32sx69-67 [HPF]Above high normal0-[address] [place] [address] Ctr [id number] [address] [facility] 27465Nwcrz BacteriaSeptember 2024 10:20amSeptember 2024 1:06pmRare [HPF]None [facility] [id number] [address] [facility] 58617Xvuia BacteriaSeptember 2024 8:17amSeptember 2024 2:14pm1+ [HPF]Above high normalNone [facility] [id number] [address] [facility] 93754Tknbs BacteriaSeptember 2024 10:33amSeptember 2024 10:48amRare [HPF]None SeenMount [facility] [id number] 1[address] [facility] 91593Plefu Hyaline CastsSeptember 2024 10:20amSeptember 2024 1:06pmNone [LPF]0-8[facility] [id number] [address] [facility] 65824Dhhtf Hyaline CastsSeptember 2024 8:17amSeptember 2024 2:43nf7-7 [LPF]0-8[facility] [id number] [address] [facility] 48467Qgesw Hyaline CastsSeptember 2024 10:33amSeptember 2024 10:48amNone [LPF]0-8[facility] [id number] [address] [facility] 71782Kjhss MucusSeptember 2024 10:20amSeptember 2024 1:06pmRare [LPF][facility] [id number] 1[address] [facility] 91466Cqxpg MucusSeptember 2024 8:17amSeptember 2024 2:14pm2+ [LPF]Abnormal (applies to non-numeric results)[facility] [id number] [address] [facility] 56984Yychz MucusSeptember 2024 10:33amSeptember 2024 10:48am4+ [LPF]Abnormal (applies to non-numeric results)[facility] [id number] [address] [facility] 01607Bocam SpermSeptember 2024 10:33amSeptember 2024 10:44ry9-6 [HPF]0-2FMarietta [facility] [id number] [address] [facility] 36631Yufdj HCG, QualitativeSeptember 2024 10:33amSeptember 2024 10:45amNegativeMount [facility]. [facility] [id number] [address] [facility] 07702Hbwudyq LevelAugust 2024 9:59amAugust 2024 10:57am 102 mg/dLAbove high vabhiw16-162IFW recommended reference rangeRandom Glucose Reference Range is dependent on time and content of last meal. Glucose of more than 200 mg/dL in a nonstressed, ambulatory subject supports the diagnosisof Diabetes Mellitus.[facility] [id number] [address] [facility] 86223Rfougqq LevelAugust 2024 1:10pmAugust 2024 1:39pm 105 mg/dLAbove high oykupt29-487CDS recommended reference rangeRandom Glucose Reference Range is dependent on time and content of last meal. Glucose of more than 200 mg/dL in a nonstressed, ambulatory subject supports the diagnosisof Diabetes Mellitus.[facility] [id number] [address] [place] [address] 22714Eeghpov LevelSeptember 2024 10:53amSeptember 2024 11:25am90 mg/uQ62-905HRQ recommended reference rangeRandom Glucose Reference Range is dependent on time and content of last meal. Glucose of more than 200 mg/dL in a nonstressed, ambulatory subject supports the diagnosisof Diabetes Mellitus.[facility] [id number] [address] [place] [address] 48173Suidu Urea NitrogenAugust 2024 9:59amAugust 2024 10:57am18 mg/dL09-12[facility] [id number] [address] [place] [address] 63560Togxi Urea NitrogenAugust 2024 1:10pmAugust 2024 1:39pm20 mg/dL-[facility] [id number] [address] [place] [address] 61719Oiqff Urea NitrogenSeptember 2024 10:53amSeptember 2024 11:25am15 mg/dL-[facility] [id number] [address] [facility] 53698GaqqjxhibxZximic 2024 9:59amAugust 2024 10:57am0.79 mg/dL0.60-1.20[facility] [id number] [address] [place] [address] 21352JuhngzhumiLqrotd 2024 1:10pmAugust 2024 1:39pm0.80 mg/dL0.60-1.20[facility] [id number] [address] [place] [address] 35045FfbibsqdqlRsybtkkcc 2024 10:53amSeptember 2024 11:25am1.13 mg/dL0.60-1.20[facility] [id number] [address] [place] [address] 53098Xjadeiywg GFR (CKD-EPI)October 04, 2024 9:59amAugust 2024 10:57am> 60.0 mL/MinMount [facility]. Mary [facility] [id number] [address] [place] [address] 66573Fnkukdojo GFR (CKD-EPI)October 17, 2024 1:10pmAugust 2024 1:39pm> 60.0 mL/MinMount [facility]. [facility] [id number] [address] [place], [place] [address]Estimated GFR (CKD-EPI)November 12, 2024 10:53amSeptember 2024 11:25am> 60.0 mL/MinMount [facility]. [facility] [id number] [address] [place] [address] 20467Kayuup LevelAugust 2024 9:59amAugust 2024 10:57am 138 mmol/X401-502WuhxwybkrMount St. [facility] [id number] [address] [place] [address] 36774Wftjro LevelAugust 2024 1:10pmAugust 2024 1:03xj975 mmol/O607-984VbedptkkyMount St. [facility] [id number] [address] [place] [address] 96317Okvols LevelSeptember 2024 10:53amSeptember 2024 11:80ex891 mmol/A673-778[facility] [id number] [address] [facility] 83121Uhuaapjxy LevelAugust 2024 9:59amAugust 2024 10:57am5.0 mmol/L3.5-5.1FMarietta [facility] [id number] 1[address] [facility] 68621Qekzevztx LevelAugust 2024 1:10pmAugust 2024 1:39pm 3.9 mmol/L3.5-5.1FMarietta [facility] [id number] [address] [facility] 43315Akrakmgyi LevelSeptember 2024 10:53amSeptember 2024 11:25am3.9 mmol/L3.5-5.1FMarietta [facility] [id number] 1[address] [facility] 78205Bvnlggnv LevelAugust 2024 9:59amAugust 2024 10:57am 101 mmol/R56-133YgdchldpxMount St. [facility] [id number] [address] [facility] 18461Cagnteqs LevelAugust 2024 1:10pmAugust 2024 1:39pm 102 mmol/W52-206XidvcnulkMount St. [facility] [id number] 1[address] [facility] 27927Jyrqjczt LevelSeptember 2024 10:53amSeptember 2024 11:99ev769 mmol/O50-588ElwzevsfzMount St. [facility] [id number] 1[address] [facility] 72756Wzbkop Dioxide LevelAugust 2024 9:59amAugust 2024 10:57am29.4 mmol/L21.0-31.0[facility] [id number] 1[address] [facility] 93303Jvjpex Dioxide LevelAugust 2024 1:10pmAugust 2024 1:39pm28.5 mmol/L21.0-31.0[facility] [id number] [address] [facility] 58449Onodqe Dioxide LevelSeptember 2024 10:53amSeptember 2024 11:25am27.7 mmol/L21.0-31.0[facility] [id number] [address] [facility] 15093Sbuwi GapAugust 2024 9:59amAugust 2024 10:57am12.6 mEq/L6.0-15.0[facility] [id number] [address] [facility] 98215Xswww GapAugust 2024 1:10pmAugust 2024 1:39pm11.4 mEq/L6.0-15.0[facility] [id number] 1[address] [facility] 55068Xmxvx GapSeptember 2024 10:53amSeptember 2024 11:25am12.2 mEq/L6.0-15.0[facility] [id number] [address] [facility] 10779Alxjjbr LevelAugust 2024 9:59amAugust 2024 10:57am 9.4 mg/dL8.6-10.3FMarietta [facility] [id number] 1[address] [facility] 01008Rxaxlni LevelAugust 2024 1:10pmAugust 2024 1:39pm 9.1 mg/dL8.6-10.3FMarietta [facility] [id number] [address] [facility] 75507Zmjpswh LevelSeptember 2024 10:53amSeptember 2024 11:25am9.1 mg/dL8.6-10.3FMarietta [facility] [id number] [address] [facility] 96193Lamlc ProteinAugust 2024 1:10pmAugust 2024 1:39pm 8.0 g/dL6.4-8.9[facility] [id number] [address] [facility] 45884Jgglf ProteinSeptember 2024 10:53amSeptember 2024 11:25am7.9 g/dL6.4-8.9[facility] [id number] 1[address] [facility] 12651NvuwkklSwjmxo 2024 1:10pmAugust 2024 1:39pm4.1 g/dL 3.5-5.7FMarietta [facility] [id number] 1[address] [facility] 97688JvvqnmiKmrfakktd 2024 10:53amSeptember 2024 11:25am 3.8 g/dL3.5-5.7FMarietta [facility] [id number] 1[address] [facility] 27018KgufvzdbBxfwnr 2024 1:10pmAugust 2024 1:39pm3.9 g/dLMount [facility]. [facility] [id number] 1[address] [facility] 88896EwzjjppwBjjkpulcq 2024 10:53amSeptember 2024 11:25am4.1 g/dLMount [facility]. [facility] [id number] 1[address] [facility] 19955Atojwyd/Globulin RatioAugust 2024 1:10pmAugust 2024 1:39pm1.1FMarietta [facility] [id number] 1[address] [facility] 10748Pacswls/Globulin RatioSeptember 2024 10:53amSeptember 2024 11:25am0.9[facility] [id number] [address] [facility] 55054Buzcz BilirubinAugust 2024 1:10pmAugust 2024 1:39pm 0.3 mg/dL0.3-1.0[facility] [id number] 1[address] [facility] 86956Gdbfw BilirubinSeptember 2024 10:53amSeptember 2024 11:25am0.5 mg/dL0.3-1.0[facility] [id number] [address] [facility] 78796Hvldcxcnq Amino Transf (AST/SGOT)October 17, 2024 1:10pmAugust 2024 1:39pm16 U/L58-10EhlmgggfyMount St. [facility] [id number] [address] [place] [address] 83930Plcmydocv Amino Transf (AST/SGOT)November 12, 2024 10:53am November 12, 2024 11:25am17 U/P23-11HbpiltliyMount St. Mary [facility] [id number] [address] [place] [address] 13966Gsqmclb Aminotransferase (ALT/SGPT)October 17, 2024 1:10pm October 17, 2024 1:39pm25 U/L7-52[facility] [id number] [address] [place] [address] 98762Xnctzal Aminotransferase (ALT/SGPT)November 12, 2024 10:53am November 12, 2024 11:25am36 U/L7-52[facility] [id number] [address] [place] [address] 25886Rjdaqdkt PhosphataseAugust 2024 1:10pmAugust 2024 1:67ym880 U/LAbove high uynzep68-444JiltwpyocMount St. [facility] [id number] [address] [place] [address] 03860Lqzkhkbo PhosphataseSeptember 2024 10:53amSeptember 2024 11:96yq245 U/LAbove high wxdilh79-266Klnqydnvo[address] [place] [address] Ctr [id number] [address] [place] [address] 30050Kuftckh DehydrogenaseAugust 2024 9:29amAugust 2024 11:20sm657 U/A884-024DzprfvpseMount St. [facility] [id number] [address] [place] [address] 49783RpcoaiGulutxsyo 2024 10:53amSeptember 2024 11:25am 21.0 U/L11.0-82.0[facility] [id number] [address] [place] [address] 57010Tamotl Acid LevelSeptember 2024 11:20amSeptember 2024 11:52am0.6 mmol/L0.5-1.9Lactic Acid reference range has been updated to 0.5 ??? 1.9 mmol/L and the critical range of 2.0 [facility] [id number] [address] [place] [address] 31214Laft LevelAugust 2024 9:292024 11:13am13 ug/dLBelow low -360BiglddgynMount St. [facility] [id number] [address] [place] [address] 11217Rdlfk Iron Binding CapacityAugust 2024 9:2024 11:37rs307 ug/lR664-072DjpqlfwkcMount St. [facility] [id number] [address] [place] [address] 21733Ncjn SaturationAugust 2024 9:292024 11:13am5.0 %Below low obyhgf79-74RwvbcewlkMount St. [facility] [id number] [address] [place] [address] 54982QvgxhuivvesPetfjp 2024 9:2024 11:00rk850 mg/dLBelow low uqqhlv988-373BhyoyrckbMount St. [facility] [id number] [address] [place] [address] 88305KnjmovclTejayf 2024 9:2024 11:96te428.8 ng/mLAbove high .0-306.8[facility] [id number] [address] [place] [address] 77050Rcnoiorb Creatinine Clearance (ChemAugust 2024 9:59am October 04, 2024 10:57amN/[facility] [id number] [address] [place] [address] 26084Bbwnauny Creatinine Clearance (ChemAugust 2024 1:10pm October 17, 2024 1:43cw334.34[facility] [id number] [address] [place] [address] 86126Erlmnmac Creatinine Clearance (ChemSeptember 2024 10:53am November 12, [address] [id number] [address] [place] [address] 39432JSX2 D435FTzacxk 2024 9:ugu2024 7:58amSee commentSee report. Scanned copy available in EMR.[facility] [id number] [address] [place] [address] 99171Ovlgu ImmunofixationAugust 2024 9:ugu2024 3:09pmComment.No monoclonality detected.[facility] G September 30, 2024 9:29ugu2024 3:81rz4568 mg/cN321-1194SzrVqai AA2024 9:29ugu2024 3:94om129 mg/dLAbove high -021SpcHypq MA2024 9:2024 3:89rz690 mg/yE11-012Lbkindnai at: - [facility] [address] [place], [place] [id number] Director: Jose Perea PhD, Phone: [phone] International Normalized RatioAugust 2024 1:10pmAugust 2024 3:08pm1.00.9-1.2Reference interval is for non-anticoagulated patients.Suggested INR therapeutic range for Vitamin Ka ntagonist therapy: Standard Dose (moderate intensity therapeutic range): 2.0 - 3.0 Higher intensitytherapeutic range 2.5 - 3.5[facility] TimeAugust 2024 1:10pmAugust 2024 3:08pm10.2 sec9.1-12.0[facility] Partial Thromboplast TimeAugust 2024 1:10pmAugust 2024 3:08pm25.4 sec22.9-30.2[facility] Factor VIII ActivityAugust 2024 1:10pmAugust 2024 3:70yi410 %Above high normal 56-140[facility] Willebrand Factor Ag NormalAugust 2024 1:10pmAugust 31st, 2025 3:30qz772 %50-200This test was developed and its performance characteristicsdetermined by [facility]. It has not been cleared orapproved by the Food and Drug Administration.[facility] Total ProteinAugus2024 9:2024 3:09pm7.5 g/dL6.0-8.5[facility] (Send Out)September 30, 2024 9:2024 3:09pm 2.4 g/dLBelow low normal2.9-4.4[facility] 12th, 2025 9:2024 3:09pm0.7 g/dLAbove high normal0.0-0.4[facility] 12th, 2025 9:2024 3:09pm 1.6 g/dLAbove high normal0.4-1.0[facility] Globulin2024 9:2024 3:09pm1.4 g/dLAbove high normal0.7-1.3[facility] Globulin2024 9:2024 3:09pm1.4 g/dL0.4-1.8[facility] Electrophoresis M-SpikeAugus2024 9:2024 3:09pmComment: g/dLNot ObservedSPE shows asymmetrical beta. Suggest serum MADAY and free lightchain analysis for further evaluation. [facility] (PEP)September 30, 2024 9:2024 3:09pm5.1 g/dLAbove high normal2.2-3.9[facility] /Globulin (PEP)September 30, 2024 9:2024 3:09pm0.5Below low normal0.7-1.7 [facility] Electrophoresis NoteAugust 2024 9:292024 3:09pmComment.Protein electrophoresis scan will follow via computer,mail, or pneumatic tube fitter delivery.Performed at: [place] [id number] [place], [place] [id number] Director: Jose Perea PhD, Phone: [phone] [facility] Willebrand Factor ActivityAugust 2024 1:10pm October 19, 2024 3:60yd397 %50-200Performed at: [address] [id number] Director: Dov óLpez MD, Phone: [phone] Free Kangle[place] Light ChainsAugust 2024 9:30amAugu2024 5:34sx514.80 mg/LAbove high normal1.17-86.46[facility] Free Lambda Light ChainsAugust 2024 9:30amAugu2024 5:22jx333.24 mg/LAbove high normal0.27-15.21[facility] Free [place]/Lambda Ratio 24 HrAugust 2024 9:30amAugu2024 5:36am3.98 1.83-14.26Performed at: [address] [id number] Director: Dov López MD, Phone: [phone] Microbiology Results Procedure Source Result Collection Date/Time Result Date/Time Result Comment Performing Site Blood Culture Blood, Left Antecubital NO GROWTH 5 DAYS November 12, 2024 12:20pm November 17, 2024 12:34pm [facility] [id number] [address] [facility] 34931Fejqs CultureBlood, Left AntecubitalNO GROWTH 5 DAYSSeptember 2024 12:57pmSeptember 2024 1:01pmMount [facility]. [facility] [id number] [address] [place] [address] 62118Pwtag CultureUrine, Clean-Voided Midstream2 DaysSept2024 11:20amSept2024 9:41amMount [facility] [id number] 1[address] [facility] 60197Lzzat CultureUrine, Clean-Voided Midstream2 DaysSeptember 2024 9:17amSept2024 10:51am[facility] [id number] [address] [place] [address] 54794Bucaz CultureUrine, Voided2 DaysSeptember 2024 11:33am November 14, 2024 9:54am[facility] [id number] [address] [place] [address] 01652Sfrvr CultureCystoscopicNo Growth 2 DaysSept2024 4:14pmSeptember 2024 9:58amMount [facility] [id number] [address] [place] [address] 13121 Diagnostic Imaging Reports Author José Manuel Sim [facility] Charles HospitalAuthoredAusierra vista hospital 2024 12:05pmReportDictated Date/TimeDictated ByStatusRadiology ReportAuinscription house health centert 2024 12:05pmJohuyen Sim Jr DOcomp[facility] [place] [address] [address] [place], [place] [id number] XRay Report Signed Patient: Emma Mahan MR#: [id number] : 1995 Acct:[id number] Age/Sex: 28 / F ADM Date: 5 Loc: [place] Room: Type: [facility] Attending Dr: Jesse Ba MD Copies to: [...] Impression dictated by: José Manuel Sim Jr., D.OJacob 10/04/2024 12:06 PM Dictation Location: RADIO-PC-[id number] Transcribed By: [facility] 10/04/24 1206 Dictated By: José Manuel Sim Jr, DO 10/04/24 120 Signed By: <Electronically signed by José Manuel Sim Jr, DO in OV> 10/04/24 1206 Author Lanre Sal [facility] HospitalAuthoredSeptember 2024 12:21pmReport Dictated Date/TimeDictated ByStatusRadiology ReportSeptember 2024 12:21pm Lanre Sal II [facility] [place] [address] [place] [address] CT Scan Report Signed Patient: Emma Mahan MR#: [id number] : 1995 Acct:[id number] Age/Sex: 28 / F ADM Date: 5 Loc: ER Room: Type: [facility] ER Attending Dr: Copies to: Tiffany Brar Do~ Ordering Provider: Tiffany Brar Do Date of Service: 11/12/24 CT/CT abdomen pelvis wo con: Abdominal Pain CT abdomen pelvis wo con 11/12/2024 12:07 PM SIGNS AND SYMPTOMS: Right flank pain, nausea and vomiting, chills, recent removal of a right ureteral stent. TECHNIQUE: Multidetector ct axial images of the abdomen and pelvis were obtained without IV contrast. Multiplanar reformats were performed and reviewed to further define anatomy and possible pathology. CT was performed with one or more of the following dose reduction techniques: Automated exposure control, adjustment of the mA and/or kV according to patient size, or use of iterative reconstruction technique. COMPARISON: 09/06/2024 FINDINGS: Lower Chest: There is linear consolidation in the right lung base with a small right-sided pleural effusion. This is new when compared to the prior exam. Mild atelectasis is noted in the left lung base. ABDOMEN: Liver: Within normal limits. Bile Ducts: Normal caliber. Gallbladder: No calcified gallstones. Normal caliber wall. Pancreas: Within normal limits. Spleen: Within normal limits. Adrenals: Within normal limits. Kidneys: There is right-sided hydronephrosis which is worsened compared to the prior exam. There is accompanying perinephric fat stranding hyperattenuating material is also noted along the right renal capsule which is new when compared to the prior exam. 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 There is evidence of interval fragmentation of the staghorn calculus in the right renal pelvis with the largest fragment measures 2 mm. A 5 mm stone in the proximal right ureter near the right ureteropelvic junction. There is a 6 mm fragment in the right renal pelvis at the right ureterovesical junction. Additional nonobstructing stones are redemonstrated in the left renal collecting system measuring up to 6 mm in greatest dimension. Pelvis: Reproductive Organs: No pelvic masses. Ureters: Within normal limits. Bladder: Within normal limits. Bowel: Normal caliber. Mesenteric Lymph Nodes: No enlarged mesenteric lymph nodes. Peritoneum: No ascites or free air, no fluid collection. Vessels: within normal limits Retroperitoneum: Within normal limits. Abdominal Wall: Within normal limits. Bones: Within normal limits. CT/CT abdomen pelvis wo con IMPRESSION: There is right-sided hydronephrosis which is worsened compared to the prior exam. There is accompanying perinephric fat stranding hyperattenuating material is also noted along the right renal capsule which is new when compared to the prior exam. Given the history of recent right-sided lithotripsy, this may repr esent a myxoma within the joint capsule. There is evidence of interval fragmentation of the staghorn calculus in the right renal pelvis with the largest fragment measures 2 mm. A 5 mm stone in the proximal right ureter near the right ureteropelvic junction. There is a 6 mm fragment in the right renal pelvis at the right ureterovesical junction. Additional nonobstructing stones are redemonstrated in the left renal collecting system measuring up to 6 mm in greatest dimension. There is linear airspace opacity at the right lung base presumably representing atelectasis. There is a small right-sided pleural effusion. These findings are new when compared to the prior exam. Impression dictated by: Lanre Sal M.D. 11/12/2024 12:34 PM Dictation Location: [place] [address] Transcribed By: GUIDO 11/12/24 1234 Dictated By: Lanre Sal II, MD 11/12/24 1221 Signed By: <Electronically signed by Lanre Sal II, MD in OV> 11/12/24 1234 Author Wayne Wylie [facility] HospitalAuthoredptbarrow neurological institute 2024 11:13pmReport Dictated Date/TimeDictated ByStatusFluoroscopySept2024 11:13pmWayne Wylie [facility] [place] [address] Fluoroscopy Report Signed Patient: Emma Mahan MR#: [id number] : 1995 Acct:[id number] Age/Sex: 28 / F ADM Date: 5 Loc: [place] Room: Type: [facility] Attending Dr: Yosvany Wyman MD Copies to: Yosvany Wyman MD~ Ordering Provider: Yosvany Wyman MD Date of Service: 11/12/24 FL/FL urethrocystogram retro: RETRO/CYSTO Intraoperative fluoroscopy INDICATION: Right-sided hydronephrosis with UPJ stone COMPARISON: CT abdomen pelvis Dose: 11 mGy FL/FL urethrocystogram retro Findings and impression: Intraoperative imaging demonstrates retrograde ureterogram. Subsequently placement of a of a guidewire and double-J J ureteral stent. Impression dictated by: Wayne Wylie M.D. 11/12/2024 11:16 PM Dictation Location: [facility]- Transcribed By: GUIDO 11/12/246 Dictated By: Wayne Wylie MD 11/12/243 Signed By: <Electronically signed by Wayne Wylie MD in OV> 11/12/24 2316 Vital Signs Vital Reading Result Reference Range Collection Date/Time Height 63 [in_i] October 10, 2024 9:12tzXnwpay09.73 kgAugust 2024 9:59amBody Temperature 97.5 [degF]97.6-99.0August 2024 9:59amHeart Qeer601 /jat30-014Sudaba 22nd, 2025 9:59amRespiratory rate16 /cfb50-81Chgcuc 22nd, 2025 9:59amOxygen saturation by Pulse awoojijm89 %95-100August 2024 9:59amBP Hojqyxip290 mm[Hg]100-140August 2024 9:59amBP Bmlibrlza61 mm[Hg]60-100August 2024 9:59amBMI (Body Mass Index)31.5 kg/n2Wbzndp2024 9:31yzNzrgyx93 [in_i]October 10, 2024 9:11nfUvvxnl70.73 kgAugus2024 9:59amBody Ojpsmcsizte83.9 [degF]97.6-99.0August 2024 1:17pmHeart Rate99 /cew53-427 October 17, 2024 1:17pmRespiratory rate20 /moy33-21KrdqksOctober 17, 2024 1:17pm Oxygen saturation by Pulse %95-100October 17, 2024 1:17pmBP Systolic 127 mm[Hg]100-140Augus2024 1:17pmBP Fjbqtclzb09 mm[Hg]60-100August 2024 1:32bzVyxzwp13 [in_i]November 12, 2024 1:14ucEvnjvt58.90 kgSeptember 2024 1:45pmBody Axsgmkalxgg38.8 [degF]97.6-99.0September 2024 3:23pm Heart Rate94 /azj48-201Mnbzyrqsb 2024 4:04pmRespiratory rate18 /ggs82-00 November 12, 2024 4:04pmOxygen saturation by Pulse cbensock28 %95-100 November 12, 2024 4:04pmBP Bnybpnkw633 mm[Hg]100-140September 2024 4:04pmBP Puhokjlwz29 mm[Hg]60-100September 2024 4:04pm Advance Directives Advance Directive Response Recorded Date/ Time Advance Directives No March 14, 2017 10:09am Insurance Providers Guarantor Emma Mahan Address [address] [address]Slfzckm Info.Home Phone: Coverage Status Update:2024 Payer Group Member ID Coverage Type Subscriber Relationship to Subscriber Effective Date Expiration Date MMO Id: [id number] J Mullins Id: [id number] [address] [address] Home Phone: Email: decline [id number] BC/AAKASH Id: [id number] R Fraser Id: [id number] [address] [address] Home Phone: Email: [email or web address] Id: [id number] J Mullins Id: [id number] [address] [address] Home Phone: Email: decline [phone] Pines Regional Medical Center [id number] J Mullins Id: [id number] [address] [address] Home Phone: Email: decline [phone] Encounters Encounter Location(s) Arrival/Admit Date Discharge/Departure Date Discharge/Departure Disposition Provider(s) Departed Referred -LAB [facility] September 26, 2024 12:19pm September 26, 2024 12:20pm Discharged to home care or self care (routine discharge) Soy Urena DO Departed Clinical -Lab [facility] October 04, 2024 10:47am October 04, 2024 10:48am Discharged to home care or self care (routine discharge) Jesse Ba MD Departed Physician/ Provider Office Visit -Cancer Center Ambulatory October 10, 2024 10:59am October 10, 2024 12:27pm Discharged to home care or self care (routine discharge) Tana Tellez NP-C Registered [facility] -Cancer Center Acute October 8:58am Tana Tellez NP-CDeparted Clinical-Lab [place] 11:20[place] October 23, 2024 11:21amDischarged to home care or self care (routine discharge)Jesse Ba , [facility] [place] 9:16amSept2024 9:17amDischarged to home care or self care (routine discharge)Jesse Ba , MDDeparted Surgical Day Care[facility]Sept[facility] 2:24pmSept2024 5:15pm Discharged to home care or self care (routine discharge)Yosvany Wyman , MDDeparted Referred-LAB [facility]2024 10:42pm December 22, 2024 10:43pmDischarged to home care or self care (routine discharge)Samir Curran MD Recent Diagnosis Onset Date Admit Date Bleeding Unknown October 10 10:59am Iron deficiency Unknown October 10 10:59am Leukocytosis Unknown October 10 10:59am Thrombocytosis Unknown October 10 10:59am Acute urinary tract infection Unknown Se pt2024 2:24pm Ureteral stone with hydronephrosis Unknown November 12, 2024 2:24pm Assessments Diagnosis Onset Date Resolution Status Admit Date Bleeding acuteAugust 2024 10:59amIron deficiencyacuteAugust 2024 10:59am LeukocytosisacuteAugust 2024 10:59amThrombocytosisacuteAugust 2024 10:59amAcute urinary tract infectionacuteSept2024 2:24pmUreteral stone with hydronephrosisacuteSept2024 2:24pm Plan of Treatment Author Tana Tellez [facility] 2024 12:05pmOverall picture would be clinically consistent with reactive changes/iron deficiency. Given history of neutrophilia, will order BCR-ABLE to rule out CML She is intolerant of oral iron. She develop with constipation with this. She did just have severe constipation for 10 days. She has iron deficiency. Recommend IV replacement- Ordered Dr. Arellano recommended Chest/Abdomen/Pelvis imaging given persistent nausea. Doesn't have zofran or phenergan at home. Will provide Rule out acquired Von Willebrand as cause for hematoma. consider Hydrea if Dr. Ba would be willing to do procedure if platelets were controlled - Labs at 4 days and 8 days Spent over 60 minutes on reviewing records, assessing patient, answering questions, and coordinating care. Future Tests Future scheduled test information is unavailable Pending Tests Test Name Ordered Date Scheduled Date Urine Culture December 22, 2024 10:42pm Future Visits Future appointment information is unavailable Future Procedures Procedure Name Ordered Date Scheduled Date Admit Status Order November 12, 2024 1:17pm S eptember 2024 1:17pm Post Anesthesia Tracer order November 12 2:20pm November 12, 2024 2:30pm Discharge Order November 12, 2024 2:44pm Sept ember 2024 2:44pm Urine Culture December 23, 2024 1:06pm Novemb er 2024 10:42pm Apply O2 via Nasal Cannula 4 L to Maintain SpO2 of >=90% October 06, 2024 8:13am October 16, 2024 11:00pm Orders Panel Function Communication Order November 04, 2024 2:15pm November 04, 2024 2:15p m Orders Panel Function Communication Order October 24, 2024 2:30pm October 24, 2024 2:30pm Future Medications Future medication information is unavailable Patient Instructions Instruction Admit Date Ondansetron PromethazineAugust 2024 10:59amKnow your MedsSeptember 2024 2:24pm Goals Acute Goals Author Authored Date Experience reduced anxiety * Identifies current stressors * Develops effective coping behaviors * Uses support services as appropriateMistomar [facility]alept[facility] 20[facility] 4:20pmRemain free of complications Maritza [facility] 20[facility] 4:20pmUnderstand preop/postop care/sensations * Verbalizes understanding of surgical procedure * Verbalizes understanding of sensations following surgery * Verbalizes understanding of post-op treatment planOhio[facility] 2024 4:20pmReport pain at tolerable level * Uses pain scale appropriately * Identify options for pain control - Analgesics - Narcotics - Non-medication measuresOhioHealth [facility] Hospital 2024 4:20pmAbsence of imbalanced fluid volume s/s [facility] 2024 4:20pmAbsence of physical injury [facility] 2024 4:20pmAbsence of surgical site infection [facility] 2024 4:20pm
--- OUTSIDE RECORDS SUMMARY | 2024-12-24 14:35 | XMS_ITS ---
Author Organization [facility] Address [address] [place] [address] Care Team Providers Care Sales Service Rep Name Role Phone Penelope Walker APRN-[facility] Unavailable Blane Beavers DO Primary Care Provider [phone] Emergency Department Transitional Care Management (TCM) Status:Identified (Enrolling) Start date:12/23/2024 Enrollment reason:Identified using hospital discharge data Overview Discharged from [facility] ER on 12/23. Please contact within 2 days of discharge for ERTOC and schedule a follow-up appointment if needed. Continued Care and Services Coordination
--- OUTSIDE RECORDS SUMMARY | 2024-12-24 14:35 | XMS_ITS | Clinical Summary ---
Author Organization [facility] Address [address] [facility] [place] [address] Care Team Providers Care Fit Model Name Role Phone Unavailable Primary Care Provider Unavailabl e Source Comments The following information is NOT included in Care Everywhere downloads:Psychiatric notes, ECG results, Cardiac Rehab notes, Pulmonary Function notes, data from SmartForms (includes but not limited toPregnancy data,audiograms, eye exams, pre-surgical evaluation notes, well-child exam data).[facility] Social History Tobacco UseTypesPacks/DayYears UsedDateSmoking Tobacco: Never Assessed CommentsUnknownSex and Gender InformationValueDate RecordedSex Assigned at Not on fileLegal TfrRhftlk15/04/2025 1:34 PM EDTGender IdentityNot on fileSexual OrientationNot on file Last Filed Vital Signs Vital SignReadingTime TakenCommentsBlood Epdbgyha329/7108 3:34 AM EDT Ptcep7293 3:34 AM JTOVruugctxtpc08.7 ??C (99.8 ??F)09/24/2024 3:34 AM EDTRespiratory Hmtf7852 3:34 AM EDTOxygen Fhepudbbkk13%09/24/2024 3:34 AM EDTRAInhaled Oxygen Concentration--Weight--Height--Body Mass Index-- Plan of Treatment Health MaintenanceDue DateLast DoneCommentsHIV Test12/18/2010Hepatitis C Syzlobbw73/30/2014Tdap Cvjxasj0812/18/2013Hepatitis A (HAV) Vaccine (optional start 19+ years)12/18/2014Hepatitis B (HBV) Vaccine (1 of 3 - 19+ 3-dose series) 12/18/2014Pap Smear10/30/2017HPV Vaccine (optional start 27-45 years)12/18/2022 COVID-19 Vaccine ( - 2024- season)2024Influenza Vaccine (#1)2024 Shingles (RZV) Vaccine (1 of 2)12/18/2045MammographyDiscontinuedPneumococcal Vaccine(s)Aged OutNo longer eligible based on patient's age to complete this topic Insurance * Guarantor: Emma MahanAccount TypeRelation to PatientDate of BirthPhone Billing AddressPersonal/EbtpkaRgkr88/30/[address] [address]
--- OUTSIDE RECORDS SUMMARY | 2024-12-24 14:35 | XMS_ITS | Clinical Summary ---
Author Organization [facility] tem Address [facility] [id number] [address] [place] [address] Care Team Providers Care Poultry Boner Name Role Phone Unavailable Primary Care Provider Unavailabl e Allergies Active AllergyReactionsCriticalityNoted DateCommentsEtonogestrel-Ethinyl Hpetdypbl75/01/2021 Medications MedicationSigDispense QuantityRefillsLast FilledStart DateEnd DateStatus sertraline [...] Problems ProblemNoted DateDiagnosed DateFlank pain10/01/2024 Encounters DateTypeDepartmentCare EibkQkouzyguqcd59/13/2025 8:54 AM EDT - 10/01/2024 2:33 PM EDTEmergency [facility] [address] [place] [address] Boaz Fraser DO Ford, Jeffrey S, MD Flank pain (Primary Dx) Discharge Disposition: Left Against Medical Advice or Discontinued Care 10/01/2024Travelfrom Last 3 Months Family History Medical HistoryRelationNameCommentsHypertensionFatherCrohn's diseaseMaternal AuntDepressionMaternal UncleSchizophreniaMaternal UncleLung cancerPaternal GrandfatherRelationNameStatusCommentsBrotherAliveDaughterAliveFatherAlive Maternal AuntMaternal UncleMotherAlivePaternal GrandfatherSonAlive Social History Tobacco UseTypesPacks/DayYears UsedDateSmoking Tobacco: NeverSmokeless Tobacco: NeverAlcohol UseStandard Drinks/WeekCommentsNot Currently0 (1 standard drink = 0.6 oz pure alcohol)ChildcareAnswerDate OhnxmwbaEgvrkqeolBbsjfvw02/09/2019 EmploymentAnswerDate PrtwnandClpdhcxcfbMygkhyz60/09/2019Hunger ScreeningAnswer Date RecordedWithin the past 12 months we worried whether our food would run out before we got money to buy more.Never True10/01/2024Within the past 12 months the food we bought just didn't last and we didn't have money to get more.Never True10/01/2024Purpose - LifeAnswerDate RecordedPurpose and direction in life Ybzlugh07/11/2021CommentsNoSex and Gender InformationValueDate Recorded Sex Assigned at BirthNot on fileLegal EfnLbizxe95/06/2015 12:11 PM EDTGender IdentityNot on fileSexual OrientationNot on file Last Filed Vital Signs Vital SignReadingTime TakenCommentsBlood Doxcnhbk624/9008 2:28 PM EDT Vsval162510/01/2024 2:28 PM XXBBoshkammbsr97.3 ??C (99.2 ??F)10/01/2024 9:15 AM EDTRespiratory Mqjj161910/01/2024 2:28 PM EDTOxygen Desrkltpwc14%10/01/2024 2:28 PM EDTInhaled Oxygen Concentration--Lfvfxf08.2 kg (143 lb 12.8 oz)05/25/2020 9:08 AM YOAWjflxd187 cm (5' 3 )05/25/2020 9:08 AM EDTBody Mass Index25.47 05/25/2020 9:08 AM EDT Plan of Treatment Health MaintenanceDue DateLast DoneCommentsDepression Zvesbeddf84/30/2008Tobacco Vwevzbips24/30/2008dult BMI Orvadafzr53/30/2014Pap Smear/12/2019 COVID-19 Vaccine ( season)511/, 12/08/2020Influenza Cqewqwx33/, 12/22/2022, 11/25/2019, Additional history exists DTaP,Tdap and Td Vaccines (9 - Td or Tdap), 10/09/2017, 10/23/2014, Additional history exists Medical Devices Not on file Procedures Procedure NamePriorityDate/TimeAssociated DiagnosisCommentsPOCT NURSING URINE MACROSCOPIC DWCgtyqds70/13/2025 11:26 AM EDT ER EXTRA URINE YHOGXFYEKI20/13/2025 11:12 AM EDT ER EXTRA URINE QNSUKCUGEBL55/13/2025 11:12 AM EDT ER EXTRA XWIQZONJB52/13/2025 11:12 AM EDT BLOOD XLLDZXDWOEP04/13/2025 10:34 AM EDT BLOOD TNSFROVVQMR16/13/2025 10:[address] ABDOMEN AND PELVIS W EYDWBFQR97/13/2025 9:55 AM EDT MUNOZ TOP ON VULUZRP1910/01/2024 9:27 AM EDT LAVENDER QONXVJA1010/01/2024 9:27 AM EDT PST GMHNFQU0210/01/2024 9:27 AM EDT BLUE XEIFDVQ6710/01/2024 9:27 AM EDT LACTATE W/ REFLEXAdd-On08/ 9:27 AM EDT MAGNESIUMSTAT Add-on10/01/2024 9:27 AM EDT COMPREHENSIVE METABOLIC PANELSTAT Add-on10/01/2024 9:27 AM EDT CBC WITH AUTO DIFFERENTIALSTAT Add-on10/01/2024 9:27 AM EDT RAINBOW OFLOADIJ49/13/2025 9:27 AM EDT HIGH RISK HPV W/CBKOCwwyzbm11/11/2020 from Last 3 Months or Most Recently Relevant to Health Maintenance Results * (ABNORMAL) POCT Nursing Urine Macroscopic UA (10/01/2024 11:26 AM EDT) ComponentValueRef RangeTest MethodAnalysis TimePerformed AtPathologist [facility] Urine Specific Gravity1.0101.010, 1.015, 1.020, 1.3161110/01/2024 11:18 AM [facility] Urine Leukocyte EsteraseSmall(A) Cflqhkos47/13/2025 11:18 AM [facility] Urine Nitrite XvrshgzwCfmduzny63/13/2025 11:18 AM [facility] Urine pH 6.55.0, 6.0, 6.5, 7.0, 7.5, 8.0, 8.5, 5.5010/01/2024 11:18 AM [facility] Urine ProteinTrace(A)Cxbhmaar36/13/2025 11:18 AM EDT [facility] Urine QpuptjwVkpagrjqEawvdapp86/13/2025 11:18 AM [facility] Urine UhlhxcsLszpfdtgXyqpvmyo26/13/2025 11:18 AM [facility] Urine Urobilinogen0.2 E.U./dL10/01/2024 11:18 AM [facility] Urine BilirubinNegativeNegative 10/01/2024 11:18 AM [facility] Urine Blood/HGBSmall(A) Raaajbda51/13/2025 11:18 AM [facility]YS[facility] (Source) Anatomical Location / LateralityCollection Method / VolumeCollection Time Received PjrcAvstv89/13/2025 11:26 AM EDT10/01/2024 11:18 AM EDT Narrative Authorizing ProviderResult TypeResult StatusRobert W Fraser DOPOINT OF CARE TEST ORDERABLESFinal ResultPerforming OrganizationAddressCity/State/ZIP Code Phone Number [facility] [address] [place] [address], [place] * Extra Urine Norphlet (10/01/2024 11:12 AM EDT)ComponentValueRef RangeTest Method Analysis TimePerformed AtPathologist SignatureExtra TubeAuto Resulted 10/01/2024 1:01 PM [facility] LABORATORYSpecimen (Source) Anatomical Location / LateralityCollection Method / VolumeCollection Time Received TimeUrineUrine specimen collection, clean catch / Pppgfcq0910/01/2024 11:12 AM EDT10/01/2024 11:59 AM EDT Narrative Authorizing ProviderResult TypeResult StatusRobert W Fraser DOURINE ORDERABLES Final ResultPerforming OrganizationAddressCity/State/ZIP CodePhone Number [facility] [address] [place] [address], * Extra Urine Culture (10/01/2024 11:12 AM EDT)ComponentValueRef RangeTest MethodAnalysis TimePerformed AtPathologist SignatureExtra TubeAuto Resulted 10/01/2024 1:01 PM [facility] LABORATORYSpecimen (Source) Anatomical Location / LateralityCollection Method / VolumeCollection Time Received TimeUrineUrine specimen collection, clean catch / Muysscw1910/01/2024 11:12 AM EDT10/01/2024 11:59 AM EDT Narrative Authorizing ProviderResult TypeResult StatusRobert W Fraser DOURINE ORDERABLES Final ResultPerforming OrganizationAddressCity/State/ZIP CodePhone Number [facility] [address] [place] [address], * Extra Urine (10/01/2024 11:12 AM EDT)ComponentValueRef RangeTest Method Analysis TimePerformed AtPathologist SignatureExtra TubeAuto Resulted 10/01/2024 1:01 PM [facility] LABORATORYSpecimen (Source) Anatomical Location / LateralityCollection Method / VolumeCollection Time Received TimeUrineUrine specimen collection, clean catch / Fpzguma8310/01/2024 11:12 AM EDT10/01/2024 11:59 AM EDT Narrative Authorizing ProviderResult TypeResult StatusRobert W Fraser DOURINE ORDERABLES Final ResultPerforming OrganizationAddressCity/State/ZIP CodePhone Number [facility] [address] [place] [address], * Blood culture #2 (10/01/2024 10:34 AM EDT) Only the most recent of2 resultswithin the time period is included. ComponentValueRef RangeTest MethodAnalysis TimePerformed AtPathologist Signature CULTURE RESULTSNO GROWTH 5 DAYS10/06/2024 12:02 PM [facility] LABORATORYSpecimen (Source)Anatomical Location / LateralityCollection Method / VolumeCollection TimeReceived TimeBloodVenous blood / UnknownVenipuncture / Oqebarf4810/01/2024 10:34 AM EDT10/01/2024 11:21 AM EDT Narrative Authorizing ProviderResult TypeResult StatusAndrew D Hancock MDMICROBIOLOGY - GENERAL ORDERABLESFinal ResultPerforming OrganizationAddressCity/State/ZIP CodePhone Number [facility] [address] [place] [address], * CT abdomen and pelvis with contrast [...] AtPathologist SignatureExtra TubeAuto Resulted 10/01/2024 11:01 AM [facility] LABORATORYSpecimen (Source) Anatomical Location / LateralityCollection Method / VolumeCollection Time Received TimeBloodVenous blood / Ircunsj5710/01/2024 9:27 AM EDT10/01/2024 10:14 AM EDT Narrative Authorizing ProviderResult TypeResult StatusRobert W [facility] BLOOD ORDERABLESFinal ResultPerforming OrganizationAddressCity/State/ZIP CodePhone Number [facility] [address] [place] [address], [place] [phone] * Lactate w/ Reflex (10/01/2024 9:27 AM EDT)ComponentValueRef RangeTest Method Analysis TimePerformed AtPathologist SignatureLACTATE W/REFLEX1.40.4 - 2.0 mmol/L10/01/2024 10:33 AM [facility] LABORATORYSpecimen (Source)Anatomical Location / LateralityCollection Method / VolumeCollection TimeReceived TimeBloodVenous blood / Xzwntfw5810/01/2024 9:27 AM EDT10/01/2024 10:14 AM EDT Narrative [facility] - 10/01/2024 10:33 AM EDT Result did not trigger repeat Lactate, re-order if needed. Authorizing ProviderResult TypeResult StatusKam DELGADILLO BLOOD ORDERABLESFinal ResultPerforming OrganizationAddressCity/State/ZIP CodePhone Number [facility] [address] [place] [address], * (ABNORMAL) CBC auto differential (10/01/2024 9:27 AM EDT)ComponentValueRef RangeTest MethodAnalysis TimePerformed AtPathologist TdqrarfmuKYW40.3(H)4 - 11 x10E9/L10/01/2024 10:36 AM [facility] LABORATORYRBC Count3.94 3.8 - 5.2 X10E12/L10/01/2024 10:36 AM [facility] Clpfyjqsad33.2(L)11.7 - 15.5 g/dL10/01/2024 10:36 AM [facility] BQCGOWXSGHOvakkmpwqs47.0(L)35 - 47 %10/01/2024 10:36 AM [facility] HEFKEJWOWZNWK05(L)80 - 100 fL10/01/2024 10:36 AM [facility] FCHGCWUXLIDUL33.9(L)27 - 34 pg10/01/2024 10:36 AM [facility] JGWTRIUIZJWVGL65.032 - 36 g/dL10/01/2024 10:36 AM [facility] DGCQKQHARYSXH59.6(H)11.5 - 15 %10/01/2024 10:36 AM [facility] LABORATORYPlatelet Count1,005(HH)150 - 450 X10E9/L10/01/2024 10:36 AM [facility] LABORATORYMPV7.17 - 12 fL10/01/2024 10:36 AM [facility] LABORATORYNeutrophils %83%10/01/2024 10:36 AM [facility] LABORATORYComment:This is an appended report. These results have been appended to a previously preliminary verified report. Lymphocytes %14%10/01/2024 10:36 AM [facility] Comment:This is an appended report. These results have been appended to a previously preliminary verified report.Monocytes %3%10/01/2024 10:36 AM EDT [facility] LABORATORYComment:This is an appended report. These results have been appended to a previously preliminary verified report. Neutrophils Absolute (M)16.0(H)1.5 - 6.6 10*3/uL10/01/2024 10:36 AM [facility] LABORATORYComment:This is an appended report. These results have been appended to a previously preliminary verified report.Lymphocytes Absolute2.71.0 - 3.5 10*3/uL10/01/2024 10:36 AM [facility] LABORATORYComment:This is an appended report. These results have been appended to a previously preliminary verified report.Monocytes Absolute0.60.0 - 0.9 10*3/uL10/01/2024 10:36 AM [facility] LABORATORYComment:This is an appended report. These results have been appended to a previously preliminary verified report.Rouleaux1+10/01/2024 10:36 AM [facility] LABORATORYComment:This is an appended report. These results have been appended to a previously preliminary verified report.Differential TypeMANUAL IVJAJKZCCLXT64/13/2025 10:36 AM [facility] LABORATORYComment: This is an appended report. These results have been appended to a previously preliminary verified report.Specimen (Source)Anatomical Location / Laterality Collection Method / VolumeCollection TimeReceived TimeBloodVenous blood / Tagckwt4110/01/2024 9:27 AM EDT10/01/2024 9:38 AM EDT Narrative Authorizing ProviderResult TypeResult StatusRobert W [facility] BLOOD ORDERABLESFinal ResultPerforming OrganizationAddressCity/State/ZIP CodePhone Number [facility] [address] [place] [address], * Lavender Top (10/01/2024 9:27 AM EDT)ComponentValueRef RangeTest Method Analysis TimePerformed AtPathologist SignatureExtra TubeAuto Resulted 10/01/2024 11:01 AM [facility] LABORATORYSpecimen (Source) Anatomical Location / LateralityCollection Method / VolumeCollection Time Received TimeBloodVenous blood / Preyiay4210/01/2024 9:27 AM EDT10/01/2024 9:38 AM EDT Narrative Authorizing ProviderResult TypeResult StatusRobert W Fraser DOLAB BLOOD ORDERABLESFinal ResultPerforming OrganizationAddressCity/State/ZIP CodePhone Number [facility] [address] [place] [address], * PST TOP (10/01/2024 9:27 AM EDT)ComponentValueRef RangeTest MethodAnalysis TimePerformed AtPathologist SignatureExtra TubeAuto Mzpylaqe09/13/2025 11:01 AM [facility] LABORATORYSpecimen (Source)Anatomical Location / LateralityCollection Method / VolumeCollection TimeReceived TimeBloodVenous blood / Qmigvcl0210/01/2024 9:27 AM EDT10/01/2024 9:38 AM EDT Narrative Authorizing ProviderResult TypeResult StatusRobert W Fraser DOLAB BLOOD ORDERABLESFinal ResultPerforming OrganizationAddressCity/State/ZIP CodePhone Number [facility] [address] [place] [address], * Light Blue Top (10/01/2024 9:27 AM EDT)ComponentValueRef RangeTest Method Analysis TimePerformed AtPathologist SignatureExtra TubeAuto Resulted 10/01/2024 11:01 AM [facility] LABORATORYSpecimen (Source) Anatomical Location / LateralityCollection Method / VolumeCollection Time Received TimeBloodVenous blood / Sadpqbh3710/01/2024 9:27 AM EDT10/01/2024 9:38 AM EDT Narrative Authorizing ProviderResult TypeResult StatusRobert W Fraser DOLAB BLOOD ORDERABLESFinal ResultPerforming OrganizationAddressCity/State/ZIP CodePhone Number [facility] [address] [place] [address], * Magnesium (10/01/2024 9:27 AM EDT)ComponentValueRef RangeTest MethodAnalysis TimePerformed AtPathologist SignatureMAGNESIUM2.31.8 - 2.6 mg/dL10/01/2024 10:15 AM [facility] LABORATORYSpecimen (Source)Anatomical Location / LateralityCollection Method / VolumeCollection TimeReceived Time BloodVenous blood / Gtdeprr4710/01/2024 9:27 AM EDT10/01/2024 9:38 AM EDT Narrative Authorizing ProviderResult TypeResult StatusRobert W [facility] BLOOD ORDERABLESFinal ResultPerforming OrganizationAddressCity/State/ZIP CodePhone Number [facility] [address] [place] [address], * (ABNORMAL) Comprehensive metabolic panel (10/01/2024 9:27 AM EDT)Component ValueRef RangeTest MethodAnalysis TimePerformed AtPathologist SignatureSODIUM 958718 - 146 mmol/L10/01/2024 10:15 AM [facility] POTASSIUM4.33.5 - 5.0 mmol/L10/01/2024 10:15 AM [facility] WSWIRWNPGHWPLMVMXV49(L)98 - 109 mmol/L10/01/2024 10:15 AM [facility] LABORATORYCARBON RIARKPQ4779 - 32 mmol/L10/01/2024 10:15 AM [facility] LABORATORYANION PEL122 - 15 mmol/L10/01/2024 10:15 AM EDT [facility] LABORATORYBLOOD UREA TBFGLRLH832 - 23 mg/dL10/01/2024 10:15 AM [facility] LABORATORYCREATININE1.06(H)0.40 - 1.00 mg/dL10/01/2024 10:15 AM [facility] LABORATORYComment:METHOD TRACEABLE TO IDMS JNSSIDJDQJWMCZR095(H)65 - 99 mg/dL10/01/2024 10:15 AM EDT [facility] LABORATORYCALCIUM9.38.5 - 10.5 mg/dL10/01/2024 10:15 AM [facility] LABORATORYTOTAL PROTEIN8.2(H)6.0 - 8.0 g/dL 10/01/2024 10:15 AM [facility] LABORATORYALBUMIN3.43.2 - 5.3 g/dL10/01/2024 10:15 AM [facility] LABORATORYALKALINE LKNYTLQNQDC005(H)39 - 130 U/L10/01/2024 10:15 AM [facility] JUVJJQCGIBOJI46<=41 U/L10/01/2024 10:15 AM [facility] GAGQIDRRGONZW91(H)<=31 U/L10/01/2024 10:15 AM [facility] LABORATORYBILIRUBIN,TOTAL0.60.3 - 1.2 mg/dL10/01/2024 10:15 AM [facility] LABORATORYEGFR Non-Race Iizlebbln93>=60 ml/min/1.73sq.m 10/01/2024 10:15 AM [facility] LABORATORYComment: Reported eGFR is based on the CKD-EPI 2020 equation that does not use a race coefficient. Specimen (Source)Anatomical Location / LateralityCollection Method / Volume Collection TimeReceived TimeBloodVenous blood / Ewxiaci3410/01/2024 9:27 AM EDT 10/01/2024 9:38 AM EDT Narrative Authorizing ProviderResult TypeResult StatusRobert W [facility] BLOOD ORDERABLESFinal ResultPerforming OrganizationAddressCity/State/ZIP CodePhone Number [facility] [address] [place] [address], [place] [phone] * High risk HPV w/nancy (01/30/2020)ComponentValueRef RangeTest MethodAnalysis TimePerformed AtPathologist SignatureOther High Risk HpvSee attached report MANUALLY TRANSCRIBED RESULTSComment:See attached report Narrative Authorizing ProviderResult TypeResult StatusNot In System Ref [facility] BLOOD ORDERABLESEdited Result - FinalPerforming OrganizationAddressCity/State/ZIP Code Phone Number MANUALLY TRANSCRIBED RESULTS from Last 3 Months or Most Recently Relevant to Health Maintenance Insurance * Guarantor: Emma MahanAccount TypeRelation to PatientDate of BirthPhone Billing AddressPersonal/KreuegOjzl32/[birth year]/[address] [address] Advance Directives * Full Code (Latest Code Status on File) Date ActivatedDate InactivatedComments09/07/2017 8:59 PM09/07/2017 11:24 PM
--- OUTSIDE RECORDS SUMMARY | 2024-12-24 14:35 | XMS_ITS | Clinical Summary ---
Author Organization [facility] Address [address] [place] [address] Care Team Providers Care Supervisory Training Specialist Name Role Phone Unavailable Primary Care Provider Unavailabl e Allergies Active AllergyReactionsCriticalityNoted DateCommentsEtonogestrel-Ethinyl EstradiolOther: See Xaswakeb02/15/2025 Medications MedicationSigDispense QuantityRefillsLast FilledStart DateEnd DateStatus sertraline [...] Apply 1 patch as directed.5Active Encounters DateTypeDepartmentCare ZrlwEgzmhqwkhdm88/18/2025Telephone Hematology/Medical Oncology [facility] [place] [address] Marquiat Rosario MD Patient Llndcd2710/03/2024 3:20 PM EDTOffice Visit Urology [address] [facility] [place] [address] Jose Townsend MD Calculus of kidney with calculus of ureter (Primary Dx); Postprocedural hematoma of a genitourinary system organ or structure following a genitourinary system procedure; Aspiration pneumonia, unspecified aspiration pneumonia type, unspecified laterality, unspecified part of lung (HCC); Thrombocytosis; Leukocytosis, unspecified type10/03/20241683Kapgdq97/14/2025Telephone Urology [address] [place] [address] Jose Townsend MD 09/30/2024Nurse Triage NURSE [facility] [address] [place] [address] Marianne Sears, GEOFF Blurred Visionfrom Last 3 Months Immunizations ImmunizationAdministration DatesNext Dueinfluenza vaccine, unspecified gyskbogakfk12/16/2024 Social History Tobacco UseTypesPacks/DayYears UsedDateSmoking Tobacco: Never AssessedArea Deprivation IndexAnswerDate RecordedNational Score (1-100), lower number is lower xuys462210/03/2024State Score (1-10), lower number is lower uwuo49610/03/2024 Data from: https://www.neighborhoodatlas.[facility]/. Last address used for cmvbcqfjcix[address] [facility] 6010/03/2024CommentsUnknownSex and Gender InformationValueDate RecordedSex Assigned at BirthNot on fileLegal SexFemale 03/16/2023 11:25 AM ESTGender IdentityNot on fileSexual OrientationNot on file Last Filed Vital Signs Vital SignReadingTime TakenCommentsBlood Mmuyauup217/78010/03/2024 3:51 PM EDT Bwhri940710/03/2024 3:51 PM EDTTemperature--Respiratory Rate--Oxygen Saturation-- Inhaled Oxygen Concentration--Okzccx63.6 kg (180 lb)10/03/2024 3:51 PM EDTHeight --Body Mass Index-- Plan of Treatment Health MaintenanceDue DateLast DoneCommentsAnxiety Peutlplub23/30/2014Depression Uyvwmqcoz17/30/2014HIV Zaigtwptu31/30/2014Hepatitis C Cldilrgws68/30/2014 Cervical Cancer Ojewjlkyb41/30/2017HPV Vaccine (1 - 3-dose SCDM series) 3Covid-19 Vaccine ( - season)511/, 12/08/2020 Influenza Vaccine (#1)501/, 12/22/2022, 11/25/2019, Additional history existsDTaP,Tdap,Td Vaccine (9 - Td or Tdap)9103/27/2018, 10/09/2017, 10/23/2014, Additional history existsHepatitis B VaccineCompleted 07/01/1996, 02/29/1996, 1995 Insurance * Guarantor: Emma Mahan TypeRelation to PatientDate of BirthPhone Billing AddressPersonal/EnvnavGtsy31/[birth year][address] [address]
--- OUTSIDE RECORDS SUMMARY | 2024-12-24 14:35 | XMS_ITS | Clinical Summary ---
Author Organization [facility] Address [address] [place] [address] Care Team Providers Care Machine Tool Technician Instructor Name Role Phone Penelope Walker APRN-METAL FABRICATION SUPERVISOR Unavailable Blane Beavers DO Primary Care Provider Allergies Active AllergyReactionsCriticalityNoted DateCommentsEtonogestrel-Ethinyl DclitynwwUbvla25/13/2023 Severe depression Medications MedicationSigDispense QuantityRefillsLast FilledStart DateEnd [...] (two) times a day as needed for vrinrzqulqbn63/06/2025 11/27/2024Discontinued(Therapy completed) ketorolac (Toradol) 10 MG tablet [...] every 6 (six) hours if needed for usitvywy37/06/2025 11/27/2024Discontinued(Therapy completed) Cariprazine HCl (Vraylar) 3 MG capsule Indications:Bipolar 2 disorder (HCC)Take 1 capsule by mouth Daily 30 capsule Discontinued(Reorder) Active Problems ProblemNoted DateDiagnosed DateChronic skwduanh59/08/3754Swbacnb19/08/2025Kidney qywjit8209/26/2024Nausea and /08/2025 Overview (09/26/2024): Outside Source Comment: Problem List clean-up per request of Phys. EHR Cmte Abnormal cytological findings in specimens from other organs, systems and /21/2023Cannabis abuse02/08/2023ervical high risk HPV (human papillomavirus) test fewairun08/21/0824Xizbvbnqvl07/21/2023isorder of female genital organ02/08/2023Menstrual enhyphds92/21/2023ipolar 2 vrivsweu36/13/2023 Vjwkorh4107/01/2022 Encounters DateTypeDepartmentCare WsfzXgeyvpblkva66/09/2025 3:00 PM EDTOffice Visit [facility] [address] [facility] [address] [place] [address] Penelope Walker, TWIST TESTER-METAL FABRICATION SUPERVISOR Bipolar 2 disorder (HCC); Pezdmsx0211/27/2024amboo flowsheet [facility] [address] [facility] [address] [place] [address] Penelope Walker, TWIST TESTER-METAL FABRICATION SUPERVISOR 11/27/20243085Alhmrt62/26/2025Patient Outreach [facility] [address] [facility] [place] [address] Sunday, Dayana, COMBINER OPERATOR 11/12/2024bstract [facility] [address] [facility] [address] [place] [address] Blane Beavers, DO 11/06/2024Refill [facility] [address] [facility] [address] [place] [address] Penelope Walker, TWIST TESTER-METAL FABRICATION SUPERVISOR Bipolar 2 disorder (HCC)10/17/2024External Result Encounter [facility] External Department Unsolicited Blane Severino, DO 10/10/2024bstract [facility] [address] [facility] [address] [place] [address] Blane Beavers, DO 09/30/2024External Result Encounter [facility] [...] [facility] External Department Unsolicited Blane Severino, DO 09/26/2024bstract [facility] [address] [place] [address] [place] [address] Blane Beavers, DO 09/26/2024bstract [facility] [address] [place] [address] [place] [address] Blane Beavers, DO 09/26/2024Patient Outreach [facility] [address] [place] [address] Beth Jha, GEOFF 09/25/20245223Vzgbfw88/05/2025bstract [facility] [address] [place] [address] [place] [address] Blane Beavers, DO 09/23/2024bstract [facility] [address] [place] [address] [place] [address] Blane Beavers, DO from Last 3 Months Immunizations ImmunizationAdministration DatesNext DueDTaP, Kzudwdjccyr57/07/2002,01/15/1998, 07/01/1996,05/01/1996,02/29/1996Hep B, Adolescent or Ieiclhhqh06/13/1997, 02/29/1996,1995IPV04/25/2001,01/15/1998,05/01/1996,02/29/1996Influenza, Tcxuexkefen12/03/2023,11/25/2019,01/24/2019Influenza, injectable, MDCK, preservative free, vopoynocbdja64/06/2019Influenza, injectable, quadrivalent 03/06/2023Influenza, injectable, quadrivalent, preservative free12/22/2022, 11/25/2019MMR03/06/2019,08/16/2001,04/06/1997PPD Test10/24/2022,05/09/2019, 05/02/2019,02/28/2019Polio, Wztddzvpkib65/07/2002,01/15/1998,05/01/1996, 02/29/1996Tdap103/27/2018,10/09/2017,10/23/20143252Yetmdxtfk82/08/2001 Family History Medical HistoryRelationNameCommentsHypertensionFatherBrianTesticular cancer FatherBrianDiabetesMotherRebeccaDepressionMother's BrotherDJSchizophrenia Mother's BrotherDJCrohn's diseaseMother's SisterLung cancerPaternal Grandfather PdiyjzplHrbeTklonnAznhgkyhRrgywdk6Aozpywsr6OjjzblSrehdLvuntPfbexjAujmwlpKtwbs Mother's BrotherDJMother's SisterPaternal GrandfatherSon2 Social History Tobacco UseTypesPacks/DayYears UsedDateSmoking Tobacco: NeverSmokeless Tobacco: Never Tobacco Cessation:Counseling Given: Not Answered Alcohol UseStandard Drinks/WeekCommentsNot Currently0 (1 standard drink = 0.6 oz pure alcohol)80-200 mg of caffiene, energy rydztrA9749 Health LiteracyAnswerDate RecordedHow often do you need [...] times a week09/25/2024How often do you attend sabianism or jewish services?Never09/25/2024Do you belong to any clubs or organizations such as sabianism groups, unions, fraternal or athletic groups, or school groups?No09/25/2024How often do you attend meetings of the clubs or organizations you belong to?Never09/25/2024re you , , , , never , or living with a partner?Wmehulx4509/25/2024UDIT-C AnswerDate RecordedQ1: How often do you have [...] heating?Not very hard09/25/2024 PHQ-2AnswerDate RecordedPatient Health Questionnaire-2 Edjai464Finintermountain medical center [place] of Occupational Health - Occupational Stress QuestionnaireAnswerDate [...] steady place to sleep or slept in [place] (including now)?No02/09/2023Housing Stability Vital SignAnswerDate RecordedIn the last 12 months, was there a time when you were not able to pay the mortgage or rent on time?No09/25/2024In the past 12 months, how many times have you moved where you were living?t any time in the past 12 months, were you homeless or living in a correction (including now)?No09/25/2024 EducationAnswerDate RecordedWhat is the highest level of school you have completed or the highest degree you have received?Master's degree (e.g., MA, MS, Jennifer, MEd, GEOMAGNETIST, NILAM)4CommentsUnknownSex and Gender Information ValueDate RecordedSex Assigned at BirthNot on fileLegal EabTcpyxu45/15/2023 6:35 PM EDTGender IdentityNot on fileSexual OrientationNot on fileOccupationIndustry Job Start DateJob End DateNot on fileNot on fileNot on fileNot on file Last Filed Vital Signs Vital SignReadingTime TakenCommentsBlood Wrtnzxww290/8610 3:00 PM EDT Wyskz6246 3:00 PM QBQOtdczabojkf39.3 ??C (97.4 ??F)04/08/2024 9:02 AM ESTRespiratory Rate--Oxygen Hdujroqzfw64%04/08/2024 9:02 AM ESTInhaled Oxygen Concentration--Ueuoji87.6 kg (180 lb)11/27/2024 3:00 PM PXUZdswjf514.5 cm (5' 2 )04/08/2024 9:02 AM ESTBody Mass Index32.9204/08/2024 9:02 AM EST Plan of Treatment DateTypeDepartmentCare Team (Latest Contact Info)Bfqycatovhv33/20/2025 1:00 PM ESTOffice Visit [facility] [address] [facility] [address] [place] [phone] Penelope Walker APRN-METAL FABRICATION SUPERVISOR [address] [facility] [address] [place] [address] Health MaintenanceDue DateLast DoneCommentsCOVID-19 Vaccine ( season) 511/, 12/08/2020Influenza Vaccine (#1)501/, 12/22/2022, 12/22/2022, Additional history existsPneumococcal Vaccine: Pediatrics (0 to 5 Years) and At-Risk Patients (6 to 64 Years)Aged OutNo longer eligible based on patient's age to complete this topic Procedures Procedure NamePriorityDate/TimeAssociated DiagnosisCommentsCBC WITH AUTO BVSDAOFSAWLRBxrdqnk51/29/2025 2:10 PM EDT FR KAPPA/LAMBDA LTC YKDJNMdbsxrz50/12/2025 10:30 AM EDT PATHOLOGIST SLIDE REVIEW ([facility])Ansgisg4609/30/2024 10:30 AM EDT COMPREHENSIVE METABOLIC HPBUJNthgncm21/12/2025 10:30 AM EDT SCAN AND ZRHGjhdxnx32/12/2025 10:30 AM EDT JOSHUA 2 UOPPGTSTBZKdhnmkb99/12/2025 10:29 AM EDT IMMUNOFIXATION,SERUM ([facility])Ngtjdwx9009/30/2024 10:29 AM EDT PROTEIN ELECTROPHORESIS, WAIXQPzznotd43/12/2025 10:29 AM EDT RWZOMPWVSsdglzn20/12/2025 10:29 AM EDT IRON AND TOTAL IRON BINDING CFTURCOOBpkdpkr85/12/2025 10:29 AM EDT LACTATE QOCTYGXJMKNPELmnspwg03/12/2025 10:29 AM EDT from Last 3 Months Results * (ABNORMAL) CBC auto differential (10/17/2024 2:10 PM EDT)ComponentValueRef RangeTest MethodAnalysis TimePerformed AtPathologist SignatureWBC9.43.8 - 11.6 [CFU]/mL10/17/2024 2:31 PM [facility] CtrUNCORRECTED WHITE BLOOD COUNT9.43.8 - 11.6 10*3/uL10/17/2024 2:31 PM [facility] CtrRBC4.323.60 - 5.00 10*6/uL10/17/2024 2:31 PM [facility] OhwXQZAAZRVZC93.6(L)11.8 - 15.4 g/dL10/17/2024 2:31 PM [facility] KhnMSGQZUFLOV94.534.0 - 46.4 %10/17/2024 2:31 PM [facility] AjpEQE21.8(L)80 - 100 fL10/17/2024 2:31 PM [facility] KsdVCW58.924.7 - 34.3 pg10/17/2024 2:31 PM [facility] QneJFKV28.732.0 - 35.0 g/dL10/17/2024 2:31 PM [facility] CtrRED CELL DISTRIBUTION WIDTH, RDW18.9(H)11.9 - 15.3 % 10/17/2024 2:31 PM [facility] CtrPLATELET CFXZI827(H)150 - 450 10*3/uL10/17/2024 2:31 PM [facility] CtrMEAN PLATELET VOLUME, MPV7.36.3 - 10.7 fL10/17/2024 2:31 PM [facility] CtrNEUTROPHILS, %54.0. %10/17/2024 2:31 PM [facility] LYMPHOCYTES, %34.2. %10/17/2024 2:31 PM [facility] MONOCYTE/MACROPHAGE, %6.4. %10/17/2024 2:31 PM [facility] CtrEOSINOPHILS, %4.4. %10/17/2024 2:31 PM [facility] BASOPHILS, %1.0. %10/17/2024 2:31 PM [facility] CtrNRBC0.00 - 0.5 /100{WBC}10/17/2024 2:31 PM [facility] NEUTROPHILS5.11.8 - 7.7 10*3/10/17/2024 2:31 PM [facility] CtrLYMPHOCYTES3.21.00 - 4.8 10*3/10/17/2024 2:31 PM [facility] CtrMONOCYTES0.60.0 - 0.8 10*3/10/17/2024 2:31 PM [facility] CtrEOSINOPHILS0.40.0 - 0.45 10*3/10/17/2024 2:31 PM [facility] CtrBASOPHILS0.10.0 - 0.2 10*3/10/17/2024 2:31 PM [facility] CtrSpecimen (Source)Anatomical Location / LateralityCollection Method / VolumeCollection TimeReceived TimeBlood (Blood)10/17/2024 2:10 PM EDT10/17/2024 2:18 PM EDT Narrative Authorizing ProviderResult TypeResult StatusTimuzair Lamarmarilyn [facility] BLOOD ORDERABLESFinal ResultPerforming OrganizationAddressCity/State/ZIP CodePhone Number [facility] [address] [place] [address], [facility] [address] [place] [address] * FR KAPPA/LAMBDA LTC URINE (09/30/2024 10:30 AM EDT)ComponentValueRef RangeTest MethodAnalysis TimePerformed AtPathologist SignatureFREE KAPPA LIGHT CHAINS, NTANT934.801.17 - 86.46 mg/L10/02/2024 6:36 AM EDTFIRELANDSFREE LAMBDA LT CHAINS, YDDND272.240.27 - 15.21 mg/L10/02/2024 6:36 AM EDTFIREMASON GENERAL [facility]PITAL KAPPA/LAMBDA RATIO 24 HR UR3.981.83 - 14.2608 6:36 AM [facility] Comment: Performed at: ??BN - [facility] [address] ??[id number] Abseiling Instructor: Dov López MD, Phone: ??[phone] Specimen (Source)Anatomical Location / LateralityCollection Method / Volume Collection TimeReceived TimeUrineTopography unknown / Irqaklg1209/30/2024 10:30 AM EDT09/30/2024 10:30 AM EDT Narrative Authorizing ProviderResult TypeResult StatusTimuzair Severino [facility] BLOOD ORDERABLESFinal ResultPerforming OrganizationAddressCity/State/ZIP CodePhone Number [facility] [address] [place] [address], * (ABNORMAL) SCAN AND CBC (09/30/2024 10:30 AM EDT)ComponentValueRef RangeTest MethodAnalysis TimePerformed AtPathologist BvotqdzvzEWJ87.3(H)3.8 - 11.6 [CFU]/mL09/30/2024 11:34 AM [facility] CtrUNCORRECTED WHITE BLOOD COUNT18.3(H)3.8 - 11.6 10*3/uL09/30/2024 11:34 AM [facility] CtrRBC4.133.60 - 5.00 10*6/uL09/30/2024 11:34 AM [facility] JhpQRCYZNUKJM14.9(L)11.8 - 15.4 g/dL09/30/2024 11:34 AM [facility] OebGNTYONRCTD15.6(L)34.0 - 46.4 %09/30/2024 11:34 AM [facility] YihVLQ97.1(L)80 - 100 fL09/30/2024 11:34 AM [facility] VowGCN16.424.7 - 34.3 pg09/30/2024 11:34 AM [facility] PazZWZF47.432.0 - 35.0 g/dL09/30/2024 11:34 AM [facility] CtrRED CELL DISTRIBUTION WIDTH, RDW17.2(H)11.9 - 15.3 %09/30/2024 11:34 AM [facility] CtrPLATELET COUNT1,095 (HH)150 - 450 10*3/uL09/30/2024 11:36 AM [facility] Ctr Comment: Critical value result called at 1136 on 09/30/24 MEAN PLATELET VOLUME, MPV7.06.3 - 10.7 fL09/30/2024 11:34 AM [facility] CtrNEUTROPHILS, %75.2. %09/30/2024 12:13 PM [facility] CtrLYMPHOCYTES, %17.1. %09/30/2024 12:13 PM [facility] CtrMONOCYTE/MACROPHAGE, %5.8. %09/30/2024 12:13 PM [facility] CtrEOSINOPHILS, %1.1. %09/30/2024 12:13 PM [facility] CtrBASOPHILS, %0.8. %09/30/2024 12:13 PM [facility] CtrNRBC0.10 - 0.5 /100{WBC}09/30/2024 12:13 PM [facility] LsaKSGCITGFYNK95.8(H)1.8 - 7.7 10*3/uL09/30/2024 12:13 PM [facility] CtrLYMPHOCYTES3.11.00 - 4.8 10*3/uL09/30/2024 12:13 PM EDT [facility] CtrMONOCYTES1.1(H)0.0 - 0.8 10*3/uL09/30/2024 12:13 PM [facility] CtrEOSINOPHILS0.20.0 - 0.45 10*3/uL09/30/2024 12:13 PM [facility] CtrBASOPHILS0.10.0 - 0.2 10*3/uL 09/30/2024 12:13 PM [facility] CtrANISOCYTOSISModerate 09/30/2024 12:13 PM [facility] CtrPLATELET ESTIMATEIncreased Chztpy5309/30/2024 12:13 PM [facility] CtrPLATELET MORPHOLOGY FtugrkTvumdt26/12/2025 12:13 PM [facility] CtrADDITIONAL XFRXZOGI08/12/2025 12:14 PM [facility] CtrComment: Thrombocytosis is often reactive in nature. ??If the thrombocytosis remains persistent and unexplained for greater than 3 months, recommend additional hematologic work-up or hematology consultation as clinically indicated. Slide referred to pathologist for review Specimen (Source)Anatomical Location / LateralityCollection Method / Volume Collection TimeReceived TimeBlood (Blood)09/30/2024 10:30 AM EDT09/30/2024 10:30 AM EDT Narrative Authorizing ProviderResult TypeResult StatusBlane Severino DOLAB BLOOD ORDERABLESFinal ResultPerforming OrganizationAddressCity/State/ZIP CodePhone Number [facility] [address] [place] [address], [facility] [address] [place] [address] * PATHOLOGIST SLIDE REVIEW ([facility]) (09/30/2024 10:30 AM EDT)ComponentValueRef RangeTest MethodAnalysis TimePerformed AtPathologist SignaturePATHOLOGIST SLIDE REVIEWOrdered Path Avaqpn1209/30/2024 12:16 PM [facility] CtrSpecimen (Source)Anatomical Location / LateralityCollection Method / VolumeCollection TimeReceived TimeOtherTopography unknown / Unknown 09/30/2024 10:30 AM EDT09/30/2024 10:30 AM EDT Narrative Authorizing ProviderResult TypeResult StatusAdanuzair Tre Severino DOLAB BLOOD ORDERABLESFinal ResultPerforming OrganizationAddressCity/State/ZIP CodePhone Number [facility] [address] [place] [address], [facility] [address] [place] [address] * (ABNORMAL) Comprehensive metabolic panel (09/30/2024 10:30 AM EDT)Component ValueRef RangeTest MethodAnalysis TimePerformed AtPathologist SignatureGlucose 9770 - 100 mg/dL09/30/2024 12:15 PM [facility] CtrComment: Random Glucose Reference Range is dependent on time and content of last meal. Glucose of more than 200 mg/dL in a nonstressed, ambulatory subject supports the diagnosis of Diabetes Mellitus. ADA recommended reference range EJQ340 - 25 mg/dL09/30/2024 12:15 PM [facility] CtrCREATININE 0.980.60 - 1.20 mg/dL09/30/2024 12:15 PM [facility] C[facility] ESTIMATED GFR>60. 12:15 PM [facility] ItbGcdgih855 136 - 145 mmol/L09/30/2024 12:15 PM [facility] CtrPotassium, Bld5.13.5 - 5.1 mmol/L09/30/2024 12:15 PM [facility] Ctr Qljvpssn75392 - 107 mmol/L09/30/2024 12:15 PM [facility] Carbon Cfbaeii81.321.0 - 31.0 mmol/L09/30/2024 12:15 PM [facility] CtrAnion Gap14.86.0 - 15.008 12:15 PM [facility] CtrCalcium9.08.6 - 10.3 mg/dL09/30/2024 12:15 PM [facility] CtrTOTAL PROTEIN7.66.4 - 8.9 g/dL09/30/2024 12:15 PM [facility] CtrALBUMIN LEVEL3.3(L)3.5 - 5.7 g/dL09/30/2024 12:15 PM EDT [facility] CtrGLOBULIN4.3g/dL09/30/2024 12:15 PM [facility] CtrALBUMIN/GLOBULIN RATIO0.808 12:15 PM [facility] CtrBILIRUBIN,TOTAL0.50.3 - 1.0 mg/dL09/30/2024 12:15 PM EDT [facility] CtrASPARTATE AMINO UTZIRWTFLXW39(H)13 - 39 U/L 09/30/2024 12:15 PM [facility] CtrALANINE PCQDAAYIPCXCICSZ21 (H)7 - 52 U/L09/30/2024 12:15 PM [facility] CtrALKALINE NPULEFYJONL998(H)34 - 104 U/L09/30/2024 12:15 PM [facility] CtrSpecimen (Source)Anatomical Location / LateralityCollection Method / Volume Collection TimeReceived TimeOtherTopography unknown / Gygeiuq0109/30/2024 10:30 AM EDT09/30/2024 10:30 AM EDT Narrative [facility] - 09/30/2024 12:15 PM EDT NON FASTING Authorizing ProviderResult TypeResult StatusTimuzair Severino DOLAB BLOOD ORDERABLESFinal ResultPerforming OrganizationAddressCity/State/ZIP CodePhone Number [facility] [address] [place] [address], [facility] [address] [place] [address] * JOSHUA 2 NEOGENOMIC (09/30/2024 10:29 AM EDT)ComponentValueRef RangeTest Method Analysis TimePerformed AtPathologist SignatureJAK 2 SMBKVIUGFC44/18/2025 8:58 AM [facility] CtrComment:See report. Scanned copy available in EMR.Specimen (Source)Anatomical Location / LateralityCollection Method / VolumeCollection TimeReceived TimeOtherTopography unknown / Oyqwvaf6009/30/2024 10:29 AM EDT09/30/2024 10:29 AM EDT Narrative Authorizing ProviderResult TypeResult StatusBlane Severino DOFIRELANDSFinal ResultPerforming OrganizationAddressCity/State/ZIP CodePhone Number [facility] [address] [place] [address], [facility] [address] [place] [address] * IMMUNOFIXATION,SERUM ([facility]) (09/30/2024 10:29 AM EDT)ComponentValueRef Range Test MethodAnalysis TimePerformed AtPathologist SignatureIMMUNOFIXATION, SERUM Comment.10/02/2024 4:09 PM EDTFIRELANDSComment:No monoclonality detected. IMMUNOGLOBULIN G1,582215 - 1,602 mg/dL10/02/2024 4:09 PM EDTFIREMASON [facility] IMMUNOGLOBULIN A, GYOIV90198 - 352 mg/dL10/02/2024 4:09 PM EDTFIREMASON GENERAL [facility]OSPITAL IMMUNOGLOBULIN M, LIEYD95271 - 217 mg/dL10/02/2024 4:09 PM EDTFIRELANDS Comment: Performed at: ?? - [facility] [address] ??[id number] Abseiling Instructor: Jose Perea PhD, Phone: ??[phone] Specimen (Source)Anatomical Location / LateralityCollection Method / Volume Collection TimeReceived TimeOtherTopography unknown / Vkkbwrk7309/30/2024 10:29 AM EDT09/30/2024 10:29 AM EDT Narrative Authorizing ProviderResult TypeResult StatusBlane Severino [facility] BLOOD ORDERABLESFinal ResultPerforming OrganizationAddressCity/State/ZIP CodePhone Number [facility] [address] [place] [id number], * (ABNORMAL) Iron and TIBC (09/30/2024 10:29 AM EDT)ComponentValueRef RangeTest MethodAnalysis TimePerformed AtPathologist RwrqidjkvLOGA66(L)50 - 212 ug/dL 09/30/2024 12:13 PM [facility] CtrTOTAL IRON BINDING TQLGUDMW005743 - 450 ug/dL09/30/2024 12:13 PM [facility] Ctr% IRON SATURATION5.0(L)20 - 50 %09/30/2024 12:13 PM [facility] NahFXFCJNZMOYK446(L)203 - 362 mg/dL09/30/2024 12:13 PM [facility] CtrSpecimen (Source)Anatomical Location / Laterality Collection Method / VolumeCollection TimeReceived TimeOtherTopography unknown / Zikqyhq83/01/2025 10:29 AM EDT09/30/2024 10:29 AM EDT Narrative [facility] - 09/30/2024 12:33 PM EDT NOT FASTING Authorizing ProviderResult TypeResult StatusBlane COUGHLIN BLOOD ORDERABLESFinal ResultPerforming OrganizationAddressCity/State/ZIP CodePhone Number [facility] [address] [place] [address], [facility] [address] [place] [address] * Protein electrophoresis, serum (09/30/2024 10:29 AM EDT)ComponentValueRef RangeTest MethodAnalysis TimePerformed AtPathologist SignatureTOTAL PROTEIN, SERUM7.56.0 - 8.5 g/dL10/01/2024 4:09 PM EDTFIRELANDSALBUMIN, SERUM2.42.9 - 4.4 g/dL10/01/2024 4:09 PM TEHBRJWNWZPCFQCCQ-3-OWTSHBVV8.70.0 - 0.4 g/dL 10/01/2024 4:09 PM XKCLQSTZHNOIMMJLB-0-WUCHURWM2.60.4 - 1.0 g/dL10/01/2024 4:09 PM EDTFIRELANDSBETA GLOBULIN1.40.7 - 1.3 g/dL10/01/2024 4:09 PM EDT FIRELANDSGAMMA GLOBULIN1.40.4 - 1.8 g/dL10/01/2024 4:09 PM EDTFIRELANDSM-SPIKE Comment:Not Observed g/dL10/01/2024 4:09 PM EDTFIRELANDSComment: SPE shows asymmetrical beta. Suggest serum MADAY and free light chain analysis for further evaluation. GLOBULIN, TOTAL5.12.2 - 3.9 g/dL10/01/2024 4:09 PM EDTFIRELANDSA/G RATIO0.50.7 - 1.7010/01/2024 4:09 PM EDTFIRELANDSSPE-NOTEComment.10/01/2024 4:09 PM EDT FIRELANDSComment: Protein electrophoresis scan will follow via computer, mail, or home health physical therapist delivery. Performed at: ?? - [facility] [address], [place], [place] [id number] Abseiling Instructor: Jose Perea PhD, Phone: ??[phone] Specimen (Source)Anatomical Location / LateralityCollection Method / Volume Collection TimeReceived TimeOtherTopography unknown / Rpnuogk0409/30/2024 10:29 AM EDT09/30/2024 10:29 AM EDT Narrative Authorizing ProviderResult TypeResult StatusTimuzair Lamarmarilyn DOLAB BLOOD ORDERABLESFinal ResultPerforming OrganizationAddressty/State/ZIP CodePhone Number [address] [place] [address], * Lactate dehydrogenase (09/30/2024 10:29 AM EDT)ComponentValueRef RangeTest MethodAnalysis TimePerformed AtPathologist SignatureLDH LACTATE DEHYDROGENASE 781821 - 271 U/L09/30/2024 12:13 PM [facility] CtrSpecimen (Source)Anatomical Location / LateralityCollection Method / VolumeCollection TimeReceived TimeOtherTopography unknown / Jrbjffz3509/30/2024 10:29 AM EDT 09/30/2024 10:29 AM EDT Narrative [facility] - 09/30/2024 12:33 PM EDT NOT FASTING Authorizing ProviderResult TypeResult StatusTimuzair Severino [facility] BLOOD ORDERABLESFinal ResultPerforming OrganizationAddressCity/State/ZIP CodePhone Number [address] [address], [facility] [address] [place] [address] * (ABNORMAL) Ferritin (09/30/2024 10:29 AM EDT)ComponentValueRef RangeTest MethodAnalysis TimePerformed AtPathologist BuczpzbihBKXKUZPZ744.8(H)11.0 - 306.8 ng/mL09/30/2024 12:33 PM [facility] CtrSpecimen (Source)Anatomical Location / LateralityCollection Method / VolumeCollection TimeReceived TimeOtherTopography unknown / Xdxwlki6109/30/2024 10:29 AM EDT 09/30/2024 10:29 AM EDT Narrative [facility] - 09/30/2024 12:33 PM EDT NOT FASTING Authorizing ProviderResult TypeResult StatusTimuzair Lamarmarilyn DOLAB BLOOD ORDERABLESFinal ResultPerforming OrganizationAddressty/State/ZIP CodePhone Number [address] [place] [address], [facility] [address] [place] [address] from Last 3 Months Insurance * Guarantor: Emma Mahan TypeRelation to PatientDate of BirthPhone Billing AddressPersonal/MtsnyfIypp32/[birth year][address] [id number] Care Teams Team MemberRelationshipSpecialtyStart DateEnd Date Blane Beavers DO [address] [facility] [address] [place] [address] PCP - GeneralFamily Cfusghqs17/22/23 Penelope Wakler APRN-METAL FABRICATION SUPERVISOR [address] [facility] [address] [place] [address] Nurse PractitionerBehavioral Health07/28/22
[2024-12-24 15:14] LABS: INR 0.98; Partial Thromboplastin Time 26.6 sec (22.3-36.2); Prothrombin Time 10.4 sec (9.0-11.6)
== END 2024-12-24 14:33 | disposition home or self-care (01) ==
LOC: PST 14:32
PROVIDERS: PCP Family Medicine; Visit Provider Urology
DX: Z01.812 Encounter for preprocedural laboratory examination (principal); N20.1 Calculus of ureter; N20.0 Calculus of kidney
CPT/HCPCS: 85610; 85730

== ENCOUNTER 2024-12-25 08:14 | Day surgery (SDC) | payer OTHER, SELFPAY ==
[2024-12-24 14:58] VITALS: BP 134/85; PULSE 98; TEMP 36.4; O2SAT 98; BMI 33.8
[2024-12-25] VITALS (16 sets, daily range): BP systolic 114–154; BP diastolic 78–96; PULSE 88–121; TEMP 36.1–36.2; O2SAT 90–98; BMI 33.5
--- NOTE | 2024-12-25 08:15 | XR_ITS ---
The [address] [address] Patient Name: LEONA GOODSON MRN: [id number] date: 1995 Sex: F Assigned Patient Location: [facility] Current Patient Location: [facility] Accession/Order Number: [id number] Exam Date: 12/25/2024 08:20 Report Date: 12/25/2024 10:36 At the request of: HAIDER SOUZA MD Procedure: XR abdomen 1V SINGLE VIEW ABDOMEN COMPARISON: CT 12/22/2024 CLINICAL DATA: Presurgical evaluation for cystoscopy. Kidney stones and right stent Supine view the abdomen and pelvis was obtained. There is a right internal ureteral stent. Air and stool are present within the colon. There is also air within the stomach. The kidneys are partially obscured. There is a stone at the mid to lower pole of the left kidney measuring approximately 4 mm in size. There is still a cluster of multiple stones at the inferior pole on the right. There is also subtle calcification along the capsule of the right kidney. There are no suspect radiopaque stones along the course of the stent. No soft tissue masses are seen. The bony structures are intact. XR/XR abdomen 1V IMPRESSION: CONTINUED BILATERAL NEPHROLITHIASIS. RIGHT INTERNAL URETERAL STENT, SIMILAR TO THE PRIOR. Impression dictated by: Vannessa Alfaro M.D. 12/25/2024 10:36 AM Dictation Location: [place] [address] Electronically authenticated by: [id number] Y Date: 12/25/2024 10:36
--- OUTSIDE RECORDS SUMMARY | 2024-12-25 08:20 | XMS_ITS | Encounter Summary ---
Author Organization [facility] Address [address] [place] [address] Care Team Providers Care Curtain Stretcher Assembler Name Role Phone Sury-Penelope Saldana APRN-FAMILY SUPPORT WORKER Unavailable Blane Beavers DO Primary Care Provider [phone] Encounter Details DateTypeDepartmentCare Team (Latest Contact Info)Curwlqmvmep61/05/2025Patient Outreach [facility] [address] [place] [address] Alix Aguirre LPN [address] [place] [address] Social History Tobacco UseTypesPacks/DayYears UsedDateSmoking Tobacco: NeverSmokeless Tobacco: NeverAlcohol UseStandard Drinks/WeekCommentsNot Currently0 (1 standard drink = 0.6 oz pure alcohol)80-200 mg of caffiene, energy [id number] Health Literacy AnswerDate RecordedHow often do you need to have [...] times a week09/25/2024How often do you attend jewish or christian services?Never09/25/2024Do you belong to any clubs or organizations such as jewish groups, unions, fraternal or athletic groups, or school groups?No09/25/2024How often do you attend meetings of the clubs or organizations you belong to?Never09/25/2024re you , , , , never , or living with a partner?Wyszjkb1509/25/2024UDIT-C AnswerDate RecordedQ1: How often do you have [...] heating?Not very hard09/25/2024 PHQ-2AnswerDate RecordedPatient Health Questionnaire-2 Uvdhc903[facility] [place] of Occupational Health - Occupational Stress QuestionnaireAnswerDate [...] steady place to sleep or [facility] (including now)?No02/09/2023Housing Stability Vital SignAnswerDate RecordedIn the last 12 months, was there a time when you were not able to pay the mortgage or rent on time?No09/25/2024In the past 12 months, how many times have you moved where you were living?t any time in the past 12 months, were you homeless or living in a nursing home (including now)?No09/25/2024 EducationAnswerDate RecordedWhat is the highest level of school you have completed or the highest degree you have received?Master's degree (e.g., MA, MS, Jennifer, MEd, RN [employer]PARTUM, NILAM)4CommentsUnknownSex and Gender Information ValueDate RecordedSex Assigned at BirthNot on fileLegal YucGupzho70/15/2023 6:35 PM EDTGender IdentityNot on fileSexual OrientationNot on fileOccupationIndustry Job Start DateJob End DateNot on fileNot on fileNot on fileNot on filedocumented as of this encounter Plan of Treatment DateTypeDepartmentCare Team (Latest Contact Info)Jgktouwstdp92/20/2025 1:00 PM ESTOffice Visit [facility] [place] [facility] [address] [facility] [address] [place] [address] Penelope Walker, EQUIPMENT DETAILER-FAMILY SUPPORT WORKER [address] [facility] [address] [place] [address] documented as of this encounter Visit Diagnoses Diagnosis Kidney stones- Primary Calculus of kidney Dysuria documented in this encounter Additional Health Concerns AssessmentNoted TimePHQ-9 Depression Total Score: 3:06 PM EDT documented as of this encounter Care Teams Team MemberRelationshipSpecialtyStart DateEnd Date Blane Beavers DO [address] [place] [address] PCP - GeneralFamily Ttmimipo59/22/23 Penelope Walker, EQUIPMENT DETAILER-FAMILY SUPPORT WORKER [address] [facility] [address] [place] [address] Nurse PractitionerBehavioral Health07/28/22documented as of this encounter
--- OUTSIDE RECORDS SUMMARY | 2024-12-25 08:20 | XMS_ITS | Clinical Summary ---
Author Organization [facility] Address [address] [facility] [place] [address] Care Team Providers Care Survey Research Manager Name Role Phone Unavailable Primary Care Provider Unavailabl e Source Comments The following information is NOT included in Care Everywhere downloads:Psychiatric notes, ECG results, Cardiac Rehab notes, Pulmonary Function notes, data from SmartForms (includes but not limited toPregnancy data,audiograms, eye exams, pre-surgical evaluation notes, well-child exam data).[facility] Social History Tobacco UseTypesPacks/DayYears UsedDateSmoking Tobacco: Never Assessed CommentsUnknownSex and Gender InformationValueDate RecordedSex Assigned at Not on fileLegal QtvHtkxux99/04/2025 1:34 PM EDTGender IdentityNot on fileSexual OrientationNot on file Last Filed Vital Signs Vital SignReadingTime TakenCommentsBlood Nmmkxmrq930/7108 3:34 AM EDT Aaogc8531 3:34 AM UOWAfjsrtagpdd58.7 ??C (99.8 ??F)09/24/2024 3:34 AM EDTRespiratory Nvvk4446 3:34 AM EDTOxygen Jscevxbini47%09/24/2024 3:34 AM EDTRAInhaled Oxygen Concentration--Weight--Height--Body Mass Index-- Plan of Treatment Health MaintenanceDue DateLast DoneCommentsHIV Test12/18/2010Hepatitis C Deocwlqa05/30/2014Tdap Saclujk8012/18/2013Hepatitis A (HAV) Vaccine (optional start 19+ years)12/18/2014Hepatitis B (HBV) Vaccine (1 of 3 - 19+ 3-dose series) 12/18/2014Pap Smear10/30/2017HPV Vaccine (optional start 27-45 years)12/18/2022 COVID-19 Vaccine ( - 2024- season)2024Influenza Vaccine (#1)2024 Shingles (RZV) Vaccine (1 of 2)12/18/2045MammographyDiscontinuedPneumococcal Vaccine(s)Aged OutNo longer eligible based on patient's age to complete this topic Insurance * Guarantor: Emma MahanAccount TypeRelation to PatientDate of BirthPhone Billing AddressPersonal/YidvbnQkrm32/30/[address] [address]
--- OUTSIDE RECORDS SUMMARY | 2024-12-25 08:20 | XMS_ITS | Clinical Summary ---
Author Organization [facility] Address [address] [place] [address] Care Team Providers Care Cigar Making Machine Operator Name Role Phone Unavailable Primary Care Provider Unavailabl e Allergies Active AllergyReactionsCriticalityNoted DateCommentsEtonogestrel-Ethinyl EstradiolOther: See Adintzli29/15/2025 Medications MedicationSigDispense QuantityRefillsLast FilledStart DateEnd DateStatus sertraline [...] Apply 1 patch as directed.5Active Encounters DateTypeDepartmentCare ZdboMsweqokthqr10/18/2025Telephone Hematology/Medical Oncology [facility] [place] [address] Marquita Rosario MD Patient Wodyez8010/03/2024 3:20 PM EDTOffice Visit Urology [address] [facility] [place] [address] Jose Townsend MD Calculus of kidney with calculus of ureter (Primary Dx); Postprocedural hematoma of a genitourinary system organ or structure following a genitourinary system procedure; Aspiration pneumonia, unspecified aspiration pneumonia type, unspecified laterality, unspecified part of lung (HCC); Thrombocytosis; Leukocytosis, unspecified type10/03/20245536Taqdei36/14/2025Telephone Urology [address] [place] [address] Jose Townsend MD 09/30/2024Nurse Triage NURSE FORM RAISER [address] [place] [address] Marianne Sears, GEOFF Blurred Visionfrom Last 3 Months Immunizations ImmunizationAdministration DatesNext Dueinfluenza vaccine, unspecified gzaepiuxvov56/16/2024 Social History Tobacco UseTypesPacks/DayYears UsedDateSmoking Tobacco: Never AssessedArea Deprivation IndexAnswerDate RecordedNational Score (1-100), lower number is lower xiyp350010/03/2024State Score (1-10), lower number is lower wnlw50010/03/2024 Data from: https://www.neighborhoodatlas.[facility]/. Last address used for lrobnlmvhan[address] [facility] [address]/03/2024CommentsUnknownSex and Gender InformationValueDate RecordedSex Assigned at BirthNot on fileLegal SexFemale 03/16/2023 11:25 AM ESTGender IdentityNot on fileSexual OrientationNot on file Last Filed Vital Signs Vital SignReadingTime TakenCommentsBlood Gkooqdbk592/78010/03/2024 3:51 PM EDT Vinyv707010/03/2024 3:51 PM EDTTemperature--Respiratory Rate--Oxygen Saturation-- Inhaled Oxygen Concentration--Zgtrgy38.6 kg (180 lb)10/03/2024 3:51 PM EDTHeight --Body Mass Index-- Plan of Treatment Health MaintenanceDue DateLast DoneCommentsAnxiety Iuzisewyq40/30/2014Depression Wxozhddoh15/30/2014HIV Hngwspnfu71/30/2014Hepatitis C Wnyknhrso56/30/2014 Cervical Cancer Mqjrqppvj31/30/2017HPV Vaccine (1 - 3-dose SCDM series) 3Covid-19 Vaccine ( - season)511/, 12/08/2020 Influenza Vaccine (#1)501/, 12/22/2022, 11/25/2019, Additional history existsDTaP,Tdap,Td Vaccine (9 - Td or Tdap)9103/27/2018, 10/09/2017, 10/23/2014, Additional history existsHepatitis B VaccineCompleted 07/01/1996, 02/29/1996, 1995 Insurance * Guarantor: Emma Mahan TypeRelation to PatientDate of BirthPhone Billing AddressPersonal/DhbupcVdzv34/30/[address] [address]
--- OUTSIDE RECORDS SUMMARY | 2024-12-25 08:20 | XMS_ITS | Clinical Summary ---
Author Organization [facility] Address [address] [place] [address] Care Team Providers Care Tab Cutter Name Role Phone Penelope Walker APRN-FIELD CROPS HARVEST MACHINE OPERATOR Unavailable Blane Beavers DO Primary Care Provider Allergies Active AllergyReactionsCriticalityNoted DateCommentsEtonogestrel-Ethinyl RizddwhhhYmods97/13/2023 Severe depression Medications MedicationSigDispense QuantityRefillsLast FilledStart DateEnd [...] (two) times a day as needed for /06/2025 11/27/2024Discontinued(Therapy completed) ketorolac (Toradol) 10 MG tablet [...] every 6 (six) hours if needed for ckdtpiwi06/06/2025 11/27/2024Discontinued(Therapy completed) Cariprazine HCl (Vraylar) 3 MG capsule Indications:Bipolar 2 disorder (HCC)Take 1 capsule by mouth Daily 30 capsule Discontinued(Reorder) Active Problems ProblemNoted DateDiagnosed DateChronic oberprnr88/08/8281Phbkljj01/08/2025Kidney mkxtsm5509/26/2024Nausea and cfzvexfr29/08/2025 Overview (09/26/2024): Outside Source Comment: Problem List clean-up per request of Phys. EHR Cmte Abnormal cytological findings in specimens from other organs, systems and yvekzyg73/21/2023Cannabis abuse02/08/2023ervical high risk HPV (human papillomavirus) test qaykxrkh35/21/5726Ipuuhtgxez56/21/2023isorder of female genital organ02/08/2023Menstrual uknnsjxw22/21/2023ipolar 2 xffoavpr78/13/2023 Nigoptu0107/01/2022 Encounters DateTypeDepartmentCare XiqaZqaynucruvj65/05/2025Patient Outreach [facility] [address] [place] [address] Alix Aguirre, RECOVERY SPECIALIST 11/27/2024 3:00 PM EDTOffice Visit [facility] [address] [place] [phone] Penelope Walker, VALIDATION TECHNICIAN-FIELD CROPS HARVEST MACHINE OPERATOR Bipolar 2 disorder (HCC); Aopshtl9411/27/2024amboo flowsheet [facility] [address] [place] [phone] SuryPenelope Wang, VALIDATION TECHNICIAN-FIELD CROPS HARVEST MACHINE OPERATOR 11/27/20240653Dslgol36/26/2025Patient Outreach [facility] [address] [place] [address] Dayana, RECOVERY SPECIALIST 11/12/2024bstract [facility] [address] [place] [address] Blane Beavers, DO 11/06/2024Refill [facility] [address] [place] [address] Penelope Walker, VALIDATION TECHNICIAN-FIELD CROPS HARVEST MACHINE OPERATOR Bipolar 2 disorder (HCC)10/17/2024External Result Encounter [facility] External Department Unsolicited Blane Severino, DO 10/10/2024bstract [facility] [address] [place] [address] Blane Beavers, DO 09/30/2024External Result Encounter [facility] [...] Department Unsolicited Blane Severino, DO 09/26/2024bstract [facility] [address] [place] [address] Blane Beavers, DO 09/26/2024bstract [facility] [address] [place] [address] Blane Beavers, DO 09/26/2024Patient Outreach [facility] [address] [place] [address] Beth Jha RN 09/25/2024Travelfrom Last 3 Months Immunizations ImmunizationAdministration DatesNext DueDTaP, Umpafbnxytx08/07/2002,01/15/1998, 07/01/1996,05/01/1996,02/29/1996Hep B, Adolescent or Idhwtiwgm80/13/1997, 02/29/1996,1995IPV04/25/2001,01/15/1998,05/01/1996,02/29/1996Influenza, Kpalsmiaacw02/03/2023,11/25/2019,01/24/2019Influenza, injectable, MDCK, preservative free, vvirlvhashid69/06/2019Influenza, injectable, quadrivalent 03/06/2023Influenza, injectable, quadrivalent, preservative free12/22/2022, 11/25/2019MMR03/06/2019,08/16/2001,04/06/1997PPD Test10/24/2022,05/09/2019, 05/02/2019,02/28/2019Polio, Ieggciixbuq78/07/2002,01/15/1998,05/01/1996, 02/29/1996Tdap103/27/2018,10/09/2017,10/23/20147395Hyihabktt65/08/2001 Family History Medical HistoryRelationNameCommentsHypertensionFatherBrianTesticular cancer FatherBrianDiabetesMotherRebeccaDepressionMother's BrotherDJSchizophrenia Mother's BrotherDJCrohn's diseaseMother's SisterLung cancerPaternal Grandfather PlrpjpxxWbztAicroxEsaarjtyIbfenrg4Ogjhenoz3YegdikFnqyyTkrwaSfyewbWfbxksvAcsxc Mother's BrotherDJMother's SisterPaternal GrandfatherSon2 Social History Tobacco UseTypesPacks/DayYears UsedDateSmoking Tobacco: NeverSmokeless Tobacco: Never Tobacco Cessation:Counseling Given: Not Answered Alcohol UseStandard Drinks/WeekCommentsNot Currently0 (1 standard drink = 0.6 oz pure alcohol)80-200 mg of caffiene, energy cxeafbO0126 Health LiteracyAnswerDate RecordedHow often do you need [...] times a week09/25/2024How often do you attend hindu or zoroastrianism services?Never09/25/2024Do you belong to any clubs or organizations such as hindu groups, unions, fraternal or athletic groups, or school groups?No09/25/2024How often do you attend meetings of the clubs or organizations you belong to?Never09/25/2024re you , , , , never , or living with a partner?Aojmkhh2609/25/2024UDIT-C AnswerDate RecordedQ1: How often do you have [...] heating?Not very hard09/25/2024 PHQ-2AnswerDate RecordedPatient Health Questionnaire-2 Mtfvr637Finse[facility] [place] - Occupational Stress QuestionnaireAnswerDate [...] were you homeless or living in a long-term (including now)?No09/25/2024 EducationAnswerDate RecordedWhat is the highest level of school you have completed or the highest degree you have received?Master's degree (e.g., MA, MS, Jennifer, MEd, TIE INSPECTOR, NILAM)4CommentsUnknownSex and Gender Information ValueDate RecordedSex Assigned at BirthNot on fileLegal WobRpwbuz01/15/2023 6:35 PM EDTGender IdentityNot on fileSexual OrientationNot on fileOccupationIndustry Job Start DateJob End DateNot on fileNot on fileNot on fileNot on file Last Filed Vital Signs Vital SignReadingTime TakenCommentsBlood Tncbtusm091/8610 3:00 PM EDT Ochni269811/27/2024 3:00 PM YJSWuulspvzdol09.3 ??C (97.4 ??F)04/08/2024 9:02 AM ESTRespiratory Rate--Oxygen Atcgvtsdst83%04/08/2024 9:02 AM ESTInhaled Oxygen Concentration--Jnormd22.6 kg (180 lb)11/27/2024 3:00 PM SUWKcepav877.5 cm (5' 2 )04/08/2024 9:02 AM ESTBody Mass Index32.9204/08/2024 9:02 AM EST Plan of Treatment DateTypeDepartmentCare Team (Latest Contact Info)Cmevqrpwdzv42/20/2025 1:00 PM ESTOffice Visit [facility] [address] [facility] [address] [place] [address] Penelope Walker, VALIDATION TECHNICIAN-FIELD CROPS HARVEST MACHINE OPERATOR [address] [facility] [address] [place] [address] Health MaintenanceDue DateLast DoneCommentsCOVID-19 Vaccine ( season) 511/, 12/08/2020Influenza Vaccine (#1)501/, 12/22/2022, 12/22/2022, Additional history existsPneumococcal Vaccine: Pediatrics (0 to 5 Years) and At-Risk Patients (6 to 64 Years)Aged OutNo longer eligible based on patient's age to complete this topic Procedures Procedure NamePriorityDate/TimeAssociated DiagnosisCommentsCBC WITH AUTO EYHBUJTGJBDYLpnilcl97/29/2025 2:10 PM EDT FR KAPPA/LAMBDA LTC HDZYCYldbuom86/12/2025 10:30 AM EDT PATHOLOGIST SLIDE REVIEW ([facility])Wowyhqu7509/30/2024 10:30 AM EDT COMPREHENSIVE METABOLIC WHMIUOcqkjga60/12/2025 10:30 AM EDT SCAN AND WSGTtxzojl76/12/2025 10:30 AM EDT JOSHUA 2 STMQSNIYSQGepzove24/12/2025 10:29 AM EDT IMMUNOFIXATION,SERUM ([facility])Helypqa2209/30/2024 10:29 AM EDT PROTEIN ELECTROPHORESIS, EEZHWBnkgwhl83/12/2025 10:29 AM EDT GJCYUXOGHljtuel87/12/2025 10:29 AM EDT IRON AND TOTAL IRON BINDING PMPPWENQWkwfwma93/12/2025 10:29 AM EDT LACTATE FOERMMJSXQUYBFrjnarv08/12/2025 10:29 AM EDT from Last 3 Months Results * (ABNORMAL) CBC auto differential (10/17/2024 2:10 PM EDT)ComponentValueRef RangeTest MethodAnalysis TimePerformed AtPathologist SignatureWBC9.43.8 - 11.6 [CFU]/mL10/17/2024 2:31 PM [facility] CtrUNCORRECTED WHITE BLOOD COUNT9.43.8 - 11.6 10*3/uL10/17/2024 2:31 PM [facility] CtrRBC4.323.60 - 5.00 10*6/uL10/17/2024 2:31 PM [facility] UsaYZCBGSOPMZ62.6(L)11.8 - 15.4 g/dL10/17/2024 2:31 PM [facility] HamDVKUPTNMFM41.534.0 - 46.4 %10/17/2024 2:31 PM [facility] CmcHUX76.8(L)80 - 100 fL10/17/2024 2:31 PM [facility] VblDPB05.924.7 - 34.3 pg10/17/2024 2:31 PM [facility] VtrJYSE18.732.0 - 35.0 g/dL10/17/2024 2:31 PM [facility] CtrRED CELL DISTRIBUTION WIDTH, RDW18.9(H)11.9 - 15.3 % 10/17/2024 2:31 PM [facility] CtrPLATELET QFOWN703(H)150 - 450 10*3/uL10/17/2024 2:31 PM [facility] CtrMEAN PLATELET VOLUME, MPV7.36.3 - 10.7 fL10/17/2024 2:31 PM [facility] CtrNEUTROPHILS, %54.0. %10/17/2024 2:31 PM [facility] Ctr LYMPHOCYTES, %34.2. %10/17/2024 2:31 PM [facility] Ctr MONOCYTE/MACROPHAGE, %6.4. %10/17/2024 2:31 PM [facility] CtrEOSINOPHILS, %4.4. %10/17/2024 2:31 PM [facility] Ctr BASOPHILS, %1.0. %10/17/2024 2:31 PM [facility] CtrNRBC0.00 - 0.5 /100{WBC}10/17/2024 2:31 PM [facility] Ctr NEUTROPHILS5.11.8 - 7.7 10*3/10/17/2024 2:31 PM [facility] CtrLYMPHOCYTES3.21.00 - 4.8 10*3/10/17/2024 2:31 PM [facility] CtrMONOCYTES0.60.0 - 0.8 10*3/10/17/2024 2:31 PM [facility] CtrEOSINOPHILS0.40.0 - 0.45 10*3/10/17/2024 2:31 PM [facility] CtrBASOPHILS0.10.0 - 0.2 10*3/10/17/2024 2:31 PM [facility] CtrSpecimen (Source)Anatomical Location / LateralityCollection Method / VolumeCollection TimeReceived TimeBlood (Blood)10/17/2024 2:10 PM EDT10/17/2024 2:18 PM EDT Narrative Authorizing ProviderResult TypeResult StatusBlane Severino DOLAB BLOOD ORDERABLESFinal ResultPerforming OrganizationAddressCity/State/ZIP CodePhone Number [place] [address] [place] [address], [facility] [address] [facility] [place] [address] * FR KAPPA/LAMBDA LTC URINE (09/30/2024 10:30 AM EDT)ComponentValueRef RangeTest MethodAnalysis TimePerformed AtPathologist SignatureFREE KAPPA LIGHT CHAINS, EOAYU691.801.17 - 86.46 mg/L10/02/2024 6:36 AM EDTFIRELANDSFREE LAMBDA LT CHAINS, RYCUL317.240.27 - 15.21 mg/L10/02/2024 6:36 AM EDTFIRELANDS KAPPA/LAMBDA RATIO 24 HR UR3.981.83 - 14.2608 6:36 AM EDTFIREVETERANS HEALTH ADMINISTRATION Comment: Performed at: ?? - [facility] [address] ??[id number] Area Mechanic: Dov López MD, Phone: ??[phone] Specimen (Source)Anatomical Location / LateralityCollection Method / Volume Collection TimeReceived TimeUrineTopography unknown / Lytoyjd2709/30/2024 10:30 AM EDT09/30/2024 10:30 AM EDT Narrative Authorizing ProviderResult TypeResult StatusBlane Severino DOLAB BLOOD ORDERABLESFinal ResultPerforming OrganizationAddressCity/State/ZIP CodePhone Number [facility] [address] [place] [address], * (ABNORMAL) SCAN AND CBC (09/30/2024 10:30 AM EDT)ComponentValueRef RangeTest MethodAnalysis TimePerformed AtPathologist ZvwwzluziQWT84.3(H)3.8 - 11.6 [CFU]/mL09/30/2024 11:34 AM [facility] CtrUNCORRECTED WHITE BLOOD COUNT18.3(H)3.8 - 11.6 10*3/uL09/30/2024 11:34 AM [facility] CtrRBC4.133.60 - 5.00 10*6/uL09/30/2024 11:34 AM [facility] YjpEFUOVHRDVR50.9(L)11.8 - 15.4 g/dL09/30/2024 11:34 AM EDT [facility] AvgUUPJRPOLLP94.6(L)34.0 - 46.4 %09/30/2024 11:34 AM [facility] XrpGOZ76.1(L)80 - 100 fL09/30/2024 11:34 AM [facility] WzpCBZ26.424.7 - 34.3 pg09/30/2024 11:34 AM [facility] PyjHEMF91.432.0 - 35.0 g/dL09/30/2024 11:34 AM [facility] CtrRED CELL DISTRIBUTION WIDTH, RDW17.2(H)11.9 - 15.3 %09/30/2024 11:34 AM [facility] CtrPLATELET COUNT1,095 (HH)150 - 450 10*3/uL09/30/2024 11:36 AM [facility]tr Comment: Critical value result called at 1136 on 09/30/24 MEAN PLATELET VOLUME, MPV7.06.3 - 10.7 fL09/30/2024 11:34 AM [facility] CtrNEUTROPHILS, %75.2. %09/30/2024 12:13 PM [facility] CtrLYMPHOCYTES, %17.1. %09/30/2024 12:13 PM [facility] CtrMONOCYTE/MACROPHAGE, %5.8. %09/30/2024 12:13 PM [facility] CtrEOSINOPHILS, %1.1. %09/30/2024 12:13 PM [facility] CtrBASOPHILS, %0.8. %09/30/2024 12:13 PM [facility] CtrNRBC0.10 - 0.5 /100{WBC}09/30/2024 12:13 PM [facility] VfbVFXXAOGLPCG11.8(H)1.8 - 7.7 10*3/uL09/30/2024 12:13 PM [facility] CtrLYMPHOCYTES3.11.00 - 4.8 10*3/uL09/30/2024 12:13 PM [facility] CtrMONOCYTES1.1(H)0.0 - 0.8 10*3/uL09/30/2024 12:13 PM [facility] CtrEOSINOPHILS0.20.0 - 0.45 10*3/uL09/30/2024 12:13 PM [facility] CtrBASOPHILS0.10.0 - 0.2 10*3/uL 09/30/2024 12:13 PM [facility] CtrANISOCYTOSISModerate 09/30/2024 12:13 PM [facility] CtrPLATELET ESTIMATEIncreased Wwnqfx2909/30/2024 12:13 PM [facility] CtrPLATELET MORPHOLOGY GlcydqJcmvkj81/12/2025 12:13 PM [facility] CtrADDITIONAL UZEQQCCR20/12/2025 12:14 PM [facility] CtrComment: Thrombocytosis is often reactive in nature. ??If the thrombocytosis remains persistent and unexplained for greater than 3 months, recommend additional hematologic work-up or hematology consultation as clinically indicated. Slide referred to pathologist for review Specimen (Source)Anatomical Location / LateralityCollection Method / Volume Collection TimeReceived TimeBlood (Blood)09/30/2024 10:30 AM EDT09/30/2024 10:30 AM EDT Narrative Authorizing ProviderResult TypeResult StatusTimuzair Severino [facility] BLOOD ORDERABLESFinal ResultPerforming OrganizationAddressCity/State/ZIP CodePhone Number [facility] [address] [place] [address], [facility] [address] [place] [address] * PATHOLOGIST SLIDE REVIEW ([facility]) (09/30/2024 10:30 AM EDT)ComponentValueRef RangeTest MethodAnalysis TimePerformed AtPathologist SignaturePATHOLOGIST SLIDE REVIEWOrdered Path Buolgm9309/30/2024 12:16 PM [facility] CtrSpecimen (Source)Anatomical Location / LateralityCollection Method / VolumeCollection TimeReceived TimeOtherTopography unknown / Unknown 09/30/2024 10:30 AM EDT09/30/2024 10:30 AM EDT Narrative Authorizing ProviderResult TypeResult StatusTimuzair Severino DOLAB BLOOD ORDERABLESFinal ResultPerforming OrganizationAddressCity/State/ZIP CodePhone Number [facility] [address] [place] [address], [facility] [address] [place] [address] * (ABNORMAL) Comprehensive metabolic panel (09/30/2024 10:30 AM EDT)Component ValueRef RangeTest MethodAnalysis TimePerformed AtPathologist SignatureGlucose 9770 - 100 mg/dL09/30/2024 12:15 PM [facility] CtrComment: Random Glucose Reference Range is dependent on time and content of last meal. Glucose of more than 200 mg/dL in a nonstressed, ambulatory subject supports the diagnosis of Diabetes Mellitus. ADA recommended reference range XIY393 - 25 mg/dL09/30/2024 12:15 PM [facility] CtrCREATININE 0.980.60 - 1.20 mg/dL09/30/2024 12:15 PM [facility] Ctr ESTIMATED GFR>60. 12:15 PM [facility] WhpPpeqxh541 136 - 145 mmol/L09/30/2024 12:15 PM [facility] CtrPotassium, Bld5.13.5 - 5.1 mmol/L09/30/2024 12:15 PM [facility] Ctr Bogeyhxl45386 - 107 mmol/L09/30/2024 12:15 PM [facility] Ctr Carbon Bcbbtyy22.321.0 - 31.0 mmol/L09/30/2024 12:15 PM [facility] CtrAnion Gap14.86.0 - 15.008 12:15 PM [facility] CtrCalcium9.08.6 - 10.3 mg/dL09/30/2024 12:15 PM [facility] CtrTOTAL PROTEIN7.66.4 - 8.9 g/dL09/30/2024 12:15 PM [facility] CtrALBUMIN LEVEL3.3(L)3.5 - 5.7 g/dL09/30/2024 12:15 PM T [facility] CtrGLOBULIN4.3g/dL09/30/2024 12:15 PM [facility] CtrALBUMIN/GLOBULIN RATIO0.808 12:15 PM [facility] CtrBILIRUBIN,TOTAL0.50.3 - 1.0 mg/dL09/30/2024 12:15 PM EDT [facility] CtrASPARTATE AMINO OWNSIUYUCOQ06(H)13 - 39 U/L 09/30/2024 12:15 PM [facility] CtrALANINE DRVZXQCRRZOFMIQJ44 (H)7 - 52 U/L09/30/2024 12:15 PM [facility] CtrALKALINE HRPZYGBFIEC646(H)34 - 104 U/L09/30/2024 12:15 PM [facility] CtrSpecimen (Source)Anatomical Location / LateralityCollection Method / Volume Collection TimeReceived TimeOtherTopography unknown / Dojhwbw8609/30/2024 10:30 AM EDT09/30/2024 10:30 AM EDT Narrative [facility] - 09/30/2024 12:15 PM EDT NON FASTING Authorizing ProviderResult TypeResult StatusBlane Severino DOLAB BLOOD ORDERABLESFinal ResultPerforming OrganizationAddressCity/State/ZIP CodePhone Number [facility] [address] [place] [address], [facility] [address] [place] [address] * JOSHUA 2 NEOGENOMIC (09/30/2024 10:29 AM EDT)ComponentValueRef RangeTest Method Analysis TimePerformed AtPathologist SignatureJAK 2 MAQPOTYDTU01/18/2025 8:58 AM [facility] CtrComment:See report. Scanned copy available in EMR.Specimen (Source)Anatomical Location / LateralityCollection Method / VolumeCollection TimeReceived TimeOtherTopography unknown / Mphbych8109/30/2024 10:29 AM EDT09/30/2024 10:29 AM EDT Narrative Authorizing ProviderResult TypeResult StatusBlane Severino DOFIRELANDSFinal ResultPerforming OrganizationAddressty/State/ZIP CodePhone Number [facility] [address] [place] [address], [facility] [address] [place] [address] * IMMUNOFIXATION,SERUM (FR) (09/30/2024 10:29 AM EDT)ComponentValueRef Range Test MethodAnalysis TimePerformed AtPathologist SignatureIMMUNOFIXATION, SERUM Comment.10/02/2024 4:09 PM EDTFIREVETERANS HEALTH ADMINISTRATIONComment:No monoclonality detected. IMMUNOGLOBULIN G1,063233 - 1,602 mg/dL10/02/2024 4:09 PM EDTFIREVETERANS HEALTH ADMINISTRATION IMMUNOGLOBULIN A, YLQES72241 - 352 mg/dL10/02/2024 4:09 PM EDTFIREVETERANS HEALTH ADMINISTRATION IMMUNOGLOBULIN M, AWSVV65523 - 217 mg/dL10/02/2024 4:09 PM [facility] Comment: Performed at: ??CB - [facility] [address] ??[id number] Area Mechanic: Jose Perea PhD, Phone: ??[phone] Specimen (Source)Anatomical Location / LateralityCollection Method / Volume Collection TimeReceived TimeOtherTopography unknown / Gqqiqat0209/30/2024 10:29 AM EDT09/30/2024 10:29 AM EDT Narrative Authorizing ProviderResult TypeResult StatusBlane Severino DOLAB BLOOD ORDERABLESFinal ResultPerforming OrganizationAddressCity/State/ZIP CodePhone Number [facility] [address] [place] [address], * (ABNORMAL) Iron and TIBC (09/30/2024 10:29 AM EDT)ComponentValueRef RangeTest MethodAnalysis TimePerformed AtPathologist LsxjmlbxzWZCI24(L)50 - 212 ug/dL 09/30/2024 12:13 PM [facility] CtrTOTAL IRON BINDING UYPHJJHG113736 - 450 ug/dL09/30/2024 12:13 PM [facility] Ctr% IRON SATURATION5.0(L)20 - 50 %09/30/2024 12:13 PM [facility] LayADCNPLXBWRM542(L)203 - 362 mg/dL09/30/2024 12:13 PM [facility] CtrSpecimen (Source)Anatomical Location / Laterality Collection Method / VolumeCollection TimeReceived TimeOtherTopography unknown / Gbpmggw6109/30/2024 10:29 AM EDT09/30/2024 10:29 AM EDT Narrative [facility] - 09/30/2024 12:33 PM EDT NOT FASTING Authorizing ProviderResult TypeResult StatusBlane Severino DOLAB BLOOD ORDERABLESFinal ResultPerforming OrganizationAddressCity/State/ZIP CodePhone Number [facility] [address] [place] [address], [facility] [address] [place] [address] * Protein electrophoresis, serum (09/30/2024 10:29 AM EDT)ComponentValueRef RangeTest MethodAnalysis TimePerformed AtPathologist SignatureTOTAL PROTEIN, SERUM7.56.0 - 8.5 g/dL10/01/2024 4:09 PM EDTFIRELANDSALBUMIN, SERUM2.42.9 - 4.4 g/dL10/01/2024 4:09 PM UZPNENLRSBMCOFCRP-0-NLDRYOCW0.70.0 - 0.4 g/dL 10/01/2024 4:09 PM ESSPGFJILVEOELDOQ-6-JGMOILFG4.60.4 - 1.0 g/dL10/01/2024 4:09 PM EDTFIRELANDSBETA GLOBULIN1.40.7 [...] scan will follow via computer, mail, or cisco engineer delivery. Performed at: ?? - [facility] [address] ??[id number] Area Mechanic: Jose Perea PhD, Phone: ??[phone] Specimen (Source)Anatomical Location / LateralityCollection Method / Volume Collection TimeReceived TimeOtherTopography unknown / Olrghoa2509/30/2024 10:29 AM EDT09/30/2024 10:29 AM EDT Narrative Authorizing ProviderResult TypeResult StatusTimuzair Severino DOLAB BLOOD ORDERABLESFinal ResultPerforming OrganizationAddressCity/State/ZIP CodePhone Number [facility] [address] [place] [address], * Lactate dehydrogenase (09/30/2024 10:29 AM EDT)ComponentValueRef RangeTest MethodAnalysis TimePerformed AtPathologist SignatureLDH LACTATE DEHYDROGENASE 753055 - 271 U/L09/30/2024 12:13 PM [facility] CtrSpecimen (Source)Anatomical Location / LateralityCollection Method / VolumeCollection TimeReceived TimeOtherTopography unknown / Whetpyh2809/30/2024 10:29 AM EDT 09/30/2024 10:29 AM EDT Narrative [facility] - 09/30/2024 12:33 PM EDT NOT FASTING Authorizing ProviderResult TypeResult StatusTimuzair Severino [facility] BLOOD ORDERABLESFinal ResultPerforming OrganizationAddressCity/State/ZIP CodePhone Number [facility] [address] [place] [address], [facility] [address] [place] [address] * (ABNORMAL) Ferritin (09/30/2024 10:29 AM EDT)ComponentValueRef RangeTest MethodAnalysis TimePerformed AtPathologist HxjldzcejILWVRUBH643.8(H)11.0 - 306.8 ng/mL09/30/2024 12:33 PM [facility] CtrSpecimen (Source)Anatomical Location / LateralityCollection Method / VolumeCollection TimeReceived TimeOtherTopography unknown / Attxyjy6709/30/2024 10:29 AM EDT 09/30/2024 10:29 AM EDT Narrative [facility] - 09/30/2024 12:33 PM EDT NOT FASTING Authorizing ProviderResult TypeResult StatusTimuzair Lamarmarilyn DOLAB BLOOD ORDERABLESFinal ResultPerforming OrganizationAddressCity/State/ZIP CodePhone Number [facility] [address] [place] [address], [facility] [address] [place] [address] from Last 3 Months Insurance * Guarantor: Emma Mahan TypeRelation to PatientDate of BirthPhone Billing AddressPersonal/BlzbqeWnre44/[birth year][address] [address] Care Teams Team MemberRelationshipSpecialtyStart DateEnd Date Blane Beavers DO [address] [facility] [address] [place] [address] PCP - GeneralFamily Zulmqtsb21/22/23 Penelope Walker, VALIDATION TECHNICIAN-FIELD CROPS HARVEST MACHINE OPERATOR [address] [facility] [address] [place] [address] Nurse PractitionerBehavioral Health07/28/22
--- OUTSIDE RECORDS SUMMARY | 2024-12-25 08:21 | XMS_ITS ---
Author Organization [facility] Address [address] [place] [address] Care Team Providers Care Vehicle Dismantler Name Role Phone Penelope Walker APRN-[facility] Unavailable Blane Beavers DO Primary Care Provider [phone] Emergency Department Transitional Care Management (TCM) Status:Identified (Enrolling) Start date:12/23/2024 Enrollment reason:Identified using hospital discharge data Overview Discharged from [facility] ER on 12/23. Please contact within 2 days of discharge for ERTOC and schedule a follow-up appointment if needed. NameJensen Aguirre LPN(Responsible Staff)Licensed Practical Nurse [phone] Continued Care and Services Coordination
--- OUTSIDE RECORDS SUMMARY | 2024-12-25 08:21 | XMS_ITS | Clinical Summary ---
Author Organization [facility] [employer] [facility] tem Address [id number] [address] [place] [address] Care Team Providers Care Lead Blender Name Role Phone Unavailable Primary Care Provider Unavailabl e Allergies Active AllergyReactionsCriticalityNoted DateCommentsEtonogestrel-Ethinyl Hpdubwoqx31/01/2021 Medications MedicationSigDispense QuantityRefillsLast FilledStart DateEnd DateStatus sertraline [...] Problems ProblemNoted DateDiagnosed DateFlank pain10/01/2024 Encounters DateTypeDepartmentCare FvuxYjobagcshpu28/13/2025 8:54 AM EDT - 10/01/2024 2:33 PM EDTEmergency [facility] [address] [place] [address] Boaz Fraser DO Ford, Jeffrey S, MD Flank pain (Primary Dx) Discharge Disposition: Left Against Medical Advice or Discontinued Care 10/01/2024Travelfrom Last 3 Months Family History Medical HistoryRelationNameCommentsHypertensionFatherCrohn's diseaseMaternal AuntDepressionMaternal UncleSchizophreniaMaternal UncleLung cancerPaternal GrandfatherRelationNameStatusCommentsBrotherAliveDaughterAliveFatherAlive Maternal AuntMaternal UncleMotherAlivePaternal GrandfatherSonAlive Social History Tobacco UseTypesPacks/DayYears UsedDateSmoking Tobacco: NeverSmokeless Tobacco: NeverAlcohol UseStandard Drinks/WeekCommentsNot Currently0 (1 standard drink = 0.6 oz pure alcohol)ChildcareAnswerDate LxmmaiwyGgkjvaxemKebovbm77/09/2019 EmploymentAnswerDate JltgqnjkTwdkblhgpmLgarxqe36/09/2019Hunger ScreeningAnswer Date RecordedWithin the past 12 months we worried whether our food would run out before we got money to buy more.Never True10/01/2024Within the past 12 months the food we bought just didn't last and we didn't have money to get more.Never True10/01/2024Purpose - LifeAnswerDate RecordedPurpose and direction in life Rfklxrw14/11/2021CommentsNoSex and Gender InformationValueDate Recorded Sex Assigned at BirthNot on fileLegal UnmMyhuae38/06/2015 12:11 PM EDTGender IdentityNot on fileSexual OrientationNot on file Last Filed Vital Signs Vital SignReadingTime TakenCommentsBlood Coqjwycx911/9008 2:28 PM EDT Izxkp110410/01/2024 2:28 PM SSHBqkgcizzylp08.3 ??C (99.2 ??F)10/01/2024 9:15 AM EDTRespiratory Gwgn669310/01/2024 2:28 PM EDTOxygen Epvbazrtbe55%10/01/2024 2:28 PM EDTInhaled Oxygen Concentration--Gtnvoz59.2 kg (143 lb 12.8 oz)05/25/2020 9:08 AM EXAXoaffb994 cm (5' 3 )05/25/2020 9:08 AM EDTBody Mass Index25.47 05/25/2020 9:08 AM EDT Plan of Treatment Health MaintenanceDue DateLast DoneCommentsDepression Kxybunded92/30/2008Tobacco Lzdwyvphd46/30/2008dult BMI Htmflqrsv13/30/2014Pap Smear/12/2019 COVID-19 Vaccine ( season)511/, 12/08/2020Influenza Vrkvpfm40/, 12/22/2022, 11/25/2019, Additional history exists DTaP,Tdap and Td Vaccines (9 - Td or Tdap), 10/09/2017, 10/23/2014, Additional history exists Medical Devices Not on file Procedures Procedure NamePriorityDate/TimeAssociated DiagnosisCommentsPOCT NURSING URINE MACROSCOPIC OTFhrcbqf49/13/2025 11:26 AM EDT ER EXTRA URINE RNYSMZLTRH27/13/2025 11:12 AM EDT ER EXTRA URINE YUVVLNBXUPS40/13/2025 11:12 AM EDT ER EXTRA ROVZXCKRA76/13/2025 11:12 AM EDT BLOOD CFXGBYILAAT01/13/2025 10:34 AM EDT BLOOD LHBMOHAZTLP56/13/2025 10:[address] ABDOMEN AND PELVIS W OAEOZQFE28/13/2025 9:55 AM EDT MUNOZ TOP ON FHOMFPR0610/01/2024 9:27 AM EDT LAVENDER YQVHMOB0710/01/2024 9:27 AM EDT PST FUCHAMU0110/01/2024 9:27 AM EDT BLUE JAXNIUL0010/01/2024 9:27 AM EDT LACTATE W/ REFLEXAdd-On08/ 9:27 AM EDT MAGNESIUMSTAT Add-on10/01/2024 9:27 AM EDT COMPREHENSIVE METABOLIC PANELSTAT Add-on10/01/2024 9:27 AM EDT CBC WITH AUTO DIFFERENTIALSTAT Add-on10/01/2024 9:27 AM EDT RAINBOW VAKFOMHA92/13/2025 9:27 AM EDT HIGH RISK HPV W/XLLEHvagkrs92/11/2020 from Last 3 Months or Most Recently Relevant to Health Maintenance Results * (ABNORMAL) POCT Nursing Urine Macroscopic UA (10/01/2024 11:26 AM EDT) ComponentValueRef RangeTest MethodAnalysis TimePerformed AtPathologist [facility] Urine Specific Gravity1.0101.010, 1.015, 1.020, 1.4700710/01/2024 11:18 AM [facility] Urine Leukocyte EsteraseSmall(A) Oxguxohs51/13/2025 11:18 AM [facility] Urine Nitrite AroszjmwNftlhuzi53/13/2025 11:18 AM [facility] Urine pH 6.55.0, 6.0, 6.5, 7.0, 7.5, 8.0, 8.5, 5.5010/01/2024 11:18 AM [facility] Urine ProteinTrace(A)Tmlclobb45/13/2025 11:18 AM EDT [facility] Urine BdcdhidIkufreveNxojjzuq32/13/2025 11:18 AM [facility] Urine DjnounxOmknxgxwSzdlrzif86/13/2025 11:18 AM [facility] Urine Urobilinogen0.2 E.U./dL10/01/2024 11:18 AM [facility] Urine BilirubinNegativeNegative 10/01/2024 11:18 AM [facility] Urine Blood/HGBSmall(A) Ylvjmcah39/13/2025 11:18 AM [facility] LABORATORYSpecimen (Source) Anatomical Location / LateralityCollection Method / VolumeCollection Time Received DgxvXbmfg63/13/2025 11:26 AM EDT10/01/2024 11:18 AM EDT Narrative Authorizing ProviderResult TypeResult StatusRobert W Fraser DOPOINT OF CARE TEST ORDERABLESFinal ResultPerforming OrganizationAddressCity/State/ZIP Code Phone Number [facility] [address] [place] [address], [place] * Extra Urine [place] (10/01/2024 11:12 AM EDT)ComponentValueRef RangeTest Method Analysis TimePerformed AtPathologist SignatureExtra TubeAuto Resulted 10/01/2024 1:01 PM [facility] LABORATORYSpecimen (Source) Anatomical Location / LateralityCollection Method / VolumeCollection Time Received TimeUrineUrine specimen collection, clean catch / Daolcnp9910/01/2024 11:12 AM EDT10/01/2024 11:59 AM EDT Narrative Authorizing ProviderResult TypeResult StatusRobert W Fraser DOURINE ORDERABLES Final ResultPerforming OrganizationAddressCity/State/ZIP CodePhone Number [facility] [address] [place] [address], * Extra Urine Culture (10/01/2024 11:12 AM EDT)ComponentValueRef RangeTest MethodAnalysis TimePerformed AtPathologist SignatureExtra TubeAuto Resulted 10/01/2024 1:01 PM [facility] LABORATORYSpecimen (Source) Anatomical Location / LateralityCollection Method / VolumeCollection Time Received TimeUrineUrine specimen collection, clean catch / Dwshbsa1710/01/2024 11:12 AM EDT10/01/2024 11:59 AM EDT Narrative Authorizing ProviderResult TypeResult StatusRobert W Fraser DOURINE ORDERABLES Final ResultPerforming OrganizationAddressCity/State/ZIP CodePhone Number [facility] [address] [place] [address], * Extra Urine (10/01/2024 11:12 AM EDT)ComponentValueRef RangeTest Method Analysis TimePerformed AtPathologist SignatureExtra TubeAuto Resulted 10/01/2024 1:01 PM [facility] LABORATORYSpecimen (Source) Anatomical Location / LateralityCollection Method / VolumeCollection Time Received TimeUrineUrine specimen collection, clean catch / Ilnmlua8710/01/2024 11:12 AM EDT10/01/2024 11:59 AM EDT Narrative Authorizing ProviderResult TypeResult StatusRobert W Fraser DOURINE ORDERABLES Final ResultPerforming OrganizationAddressCity/State/ZIP CodePhone Number [facility] [address] [place] [address], * Blood culture #2 (10/01/2024 10:34 AM EDT) Only the most recent of2 resultswithin the time period is included. ComponentValueRef RangeTest MethodAnalysis TimePerformed AtPathologist Signature CULTURE RESULTSNO GROWTH 5 DAYS10/06/2024 12:02 PM [facility] LABORATORYSpecimen (Source)Anatomical Location / LateralityCollection Method / VolumeCollection TimeReceived TimeBloodVenous blood / UnknownVenipuncture / Jxxkdkg1310/01/2024 10:34 AM EDT10/01/2024 11:21 AM EDT Narrative Authorizing ProviderResult TypeResult StatusAndrew D Warren MDMICROBIOLOGY - GENERAL ORDERABLESFinal ResultPerforming OrganizationAddressCity/State/ZIP CodePhone Number [facility] [address] [place] [address], * CT abdomen and pelvis with contrast [...] AtPathologist SignatureExtra TubeAuto Resulted 10/01/2024 11:01 AM [facility] LABORATORYSpecimen (Source) Anatomical Location / LateralityCollection Method / VolumeCollection Time Received TimeBloodVenous blood / Gruddmh0210/01/2024 9:27 AM EDT10/01/2024 10:14 AM EDT Narrative Authorizing ProviderResult TypeResult StatusRobert W [facility] BLOOD ORDERABLESFinal ResultPerforming OrganizationAddressCity/State/ZIP CodePhone Number [facility] [address] [place] [address], [place] [phone] * Lactate w/ Reflex (10/01/2024 9:27 AM EDT)ComponentValueRef RangeTest Method Analysis TimePerformed AtPathologist SignatureLACTATE W/REFLEX1.40.4 - 2.0 mmol/L10/01/2024 10:33 AM [facility] LABORATORYSpecimen (Source)Anatomical Location / LateralityCollection Method / VolumeCollection TimeReceived TimeBloodVenous blood / Tvemlou0810/01/2024 9:27 AM EDT10/01/2024 10:14 AM EDT Narrative [facility] - 10/01/2024 10:33 AM EDT Result did not trigger repeat Lactate, re-order if needed. Authorizing ProviderResult TypeResult StatusKam DELGADILLO BLOOD ORDERABLESFinal ResultPerforming OrganizationAddressCity/State/ZIP CodePhone Number [facility] [address] [place] [address], * (ABNORMAL) CBC auto differential (10/01/2024 9:27 AM EDT)ComponentValueRef RangeTest MethodAnalysis TimePerformed AtPathologist XiypmbfdxFDK88.3(H)4 - 11 x10E9/L10/01/2024 10:36 AM [facility] LABORATORYRBC Count3.94 3.8 - 5.2 X10E12/L10/01/2024 10:36 AM [facility] Iamvivijno99.2(L)11.7 - 15.5 g/dL10/01/2024 10:36 AM [facility] YWARRSHEUEVmucvubppd34.0(L)35 - 47 %10/01/2024 10:36 AM [facility] YMCJIHEGLFQMX45(L)80 - 100 fL10/01/2024 10:36 AM [facility] WHBTWIAKPKSER63.9(L)27 - 34 pg10/01/2024 10:36 AM [facility] IDIAZSIHFTHCPE13.032 - 36 g/dL10/01/2024 10:36 AM [facility] MRLJDRXUHYMBA20.6(H)11.5 - 15 %10/01/2024 10:36 AM [facility] LABORATORYPlatelet Count1,005(HH)150 - 450 X10E9/L10/01/2024 10:36 AM [facility] LABORATORYMPV7.17 - 12 fL10/01/2024 10:36 AM [facility] LABORATORYNeutrophils %83%10/01/2024 10:36 AM [facility] LABORATORYComment:This is an appended report. These results have been appended to a previously preliminary verified report. Lymphocytes %14%10/01/2024 10:36 AM [facility] Comment:This is an appended report. These results have been appended to a previously preliminary verified report.Monocytes %3%10/01/2024 10:36 [address] EDT [facility] LABORATORYComment:This is an appended report. These results have been appended to a previously preliminary verified report. Neutrophils Absolute (M)16.0(H)1.5 - 6.6 10*3/uL10/01/2024 10:36 AM [facility] LABORATORYComment:This is an appended report. These results have been appended to a previously preliminary verified report.Lymphocytes Absolute2.71.0 - 3.5 10*3/uL10/01/2024 10:36 AM [facility] LABORATORYComment:This is an appended report. These results have been appended to a previously preliminary verified report.Monocytes Absolute0.60.0 - 0.9 10*3/uL10/01/2024 10:36 AM [facility] LABORATORYComment:This is an appended report. These results have been appended to a previously preliminary verified report.Rouleaux1+10/01/2024 10:36 AM [facility] LABORATORYComment:This is an appended report. These results have been appended to a previously preliminary verified report.Differential TypeMANUAL QZWVSJUTLNLG04/13/2025 10:36 AM [facility] LABORATORYComment: This is an appended report. These results have been appended to a previously preliminary verified report.Specimen (Source)Anatomical Location / Laterality Collection Method / VolumeCollection TimeReceived TimeBloodVenous blood / Doyirsr3110/01/2024 9:27 AM EDT10/01/2024 9:38 AM EDT Narrative Authorizing ProviderResult TypeResult StatusRobert W [facility] BLOOD ORDERABLESFinal ResultPerforming OrganizationAddressCity/State/ZIP CodePhone Number [facility] [address] [place] [address], * Lavender Top (10/01/2024 9:27 AM EDT)ComponentValueRef RangeTest Method Analysis TimePerformed AtPathologist SignatureExtra TubeAuto Resulted 10/01/2024 11:01 AM [facility] LABORATORYSpecimen (Source) Anatomical Location / LateralityCollection Method / VolumeCollection Time Received TimeBloodVenous blood / Pueyybi7810/01/2024 9:27 AM EDT10/01/2024 9:38 AM EDT Narrative Authorizing ProviderResult TypeResult StatusRobert W Fraser DOLAB BLOOD ORDERABLESFinal ResultPerforming OrganizationAddressCity/State/ZIP CodePhone Number [facility] [address] [place] [address], * PST TOP (10/01/2024 9:27 AM EDT)ComponentValueRef RangeTest MethodAnalysis TimePerformed AtPathologist SignatureExtra TubeAuto Jepuiuvv00/13/2025 11:01 AM [facility] LABORATORYSpecimen (Source)Anatomical Location / LateralityCollection Method / VolumeCollection TimeReceived TimeBloodVenous blood / Jhaiaap3510/01/2024 9:27 AM EDT10/01/2024 9:38 AM EDT Narrative Authorizing ProviderResult TypeResult StatusRobert W Fraser DOLAB BLOOD ORDERABLESFinal ResultPerforming OrganizationAddressCity/State/ZIP CodePhone Number [facility] [address] [place] [address], * Light Blue Top (10/01/2024 9:27 AM EDT)ComponentValueRef RangeTest Method Analysis TimePerformed AtPathologist SignatureExtra TubeAuto Resulted 10/01/2024 11:01 AM [facility] LABORATORYSpecimen (Source) Anatomical Location / LateralityCollection Method / VolumeCollection Time Received TimeBloodVenous blood / Jefviez2910/01/2024 9:27 AM EDT10/01/2024 9:38 AM EDT Narrative Authorizing ProviderResult TypeResult StatusRobert W Fraser DOLAB BLOOD ORDERABLESFinal ResultPerforming OrganizationAddressCity/State/ZIP CodePhone Number [facility] [address] [place] [address], * Magnesium (10/01/2024 9:27 AM EDT)ComponentValueRef RangeTest MethodAnalysis TimePerformed AtPathologist SignatureMAGNESIUM2.31.8 - 2.6 mg/dL10/01/2024 10:15 AM [facility] LABORATORYSpecimen (Source)Anatomical Location / LateralityCollection Method / VolumeCollection TimeReceived Time BloodVenous blood / Nkpssis2410/01/2024 9:27 AM EDT10/01/2024 9:38 AM EDT Narrative Authorizing ProviderResult TypeResult StatusRobert W [facility] BLOOD ORDERABLESFinal ResultPerforming OrganizationAddressCity/State/ZIP CodePhone Number [facility] [address] [place] [address], * (ABNORMAL) Comprehensive metabolic panel (10/01/2024 9:27 AM EDT)Component ValueRef RangeTest MethodAnalysis TimePerformed AtPathologist SignatureSODIUM 143079 - 146 mmol/L10/01/2024 10:15 AM [facility] POTASSIUM4.33.5 - 5.0 mmol/L10/01/2024 10:15 AM [facility] VVGKCGZYNZQLDOFOJR91(L)98 - 109 mmol/L10/01/2024 10:15 AM [facility] LABORATORYCARBON YGDIVZZ1624 - 32 mmol/L10/01/2024 10:15 AM [facility] LABORATORYANION QOR463 - 15 mmol/L10/01/2024 10:[address]T [facility] LABORATORYBLOOD UREA BYCDPJGB285 - 23 mg/dL10/01/2024 10:15 AM [facility] LABORATORYCREATININE1.06(H)0.40 - 1.00 mg/dL10/01/2024 10:15 AM [facility] LABORATORYComment:METHOD TRACEABLE TO IDMS JCHNRULHKLOKEJW782(H)65 - 99 mg/dL10/01/2024 10:[address]T [facility] LABORATORYCALCIUM9.38.5 - 10.5 mg/dL10/01/2024 10:15 AM [facility] LABORATORYTOTAL PROTEIN8.2(H)6.0 - 8.0 g/dL 10/01/2024 10:15 AM [facility] LABORATORYALBUMIN3.43.2 - 5.3 g/dL10/01/2024 10:15 AM [facility] LABORATORYALKALINE CSJOSTLRTQQ349(H)39 - 130 U/L10/01/2024 10:15 AM [facility] ZKPBSQAGIRKBL60<=41 U/L10/01/2024 10:15 AM [facility] ORZIVTVLZMTTV63(H)<=31 U/L10/01/2024 10:15 AM [facility] LABORATORYBILIRUBIN,TOTAL0.60.3 - 1.2 mg/dL10/01/2024 10:15 AM [facility] LABORATORYEGFR Non-Race Jyzaqidle67>=60 ml/min/1.73sq.m 10/01/2024 10:15 AM [facility] LABORATORYComment: Reported eGFR is based on the CKD-EPI 2020 equation that does not use a race coefficient. Specimen (Source)Anatomical Location / LateralityCollection Method / Volume Collection TimeReceived TimeBloodVenous blood / Yuwbrov8410/01/2024 9:27 AM EDT 10/01/2024 9:38 AM EDT Narrative Authorizing ProviderResult TypeResult StatusRobert W [facility] BLOOD ORDERABLESFinal ResultPerforming OrganizationAddressCity/State/ZIP CodePhone Number [facility] [address] [place] [address], [place] [phone] * High risk HPV w/nancy (01/30/2020)ComponentValueRef RangeTest MethodAnalysis TimePerformed AtPathologist SignatureOther High Risk HpvSee attached report MANUALLY TRANSCRIBED RESULTSComment:See attached report Narrative Authorizing ProviderResult TypeResult StatusNot In System Ref [facility] BLOOD ORDERABLESEdited Result - FinalPerforming OrganizationAddressCity/State/ZIP Code Phone Number MANUALLY TRANSCRIBED RESULTS from Last 3 Months or Most Recently Relevant to Health Maintenance Insurance * Guarantor: Emma MahanAccount TypeRelation to PatientDate of BirthPhone Billing AddressPersonal/ZwgdjzBgez69/30[birth year][address] [address] Advance Directives * Full Code (Latest Code Status on File) Date ActivatedDate InactivatedComments09/07/2017 8:59 PM09/07/2017 11:24 PM
[2024-12-25] MEDS: CEFAZOLIN SODIUM 2 GM/50 ML D5W PREMIX IV (09:39)
[2024-12-25] MEDS: IOHEXOL 300 MG/ML - 50 ML BTL INJ (11:14)
--- NOTE | 2024-12-25 11:40 | P.URON_ITS ---
Urology Surgery Operative Note Operative Note Procedure Date: 12/25/24 Time Out Performed: yes Pre-op Diagnosis: Right nephrolithiasis status post stent placement; left UPJ calculus Post-op Diagnosis: same as pre-op Procedures performed: 1. Cystoscopy. 2. Right retrograde pyelogram. 3. Bilateral rigid ureteral dilation. 4. Bilateral ureteroscopy. 5. Right stent changed to 7 [place] variable length. 6. Left pyeloscopy. 7. Thulium laser lithotripsy of left renal calculi. 8. Placement of 6 [place] variable length left ureteral stent. Anesthesia: GETA Primary Surgeon: Jesse Ba Complications: None Estimated blood loss (mL): 5 Findings: 1. Right UPJ and renal pelvis stenosis. 2. Left UPJ calculus and left renal calculus. Specimens: None Drains: 1. Right 7 [place] variable length stent #2. Left 6 [place] variable length stent Indications for Procedures: This lady had bilateral renal calculi. Her right side was a 2 to 3 cm staghorn stone for which she underwent ureteroscopic laser lithotripsy and stent placement. Upon stent removal she became obstructed from some fragments and was rescoped, lasered and restented. After the stent was removed the second time she became obstructed again and was restented. While waiting to get her right side repeated, one of her left renal calculi obstructed her left UPJ. She now presents for bilateral ureteroscopic stone manipulation and possible stent change and placement. She has signed an informed consent after risks were explained. Detailed description of Procedure: The patient was brought to the operating room and placed on the operating room table in the supine position. SCDs were placed on the lower extremities and turned on and functioning during the entire case. Timeout was done by all parties in the room. We all agreed upon the patient's identification and the planned procedures for this patient. Genn. anesthesia was then administered. The patient was then repositioned into the modified dorsal lithotomy position. All pressure points were satisfactorily padded. Genitalia were sterilely prepped and draped in usual fashion. I started by passing a 22 [place] Olympus cystoscope per urethra and in the bladder. The mildly encrusted right stent was grasped and brought out the urethral meatus. A wire was slid up the stent and into the kidney and the old stent was removed. I then passed a 12/14 [place]an ureteral access sheath stylette over the wire and up the ureter. This was removed and then the stylette and sheath were passed over the wire up the ureter to the L5 position. Stylette and wire were then removed. I then passed a flexible ureteroscope through the sheath and into the ureter and ascended up the ureter. As I arrived at the UPJ she had a definite stenosis. The ureteroscope could not get through this. I then did a retrograde through the scope and this showed an extremely narrow UPJ and renal pelvis. Contrast went into the upper pole and lower pole calyces. I then passed a wire through the scope and into the kidney. I then remove the ureteroscope and then passed a open-ended ureteral catheter over the wire and was able to get this through the area into the kidney. The wire was removed and I then did a retrograde through the catheter and this illuminated the area better and we got some contrast into the midpole calyx. The wire was passed back through the catheter and into the midpole calyx. The catheter was removed. I then passed the 12 [place]an stylette over the wire and attempted to dilate this UPJ area but was not able to safely do this. This was removed and I then tried a 10 [place] stylette but still was unable to dilate this area safely. The ureteroscope was repassed into the ureter and I reattempted to get the scope through this area but was unable. The wire was passed back through the scope into the midpole calyx and the scope was removed as was the access sheath. Cystoscope was backloaded over the wire and I then slid a 7 [place]an variable length stent over the wire up into the midpole calyx area. The wire was removed. The stent could not curl but was in the midpole calyx. There was a good curl within the bladder. I then passed a wire up the left ureter into the kidney. I then similarly dilated the ureter with the 10 B[place]an stylette. The stylette and access sheath were then passed over the wire up to the L5 position. The wire and stylette were then removed. I then passed a flexible ureteroscope through the access sheath up into the ureter and ascended up the ureter. At the UPJ I could see a red and irritated ureter representing where the stone was. The wire must of pushed the stone into the renal pelvis. I then did pyeloscopy and arrived at the stone and passed a 270 Angstrom laser fiber through the scope and used the thulium laser at 7 then 10 W on the dusting mode. The stone was 100% dusted. I then looked into all the other calyces. In the midpole there was a large stone over 1 cm in size. I similarly dusted this stone. The fiber was removed and a Glidewire was passed through the scope into the kidney and the scope and sheath were then removed. Cystoscope was backloaded over the wire and passed into the bladder. I then slid a 6 [place]an variable length stent over the wire up into the kidney. The wire was removed and there were good curls in the kidney and in the bladder. The bladder was drained of its contents and the scope was then removed. The anesthetic was then reversed. She was then [facility] and wheeled to PACU in stable condition.
[2024-12-25] MEDS: HYDROMORPHONE HCL 0.5 MG/0.5 ML SYRINGE IV ×3 (11:47→12:12)
--- NOTE | 2024-12-25 12:02 | PC.NURSE ---
1154: pt voices complaints of nausea,order placed per ,awaiting pharmacy to bring over medication.
--- NOTE | 2024-12-25 12:17 | PC.NURSE ---
1212: pt given Emend IV at this time per 's order.
--- NOTE | 2024-12-25 12:31 | PC.NURSE ---
1231: pt voices improvement of nausea and pain.
[2024-12-25] MEDS: SOLIFENACIN SUCCINATE 10 MG TABLET PO (12:41)
--- NOTE | 2024-12-25 13:12 | PC.NURSE ---
1110:pt voids without difficulty.
== END 2024-12-25 13:22 | disposition home or self-care (01) ==
LOC: SURGOUT 08:16
PROVIDERS: PCP Family Medicine; Visit Provider Urology
PROC: (CPT 910; principal; 2024-12-25 09:15)
DX: N20.2 Calculus of kidney with calculus of ureter (principal); F32.A Depression, unspecified; D64.9 Anemia, unspecified; F41.9 Anxiety disorder, unspecified; R79.89 Other specified abnormal findings of blood chemistry; Z98.51 Tubal ligation status; F17.290 Nicotine dependence, other tobacco product, uncomplicated
CPT/HCPCS: 52332; 52356; 36415; 74018; 74420; 84703; J0690; J1100; J1171; J1453; J1885; J2250; J2405; J2704; J3010; Q9967

== ENCOUNTER 2024-12-30 15:06 | Outpatient (OUT) | payer OTHER, SELFPAY ==
--- OUTSIDE RECORDS SUMMARY | 2024-12-30 15:08 | XMS_ITS | Clinical Summary ---
Author Organization [facility] Address [address] [place] [address] Care Team Providers Care Headend Technician Name Role Phone Penelope Walker APRN-VIDEOGAME DESIGNER Unavailable Blane Beavers DO Primary Care Provider [phone] Allergies Active AllergyReactionsCriticalityNoted DateCommentsEtonogestrel-Ethinyl UxznswvacQodwn20/13/2023 Severe depression Medications MedicationSigDispense QuantityRefillsLast FilledStart DateEnd [...] capsule by mouth Daily 90 capsule ctive Active Problems ProblemNoted DateDiagnosed DateChronic yuquhapd70/08/9914Fstzupm56/08/2025Kidney xqnhbf4609/26/2024Nausea and qpinyrlw43/08/2025 Overview (09/26/2024): Outside Source Comment: Problem List clean-up per request of Phys. EHR Cmte Abnormal cytological findings in specimens from other organs, systems and reqinnt6402/08/2023annabis abuse02/08/2023ervical high risk HPV (human papillomavirus) test /21/6937Ibqhynhlen57/21/2023isorder of female genital organ02/08/2023Menstrual pqtpqapg10/21/2023ipolar 2 mjoqdfuj17/13/2023 Bhnijmb5407/01/2022 Encounters DateTypeDepartmentCare ThuuVoxyiqqmanw94/05/2025Patient Outreach [facility] [address] [place] [address] Alix Aguirre, AUTO HEATER MECHANIC 11/27/2024 3:00 PM EDTOffice Visit [facility] [address] [place] [phone] Sury-Penelope Saldana, BUSINESS DEVELOPMENT DIRECTOR-VIDEOGAME DESIGNER Bipolar 2 disorder (HCC); Tqckaug6411/27/2024amboo flowsheet [facility] [address] [place] [phone] Sury-Penelope Saldana, BUSINESS DEVELOPMENT DIRECTOR-VIDEOGAME DESIGNER 11/27/20243732Ezpkjf96/26/2025Patient Outreach [facility] [address] [place] [address] SundayDayana, AUTO HEATER MECHANIC 11/12/2024bstract [facility] [address] [place] [address] Blane Beavers DO 11/06/2024Refill [facility] [address] [place] [phone] Sury-Penelope Saldana M, BUSINESS DEVELOPMENT DIRECTOR-VIDEOGAME DESIGNER Bipolar 2 disorder (HCC)10/17/2024External Result Encounter [facility] External Department Unsolicited Adamowicz, Blane J, DO 10/10/2024bstract [facility] [address] [place] [address] Blane Beavers, DO 09/30/2024External Result Encounter [facility] [...] [facility] External Department Unsolicited Blane Severino, DO from Last 3 Months Immunizations ImmunizationAdministration DatesNext DueDTaP, Hpmqzmwhdng01/07/2002,01/15/1998, 07/01/1996,05/01/1996,02/29/1996Hep B, Adolescent or Twviqlubd81/13/1997, 02/29/1996,1995IPV04/25/2001,01/15/1998,05/01/1996,02/29/1996Influenza, Kigwsbtynko44/03/2023,11/25/2019,01/24/2019Influenza, injectable, MDCK, preservative free, eqpzsanhrxqn97/06/2019Influenza, injectable, quadrivalent 03/06/2023Influenza, injectable, quadrivalent, preservative free12/22/2022, 11/25/2019MMR03/06/2019,08/16/2001,04/06/1997PPD Test10/24/2022,05/09/2019, 05/02/2019,02/28/2019Polio, Cwezsutnrmk79/07/2002,01/15/1998,05/01/1996, 02/29/1996Tdap103/27/2018,10/09/2017,10/23/20141323Zraahzypw87/08/2001 Family History Medical HistoryRelationNameCommentsHypertensionFatherBrianTesticular cancer FatherBrianDiabetesMotherRebeccaDepressionMother's BrotherDJSchizophrenia Mother's BrotherDJCrohn's diseaseMother's SisterLung cancerPaternal Grandfather LoefedfcYkogHqdcaqBsopcqxjBrkespy7Syxefrcz2NbpsfdRqynrHsdydAylqzaZlraxdlOmpru Mother's BrotherDJMother's SisterPaternal GrandfatherSon2 Social History Tobacco UseTypesPacks/DayYears UsedDateSmoking Tobacco: NeverSmokeless Tobacco: Never Tobacco Cessation:Counseling Given: Not Answered Alcohol UseStandard Drinks/WeekCommentsNot Currently0 (1 standard drink = 0.6 oz pure alcohol)80-200 mg of caffiene, energy mhvigyS6931 Health LiteracyAnswerDate RecordedHow often do you need [...] times a week09/25/2024How often do you attend jain or cheondoism services?Never08/07/2025Do you belong to any clubs or organizations such as jain groups, unions, fraternal or athletic groups, or school groups?No09/25/2024How often do you attend meetings of the clubs or organizations you belong to?Never09/25/2024re you , , , , never , or living with a partner?Jgcojil3409/25/2024UDIT-C AnswerDate RecordedQ1: How often do you have [...] heating?Not very hard09/25/2024 PHQ-2AnswerDate RecordedPatient Health Questionnaire-2 Ruauc511[facility] [place] [facility] - Occupational Stress QuestionnaireAnswerDate [...] were you homeless or living in a senior care (including now)?No09/25/2024 EducationAnswerDate RecordedWhat is the highest level of school you have completed or the highest degree you have received?Master's degree (e.g., MA, MS, Jennifer, MEd, TRAIN DRIVER, NILAM)4CommentsUnknownSex and Gender Information ValueDate RecordedSex Assigned at BirthNot on fileLegal MlaWvyufe08/15/2023 6:35 PM EDTGender IdentityNot on fileSexual OrientationNot on fileOccupationIndustry Job Start DateJob End DateNot on fileNot on fileNot on fileNot on file Last Filed Vital Signs Vital SignReadingTime TakenCommentsBlood Wrkzxjdf525/8610/10/2024 3:00 PM EDT Ytqrq8938 3:00 PM IIAPlooeevszjs50.3 ??C (97.4 ??F)04/08/2024 9:02 AM ESTRespiratory Rate--Oxygen Gxpnoggnip96%04/08/2024 9:02 AM ESTInhaled Oxygen Concentration--Pwyqta36.6 kg (180 lb)11/27/2024 3:00 PM ZOYKzjavs775.5 cm (5' 2 )04/08/2024 9:02 AM ESTBody Mass Index32.9204/08/2024 9:02 AM EST Plan of Treatment DateTypeDepartmentCare Team (Latest Contact Info)Bhfqjfbcler49/20/2025 1:00 PM ESTOffice Visit [facility] [address] [facility] [address] [place] [phone] Penelope Walker, BUSINESS DEVELOPMENT DIRECTOR-VIDEOGAME DESIGNER [address] [facility] [address] [place] [address] Health MaintenanceDue DateLast DoneCommentsCOVID-19 Vaccine ( season) 511/, 12/08/2020Influenza Vaccine (#1)501/, 12/22/2022, 12/22/2022, Additional history existsPneumococcal Vaccine: Pediatrics (0 to 5 Years) and At-Risk Patients (6 to 64 Years)Aged OutNo longer eligible based on patient's age to complete this topic Procedures Procedure NamePriorityDate/TimeAssociated DiagnosisCommentsCBC WITH AUTO PIKZPSCSEWATJmwjkrn45/29/2025 2:10 PM EDT FR KAPPA/LAMBDA LTC KMAQIRgdccwy43/12/2025 10:30 AM EDT PATHOLOGIST SLIDE REVIEW ([facility])Eenmtns3409/30/2024 10:30 AM EDT COMPREHENSIVE METABOLIC XNPCWZetlddr79/12/2025 10:30 AM EDT SCAN AND DGOPmuvpln56/12/2025 10:30 AM EDT JOSHUA 2 FJNCUNWEHLRgwjtso23/12/2025 10:29 AM EDT IMMUNOFIXATION,SERUM ([facility])Zgqwpoe4309/30/2024 10:29 AM EDT PROTEIN ELECTROPHORESIS, AIDMERzandjn94/12/2025 10:29 AM EDT VQZVLPXNAucytdb30/12/2025 10:29 AM EDT IRON AND TOTAL IRON BINDING RTBRKMCCWbfuowz85/12/2025 10:29 AM EDT LACTATE SCHQJPBLKDNWGLcfbseo02/12/2025 10:29 AM EDT from Last 3 Months Results * (ABNORMAL) CBC auto differential (10/17/2024 2:10 PM EDT)ComponentValueRef RangeTest MethodAnalysis TimePerformed AtPathologist SignatureWBC9.43.8 - 11.6 [CFU]/mL10/17/2024 2:31 PM [facility] CtrUNCORRECTED WHITE BLOOD COUNT9.43.8 - 11.6 10*3/uL10/17/2024 2:31 PM [facility] CtrRBC4.323.60 - 5.00 10*6/uL10/17/2024 2:31 PM [facility] McsRDDTWZMHAD99.6(L)11.8 - 15.4 g/dL10/17/2024 2:31 PM [facility] BzlLBXBZQXUTV93.534.0 - 46.4 %10/17/2024 2:31 PM [facility] MreMDS10.8(L)80 - 100 fL10/17/2024 2:31 PM [facility] VyzFDP63.924.7 - 34.3 pg10/17/2024 2:31 PM [facility] AvdHOKD31.732.0 - 35.0 g/dL10/17/2024 2:31 PM [facility] CtrRED CELL DISTRIBUTION WIDTH, RDW18.9(H)11.9 - 15.3 % 10/17/2024 2:31 PM [facility] CtrPLATELET WYSVW153(H)150 - 450 10*3/uL10/17/2024 2:31 PM [facility] CtrMEAN PLATELET VOLUME, MPV7.36.3 - 10.7 fL10/17/2024 2:31 PM [facility] CtrNEUTROPHILS, %54.0. %10/17/2024 2:31 PM [facility] Ctr LYMPHOCYTES, %34.2. %10/17/2024 2:31 PM [facility] Ctr MONOCYTE/MACROPHAGE, %6.4. %10/17/2024 2:31 PM [facility] CtrEOSINOPHILS, %4.4. %10/17/2024 2:31 PM [facility] Ctr BASOPHILS, %1.0. %10/17/2024 2:31 PM [facility] CtrNRBC0.00 - 0.5 /100{WBC}10/17/2024 2:31 PM [facility] Ctr NEUTROPHILS5.11.8 - 7.7 10*3/uL10/17/2024 2:31 PM [facility] CtrLYMPHOCYTES3.21.00 - 4.8 10*3/uL10/17/2024 2:31 PM [facility] CtrMONOCYTES0.60.0 - 0.8 10*3/uL10/17/2024 2:31 PM EDT [facility] CtrEOSINOPHILS0.40.0 - 0.45 10*3/uL10/17/2024 2:31 PM [facility] CtrBASOPHILS0.10.0 - 0.2 10*3/uL10/17/2024 2:31 PM [facility] CtrSpecimen (Source)Anatomical Location / LateralityCollection Method / VolumeCollection TimeReceived TimeBlood (Blood)10/17/2024 2:10 PM EDT10/17/2024 2:18 PM EDT Narrative Authorizing ProviderResult TypeResult StatusBlane Severino DOLAB BLOOD ORDERABLESFinal ResultPerforming OrganizationAddressCity/State/ZIP CodePhone Number [facility] [address] [place] [address], [facility] [address] [place] [address] * FR KAPPA/LAMBDA LTC URINE (09/30/2024 10:30 AM EDT)ComponentValueRef RangeTest MethodAnalysis TimePerformed AtPathologist SignatureFREE KAPPA LIGHT CHAINS, ZDYMJ123.801.17 - 86.46 mg/L10/02/2024 6:36 AM EDTFIRENORTHWEST HOSPITALFREE LAMBDA LT CHAINS, FYQXI624.240.27 - 15.21 mg/L10/02/2024 6:36 AM [facility]OR[facility] KAPPA/LAMBDA RATIO 24 HR UR3.981.83 - 14.2608 6:36 AM [facility] Comment: Performed at: ??BN - [facility] [address] ??[id number] Manual Plate Filler: Dov López MD, Phone: ??[phone] Specimen (Source)Anatomical Location / LateralityCollection Method / Volume Collection TimeReceived TimeUrineTopography unknown / Khdtzvn7109/30/2024 10:30 AM EDT09/30/2024 10:30 AM EDT Narrative Authorizing ProviderResult TypeResult StatusBlane Severino DOLAB BLOOD ORDERABLESFinal ResultPerforming OrganizationAddressCity/State/ZIP CodePhone Number [facility] [address] [place] [address], * (ABNORMAL) SCAN AND CBC (09/30/2024 10:30 AM EDT)ComponentValueRef RangeTest MethodAnalysis TimePerformed AtPathologist QjwdkisidKKN42.3(H)3.8 - 11.6 [CFU]/mL09/30/2024 11:34 AM [facility] CtrUNCORRECTED WHITE BLOOD COUNT18.3(H)3.8 - 11.6 10*3/uL09/30/2024 11:34 AM [facility] CtrRBC4.133.60 - 5.00 10*6/uL09/30/2024 11:34 AM [facility] SzaCNZMIOKPXV88.9(L)11.8 - 15.4 g/dL09/30/2024 11:34 AM T [facility] LmjWQUGMNAPAW72.6(L)34.0 - 46.4 %09/30/2024 11:34 AM [facility] ZxzLEK55.1(L)80 - 100 fL09/30/2024 11:34 AM [facility] ScyRCJ03.424.7 - 34.3 pg09/30/2024 11:[address] [facility] CtyJZAE73.432.0 - 35.0 g/dL09/30/2024 11:34 AM [facility] CtrRED CELL DISTRIBUTION WIDTH, RDW17.2(H)11.9 - 15.3 %09/30/2024 11:34 AM [facility] CtrPLATELET COUNT1,095 (HH)150 - 450 10*3/uL09/30/2024 11:36 AM [facility] Ctr Comment: Critical value result called at 1136 on 09/30/24 MEAN PLATELET VOLUME, MPV7.06.3 - 10.7 fL09/30/2024 11:34 AM [facility] CtrNEUTROPHILS, %75.2. %09/30/2024 12:13 PM [facility] CtrLYMPHOCYTES, %17.1. %09/30/2024 12:13 PM [facility] CtrMONOCYTE/MACROPHAGE, %5.8. %09/30/2024 12:13 PM [facility] CtrEOSINOPHILS, %1.1. %09/30/2024 12:13 PM [facility] CtrBASOPHILS, %0.8. %09/30/2024 12:13 PM [facility] CtrNRBC0.10 - 0.5 /100{WBC}09/30/2024 12:13 PM [facility] YakUKGSFKSUCUM66.8(H)1.8 - 7.7 10*3/uL09/30/2024 12:13 PM [facility] CtrLYMPHOCYTES3.11.00 - 4.8 10*3/uL09/30/2024 12:13 PM [facility] CtrMONOCYTES1.1(H)0.0 - 0.8 10*3/uL09/30/2024 12:13 PM [facility] CtrEOSINOPHILS0.20.0 - 0.45 10*3/uL09/30/2024 12:13 PM [facility] CtrBASOPHILS0.10.0 - 0.2 10*3/uL 09/30/2024 12:13 PM [facility] CtrANISOCYTOSISModerate 09/30/2024 12:13 PM [facility] CtrPLATELET ESTIMATEIncreased Usythu4909/30/2024 12:13 PM [facility] CtrPLATELET MORPHOLOGY AscdajJlxgdw40/12/2025 12:13 PM [facility] CtrADDITIONAL HLSSBYIG33/12/2025 12:14 PM [facility] CtrComment: Thrombocytosis is often reactive in nature. [...] CENTER BLOOD ORDERABLESFinal ResultPerforming OrganizationAddressCity/State/ZIP CodePhone Number [facility] [address] [place] [address], [facility] [address] [place] [address] * PATHOLOGIST SLIDE REVIEW ([facility]) (09/30/2024 10:30 AM EDT)ComponentValueRef RangeTest MethodAnalysis TimePerformed AtPathologist SignaturePATHOLOGIST SLIDE REVIEWOrdered Path Pmschl2009/30/2024 12:16 PM [facility] CtrSpecimen (Source)Anatomical Location / LateralityCollection Method / VolumeCollection TimeReceived TimeOtherTopography unknown / Unknown 09/30/2024 10:30 AM EDT09/30/2024 10:30 AM EDT Narrative Authorizing ProviderResult TypeResult StatusBlane ANTONIO BLOOD ORDERABLESFinal ResultPerforming OrganizationAddressCity/State/ZIP CodePhone Number [facility] [address] [place] [address], [facility] [address] [place] [address] * (ABNORMAL) Comprehensive metabolic panel (09/30/2024 10:30 AM EDT)Component ValueRef RangeTest MethodAnalysis TimePerformed AtPathologist SignatureGlucose 9770 - 100 mg/dL09/30/2024 12:15 PM [facility] CtrComment: Random Glucose Reference Range is dependent on time and content of last meal. Glucose of more than 200 mg/dL in a nonstressed, ambulatory subject supports the diagnosis of Diabetes Mellitus. ADA recommended reference range ELG336 - 25 mg/dL09/30/2024 12:15 PM [facility] CtrCREATININE 0.980.60 - 1.20 mg/dL09/30/2024 12:15 PM [facility] Ctr ESTIMATED GFR>60.008 12:15 PM [facility] NueLjqbmx420 136 - 145 mmol/L09/30/2024 12:15 PM [facility] CtrPotassium, Bld5.13.5 - 5.1 mmol/L09/30/2024 12:15 PM [facility] Ctr Tmmhzvuw52908 - 107 mmol/L09/30/2024 12:15 PM [facility] Ctr Carbon Fuyfssr17.321.0 - 31.0 mmol/L09/30/2024 12:15 PM [facility] CtrAnion Gap14.86.0 - 15.008 12:15 PM [facility] CtrCalcium9.08.6 - 10.3 mg/dL09/30/2024 12:15 PM [facility] CtrTOTAL PROTEIN7.66.4 - 8.9 g/dL09/30/2024 12:15 PM [facility] CtrALBUMIN LEVEL3.3(L)3.5 - 5.7 g/dL09/30/2024 12:15 PM [facility] CtrGLOBULIN4.3g/dL09/30/2024 12:15 PM [facility] CtrALBUMIN/GLOBULIN RATIO0.808 12:15 PM [facility] CtrBILIRUBIN,TOTAL0.50.3 - 1.0 mg/dL09/30/2024 12:15 PM [facility] CtrASPARTATE AMINO RSLIOFLAMUT81(H)13 - 39 U/L 09/30/2024 12:15 PM [facility] CtrALANINE NHVMKHJUTFSVQTLT86 (H)7 - 52 U/L09/30/2024 12:15 PM [facility] CtrALKALINE CHDQGFXEMPZ519(H)34 - 104 U/L09/30/2024 12:15 PM [facility] CtrSpecimen (Source)Anatomical Location / LateralityCollection Method / Volume Collection TimeReceived TimeOtherTopography unknown / Yzilpii9509/30/2024 10:30 AM EDT09/30/2024 10:30 AM EDT Narrative [facility] - 09/30/2024 12:15 PM EDT NON FASTING Authorizing ProviderResult TypeResult StatusTimuzair Severino DOLAB BLOOD ORDERABLESFinal ResultPerforming OrganizationAddressCity/State/ZIP CodePhone Number [facility] [address] [place] [address], [facility] [address] [place] [id number] * JOSHUA 2 NEOGENOMIC (09/30/2024 10:29 AM EDT)ComponentValueRef RangeTest Method Analysis TimePerformed AtPathologist SignatureJAK 2 NLHILKNWOW65/18/2025 8:58 AM [facility] CtrComment:See report. Scanned copy available in EMR.Specimen (Source)Anatomical Location / LateralityCollection Method / VolumeCollection TimeReceived TimeOtherTopography unknown / Wjknpvt9909/30/2024 10:29 AM EDT09/30/2024 10:29 AM EDT Narrative Authorizing ProviderResult TypeResult StatusTimuzair Severino DOFIRELANDSFinal ResultPerforming OrganizationAddressCity/State/ZIP CodePhone Number [facility] [address] [place] [address], [facility] [address] [place] [address] * IMMUNOFIXATION,SERUM ([facility]) (09/30/2024 10:29 AM EDT)ComponentValueRef Range Test MethodAnalysis TimePerformed AtPathologist SignatureIMMUNOFIXATION, SERUM Comment.10/02/2024 4:09 PM EDTFIRENORTHWEST HOSPITALComment:No monoclonality detected. IMMUNOGLOBULIN G1,751743 - 1,602 mg/dL10/02/2024 4:09 PM [facility] IMMUNOGLOBULIN A, BTUGR67198 - 352 mg/dL10/02/2024 4:09 PM [facility] IMMUNOGLOBULIN M, FZUMY90722 - 217 mg/dL10/02/2024 4:09 PM [facility] Comment: Performed at: ??CB - [facility] [address] ??[id number] Manual Plate Filler: Jose Perea PhD, Phone: ??[phone] Specimen (Source)Anatomical Location / LateralityCollection Method / Volume Collection TimeReceived TimeOtherTopography unknown / Ukjsrvt6509/30/2024 10:29 AM EDT09/30/2024 10:29 AM EDT Narrative Authorizing ProviderResult TypeResult StatusTimuzair Severino [facility] BLOOD ORDERABLESFinal ResultPerforming OrganizationAddressCity/State/ZIP CodePhone Number [facility] [address] [place] [id number], * (ABNORMAL) Iron and TIBC (09/30/2024 10:29 AM EDT)ComponentValueRef RangeTest MethodAnalysis TimePerformed AtPathologist YdpjwrqazFYMZ35(L)50 - 212 ug/dL 09/30/2024 12:13 PM [facility] CtrTOTAL IRON BINDING CANWRVBS881393 - 450 ug/dL09/30/2024 12:13 PM [facility] Ctr% IRON SATURATION5.0(L)20 - 50 %09/30/2024 12:13 PM [facility] VhcYIQNKYNUCHC446(L)203 - 362 mg/dL09/30/2024 12:13 PM [facility] CtrSpecimen (Source)Anatomical Location / Laterality Collection Method / VolumeCollection TimeReceived TimeOtherTopography unknown / Ftqdbgz7009/30/2024 10:29 AM EDT09/30/2024 10:29 AM EDT Narrative [facility] - 09/30/2024 12:33 PM EDT NOT FASTING Authorizing ProviderResult TypeResult StatusBlane Severino [facility] BLOOD ORDERABLESFinal ResultPerforming OrganizationAddressty/State/ZIP CodePhone Number [facility] [address] [place] [address], [facility] [address] [place] [address] * Protein electrophoresis, serum (09/30/2024 10:29 AM EDT)ComponentValueRef RangeTest MethodAnalysis TimePerformed AtPathologist SignatureTOTAL PROTEIN, SERUM7.56.0 - 8.5 g/dL10/01/2024 4:09 PM EDTFIRELANDSALBUMIN, SERUM2.42.9 - 4.4 g/dL10/01/2024 4:09 PM OSMZZCRCLDUUZAOVI-2-RUHGXZWN9.70.0 - 0.4 g/dL 10/01/2024 4:09 PM SADBKUGEGAJGMPWLW-1-KUXNHXRP9.60.4 - 1.0 g/dL10/01/2024 4:09 PM EDTFIRELANDSBETA GLOBULIN1.40.7 [...] scan will follow via computer, mail, or three dimensional art instructor delivery. Performed at: ?? - [facility] [address] ??[id number] Manual Plate Filler: Jose Perea PhD, Phone: ??[phone] Specimen (Source)Anatomical Location / LateralityCollection Method / Volume Collection TimeReceived TimeOtherTopography unknown / Wuuhvkw5409/30/2024 10:29 AM EDT09/30/2024 10:29 AM EDT Narrative Authorizing ProviderResult TypeResult StatusBlane Severino DOLAB BLOOD ORDERABLESFinal ResultPerforming OrganizationAddressCity/State/ZIP CodePhone Number [facility] [address] * Lactate dehydrogenase (09/30/2024 10:29 AM EDT)ComponentValueRef RangeTest MethodAnalysis TimePerformed AtPathologist SignatureLDH LACTATE DEHYDROGENASE 029435 - 271 U/L09/30/2024 12:13 PM [facility] CtrSpecimen (Source)Anatomical Location / LateralityCollection Method / VolumeCollection TimeReceived TimeOtherTopography unknown / Alfnfqf9909/30/2024 10:29 AM EDT 09/30/2024 10:29 AM EDT [facility] - 09/30/2024 12:33 PM EDT NOT FASTING Authorizing ProviderResult TypeResult StatusTimuzair Lamarmarilyn [facility] BLOOD ORDERABLESFinal ResultPerforming OrganizationAddressCity/State/ZIP CodePhone Number [facility] [address] [place] [address], [facility] [address] [place] [address] * (ABNORMAL) Ferritin (09/30/2024 10:29 AM EDT)ComponentValueRef RangeTest MethodAnalysis TimePerformed AtPathologist FbdtqasfzNXPPOJXO111.8(H)11.0 - 306.8 ng/mL09/30/2024 12:33 PM EDWilson [facility] CtrSpecimen (Source)Anatomical Location / LateralityCollection Method / VolumeCollection TimeReceived TimeOtherTopography unknown / Aubboet7509/30/2024 10:29 AM EDT 09/30/2024 10:29 AM EDT [facility] - 09/30/2024 12:33 PM EDT NOT FASTING Authorizing ProviderResult TypeResult StatusTimuzair Severino [facility] BLOOD ORDERABLESFinal ResultPerforming OrganizationAddressCity/State/ZIP CodePhone Number [facility] [address] [place] [address], [facility] [address] [place] [address] from Last 3 Months Insurance * Guarantor: Emma Mahan TypeRelation to PatientDate of BirthPhone Billing AddressPersonal/RqltorXpme51/[birth year][address] [address] Care Teams Team MemberRelationshipSpecialtyStart DateEnd Date Blane Beavers DO [address] [facility] [address] [place] [address] PCP - GeneralFamily Hxddldhn78/22/23 Penelope Walker APRN-VIDEOGAME DESIGNER [address] [facility] [address] [place] [address] Nurse PractitionerEncompass Health Rehabilitation Hospital [facility] Reading07/28/22
--- OUTSIDE RECORDS SUMMARY | 2024-12-30 15:08 | XMS_ITS ---
Author Organization [facility] Address [address] [place] [address] Care Team Providers Care Airways Control Specialist Name Role Phone Penelope Walker APRN-[facility] Unavailable Blane Beavers DO Primary Care Provider Emergency Department Transitional Care Management (TCM) Status:Closed (Closed) Start date:12/23/2024 Enrollment reason:Identified using hospital discharge data End date:12/26/2024 Close reason:Unable to reach patient Overview Discharged from [facility] ER on 12/23. Please contact within 2 days of discharge for ERTOC and schedule a follow-up appointment if needed. Continued Care and Services Coordination
--- OUTSIDE RECORDS SUMMARY | 2024-12-30 15:08 | XMS_ITS | Clinical Summary ---
Author Organization [facility] Address [address] [facility] [place] [address] Care Team Providers Care Cook Fruit Name Role Phone Unavailable Primary Care Provider Unavailabl e Source Comments The following information is NOT included in Care Everywhere downloads:Psychiatric notes, ECG results, Cardiac Rehab notes, Pulmonary Function notes, data from SmartForms (includes but not limited toPregnancy data,audiograms, eye exams, pre-surgical evaluation notes, well-child exam data).[facility] Social History Tobacco UseTypesPacks/DayYears UsedDateSmoking Tobacco: Never Assessed CommentsUnknownSex and Gender InformationValueDate RecordedSex Assigned at Not on fileLegal EqvWzqpnw40/04/2025 1:34 PM EDTGender IdentityNot on fileSexual OrientationNot on file Last Filed Vital Signs Vital SignReadingTime TakenCommentsBlood Nxhukmcr783/7108 3:34 AM EDT Upexs6797 3:34 AM NTLYopdriqlnxp44.7 ??C (99.8 ??F)09/24/2024 3:34 AM EDTRespiratory Oevb4588 3:34 AM EDTOxygen Mkkismbkiu15%09/24/2024 3:34 AM EDTRAInhaled Oxygen Concentration--Weight--Height--Body Mass Index-- Plan of Treatment Health MaintenanceDue DateLast DoneCommentsHIV Test12/18/2010Hepatitis C Jpyfqrwe11/30/2014Tdap Jhocyxa2612/18/2013Hepatitis A (HAV) Vaccine (optional start 19+ years)12/18/2014Hepatitis B (HBV) Vaccine (1 of 3 - 19+ 3-dose series) 12/18/2014Pap Smear10/30/2017HPV Vaccine (optional start 27-45 years)12/18/2022 COVID-19 Vaccine ( - 2024- season)2024Influenza Vaccine (#1)2024 Shingles (RZV) Vaccine (1 of 2)12/18/2045MammographyDiscontinuedPneumococcal Vaccine(s)Aged OutNo longer eligible based on patient's age to complete this topic Insurance * Guarantor: Emma MahanAccount TypeRelation to PatientDate of BirthPhone Billing AddressPersonal/HridvjSivx[birth year][address] [address]
--- OUTSIDE RECORDS SUMMARY | 2024-12-30 15:08 | XMS_ITS | Encounter Summary ---
Author Organization [facility] Address [address] [place] [address] Care Team Providers Care Residential Care Officer Name Role Phone Sury-Penelope Saldana APRN-SETUP TECHNICIAN Unavailable Blane Beavers DO Primary Care Provider Encounter Details DateTypeDepartmentCare Team (Latest Contact Info)Xltrzfwlxum77/05/2025Patient Outreach [facility] [address] [place] [address] Alix Aguirre LPN [address] [facility] [email or web address] [place] [address] Social History Tobacco UseTypesPacks/DayYears UsedDateSmoking Tobacco: NeverSmokeless Tobacco: NeverAlcohol UseStandard Drinks/WeekCommentsNot Currently0 (1 standard drink = 0.6 oz pure alcohol)80-200 mg of caffiene, energy ckjtgwV2096 Health Literacy AnswerDate RecordedHow often do you [...] times a week09/25/2024How often do you attend anabaptist or voodoo services?Never09/25/2024Do you belong to any clubs or organizations such as anabaptist groups, unions, fraternal or athletic groups, or school groups?No09/25/2024How often do you attend meetings of the clubs or organizations you belong to?Never09/25/2024re you , , , , never , or living with a partner?Dzhdtks6309/25/2024UDIT-C AnswerDate RecordedQ1: How often do you have [...] heating?Not very hard09/25/2024 PHQ-2AnswerDate RecordedPatient Health Questionnaire-2 Vnaxh143Finmountain view hospital [place] of [facility] Health - Occupational Stress QuestionnaireAnswerDate [...] steady place to sleep or slept in [facility] (including now)?No02/09/2023Housing Stability Vital SignAnswerDate RecordedIn the last 12 months, was there a time when you were not able to pay the mortgage or rent on time?No09/25/2024In the past 12 months, how many times have you moved where you were living?t any time in the past 12 months, were you homeless or living in a prison (including now)?No09/25/2024 EducationAnswerDate RecordedWhat is the highest level of school you have completed or the highest degree you have received?Master's degree (e.g., MA, MS, Jennifer, MEd, BURGLAR ALARM INSTALLER, NILAM)4CommentsUnknownSex and Gender Information ValueDate RecordedSex Assigned at BirthNot on fileLegal IomXpfuuj88/15/2023 6:35 PM EDTGender IdentityNot on fileSexual OrientationNot on fileOccupationIndustry Job Start DateJob End DateNot on fileNot on fileNot on fileNot on filedocumented as of this encounter Progress Notes * Alix Aguirre LPN - 12/24/2024 4:01 PM EST <December 24, 2024, 16:02 - Alix Aguirre LPN> Request for ER record faxed to [facility] Medical Records. <December 25, 2024, 09:06 - Alix Aguirre LPN> ER record reviewed, pt to [facility] ER 12/22 with left flank pain, vomiting. Pt with known history of kidney stones. CT Abd/Pelvis showing left 5 mm kidneystone obstructing at [facility] with mild hydronephrosis. UA indicative of infection. Pt given Rocephin inER, discharged to home in stable condition with prescription for Keflex 500 mg twice daily x 7 daysand Ketorolac 10 mg every 8 hours as needed. Pt will follow up with Urology as scheduled. Call to pt., with request for return call. <December 26, 2024, 08:43 - Alix Aguirre LPN> Attempt to contact pt., no answer/return call received. Noted pt did have bilateral cystoscopy with bilateral renal stent placement done 12/25 by . Flowsheet Row Patient Outreach from 12/24/2024 in [facility] with Alix Aguirre LPN Hospital Information ED, Hospital or Jail Facility Discharge? ED Patient has been contacted within 2 days of being seen in the ED No Have two attempts been made, within 2 days of being seen in the ED, to contact the patient? Yes Diagnosis Bilateral Renal Stones Discharge Date 12/22/24 Discharged To: Home Setting Discharge Hospital [facility] Engagement Call Start Time 45 Admission Date 12/22/24 Medications Appointments Self Management Patient Teaching Wrap Up Wrap Up Additional Comments Attempt to contact x 2, unable to contact. documented in this encounter Plan of Treatment DateTypeDepartmentCare Team (Latest Contact Info)Xwetjpjvrty68/20/2025 1:00 PM ESTOffice Visit [facility] [address] [facility] [address] [place] [address] Penelope Walker, NUCLEAR TECHNOLOGIST-SETUP TECHNICIAN [address] [facility] [address] [place] [address] documented as of this encounter Visit Diagnoses Diagnosis Kidney stones- Primary Calculus of kidney Dysuria documented in this encounter Additional Health Concerns AssessmentNoted TimePHQ-9 Depression Total Score: 3:06 PM EDT documented as of this encounter Care Teams Team MemberRelationshipSpecialtyStart DateEnd Date Blane Beavers DO [address] [place] [address] PCP - GeneralFamily Vdenwfcq57/22/23 Penelope Walker, TRISTAN-SETUP TECHNICIAN [address] [facility] [address] [place] [address] Nurse PractitionerBehavioral Health07/28/22documented as of this encounter
== END 2024-12-30 15:07 | disposition home or self-care (01) ==
LOC: PST 15:06
PROVIDERS: PCP Family Medicine; Visit Provider Urology
DX: Z01.818 Encounter for other preprocedural examination (principal); N20.0 Calculus of kidney

== ENCOUNTER 2025-01-01 12:59 | Day surgery (SDC) | payer OTHER, SELFPAY ==
--- OUTSIDE RECORDS SUMMARY | 2025-01-01 13:04 | XMS_ITS | Clinical Summary ---
Author Organization [facility] Address [address] [place] [address] Care Team Providers Care Garage Attendant Name Role Phone Penelope Walker APRN-GRATED CHEESE MAKER Unavailable Blane Beavers DO Primary Care Provider [phone] Allergies Active AllergyReactionsCriticalityNoted DateCommentsEtonogestrel-Ethinyl DjjbsozqyJzksx62/13/2023 Severe depression Medications MedicationSigDispense QuantityRefillsLast FilledStart DateEnd [...] capsule ctive Active Problems ProblemNoted DateDiagnosed DateChronic ebdreowg85/08/8338Kjjwpck59/08/2025Kidney asxnwh4009/26/2024Nausea and ffnhpbna04/08/2025 Overview (09/26/2024): Outside Source Comment: Problem List clean-up per request of Phys. EHR Cmte Abnormal cytological findings in specimens from other organs, systems and grfmumx3502/08/2023annabis abuse02/08/2023ervical high risk HPV (human papillomavirus) test bzkwppuo88/21/9664Mfjavyinzq66/21/2023isorder of female genital organ02/08/2023Menstrual bvswyxqw15/21/2023ipolar 2 qrrcbyxs73/13/2023 Mkspfef1307/01/2022 Encounters DateTypeDepartmentCare IvzvDiijknzzamk79/05/2025Patient Outreach [facility] [address] [place] [address] Alix Aguirre, CONSTRUCTION REPRESENTATIVE 11/27/2024 3:00 PM EDTOffice Visit [facility] [address] [place] [address] [place] [phone] Sury-Penelope Saldana, FOOD PRODUCT INSPECTOR-GRATED CHEESE MAKER Bipolar 2 disorder (HCC); Mzfffjf2211/27/2024amboo flowsheet [facility] [address] [place] [address] [place] [address] Sury-Penelope Saldana, FOOD PRODUCT INSPECTOR-GRATED CHEESE MAKER 11/27/20245307Ppnkvo63/26/2025Patient Outreach [facility] [address] [place] [address] SundayDayana, CONSTRUCTION REPRESENTATIVE 11/12/2024bstract [facility] [address] [place] [address] [place] [address] Blane Beavers DO 11/06/2024Refill [facility] [address] [place] [address] [place] [address] Suyr-Penelope Saldana M, FOOD PRODUCT INSPECTOR-GRATED CHEESE MAKER Bipolar 2 disorder (HCC)10/17/2024External Result Encounter [facility] External Department Unsolicited Adamowicz, Blane J, DO 5Abstract [facility] [address] [place] [place] [address] Blane Beavers DO from Last 3 Months Immunizations ImmunizationAdministration DatesNext DueDTaP, Wnjmkrhugqo65/07/2002,01/15/1998, 07/01/1996,05/01/1996,02/29/1996Hep B, Adolescent or Tciysffqp06/13/1997, 02/29/1996,1995IPV04/25/2001,01/15/1998,05/01/1996,02/29/1996Influenza, Rndtbchdwii21/03/2023,11/25/2019,01/24/2019Influenza, injectable, MDCK, preservative free, zkrurwmchoqx30/06/2019Influenza, injectable, quadrivalent 03/06/2023Influenza, injectable, quadrivalent, preservative free12/22/2022, 11/25/2019MMR03/06/2019,08/16/2001,04/06/1997PPD Test10/24/2022,05/09/2019, 05/02/2019,02/28/2019Polio, Eqvlzcafdbc19/07/2002,01/15/1998,05/01/1996, 02/29/1996Tdap103/27/2018,10/09/2017,10/23/20141772Tbvozrhau73/08/2001 Family History Medical HistoryRelationNameCommentsHypertensionFatherBrianTesticular cancer FatherBrianDiabetesMotherRebeccaDepressionMother's BrotherDJSchizophrenia Mother's BrotherDJCrohn's diseaseMother's SisterLung cancerPaternal Grandfather NywvjufuDovxYxdfcgYcpkvcnfZbwymek3Emavbocc3OqxyxfBcicoRctfrEraulpTzynvgzMgwpf Mother's BrotherDJMother's SisterPaternal GrandfatherSon2 Social History Tobacco UseTypesPacks/DayYears UsedDateSmoking Tobacco: NeverSmokeless Tobacco: Never Tobacco Cessation:Counseling Given: Not Answered Alcohol UseStandard Drinks/WeekCommentsNot Currently0 (1 standard drink = 0.6 oz pure alcohol)80-200 mg of caffiene, energy dvdznyF4558 Health LiteracyAnswerDate RecordedHow often do you need [...] times a week09/25/2024How often do you attend latter-day or synagogue services?Never09/25/2024Do you belong to any clubs or organizations such as latter-day groups, unions, fraternal or athletic groups, or school groups?No09/25/2024How often do you attend meetings of the clubs or organizations you belong to?Never09/25/2024re you , , , , never , or living with a partner?Viwflvl7909/25/2024UDIT-C AnswerDate RecordedQ1: How often do you have [...] heating?Not very hard09/25/2024 PHQ-2AnswerDate RecordedPatient Health Questionnaire-2 Ykzxo151F[facility] [place] of Occupational Health - Occupational Stress QuestionnaireAnswerDate [...] were you homeless or living in a chcf (including now)?No09/25/2024 EducationAnswerDate RecordedWhat is the highest level of school you have completed or the highest degree you have received?Master's degree (e.g., MA, MS, Jennifer, MEd, DECORATOR MANNEQUIN, NILAM)4CommentsUnknownSex and Gender Information ValueDate RecordedSex Assigned at BirthNot on fileLegal OtwAkzvyr69/15/2023 6:35 PM EDTGender IdentityNot on fileSexual OrientationNot on fileOccupationIndustry Job Start DateJob End DateNot on fileNot on fileNot on fileNot on file Last Filed Vital Signs Vital SignReadingTime TakenCommentsBlood Jzopyplc521/8611/27/2024 3:00 PM EDT Gnvxg188511/27/2024 3:00 PM HQRDgvarceobjn96.3 ??C (97.4 ??F)04/08/2024 9:02 AM ESTRespiratory Rate--Oxygen Guyssvgmkh03%04/08/2024 9:02 AM ESTInhaled Oxygen Concentration--Vnfcnz35.6 kg (180 lb)11/27/2024 3:00 PM HQALimyds689.5 cm (5' 2 )04/08/2024 9:02 AM ESTBody Mass Index32.9204/08/2024 9:02 AM EST Plan of Treatment DateTypeDepartmentCare Team (Latest Contact Info)Lzbvgyitoav53/20/2025 1:00 PM ESTOffice Visit [facility] [address] [facility] [address] [place] [address] Penelope Walker APRN-GRATED CHEESE MAKER 112 [facility] [address] [place] [address] Health MaintenanceDue DateLast DoneCommentsCOVID-19 Vaccine ( season) 511/, 12/08/2020Influenza Vaccine (#1)5003/06/2023, 12/22/2022, 12/22/2022, Additional history existsPneumococcal Vaccine: Pediatrics (0 to 5 Years) and At-Risk Patients (6 to 64 Years)Aged OutNo longer eligible based on patient's age to complete this topic Procedures Procedure NamePriorityDate/TimeAssociated DiagnosisCommentsCBC WITH AUTO XVECUDATXASMAhkugzs62/29/2025 2:10 PM EDT from Last 3 Months Results * (ABNORMAL) CBC auto differential (10/17/2024 2:10 PM EDT)ComponentValueRef RangeTest MethodAnalysis TimePerformed AtPathologist SignatureWBC9.43.8 - 11.6 [CFU]/mL10/17/2024 2:31 PM [facility] CtrUNCORRECTED WHITE BLOOD COUNT9.43.8 - 11.6 10*3/uL10/17/2024 2:31 PM [facility] CtrRBC4.323.60 - 5.00 10*6/uL10/17/2024 2:31 PM [facility] FpsJZRHAAYIDC01.6(L)11.8 - 15.4 g/dL10/17/2024 2:31 PM [facility] MmhMXMPOFBBVB09.534.0 - 46.4 %10/17/2024 2:31 PM [facility] AmeOPK37.8(L)80 - 100 fL10/17/2024 2:31 PM [facility] IckFHE91.924.7 - 34.3 pg10/17/2024 2:31 PM [facility] EdaSALX74.732.0 - 35.0 g/dL10/17/2024 2:31 PM [facility] CtrRED CELL DISTRIBUTION WIDTH, RDW18.9(H)11.9 - 15.3 % 10/17/2024 2:31 PM [facility] CtrPLATELET JSLZO919(H)150 - 450 10*3/uL10/17/2024 2:31 PM [facility] CtrMEAN PLATELET VOLUME, MPV7.36.3 - 10.7 fL10/17/2024 2:31 PM [facility] CtrNEUTROPHILS, %54.0. %10/17/2024 2:31 PM [facility] LYMPHOCYTES, %34.2. %10/17/2024 2:31 PM [facility] MONOCYTE/MACROPHAGE, %6.4. %10/17/2024 2:31 PM [facility] CtrEOSINOPHILS, %4.4. %10/17/2024 2:31 PM [facility] BASOPHILS, %1.0. %10/17/2024 2:31 PM [facility] CtrNRBC0.00 - 0.5 /100{WBC}10/17/2024 2:31 PM [facility] NEUTROPHILS5.11.8 - 7.7 10*3/uL10/17/2024 2:31 PM [facility] CtrLYMPHOCYTES3.21.00 - 4.8 10*3/uL10/17/2024 2:31 PM [facility] CtrMONOCYTES0.60.0 - 0.8 10*3/uL10/17/2024 2:[address] [facility] CtrEOSINOPHILS0.40.0 - 0.45 10*3/uL10/17/2024 2:31 PM [facility] CtrBASOPHILS0.10.0 - 0.2 10*3/10/17/2024 2:31 PM [facility] CtrSpecimen (Source)Anatomical Location / LateralityCollection Method / VolumeCollection TimeReceived TimeBlood (Blood)10/17/2024 2:10 PM EDT10/17/2024 2:18 PM EDT Narrative Authorizing ProviderResult TypeResult StatusBlane Severino DOLAB BLOOD ORDERABLESFinal ResultPerforming OrganizationAddressCity/State/ZIP CodePhone Number [facility] [address] [place] [address], [facility] [address] [place] [address] from Last 3 Months Insurance * Guarantor: Emma Mahan TypeRelation to PatientDate of BirthPhone Billing AddressPersonal/YnznbkQsod94/30/1996 [address] [address] [place] [address] Care Teams Team MemberRelationshipSpecialtyStart DateEnd Date Blane Beavers DO [address] [facility] [address] [place] [address] PCP - GeneralFamily Swhczxoo43/22/23 Penelope Walker APRN-GRATED CHEESE MAKER [address] [facility] [address] [place] [address] [facility]07/28/22
--- OUTSIDE RECORDS SUMMARY | 2025-01-01 13:04 | XMS_ITS | Clinical Summary ---
Author Organization [facility] Address [address] [facility] [place] [address] Care Team Providers Care Mix House Operator Name Role Phone Unavailable Primary Care Provider Unavailabl e Source Comments The following information is NOT included in Care Everywhere downloads:Psychiatric notes, ECG results, Cardiac Rehab notes, Pulmonary Function notes, data from SmartForms (includes but not limited toPregnancy data,audiograms, eye exams, pre-surgical evaluation notes, well-child exam data).[facility] Social History Tobacco UseTypesPacks/DayYears UsedDateSmoking Tobacco: Never Assessed CommentsUnknownSex and Gender InformationValueDate RecordedSex Assigned at Not on fileLegal WsqTldjoq09/04/2025 1:34 PM EDTGender IdentityNot on fileSexual OrientationNot on file Last Filed Vital Signs Vital SignReadingTime TakenCommentsBlood Ugpbkcvu743/7108 3:34 AM EDT Gubyg4352 3:34 AM LEWAucafjvxdjs33.7 ??C (99.8 ??F)09/24/2024 3:34 AM EDTRespiratory Rnxq5395 3:34 AM EDTOxygen Dhbpfbphug32%09/24/2024 3:34 AM EDTRAInhaled Oxygen Concentration--Weight--Height--Body Mass Index-- Plan of Treatment Health MaintenanceDue DateLast DoneCommentsHIV Test12/18/2010Hepatitis C Rproczhw51/30/2014Tdap Wpigrrn1612/18/2013Hepatitis A (HAV) Vaccine (optional start 19+ years)12/18/2014Hepatitis B (HBV) Vaccine (1 of 3 - 19+ 3-dose series) 12/18/2014Pap Smear10/30/2017HPV Vaccine (optional start 27-45 years)12/18/2022 COVID-19 Vaccine ( - 2024- season)2024Influenza Vaccine (#1)2024 Shingles (RZV) Vaccine (1 of 2)12/18/2045MammographyDiscontinuedPneumococcal Vaccine(s)Aged OutNo longer eligible based on patient's age to complete this topic Insurance * Guarantor: Emma MahanAccount TypeRelation to PatientDate of BirthPhone Billing AddressPersonal/ArmvorKxxx83/[birth year][address] [address]
--- OUTSIDE RECORDS SUMMARY | 2025-01-01 13:04 | XMS_ITS | Clinical Summary ---
Author Organization [facility] tem Address [id number] [address] [place] [address] Care Team Providers Care Abstract Manager Name Role Phone Unavailable Primary Care Provider Unavailabl e Allergies Active AllergyReactionsCriticalityNoted DateCommentsEtonogestrel-Ethinyl Aceysdzxc08/01/2021 Medications MedicationSigDispense QuantityRefillsLast FilledStart DateEnd DateStatus sertraline [...] Problems ProblemNoted DateDiagnosed DateFlank pain10/01/2024 Encounters DateTypeDepartmentCare AtljLwmsiqtsrmz38/13/2025 8:54 AM EDT - 10/01/2024 2:33 PM EDTEmergency [facility] [place] [facility] Department [address] [place] [address] Boaz Fraser DO Ford, Jeffrey S, MD Flank pain (Primary Dx) Discharge Disposition: Left Against Medical Advice or Discontinued Care 10/01/2024Travelfrom Last 3 Months Family History Medical HistoryRelationNameCommentsHypertensionFatherCrohn's diseaseMaternal AuntDepressionMaternal UncleSchizophreniaMaternal UncleLung cancerPaternal GrandfatherRelationNameStatusCommentsBrotherAliveDaughterAliveFatherAlive Maternal AuntMaternal UncleMotherAlivePaternal GrandfatherSonAlive Social History Tobacco UseTypesPacks/DayYears UsedDateSmoking Tobacco: NeverSmokeless Tobacco: NeverAlcohol UseStandard Drinks/WeekCommentsNot Currently0 (1 standard drink = 0.6 oz pure alcohol)ChildcareAnswerDate OnugliivPgkajtywiAvvxyta04/09/2019 EmploymentAnswerDate TyurttyfXsktuxhiyxCqujftn01/09/2019Hunger ScreeningAnswer Date RecordedWithin the past 12 months we worried whether our food would run out before we got money to buy more.Never True10/01/2024Within the past 12 months the food we bought just didn't last and we didn't have money to get more.Never True10/01/2024Purpose - LifeAnswerDate RecordedPurpose and direction in life Lqbgkfa21/11/2021CommentsNoSex and Gender InformationValueDate Recorded Sex Assigned at BirthNot on fileLegal AgyZjhznz04/06/2015 12:11 PM EDTGender IdentityNot on fileSexual OrientationNot on file Last Filed Vital Signs Vital SignReadingTime TakenCommentsBlood Xwtagsvw177/9008 2:28 PM EDT Gdifo598710/01/2024 2:28 PM CRQHlsvahhezsl00.3 ??C (99.2 ??F)10/01/2024 9:15 AM EDTRespiratory Lbtl123310/01/2024 2:28 PM EDTOxygen Hmemslbbqp48%10/01/2024 2:28 PM EDTInhaled Oxygen Concentration--Kdpjmp77.2 kg (143 lb 12.8 oz)05/25/2020 9:08 AM HGTVskgfd437 cm (5' 3 )05/25/2020 9:08 AM EDTBody Mass Index25.47 05/25/2020 9:08 AM EDT Plan of Treatment Health MaintenanceDue DateLast DoneCommentsDepression Cddyvidhb91/30/2008Tobacco Nqtdqrowb00/30/2008dult BMI Kyvnlfrgp89/30/2014Pap Smear/12/2019 COVID-19 Vaccine ( season)511/, 12/08/2020Influenza Ijexghq06/, 12/22/2022, 11/25/2019, Additional history exists DTaP,Tdap and Td Vaccines (9 - Td or Tdap), 10/09/2017, 10/23/2014, Additional history exists Medical Devices Not on file Procedures Procedure NamePriorityDate/TimeAssociated DiagnosisCommentsPOCT NURSING URINE MACROSCOPIC FILhzvkqy19/13/2025 11:26 AM EDT ER EXTRA URINE VORZUWUUXD09/13/2025 11:12 AM EDT ER EXTRA URINE IHNWTCRPUYV71/13/2025 11:12 AM EDT ER EXTRA ZUJGCZPIU59/13/2025 11:12 AM EDT BLOOD ENLCWHMLFON12/13/2025 10:34 AM EDT BLOOD HFUEWVHUKEY19/13/2025 10:[address] ABDOMEN AND PELVIS W VIPRRYQK60/13/2025 9:55 AM EDT MUNOZ TOP ON FYECHTY9010/01/2024 9:27 AM EDT LAVENDER RPRTVUC5910/01/2024 9:27 AM EDT PST HKUINXH6210/01/2024 9:27 AM EDT BLUE LMIYVYH6710/01/2024 9:27 AM EDT LACTATE W/ REFLEXAdd-On08/ 9:27 AM EDT MAGNESIUMSTAT Add-on10/01/2024 9:27 AM EDT COMPREHENSIVE METABOLIC PANELSTAT Add-on10/01/2024 9:27 AM EDT CBC WITH AUTO DIFFERENTIALSTAT Add-on10/01/2024 9:27 AM EDT RAINBOW KMIJFDZE07/13/2025 9:27 AM EDT HIGH RISK HPV W/SDCDKmbagrc89/11/2020 from Last 3 Months or Most Recently Relevant to Health Maintenance Results * (ABNORMAL) POCT Nursing Urine Macroscopic UA (10/01/2024 11:26 AM EDT) ComponentValueRef RangeTest MethodAnalysis TimePerformed AtPathologist [facility] Urine Specific Gravity1.0101.010, 1.015, 1.020, 1.1624110/01/2024 11:18 AM [facility] Urine Leukocyte EsteraseSmall(A) Nyvobhwf20/13/2025 11:18 AM [facility] Urine Nitrite ZdzvpaaxUosqwajr07/13/2025 11:18 AM [facility] Urine pH 6.55.0, 6.0, 6.5, 7.0, 7.5, 8.0, 8.5, 5.5010/01/2024 11:18 AM [facility] Urine ProteinTrace(A)Ylnlffca87/13/2025 11:18 AM EDT [facility] Urine PrkpnnqTnbkbxuxKdioajrv80/13/2025 11:18 AM [facility] Urine PrauuwePasbdrhlEtofqnoc46/13/2025 11:18 AM [facility] Urine Urobilinogen0.2 E.U./dL10/01/2024 11:18 AM [facility] Urine BilirubinNegativeNegative 10/01/2024 11:18 AM [facility] Urine Blood/HGBSmall(A) Wqypzaox15/13/2025 11:18 AM [facility] LABORATORYSpecimen (Source) Anatomical Location / LateralityCollection Method / VolumeCollection Time Received TiakHflyh31/13/2025 11:26 AM EDT10/01/2024 11:18 AM EDT Narrative Authorizing ProviderResult TypeResult StatusRobert W Fraser DOPOINT OF CARE TEST ORDERABLESFinal ResultPerforming OrganizationAddressCity/State/ZIP Code Phone Number [facility] [address] [place] [address], [place] * Extra Urine Rossiter (10/01/2024 11:12 AM EDT)ComponentValueRef RangeTest Method Analysis TimePerformed AtPathologist SignatureExtra TubeAuto Resulted 10/01/2024 1:01 PM [facility] LABORATORYSpecimen (Source) Anatomical Location / LateralityCollection Method / VolumeCollection Time Received TimeUrineUrine specimen collection, clean catch / Xenscyn0810/01/2024 11:12 AM EDT10/01/2024 11:59 AM EDT Narrative Authorizing ProviderResult TypeResult StatusRobert W Fraser DOURINE ORDERABLES Final ResultPerforming OrganizationAddressCity/State/ZIP CodePhone Number [facility] [address] [place] [address], * Extra Urine Culture (10/01/2024 11:12 AM EDT)ComponentValueRef RangeTest MethodAnalysis TimePerformed AtPathologist SignatureExtra TubeAuto Resulted 10/01/2024 1:01 PM [facility] LABORATORYSpecimen (Source) Anatomical Location / LateralityCollection Method / VolumeCollection Time Received TimeUrineUrine specimen collection, clean catch / Ianlhyd6710/01/2024 11:12 AM EDT10/01/2024 11:59 AM EDT Narrative Authorizing ProviderResult TypeResult StatusRobert W Fraser DOURINE ORDERABLES Final ResultPerforming OrganizationAddressCity/State/ZIP CodePhone Number [facility] [address] [place] [address], * Extra Urine (10/01/2024 11:12 AM EDT)ComponentValueRef RangeTest Method Analysis TimePerformed AtPathologist SignatureExtra TubeAuto Resulted 10/01/2024 1:01 PM [facility] LABORATORYSpecimen (Source) Anatomical Location / LateralityCollection Method / VolumeCollection Time Received TimeUrineUrine specimen collection, clean catch / Afngwyh4110/01/2024 11:12 AM EDT10/01/2024 11:59 AM EDT Narrative Authorizing ProviderResult TypeResult StatusRobert W Fraser DOURINE ORDERABLES Final ResultPerforming OrganizationAddressCity/State/ZIP CodePhone Number [facility] [address] [place] [address], * Blood culture #2 (10/01/2024 10:34 AM EDT) Only the most recent of2 resultswithin the time period is included. ComponentValueRef RangeTest MethodAnalysis TimePerformed AtPathologist Signature CULTURE RESULTSNO GROWTH 5 DAYS10/06/2024 12:02 PM [facility] LABORATORYSpecimen (Source)Anatomical Location / LateralityCollection Method / VolumeCollection TimeReceived TimeBloodVenous blood / UnknownVenipuncture / Atzovae0910/01/2024 10:34 AM EDT10/01/2024 11:21 AM EDT Narrative Authorizing ProviderResult TypeResult StatusAndrew D Routt MDMICROBIOLOGY - GENERAL ORDERABLESFinal ResultPerforming OrganizationAddressCity/State/ZIP CodePhone Number [facility] [address] [place] [address], * CT abdomen and pelvis with contrast [...] AtPathologist SignatureExtra TubeAuto Resulted 10/01/2024 11:01 AM [facility] LABORATORYSpecimen (Source) Anatomical Location / LateralityCollection Method / VolumeCollection Time Received TimeBloodVenous blood / Xqhpvgg6510/01/2024 9:27 AM EDT10/01/2024 10:14 AM EDT Narrative Authorizing ProviderResult TypeResult StatusRobert W [facility] BLOOD ORDERABLESFinal ResultPerforming OrganizationAddressCity/State/ZIP CodePhone Number [facility] [address] [place] [address], [place] [phone] * Lactate w/ Reflex (10/01/2024 9:27 AM EDT)ComponentValueRef RangeTest Method Analysis TimePerformed AtPathologist SignatureLACTATE W/REFLEX1.40.4 - 2.0 mmol/L10/01/2024 10:33 AM [facility] LABORATORYSpecimen (Source)Anatomical Location / LateralityCollection Method / VolumeCollection TimeReceived TimeBloodVenous blood / Tefduar7910/01/2024 9:27 AM EDT10/01/2024 10:14 AM EDT Narrative [facility] - 10/01/2024 10:33 AM EDT Result did not trigger repeat Lactate, re-order if needed. Authorizing ProviderResult TypeResult StatusKam DELGADILLO BLOOD ORDERABLESFinal ResultPerforming OrganizationAddressCity/State/ZIP CodePhone Number [facility] [address] [place] [address], * (ABNORMAL) CBC auto differential (10/01/2024 9:27 AM EDT)ComponentValueRef RangeTest MethodAnalysis TimePerformed AtPathologist JgwwnnhxgSMK05.3(H)4 - 11 x10E9/L10/01/2024 10:36 AM [facility] LABORATORYRBC Count3.94 3.8 - 5.2 X10E12/L10/01/2024 10:36 AM [facility] Hxphdpagth40.2(L)11.7 - 15.5 g/dL10/01/2024 10:36 AM [facility] ZOXPJRADEOIeqqtfwuay15.0(L)35 - 47 %10/01/2024 10:36 AM [facility] AXATCJJYKJNPT69(L)80 - 100 fL10/01/2024 10:36 AM [facility] XAMCHTLFBVFJB12.9(L)27 - 34 pg10/01/2024 10:36 AM [facility] IBWVIFWPGJFOMJ29.032 - 36 g/dL10/01/2024 10:36 AM [facility] WYEMJDJPTOLZT77.6(H)11.5 - 15 %10/01/2024 10:36 AM [facility] LABORATORYPlatelet Count1,005(HH)150 - 450 X10E9/L10/01/2024 10:36 AM [facility] LABORATORYMPV7.17 - 12 fL10/01/2024 10:36 AM [facility] LABORATORYNeutrophils %83%10/01/2024 10:36 AM [facility] LABORATORYComment:This is an appended report. These results have been appended to a previously preliminary verified report. Lymphocytes %14%10/01/2024 10:36 AM [facility] Comment:This is an appended report. These results have been appended to a previously preliminary verified report.Monocytes %3%10/01/2024 10:36 AM EDT [facility] LABORATORYComment:This is an appended report. These results have been appended to a previously preliminary verified report. Neutrophils Absolute (M)16.0(H)1.5 - 6.6 10*3/uL10/01/2024 10:36 AM [facility] LABORATORYComment:This is an appended report. These results have been appended to a previously preliminary verified report.Lymphocytes Absolute2.71.0 - 3.5 10*3/uL10/01/2024 10:36 AM [facility] LABORATORYComment:This is an appended report. These results have been appended to a previously preliminary verified report.Monocytes Absolute0.60.0 - 0.9 10*3/uL10/01/2024 10:36 AM [facility] LABORATORYComment:This is an appended report. These results have been appended to a previously preliminary verified report.Rouleaux1+10/01/2024 10:36 AM [facility] LABORATORYComment:This is an appended report. These results have been appended to a previously preliminary verified report.Differential TypeMANUAL KNXKJPJUGLEU18/13/2025 10:36 AM [facility] LABORATORYComment: This is an appended report. These results have been appended to a previously preliminary verified report.Specimen (Source)Anatomical Location / Laterality Collection Method / VolumeCollection TimeReceived TimeBloodVenous blood / Njbdmat6210/01/2024 9:27 AM EDT10/01/2024 9:38 AM EDT Narrative Authorizing ProviderResult TypeResult StatusRobert W [facility] BLOOD ORDERABLESFinal ResultPerforming OrganizationAddressCity/State/ZIP CodePhone Number [facility] [address] [place] [address], * Lavender Top (10/01/2024 9:27 AM EDT)ComponentValueRef RangeTest Method Analysis TimePerformed AtPathologist SignatureExtra TubeAuto Resulted 10/01/2024 11:01 AM [facility] LABORATORYSpecimen (Source) Anatomical Location / LateralityCollection Method / VolumeCollection Time Received TimeBloodVenous blood / Eufsmib8010/01/2024 9:27 AM EDT10/01/2024 9:38 AM EDT Narrative Authorizing ProviderResult TypeResult StatusRobert W Fraser DOLAB BLOOD ORDERABLESFinal ResultPerforming OrganizationAddressCity/State/ZIP CodePhone Number [facility] [address] [place] [address], * PST TOP (10/01/2024 9:27 AM EDT)ComponentValueRef RangeTest MethodAnalysis TimePerformed AtPathologist SignatureExtra TubeAuto Jzdecbbd20/13/2025 11:01 AM [facility] LABORATORYSpecimen (Source)Anatomical Location / LateralityCollection Method / VolumeCollection TimeReceived TimeBloodVenous blood / Qrumijc8410/01/2024 9:27 AM EDT10/01/2024 9:38 AM EDT Narrative Authorizing ProviderResult TypeResult StatusRobert W Fraser DOLAB BLOOD ORDERABLESFinal ResultPerforming OrganizationAddressCity/State/ZIP CodePhone Number [facility] [address] [place] [address], * Light Blue Top (10/01/2024 9:27 AM EDT)ComponentValueRef RangeTest Method Analysis TimePerformed AtPathologist SignatureExtra TubeAuto Resulted 10/01/2024 11:01 AM [facility] LABORATORYSpecimen (Source) Anatomical Location / LateralityCollection Method / VolumeCollection Time Received TimeBloodVenous blood / Ftzpsss8410/01/2024 9:27 AM EDT10/01/2024 9:38 AM EDT Narrative Authorizing ProviderResult TypeResult StatusRobert W Fraser DOLAB BLOOD ORDERABLESFinal ResultPerforming OrganizationAddressCity/State/ZIP CodePhone Number [facility] [address] [place] [address], * Magnesium (10/01/2024 9:27 AM EDT)ComponentValueRef RangeTest MethodAnalysis TimePerformed AtPathologist SignatureMAGNESIUM2.31.8 - 2.6 mg/dL10/01/2024 10:15 AM [facility] LABORATORYSpecimen (Source)Anatomical Location / LateralityCollection Method / VolumeCollection TimeReceived Time BloodVenous blood / Lbqgksy7010/01/2024 9:27 AM EDT10/01/2024 9:38 AM EDT Narrative Authorizing ProviderResult TypeResult StatusRobert W [facility] BLOOD ORDERABLESFinal ResultPerforming OrganizationAddressCity/State/ZIP CodePhone Number [facility] [address] [place] [address], * (ABNORMAL) Comprehensive metabolic panel (10/01/2024 9:27 AM EDT)Component ValueRef RangeTest MethodAnalysis TimePerformed AtPathologist SignatureSODIUM 006837 - 146 mmol/L10/01/2024 10:15 AM [facility] POTASSIUM4.33.5 - 5.0 mmol/L10/01/2024 10:15 AM [facility] SNEKGUIKIEIMNCIHDS45(L)98 - 109 mmol/L10/01/2024 10:15 AM [facility] LABORATORYCARBON DVNCVXH0066 - 32 mmol/L10/01/2024 10:15 AM [facility] LABORATORYANION GCF654 - 15 mmol/L10/01/2024 10:15 AM EDT [facility] LABORATORYBLOOD UREA FVZKTTBF745 - 23 mg/dL10/01/2024 10:15 AM [facility] LABORATORYCREATININE1.06(H)0.40 - 1.00 mg/dL10/01/2024 10:15 AM [facility] LABORATORYComment:METHOD TRACEABLE TO IDMS BNQFGWUXOTLBRMB886(H)65 - 99 mg/dL10/01/2024 10:15 AM EDT [facility] LABORATORYCALCIUM9.38.5 - 10.5 mg/dL10/01/2024 10:15 AM [facility] LABORATORYTOTAL PROTEIN8.2(H)6.0 - 8.0 g/dL 10/01/2024 10:15 AM [facility] LABORATORYALBUMIN3.43.2 - 5.3 g/dL10/01/2024 10:15 AM [facility] LABORATORYALKALINE EAUXOEXUHEP909(H)39 - 130 U/L10/01/2024 10:15 AM [facility] QAPKEDOSHGZSI29<=41 U/L10/01/2024 10:15 AM [facility] FGVHARIBIMUQZ29(H)<=31 U/L10/01/2024 10:15 AM [facility] LABORATORYBILIRUBIN,TOTAL0.60.3 - 1.2 mg/dL10/01/2024 10:15 AM [facility] LABORATORYEGFR Non-Race Uszitqdne81>=60 ml/min/1.73sq.m 10/01/2024 10:15 AM [facility] LABORATORYComment: Reported eGFR is based on the CKD-EPI 2020 equation that does not use a race coefficient. Specimen (Source)Anatomical Location / LateralityCollection Method / Volume Collection TimeReceived TimeBloodVenous blood / Xtzdumm8110/01/2024 9:27 AM EDT 10/01/2024 9:38 AM EDT Narrative Authorizing ProviderResult TypeResult StatusRobert W [facility] BLOOD ORDERABLESFinal ResultPerforming OrganizationAddressCity/State/ZIP CodePhone Number [facility] [address] [place] [address], [place] [phone] * High risk HPV w/nancy (01/30/2020)ComponentValueRef RangeTest MethodAnalysis TimePerformed AtPathologist SignatureOther High Risk HpvSee attached report MANUALLY TRANSCRIBED RESULTSComment:See attached report Narrative Authorizing ProviderResult TypeResult StatusNot In System Ref [facility] BLOOD ORDERABLESEdited Result - FinalPerforming OrganizationAddressCity/State/ZIP Code Phone Number MANUALLY TRANSCRIBED RESULTS from Last 3 Months or Most Recently Relevant to Health Maintenance Insurance * Guarantor: Emma MahanAccount TypeRelation to PatientDate of BirthPhone Billing AddressPersonal/TbhyggErkp49/30/[address] [address] Advance Directives * Full Code (Latest Code Status on File) Date ActivatedDate InactivatedComments09/07/2017 8:59 PM09/07/2017 11:24 PM
--- OUTSIDE RECORDS SUMMARY | 2025-01-01 13:04 | XMS_ITS | Clinical Summary ---
Author Organization [facility] Address [address] [place] [address] Care Team Providers Care Wax Ball Knock Out Worker Name Role Phone Unavailable Primary Care Provider Unavailabl e Allergies Active AllergyReactionsCriticalityNoted DateCommentsEtonogestrel-Ethinyl EstradiolOther: See Xtddbhor65/15/2025 Medications MedicationSigDispense QuantityRefillsLast FilledStart DateEnd DateStatus sertraline [...] Apply 1 patch as directed.5Active Encounters DateTypeDepartmentCare KtftLbghgewevta95/18/2025Telephone Hematology/Medical Oncology [facility] [place] [address] Marquita Rosario MD Patient Qudwsr3510/03/2024 3:20 PM EDTOffice Visit Urology [address] [place] [address] Jose Townsend MD Calculus of kidney with calculus of ureter (Primary Dx); Postprocedural hematoma of a genitourinary system organ or structure following a genitourinary system procedure; Aspiration pneumonia, unspecified aspiration pneumonia type, unspecified laterality, unspecified part of lung (HCC); Thrombocytosis; Leukocytosis, unspecified type10/03/20247108Hwwxmz61/14/2025Telephone Urology [address] [place], [place] [address] Jose Townsend MD from Last 3 Months Immunizations ImmunizationAdministration DatesNext Dueinfluenza vaccine, unspecified tglvockiqtq86/16/2024 Social History Tobacco UseTypesPacks/DayYears UsedDateSmoking Tobacco: Never AssessedArea Deprivation IndexAnswerDate RecordedNational Score (1-100), lower number is lower dwsj414710/03/2024State Score (1-10), lower number is lower xwvt93710/03/2024 Data from: https://www.neighborhoodatlas.medicine.[facility].edu/. Last address used for jbbyroyclqi[address] [facility] 6010/03/2024CommentsUnknownSex and Gender InformationValueDate RecordedSex Assigned at BirthNot on fileLegal SexFemale 03/16/2023 11:25 AM ESTGender IdentityNot on fileSexual OrientationNot on file Last Filed Vital Signs Vital SignReadingTime TakenCommentsBlood Aluymthg725/7808 3:51 PM EDT Tjeaz195510/03/2024 3:51 PM EDTTemperature--Respiratory Rate--Oxygen Saturation-- Inhaled Oxygen Concentration--Ouyguh87.6 kg (180 lb)10/03/2024 3:51 PM EDTHeight --Body Mass Index-- Plan of Treatment DateTypeDepartmentCare Team (Latest Contact Info)Packybyndec95/12/2025 2:15 PM ESTOffice Visit Urology [address] [place] [address] [place] [address] [place] [address] kidney stonesHealth MaintenanceDue DateLast DoneCommentsAnxiety Screening 12/18/2013Depression Ujdyfktgr96/30/2014HIV Fxadjyonk82/30/2014Hepatitis C Rnjrijfey50/30/2014Cervical Cancer Yejmdckqa74/30/2017HPV Vaccine (1 - 3-dose SCDM series)3Covid-19 Vaccine ( season)511/, 12/08/2020Influenza Vaccine (#1)/, 12/22/2022, 11/25/2019, Additional history existsDTaP,Tdap,Td Vaccine (9 - Td or Tdap)01/24/2029 01/24/2019, 10/09/2017, 10/23/2014, Additional history existsHepatitis B Vaccine Gqrjtrfbq05/13/1997, 02/29/1996, 1995 Procedures Procedure NamePriorityDate/TimeAssociated DiagnosisCommentsXR OUTSIDE CD DICOM SVNQHN4912/25/2024 CT OUTSIDE CD DICOM BYBBCJ3112/22/2024 from Last 3 Months Results * OT-XR ABDOMEN 1V IMPORT (12/25/2024)Anatomical RegionLateralityModalityOther Specimen (Source)Anatomical Location / LateralityCollection Method / Volume Collection TimeReceived Time12/25/2024 Narrative 12/30/2024 9:03 PM EST Images were obtained outside of [facility] Procedure Note Provider, [facility] [place] - 12/30/2024 Images were obtained outside of [facility] Authorizing ProviderResult TypeResult StatusCcf ProviderRADIOLOGYFinal Result * CT-CT ABDOMEN PELVIS WO CON IMPORT (12/22/2024)Anatomical RegionLaterality ModalityOtherSpecimen (Source)Anatomical Location / LateralityCollection Method / VolumeCollection TimeReceived Time12/22/2024 Narrative 12/30/2024 9:03 PM EST Images were obtained outside of [facility] Procedure Note Provider, [facility] [place] - 12/30/2024 Images were obtained outside of [facility] Authorizing ProviderResult TypeResult StatusCcf ProviderRADIOLOGYFinal Result from Last 3 Months Insurance * Guarantor: Emma Mahan TypeRelation to PatientDate of BirthPhone Billing AddressPersonal/HfrwkcVdbu54/[birth year]/[address] [address]
--- OUTSIDE RECORDS SUMMARY | 2025-01-01 13:04 | XMS_ITS ---
Author Organization [facility] Address [address] [place] [address] Care Team Providers Care Seam Sewer Name Role Phone Penelope Walker APRN-[facility] Unavailable Blane Beavers DO Primary Care Provider Emergency Department Transitional Care Management (TCM) Status:Closed (Closed) Start date:12/23/2024 Enrollment reason:Identified using hospital discharge data End date:12/26/2024 Close reason:Unable to reach patient Overview Discharged from [facility] ER on 12/23. Please contact within 2 days of discharge for ERTOC and schedule a follow-up appointment if needed. Continued Care and Services Coordination
--- OUTSIDE RECORDS SUMMARY | 2025-01-01 13:04 | XMS_ITS | Encounter Summary ---
Author Organization [facility] Address [address] [place] [address] Care Team Providers Care Insulation Professional Name Role Phone Sury-Penelope Saldana APRN-OPERATOR SUPPLY Unavailable Blane Beavers DO Primary Care Provider [phone] Encounter Details DateTypeDepartmentCare Team (Latest Contact Info)Pocurkymdve52/05/2025Patient Outreach [facility] [address] [place] [address] Alix Aguirre LPN [address] [place] [address] Social History Tobacco UseTypesPacks/DayYears UsedDateSmoking Tobacco: NeverSmokeless Tobacco: NeverAlcohol UseStandard Drinks/WeekCommentsNot Currently0 (1 standard drink = 0.6 oz pure alcohol)80-200 mg of caffiene, energy [id number] Health Literacy AnswerDate RecordedHow often do you [...] times a week09/25/2024How often do you attend adventist or oriental orthodox services?Never09/25/2024Do you belong to any clubs or organizations such as adventist groups, unions, fraternal or athletic groups, or school groups?No09/25/2024How often do you attend meetings of the clubs or organizations you belong to?Never09/25/2024re you , , , , never , or living with a partner?Uppggzs0109/25/2024UDIT-C AnswerDate RecordedQ1: How often do you have [...] heating?Not very hard09/25/2024 PHQ-2AnswerDate RecordedPatient Health Questionnaire-2 [facility] [place] [facility] - Occupational Stress QuestionnaireAnswerDate [...] steady place to sleep or [facility] (including now)?No02/09/2023Housing Stability Vital SignAnswerDate RecordedIn the last 12 months, was there a time when you were not able to pay the mortgage or rent on time?No09/25/2024In the past 12 months, how many times have you moved where you were living?t any time in the past 12 months, were you homeless or living in a usp (including now)?No09/25/2024 EducationAnswerDate RecordedWhat is the highest level of school you have completed or the highest degree you have received?Master's degree (e.g., MA, MS, Jennifer, MEd, QUALITY ASSURANCE COACH, NILAM)4CommentsUnknownSex and Gender Information ValueDate RecordedSex Assigned at BirthNot on fileLegal NqyPdjzpb26/15/2023 6:35 PM EDTGender IdentityNot on fileSexual OrientationNot on fileOccupationIndustry Job Start DateJob End DateNot on fileNot on fileNot on fileNot on filedocumented as of this encounter Progress Notes * Alix Aguirre LPN - 12/24/2024 4:01 PM EST <December 24, 2024, 16:02 - Alix Aguirre LPN> Request for ER record faxed to [facility] Medical Records. <December 25, 2024, 09:06 - Alix Aguirre LPN> ER record reviewed, pt to [facility] ER 12/22 with left flank pain, vomiting. [...] Flowsheet Row Patient Outreach from 12/24/2024 in [facility] with Alix Aguirre LPN Hospital Information ED, Hospital or Alf Facility Discharge? ED Patient has been contacted within 2 days of being seen in the ED No Have two attempts been made, within 2 days of being seen in the ED, to contact the patient? Yes Diagnosis Bilateral Renal Stones Discharge Date 12/22/24 Discharged To: Home Setting Discharge Hospital [facility] Engagement Call Start Time 45 Admission Date 12/22/24 Medications Appointments Self Management Patient Teaching Wrap Up Wrap Up Additional Comments Attempt to contact x 2, unable to contact. documented in this encounter Plan of Treatment DateTypeDepartmentCare Team (Latest Contact Info)Uhtolhzcvpi31/20/2025 1:00 PM ESTOffice Visit [facility] [address] [facility] [address] [place] [address] Penelope Walker, ORANGE PEEL OPERATOR-OPERATOR SUPPLY [address] [facility] [address] [place] [address] documented as of this encounter Visit Diagnoses Diagnosis Kidney stones- Primary Calculus of kidney Dysuria documented in this encounter Additional Health Concerns AssessmentNoted TimePHQ-9 Depression Total Score: 3:06 PM EDT documented as of this encounter Care Teams Team MemberRelationshipSpecialtyStart DateEnd Date Blane Beavers DO [address] [place] [address] PCP - GeneralFamily Adjjxgyq09/22/23 Penelope Walker, TRISTAN-OPERATOR SUPPLY [address] [facility] [address] [place] [address] Nurse PractitionerBehavioral Health07/28/22documented as of this encounter
[2025-01-01 13:10] VITALS: BP 140/86; PULSE 91; TEMP 36.7; O2SAT 96; BMI 34.2
[2025-01-01] MEDS: LIDOCAINE 2% JELLY 10 ML UR (13:35)
--- NOTE | 2025-01-01 13:44 | PM.URSON ---
Urology Surgery Operative Note Operative Note Procedure Date: 01/01/25 Time Out Performed: yes Pre-op Diagnosis: Status post bilateral ureteroscopy and bilateral stent placement. Post-op Diagnosis: same as pre-op Procedures performed: 1. Cystoscopy. 2. Left stent removal. Anesthesia: local Primary Surgeon: Jesse Ba Complications: None Estimated blood loss (mL): 0 Findings: None encrusted bilateral stents Indications for Procedures: This lady had ureteroscopic stone manipulation and stent placement on the left and she ureteroscopy and stent placement on the right just the other week. She now presents for cystoscopy and left stent removal. She has signed an informed consent after risks were explained. Detailed description of Procedure: The patient was kept on the [facility] bed and brought into the endoscopy suite. She was in the supine position. Her legs were frog-legged and her perineum and genitalia were sterilely prepped and draped in the usual fashion. 2% lidocaine gel was passed per urethra after timeout was done by everybody in the room. I then passed a flexible cystoscope per urethra and into the bladder. I identified the left sided stent. I passed a grasping forceps through the scope and then grasped the left stent. The scope and stent were then removed without difficulty. She was then discharged to home.
[2025-01-01 13:53] VITALS: BP 134/87; BP 138/88; PULSE 68; PULSE 87; O2SAT 95; O2SAT 97
== END 2025-01-01 13:57 | disposition home or self-care (01) ==
LOC: SURGOUT 13:00
PROVIDERS: PCP Family Medicine; Visit Provider Urology
PROC: (CPT 52310; principal; 2025-01-01 13:30)
DX: Z46.6 Encounter for fitting and adjustment of urinary device (principal); Z87.442 Personal history of urinary calculi; F41.9 Anxiety disorder, unspecified; F32.A Depression, unspecified; D75.839 Thrombocytosis, unspecified; D66 Hereditary factor VIII deficiency
CPT/HCPCS: 52310